=== PATIENT | female | born 1960 | race Caucasian/White ===

== ENCOUNTER 2020-04-01 10:32 | Emergency (ER) | payer MEDICARE, SELFPAY ==
[2020-04-01 10:58] VITALS: BP 185/96; PULSE 116; RESP 16; TEMP 38.1; O2SAT 98
--- NOTE | 2020-04-01 11:15 | ED.URI ---
HPI - URI/Sore Throat General Chief Complaint: Upper Respiratory Infection Stated Complaint: sinus infection Time Seen by Provider: 04/01/20 11:15 Source: patient Mode of arrival: ambulatory Limitations: no limitations History of Present Illness HPI Narrative: Zenaida Heart is a 59 yo female with facial pressure in frontal sinuses. Has sinusiitis, fever, took steroids and pressure improved but now has fever and lots of drainage. Here to get an antibiotic- states that nothing else will work Related Data Home Medications Medication Instructions Recorded Confirmed lisinopril 10 mg PO DAILY 04/01/20 04/01/20 Allergies Allergy/AdvReac Type Severity Reaction Status Date / Time No Known Allergies Allergy Verified 04/01/20 11:08 Review of Systems Review of Systems: Narrative: CONSTITUTIONAL: Denies fever, chills, sweats. EYES: Denies visual changes, redness, discharge. ENT: Denies rhinorrhea, has congestion, sinus pressure with history of left-sided polyp ,sore throat, otalgia. CARDIOVASCULAR: Denies chest pain, palpitations, edema. RESPIRATORY: Denies dyspnea, wheezing, cough GASTROINTESTINAL: Denies abdominal pain, nausea, vomiting, diarrhea. GENITOURINARY: Denies dysuria, hematuria, abnormal discharge SKIN: Denies rash or itching. NEUROLOGIC: Denies numbness, or focal weakness. PSYCHIATRIC: Denies anxiety or depression. PMFSH Past Medical History Medical History (Updated 04/01/20 @ 11:29 by Khushboo Felder CNP) Hypertension Maxillary sinus polyp Surgical History Surgical History H/O: hysterectomy History of appendectomy Family History Family History Other Hypertension Social History Social History (Updated 04/01/20 @ 11:19 by Khushboo Felder CNP) Smoking status: Never smoker Alcohol intake: never Comments At time of signature, I agree with nursing past medical, surgical, social and family history. There is no relevant family history pertinent to the presenting complaint. Exam Narrative: Exam Narrative: GENERAL: This is a well-nourished, well-developed patient, in mild distress. HEAD: normocephalic, atraumatic. EYES: Sclera clear/white. Vision is grossly intact. EARS: External ears normal, auditory canals clear and without drainage, Hearing grossly intact. NOSE: External nose normal with nasal discharge, nares with redness, has rhinorrhea.c/o bilateral facial pain THROAT: Mucous membranes moist, posterior pharynx nild erythema NECK: Neck supple, CARDIOVASCULAR: Regular rate and rhythm without murmurs, gallops, or rubs. RESPIRATORY: Clear to auscultation. Breath sounds equal bilaterally. No wheezes, rales, or rhonchi. GASTROINTESTINAL: Abdomen soft, SKIN: warm, intact with no suspicious lesions or rash, good texture and turgor. NEURO: awake, alert, and oriented to person, place and time. There were no obvious focal neurologic abnormalities. Steady gait EXTREMITIES: Normal range of motion. BACK: Nontender without deformity Course Course Emergency Course: Patient presents with complaints of bilateral sinus pressure and frontal sinuses, has been treated by primary care physician with steroids and wants an antibiotic-states that she continues to have drainage and some bilateral pain Patient started on amoxicillin, explained antibiotic dosing-patient is convinced nothing else will work- Patient to use Tylenol or ibuprofen for fever and recommended that she start taking Zyrtec in the morning for allergic symptoms Follow-up with primary care doctor Vital Signs Vital signs: Vital Signs Temperature 100.6 F H 04/01/20 10:58 Pulse Rate 116 H 04/01/20 10:58 Respiratory Rate 16 04/01/20 10:58 Blood Pressure 185/96 H 04/01/20 10:58 Pulse Oximetry 98 04/01/20 10:58 Temperature 100.6 F H 04/01/20 10:58 Pulse Rate 116 H 04/01/20 10:58 Respiratory Rate 16 04/01
== END 2020-04-01 11:38 | disposition home or self-care (01) ==
PROVIDERS: Emergency Provider Nurse Practitioner; PCP Internal Medicine
DX: J01.11 Acute recurrent frontal sinusitis (principal); I10 Essential (primary) hypertension
CPT/HCPCS: 99213; G0463

== ENCOUNTER 2022-09-02 12:49 | Emergency (ER) | payer MEDICARE, SELFPAY ==
[2022-09-02] VITALS (8 sets, daily range): BP systolic 165–182; BP diastolic 91–130; PULSE 84–98; RESP 16–18; TEMP 36.4–36.8; O2SAT 98–100
--- NOTE | 2022-09-02 13:22 | ED.GENADULT ---
HPI - General Adult General Chief complaint: Eye Problems Stated complaint: Eye irritation Time Seen by Provider: 09/02/22 12:53 History of Present Illness HPI narrative: Zenaida is a 62F with a PMH of gastric surgery, hypertension, and sinus polyps that presented to the ED with concerns of her right eye. She believes she may have got glue in it at this time. Since then she has had some itching and irritation in the eye that is not improving. She has also had some dental pain in the upper right molars and pain in the left ear. There are no vision changes, no double vision, no fever, no chills and no eye pain with extra ocular movements. Related Data Home Medications Medication Instructions Recorded Confirmed lisinopril 10 mg tablet 10 mg PO DAILY 04/01/20 04/01/20 Allergies Allergy/AdvReac Type Severity Reaction Status Date / Time No Known Allergies Allergy Verified 04/01/20 11:08 Review of Systems Review of Systems: All systems reviewed & are unremarkable except as noted in HPI and below PMFSH Past Medical History Medical History Hypertension Maxillary sinus polyp Surgical History Surgical History H/O: hysterectomy History of appendectomy Family History Family History Other Hypertension Social History Social History Smoking status: Never smoker Alcohol intake: never Exam Const: General: healthy appearing and no acute distress Nutritional Appearance: well nourished and obese HENMT: Head: normal to inspection Ears: external ears normal Face and sinus: normal facial exam Other: TM wnl on the right Dentition is poor. Right upper and lower molars are cracked with surrounding erythema and are very TTP. Eyes: Pupils: Equal, round and reactive pupils present EOM: EOMs intact bilaterally Other: conjunctival injection on the right. Course Course Emergency Course: Fluorescein eye exam showed a 4mm round corneal ulcer at 8 o'clock. Immediately after administration of eye drops the irritation went away. BP continued to be quite elevated but there was no CP or confusion. She was given metoprolol and labs were ordered. She was also given Augmentin for her dental infection. given the conjunctival injection I have concern for bacterial conjunctivitis in addition to the corneal ulcer so she was given eye drops BP dropped with metoprolol. Vital Signs Vital signs: Vital Signs Temperature 98.3 F 09/02/22 12:50 Pulse Rate 98 09/02/22 12:50 Blood Pressure 173/130 H 09/02/22 12:50 Pulse Oximetry 98 09/02/22 12:50 Oxygen Delivery Room Air 09/02/22 12:50 Temperature 98.3 F 09/02/22 14:47 Pulse Rate 84 09/02/22 14:47 Respiratory Rate 18 09/02/22 14:47 Blood Pressure 167/91 H 09/02/22 14:47 Pulse Oximetry 98 09/02/22 14:47 Oxygen Delivery Room Air 09/02/22 14:47 Medical Decision Making Vital Signs Vital Signs: Vital Signs Temperature 98.3 F 09/02/22 12:50 Pulse Rate 98 09/02/22 12:50 Blood Pressure 173/130 H 09/02/22 12:50 Pulse Oximetry 98 09/02/22 12:50 Oxygen Delivery Room Air 09/02/22 12:50 Temperature 98.3 F 09/02/22 14:47 Pulse Rate 84 09/02/22 14:47 Respiratory Rate 18 09/02/22 14:47 Blood Pressure 167/91 H 09/02/22 14:47 Pulse Oximetry 98 09/02/22 14:47 Oxygen Delivery Room Air 09/02/22 14:47 Lab Data 09/02/22 14:11 09/02/22 14:11 Labs: Lab Results 09/02/22 09/02/22 Range/Units 14:11 14:11 WBC 7.7 (4.8-10.8) K/mm3 RBC 5.78 H (4.20-5.40) M/mm3 Hgb 15.3 H (12.0-15.0) g/dL Hct 48.8 (35.0-49.0) % MCV 84.4 (78.0-102.0) fL MCH 26.5 L (27.0-31.0) pg MCHC 31.4 L (32.0-36.0) g/dL RDW 14.4 (11.6-14.4) % Plt Count
[2022-09-02] MEDS: TETRACAINE HCL 0.5% OPHTH SOLN 4 ML BTL 1 DROP RIGHT EYE (13:36)
[2022-09-02] MEDS: FLUORESCEIN SOD 1 MG/STRIP LEFT EYE (13:40)
--- NOTE | 2022-09-02 13:57 | ECG_ITS ---
Measurements Intervals [place] Rate: 91 P: 48 RI: 190 QRS: 7 QRSD: 79 T: 12 QT: 339 QTc: 418 Interpretive Statements SINUS RHYTHM NORMAL ECG NO PREVIOUS ECG AVAILABLE FOR COMPARISON Electronically Signed On 09-03-2022 14:26:56 CDT by Blake Olsen M.D.
[2022-09-02 14:17] LABS: Basophils Absolute Auto 0.04 K/mm3 (0.00-0.10); Basophils Percent Auto 0.5 % (0.0-1.0); Eosinophils Absolute Auto 0.12 K/mm3 (0.02-0.50); Eosinophils Percent Auto 1.6 % (1.0-6.0); Hematocrit 48.8 % (35.0-49.0); Hemoglobin 15.3 g/dL (12.0-15.0); Immature Granulocyte Absolute 0.02 K/mm3 (0.00-0.00); Immature Granulocyte Percent A 0.3 % (0.0-0.0); Lymphocytes Absolute Auto 2.11 K/mm3 (1.10-4.50); Lymphocytes Percent Auto 27.4 % (18.0-42.0); Mean Corpuscular HGB Conc 31.4 g/dL (32.0-36.0); Mean Corpuscular Hemoglobin 26.5 pg (27.0-31.0); Mean Corpuscular Volume 84.4 fL (78.0-102.0); Mean Platelet Volume 8.9 fl (9.2-11.8); Monocytes Percent Auto 6.5 % (2.0-11.0); Neutrophils Absolute Auto 4.9 K/mm3 (1.7-7.2); Neutrophils Percent Auto 63.7 % (50.0-70.0); Platelet Count Result 312 K/mm3 (150-420); Red Blood Count 5.78 M/mm3 (4.20-5.40); Red Cell Distribution Width 14.4 % (11.6-14.4); White Blood Count 7.7 K/mm3 (4.8-10.8)
[2022-09-02] MEDS: METOPROLOL TARTRATE 50 MG TAB PO (14:19)
[2022-09-02] MEDS: ERYTHROMYCIN OPHTH OINTMENT 3.5 GM TUBE 1 APPLIC EACH EYE (14:21)
[2022-09-02] MEDS: AMOXICILLIN/CLAVULANATE K 875-125 MG TAB 1 TABLET PO (14:23)
[2022-09-02 14:35] LABS: Alanine Aminotransferase 27 U/L (14-59); Albumin Level 3.7 g/dL (3.4-5.0); Alkaline Phosphatase 96 U/L (46-116); Anion Gap 9 mmol/L (8-16); Aspartate Amino Transferase 19 U/L (15-37); Bilirubin,Total 0.5 mg/dL (0.00-1.00); Blood Urea Nitrogen 21 mg/dL (7-18); Calcium 8.9 mg/dL (8.5-10.1); Carbon Dioxide 31 mmol/L (21-32); Chloride 103 mmol/L (98-108); Estimated CRCL calculation 85 ml/min; Estimated Glomerular Filt Rate > 60; Glucose 105 mg/dL (70-99); Osmolality Calculated 299 mOsm/kg (285-295); Potassium 3.9 mmol/L (3.5-5.1); Sodium 143 mmol/L (136-145); Total Protein 8.4 g/dL (6.4-8.2)
[2022-09-02 14:49] LABS: Troponin I 6.5 ng/L (0.00-60.4)
[2022-09-02 14:53] LABS: NT Pro B Type Natriuretic Pept 72 pg/mL (0-125)
--- NOTE | 2022-09-02 16:12 | PC.NURSE ---
verbal order for prescriptions called to [facility] in [place], patient states she doesnt have ride to get to [facility] today. RN spoke with SITA at [facility] and canceled prescription.
== END 2022-09-02 15:15 | disposition home or self-care (01) ==
PROVIDERS: Emergency Provider Family Medicine; PCP Internal Medicine
DX: S05.01XA Injury of conjunctiva and corneal abrasion without foreign body, right eye, initial encounter (principal); H10.89 Other conjunctivitis; K04.7 Periapical abscess without sinus; I16.0 Hypertensive urgency; I10 Essential (primary) hypertension; X58.XXXA Exposure to other specified factors, initial encounter
CPT/HCPCS: 36415; 80053; 83880; 84484; 85025; 93005; 99284; A9270

== ENCOUNTER 2022-09-10 13:40 | Outpatient (CLI) | payer MEDICARE, SELFPAY ==
[2022-09-10 14:05] LABS: Hematocrit 47.8 % (35.0-49.0); Hemoglobin 15.3 g/dL (12.0-15.0); Mean Corpuscular Hemoglobin 26.9 pg (27.0-31.0); Mean Platelet Volume 8.8 fl (9.2-11.8); Platelet Count Result 309 K/mm3 (150-420); Red Blood Count 5.69 M/mm3 (4.20-5.40); Red Cell Distribution Width 14.5 % (11.6-14.4); White Blood Count 8.8 K/mm3 (4.8-10.8)
[2022-09-10 14:13] LABS: Hemoglobin A1C 5.8 % (<5.7)
[2022-09-10 16:25] LABS: Alanine Aminotransferase 14 U/L (14-59); Albumin Level 3.7 g/dL (3.4-5.0); Alkaline Phosphatase 94 U/L (46-116); Anion Gap 7 mmol/L (8-16); Aspartate Amino Transferase 20 U/L (15-37); Bilirubin,Total 0.5 mg/dL (0.00-1.00); Blood Urea Nitrogen 21 mg/dL (7-18); Calcium 9.2 mg/dL (8.5-10.1); Carbon Dioxide 29 mmol/L (21-32); Chloride 106 mmol/L (98-108); Cholesterol 229 mg/dL (0-200); Estimated Glomerular Filt Rate > 60; Glucose 113 mg/dL (70-99); HDL Direct 42 mg/dL (40-60); LDL Cholesterol Calculated 153 mg/dL (<130); Osmolality Calculated 298 mOsm/kg (285-295); Potassium 4.5 mmol/L (3.5-5.1); Sodium 142 mmol/L (136-145); Thyroid Stimulating Hormone Reflex 3.36 u/IU/mL (0.36-3.74); Total Protein 7.9 g/dL (6.4-8.2); Triglycerides 168 mg/dL (0-150)
== END 2022-09-10 13:41 | disposition home or self-care (01) ==
LOC: CHSLAB 13:42
PROVIDERS: PCP Family Medicine; Visit Provider Family Medicine
DX: R73.09 Other abnormal glucose (principal); E11.9 Type 2 diabetes mellitus without complications
CPT/HCPCS: 36415; 80053; 80061; 83036; 84443; 85027

== ENCOUNTER 2023-10-14 12:19 | Emergency (ER) | payer MEDICARE, SELFPAY ==
[2023-10-14] VITALS (12 sets, daily range): BP systolic 147–230; BP diastolic 82–94; PULSE 88–100; RESP 16–17; TEMP 36.5–36.7; O2SAT 94–100
--- NOTE | ~2023-10-14 | XR_ITS ---
EXAMINATION: XR ankle RT 2V DATE: 10/14/2023 13:26 INDICATION: Right ankle injury and pain. TECHNIQUE: 2 views of right ankle were obtained. COMPARISON: None. FINDINGS: Bone alignment is normal. No fracture. There is mild arthritis of talonavicular joint. Ther e is mild osteoarthritis of tibiotalar joint with osteochondral lesions of the talar dome. Ankle soft tissue swelling is noted. IMPRESSION: 1. Polyarticular osteoarthritis. Reviewed, dictated and finalized at location A.
--- NOTE | ~2023-10-14 | XR_ITS ---
EXAMINATION: XR knee LT 3V DATE: 10/14/2023 13:27 INDICATION: Fall. TECHNIQUE: 3 views of left knee were obtained. COMPARISON: None. FINDINGS: Bone alignment is normal. No fracture. There is moderate osteoarthritis of medial and de luna lofemoral compartments and mild osteoarthritis of lateral compartment. No knee joint effusion. IMPRESSION: 1. Moderate left knee osteoarthritis. Reviewed, dictated and finalized at location A.
--- NOTE | ~2023-10-14 | XR_ITS ---
EXAMINATION: XR foot RT 2V DATE: 10/14/2023 13:26 INDICATION: Right foot injury and pain. TECHNIQUE: 2 views of right foot were obtained. COMPARISON: None. FINDINGS: Bone alignment is normal. No fracture. There is mild osteoarthritis of talonavicular joint. There are enthesophytes at the posterior and plantar aspects of calcaneal tuberosity. IMPRESSION: 1. No fracture. Reviewed, dictated and finalized at location A. IMPRESSION: 1. No fracture.
--- NOTE | ~2023-10-14 | XR_ITS ---
EXAMINATION: XR nasal bones min 3V DATE: 10/14/2023 13:27 INDICATION: Nose injury. TECHNIQUE: 3 views of the nasal bones were obtained. COMPARISON: None. FINDINGS: Bone alignment is normal. No fracture. IMPRESSION: 1. No fracture. Reviewed, dictated and finalized at location A. IMPRESSION: 1. No fracture.
--- NOTE | ~2023-10-14 | XR_ITS ---
EXAMINATION: XR knee RT 3V DATE: 10/14/2023 13:27 INDICATION: Right knee injury. TECHNIQUE: 3 views of right knee on 4 radiographs were obtained. COMPARISON: None. FINDINGS: Bone alignment is normal. No fracture. There is moderate osteoarthritis of medial and de luna lofemoral compartments and mild osteoarthritis of lateral compartment. No knee joint effusion. IMPRESSION: 1. Moderate right knee osteoarthritis. Reviewed, dictated and finalized at location A.
--- NOTE | 2023-10-14 12:45 | PC.NURSE ---
Patient taken down to radiology.
--- NOTE | 2023-10-14 13:06 | ED.FALL ---
HPI - Fall General Chief Complaint: Fall Stated Complaint: fall, nosebleed left nares Source: patient Mode of arrival: ambulatory Limitations: no limitations History of Present Illness HPI Narrative: 63 year old female presents to the Emergency Department complaining of fall this morning. Patient states she slipped in basement and fell onto concrete floor. States she landed on both knees and outstretched hands. States her wrists are fine, but knees are sore. She also struck her nose on a rocker. She would like her right ankle and foot x-rayed. Her BP is noted to be high. She has not been taking her medications since running out in June. Denies chest pain or shortness of breath. complaint: fall Onset (ago): minute(s) Fall from: standing Place fall occurred: home Loss of consciousness: none Prolonged down time: no Symptoms prior to fall: none Context: tripped/slipped Location of injury: face (nose, bilateral knees) Related Data Allergies Allergy/AdvReac Type Severity Reaction Status Date / Time No Known Allergies Allergy Verified 10/14/23 12:25 Review of Systems Review of Systems: All systems reviewed & are unremarkable except as noted in HPI and below Constitutional: Constitutional: Reports as per HPI Eyes: Eyes: Reports as per HPI ENT: Reports system reviewed and no additional complaints, except as documented, Denies dizziness and Denies epistaxis Cardiovascular: Cardiovascular: Reports as per HPI and Denies chest pain Respiratory: Respiratory: Reports as per HPI and Denies dyspnea Gastrointestinal: Gastrointestinal: Reports as per HPI, Denies abdominal pain, Denies diarrhea, Denies nausea and Denies vomiting Genitourinary: Genitourinary: Reports no additional female genitourinary complaints Musculoskeletal: Musculoskeletal: Reports no additional musculoskeletal complaints and Reports arthralgias (bilateral knees) Integumentary/Breasts: Skin/Breast: Reports system reviewed and no additional complaints, except as docu Neurologic: Reports system reviewed and no additional complaints, except as documented, Denies dizziness, Denies syncope, Denies headache(s), Denies numbness and Denies weakness Psychiatric: Psychiatric: Reports no additional psychiatric complaints Endocrine: Endocrine: Reports no additional endocrine complaints Hematologic/Lymphatic: Hematologic/Lymphatic: Reports no additional hematologic/lymphatic complaints Allergic/Immunologic: Allergic/Immunologic: Reports no additional allergic/immunologic complaints PMFSH Past Medical History Medical History Hypertension Maxillary sinus polyp Surgical History Surgical History H/O: hysterectomy History of appendectomy Family History Family History Other Hypertension Social History Social History Smoking status: Never smoker Alcohol intake: never Exam Const: General: no acute distress and alert Nutritional Appearance: obese Orientation/consciousness: patient oriented x3 Limitations: no limitations HENMT: Head: normal to inspection, no contusions and no hematomas Ears: external ears normal Face/Nose/Sinus: Normal external nose present (tiny superficial laceration to upper mid nose) Face and sinus: normal facial exam Mouth: Yes Normal oral and palatal mucosa present Throat: posterior oropharynx normal Eyes: Conjunctivae: conjunctivae normal Pupils: Equal, round and reactive pupils present EOM: EOMs intact bilaterally Direct Ophthalmoscopy: no photophobia Neck: Neck: normal visual inspection Other: non-tender Chest: Chest palpation & inspection: normal inspection of the chest and no tenderness Resp: Effort & Inspection: normal respiratory effort Auscultation: clear to auscultation bilaterall
--- NOTE | 2023-10-14 13:21 | PC.NURSE ---
Patient back in room from radiology.
[2023-10-14] MEDS: lisinopriL 10 MG TABLET 20 MG PO (13:24)
== END 2023-10-14 14:15 | disposition home or self-care (01) ==
PROVIDERS: Emergency Provider Emergency Medicine; PCP Internal Medicine
DX: T14.8XXA Other injury of unspecified body region, initial encounter (principal); W01.0XXA Fall on same level from slipping, tripping and stumbling without subsequent striking against object, initial encounter; I10 Essential (primary) hypertension; Z79.84 Long term (current) use of oral hypoglycemic drugs
CPT/HCPCS: 70160; 73562; 73600; 73620; 99284; A9270

== ENCOUNTER 2023-10-22 13:14 | Emergency (ER) | payer MEDICARE, SELFPAY ==
[2023-10-22] VITALS (17 sets, daily range): BP systolic 135–184; BP diastolic 72–122; PULSE 97–99; RESP 20; TEMP 36.4; O2SAT 96–99
--- NOTE | 2023-10-22 13:38 | ED.EXTPRO ---
HPI - Extremity Problem General Chief complaint: Extremity Problem,Nontraumatic Stated complaint: right leg wound/pain Time Seen by Provider: 10/22/23 13:38 Source: patient Mode of arrival: ambulatory Limitations: no limitations History of Present Illness HPI Narrative: 63-year-old female with a history of hypertension, dyslipidemia presented to the ER after an accidental fall on 10/14/2023 for right knee abrasion, nasal abrasion, bilateral knee, right foot and ankle injury. She had x-rays of both knees, right ankle, right foot and nasal bones which were noted to be negative. She presents to the ER with -- right knee blister which is draining bloody liquid with surrounding erythema. No fever or chills -- high blood pressure with a current reading of 158/107 MD Complaint: extremity swelling ( right knee blister with surrounding cellulitis) Onset (ago): day(s) ( 3 days) Pain Consistency: constant Location: right Radiation: none Relieving factors: nothing Exacerbating factors: nothing Associated symptoms: denies other symptoms Related Data Allergies Allergy/AdvReac Type Severity Reaction Status Date / Time No Known Allergies Allergy Verified 10/14/23 12:25 Review of Systems Review of Systems: All systems reviewed & are unremarkable except as noted in HPI and below Constitutional: Constitutional: Reports as per HPI and Reports no additional constitutional complaints Eyes: Eyes: Reports as per HPI and Reports no additional eye complaints ENT: Reports system reviewed and no additional complaints, except as documented and Reports as per HPI Cardiovascular: Cardiovascular: Reports as per HPI and Reports no additional cardiovascular complaints Respiratory: Respiratory: Reports as per HPI and Reports no additional respiratory complaints Gastrointestinal: Gastrointestinal: Reports as per HPI and Reports no additional gastrointestinal complaints Genitourinary: Genitourinary: Reports no additional female genitourinary complaints and Reports as per HPI Musculoskeletal: Musculoskeletal: Reports no additional musculoskeletal complaints and Reports as per HPI Integumentary/Breasts: Skin/Breast: Reports system reviewed and no additional complaints, except as docu Comments: right knee blister measuring 3 cm with bloody discharge surrounding erythema/ induration with pain Neurologic: Reports system reviewed and no additional complaints, except as documented and Reports as per HPI Psychiatric: Psychiatric: Reports no additional psychiatric complaints and Reports as per HPI Endocrine: Endocrine: Reports no additional endocrine complaints and Reports as per HPI Hematologic/Lymphatic: Hematologic/Lymphatic: Reports no additional hematologic/lymphatic complaints and Reports as per HPI Allergic/Immunologic: Allergic/Immunologic: Reports no additional allergic/immunologic complaints and Reports as per HPI [facility] Past Medical History Medical History Hypertension Maxillary sinus polyp Surgical History Surgical History H/O: hysterectomy History of appendectomy Family History Family History Other Hypertension Social History Social History Smoking status: Never smoker Alcohol intake: never Exam Narrative: hypertension with a blood pressure of 158/107 Const: General: no acute distress Nutritional Appearance: obese Orientation/consciousness: patient oriented x3 Limitations: no limitations HENMT: Head: normal to inspection Ears: external ears normal Face/Nose/Sinus: Normal external nose present Face and sinus: normal facial exam Mouth: Yes Normal oral and palatal mucosa present Throat: posterior oropharynx normal Eyes: Conjunctivae: conjunctivae normal Pupils: Equal, round and r
--- NOTE | 2023-10-22 13:52 | ECG_ITS ---
Test Date: 2023-10-22 14:05:25 Measurements Intervals [place] Rate: 95 P: 50 CO: 183 QRS: 47 QRSD: 71 T: 35 QT: 331 QTc: 417 Interpretive Statements SINUS RHYTHM NONSPECIFIC T-WAVE ABNORMALITY No previous ECG available for comparison Electronically Signed On 10-23-2023 12:29:36 CDT by Sara Fletcher M.D.
[2023-10-22 14:38] LABS: Basophils Absolute Auto 0.06 K/mm3 (0.00-0.10); Basophils Percent Auto 0.6 % (0.0-1.0); Eosinophils Absolute Auto 0.17 K/mm3 (0.02-0.50); Eosinophils Percent Auto 1.8 % (1.0-6.0); Hemoglobin 13.6 g/dL (11.7-13.8); Immature Granulocyte Absolute 0.04 K/mm3 (0.00-0.00); Immature Granulocyte Percent A 0.4 % (0.0-0.0); Lymphocytes Absolute Auto 2.73 K/mm3 (1.10-4.50); Lymphocytes Percent Auto 28.7 % (18.0-42.0); Mean Corpuscular HGB Conc 30.2 g/dL (32-36); Mean Corpuscular Hemoglobin 26.3 pg (27.0-31.0); Mean Corpuscular Volume 86.9 fL (78.0-102.0); Mean Platelet Volume 10.1 fl (9.2-11.8); Monocytes Absolute Auto 0.65 K/mm3 (0.10-0.90); Monocytes Percent Auto 6.8 % (2.0-11.0); Neutrophils Absolute Auto 5.86 K/mm3 (1.70-7.20); Neutrophils Percent Auto 61.7 % (50.0-70.0); Red Blood Count 5.18 M/mm3 (4.20-5.40); Red Cell Distribution Width 14.6 % (11.6-14.4); White Blood Count 9.5 K/mm3 (4.8-10.8)
[2023-10-22 14:45] LABS: Platelet Count Result 127 K/mm3 (150-420)
[2023-10-22 15:04] LABS: Alanine Aminotransferase 28 U/L (14-59); Albumin Level 3.1 g/dL (3.4-5.0); Alkaline Phosphatase 82 U/L (46-116); Anion Gap 8 mmol/L (4-12); Aspartate Amino Transferase 37 U/L (15-37); Bilirubin,Total 0.6 mg/dL (0.00-1.00); Blood Urea Nitrogen 12 mg/dL (7-18); Calcium 8.8 mg/dL (8.5-10.1); Carbon Dioxide 29 mmol/L (21-32); Chloride 102 mmol/L (98-108); Estimated Glomerular Filt Rate > 60; Glucose 102 mg/dL (70-99); Osmolality Calculated 287 mOsm/kg (285-295); Sodium 139 mmol/L (136-145); Thyroid Stimulating Hormone 4.92 uIU/mL (0.36-3.74); Total Protein 7.5 g/dL (6.4-8.2); Troponin I 4.6 ng/L (0.00-60.4)
[2023-10-22 15:08] LABS: Appearance Urine Clear (Clear); Bilirubin Urine Negative (Negative); Blood Urine Negative (Negative); Color Urine Light Yellow (Yellow); Glucose Urine UA Negative (Negative); Ketones Urine Negative (Negative); Leukocyte Esterase Ur Negative LEU/UL (Negative); Nitrate Urine Negative (Negative); Protein Urine Negative (Negative); Urobilinogen Urine 0.2 mg/dL (0.2-1.0); pH Urine 6.5 (5.0-8.0)
[2023-10-22 15:09] LABS: Add Urine Microscopic? NO
--- NOTE | 2023-10-22 15:19 | PC.NURSE ---
PT RESTING PER COT, FAMILY IN ROOM. UPDATED TO EXTENDED WAIT TIME DUE TO LAB RESULTS. PT VOICED UNDERSTANDING. CALL [facility] IN [place]. DENIES ANY NEEDS AT THIS TIME.
[2023-10-22] MEDS: TETANUS,DIPHTHERIA,AC PERTUSSIS ADULT 0.5 ML (ADACEL) IM (15:42)
--- NOTE | 2023-10-28 12:47 | PC.NURSE ---
final anaerobic culture results: no anaerobes isolated final aerobic culture results: no growth
== END 2023-10-22 15:44 | disposition home or self-care (01) ==
PROVIDERS: Emergency Provider Internal Medicine Critical Care Medicine; PCP Internal Medicine
DX: L03.115 Cellulitis of right lower limb (principal); I10 Essential (primary) hypertension; E78.5 Hyperlipidemia, unspecified; Z23 Encounter for immunization
CPT/HCPCS: 36415; 80053; 81003; 84443; 84484; 85025; 85055; 87070; 87075; 87205; 90471; 90715; 93005; 99284

== ENCOUNTER 2024-10-26 10:40 | Inpatient (IN) | payer MEDICARE, SELFPAY ==
[2024-10-26] VITALS (20 sets, daily range): BP systolic 142–197; BP diastolic 81–129; PULSE 104–116; RESP 15–33; TEMP 35.7–36.9; O2SAT 80–100; BMI 53.6
--- NOTE | ~2024-10-26 | XR_ITS ---
XR chest 1V portable Ordering provider: Gabriel Huff History: 64 years Female with . dyspnea . Comparison: None. FINDINGS: MEDIASTINUM: The cardiac silhouette is not enlarged. Prominent edgard LUNGS: No effusions or pneumothorax. Prominent markings bilaterally more on the left side which may i ndicate atelectasis versus early pneumonia. Follow-up advised. OTHER: No free air under the diaphragm. Degenerative changes of the spine. IMPRESSION: Prominent bronchovascular markings in the lower lobes which may indicate atelectasis versus pneumonia . Follow-up advised. Reviewed, dictated and finalized at location A. IMPRESSION: Prominent bronchovascular markings in the lower lobes which may indicate atelec tasis versus pneumonia. Follow-up advised.
--- NOTE | 2024-10-26 11:05 | ECG_ITS ---
Test Date: 2024-10-26 11:20:58 Measurements Intervals [place] Rate: 112 P: 36 FL: 157 QRS: 24 QRSD: 82 T: 55 QT: 325 QTc: 445 Interpretive Statements SINUS TACHYCARDIA LEFT VENTRICULAR HYPERTROPHY WITH ST-T CHANGE CONSIDER ANTERIOR INFARCT, AGE INDETERMINATE CONSIDER INFERIOR INFARCT, AGE INDETERMINATE BASELINE ARTIFACT- I, II, III, AVR, AVL, AVF, V1 ABNORMAL ECG Compared to ECG 10/22/2023 14:05:25 HEART RATE HAS INCREASED Electronically Signed On 10-26-2024 11:36:52 CDT by Faraz Blancas D.O.
--- NOTE | 2024-10-26 11:41 | PC.NURSE ---
Pt a difficult stick for IV access and blood work. Two ED RNs attempted for PIV, called for US IV access.
--- OUTSIDE RECORDS SUMMARY | 2024-10-26 11:46 | XMS_ITS | Referral Summary ---
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 Name Role Phone Magali Jon NP Primary Care Provider Encounters Date Type Department Care Team Description 09/21/2024 Telephone [facility] Medical [facility] Primary Care at [address] [place] [phone] Magali Jon NP Recommendation Request; Medical Question/Miscellaneous 09/21/2024 10:30 AM CDT Office Visit [facility] Primary Care at [address] [phone] Magali Jon NP Wheezing (Primary Dx); Class 3 severe obesity due to excess calories with serious comorbidity and body mass index (BMI) of 50.0 to 59.9 in adult; Benign hypertension; Mixed hyperlipidemia; Vitamin D deficiency; Subclinical hypothyroidism; Prediabetes; Screening for diabetes mellitus; Need for hepatitis B screening test; Encounter for hepatitis C screening test for low risk patient; Colon cancer screening 08/17/2024 8:54 PM CDT - 08/17/2024 11:57 PM CDT Emergency [facility] Emergency Department [address] [place] [address] Amanuel Rendon MD Hypertensive urgency (Primary Dx); Subacute maxillary sinusitis; Wheezing Discharge Disposition: Discharge to home or self care from Last 3 Months Allergies Active Allergy Reactions Criticality Noted Date Comments Penicillins Unknown 04/23/2020 Medications albuterol HFA (PROVENTIL HFA,VENTOLIN HFA,PROAIR HFA) 90 mcg/actuation inhaler Inhale 2 puffs every 4 (four) hours as needed for wheezing 18 g 1 5 Active cholecalciferol (Vitamin D3) 2000 unit capsule Take 1 capsule (2,000 Units total) by mouth daily 5 09/02/19 28 Active ascorbic acid (ascorbic acid with jim hips) 500 mg tablet,chewable Take 1 tablet/chew tab (500 mg total) by mouth daily Active multivitamin tabletIndicatio ns:Vitamin Deficiency Prevention Take 1 tablet by mouth daily Active budesonide-form oteroL (SYMBICORT) 160-4.5 mcg/actuation inhalerIndicati ons:Wheezing Inhale 2 puffs 2 (two) times a day Rinse mouth with water after use. Do not swallow. 1 each 2 5 Active lisinopriL (PRINIVIL,ZESTR IL) 10 mg tablet Take 1 tablet (10 mg total) by mouth daily 30 tablet 1 5 12/08/19 25 Active lisinopriL (PRINIVIL,ZESTR IL) 20 mg tablet Take 0.5 tablets (10 mg total) by mouth daily 15 tablet 1 5 10/09/19 25 Discontinu ed(Reorder ) Active Problems Problem Noted Date Diagnosed Date Prediabetes 09/22/2024 Assessment & Plan (09/22/2024 8:44 AM CDT): A1c was 5.9 in 2019, rechecking today. Shortness of breath 09/21/2024 Wheezing 09/21/2024 Assessment & Plan (09/22/2024 8:49 AM CDT): Noted during exam today. Patient states albuterol made her symptoms worse, and doxycycline did not help either. We will start Symbicort inhaler, 2 puffs twice a day scheduled. I encouraged patient to start taking Zyrtec every day in case she is allergic to cats. She can also use Benadryl as needed. Get allergy panel labs done, which will further investigate possible cause for wheezing. I discussed patient seeing an glued wood tester, but her sister would like to just do the labs instead of having to go to a specialist visit. Hydronephrosis 05/09/2020 Assessment & Plan (05/09/2020 4:59 PM PROGRAMMER ANALYST CONSULTANT): Could certainly have been due to a stone but without seeing this on her CT scan will refer to urology for further evaluation. Patient is aware of long-term risks posed by chronic hydronephrosis and hydroureter. Check metabolic panel next week for renal function. Leukocytosis 05/09/2020 Assessment & Plan (05/09/2020 5:00 PM PROGRAMMER ANALYST CONSULTANT): Repeat CBC next week to ensure normalization of her white blood cell count. Subclinical hypothyroidism 01/21/2019 Assessment & Plan (09/22/2024 8:47 AM CDT): We will check thyroid labs. Patient is not on any thyroid medication. Assessment & Plan (01/24/2020 1:33 PM CDT): Currently asymptomatic and will check TSH and free T4 before next visit. Assessment & Plan (01/21/2019 5:39 PM CDT): Currently asymptomatic and will therefore check TSH and free T4 in 3 months and should call back for results. Class 3 severe obesity due t o excess calories with serious comorbidity and body mass index (BMI) of 50.0 to 59.9 in adult 01/01/2018 Assessment & Plan (09/22/2024 8:46 AM CDT): Healthy diet encouraged, and regular exercise encouraged. Assessment & Plan (01/24/2020 1:34 PM CDT): Patient is encouraged to lose weight with a combination of caloric reduction and increased exercise. Various strategies discussed. The long-term risks associated with continued morbid obesity discussed. Assessment & Plan (01/21/2019 5:39 PM CDT): Patient is encouraged to lose weight with a combination of caloric reduction and increased exercise. Various strategies discussed. The long-term risks associated with continued morbid obesity discussed. Assessment & Plan (01/01/2018 1:39 PM CDT): We discussed a comprehensive list of medical conditions and proposed recommendations for each. We discussed the importance of increased exercise, fall prevention, proper nutrition, and suggested joining [facility] to accomplish most of these goals. Patient was given an age appropriate Medicare preventive services checklist. Please see the EMR regarding details of their health risk assessment and preventive services checklist. Impaired fasting glucose 12/31/2016 Assessment & Plan (01/24/2020 1:33 PM CDT): Patient should reduce sugar and carbs, increase exercise, maintain proper body weight, and will check an A1c once or twice yearly. Assessment & Plan (01/21/2019 5:39 PM CDT): Patient should reduce sugar and carbs, increase exercise, maintain proper body weight, and will check an A1c once or twice yearly. Assessment & Plan (01/01/2018 1:38 PM CDT): Patient should reduce sugar and carbs, increase exercise, maintain proper body weight, and will check an A1c once or twice yearly. Assessment & Plan (12/31/2016 1:37 PM CDT): Patient should reduce sugar and carbs, increase exercise, maintain proper body weight, and will check an A1c once or twice yearly. Benign hypertension 09/25/2013 Overview (01/01/2018): Has element of white coat hypertension and usually well controlled at home. Taking 1/2 tablet lisinopril. Assessment & Plan (09/22/2024 8:45 AM CDT): Blood pressure is mildly elevated today. Continue lisinopril 10 mg daily at this point. She is very anxious in the office today. Low-salt diet recommended, and weight loss. Assessment & Plan (05/09/2020 5:00 PM PROGRAMMER ANALYST CONSULTANT): Remains well controlled at home and there for will discontinue the metoprolol given in the ER and continue her lisinopril half tablet daily. Assessment & Plan (01/24/2020 1:33 PM CDT): Well controlled on the current regimen. Avoidance of salt, proper body weight, and routine exercise recommended. Assessment & Plan (01/21/2019 5:39 PM CDT): Well controlled on the current regimen. Avoidance of salt, proper body weight, and routine exercise recommended. Assessment & Plan (01/01/2018 1:38 PM CDT): Well controlled on the current regimen. Avoidance of salt, proper body weight, and routine exercise recommended. Assessment & Plan (12/31/2016 1:36 PM CDT): Well controlled on the current regimen. Avoidance of salt, proper body weight, and routine exercise recommended. Hyperlipidemia 09/25/2013 Overview (08/15/2016): HYPERLIPIDEMIA NEC/NOS Assessment & Plan (09/22/2024 8:45 AM CDT): Patient reports she has refused medication in the past. We will recheck cholesterol panel fasting. Low-cholesterol diet recommended. Assessment & Plan (01/24/2020 1:33 PM CDT): Borderline risk for ASCVD and therefore recommend diet exercise for now. Assessment & Plan (01/21/2019 5:39 PM CDT): Diet and exercise recommended for ASCVD risk of 6.7% Assessment & Plan (01/01/2018 1:38 PM CDT): Risk of ASCVD 5.6% and therefore diet exercise recommended. Assessment & Plan (12/31/2016 1:37 PM CDT): Low risk for ASCVD at 3.7% therefore recommend diet exercise only. Peptic ulcer 09/25/2013 Overview (08/15/2016): PUD (peptic ulcer disease) Assessment & Plan (01/01/2018 1:38 PM CDT): Denies symptoms or need for medication currently. Assessment & Plan (12/31/2016 1:37 PM CDT): Declines need for medication. Vitamin D deficiency 10/15/2012 Overview (08/15/2016): Vitamin D deficiency Assessment & Plan (09/22/2024 8:46 AM CDT): We will check vitamin-D labs. Patient does take vitamin-D 2000 units daily. Assessment & Plan (01/24/2020 1:33 PM CDT): Increase vitamin-D supplementation check level in 1 year. Assessment & Plan (01/21/2019 5:39 PM CDT): Restart vitamin-D supplementation check level before next visit. Assessment & Plan (01/01/2018 1:38 PM CDT): Needs more regular intake of her vitamin-D 2000 units daily and will check level before next visit. Assessment & Plan (12/31/2016 1:37 PM CDT): Continue current supplementation and check level in 1 year. Resolved Problems Problem Noted Date Diagnosed Date Resolved Date Morbid obesity 12/31/2016 01/01/2018 Assessment & Plan (12/31/2016 1:37 PM CDT): Patient is encouraged to lose weight with a combination of caloric reduction and increased exercise. Various strategies discussed. The long-term risks associated with continued morbid obesity discussed. BMI 50.0-59.9, adult 12/31/2016 018 Assessment & Plan (12/31/2016 1:37 PM CDT): See above Medicare annual wellness visit, subsequent 12/31/2016 09/20/2024 Overview (01/24/2020): cologuard due 07/2022 Assessment & Plan (01/24/2020 1:34 PM CDT): We discussed a comprehensive list of medical conditions and proposed recommendations for each. We discussed the importance of increased exercise, fall prevention, proper nutrition, and suggested joining [facility] to accomplish most of these goals. Patient was given an age appropriate Medicare preventive services checklist. Please see the EMR regarding details of their health risk assessment and preventive services checklist. Will see her back in 1 year for wellness visit fasting lab sooner if needed. Assessment & Plan (01/21/2019 5:40 PM CDT): We discussed a comprehensive list of medical conditions and proposed recommendations for each. We discussed the importance of increased exercise, fall prevention, proper nutrition, and suggested joining [facility] to accomplish most of these goals. Patient was given an age appropriate Medicare preventive services checklist. Please see the EMR regarding details of their health risk assessment and preventive services checklist. Will need to confirm the date of her last Cologuard but appears it may be due now and will call her back with this information. Assessment & Plan (01/01/2018 1:39 PM CDT): We discussed a comprehensive list of medical conditions and proposed recommendations for each. We discussed the importance of increased exercise, fall prevention, proper nutrition, and suggested joining [facility] to accomplish most of these goals. Patient was given an age appropriate Medicare preventive services checklist. Patient declines bone density scanning is aware the risks this poses to her health. She declines mammograms and is aware the risks this poses to her health. Declines flu shots and is aware the risks this poses to her health. Please see the EMR regarding details of their health risk assessment and preventive services checklist. Assessment & Plan (12/31/2016 1:39 PM CDT): We discussed a comprehensive list of medical conditions and proposed recommendations for each. We discussed the importance of increased exercise, fall prevention, proper nutrition, and suggested joining [facility] to accomplish most of these goals. Patient was given an age appropriate Medicare preventive services checklist. Please see the EMR regarding details of their health risk assessment and preventive services checklist. Will see her back in 1 year for another wellness visit and fasting lab sooner if needed. Color guard due December 2018. Bone density scan due and she will call back for results. At low risk for fall 12/31/2016 025 Assessment & Plan (01/24/2020 1:34 PM CDT): Timed get up and go test normal. Assessment & Plan (01/21/2019 5:40 PM CDT): Timed get up and go test normal. Assessment & Plan (01/01/2018 1:39 PM CDT): Timed get up and go test normal. Assessment & Plan (12/31/2016 1:38 PM CDT): Timed get up and go test normal. Adiposity 09/25/2013 12/31/2016 Overview (08/15/2016): Obesity Immunizations Immunization Administration Dates Next Due Influenza, Unspecified 05/09/2020(Deferr ed: Patient Refused),03/22/2020(Deferred: Patient Refused),03/16/2020(Deferred: Patient Refused),02/09/2019(Deferred: Patient Refused),02/09/2019(Deferred: Patient Refused),02/09/2019(Deferred: Patient Refused),01/21/2019(Deferred: Patient Refused),02/09/2018(Deferred: Patient Refused) Tdap 10/22/2023,08/10/2010 Social History Tobacco Use Types Packs/Day Years Used Date Smoking Tobacco: Never Smokeless Tobacco: Never Alcohol Use Standard Drinks/Week Comments No 0 (1 standard drink = 0.6 oz pur e alcohol) AUDIT-C Answer Date Recorded Q1: How often do you have a drink containing alcohol? Never 09/21/2024 Q2: How many drinks containi ng alcohol do you have on a typical day when you are drinking? Patient does not drink Q3: How often do you have si x or more drinks on one occasion? Never 09/21/2024 PHQ-2 Answer Date Recorded PHQ-2 Total Score (If total score is 3 or more points, staff should administer the PHQ-9) 1 09/21/2024 PHQ-9 Answer Date Recorded PHQ-9 Total Score 8 09/21/2024 Personal Safety Answer Date Recorded Have you ever been in or are you currently in a harmful physical or emotional relationship or is someone making you feel afraid or unsafe? Denies 08/17/2024 Comments No Sex and Gender Information Value Date Recorded Sex Assigned at Not on file Legal Sex Female 2:38 PM PROGRAMMER ANALYST CONSULTANT Gender Identity Not on file Sexual Orientation Not on file Last Filed Vital Signs Vital Sign Reading Time Taken Comments Blood Pressure 140/84 09/21/2024 11:04 AM CDT Pulse 104 09/21/2024 10:37 AM CDT Temperature 36.4 C (97.5 F) 09/21/2024 10:37 AM CDT Respiratory Rate 20 09/21/2024 10:37 AM CDT Oxygen Saturation 93% 09/21/2024 10:37 AM CDT Inhaled Oxygen Concentration - - Weight 119.7 kg (264 lb) 09/21/2024 10:37 AM CDT Height 149.9 cm (4' 11) 09/21/2024 10:37 AM CDT Body Mass Index 53.32 09/21/2024 10:37 AM CDT Plan of Treatment Not on file Procedures Procedure Name Priority Date/Time Associated Diagnosis Comments NC CRITICAL CARE ILL/INJURED PATIENT INIT 30-74 MIN Routine 08/17/2024 11:25 PM CDT BLOOD GAS, VENOUS STAT 08/17/2024 9:5 9 PM CDT XR CHEST 1 VIEW ED 08/17/2024 3:52 PM CDT CRP (ACUTE PHASE) STAT 08/17/2024 3:2 2 PM CDT D-DIMER, QUANTITATIVE STAT 08/17/2024 3:22 PM CDT PRO B-TYPE NATRIURETIC PEPTIDE Add-On 08/17/2024 3:22 PM CDT EGFR STAT 08/17/2024 3:22 PM CDT DIFFERENTIAL AUTO STAT 08/17/2024 3:2 2 PM CDT COMPREHENSIVE METABOLIC PANEL STAT 08/17/2024 3:22 PM CDT CBC WITH AUTO DIFFERENTIAL STAT 08/17/2024 3:22 PM CDT INFLUENZA A/B, RSV, AND COVID-19 PCR STAT 08/17/2024 3:22 PM CDT STOOL DNA COLOGUARD Routine 07/14/2019 Screening for malignant neoplasm of the rectum Special screening for malignant neoplasms, colon DIAGNOSTIC MAMMOGRAM BILATERAL W WILMER Routine 08/06/2016 7:29 PM CDT HM DEXA SCAN Routine 10/02/2011 from Last 3 Months or Most Recently Relevant to Health Maintenance Results * NC CRITICAL CARE ILL/INJURED PATIENT INIT 30-74 MIN (08/17/2024 11:25 PM CDT) Narrative Amanuel Rendon MD - 08/17/2024 11:25 PM CDT Amanuel Rendon MD 08/17/2024 11:25 PM Critical Care Performed by: Amanuel Rendon MD Authorized by: Amanuel Rendon MD Critical care provider statement: As reflected in the history, physical exam, orders, notes, and/or MDM, I was personally present while the patient was critically ill and provided critical care services for 60 minutes, excluding time involved in separately billable procedures. Critical care was necessary to treat or prevent imminent or life-threatening deterioration of the following condition(s): hypertensive crisis us Amanuel Rendon MD IN CLINIC/BEDSIDE ORDERABLES Final Result * (ABNORMAL) Blood gas, venous (08/17/2024 9:59 PM CDT) pH, Venous 7.39 7.32 - 7.43 PCO2, Venous 51(H) 40 - 50 mmHg [facility] ([place]) PO2, Venous 63 mmHg [facility] ([place]) HCO3 Venous, Calculated 30 20 - 30 mmol/L [facility] ([place]) BE, venous 4 mmol/L [facility] ([place]) Comment: Interpretive Data No Reference Range Established Current Interpretive Data was last revised on 2017. Blood 08/17/2024 9:59 PM CDT 08/17/2024 10:11 PM CDT us Amanuel Rendon MD LAB BLOOD ORDERABLES Final R esult [facility] COUNT INCLUDES THE [facility] ([place]) 1 [facility] Department [place] [address] * XR Chest 1 Vw Portable (08/17/2024 3:52 PM CDT) Anatomical Region Laterality Modality Body, Chest N/A Computed Radiogr aphy 08/17/2024 4:41 PM CDT Narrative 08/17/2024 4:41 PM CDT EXAM DESCRIPTION: XR CHEST 1 VIEW REASON FOR STUDY: cough Per Pt she had a cough x 1 month. Per Pt she got a cat last year and since then has had increased congestion. Pt reports not taking any of her BP meds for over a year and has not had the rest of her meds x1 month. TECHNIQUE: Frontal radiographic view(s) of the chest. COMPARISON: 04/23/2020. FINDINGS: LUNGS: No focal opacity, pleural effusion, or pneumothorax. HEART/MEDIASTINUM: Cardiac silhouette normal in size. Mediastinal and hilar contours appear normal. LINES/TUBES: None. BONES: No acute osseous abnormality. IMPRESSION: No acute cardiopulmonary abnormality. THIS IS AN ELECTRONICALLY VERIFIED FINAL REPORT 08/17/2024 4:41 PM - Electronically signed by Nicholas Amos M.D. CH: MELA Report ID: [id number] Reading Location: [id number] Procedure Note Nicholas Amos Jr., MD - 08/17/2024 EXAM DESCRIPTION: XR CHEST 1 VIEW REASON FOR STUDY: cough Per Pt she had a cough x 1 month. Per Pt she got a cat last year and since then has had increased congestion. Pt reports not taking any of her BPmeds for over a year and has not had the rest of her meds x1 month. TECHNIQUE: Frontal radiographic view(s) of the chest. COMPARISON: 04/23/2020. FINDINGS: LUNGS: No focal opacity, pleural effusion, or pneumothorax. HEART/MEDIASTINUM: Cardiac silhouette normal in size. Mediastinal andhilar contours appear normal. LINES/TUBES: None. BONES: No acute osseous abnormality. IMPRESSION: No acute cardiopulmonary abnormality. THIS IS AN ELECTRONICALLY VERIFIED FINAL REPORT 08/17/2024 4:41 PM - Electronically signed by Nicholas Amos M.D. CH: Report ID: [id number] Reading Location: [place] [address] Amanuel Rendon MD IMG XR PROCEDURES Final Resu lt * Influenza A/B, RSV, and COVID-19 PCR Nasopharyngeal (08/17/2024 3:22 PM CDT) COVID-19 RNA Negative Negative Influenza A RNA Negative Negative [facility] ([place]) Influenza B RNA Negative Negative [facility] ([place]) RSV RNA Negative Negative [facility] ([place]) Comment: Interpretive data: Testing performed by [facility]. This test is performed using the [employer] Xpert Xpress CoV-2/Flu/RSV plus assay. This is a multiplex, real- time reverse transcriptase PCR assay intended for the qualitative detection of nucleic acid from SARS-CoV-2, influenza A, influenza B, and respiratory syncytial virus. This assay has been cleared by the [place] Food and Drug administration. The performance characteristics have been verified by the [facility]. Results must be considered in the clinical context, and a negative result does not rule out infection. Interpretive Data last revised 2023 Nasopharyngeal 08/17/2024 3: 22 PM CDT 08/17/2024 3:27 PM CDT Narrative [facility]) - 08/17/2024 4:06 PM CDT Is the Patient experiencing symptoms consistent with COVID?->Yes Amanuel Rendon MD LAB MICROBIOLOGY - GENERAL O RDERABLES Final Result Performing Organization Address [facility] Co de Phone Number [facility] ([place]) [address] [place] [address] [place] [address] * eGFR (08/17/2024 3:22 PM CDT) eGFR >90 >=60 mL/min/1. 73 m2 Comment: Interpretive Data Reference Interval Normal >/= 90 mL/min/1.73m2 Mildly decreased* 60 - 89 mL/min/1.73m2 Mildly to moderately decreased 45 - 59 mL/min/1.73m2 Moderately to severely decreased 30 - 44 mL/min/1.73m2 Severely decreased 15 - 29 mL/min/1.73m2 Kidney Failure < 15 mL/min/1.73m2 *Relative to young adult level Estimated glomerular filtration rate is determined by the 2020 CKD-EPI equation recommended by the National Kidney Foundation (A Unifying Approach to GFR Estimation: Recommendations of the NKF-ASK Task Force on Reassessing the Inclusion of Race in Diagnosing Kidney Disease, JASN 2020). The CKD-EPI equation should not be used for patients with unstable renal function and has not been validated in children and those over 70. Current interpretive data was last reviewed 2021. Blood 08/17/2024 3:22 PM CDT 08/17/2024 3:27 PM CDT Amanuel Rendon MD LAB BLOOD ORDERABLES Final R esult Performing Organization Address City/[facility]/ZIP Co de Phone Number [facility] ([place]) 1 [facility] [place] [address] * Differential, auto (08/17/2024 3:22 PM CDT) Neutrophil abs 3.63 1.50 - 6.50 K/cumm Imm gran abs 0.02 0.00 - 0.10 K/cumm [facility] ([place]) Lymphocyte abs 2.43 0.80 - 3.30 K/cumm [facility] ([place]) Monocyte abs 0.53 0.20 - 0.80 K/cumm [facility] ([place]) Eosinophil abs 0.34 0.00 - 0.50 K/cumm [facility] ([place]) Basophil abs 0.05 0.00 - 0.10 K/cumm [facility] ([place]) Neutrophil pct 51.8 % [facility] ([place]) Comment: Interpretive Data Percent cell count reference ranges are not reported, since discordance with absolute values may lead to misinterpretation of CBC data. Current Interpretive Data was last revised on 2017. Imm gran pct 0.3 % [facility] ([place]) Comment: Interpretive Data Percent cell count reference ranges are not reported, since discordance with absolute values may lead to misinterpretation of CBC data. Current Interpretive Data was last revised on 2017. Lymphocyte pct 34.7 % [facility] ([place]) Comment: Interpretive Data Percent cell count reference ranges are not reported, since discordance with absolute values may lead to misinterpretation of CBC data. Current Interpretive Data was last revised on 2017. Monocyte pct 7.6 % [facility] ([place]) Comment: Interpretive Data Percent cell count reference ranges are not reported, since discordance with absolute values may lead to misinterpretation of CBC data. Current Interpretive Data was last revised on 2017. Eosinophil pct 4.9 % [facility] ([place]) Comment: Interpretive Data Percent cell count reference ranges are not reported, since discordance with absolute values may lead to misinterpretation of CBC data. Current Interpretive Data was last revised on 2017. Basophil pct 0.7 % [facility] ([place]) Comment: Interpretive Data Percent cell count reference ranges are not reported, since discordance with absolute values may lead to misinterpretation of CBC data. Current Interpretive Data was last revised on 2017. Blood 08/17/2024 3:22 PM CDT 08/17/2024 3:27 PM CDT Amanuel Rendon MD LAB BLOOD ORDERABLES Final R esult [facility] [place] 1 [facility] Department [place] [address] * Pro B-type natriuretic peptide (08/17/2024 3:22 PM CDT) NT-proBNP 78 <=300 pg/mL Comment: Interpretive Comments: A. Dyspnea in Acute Care Setting All Ages: < 300 pg/ml, acute heart failure unlikely. < 50 yrs: 300 - 450 pg/ml, further investigation warranted. > 450 pg/ml, acute heart failure likely. 50 - 74 yrs: 300 - 900 pg/ml, further investigation warranted. > 900 pg/ml, acute heart failure likely . > or = 75 yrs: 450 - 1800 pg/ml, further investigation warranted. > 1800 pg/ml, acute heart failure likely. B. Non-acute Setting < 75 yrs < 125 pg/ml, rules out heart failure. > or = 125 pg/ml, further investigation warranted. > or = 75 yrs < 450 pg/ml, rules out heart failure. > or = 450 pg/ml, further investigation warranted. - Knowledge of each individual patient's NT-proBNP range may be more useful than using similar cut-points for every patient. Please note that marked elevations in NT-proBNP levels may be observed in state other than Left Ventricular Congestive Failure, including: acute coronary syndromes, right heart strain/failure (including pulmonary embolism and cor pulmonale), critical illness, renal failure, as well as advanced age. - References: 1. Nicholas GARDNER et.al. Eur Heart J. 2006:27:330-337. 2. Juan RW, Brandan FISCHER. J. AM Genny Cardiol: Cardiovasc Imag. 2009;2: 216- 225. Interpretive Data Last Revised Date: 2017. Blood 08/17/2024 3:22 PM CDT 08/17/2024 9:47 PM CDT Amanuel Rendon MD LAB BLOOD ORDERABLES Final R esult [facility] ([place]) 1 [facility] [place] [address] * (ABNORMAL) CBC with auto differential (08/17/2024 3:22 PM CDT) [facility] WBC 7.00 3.80 - 9.90 K/cumm Hgb 16.6(H) 11.9 - 15.5 g/dL [facility] ([place]) Hct 51.1(H) 35.6 - 45.5 % [facility]) Plt 283 150 - 400 K/cumm [facility] ([place]) MPV 8.9(L) 9.1 - 12.3 fL [facility] ([place]) RBC 6.06(H) 3.90 - 5.20 M/cumm [facility] ([place]) MCV 84.3 81.3 - 96.4 fL [facility] ([place]) MCH 27.4 27.1 - 33.3 pg [facility] ([place]) MCHC 32.5 32.3 - 35.7 g/dL [facility] ([place]) RDW CV 14.5 11.1 - 14.9 % [facility] ([place]) RDW SD 43.5 35.7 - 48.1 fL [facility] ([place]) NRBC abs 0.00 0.00 - 0.01 K/cumm [facility] ([place]) Blood 08/17/2024 3:22 PM CDT 08/17/2024 3:27 PM CDT Amanuel Rendon MD LAB BLOOD ORDERABLES Final R esult [facility] ([place]) 1 [facility] [place] [address] * D-dimer, quantitative (08/17/2024 3:22 PM CDT) Pathologist [facility] D-Dimer 377 <=499 ng/mL FEU [facility] ([place]) Comment: Interpretive data FDA approved the D-dimer, in conjunction with a low or moderate pretest probability score, to exclude venous thromboembolic events (VTE) (PE and DVT) in outpatients when the D-dimer result is < 500 ng/ml FEU. Evidence supports using an age-adjusted D-dimer cut-off for outpatients older than 50 (age x 10) to improve specificity without sacrificing sensitivity. Example: age 68, VTE cut-off 680 ng/ml FEU. References; Schduglas HT et al. Brit Med J. 2013;346:f2492. bAbi et al. Annals Int Med. 2015;163:701-11. Current interpretive data was last revised on 2019. Blood 08/17/2024 3:22 PM CDT 08/17/2024 9:47 PM CDT Amanuel Rendon MD LAB BLOOD ORDERABLES Final R esult Performing Organization Address City/[facility]/ZIP Co de Phone Number [facility] 1 [facility] [employer] [place] [address] * (ABNORMAL) CRP (acute phase) (08/17/2024 3:22 PM CDT) CRP 23.4(H) <=10.0 mg/L Blood 08/17/2024 3:22 PM CDT 08/17/2024 9:48 PM CDT Amanuel Rendon MD LAB BLOOD ORDERABLES Final R esult [facility] 1 [facility] [place] [address] * Comprehensive metabolic panel (08/17/2024 3:22 PM CDT) Sodium 141 135 - 145 mmol/L Potassium, pl 4.5 3.3 - 4.9 mmol/L [facility] ([place]) Chloride 102 97 - 110 mmol/L [facility] ([place]) CO2 27 22 - 32 mmol/L [facility] ([place]) Anion gap 13 2 - 15 mmol/L [facility] ([place]) BUN 12 6 - 25 mg/dL [facility] ([place]) Creatinine 0.66 0.60 - 1.10 mg/dL [facility]) Glucose 100 70 - 199 mg/dL [facility] ([place]) Comment: Interpretive Data Fasting glucose >/= 126 mg/dl is diagnostic for diabetes. Fasting is defined as no caloric intake for at least 8 hours. Fasting glucose between 100 mg/dl to 125 mg/dl is diagnostic of prediabetes. In a patient with classic symptoms of hyperglycemia or hyperglycemic crisis, a random glucose >/= 200 mg/dl is diagnostic for diabetes. In the absence of unequivocal hyperglycemia, results should be confirmed by repeat testing. The classification and Diagnosis of Diabetes Diabetes Care 2021; 46: S19-S40. Current interpretive data was last revised 2022. Calcium 9.6 8.5 - 10.3 mg/dL [facility] ([place]) Bilirubin, total 0.5 0.1 - 1.2 mg/dL [facility] ([place]) Protein, pl 8.4 6.5 - 8.5 g/dL [facility] ([place]) Albumin 4.1 3.5 - 5.0 g/dL [facility] ([place]) Alk phos 101 40 - 130 Units/L [facility]) ALT 20 7 - 45 Units/L [facility]) AST 29 10 - 45 Units/L [facility] ([place]) Comment: Hemolysis present. Results may be affected. Slightly Hemolyzed Specimen Blood 08/17/2024 3:22 PM CDT 08/17/2024 3:27 PM CDT Amanuel Rendon MD LAB BLOOD ORDERABLES Final R esult [facility] ([place]) 1 [facility] Department of Laboratories [place], [place] [id number] * Stool DNA - Cologuard (07/14/2019) Scribed Stool DNA - Cologuard Negative [facility] Stool 07/14/2019 us Sanijv Conte MD LAB BODY FLUIDS AND STOOLS O RDERABLES Final Result [facility] * Diagnostic Mammogram Bilateral W Wilmer (08/06/2016 7:29 PM CDT) Anatomical Region Laterality Modality Breast Bilateral Mammography 08/06/2016 7:29 PM CDT Narrative 08/06/2016 7:29 PM CDT SCREENING MAMM W WILMER BI Acc#: [id number] DATE OF EXAM: Aug 06 2016 CLINICAL HISTORY: Screening. Performed by: [facility] RESULT: Craniocaudal and mediolateral oblique views to include tomosynthesis demonstrate breasts composed of scattered fibroglandular densities. No dominant mass, skin thickening, nipple retraction or suspicious cluster of microcalcifications is seen. Digital technology was employed plus computer-aided detection software (R2) was utilized in interpretation of these images. This facility utilizes a reminder system to notify patients of yearly mammograms. IMPRESSION: 1. NO FINDINGS SUSPICIOUS FOR MALIGNANCY. 2. NO SIGNIFICANT CHANGE SINCE 10/01/12 OR 11/13/10. 3. RECOMMEND RESCREENING IN ONE YEAR. BI-RADS 1 - NEGATIVE EXAM Interpreting Physician: DR SHANNA RHODES M.D. Read on: Aug 06 2016 2:29P Transcribed by: [facility] On: Aug 06 2016 4:05P Approved Electronically by: CARMELO Lovett, DR OTERO on: Aug 06 2016 7:55P Attending: DR SANJIV CONTE Requesting: DR SANJIV CONTE Requesting Attending Attending ID: [id number] Requesting ID: [id number] Report To 1 ID: [id number] Report To 1 Name: DR SANJIV CONTE Report To 1 FAX: [phone] NextGen Order #: Procedure Note Miscellaneous, Notinfile / Provider, MD Richard - 10/02/2016 SCREENING MAMM W WILMER BI Acc#: [id number] DATE OF EXAM: Aug 06 2016 CLINICAL HISTORY: Screening. Performed by: [facility] RESULT: Craniocaudal and mediolateral oblique views to include tomosynthesisdemonstrate breasts composed of scattered fibroglandular densities. Nodominant mass, skin thickening, nipple retraction or suspicious cluster ofmicrocalcifications is seen. Digital technology was employed pluscomputer-aided detection software (R2) was utilized in interpretation ofthese images. This facility utilizes a reminder system to notify patientsof yearly mammograms. IMPRESSION: 1. NO FINDINGS SUSPICIOUS FOR MALIGNANCY. 2. NO SIGNIFICANT CHANGE SINCE 10/01/12 OR 11/13/10. 3. RECOMMEND RESCREENING IN ONE YEAR. BI-RADS 1 - NEGATIVE EXAM Interpreting Physician: DR SHANNA RHODES M.D. Read on: Aug 06 20162:29P Transcribed by: [facility] On: Aug 06 2016 4:05P Approved Electronically by: CARMELO Lovett, DR OTERO on: Aug 06 20167:55P Attending: DR SANJIV CONTE Requesting: DR SANJIV CONTE Requesting Attending Attending ID: [id number] Requesting ID: [id number] Report To 1 ID: [id number] Report To 1 Name: DR SANJIV CONTE Report To 1 FAX: [phone] NextGen Order #: us Not In File Miscellaneous IMG MAMMO PROCEDURES F inal Result * DEXA SCAN (10/02/2011) DEXA Scan Normal us Historical Provider HEALTH MAINTENANCE Final Result from Last 3 Months or Most Recently Relevant to Health Maintenance Insurance MEDICARE MEDICARE MEDICARE 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
--- OUTSIDE RECORDS SUMMARY | 2024-10-26 11:46 | XMS_ITS | Clinical Summary ---
Author Organization [facility] Address [address] [place] [id number] Care Team Providers Care Armature Tester Name Role Phone DanayMagali schwab JOSÉ Primary Care Provider Allergies Active Allergy Reactions Criticality Noted Date [...] for wheezing. I discussed patient seeing an caddie, but her sister would like to just do the labs instead of having to go to a specialist visit. 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 Patient is aware of long-term risks posed by chronic hydronephrosis and hydroureter. Check metabolic panel next week for renal function. Leukocytosis 05/09/2020 Assessment & Plan (05/09/2020 5:00 PM FLIGHT LINE MECHANIC): Repeat CBC next week to ensure normalization [...] fall prevention, proper nutrition, and suggested joining [facility] to accomplish most of these goals. [...] loss. Assessment & Plan (05/09/2020 5:00 PM FLIGHT LINE MECHANIC): Remains well controlled at home and there [...] normal. Adiposity 09/25/2013 12/31/2016 Overview (08/15/2016): Obesity Encounters Date Type Department Care Team Description 09/21/2024 10:30 AM CDT Office Visit [facility] Primary Care at [address] [phone] Magali Jon NP Wheezing (Primary Dx); Class 3 severe obesity due to excess calories with serious comorbidity and body mass index (BMI) of 50.0 to 59.9 in adult; Benign hypertension; Mixed hyperlipidemia; Vitamin D deficiency; Subclinical hypothyroidism; Prediabetes; Screening for diabetes mellitus; Need for hepatitis B screening test; Encounter for hepatitis C screening test for low risk patient; Colon cancer screening 09/21/2024 Telephone [facility] Primary Care at [address] [place] [phone] Magali Jon NP Recommendation Request; Medical Question/Miscellaneous 08/17/2024 8:54 PM CDT - 08/17/2024 11:57 PM CDT Emergency [facility] Emergency Department [address] [place] [address] Amanuel Rendon MD Hypertensive urgency (Primary Dx); Subacute maxillary sinusitis; Wheezing Discharge Disposition: Discharge to home or self care from Last 3 Months Immunizations Immunization Administration Dates Next Due Influenza, Unspecified 05/09/2020(Deferr ed: Patient Refused),03/22/2020(Deferred: Patient Refused),03/16/2020(Deferred: Patient Refused),02/09/2019(Deferred: Patient Refused),02/09/2019(Deferred: Patient Refused),02/09/2019(Deferred: Patient Refused),01/21/2019(Deferred: Patient Refused),02/09/2018(Deferred: Patient Refused) Tdap 10/22/2023,08/10/2010 Surgical History Surgery Date Site/Laterality Comments UMBILICAL HERNIA REPAIR 1999 Hernia repair, umbilical OTHER SURGICAL HISTORY microscopic hematuria: Dr Stock,neg cysto/ct urogram APPENDECTOMY Appendectomy OTHER SURGICAL HISTORY PUD with perf gastic ulcer and surgical repair: Dr Ahuja, Dr Hurt OTHER SURGICAL HISTORY 2000 Fibroid tumor, benign: Hysterectomy and B LAURENT Medical History Medical History Date Comments Calculus of kidney nephrolithias is Hx Other Medical microscopic hem aturia Hx Other Medical Cholelithiasis CT 04/18 Hx Other Medical PUD with perf g astic ulcer and surgical repair Hx Other Medical Fibroid tumor, benign Hypertension Peptic ulceration Family History Medical History Relation Name Comments Colon cancer Father Cancer, colon; Hypertension Father Hypertension; Prostate cancer Father Stroke Father Stroke; Diabetes Mother Diabetes mellit [place]; Heart attack Mother [place]; Hypertension Mother Hypertension; Relation Name Status Comments Father Mother Alive Social History Tobacco Use Types Packs/Day Years [...] on file Legal Sex Female 2:38 PM FLIGHT LINE MECHANIC Gender Identity Not on file Sexual Orientation Not on file Obstetrics History Last Filed Vital Signs Vital Sign Reading [...] 09/21/2024 10:37 AM CDT Plan of Treatment Health Maintenance Due Date Last Done Comments Hepatitis C Screening 1958 Hepatitis B Screening 1976 Pneumococcal vaccine 65+ (1 of 1 - PCV) 2008 Zoster Vaccine (1 of 2) 2008 Colon Cancer Screening-DNA Stool 07/13/2022 07/14/2019, 12/25/2015, 12/25/2015, Additional history exists Well Visit 65+ 2023 01/24/2020, 01/10, 01/01/2018, Additional history exists Influenza Vaccine (Season Ended) 2025 Breast Cancer Screening-Mammogram 06/29/2025 08/06/2016, 10/01/2012 Postponed from 08/06/2017 (Patient declined, but will receive in the future) Depression Screening 09/21/2025 09/21/2024, 09/21/2024, 05/09/2020, Additional history exists Fall Risk Assessment 09/21/2025 09/21/2024, 05/09/2020, 03/22/2020, Additional history exists Osteoporosis Screening-Bone Density Scan 09/22/2025 10/02/2011, 10/02/2011 Postponed from 10/01/2013 (Patient declined, but will receive in the future) DTaP/Tdap/Td Vaccine (3 - Td or Tdap) 10/21/2033 10/22/2023, 08/10/2010 Procedures Procedure Name Priority Date/Time Associated Diagnosis Comments MS CRITICAL CARE ILL/INJURED PATIENT INIT 30-74 MIN [...] Recently Relevant to Health Maintenance Results * MS CRITICAL CARE ILL/INJURED PATIENT INIT 30-74 MIN [...] PO2, Venous 63 mmHg [facility] ([place]) HCO3 Venous, Calculated 30 20 - 30 mmol/L [facility] ([place]) BE, venous 4 mmol/L [facility] ([place]) Comment: Interpretive Data No Reference Range Established Current Interpretive Data was last revised on 2017. Blood 08/17/2024 9:59 PM CDT 08/17/2024 10:11 PM CDT Amanuel Rendon MD LAB BLOOD ORDERABLES Final R esult [facility] ([place]) 1 [facility] Department [place] [address] * XR Chest 1 Vw Portable (08/17/2024 [...] Nicholas Amos M.D. CH: MELA Report ID: [id number] Reading Location: [place] [address] Procedure Note Nicholas Amos Jr., MD - [...] by Nicholas Amos M.D. CH: Report ID: [id number] Reading Location: [place] [address] Amanuel Rendon MD IMG XR PROCEDURES Final Resu lt * Influenza A/B, RSV, and COVID-19 PCR Nasopharyngeal (08/17/2024 3:22 PM CDT) COVID-19 RNA Negative Negative Influenza A RNA Negative Negative [facility] ([place]) Influenza B RNA Negative Negative [facility]) RSV RNA Negative Negative [facility] ([place]) Comment: Interpretive data: Testing performed by [facility]. This test is performed using the [employer] Xpert Xpress CoV-2/Flu/RSV plus assay. This is a multiplex, real- time reverse transcriptase PCR assay intended for the qualitative detection of nucleic acid from SARS-CoV-2, influenza A, influenza B, and respiratory syncytial virus. This assay has been cleared by the [place] Food and Drug administration. The performance characteristics have been verified by the [facility]. Results must be considered in the clinical context, and a negative result does not rule out infection. Interpretive Data last revised 2023 Nasopharyngeal 08/17/2024 3: 22 PM CDT 08/17/2024 3:27 PM CDT Narrative [facility] ([place]) - 08/17/2024 4:06 PM CDT Is the Patient experiencing symptoms consistent with COVID?->Yes Amanuel Rendon MD LAB MICROBIOLOGY - GENERAL O RDERABLES Final Result Performing Organization Address City/[facility]/ZIP Co de Phone Number [facility] ([place]) 1 [facility] [place] [address] * eGFR (08/17/2024 3:22 PM CDT) eGFR [...] ORDERABLES Final R esult Performing Organization Address City/[facility]/ZIP Co de Phone Number [facility] ([place]) 1 [facility] [place] [address] * Differential, auto (08/17/2024 3:22 PM CDT) [...] ORDERABLES Final R esult Performing Organization Address City/[facility] Co de Phone Number [facility] ([place]) 1 [facility] [employer] [address] * Pro B-type natriuretic peptide (08/17/2024 3:22 [...] ORDERABLES Final R esult Performing Organization Address City/[facility]/ZIP Co de Phone Number [facility] ([place]) 1 [facility] [place] [address] * (ABNORMAL) CBC with auto differential (08/17/2024 3:22 PM CDT) [facility] WBC 7.00 3.80 - 9.90 K/cumm Hgb 16.6(H) 11.9 - 15.5 g/dL [facility] Hct 51.1(H) 35.6 - 45.5 % [facility] ([place]) Plt 283 150 - 400 K/cumm [facility] ([place]) MPV 8.9(L) 9.1 - 12.3 fL [facility] ([place]) RBC 6.06(H) 3.90 - 5.20 M/cumm [facility] ([place]) MCV 84.3 81.3 - 96.4 fL [facility] MCH 27.4 27.1 - 33.3 pg [facility] ([place]) MCHC 32.5 32.3 - 35.7 g/dL [facility] ([place]) RDW CV 14.5 11.1 - 14.9 % [facility] ([place]) RDW SD 43.5 35.7 - 48.1 fL [facility] NRBC abs 0.00 0.00 - 0.01 K/cumm [facility] Blood 08/17/2024 3:22 PM CDT 08/17/2024 3:27 PM CDT Amanuel Rendon MD LAB BLOOD ORDERABLES Final R esult [facility] 1 [facility] [place] [address] * D-dimer, quantitative (08/17/2024 3:22 PM CDT) [facility] D-Dimer 377 <=499 ng/mL FEU [facility] Comment: Interpretive data FDA approved [...] 66, VTE cut-off 680 ng/ml FEU. References; Carlota HT et al. Brit Med J. 2013;346:f2492. Abbi et al. Annals Int Med. 2015;163:701-11. Current interpretive data was last revised on 2019. Blood 08/17/2024 3:22 PM CDT 08/17/2024 9:47 PM CDT Amanuel Rendon MD LAB BLOOD ORDERABLES Final R esult Performing Organization Address City/[facility]/ZIP Co de Phone Number [facility] ([place]) 1 [facility] [place] [address] * (ABNORMAL) CRP (acute phase) (08/17/2024 3:22 PM CDT) CRP 23.4(H) <=10.0 mg/L Blood 08/17/2024 3:22 PM CDT 08/17/2024 9:48 PM CDT Amanuel Rendon MD LAB BLOOD ORDERABLES Final R esult [facility] ([place]) 1 [facility] [place] [address] * Comprehensive metabolic panel (08/17/2024 3:22 PM CDT) Sodium 141 135 - 145 mmol/L Potassium, pl 4.5 3.3 - 4.9 mmol/L [facility] ([place]) Chloride 102 97 - 110 mmol/L [facility] ([place]) CO2 27 22 - 32 mmol/L [facility] ([place]) Anion gap 13 2 - 15 mmol/L [facility] BUN 12 6 - 25 mg/dL [facility] Creatinine 0.66 0.60 - 1.10 [...] MD LAB BLOOD ORDERABLES Final R esult [facility] 1 [facility] Department of Laboratories [place], [place] [id number] * Stool DNA - Cologuard (07/14/2019) Scribed Stool DNA - Cologuard Negative [facility] Stool 07/14/2019 Sanjiv Conte MD LAB BODY FLUIDS AND STOOLS O RDERABLES Final Result [facility] * Diagnostic Mammogram Bilateral W Wilmer (08/06/2016 7:29 PM CDT) Anatomical Region Laterality Modality Breast Bilateral Mammography 08/06/2016 7:29 PM CDT Narrative 08/06/2016 7:29 PM CDT SCREENING MAMM W WILMER BI Acc#: [id number] DATE OF EXAM: Aug 06 2016 CLINICAL HISTORY: Screening. Performed by: [facility] RESULT: Craniocaudal and mediolateral oblique views [...] - NEGATIVE EXAM Interpreting Physician: DR SHANNA HRODES M.D. Read on: Aug 06 2016 2:29P Transcribed by: [facility] On: Aug 06 2016 4:05P Approved Electronically by: CARMELO Lovett, DR HURT on: Aug 06 2016 7:55P Attending: DR SANJIV CONTE Requesting: DR SANJIV CONTE Requesting Attending Attending ID: [id number] Requesting ID: [id number] Report To 1 ID: [id number] Report To 1 Name: DR SANJIV CONTE Report To 1 FAX: [phone] NextGen Order #: Procedure Note Miscellaneous, Notinfile / Provider, MD Richard - 10/02/2016 SCREENING MAMM W WILMER BI Acc#: [id number] DATE OF EXAM: Aug 06 2016 CLINICAL HISTORY: Screening. Performed by: [facility] RESULT: Craniocaudal and mediolateral oblique views [...] Read on: Aug 06 20162:29P Transcribed by: [facility] On: Aug 06 2016 4:05P Approved Electronically by: DR SHANNA RHODES M.D. on: Aug 06 20167:55P Attending: DR SANJIV CONTE Requesting: DR SANJIV CONTE Requesting Attending Attending ID: [id number] Requesting ID: [id number] Report To 1 ID: [id number] Report To 1 Name: DR SANJIV CONTE Report To 1 FAX: [phone] NextGen Order #: us Not In File Miscellaneous IMG MAMMO PROCEDURES F inal Result * DEXA SCAN (10/02/2011) DEXA Scan Normal us Historical Provider HEALTH MAINTENANCE Final Result from Last 3 Months or Most Recently Relevant to Health Maintenance Insurance MEDICARE MEDICARE MEDICARE Care Teams Armature Tester Relationship Specialty Start Date End Date Magali Jon NP [address] [facility] [address] [place] [address] PCP - General Nurse Practitioner 09/21/24
[2024-10-26] MEDS: IPRATROPIUM 0.5 MG/ALBUTEROL SULFATE 2.5 MG AMPUL.NEB 3 ML INHALATION ×3 (11:51→20:10)
[2024-10-26 12:00] LABS: Alveolar/Arterial O2 Gradient 89.6 mmHg; Base Excess ABG 6.7 mEq/l (+/-2.0); Device NASAL CANNULA; Fractional Inspired Oxygen 32 %; HCO3 ABG 33.7 mEq/l (22.0-26.0); Modified Allen's Test Pass; Oxygen Content ABG 22.2 %vol (16.0-22.0); Oxygen Saturation ABG 94.3 % (95.0-100.0); Oxyhemoglobin 93.1 % THb (90.0-100.0); PCO2 ABG 56.3 mmHg (35.0-45.0); PO2 ABG 72.7 mmHg (80.0-100.0); PO2 FiO2 Ratio Arterial Blood 2.27 %; Site Drawn RIGHT RADIAL; pH ABG 7.395 (7.350-7.450)
[2024-10-26 12:05] LABS: Add Urine Microscopic? YES; Appearance Urine Clear (Clear); Bacteria Urine None Seen /hpf; Bilirubin Urine Negative (Negative); Blood Urine Negative (Negative); Color Urine Yellow (Yellow); Glucose Urine UA Negative (Negative); Ketones Urine Trace mg/dL (Negative); Leukocyte Esterase Ur Negative LEU/UL (Negative); Nitrate Urine Negative (Negative); Non Pathogenic Casts 0-2; Protein Urine 2+ mg/dL (Negative); RBC Urine 0-2 /hpf (0-2); Specific Grav Ur 1.005 (1.001-1.035); Squamous Epithelial Cell Urine None Seen /hpf (Few); Urobilinogen Urine 0.2 mg/dL (<2.0); WBC Urine 0-5 /hpf (0-3)
[2024-10-26] MEDS: methylPREDNISolone SOD SUCC 125 MG VIAL IV PUSH (12:13)
[2024-10-26 12:17] LABS: Basophils Absolute Auto 0.1 K/mm3 (0.0-0.1); Basophils Percent Auto 0.5 % (0.2-1.2); Eosinophils Absolute Auto 0.2 K/mm3 (0-0.3); Eosinophils Percent Auto 1.6 % (0-4.4); Hematocrit 51.7 % (37.0-47.0); Hemoglobin 15.9 g/dL (12.0-15.0); Immature Granulocyte Absolute 0.04 K/mm3 (0.00-0.031); Immature Granulocyte Percent A 0.3 % (0-0.5); Lymphocytes Absolute Auto 1.89 K/mm3 (0.9-3.2); Lymphocytes Percent Auto 15.6 % (18.3-44.2); Mean Corpuscular HGB Conc 30.8 g/dl (32-36); Mean Corpuscular Volume 84.5 fl (80-100); Mean Platelet Volume 8.6 fl (7.4-10.4); Monocytes Absolute Auto 0.7 K/mm3 (0.1-0.6); Monocytes Percent Auto 5.7 % (2.6-8.5); Neutrophils Absolute Auto 9.3 K/mm3 (1.3-6.7); Neutrophils Percent Auto 76.3 % (45.5-73.1); Platelet Count Result 368 k/mm3 (150-375); Red Blood Count 6.12 M/mm3 (4.2-5.4); Red Cell Distribution Width 14.3 % (11.5-14.5); White Blood Count 12.2 K/mm3 (4.5-10.0)
[2024-10-26 12:20] LABS: Influenza A QL RT-PCR Negative (Negative); Influenza B QL RT-PCR Negative (Negative); RSV RNA, RT-PCR Negative (Negative); SARS-CoV-2 RNA PCR Negative (Negative)
--- NOTE | 2024-10-26 12:21 | ED.GENADULT ---
HPI - General Adult General Chief complaint: Shortness of Breath/Dyspnea Stated complaint: sob Time Seen by Provider: 10/26/24 10:55 History of Present Illness HPI narrative: Patient is a 64-year-old female presents emergency department with chief complaint of shortness of breath. Patient reports that for the last couple months she has been having issues with shortness of breath particularly with laying down exertion patient reports he has had a productive cough reports she was seen at [facility] then diagnosed with bronchitis the patient states that she had allergy testing that was negative reports been treated with a round of doxycycline patient states that she has no history of COPD Related Data Allergies Allergy/AdvReac Type Severity Reaction Status Date / Time No Known Allergies Allergy Verified 10/26/24 11:11 Review of Systems Review of Systems: A 10 system review of systems was completed on the patient and is negative except for what is stated in the HPI. Nursing and ancillary documentation was reviewed. PMFSH Past Medical History Medical History Hypertension Maxillary sinus polyp Surgical History Surgical History H/O: hysterectomy History of appendectomy Family History Family History Other Hypertension Social History Social History Smoking status: Never smoker Alcohol intake: never Exam Narrative: GENERAL: Well-appearing, well-nourished, and in no acute distress. HEAD: Normocephalic, atraumatic. EYES: PERRLA and EOMI. ENT: Nares clear, no rhinorrhea or epistaxis. Mucous membranes moist. NECK: Supple. CHEST: Coarse breath sounds to auscultation. No respiratory distress. HEART: Regular rate and rhythm. No murmur heard. Normal peripheral pulses. ABDOMEN: Soft, nontender, nondistended, normal active bowel sounds. EXTREMITIES: Normal range of motion. No edema. SKIN: Warm, dry, no rash. NEURO: No focal deficits. Alert and oriented x3. PSYCH: Normal mood and affect. Course Vital Signs Vital signs: Vital Signs Temperature 36.4 C L 10/26/24 11:07 Pulse Rate 115 H 10/26/24 11:07 Respiratory Rate 28 H 10/26/24 11:07 Blood Pressure 197/129 H 10/26/24 11:07 Pulse Oximetry 80 L 10/26/24 11:07 Oxygen Delivery Room Air 10/26/24 11:07 Temperature 36.4 C L 10/26/24 11:07 Pulse Rate 112 H 10/26/24 12:04 Respiratory Rate 23 H 10/26/24 12:04 Blood Pressure 197/129 H 10/26/24 11:07 Pulse Oximetry 100 10/26/24 12:00 Oxygen Delivery Nasal Cannula 10/26/24 11:12 Oxygen Flow Rate 4 10/26/24 11:12 Medical Decision Making Vital Signs Vital Signs: Vital Signs Temperature 36.4 C L 10/26/24 11:07 Pulse Rate 115 H 10/26/24 11:07 Respiratory Rate 28 H 10/26/24 11:07 Blood Pressure 197/129 H 10/26/24 11:07 Pulse Oximetry 80 L 10/26/24 11:07 Oxygen Delivery Room Air 10/26/24 11:07 Temperature 36.4 C L 10/26/24 11:07 Pulse Rate 112 H 10/26/24 12:04 Respiratory Rate 23 H 10/26/24 12:04 Blood Pressure 197/129 H 10/26/24 11:07 Pulse Oximetry 100 10/26/24 12:00 Oxygen Delivery Nasal Cannula 10/26/24 11:12 Oxygen Flow Rate 4 10/26/24 11:12 Lab Data 10/26/24 12:11 10/26/24 12:11 Labs: Lab Results 10/26/24 10/26/24 Range/Units 11:32 12:11 WBC 12.2 H (4.5-10.0) K/mm3 RBC 6.12 H (4.2-5.4) M/mm3 Hgb 15.9 H (12.0-15.0) g/dL Hct 51.7 H (37.0-47.0) % MCV 84.5 (80-100) fl MCH 26.0 (26-34) pg MCHC 30.8 L (32-36) g/dl RDW 14.3 (11.5-14.5) % Plt Count 368 (150-375) k/mm3 MPV 8.6 (7.4-10.4) fl Immature Gran % (Auto) 0.3 (0-0.5) % Neut % (Auto) 76.3 H (45.5-73.1) % Lymph % (Auto) 15.6 L (18.3-44.2) % [place] % (Auto) 5.7 (2.6-8.5) % Eos % (Auto) 1.6 (0-4.4) % Baso % (Auto) 0.5 (0.2-1.2) % Lymph # (Auto) 1.89 (0.9-3.2) K/mm3 [place] # (Auto) 0.7 H (0.1-0.6) K/mm3 Eos # (Auto) 0.2 (0-0.3) K/mm3 Baso # (Auto) 0.1 (0.0-0.1) K/mm3 Abs Immat Gran (auto) 0.04 H (0.00-0.031) K/mm3 Absolute Neuts (auto) 9.3 H (1.3-6.7) K/mm3 Absolute Nucleated RBC 0.000 (0.0-0.012) K/mm3 Nucleated RBC % 0.0 (0.0-0.2) % PT 14.8 H (11.1-14.7) Seconds INR 1.1 APTT 31.2 (22.3-36.8) Seconds Sodium 138 (137-145) mmol/L Potassium 4.3 (3.4-5.0) mmol/L Chloride 99 (98-107) mmol/L Carbon Dioxide 30 (22-30) mmol/L Anion Gap 9 (4-12) mmol/L BUN 10 (7-17) mg/dL Creatinine 0.62 L (0.7-1.0) mg/dL Estim Creat Clear Calc Not Reportable Estimated GFR > 60 (59 - ) Glucose 122 H (65-110) mg/dL Lactic Acid 0.9 (0.7-2.0) mmol/L Calcium 9.1 (8.4-10.2) mg/dL Magnesium 1.9 (1.6-2.3) mg/dL Total Bilirubin 0.8 (0.2-1.3) mg/dL AST 29 (14-36) U/L ALT 21 (6-35) U/L Alkaline Phosphatase 105 (38-126) U/L Troponin I < 0.012 (0.000-0.034) ng/mL NT-Pro-B Natriuret Pep 462 H (19.9-100) pg/mL Total Protein 8.7 H (6.3-8.2) g/dL Albumin 4.2 (3.5-5.1) g/dL Procalcitonin 0.1 ng/mL Urine Color Yellow (Yellow) Urine Appearance Clear (Clear) Urine pH 7.0 (5.0-9.0) Ur Specific [place] 1.005 (1.001-1.035) Urine Protein 2+ H (Negative) mg/dL Urine Glucose (UA) Negative (Negative) mg/dL Urine Ketones Trace H (Negative) mg/dL Ur Blood (Man) Negative (Negative) Urine Nitrate Negative (Negative) Urine Bilirubin Negative (Negative) Urine Urobilinogen 0.2 (<2.0) mg/dL Leukocyte Esterase Rfl Negative (Negative) ANTOINETTE/UL Urine RBC 0-2 (0-2) /hpf Urine WBC 0-5 (0-3) /hpf Ur Squamous Epith Cells None seen (Few) /hpf Urine Bacteria None seen /hpf Urine Casts 0-2 Influenza A (RT-PCR) Negative (Negative) Influenza B (RT-PCR) Negative (Negative) RSV (RT-PCR) Negative (Negative) SARS-CoV-2 RNA (RT-PCR) Negative (Negative) ABG Data ABG results: 10/26/24 11:49 Puncture Site Right radial ABG pH 7.395 ABG pCO2 56.3 H ABG pO2 72.7 L ABG PO2/FiO2 Ratio 2.27 ABG HCO3 33.7 H ABG O2 Saturation 94.3 L ABG O2 Content 22.2 H ABG Base Excess 6.7 A-a Gradient 89.6 Oxyhemoglobin 93.1 Total Hemoglobin 17.0 O2 Delivery Device Nasal cannula O2 Liters/Min 3.0 FiO2 32 Discharge Plan Discharge Clinical Impression: Acute hypoxemic respiratory failure, Community acquired pneumonia Patient Disposition: Still a Patient Condition: Stable Patient Language: [place] Prescriptions: No Action amoxicillin-pot clavulanate 875-125 mg tablet 1 tablet PO Q12H Qty: 14 0RF lisinopril 20 mg tablet 20 mg PO DAILY Qty: 30 0RF hydrochlorothiazide 25 mg tablet 25 mg PO DAILY Qty: 90 0RF Patient Comments: patient has not had any medication since June atorvastatin 40 mg tablet 40 mg PO DAILY Qty: 90 0RF Patient Comments: patient has not had any medication since June metformin 500 mg tablet 500 mg PO BID Qty: 60 3RF Patient Comments: patient has not had any medication since June Follow-up/Referrals: PHYSICIAN,AFFIRMATIVE ACTION SPECIALIST [Primary Care Provider] - Time of Disposition: 13:08
[2024-10-26 12:28] LABS: INR 1.1; Prothrombin Time 14.8 Seconds (11.1-14.7)
[2024-10-26 12:29] LABS: Alanine Aminotransferase 21 U/L (6-35); Albumin Level 4.2 g/dL (3.5-5.1); Alkaline Phosphatase 105 U/L (38-126); Anion Gap 9 mmol/L (4-12); Aspartate Amino Transferase 29 U/L (14-36); Bilirubin,Total 0.8 mg/dL (0.2-1.3); Blood Urea Nitrogen 10 mg/dL (7-17); Calcium 9.1 mg/dL (8.4-10.2); Carbon Dioxide 30 mmol/L (22-30); Chloride 99 mmol/L (98-107); Estimated Glomerular Filt Rate > 60; Glucose 122 mg/dL (65-110); Magnesium 1.9 mg/dL (1.6-2.3); Partial Thromboplastin Time 31.2 Seconds (22.3-36.8); Potassium 4.3 mmol/L (3.4-5.0); Sodium 138 mmol/L (137-145); Total Protein 8.7 g/dL (6.3-8.2)
[2024-10-26 12:30] LABS: Lactic Acid Reflex 0.9 mmol/L (0.7-2.0)
[2024-10-26 12:41] LABS: NT Pro B Type Natriuretic Pept 462 pg/mL (19.9-100); Troponin I < 0.012 ng/mL (0.000-0.034)
[2024-10-26 12:53] LABS: Procalcitonin 0.1 ng/mL
--- NOTE | 2024-10-26 13:08 | PM.IMHP ---
H&P: HPI History of Present Illness Date/Time: 10/26/24 13:08 Chief Complaint: Shortness of Breath Narrative: 64 y/o F with PMH of HTN presents here with shortness of breath. The patient presents here from home on 10/26 for further evaluation of shortness of breath. She reports onset of shortness of breath since August. Has been worse in the last 2 weeks. She reports the shortness of breath worsens with exertion/movement and seemed to approve with rest. SOB is accompanied by a productive cough (white/yellow/green sputum), wheezing, and fever. She was previously evaluated at [facility] and was dx with bronchitis/upper respiratory infection. She was placed on a course of doxycycline which she completed in September without improvement in her symptoms. She denies history of smoking, asthma, or COPD. She has been around multiple contacts over the last few months - whooping cough and norovirus were listed specifically but nothing within the last 2 weeks. Initial VS at presentation: 97.5? F, HR 115, RR 28, 197/129, and 80% on room air. Now 100% on 4L nasal cannula. ED workup showed: WBC 12 2, hemoglobin 15.9, INR 1.1, ABG showed CO2 56.3/O2 72.7/HC03 33.7/O2 sat 94.3% on 3L, creatinine 0.62 and GFR >60, lactic 0.9, initial troponin negative, BNP normal for age at 89, procalcitonin 0.1, and UA showed 2+ protein/trace ketones otherwise unremarkable. Viral PCR negative. CXR showed prominent bronchovascular markings in the will lower lobes which may indicate atelectasis versus pneumonia. EKG showed sinus tachycardia, rate 112, LVH previous ST-T change, consider anterior infarct age indeterminate, consider inferior infarct age indeterminate, baseline artifact. When compared to previous EKG, heart rate has increased. Review of Systems Review of Systems: All systems reviewed & are unremarkable except as noted in HPI and below [facility] Past Medical History Medical History Hypertension Maxillary sinus polyp Surgical History Surgical History H/O: hysterectomy History of appendectomy Family History Family History Other Hypertension Social History Social History Smoking status: Never smoker Alcohol intake: never Substance use: never Do You Feel Safe in your Home?: Yes Lack of Transportation: No Lack of Food: Never True Current Housing: I Have Housing Concerned About Future Housing: No Difficulty Paying Gas/Electric Bills: No Difficulty Paying for Meds: No Currently Unemployed: No Education: High School Diploma/GED Difficulty w/ Childcare or Family Care: No Spiritual care concerns: No Meds Home Medications and Allergies Home Medications ?Medication ?Instructions ?Recorded ?Confirmed ?Type lisinopril 20 mg tablet 10 mg PO DAILY 10/26/24 10/26/24 History Allergies Allergy/AdvReac Type Severity Reaction Status Date / Time No Known Allergies Allergy Verified 10/26/24 15:55 Vital Signs Vital Signs - 24 hr 10/26/24 11:07 10/26/24 11:12 10/26/24 11:38 Temperature 97.5 F L Pulse Rate 115 H 116 H Respiratory Rate 28 H 30 H Blood Pressure 197/129 H Pulse Oximetry 80 L 97 97 Oxygen Delivery Room Air Nasal Cannula Oxygen Flow Rate 4 10/26/24 11:52 10/26/24 12:00 10/26/24 12:04 Temperature Pulse Rate 112 H 112 H 112 H Respiratory Rate 20 24 H 23 H Blood Pressure Pulse Oximetry 100 Oxygen Delivery Oxygen Flow Rate Exam Const: General: comfortable and no acute distress Other: , female, obese body habitus HENMT: Face/Nose/Sinus: Normal nares present Mouth: Yes moist mucous membranes Eyes: General: appearance normal, both eyes and all related structures Sclera: sclerae normal Pupils: Equal, round and reactive pupils present EOM: EOMs intact bilaterally Resp: Effort & Inspection: normal respiratory effort Other: Diminished mid lung to bases bilaterally. No crackles appreciated. Cardio: Rate: regular rate Rhythm: regular rhythm Other: S1-S2 present without murmur, rub, ectopy GI: Other: Abdomen soft, nondistended, nontender. Normoactive bowel sounds in all quadrants. Skin: General skin exam: normal color and no rashes or lesions noted Wounds: no wounds Neuro: Speech: normal speech Motor exam (neuro): 5/5 motor strength present throughout Sensory Exam: normal sensation Other: A&O x4 Extrem: Other: trace edema to BLE, nonpitting and symmetric. Psych: Mental Status: mental status grossly normal Affect: normal affect Other: Good insight and judgment, pleasant H&P: Results Labs Labs: Short CBC 10/26/24 Range/Units 12:11 WBC 12.2 H (4.5-10.0) K/mm3 Hgb 15.9 H (12.0-15.0) g/dL Hct 51.7 H (37.0-47.0) % Plt Count 368 (150-375) k/mm3 BMP 10/26/24 12:11 Sodium 138 Potassium 4.3 Chloride 99 Carbon Dioxide 30 BUN 10 Creatinine 0.62 L Glucose 122 H Calcium 9.1 Cardiac Enzymes 10/26/24 Range/Units 12:11 Troponin I < 0.012 (0.000-0.034) ng/mL Liver Function 10/26/24 Range/Units 12:11 Total Bilirubin 0.8 (0.2-1.3) mg/dL AST 29 (14-36) U/L ALT 21 (6-35) U/L Alkaline Phosphatase 105 (38-126) U/L Albumin 4.2 (3.5-5.1) g/dL Urine 10/26/24 Range/Units 11:32 Urine Color Yellow (Yellow) Urine Appearance Clear (Clear) Urine pH 7.0 (5.0-9.0) Ur Specific [place] 1.005 (1.001-1.035) Urine Protein 2+ H (Negative) mg/dL Urine Glucose (UA) Negative (Negative) mg/dL Assessment and Plan Assessment and plan (1) Sepsis: Qualifiers: Acute respiratory failure type: with hypoxia Sepsis acute organ dysfunction status: with acute organ dysfunction Sepsis type: sepsis due to unspecified organism Severe sepsis acute organ dysfunction type: acute respiratory failure Severe sepsis shock status: without septic shock Qualified Code(s): A41.9 - Sepsis, unspecified organism; R65.20 - Severe sepsis without septic shock; J96.01 - Acute respiratory failure with hypoxia Code(s): A41.9 - Sepsis, unspecified organism Status: Acute Assessment and Plan: - meets SIRS criteria: HR, RR. +hypoxia, no current indication of shock. - lactic acid: 0.9, procalcitonin: 0.1 - 30 mL/kg = 3.6L, will start with 1L bolus and assess toleration. - suspected source: Pneumonia - started on ceftriaxone and azithromycin on 10/26 - blood cultures drawn on 10/26, fall - UA showed no indications of infection - CXR:Prominent bronchovascular markings in the lower lobes which may indicate atelectasis versus pneumonia. Follow-up advised. - telemetry to closely monitor hemodynamic stability (2) Acute hypoxemic respiratory failure: Code(s): J96.01 - Acute respiratory failure with hypoxia Status: Acute Assessment and Plan: - new supplemental O2 requirement, 4L nasal cannula. Wean as tolerated. Maintain O2 sat greater than 92%. - presumed secondary to pneumonia - steroids and DuoNebs - monitor (3) Community acquired pneumonia: Qualifiers: Laterality: unspecified laterality Qualified Code(s): J18.9 - Pneumonia, unspecified organism Code(s): J18.9 - Pneumonia, unspecified organism Status: Acute Assessment and Plan: - CXR showed indication of bilateral lower lobe pneumonia - started on ceftriaxone and azithromycin - check MRSA PCR and sputum culture (if obtainable) - Viral PCR negative - supportive care - continue supplemental O2 to maintain O2 sat greater than 92% (4) Hypertension: Qualifiers: Hypertension type: primary hypertension Qualified Code(s): I10 - Essential (primary) hypertension Code(s): I10 - Essential (primary) hypertension Status: Chronic Assessment and Plan: - chronic, currently 192/112 - continue home medications: lisinopril - monitor Plan Diet: Heart healthy GI Prophylaxis: Not currently indicated DVT Prophylaxis: Lovenox SQ IV fluids: 1L bolus, assess toleration Lines/Tubes: Peripheral IV Code Status: Full code Quality VTE Prophylaxis VTE prophylaxis: pharmacologic ordered Hospitalist [facility] Advance Care Plan I have confirmed that the patient's Advanced Care Plan is present, code status is documented, or surrogate decision maker is listed in patient medical record.: Yes Medication Reconciliation I have utilized all available resources to obtain, update and review the patients current medications (includes all prescriptions, OTC, herbals, cannabis, and nutritional supplements).: Yes
[2024-10-26] MEDS: methylPREDNISolone SOD SUCC 125 MG VIAL 60 MG IV PUSH ×2 (14:15→20:40)
[2024-10-26] MEDS: AZITHROMYCIN 500 MG/NS 250 ML 500 MG/250 ML BAG 250 MG IVPB (14:15)
[2024-10-26] MEDS: ENOXAPARIN 40 MG/0.4 ML SYRINGE SUB-Q (14:15)
--- NOTE | 2024-10-26 14:22 | PC.NURSE ---
Pharmacy confirms to run LR and azithromycin separately.
--- OUTSIDE RECORDS SUMMARY | 2024-10-26 15:01 | XMS_ITS | Referral Summary ---
Author Organization [facility] Address [address] [place] [id number] Care Team Providers Care Medical Record Transcriber Name Role Phone Magali Jon NP Primary Care Provider Encounters Date Type Department Care Team Description 09/21/2024 Telephone [facility] Medical [facility] Primary Care at [address] [place] [id number] Magali Jon NP Recommendation Request; Medical Question/Miscellaneous 09/21/2024 10:30 AM CDT Office Visit [facility] Primary Care at [address] [phone] Magali Jon NP Wheezing (Primary [...] CDT - 08/17/2024 11:57 PM CDT Emergency [facility] Emergency Department [address] [place] [address] Amanuel Rendon MD Hypertensive urgency (Primary Dx); [...] for wheezing. I discussed patient seeing an title lawyer, but her sister would like to just do the labs instead of having to go to a specialist visit. 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 Patient is aware of long-term risks posed by chronic hydronephrosis and hydroureter. Check metabolic panel next week for renal function. 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 Patient [...] loss. 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 CH: MELA Report ID: [id number] Reading Location: [id number] Procedure Note Nicholas Amos Jr., MD - [...] by Nicholas Amos M.D. CH: Report ID: [id number] Reading Location: [place] [address] Amanuel Rendon MD IMG XR PROCEDURES Final Resu lt * Influenza A/B, RSV, and COVID-19 PCR Nasopharyngeal (08/17/2024 3:22 PM CDT) COVID-19 RNA Negative Negative Influenza A RNA Negative Negative [facility] ([place]) Influenza B RNA Negative Negative [facility] ([place]) RSV RNA Negative Negative [facility] ([place]) Comment: Interpretive data: Testing performed by [facility]. This test is performed using the [employer] Xpert Xpress CoV-2/Flu/RSV plus assay. This is a multiplex, real- time reverse transcriptase PCR assay intended for the qualitative detection of nucleic acid from SARS-CoV-2, influenza A, influenza B, and respiratory syncytial virus. This assay has been cleared by the [place] Food and Drug administration. The performance characteristics have been verified by the [facility]. Results must be considered in the clinical context, and a negative result does not rule out infection. Interpretive Data last revised 2023 Nasopharyngeal 08/17/2024 3: 22 PM CDT 08/17/2024 3:27 PM CDT Narrative [facility] [place]) - 08/17/2024 4:06 PM CDT Is the Patient experiencing symptoms consistent with COVID?->Yes Amanuel Rendon MD LAB MICROBIOLOGY - GENERAL O RDERABLES Final Result Performing Organization Address [facility] Co de Phone Number [facility] ([place]) [address] [place] [address] [place] [address] * eGFR (08/17/2024 3:22 PM CDT) eGFR [...] ORDERABLES Final R esult Performing Organization Address City/[facility]/ZIP Co de Phone Number [facility] ([place]) 1 [facility] [place] [address] * Differential, auto (08/17/2024 3:22 PM CDT) [...] Final R esult [facility] [place] 1 [facility] [place] [address] * Pro B-type natriuretic peptide (08/17/2024 3:22 [...] Final R esult [facility] ([place]) 1 [facility] [place] [address] * (ABNORMAL) CBC with auto differential (08/17/2024 3:22 PM CDT) [facility] WBC 7.00 3.80 - 9.90 K/cumm [...] Final R esult [facility] ([place]) 1 [facility] [place] [address] * D-dimer, quantitative (08/17/2024 3:22 PM CDT) Pathologist [facility] D-Dimer 377 <=499 ng/mL FEU [facility] [...] ORDERABLES Final R esult Performing Organization Address City/[facility]/ZIP Co de Phone Number [facility] ([place]) 1 [facility] [place] [address] * (ABNORMAL) CRP (acute phase) (08/17/2024 3:22 PM CDT) CRP 23.4(H) <=10.0 mg/L Blood 08/17/2024 3:22 PM CDT 08/17/2024 9:48 PM CDT Amanuel Rendon MD LAB BLOOD ORDERABLES Final R esult [facility] ([place]) 1 [facility] [place] [address] * Comprehensive metabolic panel (08/17/2024 3:22 PM CDT) Sodium 141 135 - 145 mmol/L Potassium, pl 4.5 3.3 - 4.9 mmol/L [facility] ([place]) Chloride 102 97 - 110 mmol/L [facility] ([place]) CO2 27 22 - 32 mmol/L [facility] ([place]) Anion gap 13 2 - 15 mmol/L [facility] ([place]) BUN 12 6 - 25 [...] MD LAB BLOOD ORDERABLES Final R esult [facility] ([place]) 1 [facility] Department of Laboratories [place], [place] [id number] * Stool DNA - Cologuard (07/14/2019) Scribed Stool DNA - Cologuard Negative [facility] Stool 07/14/2019 us aSnjiv Conte MD LAB BODY FLUIDS AND STOOLS O RDERABLES Final Result [facility] * Diagnostic Mammogram Bilateral W [place] (08/06/2016 7:29 PM CDT) Anatomical Region Laterality Modality Breast Bilateral Mammography 08/06/2016 7:29 PM CDT Narrative 08/06/2016 7:29 PM CDT SCREENING MAMM W [facility]ILMER BI Acc#: [id number] DATE OF EXAM: Aug 06 2016 CLINICAL HISTORY: Screening. Performed by: [facility] RESULT: Craniocaudal and mediolateral oblique views to [...] on: Aug 06 2016 2:29P Transcribed by: [facility] On: Aug 06 2016 4:05P Approved Electronically by: CARMELO Lovett, DR OTERO on: Aug 06 2016 7:55P Attending: DR SANJIV CONTE Requesting: DR SANJIV CONTE Requesting Attending Attending ID: [id number] Requesting ID: [id number] Report To 1 ID: [id number] Report To 1 Name: DR SANJIV CONTE Report To 1 FAX: [phone] NextGen Order #: Procedure Note Miscellaneous, Notinfile / Provider, MD Richard - 10/02/2016 SCREENING MAMM W [facility] BI Acc#: [id number] DATE OF EXAM: Aug 06 2016 CLINICAL HISTORY: Screening. Performed by: [facility] RESULT: Craniocaudal and mediolateral oblique views to [...] Read on: Aug 06 20162:29P Transcribed by: [facility] On: Aug 06 2016 4:05P Approved Electronically by: CARMELO Lovett, DR OTERO on: Aug 06 20167:55P Attending: DR SANJIV CONTE Requesting: DR SANJIV CONTE Requesting Attending Attending ID: [id number] Requesting ID: [id number] Report To 1 ID: [id number] Report To 1 Name: DR SANJIV CONTE Report To 1 FAX: [phone] NextGen Order #: us Not In File Miscellaneous IMG MAMMO PROCEDURES F inal Result * DEXA SCAN (10/02/2011) DEXA Scan Normal us Historical Provider HEALTH MAINTENANCE Final Result from Last 3 Months or Most Recently Relevant to Health Maintenance Insurance MEDICARE MEDICARE MEDICARE Care Teams Medical Record Transcriber Relationship Specialty Start Date End Date Magali Jon NP [id number] [facility] [address] [place] [address] PCP - General Nurse Practitioner 09/21/24
--- OUTSIDE RECORDS SUMMARY | 2024-10-26 15:01 | XMS_ITS | Clinical Summary ---
Author Organization [facility] Address [address] [place] [phone] Care Team Providers Care Video Tape Transferrer Name Role Phone DanayMagali schwab JOSÉ Primary [...] for wheezing. I discussed patient seeing an health and physical education professor, but her sister would like to just do the labs instead of having to go to a specialist visit. Hydronephrosis 05/09/2020 Assessment & Plan (05/09/2020 4:59 PM [facility]): Could certainly have been due to a stone but without seeing this on her CT scan will refer to urology for further evaluation. Patient is aware of long-term risks posed by chronic hydronephrosis and hydroureter. Check metabolic panel next week for renal function. Leukocytosis 05/09/2020 Assessment & Plan (05/09/2020 5:00 PM [facility]): Repeat CBC next week to ensure normalization [...] fall prevention, proper nutrition, and suggested joining [facility] to accomplish most of these goals. Patient [...] loss. Assessment & Plan (05/09/2020 5:00 PM [facility]): Remains well controlled at home and there [...] Description 09/21/2024 10:30 AM CDT Office Visit [facility] Primary Care at [address] [phone] Magali Jon NP Wheezing (Primary [...] risk patient; Colon cancer screening 09/21/2024 Telephone [facility] Primary Care at [address] [place] [phone] Magali Jon NP Recommendation Request; Medical Question/Miscellaneous 08/17/2024 8:54 PM CDT - 08/17/2024 11:57 PM CDT Emergency [facility] Emergency Department [address] [place] [address] Amanule Rendon MD Hypertensive urgency (Primary Dx); Subacute [...] Mother Diabetes mellit us; Heart attack Mother PR; Hypertension Mother Hypertension; Relation Name Status Comments [...] on file Legal Sex Female 2:38 PM [facility] Gender Identity Not on file Sexual Orientation [...] Procedure Name Priority Date/Time Associated Diagnosis Comments [place] CRITICAL CARE ILL/INJURED PATIENT INIT 30-74 MIN [...] Recently Relevant to Health Maintenance Results * [place] CRITICAL CARE ILL/INJURED PATIENT INIT 30-74 MIN [...] BLOOD ORDERABLES Final R esult LICHA OSBORNE ([place]) 1 [facility] Department [place] [address] * XR Chest 1 Vw Portable (08/17/2024 [...] Nicholas Amos M.D. CH: MELA Report ID: [id number] Reading Location: [place] [address] Procedure Note Nicholas Amos Jr., MD - [...] by Nicholas Amos M.D. CH: Report ID: [id number] Reading Location: [place] [address] Amanuel Rendon MD IMG XR PROCEDURES Final Resu lt * Influenza A/B, RSV, and COVID-19 PCR Nasopharyngeal (08/17/2024 3:22 PM CDT) COVID-19 RNA Negative Negative Influenza A RNA Negative Negative [facility] ([place]) Influenza B RNA Negative Negative [facility] ([place]) RSV RNA Negative Negative [facility] ([place]) Comment: Interpretive data: Testing performed by [facility]. This test is performed using the [employer] Xpert Xpress CoV-2/Flu/RSV plus assay. This is a multiplex, real- time reverse transcriptase PCR assay intended for the qualitative detection of nucleic acid from SARS-CoV-2, influenza A, influenza B, and respiratory syncytial virus. This assay has been cleared by the [place] Food and Drug administration. The performance characteristics have been verified by the [facility]. Results must be considered in the clinical context, and a negative result does not rule out infection. Interpretive Data last revised 2023 Nasopharyngeal 08/17/2024 3: 22 PM CDT 08/17/2024 3:27 PM CDT Narrative LICHA OSBORNE ([place]) - 08/17/2024 4:06 PM CDT Is the Patient experiencing symptoms consistent with COVID?->Yes Amanuel Rendon MD LAB MICROBIOLOGY - GENERAL O RDERABLES Final Result Performing Organization Address City/[facility]/ZIP Co de Phone Number LICHA OSBORNE ([place]) 1 [facility] [place] [address] * eGFR (08/17/2024 3:22 PM CDT) eGFR [...] ORDERABLES Final R esult Performing Organization Address City/[facility]/ZIP Co de Phone Number LICHA OSBORNE ([place]) 1 [facility] [place] [address] * Differential, auto (08/17/2024 3:22 PM CDT) [...] Eosinophil pct 4.9 % [facility] ([place]) Comment: Interpretive Data Percent cell count reference [...] ORDERABLES Final R esult Performing Organization Address City/[facility] Co de Phone Number LICHA OSBORNE ([place]) 1 [facility] [place] [address] * Pro B-type natriuretic peptide (08/17/2024 3:22 [...] ORDERABLES Final R esult Performing Organization Address City/[facility]/ZIP Co de Phone Number LICHA OSBORNE ([place]) 1 [facility] Department [place] [address] * (ABNORMAL) CBC with auto differential (08/17/2024 3:22 PM CDT) [facility] WBC 7.00 3.80 - 9.90 K/cumm Hgb 16.6(H) 11.9 - 15.5 g/dL [facility] Hct 51.1(H) 35.6 - 45.5 % [facility] ([place]) Plt 283 150 - 400 K/cumm [facility] ([place]) MPV 8.9(L) 9.1 - 12.3 fL [facility] ([place]) RBC 6.06(H) 3.90 - 5.20 M/cumm [facility] ([place]) MCV 84.3 81.3 - 96.4 fL [facility] ([place]) MCH 27.4 27.1 - 33.3 pg [facility] ([place]) MCHC 32.5 32.3 - 35.7 g/dL [facility] ([place]) RDW CV 14.5 11.1 - 14.9 % [facility] ([place]) RDW SD 43.5 35.7 - 48.1 fL [facility] ([place]) NRBC abs 0.00 0.00 - 0.01 K/cumm [facility] ([place]) Blood 08/17/2024 3:22 PM CDT 08/17/2024 3:27 PM CDT Amanuel Rendon MD LAB BLOOD ORDERABLES Final R esult [facility] ([place] 1 [facility] Department [place] [address] * D-dimer, quantitative (08/17/2024 3:22 PM CDT) [facility] D-Dimer 377 <=499 ng/mL FEU [facility] ([place]) Comment: Interpretive data FDA approved [...] ORDERABLES Final R esult Performing Organization Address City/[facility]/ZIP Co de Phone Number LICHA OSBORNE ([place]) 1 [facility] [employer] [address] * (ABNORMAL) CRP (acute phase) (08/17/2024 3:22 PM CDT) CRP 23.4(H) <=10.0 mg/L Blood 08/17/2024 3:22 PM CDT 08/17/2024 9:48 PM CDT Amanuel Rendon MD LAB BLOOD ORDERABLES Final R esult LICHA OSBORNE ([place]) 1 [facility] [place] [address] * Comprehensive metabolic panel (08/17/2024 3:22 PM CDT) Sodium 141 135 - 145 mmol/L Potassium, pl 4.5 3.3 - 4.9 mmol/L [facility] ([place]) Chloride 102 97 - 110 mmol/L [facility] ([place]) CO2 27 22 - 32 mmol/L [facility] ([place]) Anion gap 13 2 - 15 mmol/L [facility] ([place]) BUN 12 6 - 25 mg/dL [facility] ([place]) Creatinine 0.66 0.60 - 1.10 [...] MD LAB BLOOD ORDERABLES Final R esult [facility] ([place] 1 [facility] Department of Laboratories [place], [place] [id number] * Stool DNA - Cologuard (07/14/2019) Scribed Stool DNA - Cologuard Negative [facility] Stool 07/14/2019 Sanjiv Conte MD LAB BODY FLUIDS AND STOOLS O RDERABLES Final Result [facility] * Diagnostic Mammogram Bilateral W Wilmer (08/06/2016 7:29 PM CDT) Anatomical Region Laterality Modality Breast Bilateral Mammography 08/06/2016 7:29 PM CDT Narrative 08/06/2016 7:29 PM CDT SCREENING MAMM W WILMER BI Acc#: [id number] DATE OF EXAM: Aug 06 2016 CLINICAL HISTORY: Screening. Performed by: [facility] RESULT: Craniocaudal and mediolateral oblique [...] on: Aug 06 2016 2:29P Transcribed by: [facility] On: Aug 06 2016 4:05P Approved Electronically by: CARMELO Lovett, DR HURT on: Aug 06 2016 7:55P Attending: DR SANJIV CONTE Requesting: DR SANJIV CONTE Requesting Attending Attending ID: [id number] Requesting ID: [id number] Report To 1 ID: [id number] Report To 1 Name: DR SANJIV CONTE Report To 1 FAX: [phone] NextGen Order #: Procedure Note Miscellaneous, Notinfile / Provider, MD Richard - 10/02/2016 SCREENING MAMM W WILMER BI Acc#: [id number] DATE OF EXAM: Aug 06 2016 CLINICAL HISTORY: Screening. Performed by: [facility] RESULT: Craniocaudal and mediolateral oblique [...] Read on: Aug 06 20162:29P Transcribed by: [facility] On: Aug 06 2016 4:05P Approved Electronically by: DR SHANNA RHODES M.D. on: Aug 06 20167:55P Attending: DR SANJIV CONTE Requesting: DR SANJIV CONTE Requesting Attending Attending ID: [id number] Requesting ID: [id number] Report To 1 ID: [id number] Report To 1 Name: DR SANJIV CONTE Report To 1 FAX: [phone] NextGen Order #: us Not In File Miscellaneous IMG MAMMO PROCEDURES F inal Result * DEXA SCAN (10/02/2011) DEXA Scan Normal us Historical Provider HEALTH MAINTENANCE Final Result from Last 3 Months or Most Recently Relevant to Health Maintenance Insurance MEDICARE MEDICARE MEDICARE Care Teams Video Tape Transferrer Relationship Specialty Start Date End Date Magali Jon NP [id number] [facility] [address] [place] [address] PCP - General Nurse Practitioner 09/21/24
[2024-10-26] MEDS: LACTATED RINGERS 1,000 ML 999 ML IV CONT (15:48)
--- NOTE | 2024-10-26 15:53 | ADMGEN ---
This patient, Zenaida Heart, was admitted to 3 [facility] Surg Room 316-01. Patient/family oriented to hospital policies and general routines including ID bracelet, bed and alarms, visiting hours, pain management, procedures, bathroom and other care routines, personal items, smoking policy, room service/diet, and visiting hours. Information on how to activate the Rapid Response Team has been discussed. Patient/Family are encouraged to report perceived risks to care and to ask questions if they do not understand what they are told or what they should do.
[2024-10-26] MEDS: guaiFENesin 12 HR 600 MG TABCR PO (20:39)
[2024-10-26] MEDS: BENZONATATE 100 MG CAPSULE PO (20:41)
[2024-10-27] VITALS (19 sets, daily range): BP systolic 139–176; BP diastolic 61–79; PULSE 86–111; RESP 16–20; TEMP 36.1–37.1; O2SAT 93–96
[2024-10-27] MEDS: IPRATROPIUM 0.5 MG/ALBUTEROL SULFATE 2.5 MG AMPUL.NEB 3 ML INHALATION ×4 (01:33→20:34)
[2024-10-27] MEDS: methylPREDNISolone SOD SUCC 125 MG VIAL 60 MG IV PUSH ×2 (05:19→14:16)
[2024-10-27 06:04] LABS: Basophils Percent Auto 0.1 % (0.2-1.2); Hematocrit 46.2 % (37.0-47.0); Hemoglobin 14.1 g/dL (12.0-15.0); Immature Granulocyte Absolute 0.06 K/mm3 (0.00-0.031); Immature Granulocyte Percent A 0.7 % (0-0.5); Lymphocytes Percent Auto 15.4 % (18.3-44.2); Mean Corpuscular HGB Conc 30.5 g/dl (32-36); Mean Corpuscular Hemoglobin 26.1 pg (26-34); Mean Corpuscular Volume 85.4 fl (80-100); Monocytes Absolute Auto 0.1 K/mm3 (0.1-0.6); Monocytes Percent Auto 1.2 % (2.6-8.5); Neutrophils Percent Auto 82.6 % (45.5-73.1); Platelet Count Result 364 k/mm3 (150-375); Red Blood Count 5.41 M/mm3 (4.2-5.4); Red Cell Distribution Width 14.4 % (11.5-14.5); White Blood Count 8.4 K/mm3 (4.5-10.0)
[2024-10-27 06:36] LABS: Alanine Aminotransferase 22 U/L (6-35); Albumin Level 3.8 g/dL (3.5-5.1); Alkaline Phosphatase 79 U/L (38-126); Anion Gap 8 mmol/L (4-12); Aspartate Amino Transferase 24 U/L (14-36); Bilirubin,Total 0.4 mg/dL (0.2-1.3); Blood Urea Nitrogen 18 mg/dL (7-17); Calcium 8.8 mg/dL (8.4-10.2); Carbon Dioxide 29 mmol/L (22-30); Chloride 102 mmol/L (98-107); Estimated Glomerular Filt Rate > 60; Glucose 160 mg/dL (65-110); Potassium 4.3 mmol/L (3.4-5.0); Sodium 139 mmol/L (137-145); Total Protein 7.7 g/dL (6.3-8.2)
[2024-10-27] MEDS: lisinopriL 10 MG TABLET PO (08:51)
[2024-10-27] MEDS: guaiFENesin 12 HR 600 MG TABCR PO ×2 (08:51→21:04)
[2024-10-27] MEDS: ENOXAPARIN 40 MG/0.4 ML SYRINGE SUB-Q (08:51)
[2024-10-27 09:28] LABS: Magnesium 2.1 mg/dL (1.6-2.3)
[2024-10-27] MEDS: AZITHROMYCIN 500 MG/NS 250 ML 500 MG/250 ML BAG 250 MG IVPB (09:30)
--- NOTE | 2024-10-27 10:27 | PM.IMPN ---
Progress Note: A&P Assessment and Plan (1) Sepsis: Qualifiers: Acute respiratory failure type: with hypoxia Sepsis acute organ dysfunction status: with acute organ dysfunction Sepsis type: sepsis due to unspecified organism Severe sepsis acute organ dysfunction type: acute respiratory failure Severe sepsis shock status: without septic shock Qualified Code(s): A41.9 - Sepsis, unspecified organism; R65.20 - Severe sepsis without septic shock; J96.01 - Acute respiratory failure with hypoxia Code(s): A41.9 - Sepsis, unspecified organism Status: Acute Assessment and Plan: - meets SIRS criteria: HR, RR. +hypoxia, no current indication of shock. - lactic acid: 0.9, procalcitonin: 0.1 - 30 mL/kg = 3.6L, will start with 1L bolus and assess toleration. - suspected source: Pneumonia - started on ceftriaxone and azithromycin on 10/26 - blood cultures drawn on 10/26, fall - UA showed no indications of infection - CXR:Prominent bronchovascular markings in the lower lobes which may indicate atelectasis versus pneumonia. Follow-up advised. - telemetry to closely monitor hemodynamic stability - WBC 8.4. (2) Acute hypoxemic respiratory failure: Code(s): J96.01 - Acute respiratory failure with hypoxia Status: Acute Assessment and Plan: - new supplemental O2 requirement, 3L nasal cannula with Sa02 96%. Wean as tolerated. Maintain O2 sat greater than 92%. - presumed secondary to pneumonia - steroids and DuoNebs - monitor (3) Community acquired pneumonia: Qualifiers: Laterality: unspecified laterality Qualified Code(s): J18.9 - Pneumonia, unspecified organism Code(s): J18.9 - Pneumonia, unspecified organism Status: Acute Assessment and Plan: - CXR showed indication of bilateral lower lobe pneumonia - started on ceftriaxone and azithromycin - check MRSA PCR and sputum culture (if obtainable) - Viral PCR negative - supportive care - continue supplemental O2 to maintain O2 sat greater than 92% (4) Hypertension: Qualifiers: Hypertension type: primary hypertension Qualified Code(s): I10 - Essential (primary) hypertension Code(s): I10 - Essential (primary) hypertension Status: Chronic Assessment and Plan: - chronic, currently 148/63 - continue home medications: lisinopril - monitor (5) Morbid obesity with BMI of 50.0-59.9, adult: Code(s): E66.01 - Morbid (severe) obesity due to excess calories; Z68.43 - Body mass index [BMI] 50.0-59.9, adult Status: Acute Assessment and Plan: Heart healthy diet. PT/OT. Encourage activity. Subjective Date/time seen: 10/27/24 10:27 Interval history: Patient sitting up in bed. Patient reports coughing up a little bit of green sputum. Patient reports that breathing is a little better. Patient denies chest pain, palpitations, headache, dizziness, nausea, or vomiting. Review of Systems Review of Systems: All systems reviewed & are unremarkable except as noted in HPI and below Exam Const: General: comfortable and no acute distress Resp: Effort & Inspection: normal respiratory effort Auscultation: no wheezes and diminished lung sounds Cardio: Rate: tachycardic Other: Telemetry- ST 108 GI: GI Palp: Yes Soft to palpation Auscultation: normal bowel sounds Neuro: Speech: normal speech Extrem: General: pedal edema bilaterally (trace) Psych: Mental Status: mental status grossly normal Affect: normal affect Objective Data Vital Signs Vital Signs: Vital Signs - 24 hr 10/26/24 11:07 10/26/24 11:12 10/26/24 11:38 Temperature 97.5 F L Pulse Rate 115 H 116 H Respiratory Rate 28 H 30 H Blood Pressure 197/129 H Pulse Oximetry 80 L 97 97 Oxygen Delivery Room Air Nasal Cannula Oxygen Flow Rate 4 10/26/24 11:52 10/26/24 12:00 10/26/24 12:04 Temperature Pulse Rate 112 H 112 H 112 H Respiratory Rate 20 24 H 23 H Blood Pressure Pulse Oximetry 100 Oxygen Delivery Oxygen Flow Rate 10/26/24 12:51 10/26/24 13:00 10/26/24 13:15 Temperature Pulse Rate 109 H 108 H 107 H Respiratory Rate 20 26 H 33 H Blood Pressure 192/112 H Pulse Oximetry 95 94 93 Oxygen Delivery Oxygen Flow Rate 10/26/24 13:31 10/26/24 14:01 10/26/24 15:35 Temperature 96.3 F L Pulse Rate 107 H 104 H 108 H Respiratory Rate 31 H 15 20 Blood Pressure 186/96 H 194/94 H 189/94 H Pulse Oximetry 92 93 95 Oxygen Delivery Oxygen Flow Rate 10/26/24 15:40 10/26/24 15:40 10/26/24 15:51 Temperature Pulse Rate 105 H 105 H 106 H Respiratory Rate 20 20 20 Blood Pressure Pulse Oximetry 92 Oxygen Delivery Nasal Cannula Oxygen Flow Rate 3 10/26/24 16:21 10/26/24 20:00 10/26/24 20:00 Temperature Pulse Rate 106 H 104 H Respiratory Rate 20 Blood Pressure Pulse Oximetry 92 93 Oxygen Delivery Nasal Cannula Nasal Cannula Oxygen Flow Rate 3 3 10/26/24 20:10 10/26/24 20:16 10/26/24 20:21 Temperature Pulse Rate 108 H 108 H 104 H Respiratory Rate 20 20 Blood Pressure Pulse Oximetry 90 Oxygen Delivery Nasal Cannula Oxygen Flow Rate 3 10/26/24 21:43 10/27/24 00:25 10/27/24 01:34 Temperature 98.4 F Pulse Rate 107 H 105 H 103 H Respiratory Rate 18 20 Blood Pressure 142/81 H Pulse Oximetry 93 Oxygen Delivery Oxygen Flow Rate 10/27/24 01:42 10/27/24 04:00 10/27/24 05:49 Temperature 98.7 F Pulse Rate 100 101 H 103 H Respiratory Rate 20 18 Blood Pressure 174/79 H Pulse Oximetry 96 Oxygen Delivery Oxygen Flow Rate 10/27/24 07:58 10/27/24 08:10 10/27/24 09:18 Temperature Pulse Rate 89 88 111 H Respiratory Rate 20 20 16 Blood Pressure Pulse Oximetry 93 Oxygen Delivery Nasal Cannula Oxygen Flow Rate 3.5 Intake/Output Intake/Output: Intake & Output 10/24/24 10/25/24 10/26/24 10/27/24 23:59 23:59 23:59 23:59 Intake Total 390 322 Balance 390 322 Meds/Results Medications: Active Medications Generic Name Dose Route Start Last Admin Trade Name Freq PRN Reason Stop Dose Admin Acetaminophen 650 mg 10/26/24 13:08 Acetaminophen 325 Mg Tablet PO Q4H PRN Mild Pain (1-3) or Fever Albuterol/Ipratropium 3 ml 10/26/24 14:00 10/27/24 07:58 Ipratropium 0.5 Mg/Albuterol Sulfate 2.5 Mg Ampul.Neb 3 Ml INHALATION 3 ml Q6HRT NIURKA Administration Benzonatate 100 mg 10/26/24 13:17 10/26/24 20:41 Benzonatate 100 Mg Capsule PO 100 mg TID PRN Administration Cough Enoxaparin Sodium 40 mg 10/26/24 13:30 10/27/24 08:51 Enoxaparin 40 Mg/0.4 Ml Syringe SUB-Q 40 mg DAILY NIURKA Administration Guaifenesin 600 mg 10/26/24 21:00 10/27/24 08:51 Guaifenesin 12 Hr 600 Mg Tabcr PO 600 mg Q12HR NIURKA Administration Ceftriaxone Sodium 1 gm in 50 mls @ 100 mls/hr 10/27/24 09:00 10/27/24 08:51 Rocephin 1 Gm/Ns 50 Ml IVPB 100 mls/hr QAM NIURKA Administration Azithromycin 500 mg in 250 mls @ 250 mls/hr 10/27/24 09:00 10/27/24 09:30 Zithromax IVPB 250 mls/hr Q24H NIURKA Administration Lisinopril 10 mg 10/27/24 09:00 10/27/24 08:51 Lisinopril 10 Mg Tablet PO 10 mg DAILY NIURKA Administration Methylprednisolone Sodium Succinate 60 mg 10/26/24 14:00 10/27/24 05:19 Methylprednisolone Sod Succ 125 Mg Vial IV PUSH 60 mg Q8HR NIURKA Administration Metoclopramide HCl 10 mg 10/26/24 13:18 Metoclopramide Hcl 10 Mg Tablet PO Q6H PRN Nausea And Vomiting Radiology Results: ITS Impressions Chest X-Ray 10/26/24 12:23 IMPRESSION: Prominent bronchovascular markings in the lower lobes which may indicate atelectasis versus pneumonia. Follow-up advised. Labs Labs: Laboratory Results - last 24 hr 10/26/24 10/26/24 10/26/24 11:32 11:49 12:11 WBC 12.2 H RBC 6.12 H Hgb 15.9 H Hct 51.7 H MCV 84.5 MCH 26.0 MCHC 30.8 L RDW 14.3 Plt Count 368 MPV 8.6 Immature Gran % (Auto) 0.3 Neut % (Auto) 76.3 H Lymph % (Auto) 15.6 L [place] % (Auto) 5.7 Eos % (Auto) 1.6 Baso % (Auto) 0.5 Lymph # (Auto) 1.89 [place] # (Auto) 0.7 H Eos # (Auto) 0.2 Baso # (Auto) 0.1 Abs Immat Gran (auto) 0.04 H Absolute Neuts (auto) 9.3 H Absolute Nucleated RBC 0.000 Nucleated RBC % 0.0 PT 14.8 H INR 1.1 APTT 31.2 Puncture Site Right radial ABG pH 7.395 ABG pCO2 56.3 H ABG pO2 72.7 L ABG PO2/FiO2 Ratio 2.27 ABG HCO3 33.7 H ABG O2 Saturation 94.3 L ABG O2 Content 22.2 H ABG Base Excess 6.7 A-a Gradient 89.6 Oxyhemoglobin 93.1 Total Hemoglobin 17.0 O2 Delivery Device Nasal cannula O2 Liters/Min 3.0 FiO2 32 Sodium 138 Potassium 4.3 Chloride 99 Carbon Dioxide 30 Anion Gap 9 BUN 10 Creatinine 0.62 L Estim Creat Clear Calc Not Reportable Estimated GFR > 60 Glucose 122 H Lactic Acid 0.9 Calcium 9.1 Magnesium 1.9 Total Bilirubin 0.8 AST 29 ALT 21 Alkaline Phosphatase 105 Troponin I < 0.012 NT-Pro-B Natriuret Pep 462 H Total Protein 8.7 H Albumin 4.2 Procalcitonin 0.1 Urine Color Yellow Urine Appearance Clear Urine pH 7.0 Ur Specific [place] 1.005 Urine Protein 2+ H Urine Glucose (UA) Negative Urine Ketones Trace H Ur Blood (Man) Negative Urine Nitrate Negative Urine Bilirubin Negative Urine Urobilinogen 0.2 Leukocyte Esterase Rfl Negative Urine RBC 0-2 Urine WBC 0-5 Ur Squamous Epith Cells None seen Urine Bacteria None seen Urine Casts 0-2 Influenza A (RT-PCR) Negative Influenza B (RT-PCR) Negative RSV (RT-PCR) Negative SARS-CoV-2 RNA (RT-PCR) Negative 10/27/24 10/27/24 05:45 05:49 WBC 8.4 RBC 5.41 H Hgb 14.1 Hct 46.2 MCV 85.4 MCH 26.1 MCHC 30.5 L RDW 14.4 Plt Count 364 MPV 9.0 Immature Gran % (Auto) 0.7 H Neut % (Auto) 82.6 H Lymph % (Auto) 15.4 L [place] % (Auto) 1.2 L Eos % (Auto) 0.0 Baso % (Auto) 0.1 L Lymph # (Auto) 1.30 [place] # (Auto) 0.1 Eos # (Auto) 0.0 Baso # (Auto) 0.0 Abs Immat Gran (auto) 0.06 H Absolute Neuts (auto) 7.0 H Absolute Nucleated RBC 0.000 Nucleated RBC % 0.0 PT INR APTT Puncture Site ABG pH ABG pCO2 ABG pO2 ABG PO2/FiO2 Ratio ABG HCO3 ABG O2 Saturation ABG O2 Content ABG Base Excess A-a Gradient Oxyhemoglobin Total Hemoglobin O2 Delivery Device O2 Liters/Min FiO2 Sodium 139 Potassium 4.3 Chloride 102 Carbon Dioxide 29 Anion Gap 8 BUN 18 H Creatinine 0.68 L Estim Creat Clear Calc Not Reportable Estimated GFR > 60 Glucose 160 H Lactic Acid Calcium 8.8 Magnesium 2.1 Total Bilirubin 0.4 AST 24 ALT 22 Alkaline Phosphatase 79 Troponin I NT-Pro-B Natriuret Pep Total Protein 7.7 Albumin 3.8 Procalcitonin Urine Color Urine Appearance Urine pH Ur Specific [place] Urine Protein Urine Glucose (UA) Urine Ketones Ur Blood (Man) Urine Nitrate Urine Bilirubin Urine Urobilinogen Leukocyte Esterase Rfl Urine RBC Urine WBC Ur Squamous Epith Cells Urine Bacteria Urine Casts Influenza A (RT-PCR) Influenza B (RT-PCR) RSV (RT-PCR) SARS-CoV-2 RNA (RT-PCR) Quality VTE Prophylaxis VTE prophylaxis: pharmacologic ordered
--- NOTE | 2024-10-27 10:50 | P.CDI_ITS ---
CDI Query Clarification Request Patient with a BMI of 53.6 please provide a diagnosis to accompany this finding: * Overweight * Obesity * Morbid Obesity * Other/Unknown <Diana Koenig RN - Last Filed: 10/27/24 10:50> Clarified Diagnosis Clarified Diagnosis: morbid obesity added <Batsheva Nevarez APRN - Last Filed: 10/27/24 17:23>
[2024-10-28] VITALS (23 sets, daily range): BP systolic 136–163; BP diastolic 62–93; PULSE 82–104; RESP 16–20; TEMP 36.1–36.4; O2SAT 91–97
[2024-10-28] MEDS: IPRATROPIUM 0.5 MG/ALBUTEROL SULFATE 2.5 MG AMPUL.NEB 3 ML INHALATION ×4 (01:50→20:34)
[2024-10-28 06:09] LABS: Basophils Percent Auto 0.1 % (0.2-1.2); Hematocrit 44.7 % (37.0-47.0); Hemoglobin 13.6 g/dL (12.0-15.0); Immature Granulocyte Absolute 0.06 K/mm3 (0.00-0.031); Immature Granulocyte Percent A 0.4 % (0-0.5); Lymphocytes Absolute Auto 1.39 K/mm3 (0.9-3.2); Lymphocytes Percent Auto 9.5 % (18.3-44.2); Mean Corpuscular HGB Conc 30.4 g/dl (32-36); Mean Corpuscular Hemoglobin 26.4 pg (26-34); Mean Corpuscular Volume 86.8 fl (80-100); Mean Platelet Volume 9.2 fl (7.4-10.4); Monocytes Absolute Auto 0.6 K/mm3 (0.1-0.6); Monocytes Percent Auto 4.3 % (2.6-8.5); Neutrophils Absolute Auto 12.6 K/mm3 (1.3-6.7); Neutrophils Percent Auto 85.7 % (45.5-73.1); Platelet Count Result 353 k/mm3 (150-375); Red Blood Count 5.15 M/mm3 (4.2-5.4); Red Cell Distribution Width 14.5 % (11.5-14.5); White Blood Count 14.7 K/mm3 (4.5-10.0)
[2024-10-28 06:23] LABS: Alanine Aminotransferase 24 U/L (6-35); Albumin Level 3.3 g/dL (3.5-5.1); Alkaline Phosphatase 78 U/L (38-126); Anion Gap 6 mmol/L (4-12); Aspartate Amino Transferase 27 U/L (14-36); Bilirubin,Total 0.1 mg/dL (0.2-1.3); Blood Urea Nitrogen 20 mg/dL (7-17); Calcium 8.9 mg/dL (8.4-10.2); Carbon Dioxide 30 mmol/L (22-30); Chloride 104 mmol/L (98-107); Estimated Glomerular Filt Rate > 60; Glucose 142 mg/dL (65-110); Magnesium 2.1 mg/dL (1.6-2.3); Potassium 4.3 mmol/L (3.4-5.0); Sodium 140 mmol/L (137-145); Total Protein 6.9 g/dL (6.3-8.2)
[2024-10-28] MEDS: AZITHROMYCIN 500 MG/NS 250 ML 500 MG/250 ML BAG 250 MG IVPB (09:12)
[2024-10-28] MEDS: lisinopriL 10 MG TABLET PO (09:13)
[2024-10-28] MEDS: BENZONATATE 100 MG CAPSULE PO (09:13)
[2024-10-28] MEDS: guaiFENesin 12 HR 600 MG TABCR PO ×2 (09:13→21:30)
[2024-10-28] MEDS: methylPREDNISolone SOD SUCC 125 MG VIAL 60 MG IV PUSH (09:16)
[2024-10-28] MEDS: ENOXAPARIN 40 MG/0.4 ML SYRINGE SUB-Q (09:16)
[2024-10-28] MEDS: ACETAMINOPHEN 325 MG TABLET 650 MG PO ×2 (11:20→15:00)
--- NOTE | 2024-10-28 12:09 | P.PNIM_ITS ---
Progress Note: A&P Assessment and Plan (1) Sepsis: Qualifiers: Sepsis type: sepsis due to unspecified organism Sepsis acute organ dysfunction status: with acute organ dysfunction Severe sepsis acute organ dysfunction type: acute respiratory failure Acute respiratory failure type: with hypoxia Severe sepsis shock status: without septic shock Qualified Code(s): A41.9 - Sepsis, unspecified organism; R65.20 - Severe sepsis without septic shock; J96.01 - Acute respiratory failure with hypoxia Code(s): A41.9 - Sepsis, unspecified organism Status: Acute Assessment and Plan: - meets SIRS criteria: HR, RR. +hypoxia, no current indication of shock. - lactic acid: 0.9, procalcitonin: 0.1 - 30 mL/kg = 3.6L, will start with 1L bolus and assess toleration. - suspected source: Pneumonia - started on ceftriaxone and azithromycin on 10/26 - blood cultures drawn on 10/26, fall - UA showed no indications of infection - CXR:Prominent bronchovascular markings in the lower lobes which may indicate atelectasis versus pneumonia. Follow-up advised. - telemetry to closely monitor hemodynamic stability - WBC 14.7 (2) Acute hypoxemic respiratory failure: Code(s): J96.01 - Acute respiratory failure with hypoxia Status: Acute Assessment and Plan: - new supplemental O2 requirement, 3L nasal cannula with Sa02 96%. Wean as tolerated. Maintain O2 sat greater than 92%. - presumed secondary to pneumonia - steroids and DuoNebs - monitor (3) Community acquired pneumonia: Qualifiers: Laterality: unspecified laterality Qualified Code(s): J18.9 - Pneumonia, unspecified organism Code(s): J18.9 - Pneumonia, unspecified organism Status: Acute Assessment and Plan: - CXR showed indication of bilateral lower lobe pneumonia - Ceftriaxone and azithromycin. - check MRSA PCR and sputum culture (if obtainable) - Viral PCR negative - supportive care - continue supplemental O2 to maintain O2 sat greater than 92% - Change steroid to oral Prednisone 40 mg PO daily. - Add ocean nasal spray and loratadine 5 mg PO daily. (4) Hypertension: Qualifiers: Hypertension type: primary hypertension Qualified Code(s): I10 - Essential (primary) hypertension Code(s): I10 - Essential (primary) hypertension Status: Chronic Assessment and Plan: - chronic, currently 136/93. - continue home medications: Lisinopril - monitor (5) Morbid obesity with BMI of 50.0-59.9, adult: Code(s): E66.01 - Morbid (severe) obesity due to excess calories; Z68.43 - Body mass index [BMI] 50.0-59.9, adult Status: Acute Assessment and Plan: * Heart healthy diet. * PT/OT. * Encourage activity. Subjective Date/time seen: 10/28/24 12:09 Interval history: Patient sitting up in chair today. Patient reports that her breathing is feeling better. Patient reports that she is having dryness and sinus a little sore. Patient denies chest pain, palpitations, headache, dizziness, nausea, or vomiting. Review of Systems Review of Systems: All systems reviewed & are unremarkable except as noted in HPI and below Exam Const: General: comfortable and no acute distress Resp: Effort & Inspection: normal respiratory effort Auscultation: no wheezes Other: Slightly diminished, improving. Cardio: Rate: regular rate Rhythm: regular rhythm Other: Telemetry- SR 99. GI: GI Palp: Yes Soft to palpation Auscultation: normal bowel sounds Other: obese Neuro: Speech: normal speech Extrem: General: pedal edema bilaterally (trace) Psych: Mental Status: mental status grossly normal Affect: normal affect Objective Data Vital Signs Vital Signs: Vital Signs - 24 hr 10/27/24 14:00 10/27/24 14:00 10/27/24 14:10 Temperature 97.3 F L Pulse Rate 86 101 H 88 Respiratory Rate 20 18 20 Blood Pressure 176/76 H Pulse Oximetry 95 Oxygen Delivery Oxygen Flow Rate 10/27/24 15:33 10/27/24 16:00 10/27/24 20:00 Temperature Pulse Rate 87 91 Respiratory Rate 19 Blood Pressure 148/63 H Pulse Oximetry 93 Oxygen Delivery Nasal Cannula Oxygen Flow Rate 2 10/27/24 20:00 10/27/24 20:32 10/27/24 20:34 Temperature Pulse Rate 95 89 Respiratory Rate 20 Blood Pressure Pulse Oximetry 95 Oxygen Delivery Nasal Cannula Oxygen Flow Rate 3 10/27/24 20:44 10/27/24 21:55 10/28/24 00:00 Temperature 97.0 F L Pulse Rate 92 91 93 Respiratory Rate 20 19 Blood Pressure 139/61 Pulse Oximetry 93 Oxygen Delivery Oxygen Flow Rate 10/28/24 01:50 10/28/24 02:00 10/28/24 04:00 Temperature Pulse Rate 98 99 95 Respiratory Rate 20 20 Blood Pressure Pulse Oximetry Oxygen Delivery Oxygen Flow Rate 10/28/24 06:00 10/28/24 07:55 10/28/24 08:00 Temperature 97.0 F L Pulse Rate 91 82 Respiratory Rate 16 Blood Pressure 163/74 H Pulse Oximetry 97 97 Oxygen Delivery Nasal Cannula Oxygen Flow Rate 2 10/28/24 09:41 10/28/24 09:41 10/28/24 09:49 Temperature Pulse Rate 97 97 95 Respiratory Rate 20 20 20 Blood Pressure Pulse Oximetry 96 Oxygen Delivery Nasal Cannula Oxygen Flow Rate 2 10/28/24 11:33 Temperature Pulse Rate Respiratory Rate Blood Pressure Pulse Oximetry Oxygen Delivery Nasal Cannula Oxygen Flow Rate 1 Intake/Output Intake/Output: Intake & Output 10/25/24 10/26/24 10/27/24 10/28/24 23:59 23:59 23:59 23:59 Intake Total 812 861 1571 Balance 134 497 9667 Meds/Results Medications: Active Medications Generic Name Dose Route Start Last Admin Trade Name Freq PRN Reason Stop Dose Admin Acetaminophen 650 mg 10/26/24 13:08 10/28/24 11:20 Acetaminophen 325 Mg Tablet PO 650 mg Q4H PRN Administration Mild Pain (1-3) or Fever Albuterol/Ipratropium 3 ml 10/26/24 14:00 10/28/24 09:40 Ipratropium 0.5 Mg/Albuterol Sulfate 2.5 Mg Ampul.Neb 3 Ml INHALATION 3 ml Q6HRT NIURKA Administration Benzonatate 100 mg 10/26/24 13:17 10/28/24 09:13 Benzonatate 100 Mg Capsule PO 100 mg TID PRN Administration Cough Enoxaparin Sodium 40 mg 10/26/24 13:30 10/28/24 09:16 Enoxaparin 40 Mg/0.4 Ml Syringe SUB-Q 40 mg DAILY NIURKA Administration Guaifenesin 600 mg 10/26/24 21:00 10/28/24 09:13 Guaifenesin 12 Hr 600 Mg Tabcr PO 600 mg Q12HR NIURKA Administration Ceftriaxone Sodium 1 gm in 50 mls @ 100 mls/hr 10/27/24 09:00 10/28/24 09:42 Rocephin 1 Gm/Ns 50 Ml IVPB Infused QAM NIURKA Infusion Azithromycin 500 mg in 250 mls @ 250 mls/hr 10/27/24 09:00 10/28/24 10:12 Zithromax IVPB Infused Q24H NIURKA Infusion Lisinopril 10 mg 10/27/24 09:00 10/28/24 09:13 Lisinopril 10 Mg Tablet PO 10 mg DAILY NIURKA Administration Methylprednisolone Sodium Succinate 60 mg 10/28/24 09:00 10/28/24 09:16 Methylprednisolone Sod Succ 125 Mg Vial IV PUSH 60 mg Q12HR NIURKA Administration Metoclopramide HCl 10 mg 10/26/24 13:18 Metoclopramide Hcl 10 Mg Tablet PO Q6H PRN Nausea And Vomiting Radiology Results: ITS Impressions Chest X-Ray 10/26/24 12:23 IMPRESSION: Prominent bronchovascular markings in the lower lobes which may indicate atelectasis versus pneumonia. Follow-up advised. Labs Labs: Laboratory Results - last 24 hr 10/28/24 05:55 WBC 14.7 H RBC 5.15 Hgb 13.6 Hct 44.7 MCV 86.8 MCH 26.4 MCHC 30.4 L RDW 14.5 Plt Count 353 MPV 9.2 Immature Gran % (Auto) 0.4 Neut % (Auto) 85.7 H Lymph % (Auto) 9.5 L [place] % (Auto) 4.3 Eos % (Auto) 0.0 Baso % (Auto) 0.1 L Lymph # (Auto) 1.39 [place] # (Auto) 0.6 Eos # (Auto) 0.0 Baso # (Auto) 0.0 Abs Immat Gran (auto) 0.06 H Absolute Neuts (auto) 12.6 H Absolute Nucleated RBC 0.000 Nucleated RBC % 0.0 Sodium 140 Potassium 4.3 Chloride 104 Carbon Dioxide 30 Anion Gap 6 BUN 20 H Creatinine 0.65 L Estim Creat Clear Calc Not Reportable Estimated GFR > 60 Glucose 142 H Calcium 8.9 Magnesium 2.1 Total Bilirubin 0.1 L AST 27 ALT 24 Alkaline Phosphatase 78 Total Protein 6.9 Albumin 3.3 L Quality VTE Prophylaxis VTE prophylaxis: pharmacologic ordered
[2024-10-28] MEDS: SALINE 0.65% NAS SOLN 44 ML BTL 1 SPRAY NASAL ×2 (12:55→21:31)
[2024-10-28] MEDS: LORATADINE 5 MG TABLET PO (12:55)
[2024-10-29] VITALS (11 sets, daily range): BP systolic 177–199; BP diastolic 95–96; PULSE 86–100; RESP 16–20; TEMP 36.2–36.4; O2SAT 93–94
[2024-10-29] MEDS: IPRATROPIUM 0.5 MG/ALBUTEROL SULFATE 2.5 MG AMPUL.NEB 3 ML INHALATION ×3 (02:25→14:41)
[2024-10-29 06:03] LABS: Basophils Percent Auto 0.1 % (0.2-1.2); Hematocrit 45.2 % (37.0-47.0); Hemoglobin 13.4 g/dL (12.0-15.0); Immature Granulocyte Absolute 0.07 K/mm3 (0.00-0.031); Immature Granulocyte Percent A 0.7 % (0-0.5); Lymphocytes Absolute Auto 1.58 K/mm3 (0.9-3.2); Lymphocytes Percent Auto 16.2 % (18.3-44.2); Mean Corpuscular HGB Conc 29.6 g/dl (32-36); Mean Corpuscular Volume 87.6 fl (80-100); Mean Platelet Volume 9.1 fl (7.4-10.4); Monocytes Absolute Auto 0.7 K/mm3 (0.1-0.6); Monocytes Percent Auto 6.8 % (2.6-8.5); Neutrophils Absolute Auto 7.4 K/mm3 (1.3-6.7); Neutrophils Percent Auto 76.2 % (45.5-73.1); Platelet Count Result 337 k/mm3 (150-375); Red Blood Count 5.16 M/mm3 (4.2-5.4); Red Cell Distribution Width 14.7 % (11.5-14.5); White Blood Count 9.8 K/mm3 (4.5-10.0)
[2024-10-29 06:28] LABS: Alanine Aminotransferase 35 U/L (6-35); Albumin Level 3.4 g/dL (3.5-5.1); Alkaline Phosphatase 71 U/L (38-126); Anion Gap 5 mmol/L (4-12); Aspartate Amino Transferase 28 U/L (14-36); Bilirubin,Total 0.2 mg/dL (0.2-1.3); Blood Urea Nitrogen 23 mg/dL (7-17); Calcium 8.7 mg/dL (8.4-10.2); Carbon Dioxide 30 mmol/L (22-30); Chloride 104 mmol/L (98-107); Estimated Glomerular Filt Rate > 60; Glucose 134 mg/dL (65-110); Magnesium 2.1 mg/dL (1.6-2.3); Potassium 4.2 mmol/L (3.4-5.0); Sodium 139 mmol/L (137-145); Total Protein 6.6 g/dL (6.3-8.2)
[2024-10-29] MEDS: lisinopriL 10 MG TABLET PO (08:57)
[2024-10-29] MEDS: predniSONE 20 MG TABLET 40 MG PO (08:57)
[2024-10-29] MEDS: ENOXAPARIN 40 MG/0.4 ML SYRINGE SUB-Q (08:57)
[2024-10-29] MEDS: LORATADINE 5 MG TABLET PO (08:57)
[2024-10-29] MEDS: guaiFENesin 12 HR 600 MG TABCR PO (08:57)
[2024-10-29] MEDS: AZITHROMYCIN 500 MG/NS 250 ML 500 MG/250 ML BAG 250 MG IVPB (08:58)
--- NOTE | 2024-10-29 11:48 | PM.DS ---
DS: Admitting Diagnosis Discharge Date 10/29/2024 Admitting Diagnosis Shortness of breath. DS: Discharge Diagnosis Discharge Diagnosis (1) Sepsis: Qualifiers: Sepsis type: sepsis due to unspecified organism Sepsis acute organ dysfunction status: with acute organ dysfunction Severe sepsis acute organ dysfunction type: acute respiratory failure Acute respiratory failure type: with hypoxia Severe sepsis shock status: without septic shock Qualified Code(s): A41.9 - Sepsis, unspecified organism; R65.20 - Severe sepsis without septic shock; J96.01 - Acute respiratory failure with hypoxia Code(s): A41.9 - Sepsis, unspecified organism Status: Acute (2) Acute hypoxemic respiratory failure: Code(s): J96.01 - Acute respiratory failure with hypoxia Status: Acute (3) Community acquired pneumonia: Qualifiers: Laterality: unspecified laterality Qualified Code(s): J18.9 - Pneumonia, unspecified organism Code(s): J18.9 - Pneumonia, unspecified organism Status: Acute (4) Hypertension: Qualifiers: Hypertension type: primary hypertension Qualified Code(s): I10 - Essential (primary) hypertension Code(s): I10 - Essential (primary) hypertension Status: Chronic (5) Morbid obesity with BMI of 50.0-59.9, adult: Code(s): E66.01 - Morbid (severe) obesity due to excess calories; Z68.43 - Body mass index [BMI] 50.0-59.9, adult Status: Acute DS: Summary Hospital Course Hospital Course: Patient is a 64 year old female that presented to the emergency department with shortness of breath. She reported onset of shortness of breath since August. Has been worse in the last 2 weeks. She reports the shortness of breath worsens with exertion/movement and seemed to approve with rest. SOB is accompanied by a productive cough (white/yellow/green sputum), wheezing, and fever. She was previously evaluated at [facility] and was dx with bronchitis/upper respiratory infection. She was placed on a course of doxycycline which she completed in September without improvement in her symptoms. She denies history of smoking, asthma, or COPD. She has been around multiple contacts over the last few months - whooping cough and norovirus were listed specifically but nothing within the last 2 weeks. Initial VS at presentation: 97.5? F, HR 115, RR 28, 197/129, and 80% on room air. Now 100% on 4L nasal cannula. ED workup showed: WBC 12 2, hemoglobin 15.9, INR 1.1, ABG showed CO2 56.3/O2 72.7/HC03 33.7/O2 sat 94.3% on 3L, creatinine 0.62 and GFR >60, lactic 0.9, initial troponin negative, BNP normal for age at 89, procalcitonin 0.1, and UA showed 2+ protein/trace ketones otherwise unremarkable. Viral PCR negative. CXR showed prominent bronchovascular markings in the will lower lobes which may indicate atelectasis versus pneumonia. EKG showed sinus tachycardia, rate 112, LVH previous ST-T change, consider anterior infarct age indeterminate, consider inferior infarct age indeterminate, baseline artifact. When compared to previous EKG, heart rate has increased. Blood cultures no growth to date. Patient responded well to IV Ceftriaxone, neb treatments, incentive spirometer, and steroids. Patient transitioned to oral steroids and oral antibiotics. Received PT/OT. Patient has Albuterol and Breztri inhalers at home but had not been using them. WBC improved to 9.8, normal. Status at Discharge Functional status at discharge: independent ambulation Overall status at discharge: patient is progressing back to baseline Time Spent with Patient Time attestation: Total time spent providing and/or coordinating discharge services: Time spent: Greater than 30 minutes Exam Const: General: comfortable and no acute distress Resp: Effort & Inspection: normal respiratory effort Auscultation: no wheezes Other: Slightly diminished, improving. Cardio: Rate: tachycardic Other: Telemetry- ST 101. GI: GI Palp: Yes Soft to palpation Auscultation: normal bowel sounds Extrem: General: pedal edema Psych: Mental Status: mental status grossly normal Affect: normal affect DS: Data Data Completed and Pending Labs on day of discharge: Labs from last 24 hours 10/29/24 05:56 WBC 9.8 RBC 5.16 Hgb 13.4 Hct 45.2 MCV 87.6 MCH 26.0 MCHC 29.6 L RDW 14.7 H Plt Count 337 MPV 9.1 Immature Gran % (Auto) 0.7 H Neut % (Auto) 76.2 H Lymph % (Auto) 16.2 L [place] % (Auto) 6.8 Eos % (Auto) 0.0 Baso % (Auto) 0.1 L Lymph # (Auto) 1.58 [place] # (Auto) 0.7 H Eos # (Auto) 0.0 Baso # (Auto) 0.0 Abs Immat Gran (auto) 0.07 H Absolute Neuts (auto) 7.4 H Absolute Nucleated RBC 0.000 Nucleated RBC % 0.0 Sodium 139 Potassium 4.2 Chloride 104 Carbon Dioxide 30 Anion Gap 5 BUN 23 H Creatinine 0.73 Estim Creat Clear Calc Not Reportable Estimated GFR > 60 Glucose 134 H Calcium 8.7 Magnesium 2.1 Total Bilirubin 0.2 AST 28 ALT 35 Alkaline Phosphatase 71 Total Protein 6.6 Albumin 3.4 L Preliminary micro results at discharge 10/26/24 12:11 Blood Culture - Preliminary Blood 10/26/24 11:43 Blood Culture - Preliminary Blood Discharge Plan Discharge Attending physician on discharge: Asad Blanco Consulting providers: [place] Discharging Clinician: Batsheva Nevarez Anticipated Discharge Date/Time: 10/29/24 11:58 Patient Disposition: Home Activity: may shower and as tolerated Diet: heart healthy Discharge Instructions: Complete all doses of antibiotics. Report to provider if you develop shortness of breath that is not improved with rest or temp >101. Use incentive spirometer 6 x/ hour at least 4 times a day. Thank you for entrusting [facility] with your healthcare! Patient Instructions: Antibiotic Form, How to Use an Incentive Spirometer (DC), Heart Healthy Diet (DC), Community Acquired Pneumonia (DC) Patient Language: Tuvaluan Stand Alone Forms: General Discharge Information Follow-up/Referrals: Kenia,MD Guido [Non-Staff] - 1 Week Discharge Medications: New prednisone 20 mg Tablet 40 mg PO DAILY@0800 Qty: 6 0RF Saline Mist 0.65 % Aerosol,Flushing 1 spray intranasal Q6HR PRN (Reason: Congestion) Qty: 45 0RF guaifenesin [Mucus Relief ER] 600 mg Tablet Extended Release 12hr 600 mg PO Q12HR Qty: 14 0RF amoxicillin-pot clavulanate 875-125 mg tablet 1 tablet PO Q12H Qty: 2 0RF Rx Instructions: Start on 10/30/2024 azithromycin 500 mg tablet 500 mg PO DAILY Qty: 1 0RF Rx Instructions: Take dose on 10/30/2024, this is your last dose. Continued lisinopril 20 mg tablet 10 mg PO DAILY Date of admission: 10/26/24 14:55 Primary Care Provider: PHYSICIAN,[employer] Admitting Provider: Asad Blanco Attending physician on admission: Asad Blanco Condition: Stable Hospitalist MIPS Heart Failure (Exclusion) Patient has history of Heart Transplant or Left Ventricular Assistive Device?: No IF YES, STOP HERE Heart Failure (Qualifier) Patient has current or prior documentation of LVEF less than or equal to 40%, or mod/servere depressed LVSF?: No IF NO, STOP HERE
--- NOTE | 2024-11-01 08:22 | P.CDI_ITS ---
<Statement entered by Batsheva Nevarez, TIME CLOCK MECHANIC - 11/01/24 09:01> This documentation has been reviewed and approved. meets SIRS criteria on admission: HR, RR, +hypoxia, no current indication of shock. CDI Query Clarification Request Please clarify if sepsis has been ruled in or ruled out The medical chart reflects the following: Patient is a 64 year old female that presented to the emergency department with shortness of breath. She reported onset of shortness of breath since August. Has been worse in the last 2 weeks. She reports the shortness of breath worsens with exertion/movement and seemed to approve with rest. SOB is accompanied by a productive cough (white/yellow/green sputum), wheezing, and fever. She was previously evaluated at [facility] and was dx with bronchitis/upper respiratory infection. She was placed on a course of doxycycline which she completed in September without improvement in her symptoms. She denies history of smoking, asthma, or COPD. She has been around multiple contacts over the last few months - whooping cough and norovirus were listed specifically but nothing within the last 2 weeks. Initial VS at presentation: 97.5? F, HR 115, RR 28, 197/129, and 80% on room air. Now 100% on 4L nasal cannula. ED workup showed: WBC 12 2, hemoglobin 15.9, INR 1.1, ABG showed CO2 56.3/O2 72.7/HC03 33.7/O2 sat 94.3% on 3L, creatinine 0.62 and GFR >60, lactic 0.9, initial troponin negative, BNP normal for age at 462, procalcitonin 0.1, and UA showed 2+ protein/trace ketones otherwise unremarkable. Viral PCR negative. CXR showed prominent bronchovascular markings in the will lower lobes which may indicate atelectasis versus pneumonia. EKG showed sinus tachycardia, rate 112, LVH previous ST-T change, consider anterior infarct age indeterminate, consider inferior infarct age indeterminate, baseline artifact. When compared to previous EKG, heart rate has increased. Blood cultures no growth to date. Patient responded well to IV Ceftriaxone, neb treatments, incentive spirometer, and steroids. Patient transitioned to oral steroids and oral antibiotics. Received PT/OT. Patient has Albuterol and Breztri inhalers at home but had not been using them. WBC improved to 9.8, normal. (1) Sepsis: Qualifiers: Sepsis type: sepsis due to unspecified organism Sepsis acute organ dysfunction status: with acute organ dysfunction Severe sepsis acute organ dysfunction type: acute respiratory failure Acute respiratory failure type: with hypoxia Severe sepsis shock status: without septic shock Qualified Code(s): A41.9 - Sepsis, unspecified organism; R65.20 - Severe sepsis without septic shock; J96.01 - Acute respiratory failure with hypoxia Code(s): A41.9 - Sepsis, unspecified organism Status: Acute lood Culture Final 11/01/24 Q SOURCE: BLOOD STATUS: FINAL RESULT: No growth after 5 days Aerobic and anaerobic bottle received. IV abx
== END 2024-10-29 15:50 | disposition home or self-care (01) | DRG 871 ==
LOC: ANHED 13:09 → ANH3MEDSUR 14:10
PROVIDERS: Student in an Organized Health Care Education/Training Program; Admitting Provider General Practice; Emergency Provider Emergency Medicine; Visit Provider Nurse Practitioner Family
DX: A41.9 Sepsis, unspecified organism (principal); J18.9 Pneumonia, unspecified organism; J96.01 Acute respiratory failure with hypoxia; Z68.43 Body mass index [BMI] 50.0-59.9, adult; E66.01 Morbid (severe) obesity due to excess calories; I10 Essential (primary) hypertension; R65.20 Severe sepsis without septic shock; Z90.49 Acquired absence of other specified parts of digestive tract
CPT/HCPCS: 36415; 36600; 71045; 80053; 81001; 82805; 83605; 83735; 83880; 84145; 84484; 85018; 85025; 85610; 85730; 87040; 87637; 93005; 94640; 96365; 96367; 96375; 97161; 97165; 99285; A9270; G0378; J0456; J0696; J1650; J2919; J7120; J7512

== ENCOUNTER 2024-12-12 14:58 | Inpatient (IN) | payer MEDICARE, SELFPAY ==
[2024-12-12] VITALS (11 sets, daily range): BP systolic 109–189; BP diastolic 70–113; PULSE 112–128; RESP 20–28; TEMP 37; O2SAT 89–100
--- NOTE | ~2024-12-12 | XR_ITS ---
EXAMINATION: XR chest 2V Exam Date/Time: 12/12/2024 15:31 CDT HISTORY: sob, wheezing Comparison: 10/26/2024. RESULT: Lines, tubes, and devices: None. Lungs and pleura: Clear. Granulomatous calcifications. Cardiomediastinal silhouette: Stable. Calcified nodes. Other: No acute osseous or upper abdominal finding. IMPRESSION: No acute cardiopulmonary process. Reviewed, dictated and finalized at location K.
--- NOTE | ~2024-12-12 | CT_ITS ---
EXAMINATION: CTA chest PE protocol DATE: 12/12/2024 18:37 INDICATION: hypoxia, tachy, recent hospitalization TECHNIQUE: Computed tomography angiography (CTA) of the chest was performed with 100 mL Omnipaque-350 intravenous contrast timed to evaluate the pulmonary arteries. Coronal maximum intensity projection 3D-reconstructions were created by the technologist. The dose-length product (DLP) was 961.79 mGy-cm. Automated exposure control and iterative reconstruction technique were employed. COMPARISON: None. FINDINGS: Lung parenchyma and airways: Considerable motion artifact. Calcified right lower lobe granuloma. Subs egmental areas of peribronchovascular consolidation and groundglass in the bilateral upper lobes. Pleura: Unremarkable. Thoracic inlet, axillae and chest wall: Unremarkable. Thoracic aorta: No significant dilation. No dissection. Minimal arch calcification. Mediastinum: Dilated central pulmonary arteries. Calcified nodes. Heart and pericardium: Normal. Coronary artery calcifications: Absent. Upper abdomen: Cholelithiasis, without inflammatory change. Small hiatal hernia. Mild bilateral renal cortical thinning and scarring. Bones: No acute osseous finding. Pulmonary arteries: Study quality: Significant motion artifact, beam hardening, and quantum mottle li mits this study. Nondiagnostic imaging of the subsegmental pulmonary arteries. No central or definite segmental pulmonary emboli detected. IMPRESSION: Limited examination. No central embolus. No definite segmental embolus noting that evaluation is some what limited. Nondiagnostic imaging of the subsegmental pulmonary arteries. Upper lobe opacities may represent edema or infection. Reviewed, dictated and finalized at location K. IMPRESSION: Limited examination. No central embolus. No definite segmental embolus noting t hat evaluation is somewhat limited. Nondiagnostic imaging of the subsegmental p ulmonary arteries. Upper lobe opacities may represent edema or infection.
--- NOTE | ~2024-12-12 | CT_ITS ---
EXAMINATION: CT sinus wo con DATE: 12/13/2024 23:17 INDICATION: Deviated nasal septum TECHNIQUE: Computed tomography (CT) of the paranasal sinuses was performed without intravenous contra st. The dose-length product was 222.52 mGy-cm. Automated exposure control and iterative reconstructio n technique were employed. COMPARISON: None FINDINGS: There is mucosal thickening of the paranasal sinuses. No mucoperiosteal reaction. Leftward nasal septal deviation. Ostiomeatal units are occluded by soft tissue. Mastoids are pneumatized. IMPRESSION: 1. Moderate pansinus disease. Reviewed, dictated and finalized at location A.
--- OUTSIDE RECORDS SUMMARY | 2024-12-12 15:01 | XMS_ITS | Referral Summary ---
Author Organization [facility] Address [address] [place] [phone] Care Team Providers Care Bone Crusher Name Role Phone Magali Jon NP Primary Care Provider Encounters Date Type Department Care Team Description 12/06/2024 Results Follow-Up [facility] Medical [facility] Primary Care at [address] [phone] Magali Jon NP Hepatitis C antibody Blood, Hepatitis B Surface Antigen Blood, Hepatitis B core antibody, total Blood, Hepatitis B surface antibody (immune status) Blood 12/03/2024 11:50 AM CDT Lab [facility] Outpatient Lab - Outpatient Center at [address] [id number] Encounter for hepatitis C screening test for low risk patient; Need for hepatitis B screening test; Screening for diabetes mellitus; Subclinical hypothyroidism; Mixed hyperlipidemia; Benign hypertension 12/03/2024 11:00 AM CDT Office Visit [facility] Primary Care at [address] [phone] Magali Jon NP Chronic maxillary sinusitis (Primary Dx); Acquired deviated nasal septum; Wheezing; Pneumonia of both lungs due to infectious organism, unspecified part of lung; Benign hypertension; Class 3 severe obesity due to excess calories with serious comorbidity and body mass index (BMI) of 50.0 to 59.9 in adult; Prediabetes 11/08/2024 Telephone [facility] Primary Care at [address] [phone] Magali Jon NP BETHNAY Questions 10/26/2024 9:50 AM CDT - 10/26/2024 11:59 PM CDT Hospital Encounter [facility] Discharge Disposition: Discharge to home or self care 09/21/2024 Telephone [facility] Primary Care at [address] [phone] Magali Jon NP Recommendation Request; Medical Question/Miscellaneous 09/21/2024 10:30 AM CDT Office Visit [facility] Primary Care at [address] [phone] Magali Jon NP Wheezing (Primary Dx); Class 3 severe obesity due to excess calories with serious comorbidity and body mass index (BMI) of 50.0 to 59.9 in adult; Benign hypertension; Mixed hyperlipidemia; Vitamin D deficiency; Subclinical hypothyroidism; Prediabetes; Screening for diabetes mellitus; Need for hepatitis B screening test; Encounter for hepatitis C screening test for low risk patient; Colon cancer screening from Last 3 Months Medications lisinopriL (PRINIVIL,ZEST RIL) 10 mg tablet Take 1 tablet (10 mg total) by mouth daily 30 tablet 1 5 Active sodium chloride 3 % mist Administer 1 spray into affected nostril(s) 3 (three) times a day Active amoxicillin-cl avulanate (AUGMENTIN) 875-125 mg per tabletIndicati ons:Chronic maxillary sinusitis,Whee zing Take 1 tablet by mouth 2 (two) times a day for 10 days 20 tablet 5 12/14/19 25 Active albuterol HFA (PROVENTIL HFA,VENTOLIN HFA,PROAIR HFA) 90 mcg/actuation inhaler Inhale 2 puffs every 4 (four) hours as needed for wheezing 18 g 1 5 12/04/19 25 Discontinu ed(Patient Reported) cholecalcifero l (Vitamin D3) 2000 unit capsule Take 1 capsule (2,000 Units total) by mouth daily 5 12/04/19 Discontinu ed(Patient Reported) ascorbic acid (ascorbic acid with jim hips) 500 mg tablet,chewabl e Take 1 tablet/chew tab (500 mg total) by mouth daily 12/04/19 Discontinu ed(Patient Reported) multivitamin tabletIndicati ons:Vitamin Deficiency Prevention Take 1 tablet by mouth daily 12/04/19 Discontinu ed(Patient Reported) budesonide-for moteroL (SYMBICORT) 160-4.5 mcg/actuation inhalerIndicat ions:Wheezing Inhale 2 puffs 2 (two) times a day Rinse mouth with water after use. Do not swallow. 1 each 2 5 12/04/19 Discontinu ed(Patient Reported) Active Problems Problem Noted Date Diagnosed Date Chronic sinusitis 12/03/2024 Acquired deviated nasal septum 12/03/2024 Wheezing 12/03/2024 Pneumonia of both lungs due to infectious organi sm 12/03/2024 Prediabetes 09/22/2024 Assessment & Plan (09/22/2024 8:44 [...] for wheezing. I discussed patient seeing an kinesiotherapist, but her sister would like to just do the labs instead of having to go to a specialist visit. 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 Patient is aware of long-term risks posed by chronic hydronephrosis and hydroureter. Check metabolic panel next week for renal function. Leukocytosis 05/09/2020 Assessment & Plan (05/09/2020 5:00 PM HAZARDOUS MATERIALS TANKER DRIVER): Repeat CBC next week to ensure normalization [...] fall prevention, proper nutrition, and suggested joining [facility] to accomplish most of these goals. Patient [...] loss. Assessment & Plan (05/09/2020 5:00 PM HAZARDOUS MATERIALS TANKER DRIVER): Remains well controlled at home and there [...] fall prevention, proper nutrition, and suggested joining [facility] to accomplish most of these goals. Patient [...] on file Legal Sex Female 2:38 PM HAZARDOUS MATERIALS TANKER DRIVER Gender Identity Not on file Sexual Orientation Not on file Last Filed Vital Signs Vital Sign Reading Time Taken Comments Blood Pressure 148/86 12/03/2024 11:27 AM CDT Pulse 92 12/03/2024 11:02 AM CDT Temperature 36.4 C (97.5 F) 12/03/2024 11:02 AM CDT Respiratory Rate 20 12/03/2024 11:02 AM CDT Oxygen Saturation 95% 12/03/2024 11:02 AM CDT Inhaled Oxygen Concentration - - Weight 118.4 kg (261 lb) 12/03/2024 11:02 AM CDT Height 149.9 cm (4' 11) 12/03/2024 11:02 AM CDT Body Mass Index 52.72 12/03/2024 11:02 AM CDT Plan of Treatment Not on file Procedures Procedure Name Priority Date/Time Associated Diagnosis Comments HEPATITIS B SURFACE ANTIBODY (IMMUNE STATUS) Routine 12/03/2024 11:44 AM CDT Need for hepatitis B screening test HEPATITIS B CORE ANTIBODY, TOTAL Routine 12/03/2024 11:44 AM CDT Need for hepatitis B screening test HEPATITIS B SURFACE ANTIGEN Routine 12/03/2024 11:44 AM CDT Need for hepatitis B screening test HEPATITIS C ANTIBODY Routine 12/03/2024 11:44 AM CDT Encounter for hepatitis C screening test for low risk patient STOOL DNA COLOGUARD Routine 07/14/2019 Screening for malignant neoplasm of the rectum Special screening for malignant neoplasms, colon DIAGNOSTIC MAMMOGRAM BILATERAL W WILMER Routine 08/06/2016 7:29 PM CDT HM DEXA SCAN Routine 10/02/2011 from Last 3 Months or Most Recently Relevant to Health Maintenance Results * Hepatitis C antibody Blood (12/03/2024 11:44 AM CDT) Hep C Ab Nonreactive Nonreactive Comment: Interpretive Data Nonreactive: Antibodies to HCV not detected. Does NOT exclude the possibility of recent exposure to HCV. Equivocal: Equivocal for HCV antibodies. Supplemental molecular testing will be automatically performed to determine infection status in accordance with current CDC screening recommendations. Reactive: Positive for HCV antibodies. This may represent current or past HCV infection. Supplemental molecular testing will be automatically performed to determine current infection status in accordance with current CDC screening recommendations. Interpretive data was last revised on 2019. Testing performed by: [facility], [address] [place] [address]., [id number] Blood 12/03/2024 11:4 4 AM CDT 12/03/2024 4:36 PM CDT Magali Jon LAB MICROBIOLOGY - GENE RAL ORDERABLES Final Result Performing Organization Address City/[facility]/ZIP Co de Phone Number [facility] [address] [facility] Department [place] [employer] [place] [address] * Hepatitis B core antibody, total Blood (12/03/2024 11:44 AM CDT) Pathologist [facility] Hep B core IgG/IgM Nonreactive Nonreactive Comment:Testing performed by : [facility], [address] [place] [address]., [id number] Blood 12/03/2024 11:4 4 AM CDT 12/04/2024 9:53 AM CDT Magali Jon NP LAB MICROBIOLOGY - GENE RAL ORDERABLES Final Result [facility] [address] [facility] Department [place] [employer] [place] [place] [address] * Hepatitis B surface antibody (immune status) Blood (12/03/2024 11:44 AM CDT) Pathologist [facility] HBsAb (immune status) Nonreactive Comment: Interpretive Data Nonreactive: This result is consistent with a lack of immunity to Hepatitis B Virus when used in the setting of routine screening. Equivocal: The immune status of the individual should be further assessed, if appropriate, after consideration of clinical status, risk factors, and additional diagnostic information. Reactive: This result is consistent with immunity to Hepatitis B Virus when used in the setting of routine screening. Current interpretive data was last revised on 19. Testing performed by: [facility], [address] [place] [address]., [id number] Blood 12/03/2024 11:4 4 AM CDT 12/03/2024 4:36 PM CDT Magali Jon MOTORCYCLE SUBASSEMBLER LAB MICROBIOLOGY - GENE RAL ORDERABLES Final Result Performing Organization Address [facility] Co de Phone Number LICHA [address] [facility] Department [employer] [place] [address] * Hepatitis B Surface Antigen Blood (12/03/2024 11:44 AM CDT) HepBsAg Nonreactive Nonreactive Comment:Testing performed by : [facility], [address] [place] [address]., [id number] Blood 12/03/2024 11:4 4 AM CDT 12/03/2024 4:36 PM CDT Magali Jon NP LAB MICROBIOLOGY - GENE RAL ORDERABLES Final Result Performing Organization Address [facility] de Phone Number LICHA [address] [facility] [place] [address] * Stool DNA - Cologuard (07/14/2019) Scribed Stool DNA - Cologuard Negative [facility] Stool 07/14/2019 Sanjiv Conte MD LAB BODY FLUIDS AND STOOLS O RDERABLES Final Result Performing Organization Address [facility] Co de Phone Number [facility] * Diagnostic Mammogram Bilateral W Wilmer (08/06/2016 7:29 PM CDT) Anatomical Region Laterality Modality Breast Bilateral Mammography 08/06/2016 7:29 PM CDT Narrative 08/06/2016 7:29 PM CDT SCREENING MAMM W WILMER BI Acc#: [id number] DATE OF EXAM: Aug 06 2016 CLINICAL HISTORY: Screening. Performed by: [facility] RESULT: Craniocaudal and mediolateral oblique views to [...] on: Aug 06 2016 2:29P Transcribed by: [facility] On: Aug 06 2016 4:05P Approved Electronically by: CARMELO Lovett, DR OTERO on: Aug 06 2016 7:55P Attending: DR SANJIV CONTE Requesting: DR SANJIV CONTE Requesting Attending Attending ID: [id number] Requesting ID: [id number] Report To 1 ID: [id number] Report To 1 Name: DR SANJIV CONTE Report To 1 FAX: [phone] NextGen Order #: Procedure Note Miscellaneous, Notinfile / Provider, MD Richard - 10/02/2016 SCREENING MAMM W WILMER BI Acc#: [id number] DATE OF EXAM: Aug 06 2016 CLINICAL HISTORY: Screening. Performed by: [facility] RESULT: Craniocaudal and mediolateral oblique views to [...] Read on: Aug 06 20162:29P Transcribed by: denise On: Aug 06 2016 4:05P Approved Electronically by: CARMELO Lovett, DR OTERO on: Aug 06 20167:55P Attending: DR SANJIV CONTE Requesting: DR SANJIV CONTE Requesting Attending Attending ID: [id number] Requesting ID: [id number] Report To 1 ID: [id number] Report To 1 Name: DR SANJIV CONTE Report To 1 FAX: [phone] NextGen Order #: us Not In File Miscellaneous IMG MAMMO PROCEDURES F inal Result * DEXA SCAN (10/02/2011) DEXA Scan Normal us Historical Provider HEALTH MAINTENANCE Final Result from Last 3 Months or Most Recently Relevant to Health Maintenance Insurance MEDICARE MEDICARE MEDICARE Care Teams Bone Crusher Relationship Specialty Start Date End Date Magali Jon NP [address] [place] [address] PCP - General Nurse Practitioner 09/21/24
--- OUTSIDE RECORDS SUMMARY | 2024-12-12 15:01 | XMS_ITS | Encounter Summary ---
Author Organization [facility] Healthcare Address [address] [place] [address] Care Team Providers Care Senior Technologist Name Role Phone Magali Jon NP Primary Care Provider Encounter Details Date Type Department Care Team (Late st Contact Info) Description 12/06/2024 Results Follow-Up [facility] Primary Care at [address] [place] [address] Magali Jon NP [address] [place] [address] Hepatitis C antibody Blood, Hepatitis B Surface Antigen Blood, Hepatitis B core antibody, total Blood, Hepatitis B surface antibody (immune status) Blood Social History Tobacco Use Types Packs/Day Years [...] on file Legal Sex Female 2:38 PM SEXER Gender Identity Not on file Sexual Orientation Not on file documented as of this encounter Plan of Treatment Not on file documented as of this encounter Visit Diagnoses Not on filedocumented in this encounter Care Teams Senior Technologist Relationship Specialty Start Date End Date Magali Jon NP [address] [address] PCP - General Nurse Practitioner 09/21/24 documented as of this encounter
--- OUTSIDE RECORDS SUMMARY | 2024-12-12 15:01 | XMS_ITS | Clinical Summary ---
Author Organization [facility] Address [address] [place] [phone] Care Team Providers Care Tank Charger Name Role Phone DanayMagali schwab JOSÉ Primary Care Provider Medications lisinopriL (PRINIVIL,ZEST RIL) 10 mg tablet [...] Units total) by mouth daily 5 12/04/19 25 Discontinu ed(Patient Reported) ascorbic acid (ascorbic acid with jim hips) 500 mg tablet,chewabl e Take 1 tablet/chew tab (500 mg total) by mouth daily 12/04/19 25 Discontinu ed(Patient Reported) multivitamin tabletIndicati ons:Vitamin Deficiency [...] for wheezing. I discussed patient seeing an procurement professional logistics, but her sister would like to just do the labs instead of having to go to a specialist visit. Hydronephrosis 05/09/2020 Assessment & Plan (05/09/2020 4:59 PM ARTIST'S MANAGER): Could certainly have been due to a stone but without seeing this on her CT scan will refer to urology for further evaluation. Patient is aware of long-term risks posed by chronic hydronephrosis and hydroureter. Check metabolic panel next week for renal function. Leukocytosis 05/09/2020 Assessment & Plan (05/09/2020 5:00 PM ARTIST'S MANAGER): Repeat CBC next week to ensure normalization [...] fall prevention, proper nutrition, and suggested joining [facility] to accomplish most of these goals. Patient [...] loss. Assessment & Plan (05/09/2020 5:00 PM ARTIST'S MANAGER): Remains well controlled at home and there [...] Department Care Team Description 12/06/2024 Results Follow-Up [facility] Primary Care at [address] [phone] Magali Jon NP Hepatitis C antibody Blood, Hepatitis B Surface Antigen Blood, Hepatitis B core antibody, total Blood, Hepatitis B surface antibody (immune status) Blood 12/03/2024 11:50 AM CDT Lab [facility] Outpatient Lab - Outpatient Center at [address] [address] Encounter for hepatitis C screening test for low risk patient; Need for hepatitis B screening test; Screening for diabetes mellitus; Subclinical hypothyroidism; Mixed hyperlipidemia; Benign hypertension 12/03/2024 11:00 AM CDT Office Visit [facility] Primary Care at [address] [phone] Magali Jon NP Chronic maxillary sinusitis (Primary Dx); Acquired deviated nasal septum; Wheezing; Pneumonia of both lungs due to infectious organism, unspecified part of lung; Benign hypertension; Class 3 severe obesity due to excess calories with serious comorbidity and body mass index (BMI) of 50.0 to 59.9 in adult; Prediabetes 11/08/2024 Telephone [facility] Primary Care at [address] [phone] Magali Jon NP BETHANY Questions 10/26/2024 9:50 AM CDT - 10/26/2024 11:59 PM CDT Hospital Encounter [facility] Discharge Disposition: Discharge to home or self care 09/21/2024 10:30 AM CDT Office Visit [facility] Primary Care at [address] [phone] Magali Jon NP Wheezing (Primary Dx); Class 3 severe obesity due to excess calories with serious comorbidity and body mass index (BMI) of 50.0 to 59.9 in adult; Benign hypertension; Mixed hyperlipidemia; Vitamin D deficiency; Subclinical hypothyroidism; Prediabetes; Screening for diabetes mellitus; Need for hepatitis B screening test; Encounter for hepatitis C screening test for low risk patient; Colon cancer screening 09/21/[address] [facility] Medical [facility] Primary Care at [address] [phone] Magali Jon NP Recommendation Request; Medical Question/Miscellaneous from Last 3 Months Immunizations Immunization Administration [...] on file Legal Sex Female 2:38 PM ARTIST'S MANAGER Gender Identity Not on file Sexual Orientation [...] 12/03/2024 11:02 AM CDT Plan of Treatment Health Maintenance Due Date Last Done Comments Pneumococcal vaccine 65+ (1 of 1 - PCV) 2008 Zoster Vaccine (1 of 2) 2008 Colon Cancer Screening-DNA Stool 07/13/2022 07/14/2019, 12/25/2015, 12/25/2015, Additional history exists Well Visit 65+ 2023 01/24/2020, 01/10, 01/01/2018, Additional history exists Influenza Vaccine (#1) 2025 Breast Cancer Screening-Mammogram 06/29/2025 08/06/2016, 10/01/2012 [...] - Td or Tdap) 10/21/2033 10/22/2023, 08/10/2010 Hepatitis B Screening Completed 12/03/2024 Hepatitis C Screening Completed 12/03/2024 Procedures Procedure Name Priority Date/Time Associated Diagnosis [...] last revised on 2019. Testing performed by: [facility], [address] [place] [address]., [id number] Blood 12/03/2024 11:4 4 AM CDT 12/03/2024 4:36 PM CDT Magali Jon NP LAB MICROBIOLOGY - GENE RAL ORDERABLES Final Result Performing Organization Address City/[facility]/ZIP Co de Phone Number LICHA PLAZA [address] [employer] [place] [address] * Hepatitis B core antibody, total Blood (12/03/2024 11:44 AM CDT) Hep B core IgG/IgM Nonreactive Nonreactive Comment:Testing performed by : [facility], [address] [place] [address]., [address] Blood 12/03/2024 11:4 4 AM CDT 12/04/2024 9:53 AM CDT Magali Jon NP LAB MICROBIOLOGY - GENE RAL ORDERABLES Final Result LICHA [place] [address] Department [place] [employer] [place] [address] * Hepatitis B surface antibody (immune status) Blood (12/03/2024 11:44 AM CDT) HBsAb (immune status) Nonreactive Comment: Interpretive Data [...] last revised on 19. Testing performed by: [facility], [address] [place] [address]., [id number] Blood 12/03/2024 11:4 4 AM CDT 12/03/2024 4:36 PM CDT Magali Jon CEMENT CONVEYOR OPERATOR LAB MICROBIOLOGY - GENE RAL ORDERABLES Final Result Performing Organization Address [facility] Co de Phone Number MA[address] [employer] [place] [address] * Hepatitis B Surface Antigen Blood (12/03/2024 11:44 AM CDT) HepBsAg Nonreactive Nonreactive Comment:Testing performed by : [facility], [address] [place] [address]., [address] Blood 12/03/2024 11:4 4 AM CDT 12/03/2024 4:36 PM CDT Magali Jon CEMENT CONVEYOR OPERATOR LAB MICROBIOLOGY - GENE RAL ORDERABLES Final Result Performing Organization Address [facility] de Phone Number [place] [id number] [facility] [place] [address] * Stool DNA - Cologuard (07/14/2019) Scribed Stool DNA - Cologuard Negative [facility] Stool 07/14/2019 Sanjiv Conte MD LAB BODY FLUIDS AND STOOLS O RDERABLES Final Result Performing Organization Address [facility] de Phone Number [facility] * Diagnostic Mammogram Bilateral W Wilmer (08/06/2016 7:29 PM CDT) Anatomical Region Laterality Modality Breast Bilateral Mammography 08/06/2016 7:29 PM CDT Narrative 08/06/2016 7:29 PM CDT SCREENING MAMM W WILMER BI Acc#: [id number] DATE OF EXAM: Aug 06 2016 CLINICAL HISTORY: Screening. Performed by: [facility] RESULT: Craniocaudal and mediolateral oblique views [...] on: Aug 06 2016 2:29P Transcribed by: [facility] On: Aug 06 2016 4:05P Approved Electronically by: DR SHANNA RHODES M.D. on: Aug 06 2016 7:55P Attending: DR SANJIV CONTE Requesting: DR SANJIV CONTE Requesting Attending Attending ID: [id number] Requesting ID: [id number] Report To 1 ID: [id number] Report To 1 Name: DR SANJIV CONTE Report To 1 FAX: [phone] NextGen Order #: Procedure Note Miscellaneous, Notinfile / Provider, MD Richard - 10/02/2016 SCREENING MAMM W WILMER BI Acc#: [id number] DATE OF EXAM: Aug 06 2016 CLINICAL HISTORY: Screening. Performed by: [facility] RESULT: Craniocaudal and mediolateral oblique views [...] CARMELO Lovett, DR HURT on: Aug 06 [address]:55P Attending: DR SANJIV CONTE Requesting: DR SANJIV CONTE Requesting Attending Attending ID: [id number] Requesting ID: [id number] Report To 1 ID: [id number] Report To 1 Name: DR SANJIV CONTE Report To 1 FAX: [phone] NextGen Order #: us Not In File Miscellaneous IMG MAMMO PROCEDURES F inal Result * DEXA SCAN (10/02/2011) DEXA Scan Normal us Historical Provider HEALTH MAINTENANCE Final Result from Last 3 Months or Most Recently Relevant to Health Maintenance Insurance MEDICARE MEDICARE MEDICARE Care Teams Tank Charger Relationship Specialty Start Date End Date Magali Jon NP [address] [facility] [address] [place] [address] PCP - General Nurse Practitioner 09/21/24
--- NOTE | 2024-12-12 15:12 | ECG_ITS ---
Test Date: 2024-12-12 15:22:49 Measurements Intervals [place] Rate: 120 P: 49 [place]: 170 QRS: 36 QRSD: 69 T: 79 QT: 281 QTc: 398 Interpretive Statements SINUS TACHYCARDIA NONSPECIFIC ST-T WAVE ABNORMALITY- HIGH LATERAL LEADS BASELINE ARTIFACT- I, II, III, AVR, AVL, AVF, V1 ABNORMAL ECG Compared to ECG 10/26/2024 11:20:58 NO SIGNIFICANT CHANGE Electronically Signed On 12-12-2024 16:23:17 CDT by Faraz Blancas D.O.
--- NOTE | 2024-12-12 15:58 | ED_ITS ---
HPI - SOB/Dyspnea General Chief Complaint: Shortness of Breath/Dyspnea Stated Complaint: sob, wheezing Time Seen by Provider: 12/12/24 15:32 History of Present Illness HPI Narrative: 64-year-old female with history of morbid obesity, hypertension, nasal polyps. She presents to the emergency depart with shortness of breath, difficulty breathing and hypoxia. She was recently discharged from the hospital in October for hypoxic respiratory failure requiring oxygen and community-acquired pneumonia requiring antibiotics. She had sepsis without septic shock. Patient was doing well since discharge but for last few days has been having recurrence of her difficulty breathing and which she describes as diffuse wheezing. No history of asthma or COPD and denies any smoking. Denies any cardiac history such as heart failure or any thromboembolic disease such as DVT or PE. No fever or chills. Was otherwise in her normal state of health. Patient denies any chest pain, increased leg swelling, fever chills. No abdominal pain or back pain. Endorses wheezing and difficulty breathing especially through her nose and difficulty lying flat. Related Data Home Medications ?Medication ?Instructions ?Recorded ?Confirmed ?Last Taken ?Type lisinopril 20 mg tablet 10 mg PO DAILY 10/26/24 10/26/24 Unknown History Allergies Allergy/AdvReac Type Severity Reaction Status Date / Time No Known Allergies Allergy Verified 10/26/24 15:55 Review of Systems 2 Review of Systems: As reviewed [facility] Past Medical History Medical History Hypertension Maxillary sinus polyp Surgical History Surgical History H/O: hysterectomy History of appendectomy Family History Family History Other Hypertension Social History Social History Smoking status: Never smoker Alcohol intake: never Substance use: never Do You Feel Safe in your Home?: Yes Lack of Transportation: No Lack of Food: Never True Current Housing: I Have Housing Concerned About Future Housing: No Difficulty Paying Gas/Electric Bills: No Difficulty Paying for Meds: No Currently Unemployed: No Education: High School Diploma/GED Difficulty w/ Childcare or Family Care: No Spiritual care concerns: No Exam 2 Narrative: GENERAL: Ill-appearing in respiratory distress with dyspnea HEAD: [Normocephalic, atraumatic.] EYES: [PERRLA and EOMI.] ENT: Nares clear, no rhinorrhea or epistaxis. Mucous membranes moist. NECK: Supple. CHEST: Diffuse end-expiratory wheezing, tachypnea, no retractions or decreased air entry. HEART: [Regular rate and rhythm]. No murmur heard. [Normal peripheral pulses.] ABDOMEN: [Soft, nondistended], large pannus, nontender, [No rigidity or guarding] EXTREMITIES: Normal range of motion. [No edema.] SKIN: Warm, dry, no rash. NEURO: [No focal deficits]. Alert and oriented [x3.] PSYCH: [Normal mood and affect.] Course Vital Signs Vital signs: Vital Signs Temperature 37.0 C 12/12/24 15:02 Pulse Rate 118 H 12/12/24 15:02 Respiratory Rate 24 H 12/12/24 15:02 Blood Pressure 189/113 H 12/12/24 15:02 Pulse Oximetry 89 L 12/12/24 15:02 Oxygen Delivery Room Air 12/12/24 15:02 Temperature 37.0 C 12/12/24 15:02 Pulse Rate 128 H 12/12/24 17:10 Respiratory Rate 21 H 12/12/24 17:10 Blood Pressure 145/92 H 12/12/24 17:10 Pulse Oximetry 100 12/12/24 17:10 Oxygen Delivery Nasal Cannula 12/12/24 16:13 Oxygen Flow Rate 2 12/12/24 16:13 Procedures EJ/Peripheral Line Arm R: EJ/Peripheral Line Date: 12/12/24 EJ/Peripheral Line Time: 18:07 Time Out Performed: Yes Skin Cleansed in Sterile Fashion: Yes Ultrasound Guided: Yes Size (gauge): 18 IV Secured and Dressing Applied: Yes Patient Tolerated Procedure: well and no complications MDM - SOB/Dyspnea MDM Narrative Medical decision making narrative: 64-year-old female with history of morbid obesity, hypertension, nasal polyps. She presents to the emergency depart with shortness of breath, difficulty breathing and hypoxia. She was recently discharged from the hospital in October for hypoxic respiratory failure requiring oxygen and community-acquired pneumonia requiring antibiotics. She had sepsis without septic shock. Patient was doing well since discharge but for last few days has been having recurrence of her difficulty breathing and which she describes as diffuse wheezing. No history of asthma or COPD and denies any smoking. Denies any cardiac history such as heart failure or any thromboembolic disease such as DVT or PE. No fever or chills. Was otherwise in her normal state of health. Patient denies any chest pain, increased leg swelling, fever chills. No abdominal pain or back pain. Endorses wheezing and difficulty breathing especially through her nose and difficulty lying flat. Patient is tachycardic, tachypneic, hypoxic and hypertensive. She has diffuse wheezing in all lung allison but no decreased air entry. She is tachypneic and breathing uncomfortably. No history of COPD or asthma. This wheezing could be secondary to fluid overload from new onset of heart failure, hypertensive emergency with heart failure, infectious pathology such as pneumonia and recurrent since she was just discharged after an admission for pneumonia recently. Thromboembolic disease such as PE is also in the differential given the tachycardia and hypoxemia with recent hospitalization. No leg swelling that appears DVT in nature. Broad workup was ordered this time including CBC, CMP, troponin, EKG, blood cultures, lactic acid, CT angio with PE study, treatments with albuterol and Atrovent, broad-spectrum antibiotic coverage with vancomycin and cefepime and L of fluid. She will not get the full 30 cc/kg at this immediate moment given her reported difficulty lying flat and this could be potential heart failure relation and volume overload rather than infectious pathology. Will re-evaluate after initial bolus and revisit fluids. Patient felt significantly improved after the albuterol and Atrovent as well as magnesium bolus. She was able to breathe more comfortably no longer as tachypneic. Still requiring oxygen 3 L at this time. Still remains tachycardic in the 120s. Her laboratory studies show some dehydration with elevated white count and hemoconcentration with elevated hemoglobin. Given additional 2 L of fluid and maintenance infusion at this time. Chemistry panel shows no acute electrolyte abnormalities. Normal creatinine, normal glucose and LFTs. Negative lactic acid. BNP is negative. CTA was limited but no central embolism or definitive segmental emboli noted. Upper lobe opacities consistent with pneumonia. She is treated on vancomycin cefepime at this time and given 30 cc/kg fluid bolus. She was admitted to the hospital after I discussed the case with the hospitalist who accepted her to an IMU bed at this time. Medical Records Attestation: I reviewed the patient's medical records. Lab Data Attestation: I reviewed the patient's lab results. 12/12/24 16:07 12/12/24 16:26 Labs: Lab Results 12/12/24 12/12/24 Range/Units 16:07 16:26 WBC 13.1 H (4.5-10.0) K/mm3 RBC 6.20 H (4.2-5.4) M/mm3 Hgb 16.4 H D (12.0-15.0) g/dL Hct 52.5 H (37.0-47.0) % MCV 84.7 (80-100) fl MCH 26.5 (26-34) pg MCHC 31.2 L (32-36) g/dl RDW 16.1 H (11.5-14.5) % Plt Count 299 (150-375) k/mm3 MPV 9.0 (7.4-10.4) fl Immature Gran % (Auto) 1.5 H (0-0.5) % Neut % (Auto) 70.1 (45.5-73.1) % Lymph % (Auto) 16.8 L (18.3-44.2) % Power % (Auto) 6.0 (2.6-8.5) % Eos % (Auto) 5.1 H (0-4.4) % Baso % (Auto) 0.5 (0.2-1.2) % Lymph # (Auto) 2.20 (0.9-3.2) K/mm3 Power # (Auto) 0.8 H (0.1-0.6) K/mm3 Eos # (Auto) 0.7 H (0-0.3) K/mm3 Baso # (Auto) 0.1 (0.0-0.1) K/mm3 Abs Immat Gran (auto) 0.20 H (0.00-0.031) K/mm3 Absolute Neuts (auto) 9.1 H (1.3-6.7) K/mm3 Absolute Nucleated RBC 0.000 (0.0-0.012) K/mm3 Nucleated RBC % 0.0 (0.0-0.2) % Sodium 140 (137-145) mmol/L Potassium 4.1 (3.4-5.0) mmol/L Chloride 101 (98-107) mmol/L Carbon Dioxide 30 (22-30) mmol/L Anion Gap 9 (4-12) mmol/L BUN 12 D (7-17) mg/dL Creatinine 0.61 L 0.70 (0.7-1.0) mg/dL Estim Creat Clear Calc Not Reportable Not Reportable Estimated GFR > 60 > 60 (59 - ) Glucose 116 H (65-110) mg/dL Lactic Acid 1.0 (0.7-2.0) mmol/L Calcium 9.6 (8.4-10.2) mg/dL Total Bilirubin 0.6 (0.2-1.3) mg/dL AST 30 (14-36) U/L ALT 19 (6-35) U/L Alkaline Phosphatase 105 (38-126) U/L NT-Pro-B Natriuret Pep 174 H (19.9-100) pg/mL Total Protein 8.9 H (6.3-8.2) g/dL Albumin 4.4 (3.5-5.1) g/dL Imaging Data Attestation: I personally reviewed and interpreted this imaging study as follows: My impression: Impressions Chest X-Ray 12/12/24 16:19 IMPRESSION: No acute cardiopulmonary process. Chest CTA 12/12/24 18:46 IMPRESSION: Limited examination. No central embolus. No definite segmental embolus noting that evaluation is somewhat limited. Nondiagnostic imaging of the subsegmental pulmonary arteries. Upper lobe opacities may represent edema or infection. Critical Care Time Critical Care Time Critical Care Time: Yes Total Critical Care Time: 75 Discharge Plan Discharge Clinical Impression: Acute hypoxemic respiratory failure, Pneumonia, Acute dehydration, Tachycardia, Hypoxemia requiring supplemental oxygen Patient Disposition: Still a Patient Condition: Stable Patient Language: Estonian Prescriptions: No Action lisinopril 20 mg tablet 10 mg PO DAILY prednisone 20 mg Tablet 40 mg PO DAILY@0800 Qty: 6 0RF Saline Mist 0.65 % Aerosol,[place] 1 spray intranasal Q6HR PRN (Reason: Congestion) Qty: 45 0RF guaifenesin [Mucus Relief ER] 600 mg Tablet Extended Release 12hr 600 mg PO Q12HR Qty: 14 0RF amoxicillin-pot clavulanate 875-125 mg tablet 1 tablet PO Q12H Qty: 2 0RF Rx Instructions: Start on 10/30/2024 azithromycin 500 mg tablet 500 mg PO DAILY Qty: 1 0RF Rx Instructions: Take dose on 10/30/2024, this is your last dose. Follow-up/Referrals: Bhargavi Gonzales MD [Primary Care Provider] - Time of Disposition: 20:02
--- OUTSIDE RECORDS SUMMARY | 2024-12-12 16:06 | XMS_ITS | Clinical Summary ---
Author Organization [facility] Address [address] [place] [id number] Care Team Providers Care Softball Player Name Role Phone DanayMagali schwab JOSÉ Primary [...] for wheezing. I discussed patient seeing an rope twisting machine operator, but her sister would like to just do the labs instead of having to go to a specialist visit. Hydronephrosis 05/09/2020 Assessment & Plan (05/09/2020 4:59 PM [employer] SK[employer]TER): Could certainly have been due to a stone but without seeing this on her CT scan will refer to urology for further evaluation. Patient is aware of long-term risks posed by chronic hydronephrosis and hydroureter. Check metabolic panel next week for renal function. Leukocytosis 05/09/2020 Assessment & Plan (05/09/2020 5:00 PM [employer] SK[employer]IFTER): Repeat CBC next week to ensure normalization [...] prevention, proper nutrition, and suggested joining [facility] to accomplish most of these goals. [...] loss. Assessment & Plan (05/09/2020 5:00 PM BACON SK[employer] LIFTER): Remains well controlled at home and there [...] Department Care Team Description 12/06/2024 Results Follow-Up [facility] at [address] [phone] Magali Jon NP Hepatitis C antibody Blood, Hepatitis B Surface Antigen Blood, Hepatitis B core antibody, total Blood, Hepatitis B surface antibody (immune status) Blood 12/03/2024 11:50 AM CDT Lab [facility] Outpatient Center at [address] [address] Encounter for hepatitis C screening test for low risk patient; Need for hepatitis B screening test; Screening for diabetes mellitus; Subclinical hypothyroidism; Mixed hyperlipidemia; Benign hypertension 12/03/2024 11:00 AM CDT Office Visit [facility] at [address] [phone] Magali Jon NP Chronic maxillary sinusitis (Primary Dx); Acquired deviated nasal septum; Wheezing; Pneumonia of both lungs due to infectious organism, unspecified part of lung; Benign hypertension; Class 3 severe obesity due to excess calories with serious comorbidity and body mass index (BMI) of 50.0 to 59.9 in adult; Prediabetes 11/08/2024 Telephone [facility] at [address] [phone] Magali Jon NP BETHANY Questions 10/26/2024 9:50 AM CDT - 10/26/2024 11:59 PM CDT Hospital Encounter [facility] Discharge Disposition: Discharge to home or self care 09/21/2024 10:30 AM CDT Office Visit [facility] at [address] [address] Magali Jon NP Wheezing (Primary Dx); Class 3 severe obesity due to excess calories with serious comorbidity and body mass index (BMI) of 50.0 to 59.9 in adult; Benign hypertension; Mixed hyperlipidemia; Vitamin D deficiency; Subclinical hypothyroidism; Prediabetes; Screening for diabetes mellitus; Need for hepatitis B screening test; Encounter for hepatitis C screening test for low risk patient; Colon cancer screening 09/21/2024 Telephone [facility] at [address] [phone] Magali Jon NP Recommendation Request; [...] Mother Diabetes mellit us; Heart attack Mother VA; Hypertension Mother Hypertension; Relation Name Status Comments [...] on file Legal Sex Female 2:38 PM [employer] SK[employer]TER Gender Identity Not on file Sexual Orientation [...] last revised on 2019. Testing performed by: [facility], [address] [place] [address]., [id number] Blood 12/03/2024 11:4 4 AM CDT 12/03/2024 4:36 PM CDT Magali Jon NP LAB MICROBIOLOGY - GENE RAL ORDERABLES Final Result Performing Organization Address City/[facility]/ZIP Co de Phone Number [place] [address] [employer] [place] [address] * Hepatitis B core antibody, total Blood (12/03/2024 11:44 AM CDT) Hep B core IgG/IgM Nonreactive Nonreactive Comment:Testing performed by : [facility], [address] [place] [address]., [id number] Blood 12/03/2024 11:4 4 AM CDT 12/04/2024 9:53 AM CDT Magali Jon NP LAB MICROBIOLOGY - GENE RAL ORDERABLES Final Result [address] [employer] [place] [address] * Hepatitis B surface antibody (immune status) [...] last revised on 19. Testing performed by: [facility], [address] [place] [address]., [id number] Blood 12/03/2024 11:4 4 AM CDT 12/03/2024 4:36 PM CDT Magali Jon COMPUTER SYSTEM SPECIALIST LAB MICROBIOLOGY - GENE RAL ORDERABLES Final Result Performing Organization Address [facility] Co de Phone Number [address] [place] [address] * Hepatitis B Surface Antigen Blood (12/03/2024 11:44 AM CDT) HepBsAg Nonreactive Nonreactive Comment:Testing performed by : [facility], [address] [place] [address]., [id number] Blood 12/03/2024 11:4 4 AM CDT 12/03/2024 4:36 PM CDT Magali Jon COMPUTER SYSTEM SPECIALIST LAB MICROBIOLOGY - GENE RAL ORDERABLES Final Result Performing Organization Address [facility] de Phone Number [place] [phone] [facility] [place] [address] * Stool DNA - Cologuard (07/14/2019) Scribed Stool DNA - Cologuard Negative VR1 Stool 07/14/2019 Sanjvi Conte MD LAB BODY FLUIDS AND STOOLS O RDERABLES Final Result Performing Organization Address [facility] de Phone Number VR1 * Diagnostic Mammogram Bilateral W Wilmer (08/06/2016 7:29 PM CDT) Anatomical Region Laterality Modality Breast Bilateral Mammography 08/06/2016 7:29 PM CDT Narrative 08/06/2016 7:29 PM CDT SCREENING MAMM W WILMER BI Acc#: [id number] DATE OF EXAM: Aug 06 2016 CLINICAL HISTORY: Screening. Performed by: [facility] RESULT: Craniocaudal and mediolateral oblique [...] on: Aug 06 2016 2:29P Transcribed by: [facility] On: Aug 06 2016 4:05P Approved Electronically by: DR SHANNA RHODES M.D. on: Aug 06 2016 7:55P Attending: DR SANJIV CONTE Requesting: DR SANJIV CONTE Requesting Attending Attending ID: [id number] Requesting ID: [id number] Report To 1 ID: [id number] Report To 1 Name: DR SANJIV CONTE Report To 1 FAX: [phone] NextGen Order #: Procedure Note Miscellaneous, Notinfile / Provider, MD Richard - 10/02/2016 SCREENING MAMM W WILMER BI Acc#: [id number] DATE OF EXAM: Aug 06 2016 CLINICAL HISTORY: Screening. Performed by: [facility] RESULT: Craniocaudal and mediolateral oblique [...] DR SANJIV CONTE Requesting Attending Attending ID: [id number] Requesting ID: [id number] Report To 1 ID: [id number] Report To 1 Name: DR SANJIV CONTE Report To 1 FAX: [phone] NextGen Order #: us Not In File Miscellaneous IMG MAMMO PROCEDURES F inal Result * DEXA SCAN (10/02/2011) DEXA Scan Normal us Historical Provider HEALTH MAINTENANCE Final Result from Last 3 Months or Most Recently Relevant to Health Maintenance Insurance MEDICARE MEDICARE MEDICARE Care Teams Softball Player Relationship Specialty Start Date End Date Magali Jon NP [id number] [facility] [address] [place] [address] PCP - General Nurse Practitioner 09/21/24
--- OUTSIDE RECORDS SUMMARY | 2024-12-12 16:06 | XMS_ITS | Referral Summary ---
Author Organization [facility] Address [address] [place] [id number] Care Team Providers Care Trimming Inspector Name Role Phone Magali Jon NP Primary Care Provider Encounters Date Type Department Care Team Description 12/06/2024 Results Follow-Up [facility] Medical [facility] Primary Care at [address] [phone] Magali Jon NP Hepatitis C antibody Blood, Hepatitis B Surface Antigen Blood, Hepatitis B core antibody, total Blood, Hepatitis B surface antibody (immune status) Blood 12/03/2024 11:50 AM CDT Lab [facility] Outpatient Lab - Outpatient Center at [address] [id number] Encounter for hepatitis C screening test for low risk patient; Need for hepatitis B screening test; Screening for diabetes mellitus; Subclinical hypothyroidism; Mixed hyperlipidemia; Benign hypertension 12/03/2024 11:00 AM CDT Office Visit [facility] Primary [facility] at [address] [phone] Magali Jon NP Chronic maxillary sinusitis (Primary Dx); Acquired deviated nasal septum; Wheezing; Pneumonia of both lungs due to infectious organism, unspecified part of lung; Benign hypertension; Class 3 severe obesity due to excess calories with serious comorbidity and body mass index (BMI) of 50.0 to 59.9 in adult; Prediabetes 11/08/2024 Telephone [facility] Primary Care at [address] [phone] Magali Jon NP BETHANY Questions 10/26/2024 9:50 AM CDT - 10/26/2024 11:59 PM CDT Hospital Encounter [facility] Discharge Disposition: Discharge to home or self care 09/21/2024 Telephone [facility] Primary Care at [address] [phone] Magali Jon NP Recommendation Request; Medical Question/Miscellaneous 09/21/2024 10:30 AM CDT Office Visit [facility] Primary Care at [address] [phone] Magali Jon NP Wheezing (Primary [...] for wheezing. I discussed patient seeing an personnel adviser, but her sister would like to just do the labs instead of having to go to a specialist visit. Hydronephrosis 05/09/2020 Assessment & Plan (05/09/2020 4:59 PM MANAGER BUSINESS CONTINUITY): Could certainly have been due to a stone but without seeing this on her CT scan will refer to urology for further evaluation. Patient is aware of long-term risks posed by chronic hydronephrosis and hydroureter. Check metabolic panel next week for renal function. Leukocytosis 05/09/2020 Assessment & Plan (05/09/2020 5:00 PM MANAGER BUSINESS CONTINUITY): Repeat CBC next week to ensure normalization [...] fall prevention, proper nutrition, and suggested joining [facility] to accomplish most of these goals. [...] loss. Assessment & Plan (05/09/2020 5:00 PM MANAGER BUSINESS CONTINUITY): Remains well controlled at home and there [...] fall prevention, proper nutrition, and suggested joining [facility] to accomplish most of these goals. [...] on file Legal Sex Female 2:38 PM MANAGER BUSINESS CONTINUITY Gender Identity Not on file Sexual Orientation [...] last revised on 2019. Testing performed by: [facility], [address] [place] [address]., [id number] Blood 12/03/2024 11:4 4 AM CDT 12/03/2024 4:36 PM CDT Magali Jon LAB MICROBIOLOGY - GENE RAL ORDERABLES Final Result Performing Organization Address City/[facility]/ZIP Co de Phone Number [facility] [address] [facility] [place] [place] [address] * Hepatitis B core antibody, total Blood (12/03/2024 11:44 AM CDT) Pathologist [facility] Hep B core IgG/IgM Nonreactive Nonreactive Comment:Testing performed by : [facility], [address] [place] [address]., [id number] Blood 12/03/2024 11:4 4 AM CDT 12/04/2024 9:53 AM CDT Magali Jon NP LAB MICROBIOLOGY - GENE RAL ORDERABLES Final Result [facility] [address] [facility] [place] [place] [address] * Hepatitis B surface antibody (immune status) Blood (12/03/2024 11:44 AM CDT) Pathologist [facility] HBsAb (immune status) Nonreactive Comment: Interpretive Data [...] last revised on 19. Testing performed by: [facility], [address] [place] [address]., [id number] Blood 12/03/2024 11:4 4 AM CDT 12/03/2024 4:36 PM CDT Magali Jon CANDLES POURER LAB MICROBIOLOGY - GENE RAL ORDERABLES Final Result Performing Organization Address [facility] Co de Phone Number LICHA [address] [facility] [place] [address] * Hepatitis B Surface Antigen Blood (12/03/2024 11:44 AM CDT) HepBsAg Nonreactive Nonreactive Comment:Testing performed by : [facility], [address] [place] [address]., [id number] Blood 12/03/2024 11:4 4 AM CDT 12/03/2024 4:36 PM CDT Magali Jon NP LAB MICROBIOLOGY - GENE RAL ORDERABLES Final Result Performing Organization Address [facility] de Phone Number LICHA [address] [facility] [place] [address] * Stool DNA - Cologuard (07/14/2019) Scribed Stool DNA - Cologuard Negative [facility] Stool 07/14/2019 Sanjiv Conte MD LAB BODY FLUIDS AND STOOLS O RDERABLES Final Result Performing Organization Address [facility] Co de Phone Number [facility] * Diagnostic Mammogram Bilateral W Wilmer (08/06/2016 7:29 PM CDT) Anatomical Region Laterality Modality Breast Bilateral Mammography 08/06/2016 7:29 PM CDT Narrative 08/06/2016 7:29 PM CDT SCREENING MAMM W WILMER BI Acc#: [id number] DATE OF EXAM: Aug 06 2016 CLINICAL HISTORY: Screening. Performed by: [facility] RESULT: Craniocaudal and mediolateral oblique views [...] 2016 2:29P Transcribed by: [facility] On: Aug 06 2016 4:05P Approved Electronically by: CARMELO Lovett, DR OTERO on: Aug 06 2016 7:55P Attending: DR SANJIV CONTE Requesting: DR SANJIV CONTE Requesting Attending Attending ID: [id number] Requesting ID: [id number] Report To 1 ID: [id number] Report To 1 Name: DR SANJIV CONTE Report To 1 FAX: [phone] NextGen Order #: Procedure Note Miscellaneous, Notinfile / Provider, MD Richard - 10/02/2016 SCREENING MAMM W WILMER BI Acc#: [id number] DATE OF EXAM: Aug 06 2016 CLINICAL HISTORY: Screening. Performed by: [facility] RESULT: Craniocaudal and mediolateral oblique views [...] DR SANJIV CONTE Requesting Attending Attending ID: [id number] Requesting ID: [id number] Report To 1 ID: [id number] Report To 1 Name: DR SANJIV CONTE Report To 1 FAX: [phone] NextGen Order #: us Not In File Miscellaneous IMG MAMMO PROCEDURES F inal Result * DEXA SCAN (10/02/2011) DEXA Scan Normal us Historical Provider HEALTH MAINTENANCE Final Result from Last 3 Months or Most Recently Relevant to Health Maintenance Insurance MEDICARE MEDICARE MEDICARE Care Teams Trimming Inspector Relationship Specialty Start Date End Date Magali oJn NP [address] [place] [id number] PCP - General Nurse Practitioner 09/21/24
--- OUTSIDE RECORDS SUMMARY | 2024-12-12 16:06 | XMS_ITS | Encounter Summary ---
Author Organization [facility] Healthcare Address [address] [place] [address] Care Team Providers Care Stockfeed Miller Name Role Phone Magali Jon NP Primary Care Provider Encounter Details Date Type Department Care Team (Late st Contact Info) Description 12/06/2024 Results Follow-Up [facility] Primary Care at [address] [place] [address] Magali Jon NP [address] [place] [id number] Hepatitis C antibody Blood, Hepatitis B [...] on file Legal Sex Female 2:38 PM COMPUTER EQUIPMENT REPAIRER Gender Identity Not on file Sexual Orientation Not on file documented as of this encounter Plan of Treatment Not on file documented as of this encounter Visit Diagnoses Not on filedocumented in this encounter Care Teams Stockfeed Miller Relationship Specialty Start Date End Date Magali Jon NP [address] [id number] PCP - General Nurse Practitioner 09/21/24 documented as of this encounter
[2024-12-12] MEDS: SODIUM CHLORIDE 0.9% IV 1,000 ML 999 ML IV CONT ×3 (16:11→22:50)
[2024-12-12 16:16] LABS: Hematocrit 52.5 % (37.0-47.0); Hemoglobin 16.4 g/dL (12.0-15.0); Immature Granulocyte Percent A 1.5 % (0-0.5); Lymphocytes Absolute Auto 2.20 K/mm3 (0.9-3.2); Mean Corpuscular HGB Conc 31.2 g/dl (32-36); Mean Corpuscular Hemoglobin 26.5 pg (26-34); Mean Corpuscular Volume 84.7 fl (80-100); Nucleated Red Blood Cells Absolute Auto 0.000 K/mm3 (0.0-0.012); Nucleated Red Blood Cells Perc 0.0 % (0.0-0.2); Platelet Count Result 299 k/mm3 (150-375); Red Blood Count 6.20 M/mm3 (4.2-5.4); White Blood Count 13.1 K/mm3 (4.5-10.0)
[2024-12-12 16:28] LABS: Estimated Glomerular Filt Rate > 60
[2024-12-12] MEDS: ALBUTEROL SULFATE NEB 2.5 MG/3 ML INH 10 MG INHALATION (16:32)
[2024-12-12] MEDS: IPRATROPIUM BR 0.02% INH SOLN 0.5 MG/2.5 ML VIAL 1 MG INHALATION (16:33)
[2024-12-12 16:35] LABS: Alanine Aminotransferase 19 U/L (6-35); Albumin Level 4.4 g/dL (3.5-5.1); Alkaline Phosphatase 105 U/L (38-126); Anion Gap 9 mmol/L (4-12); Aspartate Amino Transferase 30 U/L (14-36); Bilirubin,Total 0.6 mg/dL (0.2-1.3); Blood Urea Nitrogen 12 mg/dL (7-17); Calcium 9.6 mg/dL (8.4-10.2); Carbon Dioxide 30 mmol/L (22-30); Chloride 101 mmol/L (98-107); Estimated Glomerular Filt Rate > 60; Glucose 116 mg/dL (65-110); Potassium 4.1 mmol/L (3.4-5.0); Sodium 140 mmol/L (137-145); Total Protein 8.9 g/dL (6.3-8.2)
--- NOTE | 2024-12-12 16:36 | PC.NURSE ---
CT called at this time due to the IV being infiltrated trying to get the CTA.
[2024-12-12 16:40] LABS: NT Pro B Type Natriuretic Pept 174 pg/mL (19.9-100)
--- NOTE | 2024-12-12 18:16 | PC.NURSE ---
pt fluids have not infused due to pt IV infiltrated. new IV initiated and fluids ressumed
[2024-12-12] MEDS: MAGNESIUM SULF 2 GM/WATER 50ML 2 GM/50 ML BAG IVPB (18:38)
[2024-12-12] MEDS: IPRATROPIUM 0.5 MG/ALBUTEROL SULFATE 2.5 MG AMPUL.NEB 3 ML INHALATION (20:25)
--- NOTE | 2024-12-12 20:57 | PM.IMHP ---
H&P: HPI History of Present Illness Date/Time: 12/12/24 20:57 Chief Complaint: Shortness of breath Narrative: Loquacious 64-year-old female with a past medical history of morbid obesity, essential hypertension, chronic hypercapnia, deviated septum with nasal polyps and recent hospitalization in October who presented to the ER due to shortness of breath and wheezing for 2-3 days. The patient reports that for the 1st couple weeks after she was discharged from the hospital last time she had improved shortness of breath. She still has intermittent wheezing which she attributes to her nasal pallor. She feels as if she is full of fluid and has had increased postnasal drip over the last couple of weeks. She went to her primary care provider who prescribed her Augmentin. Couple of days into taking Augmentin she had a generalized rash across her chest abdomen in down onto her legs. She describes welts and itching. She had a prior history of possible penicillin allergy when she was younger but still decided to try the Augmentin. She reports that when she started developing the rash she did have some increased shortness of breath. She stop the antibiotics about 3 days ago and her rash has pretty much resolved. Spider rash resolving she continues to have shortness of breath and increased wheezing. She reports that her shortness of breath did improve after receiving nebulizer treatment in the ER. She denies any history of prior smoking, diagnosis of COPD or asthma. She has never had pulmonary function testing. She did see an sales and marketing intern after her recent hospitalization who told her she was not allergic to the cats that live in the house. She also had testing for mold she does not think that her allergy testing came back positive for a mold allergy but she is not sure. She did have multiple 8 minutes performed in her house recently. She denies any recent ill contacts. She has been afebrile and denies any fevers or chills. She is concerned that her postnasal drip and sinus issues may have caused her to develop pneumonia. She states that she is supposed to follow-up with a ear nose and throat doctor soon regarding her deviated septum and nasal polyps. She states that she does not think that she could possibly have obstructive sleep apnea and is not interested in having a sleep study. She denies any lower extremity swelling or edema. She reports that her weight has been stable at 260 lb. In the ER CT scan was performed which demonstrated possible bilateral upper lobe pneumonia and no large central pulmonary embolism. White count was mildly elevated at around 13 and the patient was significantly tachycardic. She received 30 mL/kilos fluid bolus with improvement in tachycardia and resolution of tachypnea. Review of Systems Review of Systems: 12 systems were reviewed with pertinent positives and negatives per HPI. Except as documented in the HPI, all other systems were reviewed and are negative. [facility] Past Medical History Medical History (Updated 12/12/24 @ 21:13 by Pauline Matta DO) Morbid obesity with BMI of 50.0-59.9, adult Hypertension Maxillary sinus polyp Surgical History Surgical History H/O: hysterectomy History of appendectomy Family History Family History (Updated 12/12/24 @ 23:50 by Yudelka Benson RN) Mother Diabetes mellitus Heart attack Hypertension Sibling Acute myocardial infarction Father Prostate carcinoma Grandparent Congestive heart failure Hypertension Social History Social History (Updated 12/13/24 @ 00:27 by Pauline Matta DO) Social History: She is 1 of 10 children. Her and her younger brother live together. She is single and never been and does not have any children. 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 She denies any history of alcohol, tobacco or illicit substance use. Code status: Full code Surrogate decision maker: Dora Peres (sister) Smoking status: Never smoker Alcohol intake: never Substance use: never Substance use type: does not use Do You Feel Safe in your Home?: Yes Lack of Transportation: No Lack of Food: Never True Current Housing: I Have Housing Concerned About Future Housing: No Difficulty Paying Gas/Electric Bills: No Difficulty Paying for Meds: No Currently Unemployed: No Education: High School Diploma/GED Difficulty w/ Childcare or Family Care: No Spiritual care concerns: No Meds Home Medications and Allergies Home Medications ?Medication ?Instructions ?Recorded ?Confirmed ?Type lisinopril 20 mg tablet 10 mg PO DAILY 10/26/24 12/12/24 History sodium chloride 0.65 % nasal spray 1 spray intranasal Q6HR PRN 10/29/24 12/12/24 Rx aerosol (Saline Mist) Congestion #45 mL Allergies Allergy/AdvReac Type Severity Reaction Status Date / Time amoxicillin (From Augmentin) Allergy Intermediate Hives Verified 12/12/24 23:28 clavulanic acid (From Allergy Intermediate Hives Verified 12/12/24 23:28 Augmentin) Vital Signs Vital Signs - 24 hr 12/12/24 15:02 12/12/24 16:12 12/12/24 16:13 Temperature 98.6 F Pulse Rate 118 H Respiratory Rate 24 H Blood Pressure 189/113 H Pulse Oximetry 89 L 93 93 Oxygen Delivery Room Air Nasal Cannula Nasal Cannula Oxygen Flow Rate 2 2 12/12/24 16:13 12/12/24 17:10 12/12/24 20:16 Temperature Pulse Rate 120 H 128 H 122 H Respiratory Rate 21 H 28 H Blood Pressure 145/92 H 109/70 Pulse Oximetry 100 94 Oxygen Delivery Oxygen Flow Rate 12/12/24 20:25 12/12/24 20:29 12/12/24 20:31 Temperature Pulse Rate 122 H 120 H 122 H Respiratory Rate 20 20 20 Blood Pressure Pulse Oximetry 95 Oxygen Delivery Nasal Cannula Oxygen Flow Rate 3 Exam Narrative: Weight 118.3 kg BMI 52.7 Const: Other: Morbidly obese, no acute distress, appears stated age HENMT: Other: Mucous membranes are moist, fair dentition, no oral pharyngeal erythema, crowded posterior oropharynx, nasal cannula in place Eyes: Other: Pupils are equal and reactive, no scleral icterus, no conjunctival pallor Neck: Other: Large neck circumference, no JVD Resp: Other: Wheezing both posterior and anterior lung allison worsen anterior upper lung allison, no crackles, conversational tachypnea Cardio: Other: Sinus tachycardia, 2+ bilateral radial pedal pulses, no JVD, no murmur GI: Other: Morbidly obese, soft, nontender, normoactive bowel sounds : Other: Unable to evaluate patient's still groin or pannus folds due to the weight of her lipedema Skin: Other: Slight erythema to the dependent edema of the lower abdomen in the area of the mons, no rash, abdominal scar vertical just to the right of midline due to positioning Neuro: Other: Alert oriented, speech is clear, no facial asymmetry, no localizing neurologic deficits noted during the course of conversation Extrem: Other: No clubbing, cyanosis or edema, moves all extremities equally Psych: Other: Pleasant and cooperative, perseverating on symptomatology, fair insight H&P: Results Labs Labs: Laboratory Tests 12/12/24 16:07 12/12/24 16:26 12/12/24 12/12/24 12/12/24 16:07 16:26 20:44 WBC 13.1 H RBC 6.20 H Hgb 16.4 H D Hct 52.5 H MCV 84.7 MCH 26.5 MCHC 31.2 L RDW 16.1 H Plt Count 299 MPV 9.0 Immature Gran % (Auto) 1.5 H Neut % (Auto) 70.1 Lymph % (Auto) 16.8 L Woodward % (Auto) 6.0 Eos % (Auto) 5.1 H Baso % (Auto) 0.5 Lymph # (Auto) 2.20 Woodward # (Auto) 0.8 H Eos # (Auto) 0.7 H Baso # (Auto) 0.1 Abs Immat Gran (auto) 0.20 H Absolute Neuts (auto) 9.1 H Absolute Nucleated RBC 0.000 Nucleated RBC % 0.0 Sodium 140 Potassium 4.1 Chloride 101 Carbon Dioxide 30 Anion Gap 9 BUN 12 D Creatinine 0.61 L 0.70 Estim Creat Clear Calc Not Reportable Not Reportable Estimated GFR > 60 > 60 Glucose 116 H Lactic Acid 1.0 Calcium 9.6 Total Bilirubin 0.6 AST 30 ALT 19 Alkaline Phosphatase 105 NT-Pro-B Natriuret Pep 174 H Total Protein 8.9 H Albumin 4.4 Influenza A (RT-PCR) Pending Influenza B (RT-PCR) Pending RSV (RT-PCR) Pending SARS-CoV-2 RNA (RT-PCR) Pending Impressions Chest X-Ray 12/12/24 16:19 IMPRESSION: No acute cardiopulmonary process. Chest CTA 12/12/24 18:46 IMPRESSION: Limited examination. No central embolus. No definite segmental embolus noting that evaluation is somewhat limited. Nondiagnostic imaging of the subsegmental pulmonary arteries. Upper lobe opacities may represent edema or infection. EKG:Test Date: 2024-12-12 15:22:49 Measurements Intervals [place] Rate: 120 P: 49 VA: 170 QRS: 36 QRSD: 69 T: 79 QT: 281 QTc: 398 Interpretive Statements SINUS TACHYCARDIA NONSPECIFIC ST-T WAVE ABNORMALITY- HIGH LATERAL LEADS BASELINE ARTIFACT- I, II, III, AVR, AVL, AVF, V1 ABNORMAL ECG Compared to ECG 10/26/2024 11:20:58 NO SIGNIFICANT CHANGE All imaging and EKGs personally reviewed and interpreted. And unless stated otherwise agree with radiologic and cardiology interpretation. Assessment and Plan Assessment and plan (1) Hypoxemia requiring supplemental oxygen: Code(s): R09.02 - Hypoxemia; Z99.81 - Dependence on supplemental oxygen Status: Acute (2) Pneumonia: Qualifiers: Laterality: bilateral Lung location: upper lobe of lung Pneumonia type: due to unspecified organism Qualified Code(s): J18.9 - Pneumonia, unspecified organism Code(s): J18.9 - Pneumonia, unspecified organism Status: Acute (3) Acute dehydration: Code(s): E86.0 - Dehydration Status: Acute (4) Morbid obesity with BMI of 50.0-59.9, adult: Code(s): E66.01 - Morbid (severe) obesity due to excess calories; Z68.43 - Body mass index [BMI] 50.0-59.9, adult Status: Acute (5) Chronic hypercapnia: Code(s): R06.89 - Other abnormalities of breathing Status: Acute (6) Hypertension: Qualifiers: Hypertension type: primary hypertension Qualified Code(s): I10 - Essential (primary) hypertension Code(s): I10 - Essential (primary) hypertension Status: Chronic (7) Polycythemia: Code(s): D75.1 - Secondary polycythemia Status: Acute (8) Sepsis: Qualifiers: Acute respiratory failure type: with hypoxia Sepsis acute organ dysfunction status: with acute organ dysfunction Sepsis type: sepsis due to unspecified organism Severe sepsis acute organ dysfunction type: acute respiratory failure Severe sepsis shock status: without septic shock Qualified Code(s): A41.9 - Sepsis, unspecified organism; R65.20 - Severe sepsis without septic shock; J96.01 - Acute respiratory failure with hypoxia Code(s): A41.9 - Sepsis, unspecified organism Status: Acute Plan Patient has acute hypoxic respiratory failure with likely chronic hypercapnic failure given her elevated pCO2 on ABG from last hospitalization with compensated pH. I suspect patient likely has a component of underlying obesity hypoventilation syndrome or untreated obstructive sleep apnea complicating her presentation. She also may have some underlying asthma or reactive airway disease. Patient unfortunately is now been hospitalized twice within the last 2 months due to pneumonia. Patient was treated with nebulizers, 30 mL/kilos fluid bolus and broad-spectrum antibiotic with cefepime and vancomycin in the ER. Blood cultures have been obtained and are pending. Patient's O2 sats have improved on 3 L nasal cannula. Will wean oxygen as tolerated. Influenza, RSV and COVID PCR pending. Will send urine Legionella and pneumococcal antigen. Will check mycoplasma nasopharyngeal PCR. Will continue nebulizer treatments. Will obtain ABG. Given wheezing and hypercapnia cannot rule out some component of underlying chronic lung disease. Patient would benefit from outpatient PFTs once recovered from acute illness. Given her morbid obesity she would benefit from outpatient polysomnogram to evaluate for obstructive sleep apnea. Will obtain ApneaLink once more clinically stable. Will continue home antihypertensives. Will repeat CBC and electrolyte panel in a.m.. Patient does not meet sepsis criteria with leukocytosis tachycardia and tachypnea. MEDICAL DECISION MAKING NARRATIVE -Spoke with the ED provider in detail regarding patient's evaluation, workup and management -Patient seen and examined at bedside -Collaborated with patient's nurse at the bedside in detail and addressed all concerns -Labs, electrolytes, radiology, investigations and test results reviewed -ED/Consult/Nursing/Ancilliary notes on the chart reviewed and appreciated -Spoke with patient plan and management was discussed in detail in patient is in agreement. Quality VTE Prophylaxis VTE prophylaxis: pharmacologic ordered (Lovenox 40 mg subQ q.12 hours.) Hospitalist [facility] Advance Care Plan I have confirmed that the patient's Advanced Care Plan is present, code status is documented, or surrogate decision maker is listed in patient medical record.: Yes Medication Reconciliation I have utilized all available resources to obtain, update and review the patients current medications (includes all prescriptions, OTC, herbals, cannabis, and nutritional supplements).: Yes
[2024-12-12] MEDS: CEFEPIME 2 GM in SODIUM CHLORIDE 0.9% IV 50 ML 100 ML IVPB (21:14)
[2024-12-12 21:34] LABS: Alveolar/Arterial O2 Gradient 90.9 mmHg; Carboxyhemoglobin 0.9 % THb (0-2.0); Fractional Inspired Oxygen 30 %; HCO3 ABG 27.7 mEq/l (22.0-26.0); Methemoglobin ABG 0.4 %THb (0-1.5); Oxygen Content ABG 19.5 %vol (16.0-22.0); Oxygen Saturation ABG 93.7 % (95.0-100.0); PCO2 ABG 46.0 mmHg (35.0-45.0); PO2 ABG 69.0 mmHg (80.0-100.0); PO2 FiO2 Ratio Arterial Blood 2.30 %; Reduced Hemoglobin 6.6 %THb (0-5.0)
[2024-12-12 21:35] LABS: Influenza A QL RT-PCR Negative (Negative); Influenza B QL RT-PCR Negative (Negative); RSV RNA, RT-PCR Negative (Negative); SARS-CoV-2 RNA PCR Negative (Negative)
[2024-12-12 21:43] LABS: Modified Allen's Test Pass; Site Drawn RIGHT RADIAL
[2024-12-12 21:44] LABS: Liters per Minute 3.0 LPM
--- NOTE | 2024-12-12 21:44 | PCRCNOTE ---
ABG delayed due not being able to locate patient in mobilab
[2024-12-12 22:42] LABS: MRSA (PCR) NOT DETECTED (NOT DETECTE)
[2024-12-12] MEDS: ENOXAPARIN 40 MG/0.4 ML SYRINGE SUB-Q (22:50)
[2024-12-12] MEDS: VANCOMYCIN 1,250 MG/NS 250 ML 1,250 MG/250 ML BAG 166.67 MG IVPB (22:50)
--- NOTE | 2024-12-12 23:10 | PC.NURSE ---
This patient, Zenaida Heart, was admitted to IMU Room 214-01. Patient/family oriented to hospital policies and general routines including ID bracelet, bed and alarms, visiting hours, pain management, procedures, bathroom and other care routines, personal items, smoking policy, room service/diet, and visiting hours. Information on how to activate the Rapid Response Team has been discussed. Patient/Family are encouraged to report perceived risks to care and to ask questions if they do not understand what they are told or what they should do.
[2024-12-13] VITALS (23 sets, daily range): BP systolic 129–206; BP diastolic 63–105; PULSE 92–117; RESP 20–24; TEMP 36.4–37.7; O2SAT 92–98; BMI 52.5
[2024-12-13] MEDS: VANCOMYCIN 1,250 MG/NS 250 ML 1,250 MG/250 ML BAG 166.67 MG IVPB (00:26)
[2024-12-13] MEDS: IPRATROPIUM 0.5 MG/ALBUTEROL SULFATE 2.5 MG AMPUL.NEB 3 ML INHALATION ×4 (02:38→20:25)
[2024-12-13] MEDS: SODIUM CHLORIDE 0.9% IV 1,000 ML 150 ML IV CONT ×2 (04:02→19:30)
[2024-12-13 05:02] LABS: Estimated Glomerular Filt Rate > 60
--- NOTE | 2024-12-13 07:51 | PM.IMPN ---
Progress Note: A&P Assessment and Plan (1) Pneumonia: Qualifiers: Laterality: bilateral Lung location: upper lobe of lung Pneumonia type: due to unspecified organism Qualified Code(s): J18.9 - Pneumonia, unspecified organism Code(s): J18.9 - Pneumonia, unspecified organism Status: Acute Assessment and Plan: Patient found to be hypercapnic on his ABG Currently on 3 L nasal cannula with no respiratory distress Reviewed CTA chest Started on levofloxacin and prednisone Chest x-ray and ABG reviewed Quad screen negative Continue bronchodilators Comorbid condition : JOVI Monitor vitals Monitor culture Consider Pulmonology consult (2) Hypoxemia requiring supplemental oxygen: Code(s): R09.02 - Hypoxemia; Z99.81 - Dependence on supplemental oxygen Status: Acute Assessment and Plan: As above (3) Acute dehydration: Code(s): E86.0 - Dehydration Status: Acute Assessment and Plan: Encourage oral hydration (4) Morbid obesity with BMI of 50.0-59.9, adult: Code(s): E66.01 - Morbid (severe) obesity due to excess calories; Z68.43 - Body mass index [BMI] 50.0-59.9, adult Status: Acute Assessment and Plan: Needs endocrinology/PCP outpatient follow-up for obesity (5) Chronic hypercapnia: Code(s): R06.89 - Other abnormalities of breathing Status: Acute Assessment and Plan: Undiagnosed JOVI Apnea link (6) Hypertension: Qualifiers: Hypertension type: primary hypertension Qualified Code(s): I10 - Essential (primary) hypertension Code(s): I10 - Essential (primary) hypertension Status: Chronic Assessment and Plan: Possibly contributing factor with SHIREEN and obesity Continue home medication (7) Polycythemia: Code(s): D75.1 - Secondary polycythemia Status: Acute Assessment and Plan: Possibly due to JOVI (8) Nasal septal deviation: Code(s): J34.2 - Deviated nasal septum Status: Acute Assessment and Plan: Deviated nasal septum/nasal polyps Consulted ENT Subjective Date/time seen: 12/13/24 07:51 Interval history: Patient denies smoking. No oxygen use at home. Walks independent. Patient reports of any nasal polyps and deviation which kind of triggers her breathing issues. Consulted ENT Review of Systems Review of Systems: 12 systems were reviewed with pertinent positives and negatives per HPI. Except as documented in the HPI, all other systems were reviewed and are negative. Exam Narrative: Weight 118.3 kg BMI 52.7 Const: Other: Morbidly obese, no acute distress, appears stated age HENMT: Other: Mucous membranes are moist, fair dentition, no oral pharyngeal erythema, crowded posterior oropharynx, nasal cannula in place Eyes: Other: Pupils are equal and reactive, no scleral icterus, no conjunctival pallor Neck: Other: Large neck circumference, no JVD Resp: Other: Wheezing both posterior and anterior lung allison worsen anterior upper lung allison, no crackles, conversational tachypnea Cardio: Other: Sinus tachycardia, 2+ bilateral radial pedal pulses, no JVD, no murmur GI: Other: Morbidly obese, soft, nontender, normoactive bowel sounds : Other: Unable to evaluate patient's still groin or pannus folds due to the weight of her lipedema Skin: Other: Slight erythema to the dependent edema of the lower abdomen in the area of the mons, no rash, abdominal scar vertical just to the right of midline due to positioning Neuro: Other: Alert oriented, speech is clear, no facial asymmetry, no localizing neurologic deficits noted during the course of conversation Extrem: Other: No clubbing, cyanosis or edema, moves all extremities equally Psych: Other: Pleasant and cooperative, perseverating on symptomatology, fair insight Objective Data Vital Signs Vital Signs: Vital Signs - 24 hr 12/12/24 15:02 12/12/24 16:12 12/12/24 16:13 Temperature 98.6 F Pulse Rate 118 H Respiratory Rate 24 H Blood Pressure 189/113 H Pulse Oximetry 89 L 93 93 Oxygen Delivery Room Air Nasal Cannula Nasal Cannula Oxygen Flow Rate 2 2 12/12/24 16:13 12/12/24 17:10 12/12/24 20:16 Temperature Pulse Rate 120 H 128 H 122 H Respiratory Rate 21 H 28 H Blood Pressure 145/92 H 109/70 Pulse Oximetry 100 94 Oxygen Delivery Oxygen Flow Rate 12/12/24 20:25 12/12/24 20:29 12/12/24 20:31 Temperature Pulse Rate 122 H 120 H 122 H Respiratory Rate 20 20 20 Blood Pressure Pulse Oximetry 95 Oxygen Delivery Nasal Cannula Oxygen Flow Rate 3 12/12/24 22:55 12/12/24 23:25 12/12/24 23:40 Temperature Pulse Rate 117 H 112 H 117 H Respiratory Rate 22 H 22 H Blood Pressure 136/81 Pulse Oximetry 96 98 Oxygen Delivery Nasal Cannula Oxygen Flow Rate 3 12/13/24 00:00 12/13/24 00:21 12/13/24 02:00 Temperature 99.8 F H Pulse Rate 107 H 117 H 99 Respiratory Rate 22 H Blood Pressure 155/94 H Pulse Oximetry 98 Oxygen Delivery Oxygen Flow Rate 12/13/24 02:38 12/13/24 02:46 12/13/24 03:55 Temperature Pulse Rate 98 98 96 Respiratory Rate 20 20 22 H Blood Pressure Pulse Oximetry 94 Oxygen Delivery Nasal Cannula Oxygen Flow Rate 3 12/13/24 04:00 12/13/24 04:46 12/13/24 06:00 Temperature 98.5 F Pulse Rate 92 96 93 Respiratory Rate 22 H Blood Pressure 129/63 Pulse Oximetry 94 Oxygen Delivery Oxygen Flow Rate 12/13/24 07:25 Temperature 97.5 F L Pulse Rate 101 H Respiratory Rate 24 H Blood Pressure 148/90 H Pulse Oximetry 95 Oxygen Delivery Oxygen Flow Rate Intake/Output Intake/Output: Intake & Output 12/10/24 12/11/24 12/12/24 12/13/24 23:59 23:59 23:59 23:59 Intake Total 1100 2675 Output Total 950 Balance 1100 1725 Meds/Results Medications: Active Medications Generic Name Dose Route Start Last Admin Trade Name Freq PRN Reason Stop Dose Admin Acetaminophen 650 mg 12/12/24 19:20 Acetaminophen 325 Mg Tablet PO Q4H PRN Mild Pain (1-3) or Fever Albuterol/Ipratropium 3 ml 12/12/24 20:00 12/13/24 02:38 Ipratropium 0.5 Mg/Albuterol Sulfate 2.5 Mg Ampul.Neb 3 Ml INHALATION 3 ml Q6HRT NIURKA Administration Enoxaparin Sodium 40 mg 12/12/24 21:25 12/12/24 22:50 Enoxaparin 40 Mg/0.4 Ml Syringe SUB-Q 40 mg Q12HR NIURKA Administration Vancomycin HCl 1,500 mg in 500 mls @ 250 mls/hr 12/13/24 12:00 Vancomycin 1,500 Mg/Ns 500 Ml IVPB Q18H NIURKA Sodium Chloride 1,000 mls @ 150 mls/hr 12/12/24 19:20 12/13/24 04:04 Normal Saline Iv IV CONT Not Given .Q6H40M NIURKA Lisinopril 10 mg 12/13/24 09:00 Lisinopril 10 Mg Tablet PO DAILY NIURKA Ondansetron HCl 4 mg 12/12/24 19:20 Ondansetron Inj 4 Mg/2 Ml Vial IV PUSH Q4H PRN Nausea Sodium Chloride 1 spray 12/13/24 06:03 Saline 0.65% Kunal Soln 44 Ml Btl NASAL Q6HR PRN Congestion Radiology Results: ITS Impressions Chest X-Ray 12/12/24 16:19 IMPRESSION: No acute cardiopulmonary process. Chest CTA 12/12/24 18:46 IMPRESSION: Limited examination. No central embolus. No definite segmental embolus noting that evaluation is somewhat limited. Nondiagnostic imaging of the subsegmental pulmonary arteries. Upper lobe opacities may represent edema or infection. Labs Labs: Laboratory Results - last 24 hr 12/12/24 12/12/24 12/12/24 16:07 16:26 20:44 WBC 13.1 H RBC 6.20 H Hgb 16.4 H D Hct 52.5 H MCV 84.7 MCH 26.5 MCHC 31.2 L RDW 16.1 H Plt Count 299 MPV 9.0 Immature Gran % (Auto) 1.5 H Neut % (Auto) 70.1 Lymph % (Auto) 16.8 L [place] % (Auto) 6.0 Eos % (Auto) 5.1 H Baso % (Auto) 0.5 Lymph # (Auto) 2.20 [place] # (Auto) 0.8 H Eos # (Auto) 0.7 H Baso # (Auto) 0.1 Abs Immat Gran (auto) 0.20 H Absolute Neuts (auto) 9.1 H Absolute Nucleated RBC 0.000 Nucleated RBC % 0.0 Puncture Site ABG pH ABG pCO2 ABG pO2 ABG PO2/FiO2 Ratio ABG HCO3 ABG O2 Saturation ABG O2 Content ABG Base Excess A-a Gradient Oxyhemoglobin Carboxyhemoglobin Methemoglobin Reduced Hemoglobin Total Hemoglobin O2 Delivery Device O2 Liters/Min FiO2 Sodium 140 Potassium 4.1 Chloride 101 Carbon Dioxide 30 Anion Gap 9 BUN 12 D Creatinine 0.61 L 0.70 Estim Creat Clear Calc Not Reportable Not Reportable Estimated GFR > 60 > 60 Glucose 116 H Lactic Acid 1.0 Calcium 9.6 Total Bilirubin 0.6 AST 30 ALT 19 Alkaline Phosphatase 105 NT-Pro-B Natriuret Pep 174 H Total Protein 8.9 H Albumin 4.4 Nasal MRSA (PCR) Influenza A (RT-PCR) Negative Influenza B (RT-PCR) Negative RSV (RT-PCR) Negative SARS-CoV-2 RNA (RT-PCR) Negative Urine Pneumococcal Ag 12/12/24 12/12/24 12/13/24 21:19 21:25 01:13 WBC RBC Hgb Hct MCV MCH MCHC RDW Plt Count MPV Immature Gran % (Auto) Neut % (Auto) Lymph % (Auto) [place] % (Auto) Eos % (Auto) Baso % (Auto) Lymph # (Auto) [place] # (Auto) Eos # (Auto) Baso # (Auto) Abs Immat Gran (auto) Absolute Neuts (auto) Absolute Nucleated RBC Nucleated RBC % Puncture Site Right radial ABG pH 7.398 ABG pCO2 46.0 H ABG pO2 69.0 L ABG PO2/FiO2 Ratio 2.30 ABG HCO3 27.7 H ABG O2 Saturation 93.7 L ABG O2 Content 19.5 ABG Base Excess 2.3 A-a Gradient 90.9 Oxyhemoglobin 92.1 Carboxyhemoglobin 0.9 Methemoglobin 0.4 Reduced Hemoglobin 6.6 H Total Hemoglobin 15.1 O2 Delivery Device Nasal cannula O2 Liters/Min 3.0 FiO2 30 Sodium Potassium Chloride Carbon Dioxide Anion Gap BUN Creatinine Estim Creat Clear Calc Estimated GFR Glucose Lactic Acid Calcium Total Bilirubin AST ALT Alkaline Phosphatase NT-Pro-B Natriuret Pep Total Protein Albumin Nasal MRSA (PCR) Not detected Influenza A (RT-PCR) Influenza B (RT-PCR) RSV (RT-PCR) SARS-CoV-2 RNA (RT-PCR) Urine Pneumococcal Ag Cancelled 12/13/24 04:21 WBC RBC Hgb Hct MCV MCH MCHC RDW Plt Count MPV Immature Gran % (Auto) Neut % (Auto) Lymph % (Auto) [place] % (Auto) Eos % (Auto) Baso % (Auto) Lymph # (Auto) [place] # (Auto) Eos # (Auto) Baso # (Auto) Abs Immat Gran (auto) Absolute Neuts (auto) Absolute Nucleated RBC Nucleated RBC % Puncture Site ABG pH ABG pCO2 ABG pO2 ABG PO2/FiO2 Ratio ABG HCO3 ABG O2 Saturation ABG O2 Content ABG Base Excess A-a Gradient Oxyhemoglobin Carboxyhemoglobin Methemoglobin Reduced Hemoglobin Total Hemoglobin O2 Delivery Device O2 Liters/Min FiO2 Sodium Potassium Chloride Carbon Dioxide Anion Gap BUN Creatinine 0.67 L Estim Creat Clear Calc Not Reportable Estimated GFR > 60 Glucose Lactic Acid Calcium Total Bilirubin AST ALT Alkaline Phosphatase NT-Pro-B Natriuret Pep Total Protein Albumin Nasal MRSA (PCR) Influenza A (RT-PCR) Influenza B (RT-PCR) RSV (RT-PCR) SARS-CoV-2 RNA (RT-PCR) Urine Pneumococcal Ag Quality VTE Prophylaxis VTE prophylaxis: pharmacologic ordered (Lovenox 40 mg subQ q.12 hours.) Hospitalist MIPS Advance Care Plan I have confirmed that the patient's Advanced Care Plan is present, code status is documented, or surrogate decision maker is listed in patient medical record.: Yes Medication Reconciliation I have utilized all available resources to obtain, update and review the patients current medications (includes all prescriptions, OTC, herbals, cannabis, and nutritional supplements).: Yes
[2024-12-13 09:27] LABS: Hematocrit 42.8 % (37.0-47.0); Hemoglobin 12.6 g/dL (12.0-15.0); Mean Corpuscular HGB Conc 29.4 g/dl (32-36); Mean Corpuscular Hemoglobin 26.1 pg (26-34); Mean Corpuscular Volume 88.6 fl (80-100); Platelet Count Result 273 k/mm3 (150-375); Red Blood Count 4.83 M/mm3 (4.2-5.4); White Blood Count 9.0 K/mm3 (4.5-10.0)
[2024-12-13] MEDS: ENOXAPARIN 40 MG/0.4 ML SYRINGE SUB-Q ×2 (10:14→20:13)
[2024-12-13 11:04] LABS: Alanine Aminotransferase 14 U/L (6-35); Albumin Level 3.2 g/dL (3.5-5.1); Alkaline Phosphatase 72 U/L (38-126); Anion Gap 3 mmol/L (4-12); Aspartate Amino Transferase 21 U/L (14-36); Bilirubin,Total 0.5 mg/dL (0.2-1.3); Blood Urea Nitrogen 13 mg/dL (7-17); Calcium 7.9 mg/dL (8.4-10.2); Carbon Dioxide 27 mmol/L (22-30); Chloride 106 mmol/L (98-107); Glucose 107 mg/dL (65-110); Potassium 4.0 mmol/L (3.4-5.0); Sodium 136 mmol/L (137-145); Total Protein 6.3 g/dL (6.3-8.2)
[2024-12-13] MEDS: guaiFENesin 12 HR 600 MG TABCR 1200 MG PO (15:16)
--- NOTE | 2024-12-13 18:33 | P.CONS_ITS ---
Assessment and Plan Assessment and plan (1) Nasal septal deviation: Code(s): J34.2 - Deviated nasal septum Status: Acute (2) Nasal mucosa dry: Code(s): J34.89 - Other specified disorders of nose and nasal sinuses Status: Acute Plan 64-year-old female with right-sided deviated nasal septum, excessive crusting in the right nasal fossa causing complete obstruction, and left-sided nasal vestibule crusting Procedure:Rigid nasal endoscopy Anesthesia none Detail:Rigid nasal endoscopy performed bilaterally.We visualized the entire septum as well as the inferior turbinate,middle turbinate,superior turbinate and the sphenoethmoid recess.We also visualized the nasopharynx. Unless mentioned below the structures were normal. Septum was right deviated nasal septum,severe right side crusting,crusting in the left side nasal vestibule,no mucopurulent secretions could be seen in the left middle meatus Estimated blood loss:none Patient things that her nasal blockage could be contributing to her lower respiratory tract problems as it can cause her breathing difficulty, I told the patient that this could be the reason and I told her the only way to to rule that out is to perform CT scan of sinuses without contrast that will show us the sinuses as well as the nasal cavity plan: 1. Advised to use saline nasal spray in both nostrils 3 puffs 3 times per day for [address] scan sinuses without contrast. 3. Follow-up in the ENT Clinic after discharge HPI Data of Consult Date/Time: 12/13/24 18:33 Requesting Physician: Pauline Matta DO Primary Care Provider: Bhargavi Gonzales MD Consult Narrative Reason for consult: Deviated nasal septum Narrative: I was asked to see Zenaida Heart, a 64-year-old woman, for a deviated nasal septum. She reports a long-standing deviated septum that previously did not cause breathing problems. However, a recent nasal trauma has resulted in a complete blockage on the right side of her nose. Patient things that her nasal blockage could be contributing to her lower respiratory tract problems as it can cause her breathing difficulty, I told the patient that this could be the reason and I told her the only way to rule out other issues A CT scan of her sinuses in 2019 revealed a deviated septum and a nasal polyp. She has never used nasal sprays for this condition and denies having postnasal drip. Review of Systems 2 Review of Systems: All systems reviewed & are unremarkable except as noted in HPI and below Constitutional: Constitutional: Reports as per HPI Eyes: Eyes: Denies blurry vision and Denies change in vision ENT: Reports as per HPI Cardiovascular: Cardiovascular: Denies chest pain Respiratory: Respiratory: Reports as per HPI Gastrointestinal: Gastrointestinal: Reports as per HPI Endocrine: Endocrine: Denies fatigue Hematologic/Lymphatic: Hematologic/Lymphatic: Denies easy bleeding, Denies easy bruising and Denies lymphadenopathy Allergic/Immunologic: Allergic/Immunologic: Denies seasonal rhinorrhea [facility] Past Medical History Medical History (Updated 12/13/24 @ 18:43 by Flavia Warren MD) Nasal mucosa dry Morbid obesity with BMI of 50.0-59.9, adult Hypertension Maxillary sinus polyp Surgical History Surgical History H/O: hysterectomy History of appendectomy Family History Family History (Updated 12/12/24 @ 23:50 by Yudelka Benson RN) Mother Diabetes mellitus Heart attack Hypertension Sibling Acute myocardial infarction Father Prostate carcinoma Grandparent Congestive heart failure Hypertension Social History Social History (Updated 12/13/24 @ 00:27 by Pauline Matta DO) Social History: She is 1 of 10 children. Her and her younger brother live together. She is single and never been and does not have any children. 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 She denies any history of alcohol, tobacco or illicit substance use. Code status: Full code Surrogate decision maker: Dora Peres (sister) Smoking status: Never smoker Alcohol intake: never Substance use: never Substance use type: does not use Do You Feel Safe in your Home?: Yes Lack of Transportation: No Lack of Food: Never True Current Housing: I Have Housing Concerned About Future Housing: No Difficulty Paying Gas/Electric Bills: No Difficulty Paying for Meds: No Currently Unemployed: No Education: High School Diploma/GED Difficulty w/ Childcare or Family Care: No Spiritual care concerns: No Meds Home Medications and Allergies Home Medications ?Medication ?Instructions ?Recorded ?Confirmed ?Type lisinopril 20 mg tablet 10 mg PO DAILY 10/26/24 12/12/24 History sodium chloride 0.65 % nasal spray 1 spray intranasal Q6HR PRN 10/29/24 12/12/24 Rx aerosol (Saline Mist) Congestion #45 mL Allergies Allergy/AdvReac Type Severity Reaction Status Date / Time amoxicillin (From Augmentin) Allergy Intermediate Hives Verified 12/12/24 23:28 clavulanic acid (From Allergy Intermediate Hives Verified 12/12/24 23:28 Augmentin) Vital Signs Vital Signs - 24 hr 12/12/24 20:16 12/12/24 20:25 12/12/24 20:29 Temperature Pulse Rate 122 H 122 H 120 H Respiratory Rate 28 H 20 20 Blood Pressure 109/70 Pulse Oximetry 94 95 Oxygen Delivery Nasal Cannula Oxygen Flow Rate 3 12/12/24 20:31 12/12/24 22:55 12/12/24 23:25 Temperature Pulse Rate 122 H 117 H 112 H Respiratory Rate 20 22 H Blood Pressure 136/81 Pulse Oximetry 96 Oxygen Delivery Oxygen Flow Rate 12/12/24 23:40 12/13/24 00:00 12/13/24 00:21 Temperature 37.7 C H Pulse Rate 117 H 107 H 117 H Respiratory Rate 22 H 22 H Blood Pressure 155/94 H Pulse Oximetry 98 98 Oxygen Delivery Nasal Cannula Oxygen Flow Rate 3 12/13/24 02:00 12/13/24 02:38 12/13/24 02:46 Temperature Pulse Rate 99 98 98 Respiratory Rate 20 20 Blood Pressure Pulse Oximetry Oxygen Delivery Oxygen Flow Rate 12/13/24 03:55 12/13/24 04:00 12/13/24 04:46 Temperature 36.9 C Pulse Rate 96 92 96 Respiratory Rate 22 H 22 H Blood Pressure 129/63 Pulse Oximetry 94 94 Oxygen Delivery Nasal Cannula Oxygen Flow Rate 3 12/13/24 06:00 12/13/24 07:25 12/13/24 08:00 Temperature 36.4 C L Pulse Rate 93 101 H 96 Respiratory Rate 24 H 22 H Blood Pressure 148/90 H Pulse Oximetry 95 94 Oxygen Delivery Nasal Cannula Oxygen Flow Rate 2 12/13/24 08:45 12/13/24 08:56 12/13/24 13:25 Temperature Pulse Rate 98 100 100 Respiratory Rate 20 20 24 H Blood Pressure Pulse Oximetry Oxygen Delivery Oxygen Flow Rate 12/13/24 13:34 12/13/24 14:39 12/13/24 14:44 Temperature Pulse Rate 102 H 106 H 111 H Respiratory Rate 20 20 20 Blood Pressure 150/83 H Pulse Oximetry 92 92 Oxygen Delivery Nasal Cannula Oxygen Flow Rate 3.5 Exam 2 Const: General: cooperative, healthy appearing, comfortable, no acute distress, well developed, alert, awake and Physically active O rientation/consciousness: oriented to person, oriented to place, oriented to time and patient oriented x3 HENMT: Head: normocephalic and atraumatic Ears: external ears normal and EAC's normal Face/Nose/Sinus: Normal external nose present and Normal nares present Face and sinus: other (Right-sided deviated nasal septum, severe crusting filling right nostril ) Mouth: Yes Normal oral and palatal mucosa present, Yes lip normal and Yes tongue normal Other: Left-sided nasal crusting No postnasal drip in the left nostril, clear middle meatus in the left nasal cavity Eyes: General: appearance normal, both eyes and all related structures P eriorbital: periorbital findings normal Eyelids: eyelids normal C onjunctivae: conjunctivae normal Neck: Neck: normal visual inspection, full ROM and trachea midline Thyroid: thyroid normal Lymphatic: no lymphadenopathy noted Resp: Effort & Inspection: normal respiratory effort and able to speak in complete sentences Cardio: Jugular venous distension: no JVD Rate: regular rate Neuro: General: oriented to person, oriented to place, oriented to time and patient oriented x3 Cranial nerves: Yes CN's II-XII intact bilaterally Results Labs 12/13/24 04:21 12/13/24 04:21 Labs: Short CBC 12/13/24 Range/Units 04:21 WBC 9.0 (4.5-10.0) K/mm3 Hgb 12.6 D (12.0-15.0) g/dL Hct 42.8 (37.0-47.0) % Plt Count 273 (150-375) k/mm3 BMP 12/13/24 04:21 Sodium 136 L Potassium 4.0 Chloride 106 Carbon Dioxide 27 BUN 13 Creatinine 0.67 L Glucose 107 Calcium 7.9 L Liver Function 12/13/24 Range/Units 04:21 Total Bilirubin 0.5 (0.2-1.3) mg/dL AST 21 (14-36) U/L ALT 14 (6-35) U/L Alkaline Phosphatase 72 (38-126) U/L Albumin 3.2 L (3.5-5.1) g/dL
[2024-12-14] VITALS (19 sets, daily range): BP systolic 125–177; BP diastolic 59–95; PULSE 88–100; RESP 16–20; TEMP 36–36.8; O2SAT 91–97
[2024-12-14] MEDS: IPRATROPIUM 0.5 MG/ALBUTEROL SULFATE 2.5 MG AMPUL.NEB 3 ML INHALATION ×4 (01:02→20:05)
[2024-12-14 06:21] LABS: Hematocrit 41.4 % (37.0-47.0); Hemoglobin 12.7 g/dL (12.0-15.0); Mean Corpuscular HGB Conc 30.7 g/dl (32-36); Mean Corpuscular Hemoglobin 26.7 pg (26-34); Mean Corpuscular Volume 87.2 fl (80-100); Platelet Count Result 253 k/mm3 (150-375); Red Blood Count 4.75 M/mm3 (4.2-5.4); White Blood Count 7.2 K/mm3 (4.5-10.0)
[2024-12-14] MEDS: ACETAMINOPHEN 325 MG TABLET 650 MG PO (06:35)
[2024-12-14 06:49] LABS: Alanine Aminotransferase 15 U/L (6-35); Albumin Level 3.4 g/dL (3.5-5.1); Alkaline Phosphatase 65 U/L (38-126); Anion Gap 4 mmol/L (4-12); Aspartate Amino Transferase 29 U/L (14-36); Bilirubin,Total 0.3 mg/dL (0.2-1.3); Blood Urea Nitrogen 9 mg/dL (7-17); Calcium 8.5 mg/dL (8.4-10.2); Carbon Dioxide 30 mmol/L (22-30); Chloride 106 mmol/L (98-107); Estimated Glomerular Filt Rate > 60; Glucose 115 mg/dL (65-110); Potassium 4.4 mmol/L (3.4-5.0); Sodium 140 mmol/L (137-145); Total Protein 6.7 g/dL (6.3-8.2)
[2024-12-14] MEDS: guaiFENesin 12 HR 600 MG TABCR 1200 MG PO ×2 (08:17→20:34)
[2024-12-14] MEDS: ENOXAPARIN 40 MG/0.4 ML SYRINGE SUB-Q ×2 (08:22→20:34)
[2024-12-14] MEDS: SALINE 0.65% NAS SOLN 44 ML BTL 3 SPRAY NASAL ×2 (12:04→16:48)
--- NOTE | 2024-12-14 14:18 | PM.IMPN ---
Progress Note: A&P Assessment and Plan (1) Pneumonia: Qualifiers: Laterality: bilateral Lung location: upper lobe of lung Pneumonia type: due to unspecified organism Qualified Code(s): J18.9 - Pneumonia, unspecified organism Code(s): J18.9 - Pneumonia, unspecified organism Status: Acute Assessment and Plan: Patient found to be hypercapnic on his ABG Currently on 3 L nasal cannula with no respiratory distress Reviewed CTA chest Started on levofloxacin and prednisone Chest x-ray and ABG reviewed Quad screen negative Continue bronchodilators Comorbid condition : JOVI Monitor vitals Monitor culture monitor (2) Hypoxemia requiring supplemental oxygen: Code(s): R09.02 - Hypoxemia; Z99.81 - Dependence on supplemental oxygen Status: Acute Assessment and Plan: As above (3) Acute dehydration: Code(s): E86.0 - Dehydration Status: Acute Assessment and Plan: Encourage oral hydration (4) Morbid obesity with BMI of 50.0-59.9, adult: Code(s): E66.01 - Morbid (severe) obesity due to excess calories; Z68.43 - Body mass index [BMI] 50.0-59.9, adult Status: Acute Assessment and Plan: Needs endocrinology/PCP outpatient follow-up for obesity (5) Chronic hypercapnia: Code(s): R06.89 - Other abnormalities of breathing Status: Acute Assessment and Plan: Undiagnosed JOVI Apnea link (6) Hypertension: Qualifiers: Hypertension type: primary hypertension Qualified Code(s): I10 - Essential (primary) hypertension Code(s): I10 - Essential (primary) hypertension Status: Chronic Assessment and Plan: Possibly contributing factor with SHIREEN and obesity Continue home medication (7) Polycythemia: Code(s): D75.1 - Secondary polycythemia Status: Acute Assessment and Plan: resolved (8) Nasal septal deviation: Code(s): J34.2 - Deviated nasal septum Status: Acute Assessment and Plan: Deviated nasal septum/nasal polyps Sinus CT showed Moderate pansinusitis ENT following Plan OHS patient's pCO2 was 56 on admission Pulm consulted for [facility]HS eval DVT prophylaxis on Sq lovenox Subjective Date/time seen: 12/14/24 14:18 Interval history: Comfortable at bedside Review of Systems Review of Systems: 12 systems were reviewed with pertinent positives and negatives per HPI. Except as documented in the HPI, all other systems were reviewed and are negative. Exam Narrative: Weight 118.3 kg BMI 52.7 Const: Other: Morbidly obese, no acute distress, appears stated age HENMT: Other: Mucous membranes are moist, fair dentition, no oral pharyngeal erythema, crowded posterior oropharynx, nasal cannula in place Eyes: Other: Pupils are equal and reactive, no scleral icterus, no conjunctival pallor Neck: Other: Large neck circumference, no JVD Resp: Other: Wheezing both posterior and anterior lung allison worsen anterior upper lung allison, no crackles, conversational tachypnea Cardio: Other: Sinus tachycardia, 2+ bilateral radial pedal pulses, no JVD, no murmur GI: Other: Morbidly obese, soft, nontender, normoactive bowel sounds : Other: Unable to evaluate patient's still groin or pannus folds due to the weight of her lipedema Skin: Other: Slight erythema to the dependent edema of the lower abdomen in the area of the mons, no rash, abdominal scar vertical just to the right of midline due to positioning Neuro: Other: Alert oriented, speech is clear, no facial asymmetry, no localizing neurologic deficits noted during the course of conversation Extrem: Other: No clubbing, cyanosis or edema, moves all extremities equally Psych: Other: Pleasant and cooperative, perseverating on symptomatology, fair insight Objective Data Vital Signs Vital Signs: Vital Signs - 24 hr 12/13/24 14:39 12/13/24 14:44 12/13/24 20:00 Temperature Pulse Rate 106 H 111 H Respiratory Rate 20 20 Blood Pressure 150/83 H Pulse Oximetry 92 92 92 Oxygen Delivery Nasal Cannula Nasal Cannula Oxygen Flow Rate 3.5 3.5 Fraction of Inspired Oxygen 12/13/24 20:25 12/13/24 20:28 12/13/24 20:36 Temperature Pulse Rate 93 93 98 Respiratory Rate 20 20 20 Blood Pressure Pulse Oximetry 93 Oxygen Delivery Nasal Cannula Oxygen Flow Rate 3.5 Fraction of Inspired Oxygen 36 12/13/24 21:22 12/13/24 22:36 12/14/24 00:00 Temperature Pulse Rate 107 H 100 Respiratory Rate 16 Blood Pressure 206/105 H 166/90 H 174/71 H Pulse Oximetry 97 Oxygen Delivery Oxygen Flow Rate Fraction of Inspired Oxygen 12/14/24 01:02 12/14/24 01:11 12/14/24 03:15 Temperature 98.2 F Pulse Rate 93 95 93 Respiratory Rate 20 20 16 Blood Pressure 125/59 L Pulse Oximetry 95 Oxygen Delivery Oxygen Flow Rate Fraction of Inspired Oxygen 12/14/24 07:55 12/14/24 07:55 12/14/24 08:00 Temperature 97 F L Pulse Rate 92 88 Respiratory Rate 20 20 Blood Pressure 146/87 H Pulse Oximetry 96 95 Oxygen Delivery Nasal Cannula Oxygen Flow Rate 3.5 Fraction of Inspired Oxygen 36 12/14/24 08:00 12/14/24 08:04 12/14/24 08:04 Temperature Pulse Rate 91 93 Respiratory Rate 20 Blood Pressure Pulse Oximetry 94 96 Oxygen Delivery Nasal Cannula Nasal Cannula Oxygen Flow Rate 2 2 Fraction of Inspired Oxygen 28 12/14/24 12:00 12/14/24 12:10 12/14/24 13:48 Temperature 96.8 F L Pulse Rate 96 89 Respiratory Rate 18 20 Blood Pressure 177/95 H 171/81 H Pulse Oximetry 95 Oxygen Delivery Oxygen Flow Rate Fraction of Inspired Oxygen 12/14/24 14:01 Temperature Pulse Rate 92 Respiratory Rate 20 Blood Pressure Pulse Oximetry Oxygen Delivery Oxygen Flow Rate Fraction of Inspired Oxygen Intake/Output Intake/Output: Intake & Output 12/11/24 12/12/24 12/13/24 12/14/24 23:59 23:59 23:59 23:59 Intake Total 1100 4513 2872 Output Total 1200 Balance 1100 3313 2872 Meds/Results Medications: Active Medications Generic Name Dose Route Start Last Admin Trade Name Freq PRN Reason Stop Dose Admin Acetaminophen 650 mg 12/12/24 19:20 12/14/24 06:35 Acetaminophen 325 Mg Tablet PO 650 mg Q4H PRN Administration Mild Pain (1-3) or Fever Albuterol/Ipratropium 3 ml 12/12/24 20:00 12/14/24 13:48 Ipratropium 0.5 Mg/Albuterol Sulfate 2.5 Mg Ampul.Neb 3 Ml INHALATION 3 ml Q6HRT NIURKA Administration Enoxaparin Sodium 40 mg 12/12/24 21:25 12/14/24 08:22 Enoxaparin 40 Mg/0.4 Ml Syringe SUB-Q 40 mg Q12HR NIURKA Administration Guaifenesin 1,200 mg 12/13/24 15:00 12/14/24 08:17 Guaifenesin 12 Hr 600 Mg Tabcr PO 1,200 mg Q12HR NIURKA Administration Levofloxacin 750 mg 12/13/24 10:20 12/14/24 08:18 Levofloxacin 750 Mg Tablet PO 12/17/24 09:01 750 mg DAILY NIURKA Administration Lisinopril 10 mg 12/13/24 09:00 12/14/24 08:18 Lisinopril 10 Mg Tablet PO 10 mg DAILY NIURKA Administration Ondansetron HCl 4 mg 12/12/24 19:20 Ondansetron Inj 4 Mg/2 Ml Vial IV PUSH Q4H PRN Nausea Prednisone 40 mg 12/13/24 16:00 12/14/24 08:18 Prednisone 20 Mg Tablet PO 40 mg DAILY@0800 NIURKA Administration Sodium Chloride 1 spray 12/13/24 06:03 Saline 0.65% Kunal Soln 44 Ml Btl NASAL Q6HR PRN Congestion Sodium Chloride 3 spray 12/14/24 09:00 12/14/24 12:04 Saline 0.65% Kunal Soln 44 Ml Btl NASAL 3 spray TID NIURKA Administration Radiology Results: ITS Impressions Chest X-Ray 12/12/24 16:19 IMPRESSION: No acute cardiopulmonary process. Chest CTA 12/12/24 18:46 IMPRESSION: Limited examination. No central embolus. No definite segmental embolus noting that evaluation is somewhat limited. Nondiagnostic imaging of the subsegmental pulmonary arteries. Upper lobe opacities may represent edema or infection. Sinuses CT 12/14/24 08:02 IMPRESSION: 1. Moderate pansinus disease. Labs Labs: Laboratory Results - last 24 hr 12/14/24 05:57 WBC 7.2 RBC 4.75 Hgb 12.7 Hct 41.4 MCV 87.2 MCH 26.7 MCHC 30.7 L RDW 15.5 H Plt Count 253 MPV 9.6 Sodium 140 Potassium 4.4 Chloride 106 Carbon Dioxide 30 Anion Gap 4 BUN 9 Creatinine 0.49 L Estim Creat Clear Calc Not Reportable Estimated GFR > 60 Glucose 115 H Calcium 8.5 Total Bilirubin 0.3 AST 29 ALT 15 Alkaline Phosphatase 65 Total Protein 6.7 Albumin 3.4 L Quality VTE Prophylaxis VTE prophylaxis: pharmacologic ordered (Lovenox 40 mg subQ q.12 hours.)
[2024-12-14 15:47] LABS: Immunoglobulin A 425 mg/dL (70-400); Immunoglobulin G 1248 mg/dL (700-1600); Immunoglobulin M 63 mg/dL (40-230)
--- NOTE | 2024-12-14 16:23 | PM.CNPUL ---
Assessment and Plan Assessment and plan (1) Community acquired pneumonia: Qualifiers: Laterality: unspecified laterality Qualified Code(s): J18.9 - Pneumonia, unspecified organism Code(s): J18.9 - Pneumonia, unspecified organism Status: Acute Assessment and Plan: patient presents with worsening shortness of breath, leukocytosis, bilateral upper lobe infiltrates, wheezing. of note patient is also living in a house that is under construction with mold in the mendieta and she is also exposed to cats sometimes she develops worsening nasal congestion with exposure to the cats. Currently she is on room air with saturations 93%. Plan: Patient is improved and says that her cough is better, her phlegm is improved she has no rest shortness of breath but still has dyspnea on exertion, leukocytosis has resolved and she is afebrile. agree with levofloxacin 750 mg p.o. q.day, guaifenesin 1200 p.o. b.i.d. and DuoNebs q.6 hours. Patient will need a home O2 prior to discharge. I will send the respiratory pathogen panel. Will follow with you. (2) Morbid obesity with BMI of 50.0-59.9, adult: Code(s): E66.01 - Morbid (severe) obesity due to excess calories; Z68.43 - Body mass index [BMI] 50.0-59.9, adult Status: Acute Assessment and Plan: Patient is morbidly obese with a BMI of 53.0, she snores, no sleeping partner but has never been told she stops breathing in her sleep, she takes 1 nap a day. ABG on 3 L 7.40/46/69. TSH 4.92 on 10/22/2023 Plan: patient has no elevated PaCO2 of 46 but does not reach the threshold to qualify for noninvasive ventilation for obesity hypoventilation syndrome which is a level of 52 or greater. She may have a sleep-related breathing disorder and will require an outpatient sleep study. I will order an overnight oximetry on room air to assess for nocturnal hypoxemia. I will order an echocardiogram to assess LV function, RV function and pulmonary pressures. I will order TSH and free T4. History of Present Illness History of Present Illness Consult date: 12/14/24 Chief complaint: Severe sepsis, Pneumonia, Hypoxic respiratory fail Narrative: 12/14/2024: This is a new pulmonary consult for obesity hypoventilation syndrome. 64-year-old with a history of hypertension, nasal polyps and obesity. Patient has a history of a fall with nose trauma in 2019 and since then has had nasal congestion and drainage. In September of 2024 she went [facility] with sinus congestion and drainage to the throat and was given doxycycline. Her nasal drainage got worse. 10/26/2024 through 10/29/2024. Admitted to [facility] With antibiotics and discharged on prednisone, Augmentin and azithromycin. She felt better when she was discharged and did well for the next 2 weeks. At that time P she was having work done in her house and there was mold in the mendieta and the construction cruise were painting. She developed a slight cough with some chest tightness an upper wheezing. She went to her PCP on 12/03/2024 and was prescribed Augmentin which she started on 12/06/2024. On 12/08/2024 she notices her breathing was worse, her phlegm increased and she developed welts and skin rashes. She stop the Augmentin. On 12/10 her breathing was worse. She had dyspnea on exertion but no rest shortness of breath. On 12/12, She presented to the ED with blood pressure of 189/113, heart rate 118, room air saturations 89% and with 2 L her saturations were 100%. she was treated with DuoNeb and magnesium and given 30 mL/kilos. Her white blood cell count was 13.1, creatinine was 0.61, her BNP was 174, her eosinophils were 0.7%. MRSA swab negative. COVID influenza RSV RT PCR assay negative. She had a CT angiogram of the chest that showed no PE with bilateral pleural lobe infiltrates. She was started on vancomycin and cefepime. on 12/13 she was changed to Levaquin and prednisone was started. Patient was seen by ENT and she has a right deviation of her septum with crusting and obstruction on the right recommended saline 3 sprays each nostril 3 times a day for 10 days. 12/14/2024: Patient states she is better, she still has some 5 phlegm production that feels mainly in her throat. She has no rest shortness of breath her dyspnea on exertion is 50% back to her baseline. She has minimal cough. The patient states that she snores but has no breathing partner but was never told she has apneic events. She takes 1 nap a day and does not wake up with grounds. When I enter the room she was on 1.5 L nasal cannula saturations 93%. I placed her on room air and after 24 minutes her saturations were 93%. Her white blood cell count is 7.2, creatinine is 0.49. Her weight is 119 kilos and cumulative she is positive 7.2 L since admission. Patient also states she is exposed to 2 cats, and at times she notices that her nasal congestion is worse when she is exposed to these cats. DATA: EXAMINATION: CTA chest PE protocol DATE: 12/12/2024 18:37 INDICATION: hypoxia, tachy, recent hospitalization TECHNIQUE: Computed tomography angiography (CTA) of the chest was performed with 100 mL Omnipaque-350 intravenous contrast timed to evaluate the pulmonary arteries. Coronal maximum intensity projection 3D-reconstructions were created by the technologist. The dose-length product (DLP) was 961.79 mGy-cm. Automated exposure control and iterative reconstruction technique were employed. COMPARISON: None. FINDINGS: Lung parenchyma and airways: Considerable motion artifact. Calcified right lower lobe granuloma. Subsegmental areas of peribronchovascular consolidation and groundglass in the bilateral upper lobes. Pleura: Unremarkable. Thoracic inlet, axillae and chest wall: Unremarkable. Thoracic aorta: No significant dilation. No dissection. Minimal arch calcification. Mediastinum: Dilated central pulmonary arteries. Calcified nodes. Heart and pericardium: Normal. Coronary artery calcifications: Absent. Upper abdomen: Cholelithiasis, without inflammatory change. Small hiatal hernia. Mild bilateral renal cortical thinning and scarring. Bones: No acute osseous finding. Pulmonary arteries: Study quality: Significant motion artifact, beam hardening, and quantum mottle limits this study. Nondiagnostic imaging of the subsegmental pulmonary arteries. No central or definite segmental pulmonary emboli detected. IMPRESSION: Limited examination. No central embolus. No definite segmental embolus noting that evaluation is somewhat limited. Nondiagnostic imaging of the subsegmental pulmonary arteries. Upper lobe opacities may represent edema or infection. Review of Systems Constitutional: Constitutional: Reports no additional constitutional complaints Eyes: Eyes: Reports no additional eye complaints ENT: Reports system reviewed and no additional complaints, except as documented Cardiovascular: Cardiovascular: Reports no additional cardiovascular complaints Respiratory: Respiratory: Reports no additional respiratory complaints Gastrointestinal: Gastrointestinal: Reports no additional gastrointestinal complaints Musculoskeletal: Musculoskeletal: Reports no additional musculoskeletal complaints Neurologic: Reports system reviewed and no additional complaints, except as documented Psychiatric: Psychiatric: Reports no additional psychiatric complaints Endocrine: Endocrine: Reports no additional endocrine complaints Hematologic/Lymphatic: Hematologic/Lymphatic: Reports no additional hematologic/lymphatic complaints Allergic/Immunologic: Allergic/Immunologic: Reports no additional allergic/immunologic complaints [facility] Past Medical History Medical History (Updated 12/13/24 @ 18:43 by Flavia Warren MD) Nasal mucosa dry Morbid obesity with BMI of 50.0-59.9, adult Hypertension Maxillary sinus polyp Surgical History Surgical History H/O: hysterectomy History of appendectomy Family History Family History (Updated 12/12/24 @ 23:50 by Yudelka Benson RN) Mother Diabetes mellitus Heart attack Hypertension Sibling Acute myocardial infarction Father Prostate carcinoma Grandparent Congestive heart failure Hypertension Social History Social History (Updated 12/13/24 @ 00:27 by Pauline Matta DO) Social History: She is 1 of 10 children. Her and her younger brother live together. She is single and never been and does not have any children. 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 She denies any history of alcohol, tobacco or illicit substance use. Code status: Full code Surrogate decision maker: Dora Peres (sister) Smoking status: Never smoker Alcohol intake: never Substance use: never Substance use type: does not use Do You Feel Safe in your Home?: Yes Lack of Transportation: No Lack of Food: Never True Current Housing: I Have Housing Concerned About Future Housing: No Difficulty Paying Gas/Electric Bills: No Difficulty Paying for Meds: No Currently Unemployed: No Education: High School Diploma/GED Difficulty w/ Childcare or Family Care: No Spiritual care concerns: No Meds Home Medications and Allergies Home Medications ?Medication ?Instructions ?Recorded ?Confirmed ?Type lisinopril 20 mg tablet 10 mg PO DAILY 10/26/24 12/12/24 History sodium chloride 0.65 % nasal spray 1 spray intranasal Q6HR PRN 10/29/24 12/12/24 Rx aerosol (Saline Mist) Congestion #45 mL Allergies Allergy/AdvReac Type Severity Reaction Status Date / Time amoxicillin (From Augmentin) Allergy Intermediate Hives Verified 12/12/24 23:28 clavulanic acid (From Allergy Intermediate Hives Verified 12/12/24 23:28 Augmentin) Vital Signs Vital Signs - 24 hr 12/13/24 20:00 12/13/24 20:25 12/13/24 20:28 Temperature Pulse Rate 93 93 Respiratory Rate 20 20 Blood Pressure Pulse Oximetry 92 93 Oxygen Delivery Nasal Cannula Nasal Cannula Oxygen Flow Rate 3.5 3.5 Fraction of Inspired Oxygen 36 12/13/24 20:36 12/13/24 21:22 12/13/24 22:36 Temperature Pulse Rate 98 107 H Respiratory Rate 20 Blood Pressure 206/105 H 166/90 H Pulse Oximetry Oxygen Delivery Oxygen Flow Rate Fraction of Inspired Oxygen 12/14/24 00:00 12/14/24 01:02 12/14/24 01:11 Temperature Pulse Rate 100 93 95 Respiratory Rate 16 20 20 Blood Pressure 174/71 H Pulse Oximetry 97 Oxygen Delivery Oxygen Flow Rate Fraction of Inspired Oxygen 12/14/24 03:15 12/14/24 07:55 12/14/24 07:55 Temperature 36.8 C Pulse Rate 93 92 Respiratory Rate 16 20 Blood Pressure 125/59 L Pulse Oximetry 95 96 Oxygen Delivery Nasal Cannula Oxygen Flow Rate 3.5 Fraction of Inspired Oxygen 36 12/14/24 08:00 12/14/24 08:00 12/14/24 08:04 Temperature 36.1 C L Pulse Rate 88 91 93 Respiratory Rate 20 20 Blood Pressure 146/87 H Pulse Oximetry 95 94 Oxygen Delivery Nasal Cannula Oxygen Flow Rate 2 Fraction of Inspired Oxygen 12/14/24 08:04 12/14/24 12:00 12/14/24 12:10 Temperature 36.0 C L Pulse Rate 96 Respiratory Rate 18 Blood Pressure 177/95 H 171/81 H Pulse Oximetry 96 95 Oxygen Delivery Nasal Cannula Oxygen Flow Rate 2 Fraction of Inspired Oxygen 28 12/14/24 13:48 12/14/24 14:01 12/14/24 16:19 Temperature Pulse Rate 89 92 Respiratory Rate 20 20 Blood Pressure Pulse Oximetry 91 Oxygen Delivery Room Air Oxygen Flow Rate Fraction of Inspired Oxygen Exam Const: General: cooperative and comfortable Orientation/consciousness: oriented to person, oriented to place and oriented to time Other: obese HENMT: Head: normal to inspection Ears: hearing grossly normal bilaterally Eyes: General: appearance normal, both eyes and all related structures Neck: Neck: normal visual inspection Chest: Chest palpation & inspection: normal inspection of the chest Resp: Effort & Inspection: normal respiratory effort and able to speak in complete sentences Auscultation: crackles, no rales, no rhonchi, no wheezes and lung sounds not diminished Other: Bilateral upper lobe crackles Cardio: Jugular venous distension: no JVD GI: Inspection: normal to inspection GI Palp: No abdominal tenderness Other: morbid obesity Skin: General skin exam: normal color Neuro: General: oriented to person, oriented to place and oriented to time Extrem: General: normal to inspection and no edema Psych: Appearance: grossly normal Results Laboratory Findings 12/14/24 05:57 12/14/24 05:57 ABG, PT/INR, D-dimer: ABG ABG pH 7.398 (7.350-7.450) 12/12/24 21:25 ABG pCO2 46.0 mmHg (35.0-45.0) H 12/12/24 21:25 ABG pO2 69.0 mmHg (80.0-100.0) L 12/12/24 21:25 ABG O2 Saturation 93.7 % (95.0-100.0) L 12/12/24 21:25 Abnormal lab findings: Abnormal Labs 12/12/24 12/12/24 12/13/24 16:07 21:25 04:21 WBC 13.1 H RBC 6.20 H Hgb 16.4 H D Hct 52.5 H MCHC 31.2 L 29.4 L RDW 16.1 H 15.8 H Immature Gran % (Auto) 1.5 H Lymph % (Auto) 16.8 L Eos % (Auto) 5.1 H [place] # (Auto) 0.8 H Eos # (Auto) 0.7 H Abs Immat Gran (auto) 0.20 H Absolute Neuts (auto) 9.1 H ABG pCO2 46.0 H ABG pO2 69.0 L ABG HCO3 27.7 H ABG O2 Saturation 93.7 L Reduced Hemoglobin 6.6 H Sodium 136 L Anion Gap 3 L Creatinine 0.61 L 0.67 L Glucose 116 H Calcium 7.9 L NT-Pro-B Natriuret Pep 174 H Total Protein 8.9 H Albumin 3.2 L IgA 12/14/24 12/14/24 05:57 15:12 WBC RBC Hgb Hct MCHC 30.7 L RDW 15.5 H Immature Gran % (Auto) Lymph % (Auto) Eos % (Auto) [place] # (Auto) Eos # (Auto) Abs Immat Gran (auto) Absolute Neuts (auto) ABG pCO2 ABG pO2 ABG HCO3 ABG O2 Saturation Reduced Hemoglobin Sodium Anion Gap Creatinine 0.49 L Glucose 115 H Calcium NT-Pro-B Natriuret Pep Total Protein Albumin 3.4 L IgA 425 H Diagnostic Findings Additional studies: ITS Impressions Chest X-Ray 12/12/24 16:19 IMPRESSION: No acute cardiopulmonary process. Chest CTA 12/12/24 18:46 IMPRESSION: Limited examination. No central embolus. No definite segmental embolus noting that evaluation is somewhat limited. Nondiagnostic imaging of the subsegmental pulmonary arteries. Upper lobe opacities may represent edema or infection. Sinuses CT 12/14/24 08:02 IMPRESSION: 1. Moderate pansinus disease.
[2024-12-15] VITALS (8 sets, daily range): BP systolic 144–183; BP diastolic 70–99; PULSE 87–95; RESP 16–95; TEMP 34.3–36.7; O2SAT 20–95
[2024-12-15 06:47] LABS: Hematocrit 42.7 % (37.0-47.0); Hemoglobin 13.2 g/dL (12.0-15.0); Immature Granulocyte Percent A 0.5 % (0-0.5); Lymphocytes Absolute Auto 2.96 K/mm3 (0.9-3.2); Mean Corpuscular HGB Conc 30.9 g/dl (32-36); Mean Corpuscular Hemoglobin 26.6 pg (26-34); Mean Corpuscular Volume 85.9 fl (80-100); Nucleated Red Blood Cells Absolute Auto 0.000 K/mm3 (0.0-0.012); Nucleated Red Blood Cells Perc 0.0 % (0.0-0.2); Platelet Count Result 270 k/mm3 (150-375); Red Blood Count 4.97 M/mm3 (4.2-5.4); White Blood Count 8.6 K/mm3 (4.5-10.0)
[2024-12-15 07:05] LABS: Alanine Aminotransferase 17 U/L (6-35); Albumin Level 3.7 g/dL (3.5-5.1); Alkaline Phosphatase 65 U/L (38-126); Anion Gap 6 mmol/L (4-12); Aspartate Amino Transferase 26 U/L (14-36); Bilirubin,Total 0.4 mg/dL (0.2-1.3); Blood Urea Nitrogen 13 mg/dL (7-17); Calcium 8.8 mg/dL (8.4-10.2); Carbon Dioxide 29 mmol/L (22-30); Chloride 105 mmol/L (98-107); Estimated Glomerular Filt Rate > 60; Glucose 89 mg/dL (65-110); Magnesium 2.0 mg/dL (1.6-2.3); Potassium 3.9 mmol/L (3.4-5.0); Sodium 140 mmol/L (137-145); Total Protein 7.0 g/dL (6.3-8.2)
[2024-12-15 07:36] LABS: Free T4 Free Thyroxine 0.79 ng/dL (0.78-2.19)
[2024-12-15 07:38] LABS: Thyroid Stimulating Hormone 6.120 uIU/mL (0.465-4.680)
[2024-12-15] MEDS: IPRATROPIUM 0.5 MG/ALBUTEROL SULFATE 2.5 MG AMPUL.NEB 3 ML INHALATION (07:56)
[2024-12-15] MEDS: guaiFENesin 12 HR 600 MG TABCR 1200 MG PO ×2 (08:29→21:09)
[2024-12-15] MEDS: SALINE 0.65% NAS SOLN 44 ML BTL 3 SPRAY NASAL ×3 (08:29→17:04)
--- NOTE | 2024-12-15 10:22 | PM.PNPUL ---
Progress Note: A&P Assessment and Plan (1) Community acquired pneumonia: Qualifiers: Laterality: unspecified laterality Qualified Code(s): J18.9 - Pneumonia, unspecified organism Code(s): J18.9 - Pneumonia, unspecified organism Status: Acute Assessment and Plan: 12/14/24: patient presents with worsening shortness of breath, leukocytosis, bilateral upper lobe infiltrates, wheezing. of note patient is also living in a house that is under construction with mold in the mendieta and she is also exposed to cats sometimes she develops worsening nasal congestion with exposure to the cats. Currently she is on room air with saturations 93%. Plan: Patient is improved and says that her cough is better, her phlegm is improved she has no rest shortness of breath but still has dyspnea on exertion, leukocytosis has resolved and she is afebrile. agree with levofloxacin 750 mg p.o. q.day, guaifenesin 1200 p.o. b.i.d. and DuoNebs q.6 hours. Patient will need a home O2 prior to discharge. I will send the respiratory pathogen panel. 12/15/24: Patient states she is doing a little bit better. She mostly complains of nasal congestion and nasal mucus that clocks her right ear and drips into her throat and has difficulty expectorating this. She does have a cough and feels that the cough is increased and is looser. She denies fever, chills, rigors. She has no rest shortness of breath. She had dyspnea on exertion walking to the bathroom. Currently she is on room air with saturation 96%. She is afebrile. White blood cell count 8.6, creatinine 0.61. Plan: Continue levofloxacin, day 3, day 4 total antibiotics. Continue guaifenesin 1200 p.o. b.i.d.. She is not convinced the DuoNebs are helping her and has had trouble with inhalers at home making her cough worse and I will discontinue the DuoNebs at this time and follow her clinically. Respiratory pathogen panel, urine Legionella, urine pneumococcal studies pending. if patient continues to improve will consider discharge on 12/16/2024. Discussed with Dr. Funez,Will follow with you. (2) Morbid obesity with BMI of 50.0-59.9, adult: Code(s): E66.01 - Morbid (severe) obesity due to excess calories; Z68.43 - Body mass index [BMI] 50.0-59.9, adult Status: Acute Assessment and Plan: 12/14/24: Patient is morbidly obese with a BMI of 53.0, she snores, no sleeping partner but has never been told she stops breathing in her sleep, she takes 1 nap a day. ABG on 3 L 7.40/46/69. TSH 4.92 on 10/22/2023 Plan: patient has no elevated PaCO2 of 46 but does not reach the threshold to qualify for noninvasive ventilation for obesity hypoventilation syndrome which is a level of 52 or greater. She may have a sleep-related breathing disorder and will require an outpatient sleep study. I will order an overnight oximetry on room air to assess for nocturnal hypoxemia. I will order an echocardiogram to assess LV function, RV function and pulmonary pressures. I will order TSH and free T4. 12/15/24: Patient said she slept well with no oxygen. TSH 6.12 elevated, free T4 0.79, normal. Patient had an overnight oximetry on room air with recording duration of 7 hours and 22 minutes. Average saturation 89%. Low saturation 81%. Time with saturation less than or equal to 88% was 153 minutes. Oxygen desaturation index 6.2. Plan: Patient has nocturnal hypoxemia and will qualify for home oxygen at night. Tonight or perform an overnight oximetry on 2 L. she will need an outpatient sleep study. Echocardiogram pending. Subjective Date/time seen: 12/15/24 10:22 Interval history: 12/14/2024: This is a new pulmonary consult for obesity hypoventilation syndrome. 64-year-old with a history of hypertension, nasal polyps and obesity. Patient has a history of a fall with nose trauma in 2019 and since then has had nasal congestion and drainage. In September of 2024 she went [facility] with sinus congestion and drainage to the throat and was given doxycycline. Her nasal drainage got worse. 10/26/2024 through 10/29/2024. Admitted to [facility] With antibiotics and discharged on prednisone, Augmentin and azithromycin. She felt better when she was discharged and did well for the next 2 weeks. At that time she was having work done in her house and there was mold in the mendieta and the construction cruise were painting. She developed a slight cough with some chest tightness an upper wheezing. She went to her PCP on 12/03/2024 and was prescribed Augmentin which she started on 12/06/2024. On 12/08/2024 she notices her breathing was worse, her phlegm increased and she developed welts and skin rashes. She stop the Augmentin. On 12/10 her breathing was worse. She had dyspnea on exertion but no rest shortness of breath. On 12/12, She presented to the ED with blood pressure of 189/113, heart rate 118, room air saturations 89% and with 2 L her saturations were 100%. she was treated with DuoNeb and magnesium and given 30 mL/kilos. Her white blood cell count was 13.1, creatinine was 0.61, her BNP was 174, her eosinophils were 0.7%. MRSA swab negative. COVID influenza RSV RT PCR assay negative. She had a CT angiogram of the chest that showed no PE with bilateral pleural lobe infiltrates. She was started on vancomycin and cefepime. on 12/13 she was changed to Levaquin and prednisone was started. Patient was seen by ENT and she has a right deviation of her septum with crusting and obstruction on the right recommended saline 3 sprays each nostril 3 times a day for 10 days. 12/14/2024: Patient states she is better, she still has some 5 phlegm production that feels mainly in her throat. She has no rest shortness of breath her dyspnea on exertion is 50% back to her baseline. She has minimal cough. The patient states that she snores but has no breathing partner but was never told she has apneic events. She takes 1 nap a day and does not wake up with grounds. When I enter the room she was on 1.5 L nasal cannula saturations 93%. I placed her on room air and after 24 minutes her saturations were 93%. Her white blood cell count is 7.2, creatinine is 0.49. Her weight is 119 kilos and cumulative she is positive 7.2 L since admission. Patient also states she is exposed to 2 cats, and at times she notices that her nasal congestion is worse when she is heavily exposed to these cats. 12/15/24: Patient states she is doing a little bit better. She mostly complains of nasal congestion and nasal mucus that clocks her right ear and drips into her throat and has difficulty expectorating this. She does have a cough and feels that the cough is increased and is looser. She denies fever, chills, rigors. She has no rest shortness of breath. She had dyspnea on exertion walking to the bathroom. Currently she is on room air with saturation 96%. She is afebrile. White blood cell count 8.6, creatinine 0.61. TSH 6.12 elevated, free T4 0.79, normal. Patient had an overnight oximetry on room air with recording duration of 7 hours and 22 minutes. Average saturation 89%. Low saturation 81%. Time with saturation less than or equal to 88% was 153 minutes. Oxygen desaturation index 6.2. DATA: EXAMINATION: CTA chest PE protocol DATE: 12/12/2024 18:37 INDICATION: hypoxia, tachy, recent hospitalization TECHNIQUE: Computed tomography angiography (CTA) of the chest was performed with 100 mL Omnipaque-350 intravenous contrast timed to evaluate the pulmonary arteries. Coronal maximum intensity projection 3D-reconstructions were created by the technologist. The dose-length product (DLP) was 961.79 mGy-cm. Automated exposure control and iterative reconstruction technique were employed. COMPARISON: None. FINDINGS: Lung parenchyma and airways: Considerable motion artifact. Calcified right lower lobe granuloma. Subsegmental areas of peribronchovascular consolidation and groundglass in the bilateral upper lobes. Pleura: Unremarkable. Thoracic inlet, axillae and chest wall: Unremarkable. Thoracic aorta: No significant dilation. No dissection. Minimal arch calcification. Mediastinum: Dilated central pulmonary arteries. Calcified nodes. Heart and pericardium: Normal. Coronary artery calcifications: Absent. Upper abdomen: Cholelithiasis, without inflammatory change. Small hiatal hernia. Mild bilateral renal cortical thinning and scarring. Bones: No acute osseous finding. Pulmonary arteries: Study quality: Significant motion artifact, beam hardening, and quantum mottle limits this study. Nondiagnostic imaging of the subsegmental pulmonary arteries. No central or definite segmental pulmonary emboli detected. IMPRESSION: Limited examination. No central embolus. No definite segmental embolus noting that evaluation is somewhat limited. Nondiagnostic imaging of the subsegmental pulmonary arteries. Upper lobe opacities may represent edema or infection. Review of Systems Constitutional: Constitutional: Reports no additional constitutional complaints Eyes: Eyes: Reports no additional eye complaints ENT: Reports system reviewed and no additional complaints, except as documented Cardiovascular: Cardiovascular: Reports no additional cardiovascular complaints Respiratory: Respiratory: Reports no additional respiratory complaints Gastrointestinal: Gastrointestinal: Reports no additional gastrointestinal complaints Musculoskeletal: Musculoskeletal: Reports no additional musculoskeletal complaints Neurologic: Reports system reviewed and no additional complaints, except as documented Psychiatric: Psychiatric: Reports no additional psychiatric complaints Endocrine: Endocrine: Reports no additional endocrine complaints Hematologic/Lymphatic: Hematologic/Lymphatic: Reports no additional hematologic/lymphatic complaints Allergic/Immunologic: Allergic/Immunologic: Reports no additional allergic/immunologic complaints Exam Const: General: cooperative and comfortable Orientation/consciousness: oriented to person, oriented to place and oriented to time Other: obese HENMT: Head: normal to inspection Ears: hearing grossly normal bilaterally Eyes: General: appearance normal, both eyes and all related structures Neck: Neck: normal visual inspection Chest: Chest palpation & inspection: normal inspection of the chest Resp: Effort & Inspection: normal respiratory effort and able to speak in complete sentences Auscultation: crackles, no rales, no rhonchi, no wheezes and lung sounds not diminished Other: improved Bilateral upper lobe crackles Cardio: Jugular venous distension: no JVD GI: Inspection: normal to inspection Other: morbid obesity Skin: General skin exam: normal color Neuro: General: oriented to person, oriented to place and oriented to time Extrem: General: normal to inspection and no edema Psych: Appearance: grossly normal Objective Data Vital Signs Vital Signs: Vital Signs - 24 hr 12/14/24 12:00 12/14/24 12:10 12/14/24 13:48 Temperature 36.0 C L Pulse Rate 96 89 Respiratory Rate 18 20 Blood Pressure 177/95 H 171/81 H Pulse Oximetry 95 Oxygen Delivery Fraction of Inspired Oxygen 12/14/24 14:01 12/14/24 16:00 12/14/24 16:19 Temperature Pulse Rate 92 Respiratory Rate 20 Blood Pressure 156/72 H Pulse Oximetry 91 Oxygen Delivery Room Air Fraction of Inspired Oxygen 12/14/24 17:40 12/14/24 20:00 12/14/24 20:00 Temperature 36.6 C Pulse Rate 96 90 Respiratory Rate 16 20 Blood Pressure 174/87 H Pulse Oximetry 94 92 94 Oxygen Delivery Room Air Room Air Fraction of Inspired Oxygen 28 12/14/24 20:06 12/14/24 20:17 12/14/24 20:17 Temperature Pulse Rate 89 90 Respiratory Rate 20 20 Blood Pressure Pulse Oximetry 94 Oxygen Delivery Room Air Fraction of Inspired Oxygen 12/14/24 23:15 12/14/24 23:53 12/15/24 04:00 Temperature 36.4 C 36.5 C Pulse Rate 100 91 Respiratory Rate 18 16 Blood Pressure 156/76 H 144/70 H Pulse Oximetry 94 96 94 Oxygen Delivery Room Air Fraction of Inspired Oxygen 12/15/24 07:34 12/15/24 07:58 12/15/24 08:00 Temperature 36.2 C L Pulse Rate 87 88 Respiratory Rate 22 H 20 Blood Pressure 151/73 H Pulse Oximetry 95 95 Oxygen Delivery Room Air Fraction of Inspired Oxygen 12/15/24 08:01 Temperature Pulse Rate Respiratory Rate Blood Pressure Pulse Oximetry 91 Oxygen Delivery Room Air Fraction of Inspired Oxygen Intake/Output Intake/Output: Intake & Output 12/12/24 12/13/24 12/14/24 12/15/24 23:59 23:59 23:59 23:59 Intake Total 1100 4513 3816 900 Output Total 1200 Balance 1100 3313 3816 900 Meds/Results Medications: Active Medications Generic Name Dose Route Start Last Admin Trade Name Freq PRN Reason Stop Dose Admin Acetaminophen 650 mg 12/12/24 19:20 12/14/24 06:35 Acetaminophen 325 Mg Tablet PO 650 mg Q4H PRN Administration Mild Pain (1-3) or Fever Enoxaparin Sodium 40 mg 12/12/24 21:25 12/15/24 08:27 Enoxaparin 40 Mg/0.4 Ml Syringe SUB-Q Not Given Q12HR NIURKA Guaifenesin 1,200 mg 12/13/24 15:00 12/15/24 08:29 Guaifenesin 12 Hr 600 Mg Tabcr PO 1,200 mg Q12HR NIURKA Administration Levofloxacin 750 mg 12/13/24 10:20 12/15/24 08:29 Levofloxacin 750 Mg Tablet PO 12/17/24 09:01 750 mg DAILY NIURKA Administration Lisinopril 10 mg 12/13/24 09:00 12/15/24 08:29 Lisinopril 10 Mg Tablet PO 10 mg DAILY NIURKA Administration Ondansetron HCl 4 mg 12/12/24 19:20 Ondansetron Inj 4 Mg/2 Ml Vial IV PUSH Q4H PRN Nausea Perflutren Lipid Microsphere 0 ml 12/14/24 16:25 Perflutren Lipid Microspheres 1.5 Ml Vial Diluted To 10 Ml Total Volume IV PUSH 12/17/24 16:25 ONCE PRN adequate visualization Protocol Sodium Chloride 1 spray 12/13/24 06:03 Saline 0.65% Kunal Soln 44 Ml Btl NASAL Q6HR PRN Congestion Sodium Chloride 3 spray 12/14/24 09:00 12/15/24 08:29 Saline 0.65% Kunal Soln 44 Ml Btl NASAL 3 spray TID NIURKA Administration Radiology Results: ITS Impressions Chest X-Ray 12/12/24 16:19 IMPRESSION: No acute cardiopulmonary process. Chest CTA 12/12/24 18:46 IMPRESSION: Limited examination. No central embolus. No definite segmental embolus noting that evaluation is somewhat limited. Nondiagnostic imaging of the subsegmental pulmonary arteries. Upper lobe opacities may represent edema or infection. Sinuses CT 12/14/24 08:02 IMPRESSION: 1. Moderate pansinus disease. Labs Labs: Laboratory Results - last 24 hr 12/14/24 12/15/24 15:12 05:56 WBC 8.6 RBC 4.97 Hgb 13.2 Hct 42.7 MCV 85.9 MCH 26.6 MCHC 30.9 L RDW 15.5 H Plt Count 270 MPV 9.3 Immature Gran % (Auto) 0.5 Neut % (Auto) 56.1 Lymph % (Auto) 34.3 [place] % (Auto) 7.9 Eos % (Auto) 0.9 Baso % (Auto) 0.3 Lymph # (Auto) 2.96 [place] # (Auto) 0.7 H Eos # (Auto) 0.1 Baso # (Auto) 0.0 Abs Immat Gran (auto) 0.04 H Absolute Neuts (auto) 4.8 Absolute Nucleated RBC 0.000 Nucleated RBC % 0.0 Sodium 140 Potassium 3.9 Chloride 105 Carbon Dioxide 29 Anion Gap 6 BUN 13 Creatinine 0.61 L Estim Creat Clear Calc Not Reportable Estimated GFR > 60 Glucose 89 Calcium 8.8 Magnesium 2.0 Total Bilirubin 0.4 AST 26 ALT 17 Alkaline Phosphatase 65 Total Protein 7.0 Albumin 3.7 TSH 6.120 H Free T4 0.79 IgG 1248 IgA 425 H IgM 63
--- NOTE | 2024-12-15 11:42 | P.PNIM_ITS ---
Progress Note: A&P Assessment and Plan (1) Pneumonia: Qualifiers: Laterality: bilateral Lung location: upper lobe of lung Pneumonia type: due to unspecified organism Qualified Code(s): J18.9 - Pneumonia, unspecified organism Code(s): J18.9 - Pneumonia, unspecified organism Status: Acute Assessment and Plan: Patient found to be hypercapnic on his ABG Currently on 3 L nasal cannula with no respiratory distress Reviewed CTA chest Day 3 on levofloxacin Chest x-ray and ABG reviewed Quad screen negative Continue bronchodilators Comorbid condition : JOVI Monitor vitals Monitor culture monitor (2) Hypoxemia requiring supplemental oxygen: Code(s): R09.02 - Hypoxemia; Z99.81 - Dependence on supplemental oxygen Status: Acute Assessment and Plan: As above (3) Acute dehydration: Code(s): E86.0 - Dehydration Status: Acute Assessment and Plan: Encourage oral hydration (4) Morbid obesity with BMI of 50.0-59.9, adult: Code(s): E66.01 - Morbid (severe) obesity due to excess calories; Z68.43 - Body mass index [BMI] 50.0-59.9, adult Status: Acute Assessment and Plan: Needs endocrinology/PCP outpatient follow-up for obesity (5) Chronic hypercapnia: Code(s): R06.89 - Other abnormalities of breathing Status: Acute Assessment and Plan: Undiagnosed JOVI Apnea link (6) Hypertension: Qualifiers: Hypertension type: primary hypertension Qualified Code(s): I10 - Essential (primary) hypertension Code(s): I10 - Essential (primary) hypertension Status: Chronic Assessment and Plan: Possibly contributing factor with SHIREEN and obesity Continue home medication (7) Polycythemia: Code(s): D75.1 - Secondary polycythemia Status: Acute Assessment and Plan: resolved (8) Nasal septal deviation: Code(s): J34.2 - Deviated nasal septum Status: Acute Assessment and Plan: Deviated nasal septum/nasal polyps Sinus CT showed Moderate pansinusitis ENT following Plan Norturnal hypoxemia patient's pCO2 was 56 on admission Hemant mejia noted and recommended overnight oximetry which showed hypoxemia to repeat overnight oximetry on supplemental oxygen DVT prophylaxis on Sq lovenox Subjective Date/time seen: 12/15/24 11:42 Interval history: Comfortable at bedside For overnight oximetry tonight on oxygen Review of Systems Review of Systems: 12 systems were reviewed with pertinent positives and negatives per HPI. Except as documented in the HPI, all other systems were reviewed and are negative. Exam Narrative: Weight 118.3 kg BMI 52.7 Const: Other: Morbidly obese, no acute distress, appears stated age HENMT: Other: Mucous membranes are moist, fair dentition, no oral pharyngeal erythema, crowded posterior oropharynx, nasal cannula in place Eyes: Other: Pupils are equal and reactive, no scleral icterus, no conjunctival pallor Neck: Other: Large neck circumference, no JVD Resp: Other: Wheezing both posterior and anterior lung allison worsen anterior upper lung allison, no crackles, conversational tachypnea Cardio: Other: Sinus tachycardia, 2+ bilateral radial pedal pulses, no JVD, no murmur GI: Other: Morbidly obese, soft, nontender, normoactive bowel sounds : Other: Unable to evaluate patient's still groin or pannus folds due to the weight of her lipedema Skin: Other: Slight erythema to the dependent edema of the lower abdomen in the area of the mons, no rash, abdominal scar vertical just to the right of midline due to positioning Neuro: Other: Alert oriented, speech is clear, no facial asymmetry, no localizing neurologic deficits noted during the course of conversation Extrem: Other: No clubbing, cyanosis or edema, moves all extremities equally Psych: Other: Pleasant and cooperative, perseverating on symptomatology, fair insight Objective Data Vital Signs Vital Signs: Vital Signs - 24 hr 12/14/24 12:00 12/14/24 12:10 12/14/24 13:48 Temperature 96.8 F L Pulse Rate 96 89 Respiratory Rate 18 20 Blood Pressure 177/95 H 171/81 H Pulse Oximetry 95 Oxygen Delivery Fraction of Inspired Oxygen 12/14/24 14:01 12/14/24 16:00 12/14/24 16:19 Temperature Pulse Rate 92 Respiratory Rate 20 Blood Pressure 156/72 H Pulse Oximetry 91 Oxygen Delivery Room Air Fraction of Inspired Oxygen 12/14/24 17:40 12/14/24 20:00 12/14/24 20:00 Temperature 97.9 F Pulse Rate 96 90 Respiratory Rate 16 20 Blood Pressure 174/87 H Pulse Oximetry 94 92 94 Oxygen Delivery Room Air Room Air Fraction of Inspired Oxygen 28 12/14/24 20:06 12/14/24 20:17 12/14/24 20:17 Temperature Pulse Rate 89 90 Respiratory Rate 20 20 Blood Pressure Pulse Oximetry 94 Oxygen Delivery Room Air Fraction of Inspired Oxygen 12/14/24 23:15 12/14/24 23:53 12/15/24 04:00 Temperature 97.6 F 97.7 F Pulse Rate 100 91 Respiratory Rate 18 16 Blood Pressure 156/76 H 144/70 H Pulse Oximetry 94 96 94 Oxygen Delivery Room Air Fraction of Inspired Oxygen 12/15/24 07:34 12/15/24 07:58 12/15/24 08:00 Temperature 97.2 F L Pulse Rate 87 88 Respiratory Rate 22 H 20 Blood Pressure 151/73 H Pulse Oximetry 95 95 Oxygen Delivery Room Air Fraction of Inspired Oxygen 12/15/24 08:01 Temperature Pulse Rate Respiratory Rate Blood Pressure Pulse Oximetry 91 Oxygen Delivery Room Air Fraction of Inspired Oxygen Intake/Output Intake/Output: Intake & Output 12/12/24 12/13/24 12/14/24 12/15/24 23:59 23:59 23:59 23:59 Intake Total 1100 4513 3816 1140 Output Total 1200 Balance 1100 3313 3816 1140 Meds/Results Medications: Active Medications Generic Name Dose Route Start Last Admin Trade Name Freq PRN Reason Stop Dose Admin Acetaminophen 650 mg 12/12/24 19:20 12/14/24 06:35 Acetaminophen 325 Mg Tablet PO 650 mg Q4H PRN Administration Mild Pain (1-3) or Fever Enoxaparin Sodium 40 mg 12/12/24 21:25 12/15/24 08:27 Enoxaparin 40 Mg/0.4 Ml Syringe SUB-Q Not Given Q12HR NIURKA Guaifenesin 1,200 mg 12/13/24 15:00 12/15/24 08:29 Guaifenesin 12 Hr 600 Mg Tabcr PO 1,200 mg Q12HR NIURKA Administration Levofloxacin 750 mg 12/13/24 10:20 12/15/24 08:29 Levofloxacin 750 Mg Tablet PO 12/17/24 09:01 750 mg DAILY NIURKA Administration Lisinopril 10 mg 12/13/24 09:00 12/15/24 08:29 Lisinopril 10 Mg Tablet PO 10 mg DAILY NIURKA Administration Ondansetron HCl 4 mg 12/12/24 19:20 Ondansetron Inj 4 Mg/2 Ml Vial IV PUSH Q4H PRN Nausea Perflutren Lipid Microsphere 0 ml 12/14/24 16:25 Perflutren Lipid Microspheres 1.5 Ml Vial Diluted To 10 Ml Total Volume IV P [facility] 12/17/24 16:25 ONCE PRN adequate visualization Protocol Sodium Chloride 1 spray 12/13/24 06:03 Saline 0.65% Kunal Soln 44 Ml Btl NASAL Q6HR PRN Congestion Sodium Chloride 3 spray 12/14/24 09:00 12/15/24 08:29 Saline 0.65% Kunal Soln 44 Ml Btl NASAL 3 spray TID NIURKA Administration Radiology Results: ITS Impressions Chest X-Ray 12/12/24 16:19 IMPRESSION: No acute cardiopulmonary process. Chest CTA 12/12/24 18:46 IMPRESSION: Limited examination. No central embolus. No definite segmental embolus noting that evaluation is somewhat limited. Nondiagnostic imaging of the subsegmental pulmonary arteries. Upper lobe opacities may represent edema or infection. Sinuses CT 12/14/24 08:02 IMPRESSION: 1. Moderate pansinus disease. Labs Labs: Laboratory Results - last 24 hr 12/14/24 12/15/24 15:12 05:56 WBC 8.6 RBC 4.97 Hgb 13.2 Hct 42.7 MCV 85.9 MCH 26.6 MCHC 30.9 L RDW 15.5 H Plt Count 270 MPV 9.3 Immature Gran % (Auto) 0.5 Neut % (Auto) 56.1 Lymph % (Auto) 34.3 [place] % (Auto) 7.9 Eos % (Auto) 0.9 Baso % (Auto) 0.3 Lymph # (Auto) 2.96 [place] # (Auto) 0.7 H Eos # (Auto) 0.1 Baso # (Auto) 0.0 Abs Immat Gran (auto) 0.04 H Absolute Neuts (auto) 4.8 Absolute Nucleated RBC 0.000 Nucleated RBC % 0.0 Sodium 140 Potassium 3.9 Chloride 105 Carbon Dioxide 29 Anion Gap 6 BUN 13 Creatinine 0.61 L Estim Creat Clear Calc Not Reportable Estimated GFR > 60 Glucose 89 Calcium 8.8 Magnesium 2.0 Total Bilirubin 0.4 AST 26 ALT 17 Alkaline Phosphatase 65 Total Protein 7.0 Albumin 3.7 TSH 6.120 H Free T4 0.79 IgG 1248 IgA 425 H IgM 63 Quality VTE Prophylaxis VTE prophylaxis: pharmacologic ordered (Lovenox 40 mg subQ q.12 hours.)
[2024-12-15] MEDS: ACETAMINOPHEN 325 MG TABLET 650 MG PO (12:18)
[2024-12-15] MEDS: PERFLUTREN LIPID MICROSPHERES 1.5 ML VIAL DILUTED TO 10 ML TOTAL VOLUME IV PUSH (16:08)
--- NOTE | 2024-12-15 16:08 | IVDEFINITY ---
Prior to administration of IV Definity the patient was educated on the risks and benefits of the imaging enhancing agent including potential adverse side effects. The patient verbalized understanding. Allergies were verified. No exclusion criteria were identified and at least one of the following inclusion criteria were met: 1) physician request, 2) patient technically difficult to image (per the [place] [employer] guidelines of two or more segments not discernable within the apical view), or 3) questionable left ventricular function. ?
--- NOTE | 2024-12-15 16:25 | ECHO_ITS ---
Patient Info Name: Zenaida Heart Age: 64 years : 1960 Gender: Female Ht: 59 in Wt: 262 lbs BSA: 2.31 m2 HR: 92 bpm BP: 151 / 73 mmHg Technical Quality: Fair Exam Date: 12/15/2024 1:31 PM Patient Status: I Admit Date: 12/12/2024 Exam Type: CA echo dop color flow w con Complete two-dimensional, color flow and Doppler transthoracic echocardiogram is performed with contrast to opacify the left ventricle and to improve the deliniation of the left ventricle endocardial borders. Staff Referring Physician: Flavia Warren Business Attorney: Jessica Hinojosa Attending Provider: Pauline Matta DO Contrast/Agitated Saline Contrast/Ag. Saline: Definity Amount: 4.00 ml Administered By: Jessica Hinojosa Summary 1. Definity contrast administered improved wall motion interpretation. 2. Left ventricular chamber dimension is normal. 3. Left ventricular systolic function is normal, estimated at 65-70. 4. There is mild concentric increased left ventricular wall thickness. 5. The left ventricular diastolic function is grade I diastolic dysfunction. 6. E/e' 11 is mildly elevated. 7. Dilated inferior vena cava with >50% collapse upon inspiration consistent with elevated right atrial pressure, 10 mmHg. Left Ventricle E/e' 11 is mildly elevated. Left ventricular chamber dimension is normal. Left ventricular systolic function is normal, estimated at 65-70. There is mild concentric increased left ventricular wall thickness. The left ventricular diastolic function is grade I diastolic dysfunction. Definity contrast administered improved wall motion interpretation. Right Ventricle Right ventricular chamber dimension is not well visualized. Left Atria Left atrial chamber dimension is normal. Right Atria Right atrial chamber dimension is normal. Aortic Valve The aortic valve is trileaflet. There is no aortic valve sclerosis. There is no aortic valve stenosis. There is no aortic valve regurgitation. Pulmonic Valve There is no pulmonic regurgitation. Mitral Valve There is no mitral valve stenosis. There is no mitral valve regurgitation. Tricuspid Valve There is no tricuspid valve regurgitation. Pericardium/Pleural There is no pericardial effusion. Inferior Vena Cava Dilated inferior vena cava with >50% collapse upon inspiration consistent with elevated right atrial pressure, 10 mmHg. Aorta The aortic root size at the sinus of Valsalva is normal. Left Ventricular Outflow Tract Name Value Normal LVOT 2D LVOT Diameter 1.9 cm LVOT Doppler LVOT Peak Velocity 127 cm/s LVOT Peak Gradient 6 mmHg LVOT Mean Gradient 3 mmHg LVOT VTI 30 cm LVOT Stroke Volume 85 ml LVOT CO 7.8 l/min LVOT CI 3.4 l/min/m2 Pulmonic Valve Name Value Normal RVOT Doppler RVOT Peak Velocity 109 cm/s RVOT Peak Gradient 5 mmHg PV Doppler PV Peak Velocity 136 cm/s PV Peak Gradient 7 mmHg Mitral Valve Name Value Normal MV Diastolic Function MV E Peak Velocity 78 cm/s MV A Peak Velocity 116 cm/s MV E/A 0.7 MV Decel Time (PW) 218 ms MV Annular TDI MV E/e' (Septal) 13.7 MV E/e' (Lateral) 10.2 MV E/e' (Average) 12.0 Tricuspid Valve Name Value Normal Estimated PAP/RSVP RA Pressure 10 mmHg <=5 TV Annular TDI TV Lateral Kelli s' Velocity 9.3 cm/s >=9.5 Aortic Valve Name Value Normal AV Doppler AV Peak Velocity 190 cm/s AV Peak Gradient 15 mmHg AV Area (Cont Eq Cornelius) 1.9 cm2 AV DI (Cornelius) 0.67 AV Regurgitation 2D LVOT Area 2.9 cm2 Ventricles Name Value Normal LV Dimensions 2D/MM IVS Diastolic Thickness (2D) 1.1 cm 0.6-1.0 LVID Diastole (2D) 3.8 cm 3.8-5.2 LVIW Diastolic Thickness (2D) 1.3 cm 0.6-0.9 LVID Systole (2D) 2.6 cm 2.2-3.5 LVOT Diameter 1.9 cm LV Mass (2D Cubed) 149.57 g 67.00-162.00 LV Mass Index (2D Cubed) 65 g/m2 43-95 Relative Wall Thickness (2D) 0.67 <=0.42 LV Fractional Shortening/Ejection Fraction 2D/MM LV Fractional Shortening (2D) 32 % 27-45 LV EF (2D Teichholz) 61 % LV Diastolic Volume (4C MOD) 89 ml LV EF (4C MOD) 62 % LV Diastolic Volume (2C MOD) 96 ml LV EF (2C MOD) 64 % LV Diastolic Volume (BP MOD) 92 ml 46-106 LV Diastolic Volume Index (BP MOD) 40 ml/m2 29-61 LV Systolic Volume (BP MOD) 35 ml 14-42 LV Systolic Volume Index (BP MOD) 15 ml/m2 8-24 LV EF (BP MOD) 62 % 54-74 LV Diastolic Length (4C) 8.1 cm LV Systolic Length (4C) 6.8 cm LV Stroke Volume (4C MOD) 55 ml Atria Name Value Normal LA Dimensions LA Volume (4C A-L) 42 ml LA Volume (BP A-L) 37 ml RA Dimensions RA Systolic Major Orland Length (4C) 4.0 cm 2.2-2.8 RA Area (4C) 6.8 cm2 <=18.0 Report Signatures
[2024-12-15] MEDS: ENOXAPARIN 40 MG/0.4 ML SYRINGE SUB-Q (21:10)
[2024-12-16] VITALS: BP 152/79; PULSE 90; RESP 14; TEMP 36.2; O2SAT 97
[2024-12-16 04:00] VITALS: BP 141/78; PULSE 86; RESP 14; TEMP 36.2; O2SAT 97
[2024-12-16 06:16] LABS: Hematocrit 43.3 % (37.0-47.0); Hemoglobin 13.2 g/dL (12.0-15.0); Immature Granulocyte Percent A 0.4 % (0-0.5); Lymphocytes Absolute Auto 2.76 K/mm3 (0.9-3.2); Mean Corpuscular HGB Conc 30.5 g/dl (32-36); Mean Corpuscular Hemoglobin 26.5 pg (26-34); Mean Corpuscular Volume 86.8 fl (80-100); Nucleated Red Blood Cells Absolute Auto 0.000 K/mm3 (0.0-0.012); Nucleated Red Blood Cells Perc 0.0 % (0.0-0.2); Platelet Count Result 267 k/mm3 (150-375); Red Blood Count 4.99 M/mm3 (4.2-5.4); White Blood Count 8.1 K/mm3 (4.5-10.0)
[2024-12-16 06:33] LABS: Alanine Aminotransferase 16 U/L (6-35); Albumin Level 3.3 g/dL (3.5-5.1); Alkaline Phosphatase 71 U/L (38-126); Anion Gap 5 mmol/L (4-12); Aspartate Amino Transferase 24 U/L (14-36); Bilirubin,Total 0.3 mg/dL (0.2-1.3); Blood Urea Nitrogen 16 mg/dL (7-17); Calcium 8.3 mg/dL (8.4-10.2); Carbon Dioxide 30 mmol/L (22-30); Chloride 105 mmol/L (98-107); Estimated Glomerular Filt Rate > 60; Glucose 96 mg/dL (65-110); Magnesium 1.9 mg/dL (1.6-2.3); Potassium 3.7 mmol/L (3.4-5.0); Sodium 140 mmol/L (137-145); Total Protein 6.4 g/dL (6.3-8.2)
[2024-12-16 08:00] VITALS: BP 150/78; PULSE 92; RESP 14; TEMP 36.4; O2SAT 92
[2024-12-16] MEDS: SALINE 0.65% NAS SOLN 44 ML BTL 3 SPRAY NASAL (09:21)
[2024-12-16] MEDS: ENOXAPARIN 40 MG/0.4 ML SYRINGE SUB-Q (09:22)
[2024-12-16 09:30] VITALS: PULSE 100; O2SAT 94
--- NOTE | 2024-12-16 09:30 | P.PNPL_ITS ---
Progress Note: A&P Assessment and Plan (1) Community acquired pneumonia: Qualifiers: Laterality: unspecified laterality Qualified Code(s): J18.9 - Pneumonia, unspecified organism Code(s): J18.9 - Pneumonia, unspecified organism Status: Acute Assessment and Plan: 12/14/24: patient presents with worsening shortness of breath, leukocytosis, bilateral upper lobe infiltrates, wheezing. of note patient is also living in a house that is under construction with mold in the mendieta and she is also exposed to cats sometimes she develops worsening nasal congestion with exposure to the cats. Currently she is on room air with saturations 93%. Plan: Patient is improved and says that her cough is better, her phlegm is improved she has no rest shortness of breath but still has dyspnea on exertion, leukocytosis has resolved and she is afebrile. agree with levofloxacin 750 mg p.o. q.day, guaifenesin 1200 p.o. b.i.d. and DuoNebs q.6 hours. Patient will need a home O2 prior to discharge. I will send the respiratory pathogen panel. 12/15/24: Patient states she is doing a little bit better. She mostly complains of nasal congestion and nasal mucus that clocks her right ear and drips into her throat and has difficulty expectorating this. She does have a cough and feels that the cough is increased and is looser. She denies fever, chills, rigors. She has no rest shortness of breath. She had dyspnea on exertion walking to the bathroom. Currently she is on room air with saturation 96%. She is afebrile. White blood cell count 8.6, creatinine 0.61. Plan: Continue levofloxacin, day 3, day 4 total antibiotics. Continue guaifenesin 1200 p.o. b.i.d.. She is not convinced the DuoNebs are helping her and has had trouble with inhalers at home making her cough worse and I will discontinue the DuoNebs at this time and follow her clinically. Respiratory pathogen panel, urine Legionella, urine pneumococcal studies pending. if patient continues to improve will consider discharge on 12/16/2024. Later in the day patient had an echocardiogram. LVEF 65-70, grade 1 diastolic dysfunction, normal right atrial size. RV not visualized. No tricuspid regurg. 12/16/2024. Patient states she is breathing at her baseline. She has no rest shortness of breath. She has some dyspnea on exertion that is improved when she walks to the bathroom. She still complains of nasal congestion and phlegm in her throat. She feels the guaifenesin is giving her a sick stomach. Room air saturations 94%. White blood cell count 8.1, creatinine 0.66. Patient is not smoking. I recommended the patient remove her 2 cats from her house. If she can remove the cats from the house I told her the catch not sleep in her bedroom and she should get HEPA filter for her bedroom. Her previous complaint remains sinus congestion and drainage. Currently she is on normal saline nasal spray 3 puffs 3 times a day. She tells me she has taken an antihistamine previously but this makes her feel funny. From a pulmonary perspective patient is ready to be discharged on these pulmonary medications: Levaquin 750 mg p.o. q.day X 5day, last dose 12/21/24 oxygen per formal home O2 assessment which I have ordered. Oxygen when she naps or sleeps at 2 L nasal cannula. Follow-up in the Pulmonary Clinic 3-4 weeks. Patient should have outpatient PFTs and outpatient sleep study. 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 Discussed with Dr. Funez, will sign off. (2) Morbid obesity with BMI of 50.0-59.9, adult: Code(s): E66.01 - Morbid (severe) obesity due to excess calories; Z68.43 - Body mass index [BMI] 50.0-59.9, adult Status: Acute Assessment and Plan: 12/14/24: Patient is morbidly obese with a BMI of 53.0, she snores, no sleeping partner but has never been told she stops breathing in her sleep, she takes 1 nap a day. ABG on 3 L 7.40/46/69. TSH 4.92 on 10/22/2023 Plan: patient has no elevated PaCO2 of 46 but does not reach the threshold to qualify for noninvasive ventilation for obesity hypoventilation syndrome which is a level of 52 or greater. She may have a sleep-related breathing disorder and will require an outpatient sleep study. I will order an overnight oximetry on room air to assess for nocturnal hypoxemia. I will order an echocardiogram to assess LV function, RV function and pulmonary pressures. I will order TSH and free T4. 12/15/24: Patient said she slept well with no oxygen. TSH 6.12 elevated, free T4 0.79, normal. Patient had an overnight oximetry on room air with recording duration of 7 hours and 22 minutes. Average saturation 89%. Low saturation 81%. Time with saturation less than or equal to 88% was 153 minutes. Oxygen desaturation index 6.2. Plan: Patient has nocturnal hypoxemia and will qualify for home oxygen at night. Tonight or perform an overnight oximetry on 2 L. she will need an outpatient sleep study. Echocardiogram pending. 12/16/24: Patient had an overnight oximetry on 2 L with recording duration 6 hours and 29 minutes. Average saturation 94%. Low saturation 88%. Time with saturation less than or equal to 88% was 0 minutes. Oxygen desaturation index 1.5. Plan: 2 L nasal cannula naps or sleeps. Subjective Date/time seen: 12/16/24 09:30 Interval history: 12/14/2024: This is a new pulmonary consult for obesity hypoventilation syndrome. 64-year-old with a history of hypertension, nasal polyps and obesity. Patient has a history of a fall with nose trauma in 2019 and since then has had nasal congestion and drainage. In September of 2024 she went [facility] with sinus congestion and drainage to the throat and was given doxycycline. Her nasal drainage got worse. 10/26/2024 through 10/29/2024. Admitted to [facility] With antibiotics and discharged on prednisone, Augmentin and azithromycin. She felt better when she was discharged and did well for the next 2 weeks. At that time she was having work done in her house and there was mold in the mendieta and the construction cruise were painting. She developed a slight cough with some chest tightness an upper wheezing. She went to her PCP on 12/03/2024 and was prescribed Augmentin which she started on 12/06/2024. On 12/08/2024 she notices her breathing was worse, her phlegm increased and she developed welts and skin rashes. She stop the Augmentin. On 12/10 her breathing was worse. She had dyspnea on exertion but no rest shortness of breath. On 12/12, She presented to the ED with blood pressure of 189/113, heart rate 118, room air saturations 89% and with 2 L her saturations were 100%. she was treated with DuoNeb and magnesium and given 30 mL/kilos. Her white blood cell count was 13.1, creatinine was 0.61, her BNP was 174, her eosinophils were 0.7%. MRSA swab negative. COVID influenza RSV RT PCR assay negative. She had a CT angiogram of the chest that showed no PE with bilateral pleural lobe infiltrates. She was started on vancomycin and cefepime. on 12/13 she was changed to Levaquin and prednisone was started. Patient was seen by ENT and she has a right deviation of her septum with crusting and obstruction on the right recommended saline 3 sprays each nostril 3 times a day for 10 days. 12/14/2024: Patient states she is better, she still has some 5 phlegm production that feels mainly in her throat. She has no rest shortness of breath her dyspnea on exertion is 50% back to her baseline. She has minimal cough. The patient states that she snores but has no breathing partner but was never told she has apneic events. She takes 1 nap a day and does not wake up with grounds. When I enter the room she was on 1.5 L nasal cannula saturations 93%. I placed her on room air and after 24 minutes her saturations were 93%. Her white blood cell count is 7.2, creatinine is 0.49. Her weight is 119 kilos and cumulative she is positive 7.2 L since admission. Patient also states she is exposed to 2 cats, and at times she notices that her nasal congestion is worse when she is heavily exposed to these cats. 12/15/24: Patient states she is doing a little bit better. She mostly complains of nasal congestion and nasal mucus that clocks her right ear and drips into her throat and has difficulty expectorating this. She does have a cough and feels that the cough is increased and is looser. She denies fever, chills, rigors. She has no rest shortness of breath. She had dyspnea on exertion walking to the bathroom. Currently she is on room air with saturation 96%. She is afebrile. White blood cell count 8.6, creatinine 0.61. TSH 6.12 elevated, free T4 0.79, normal. Patient had an overnight oximetry on room air with recording duration of 7 hours and 22 minutes. Average saturation 89%. Low saturation 81%. Time with saturation less than or equal to 88% was 153 minutes. Oxygen desaturation index 6.2. DuoNebs were discontinued. Later in the day patient had an echocardiogram. LVEF 65-70, grade 1 diastolic dysfunction, normal right atrial size. RV not visualized. No tricuspid regurg. 12/16/2024. Patient states she is breathing at her baseline. She has no rest shortness of breath. She has some dyspnea on exertion that is improved when she walks to the bathroom. She still complains of nasal congestion and phlegm in her throat. She feels the guaifenesin is giving her a sick stomach. Room air saturations 94%. White blood cell count 8.1, creatinine 0.66. Patient had an overnight oximetry on 2 L with recording duration 6 hours and 29 minutes. Average saturation 94%. Low saturation 88%. Time with saturation less than or equal to 88% was 0 minutes. Oxygen desaturation index 1.5. DATA: 12/16/24: Patient had an overnight oximetry on 2 L with recording duration 6 hours and 29 minutes. Average saturation 94%. Low saturation 88%. Time with saturation less than or equal to 88% was 0 minutes. Oxygen desaturation index 1.5. 12/15/24: Patient had an overnight oximetry on room air with recording duration of 7 hours and 22 minutes. Average saturation 89%. Low saturation 81%. Time with saturation less than or equal to 88% was 153 minutes. Oxygen desaturation index 6.2. 12/15/24: Echo Summary 1. Definity contrast administered improved wall motion interpretation. 2. Left ventricular chamber dimension is normal. 3. Left ventricular systolic function is normal, estimated at 65-70. 4. There is mild concentric increased left ventricular wall thickness. 5. The left ventricular diastolic function is grade I diastolic dysfunction. 6. E/e' 11 is mildly elevated. 7. Dilated inferior vena cava with >50% collapse upon inspiration consistent with elevated right atrial pressure, 10 mmHg. Left Ventricle E/e' 11 is mildly elevated. Left ventricular chamber dimension is normal. Left ventricular systolic function is normal, estimated at 65-70. There is mild concentric increased left ventricular wall thickness. The left ventricular diastolic function is grade I diastolic dysfunction. Definity contrast administered improved wall motion interpretation. Right Ventricle Right ventricular chamber dimension is not well visualized. Left Atria Left atrial chamber dimension is normal. Right Atria Right atrial chamber dimension is normal. EXAMINATION: CTA chest PE protocol DATE: 12/12/2024 18:37 INDICATION: hypoxia, tachy, recent hospitalization TECHNIQUE: Computed tomography angiography (CTA) of the chest was performed with 100 mL Omnipaque-350 intravenous contrast timed to evaluate the pulmonary arteries. Coronal maximum intensity projection 3D-reconstructions were created by the technologist. The dose-length product (DLP) was 961.79 mGy-cm. Automated exposure control and iterative reconstruction technique were employed. COMPARISON: None. FINDINGS: Lung parenchyma and airways: Considerable motion artifact. Calcified right lower lobe granuloma. Subsegmental areas of peribronchovascular consolidation and groundglass in the bilateral upper lobes. Pleura: Unremarkable. Thoracic inlet, axillae and chest wall: Unremarkable. Thoracic aorta: No significant dilation. No dissection. Minimal arch calcification. Mediastinum: Dilated central pulmonary arteries. Calcified nodes. Heart and pericardium: Normal. Coronary artery calcifications: Absent. Upper abdomen: Cholelithiasis, without inflammatory change. Small hiatal hernia. Mild bilateral renal cortical thinning and scarring. Bones: No acute osseous finding. Pulmonary arteries: Study quality: Significant motion artifact, beam hardening, and quantum mottle limits this study. Nondiagnostic imaging of the subsegmental pulmonary arteries. No central or definite segmental pulmonary emboli detected. IMPRESSION: Limited examination. No central embolus. No definite segmental embolus noting that evaluation is somewhat limited. Nondiagnostic imaging of the subsegmental pulmonary arteries. Upper lobe opacities may represent edema or infection. Review of Systems Constitutional: Constitutional: Reports no additional constitutional complaints Eyes: Eyes: Reports no additional eye complaints ENT: Reports system reviewed and no additional complaints, except as documented Cardiovascular: Cardiovascular: Reports no additional cardiovascular complaints Respiratory: Respiratory: Reports no additional respiratory complaints Gastrointestinal: Gastrointestinal: Reports no additional gastrointestinal complaints Musculoskeletal: Musculoskeletal: Reports no additional musculoskeletal complaints Neurologic: Reports system reviewed and no additional complaints, except as documented Psychiatric: Psychiatric: Reports no additional psychiatric complaints Endocrine: Endocrine: Reports no additional endocrine complaints Hematologic/Lymphatic: Hematologic/Lymphatic: Reports no additional hematologic/lymphatic complaints Allergic/Immunologic: Allergic/Immunologic: Reports no additional allergic/immunologic complaints Exam Const: General: cooperative and comfortable Orientation/consciousness: oriented to person, oriented to place and oriented to time Other: obese HENMT: Head: normal to inspection Ears: hearing grossly normal bilaterally Eyes: General: appearance normal, both eyes and all related structures Neck: Neck: normal visual inspection Chest: Chest palpation & inspection: normal inspection of the chest Resp: Effort & Inspection: normal respiratory effort and able to speak in complete sentences Auscultation: crackles, no rales, no rhonchi, no wheezes and lung sounds not diminished Other: Cardio: Jugular venous distension: no JVD GI: Inspection: normal to inspection Other: morbid obesity Skin: General skin exam: normal color Neuro: General: oriented to person, oriented to place and oriented to time Extrem: General: normal to inspection and no edema Psych: Appearance: grossly normal Objective Data Vital Signs Vital Signs: Vital Signs - 24 hr 12/15/24 12:00 12/15/24 15:26 12/15/24 20:00 Temperature 36.4 C L 34.3 C L 36.7 C Pulse Rate 95 94 91 Respiratory Rate 20 95 H 16 Blood Pressure 183/99 H 153/96 H 163/78 H Pulse Oximetry 95 20 L 94 12/16/24 00:00 12/16/24 04:00 12/16/24 08:00 Temperature 36.2 C L 36.2 C L 36.4 C Pulse Rate 90 86 92 Respiratory Rate 14 14 14 Blood Pressure 152/79 H 141/78 H 150/78 H Pulse Oximetry 97 97 92 Intake/Output Intake/Output: Intake & Output 12/13/24 12/14/24 12/15/24 12/16/24 23:59 23:59 23:59 23:59 Intake Total 4513 3816 2720 462 Output Total 1200 Balance 3313 3816 2720 462 Meds/Results Medications: Active Medications Generic Name Dose Route Start Last Admin Trade Name Freq PRN Reason Stop Dose Admin Acetaminophen 650 mg 12/12/24 19:20 12/15/24 12:18 Acetaminophen 325 Mg Tablet PO 650 mg Q4H PRN Administration Mild Pain (1-3) or Fever Enoxaparin Sodium 40 mg 12/12/24 21:25 12/16/24 09:22 Enoxaparin 40 Mg/0.4 Ml Syringe SUB-Q 40 mg Q12HR NIURKA Administration Guaifenesin 1,200 mg 12/13/24 15:00 12/16/24 09:25 Guaifenesin 12 Hr 600 Mg Tabcr PO Not Given Q12HR NIURKA Levofloxacin 750 mg 12/13/24 10:20 12/16/24 09:22 Levofloxacin 750 Mg Tablet PO 12/17/24 09:01 750 mg DAILY NIURKA Administration Lisinopril 10 mg 12/13/24 09:00 12/16/24 09:21 Lisinopril 10 Mg Tablet PO 10 mg DAILY NIURKA Administration Ondansetron HCl 4 mg 12/12/24 19:20 Ondansetron Inj 4 Mg/2 Ml Vial IV PUSH Q4H PRN Nausea Sodium Chloride 1 spray 12/13/24 06:03 Saline 0.65% Kunal Soln 44 Ml Btl NASAL Q6HR PRN Congestion Sodium Chloride 3 spray 12/14/24 09:00 12/16/24 09:21 Saline 0.65% Kunal Soln 44 Ml Btl NASAL 3 spray TID NIURKA Administration Radiology Results: ITS Impressions Chest X-Ray 12/12/24 16:19 IMPRESSION: No acute cardiopulmonary process. Chest CTA 12/12/24 18:46 IMPRESSION: Limited examination. No central embolus. No definite segmental embolus noting that evaluation is somewhat limited. Nondiagnostic imaging of the subsegmental pulmonary arteries. Upper lobe opacities may represent edema or infection. Sinuses CT 12/14/24 08:02 IMPRESSION: 1. Moderate pansinus disease. Labs Labs: Laboratory Results - last 24 hr 12/14/24 12/16/24 15:45 05:52 WBC 8.1 RBC 4.99 Hgb 13.2 Hct 43.3 MCV 86.8 MCH 26.5 MCHC 30.5 L RDW 15.5 H Plt Count 267 MPV 9.1 Immature Gran % (Auto) 0.4 Neut % (Auto) 47.7 Lymph % (Auto) 34.2 Gilliam % (Auto) 8.7 H Eos % (Auto) 8.4 H Baso % (Auto) 0.6 Lymph # (Auto) 2.76 Gilliam # (Auto) 0.7 H Eos # (Auto) 0.7 H Baso # (Auto) 0.1 Abs Immat Gran (auto) 0.03 Absolute Neuts (auto) 3.9 Absolute Nucleated RBC 0.000 Nucleated RBC % 0.0 Sodium 140 Potassium 3.7 Chloride 105 Carbon Dioxide 30 Anion Gap 5 BUN 16 Creatinine 0.66 L Estim Creat Clear Calc Not Reportable Estimated GFR > 60 Glucose 96 Calcium 8.3 L Magnesium 1.9 Total Bilirubin 0.3 AST 24 ALT 16 Alkaline Phosphatase 71 Total Protein 6.4 Albumin 3.3 L Chlamy pneumoniae PCR Not detected Adenovirus (PCR) Not detected B. pertussis DNA (PCR) Not detected B.parapertussis DNA PCR Not detected Coronavirus OC43 (PCR) Not detected Coronavirus HKU1 (PCR) Not detected Coronavirus 229E (PCR) Not detected Coronavirus NL63 (PCR) Not detected Human Metapneumovir PCR Not detected Influenza A (H1) PCR Not detected Influ A (H1/09) PCR Not detected Influenza A (H3) PCR Not detected Influenza Type A (PCR) Not detected Influenza Type B (PCR) Not detected M. pneumoniae (PCR) Not detected Parainfluenza 1 (PCR) Not detected Parainfluenza 2 (PCR) Not detected Parainfluenza 3 (PCR) Not detected Parainfluenza 4 (PCR) Not detected RSV (PCR) Not detected Entero/Rhino (PCR) Not detected SARS-CoV-2 (PCR) Not detected
[2024-12-16 09:35] VITALS: PULSE 125; O2SAT 90
[2024-12-16 09:45] VITALS: PULSE 99; O2SAT 93
--- NOTE | 2024-12-16 10:23 | HOMEO2EVAL ---
Evaluation was performed at [facility] Home Oxygen Evaluation RC: Home Oxygen (O2) Evaluation Start: 12/16/24 09:19 Freq: ONCE Status: Active Protocol: RPE Activity Type Activity Date Activity User E-sign Co-sign Detail Recorded Client Recorded Date Recorded By Document 12/16/24 09:30 [email or web address] [email or web address] 12/16/24 10:20 HUGO Document 12/16/24 09:35 [email or web address] [email or web address] 12/16/24 10:20 HUGO Document 12/16/24 09:45 [email or web address] [email or web address] 12/16/24 10:20 HUGO 12/16/24 12/16/24 12/16/24 09:30 09:35 09:45 Home O2 Evaluation [Oxygen] -Test Phase Resting Exercise Resting -Oxygen Delivery Room Air Room Air Room Air [Pulse Oximetry] -Pulse Oximetry (90-100 %) 94 90 93 [Pulse Rate] -Pulse Rate (60-100 beats/min) 100 125 H 99 [Evaluation] -Activity Tolerance Excellent [Exercise] -Ambulation Distance (feet) 300 -Ambulation Distance (meters) 91.43 [Charges] -Evaluation Charges O2 Evaluation by Pulmonary
--- NOTE | 2024-12-16 10:24 | PCRCNOTE ---
Home O2 eval done, patient needs 2 liters nocturnal only. Will arrange with [facility].
--- NOTE | 2024-12-16 12:04 | P.DS_ITS ---
DS: Admitting Diagnosis Discharge Date 12/16/24 Admitting Diagnosis Shortness of breath DS: Discharge Diagnosis Discharge Diagnosis (1) Nasal septal deviation: Code(s): J34.2 - Deviated nasal septum Status: Acute (2) Acute hypoxemic respiratory failure: Code(s): J96.01 - Acute respiratory failure with hypoxia Status: Acute (3) Community acquired pneumonia: Qualifiers: Laterality: unspecified laterality Qualified Code(s): J18.9 - Pneumonia, unspecified organism Code(s): J18.9 - Pneumonia, unspecified organism Status: Acute DS: Summary Hospital Course Hospital Course: 64-year-old female with morbid obesity, hypertension, chronic hypercapnia, deviated septum with nasal polyps, and recent pneumonia (hospitalized in October) presented to the ER with 2-3 days of shortness of breath and wheezing. She reports initial improvement after her last hospitalization but has had persistent intermittent wheezing and increased postnasal drip. She was prescribed Augmentin by her PCP, but developed a generalized, pruritic, urticarial rash and mild shortness of breath after a few days; she discontinued the antibiotic, and the rash resolved. No history of smoking, COPD, or asthma; no prior pulmonary function testing. Allergy testing was negative for cats and likely mold. She denies fever, chills, or lower extremity edema; weight stable at 260 lbs. In the ER, CT showed possible bilateral upper lobe pneumonia, no PE. Labs: mild leukocytosis (WBC 13), significant tachycardia, improved after IV fluids. She is scheduled to follow up with ENT for her nasal issues and is not interested in sleep apnea evaluation. Patient was managed for pneumonia, discharged on 5 more days of Levaquin. Pulmonology was consulted for possible OHS, however he ruled that out, overnight oximetry showed patient needing 2 liters for sleep, will go home on oxygen per home oxygen eval. Was initially on oxygen which was titrated down to room air, however undergoing home oxygen eval. ENT was consulted for noisy breathing and evaluation showed deviated nasal septum. CT facial showed moderate paranasal sinusitis. Patient will continue follow up with ENT as scheduled. F/u with PCP in 3-5 days F/u with Pulm and ENT as instructed Time Spent with Patient Time attestation: Total time spent providing and/or coordinating discharge services: DS: Data Data Completed and Pending Labs on day of discharge: Labs from last 24 hours 12/16/24 12/14/24 05:52 15:45 WBC 8.1 RBC 4.99 Hgb 13.2 Hct 43.3 MCV 86.8 MCH 26.5 MCHC 30.5 L RDW 15.5 H Plt Count 267 MPV 9.1 Immature Gran % (Auto) 0.4 Neut % (Auto) 47.7 Lymph % (Auto) 34.2 [place] % (Auto) 8.7 H Eos % (Auto) 8.4 H Baso % (Auto) 0.6 Lymph # (Auto) 2.76 [place] # (Auto) 0.7 H Eos # (Auto) 0.7 H Baso # (Auto) 0.1 Abs Immat Gran (auto) 0.03 Absolute Neuts (auto) 3.9 Absolute Nucleated RBC 0.000 Nucleated RBC % 0.0 Sodium 140 Potassium 3.7 Chloride 105 Carbon Dioxide 30 Anion Gap 5 BUN 16 Creatinine 0.66 L Estim Creat Clear Calc Not Reportable Estimated GFR > 60 Glucose 96 Calcium 8.3 L Magnesium 1.9 Total Bilirubin 0.3 AST 24 ALT 16 Alkaline Phosphatase 71 Total Protein 6.4 Albumin 3.3 L Chlamy pneumoniae PCR Not detected Adenovirus (PCR) Not detected B. pertussis DNA (PCR) Not detected B.parapertussis DNA PCR Not detected Coronavirus OC43 (PCR) Not detected Coronavirus HKU1 (PCR) Not detected Coronavirus 229E (PCR) Not detected Coronavirus NL63 (PCR) Not detected Human Metapneumovir PCR Not detected Influenza A (H1) PCR Not detected Influ A (H1/09) PCR Not detected Influenza A (H3) PCR Not detected Influenza Type A (PCR) Not detected Influenza Type B (PCR) Not detected M. pneumoniae (PCR) Not detected Parainfluenza 1 (PCR) Not detected Parainfluenza 2 (PCR) Not detected Parainfluenza 3 (PCR) Not detected Parainfluenza 4 (PCR) Not detected RSV (PCR) Not detected Entero/Rhino (PCR) Not detected SARS-CoV-2 (PCR) Not detected Preliminary micro results at discharge 12/12/24 18:10 Blood Culture - Preliminary Blood 12/12/24 16:07 Blood Culture - Preliminary Blood Discharge Plan Discharge Attending physician on discharge: Shaunna Funez Consulting providers: Flavia Warren; Shaunna Funez; Chris Muhammad Discharging Clinician: Shaunna Funez Anticipated Discharge Date/Time: 12/16/24 11:50 Patient Disposition: Home Activity: as tolerated Diet: as tolerated and heart healthy Discharge Instructions: Follow up with Dr Muhammad for Sleep study and PFTs Patient Instructions: Antibiotic Form, Pneumonia (DC) Patient Language: Polish Stand Alone Forms: General Discharge Information Follow-up/Referrals: Flavia Wraren MD [Physician] - (F/u with ENT as instructed ) Bhargavi Gonzales MD [Primary Care Provider] - (F/u with PCP in 3-5 days ) Chris Muhammad MD [Physician] - (F/u with Pulmonology as instructed ) Discharge Medications: New levofloxacin 750 mg tablet 750 mg PO DAILY 5 Days Qty: 5 0RF Continued lisinopril 20 mg tablet 10 mg PO DAILY Saline Mist 0.65 % Aerosol,[place] 1 spray intranasal Q6HR PRN (Reason: Congestion) Qty: 45 0RF Date of admission: 12/12/24 19:20 Primary Care Provider: Bhargavi Gonzales Admitting Provider: Pauline Matta Attending physician on admission: Pauline Matta Condition: Stable
== END 2024-12-16 13:15 | disposition home or self-care (01) | DRG 193 ==
LOC: ANHED 20:02 → ANHIMU 21:11 → ANH3MEDSUR 12-13 14:03
PROVIDERS: Emergency Medicine; General Practice; Internal Medicine Pulmonary Disease; Admitting Provider Internal Medicine; Emergency Provider Student in an Organized Health Care Education/Training Program; PCP Family Medicine; Visit Provider Internal Medicine
DX: J18.9 Pneumonia, unspecified organism (principal); J96.01 Acute respiratory failure with hypoxia; Z68.43 Body mass index [BMI] 50.0-59.9, adult; I10 Essential (primary) hypertension; D75.1 Secondary polycythemia; J33.8 Other polyp of sinus; J34.2 Deviated nasal septum; E86.0 Dehydration; E66.01 Morbid (severe) obesity due to excess calories; Z20.822 Contact with and (suspected) exposure to COVID-19
CPT/HCPCS: 36415; 36600; 70486; 71046; 71275; 80053; 82375; 82565; 82784; 82805; 83050; 83605; 83735; 83880; 84439; 84443; 85018; 85025; 85027; 87040; 87449; 87637; 87641; 87899; 93005; 94618; 94640; 94762; 96365; 96366; 96367; 96375; 99285; A9270; C8929; J0692; J1650; J3373; J3475; J7030; J7512; Q9957; Q9967

== ENCOUNTER 2025-01-21 13:51 | Outpatient (CLI) | payer MEDICARE, SELFPAY ==
[2025-01-26 20:07] LABS: Pneumo Ab Type 17 (17F)* 0.3 ug/mL (>1.3); Pneumo Ab Type 2* 2.8 ug/mL (>1.3); Pneumo Ab Type 20* 0.3 ug/mL (>1.3); Pneumo Ab Type 22 (22F)* 0.2 ug/mL (>1.3); Pneumo Ab Type 34 (10A)* 0.4 ug/mL (>1.3); Pneumo Ab Type 43 (11A)* <0.1 ug/mL (>1.3); Pneumo Ab Type 5* 0.3 ug/mL (>1.3); Pneumo Ab Type 54 (15B)* 0.4 ug/mL (>1.3); Pneumo Ab Type 70 (33F)* 0.5 ug/mL (>1.3)
== END 2025-01-21 13:52 | disposition home or self-care (01) ==
LOC: ANHGOSHLAB 13:52
PROVIDERS: PCP Family Medicine; Visit Provider Otolaryngology Otolaryngology/Facial Plastic Surgery
DX: J32.9 Chronic sinusitis, unspecified (principal)
CPT/HCPCS: 86581

== ENCOUNTER 2025-02-04 11:18 | Inpatient (IN) | payer MEDICARE, SELFPAY ==
[2025-02-04] VITALS (39 sets, daily range): BP systolic 123–152; BP diastolic 75–93; PULSE 102–125; RESP 18–34; TEMP 36.2–36.3; O2SAT 90–99; BMI 51.1
--- NOTE | ~2025-02-04 | CT_ITS ---
EXAMINATION: CT diagnostic chest wo nicolasa, 02/05/2025 12:50 CDT HISTORY: pneumonia COMPARISON: No comparisons available. TECHNIQUE: CT scan of the chest was performed without IV contrast. One or more of the following dose reduction techniques were used: automated exposure control, adjustment of the mA and/or kV according to patient size, use of iterative reconstruction technique. FINDINGS: No significant coronary calcification is present ([id number]) LUNGS: No tracheomalacia. No bronchiectasis. Minimal emphysematous changes. Minimal pulmonary fibrotic changes. There are bilateral groundglass attenuation infiltrates with mild associated bronchial wall thickening most marked involving the upper lobes. Elevation noted of the right hemidiaphragm. HEART AND PERICARDIUM: Within normal limits. AORTA: Normal caliber aorta. ADENOPATHY/MEDIASTINUM: None. LIMITED VIEWS OF THE ABDOMEN: Cholelithiasis. OSSEOUS STRUCTURES: No acute osseous abnormality.No suspicious lesions. OVERLYING SOFT TISSUES: Unremarkable. THYROID: The thyroid is unremarkable. IMPRESSION: Mild bilateral bronchopneumonia Reviewed, dictated and finalized at location P.
--- NOTE | ~2025-02-04 | XR_ITS ---
Examination: XR chest 2V Clinical History: SOB Comparison: 12/12/2024 Technique: PA and Lateral Findings: Cardiomediastinal silhouette normal size and configuration. Persistent apparent left basilar. Lungs otherwise clear No acute bony abnormality. IMPRESSION: 1. Apparent left basilar opacity as before, probably soft tissue artifact but atelectasis and/or airspace disease not excluded. Reviewed, dictated and finalized at location R.
--- NOTE | 2025-02-04 11:33 | ECG_ITS ---
Test Date: 2025-02-04 11:38:13 Measurements Intervals [place] Rate: 121 P: 33 DE: 156 QRS: 24 QRSD: 78 T: 59 QT: 297 QTc: 422 Interpretive Statements SINUS TACHYCARDIA NONSPECIFIC ST & T-WAVE ABNORMALITY ABNORMAL RHYTHM ECG Compared to ECG 12/12/2024 15:22:49 T-wave abnormality now present Electronically Signed On 02-04-2025 20:07:27 CDT by Liliam Pillai M.D.
--- NOTE | 2025-02-04 11:42 | PC.NURSE ---
Vascular access contacted to look for vascular access
[2025-02-04 12:12] LABS: Hematocrit 48.2 % (37.0-47.0); Hemoglobin 15.1 g/dL (12.0-15.0); Immature Granulocyte Percent A 0.4 % (0-0.5); Lymphocytes Absolute Auto 2.12 K/mm3 (0.9-3.2); Mean Corpuscular HGB Conc 31.3 g/dl (32-36); Mean Corpuscular Hemoglobin 26.9 pg (26-34); Mean Corpuscular Volume 85.8 fl (80-100); Nucleated Red Blood Cells Absolute Auto 0.000 K/mm3 (0.0-0.012); Nucleated Red Blood Cells Perc 0.0 % (0.0-0.2); Platelet Count Result 354 k/mm3 (150-375); Red Blood Count 5.62 M/mm3 (4.2-5.4); White Blood Count 12.4 K/mm3 (4.5-10.0)
[2025-02-04 12:31] LABS: Alanine Aminotransferase 20 U/L (6-35); Albumin Level 4.1 g/dL (3.5-5.1); Alkaline Phosphatase 116 U/L (38-126); Anion Gap 8 mmol/L (4-12); Aspartate Amino Transferase 33 U/L (14-36); Bilirubin,Total 0.6 mg/dL (0.2-1.3); Blood Urea Nitrogen 14 mg/dL (7-17); Calcium 8.8 mg/dL (8.4-10.2); Carbon Dioxide 31 mmol/L (22-30); Chloride 95 mmol/L (98-107); Estimated Glomerular Filt Rate > 60; Glucose 139 mg/dL (65-110); Potassium 4.8 mmol/L (3.4-5.0); Sodium 134 mmol/L (137-145); Total Protein 8.2 g/dL (6.3-8.2)
[2025-02-04] MEDS: IPRATROPIUM BR 0.02% INH SOLN 0.5 MG/2.5 ML VIAL 1 MG INHALATION (12:43)
--- NOTE | 2025-02-04 12:49 | ED.SOB ---
HPI - SOB/Dyspnea General Chief Complaint: Shortness of Breath/Dyspnea Stated Complaint: SOB Time Seen by Provider: 02/04/25 12:02 History of Present Illness HPI Narrative: Patient is a 64-year-old female who presents ER with shortness of breath. Worsening over last 2-3 days. She is now oxygen dependent whereas before she would only wear it as needed at nighttime. She reports she was called by her ENT who is dealing with her deviated septum and was told that she had bacteremia with Klebsiella. She had been on Bactrim recently. It was prescribed on 01/21/2025 and she took it for 10 days. Patient has persistent cough that has not improved since being in the hospital in October with pneumonia. Related Data Home Medications ?Medication ?Instructions ?Recorded ?Confirmed ?Last Taken ?Type lisinopril 20 mg tablet 10 mg PO HS 10/26/24 02/04/25 02/04/25 01:00 History Allergies Allergy/AdvReac Type Severity Reaction Status Date / Time amoxicillin (From Augmentin) Allergy Intermediate Hives Verified 02/04/25 16:47 clavulanic acid (From Allergy Intermediate Hives Verified 02/04/25 16:47 Augmentin) Penicillins Allergy Intermediate Itching Verified 02/04/25 16:47 Review of Systems Review of Systems: All systems reviewed & are unremarkable except as noted in HPI and below Constitutional: Constitutional: Reports no additional constitutional complaints ENT: Reports system reviewed and no additional complaints, except as documented Cardiovascular: Cardiovascular: Reports no additional cardiovascular complaints Respiratory: Respiratory: Reports no additional respiratory complaints Neurologic: Reports system reviewed and no additional complaints, except as documented [facility] Past Medical History Medical History Nasal mucosa dry Morbid obesity with BMI of 50.0-59.9, adult Hypertension Maxillary sinus polyp Surgical History Surgical History H/O: hysterectomy History of appendectomy Family History Family History Mother Diabetes mellitus Heart attack Hypertension Sibling Acute myocardial infarction Father Prostate carcinoma Grandparent Congestive heart failure Hypertension Social History Social History (Updated 01/21/25 @ 11:31 by Norma Jain) Social History: She is 1 of 10 children. Her and her younger brother live together. She is single and never been and does not have any children. 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 She denies any history of alcohol, tobacco or illicit substance use. Code status: Full code Surrogate decision maker: Dora Peres (sister) Caffeine-green tea, occasional soda Smoking status: Never smoker Alcohol intake: never Substance use: never Substance use type: does not use Do You Feel Safe in your Home?: Yes Lack of Transportation: No Lack of Food: Never True Current Housing: I Have Housing Concerned About Future Housing: No Difficulty Paying Gas/Electric Bills: No Difficulty Paying for Meds: No Currently Unemployed: No Education: Associate Degree Difficulty w/ Childcare or Family Care: No Spiritual care concerns: No Exam Narrative: GENERAL: Well-appearing, morbidly obese, and in no acute distress. HEAD: Normocephalic, atraumatic. EYES: PERRL and EOMI. ENT: Mucous membranes moist. CHEST: Diffuse wheezing and rales with expiration. No respiratory distress. HEART: Tachycardic regular. Normal peripheral pulses. ABDOMEN: Soft, nontender, nondistended. EXTREMITIES: Normal range of motion. No edema. SKIN: Warm, dry, no rash. NEURO: Alert and oriented x3. PSYCH: Normal mood and affect. Course Course Emergency Course: Patient with hypoxia, elevated white blood cell count, x-ray indicating pneumonia. Admit to hospitalist service. Vital Signs Vital signs: Vital Signs Pulse Rate 123 H 02/04/25 11:28 Respiratory Rate 32 H 02/04/25 11:28 Pulse Oximetry 97 02/04/25 11:28 Temperature 97.4 F L 02/04/25 17:49 Pulse Rate 110 H 02/04/25 20:22 Respiratory Rate 18 02/04/25 20:22 Blood Pressure 142/77 H 02/04/25 17:49 Pulse Oximetry 95 02/04/25 20:17 Oxygen Delivery Nasal Cannula 02/04/25 11:43 Oxygen Flow Rate 4 02/04/25 20:17 MDM - SOB/Dyspnea Lab Data 02/04/25 12:05 02/04/25 16:49 Labs: Lab Results 02/04/25 02/04/25 Range/Units 12:05 15:43 WBC 12.4 H (4.5-10.0) K/mm3 RBC 5.62 H (4.2-5.4) M/mm3 Hgb 15.1 H (12.0-15.0) g/dL Hct 48.2 H (37.0-47.0) % MCV 85.8 (80-100) fl MCH 26.9 (26-34) pg MCHC 31.3 L (32-36) g/dl RDW 14.6 H (11.5-14.5) % Plt Count 354 (150-375) k/mm3 MPV 8.8 (7.4-10.4) fl Immature Gran % (Auto) 0.4 (0-0.5) % Neut % (Auto) 75.1 H (45.5-73.1) % Lymph % (Auto) 17.2 L (18.3-44.2) % [place] % (Auto) 4.7 (2.6-8.5) % Eos % (Auto) 2.2 (0-4.4) % Baso % (Auto) 0.4 (0.2-1.2) % Lymph # (Auto) 2.12 (0.9-3.2) K/mm3 [place] # (Auto) 0.6 (0.1-0.6) K/mm3 Eos # (Auto) 0.3 (0-0.3) K/mm3 Baso # (Auto) 0.1 (0.0-0.1) K/mm3 Abs Immat Gran (auto) 0.05 H (0.00-0.031) K/mm3 Absolute Neuts (auto) 9.3 H (1.3-6.7) K/mm3 Absolute Nucleated RBC 0.000 (0.0-0.012) K/mm3 Nucleated RBC % 0.0 (0.0-0.2) % Sodium 134 L (137-145) mmol/L Potassium 4.8 (3.4-5.0) mmol/L Chloride 95 L (98-107) mmol/L Carbon Dioxide 31 H (22-30) mmol/L Anion Gap 8 (4-12) mmol/L BUN 14 (7-17) mg/dL Creatinine 0.60 L (0.7-1.0) mg/dL Estim Creat Clear Calc Not Reportable Estimated GFR > 60 (59 - ) Glucose 139 H (65-110) mg/dL Lactic Acid 1.5 (0.7-2.0) mmol/L Calcium 8.8 (8.4-10.2) mg/dL Total Bilirubin 0.6 (0.2-1.3) mg/dL AST 33 (14-36) U/L ALT 20 (6-35) U/L Alkaline Phosphatase 116 (38-126) U/L Total Protein 8.2 (6.3-8.2) g/dL Albumin 4.1 (3.5-5.1) g/dL Imaging Data Radiologist's impression: ITS Impressions Chest X-Ray 02/04/25 14:20 IMPRESSION: 1. Apparent left basilar opacity as before, probably soft tissue artifact but atelectasis and/or airspace disease not excluded. ECG Data EKG #1: ECG completion date: 02/04/25 ECG completion time: 11:38 EKG Interpretation: tachycardia (121), sinus rhythm, non-specific ST changes, normal QRS and normal QT Discharge Plan Discharge Clinical Impression: Hypoxia Pneumonia Qualifiers: Pneumonia type: due to unspecified organism Laterality: bilateral Lung location: upper lobe of lung Qualified Code(s): J18.9 - Pneumonia, unspecified organism Patient Disposition: Still a Patient Condition: Stable
[2025-02-04] MEDS: cefTRIAXone 1 GM in SODIUM CHLORIDE 0.9% IV 50 ML 100 ML IVPB (15:45)
--- NOTE | 2025-02-04 16:28 | P.HP_ITS ---
H&P: HPI History of Present Illness Date/Time: 02/04/25 16:28 Chief Complaint: Shortness of breath Narrative: 64-year-old female on on 2 L of oxygen at night for deviated septum, hypertension presents the hospital with shortness of breath. Patient states that she was seeing ENT for her deviated septum and was told that she had a bacteremia with Klebsiella. Patient states that she was diagnosed with pneumonia back in October and has had a persistent cough since then. Patient states that she has been sick for the last several months. She states that it started with a fall where she broke her nose. She has been seeing ENT and has recommended surgery for deviated septum. She states that for the last several nights she has been sleeping sitting up in his been unable to lay flat. She states that she has no history of lung disease, she has never smoked, asthma or COPD. Patient denies fevers chills nausea or vomiting. Lab work in the ED shows leukocytosis at 12.4, hemoglobin of 15.1, sodium of 134, chloride of 95, carbon dioxide 31, creatinine of 0.60, glucose of 139, x- ray shows left basilar opacity possible pneumonia. EKG shows sinus tachycardia 121. Patient was given azithromycin and Rocephin in the emergency room. Review of Systems Review of Systems: 12 systems were reviewed and are negativ e except for as per HPI. [facility] Past Medical History Medical History Nasal mucosa dry Morbid obesity with BMI of 50.0-59.9, adult Hypertension Maxillary sinus polyp Surgical History Surgical History H/O: hysterectomy History of appendectomy Family History Family History Mother Diabetes mellitus Heart attack Hypertension Sibling Acute myocardial infarction Father Prostate carcinoma Grandparent Congestive heart failure Hypertension Social History Social History (Updated 01/21/25 @ 11:31 by Norma Jain) Social History: She is 1 of 10 children. Her and her younger brother live together. She is single and never been and does not have any children. 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 She denies any history of alcohol, tobacco or illicit substance use. Code status: Full code Surrogate decision maker: Dora Peres (sister) Caffeine-green tea, occasional soda Smoking status: Never smoker Alcohol intake: never Substance use: never Substance use type: does not use Do You Feel Safe in your Home?: Yes Lack of Transportation: No Lack of Food: Never True Current Housing: I Have Housing Concerned About Future Housing: No Difficulty Paying Gas/Electric Bills: No Difficulty Paying for Meds: No Currently Unemployed: No Education: Associate Degree Difficulty w/ Childcare or Family Care: No Spiritual care concerns: No Meds Home Medications and Allergies Home Medications ?Medication ?Instructions ?Recorded ?Confirmed ?Type lisinopril 20 mg tablet 10 mg PO HS 10/26/24 5 History Allergies Allergy/AdvReac Type Severity Reaction Status Date / Time amoxicillin (From Augmentin) Allergy Intermediate Hives Verified 02/04/25 16:47 clavulanic acid (From Allergy Intermediate Hives Verified 02/04/25 16:47 Augmentin) Penicillins Allergy Intermediate Itching Verified 02/04/25 16:47 Vital Signs Vital Signs - 24 hr 02/04/25 11:28 02/04/25 11:29 02/04/25 11:29 Pulse Rate 123 H 125 H 124 H Respiratory Rate 32 H 30 H 18 Blood Pressure 130/81 151/88 H Pulse Oximetry 97 97 97 Oxygen Delivery Nasal Cannula Oxygen Flow Rate 4 02/04/25 11:30 02/04/25 11:31 02/04/25 11:43 Pulse Rate 122 H 124 H Respiratory Rate 20 34 H Blood Pressure 130/81 Pulse Oximetry 97 97 97 Oxygen Delivery Nasal Cannula Oxygen Flow Rate 4 02/04/25 11:45 02/04/25 11:46 02/04/25 12:00 Pulse Rate 123 H 121 H 118 H Respiratory Rate 25 H 23 H 28 H Blood Pressure 133/93 H 134/85 Pulse Oximetry 97 96 94 Oxygen Delivery Oxygen Flow Rate 02/04/25 12:01 02/04/25 12:15 02/04/25 12:16 Pulse Rate 119 H 118 H 122 H Respiratory Rate 22 H Blood Pressure 127/85 Pulse Oximetry 95 94 95 Oxygen Delivery Oxygen Flow Rate 02/04/25 12:30 02/04/25 12:31 02/04/25 12:45 Pulse Rate 117 H 117 H 116 H Respiratory Rate 26 H Blood Pressure 123/84 137/75 Pulse Oximetry 94 95 92 Oxygen Delivery Oxygen Flow Rate 02/04/25 12:46 02/04/25 12:46 02/04/25 13:00 Pulse Rate 115 H 113 H Respiratory Rate 24 H Blood Pressure 126/78 Pulse Oximetry 94 98 Oxygen Delivery Oxygen Flow Rate 02/04/25 13:01 02/04/25 13:15 02/04/25 13:16 Pulse Rate 117 H 119 H Respiratory Rate Blood Pressure 144/83 H Pulse Oximetry 99 98 97 Oxygen Delivery Oxygen Flow Rate 02/04/25 13:30 02/04/25 13:31 02/04/25 13:45 Pulse Rate 116 H 112 H 117 H Respiratory Rate 22 H Blood Pressure 142/89 H 135/78 Pulse Oximetry 96 98 92 Oxygen Delivery Oxygen Flow Rate 02/04/25 13:46 02/04/25 13:47 02/04/25 14:00 Pulse Rate 119 H 118 H 115 H Respiratory Rate 34 H 22 H Blood Pressure 124/75 Pulse Oximetry 94 93 Oxygen Delivery Oxygen Flow Rate 02/04/25 14:01 02/04/25 14:22 02/04/25 14:30 Pulse Rate 117 H 116 H Respiratory Rate 26 H 29 H Blood Pressure Pulse Oximetry 97 90 91 Oxygen Delivery Oxygen Flow Rate 02/04/25 14:45 02/04/25 15:00 02/04/25 15:15 Pulse Rate Respiratory Rate Blood Pressure Pulse Oximetry 90 90 91 Oxygen Delivery Oxygen Flow Rate 02/04/25 15:33 02/04/25 15:45 02/04/25 16:00 Pulse Rate 115 H 116 H Respiratory Rate 21 H 29 H Blood Pressure Pulse Oximetry 92 94 93 Oxygen Delivery Oxygen Flow Rate Exam Narrative: General: well appearing, appears stated age. Obese no acute distress HEENT: normocephalic, atraumatic. Mucous membranes moist. EOMI, PERRLA, bilateral sclera anicteric, no conjunctival injection. Neck supple without JVD, lymphadenopathy, or bruit. Respiratory: Diminished bilateral expiatory wheezes Cardiovascular: Regular rate and rhythm, normal S1-S2 upon ascultation. No murmurs, rubs, or clicks. PMI is nondisplaced, capillary refill less than 3 second. Abdomen: Soft, round, no pulsatile masses, nondistended and nontender. No rebound, no guarding. No CVA tenderness, no hepatosplenomegaly. Bowel sounds present to all four quadrants. No high pitch or tinkling sounds, resonant to percussion. Extremities: No cyanosis, clubbing, or edema present. Pulses are palpable 2/2. Active ROM to all four extremities. Neuro: Alert and orientated x 4. PERRLA. Cranial nerves 2-12 intact without focal deficit. Skin: Warm, dry, and intact, without rash, erythema, or lesion. Psych: pleasant, cooperative, normal speech, normal affect, no hallucinations, no dysarthia H&P: Results Labs Labs: Short CBC 02/04/25 Range/Units 12:05 WBC 12.4 H (4.5-10.0) K/mm3 Hgb 15.1 H (12.0-15.0) g/dL Hct 48.2 H (37.0-47.0) % Plt Count 354 (150-375) k/mm3 BMP 02/04/25 12:05 Sodium 134 L Potassium 4.8 Chloride 95 L Carbon Dioxide 31 H BUN 14 Creatinine 0.60 L Glucose 139 H Calcium 8.8 Liver Function 02/04/25 Range/Units 12:05 Total Bilirubin 0.6 (0.2-1.3) mg/dL AST 33 (14-36) U/L ALT 20 (6-35) U/L Alkaline Phosphatase 116 (38-126) U/L Albumin 4.1 (3.5-5.1) g/dL Assessment and Plan Assessment and plan (1) Tachycardia: Code(s): R00.0 - Tachycardia, unspecified Status: Acute Assessment and Plan: Likely due to acute infection IVF Telemetry (2) Community acquired pneumonia: Qualifiers: Laterality: unspecified laterality Qualified Code(s): J18.9 - Pneumonia, unspecified organism Code(s): J18.9 - Pneumonia, unspecified organism Status: Acute Assessment and Plan: Pulmonary IV Rocephin and azithromycin Blood cultures pending Ha Guaifenesin (3) Acute hypoxemic respiratory failure: Code(s): J96.01 - Acute respiratory failure with hypoxia Status: Acute Assessment and Plan: Normally wears 2 L at night Wean oxygen as able to baseline (4) Hypertension: Qualifiers: Hypertension type: primary hypertension Qualified Code(s): I10 - Essential (primary) hypertension Code(s): I10 - Essential (primary) hypertension Status: Chronic Assessment and Plan: Continue home lisinopril Quality VTE Prophylaxis VTE prophylaxis: mechanical ordered and pharmacologic ordered
--- NOTE | 2025-02-04 16:58 | ADMGEN ---
This patient, Zenaida Heart, was admitted to [facility] S[facility] Room 314-01. Patient/family oriented to hospital policies and general routines including ID bracelet, bed and alarms, visiting hours, pain management, procedures, bathroom and other care routines, personal items, smoking policy, room service/diet, and visiting hours. Information on how to activate the Rapid Response Team has been discussed. Patient/Family are encouraged to report perceived risks to care and to ask questions if they do not understand what they are told or what they should do.
[2025-02-04 17:27] LABS: Anion Gap 10 mmol/L (4-12); Blood Urea Nitrogen 13 mg/dL (7-17); Calcium 8.8 mg/dL (8.4-10.2); Carbon Dioxide 29 mmol/L (22-30); Chloride 97 mmol/L (98-107); Estimated Glomerular Filt Rate > 60; Glucose 173 mg/dL (65-110); Potassium 4.5 mmol/L (3.4-5.0); Sodium 136 mmol/L (137-145)
[2025-02-04] MEDS: AZITHROMYCIN IV 500 MG in SODIUM CHLORIDE 0.9% IV 250 ML IVPB (18:19)
[2025-02-04] MEDS: SODIUM CHLORIDE 0.9% IV 1,000 ML 125 ML IV CONT (18:21)
[2025-02-04] MEDS: guaiFENesin 12 HR 600 MG TABCR 1200 MG PO (20:06)
[2025-02-04] MEDS: IPRATROPIUM 0.5 MG/ALBUTEROL SULFATE 2.5 MG AMPUL.NEB 3 ML INHALATION (20:11)
[2025-02-05] VITALS (14 sets, daily range): BP systolic 100–130; BP diastolic 51–73; PULSE 80–108; RESP 18–20; TEMP 36–36.6; O2SAT 90–98
[2025-02-05] MEDS: IPRATROPIUM 0.5 MG/ALBUTEROL SULFATE 2.5 MG AMPUL.NEB 3 ML INHALATION ×2 (01:56→07:57)
[2025-02-05 06:21] LABS: Hematocrit 44.1 % (37.0-47.0); Hemoglobin 13.4 g/dL (12.0-15.0); Immature Granulocyte Percent A 0.6 % (0-0.5); Lymphocytes Absolute Auto 1.30 K/mm3 (0.9-3.2); Mean Corpuscular HGB Conc 30.4 g/dl (32-36); Mean Corpuscular Hemoglobin 26.5 pg (26-34); Mean Corpuscular Volume 87.2 fl (80-100); Nucleated Red Blood Cells Absolute Auto 0.000 K/mm3 (0.0-0.012); Nucleated Red Blood Cells Perc 0.0 % (0.0-0.2); Platelet Count Result 326 k/mm3 (150-375); Red Blood Count 5.06 M/mm3 (4.2-5.4); White Blood Count 9.7 K/mm3 (4.5-10.0)
[2025-02-05 08:52] LABS: Alanine Aminotransferase 16 U/L (6-35); Albumin Level 3.5 g/dL (3.5-5.1); Alkaline Phosphatase 91 U/L (38-126); Anion Gap 3 mmol/L (4-12); Aspartate Amino Transferase 28 U/L (14-36); Bilirubin,Total 0.2 mg/dL (0.2-1.3); Blood Urea Nitrogen 15 mg/dL (7-17); CRP 4.7 mg/dL (<1.0); Calcium 8.7 mg/dL (8.4-10.2); Carbon Dioxide 32 mmol/L (22-30); Chloride 101 mmol/L (98-107); Estimated Glomerular Filt Rate > 60; Glucose 153 mg/dL (65-110); Potassium 4.8 mmol/L (3.4-5.0); Sodium 136 mmol/L (137-145); Total Protein 7.0 g/dL (6.3-8.2)
[2025-02-05 09:01] LABS: NT Pro B Type Natriuretic Pept 179 pg/mL (19.9-100)
[2025-02-05 09:06] LABS: Procalcitonin 0.1 ng/mL
[2025-02-05] MEDS: guaiFENesin 12 HR 600 MG TABCR 1200 MG PO ×2 (09:41→21:22)
[2025-02-05] MEDS: ENOXAPARIN 40 MG/0.4 ML SYRINGE SUB-Q (09:42)
--- NOTE | 2025-02-05 09:48 | PM.CNPUL ---
Assessment and Plan Assessment and plan (1) Community acquired pneumonia: Qualifiers: Laterality: unspecified laterality Qualified Code(s): J18.9 - Pneumonia, unspecified organism Code(s): J18.9 - Pneumonia, unspecified organism Status: Acute Assessment and Plan: patient presents with feeling cold and clammy, worsening dyspnea on exertion, little bit of cough with no change in her phlegm, no change in her sinuses, leukocytosis 12.4 and chest x-ray with a left base infiltrate with no change from 12/12/2024. Her CRP is 4.7, procalcitonin 0.1. Blood cultures are pending. The patient may or may not have a pneumonia. 02/05/2025: The patient tells me she is doing better. She feels 50% back to her baseline. She is tired with no shortness of breath at rest and her dyspnea on exertion when she walks to the bathroom is improved. Her phlegm production is the same and her postnasal drip is the same. She is afebrile. Her white blood cell count is 9.7, creatinine is 0.61, BNP is 179, CRP is 4.7, procalcitonin is 0.1. her weight today is 114.9 kg. Plan: Continue ceftriaxone and azithromycin, day 2 antibiotics. Continue guaifenesin 1200 mg p.o. b.i.d.. I will send a MRSA nasal swab, respiratory pathogen panel, urine Legionella antigen, urine pneumococcal antigen and serum IgM for mycoplasma. I will obtain a CT scan of the chest to assess for infiltrates. Of note, patient has extensive sinusitis and will require surgery per ENT. Currently she says her sinuses are at her baseline. in the past she has declined Flonase, Astelin, ipratropium and does not wish for any nasal medicines at this time. ENT had ordered streptococcal pneumonia IgG levels for 23 sero types and all but 2 are low. As an initial workup, I will send immunoglobulin G, M, A and E levels. I will send immunoglobulin G sub classes. with ventrally need full immunodeficiency workup by Allergy and immunology. Of note, patient had expiratory wheezes in the emergency room and is currently being treated with DuoNebs and levalbuterol. Her heart rate was 115 today. Patient says she cannot tolerate inhalers as they aggravate her coughing. I will discontinue beta agonist and place her on nebulized ipratropium, and nebulized budesonide 500 mcg b.i.d.. (2) Acute hypoxemic respiratory failure: Code(s): J96.01 - Acute respiratory failure with hypoxia Status: Acute Assessment and Plan: Patient presented and required 4 L nasal cannula oxygen on 02/04/2025. 02/05/25: When I enter the room she was on 4 L nasal cannula saturations 96%. I decreased her to room air and her saturations were 92%. Plan: Goal saturation 90-94%, adjust oxygen accordingly (3) Daytime hypersomnia: Code(s): G47.10 - Hypersomnia, unspecified Status: Acute Assessment and Plan: Patient is morbidly obese with a BMI of 53.0, she snores, no sleeping partner but has never been told she stops breathing in her sleep, she takes 1 nap a day. ABG on 3 L 7.40/46/69. TSH 4.92 on 10/22/2023. patient has nocturnal hypoxia on room air which was corrected with 2 L nasal cannula. 02/05/25: patient tells me that she has reluctantly been wearing 2 L oxygen at night. Plan: Continue 2 L nasal cannula at night. Patient was called about her outpatient split night sleep study but declined to schedule this and said she would call back in the future. she will need outpatient sleep study. History of Present Illness History of Present Illness Consult date: 02/05/25 Chief complaint: pneumonia, hypoxia Narrative: 02/05/2025: This is a new pulmonary consult for hypoxemic respiratory failure and pneumonia. I have seen this patient in consultation from her last admission 12/10/2024 through 12/16/2024 and in the office on 01/06/2025. 64-year-old with a history of hypertension, nasal polyps and obesity. Patient has a history of a fall with nose trauma in 2023 and since then has had nasal congestion and drainage.? Patient is a never smoker, no exposures secondhand smoke.? 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 occasionally she reacts when she is exposed to her cats at home with coughing and wheezing if the cats jump near her face. In 09/2024 she went [facility] with sinus congestion and drainage to the throat and was given doxycycline. Her nasal drainage got worse. 10/26/2024 through 10/29/2024. Admitted to [facility] with SOB, TOBIN, cough, wheezing, and fever. Treated with antibiotics and discharged on prednisone, Augmentin and azithromycin. She felt better when she was discharged and did well for the next 2 weeks. Approximately 11/12/24 she was having work done in her house and there was mold in the mendieta and the construction crew was painting. She developed a slight cough with some chest tightness an upper wheezing. She went to her PCP on 12/03/2024 and was prescribed Augmentin which she started on 12/06/2024. On 12/08/2024 she notices her breathing was worse, her phlegm increased and she developed welts and skin rashes. She stopped the Augmentin. 12/10/2024 through 12/16/2024: Admitted to [facility]. On 12/10/24 her breathing was worse. She had TOBIN but no rest SOB. On 12/12, She presented to the ED with blood pressure of 189/113, heart rate 118, room air saturations 89% and with 2 L her saturations were 100%. She was treated with DuoNeb and magnesium and given 30 mL/kilos. Her white blood cell count was 13.1, eosinophils 5.1%=668/uL, creatinine was 0.61, her BNP was 174. MRSA swab negative. COVID influenza RSV RT PCR assay negative. She had a CTA of the chest that showed no PE with minimal bilateral upper lobe infiltrates. She was started on vancomycin and cefepime. On 12/13 she was changed to Levaquin and prednisone was started. Patient was seen by ENT and she has a right deviation of her septum with crusting and obstruction on the right, recommended saline spray 3 spray each nostril 3 times a day for 10 days.? Her breathing improved.? She remained with sinus congestion and drainage.? Home O2 assessment demonstrated no oxygen at rest or with activity.? Overnight oximetry on room air with hypoxemia.? Overnight oximetry on 2 L with adequate oxygenation.? She was not convinced the DuoNebs were helping her and she has had trouble with inhalers at home and I discontinued the DuoNebs. Patient told me that guaifenesin makes her stomach hurt. She improved and was discharged on 12/16 on Levaquin 750 mg x5 days, last dose to be 12/21/2024, saline nasal spray 3 sprays each nostril 3 times a day per ENT.? Of note the patient had 2 cats and she says that when she is close to the cats or when they jump near her face she gets shortness of breath and wheezing. She has been skin tested negative for cat allergy. ??I recommended removal of the cats from the house.? If she could not do this, to take them out of the bedroom at night and obtain a HEPA filter for the bedroom.? 01/06/25: Today she tells me that she finished her Levaquin when she was discharged from the hospital. Overall the patient says she is doing a little bit better. Her activity level remains at room to room but she seems to be getting a little bit stronger. Her major complaint today is cough with postnasal drip. The patient tells me that she coughs 0-5 times an hour and when she coughs the last 1 minute. The cough is always provoked by postnasal drip. One she coughs up and expectorates the cough resolves. The cough is worse when she lays back and has sinus drainage down the right side of her nose and throat. The cough is improved when she sits up. At times within the patient has mucus in her chest she will have wheezing. When she coughs the mucus up the wheezing resolves. She does not expel any mucus out her nose it always drains backwards. Patient denies choking on her food. Patient has never had any nose bleeds or hemoptysis. Two of her physicians, PCP and nutrition aide, have previously recommended Flonase nasal spray but she has declined this in the past. She has taken [id number] antihistamines but these make her jittery and dizzy. Regarding contributing factors she is still having house remodeling That was associated with mold in the house, painting in the house and dust in the house but they are scheduled to finish in 5 days. the patient has an indoor cat. She has remove the cat from the bedroom at night. She has not brought HEPA filter. She is scheduled to follow-up with ENT on 01/21/2025. Patient states that she has broken teeth for at least 3 years and that these need to be removed but she has failed to follow-up on this. Currently she is on no Medicinal inhalers. she takes saline nasal spray 3 sprays each nostril 2 to 3 times a day. Patient does have some daytime hypersomnia, a sister in the room says she naps during the day, she does not feel refreshed when she wakes up. She denies morning headaches. Her weight today is 255 lb. Her [place] score today is 2. She continues to wear 2 L nasal cannula at night and says that she thinks this may be helping her. Patient does not smoke and is not exposed to secondhand smoke. Patient does not exercise. Patient declines all vaccines. Plan was to treat her with Flonase, Astelin and ipratropium. Patient said she would try Flonase but not Astelin or ipratropium. She was to see a dentist to remove her right in teeth. She was to get a HEPA filter for her bedroom, avoid exposure to the cats, obtain PFTs, and a split night sleep study was ordered. Patient has not seen a dentist, she did not take the Flonase, she did get a HEPA filter for her room and has decreased exposure to her cats who are no longer in her bedroom. PFTs are scheduled she declined the split night sleep study and would call back for another appointment. Her patient saw ENT on 01/19/2025 who stated she is not using the Flonase as prescribed. CT scan of the sinuses showed moderate pansinusitis. She was prescribed Bactrim and recommended to have bilateral frontal sinus balloon dilation,bilateral , complete ethmoidectomy, bilateral maxillary antrostomy, bilateral inferior turbinate submucous resection , and septoplasty. This is not been scheduled. Currently over the last 2-4 days she has felt cold and clammy. She has had no rigors or diaphoresis. At baseline she has dyspnea on exertion room to room and this was worse. She has no rest shortness of breath. She had intermittent wheezes improved with albuterol. Her cough was a little more than usual with no change in her phlegm and no hemoptysis. Her sinuses are unchanged with her normal postnasal drip. 02/04/2025: Patient presented to the emergency room with a blood pressure 142/77, heart rate 123, 4 L nasal cannula saturation 95%. She had wheezing and rales. White blood cell count was 12.4 with eosinophils 2.2, creatinine 0.64. Chest x-ray showed left base infiltrate with no change from 12/12/2024. Patient was started on ceftriaxone, azithromycin, guaifenesin 1200 b.i.d. DuoNebs and levalbuterol. 02/05/2025: The patient tells me she is doing better. She feels 50% back to her baseline. She is tired with no shortness of breath at rest and her dyspnea on exertion when she walks to the bathroom is improved. Her phlegm production is the same and her postnasal drip is the same. She is afebrile. When I enter the room she was on 4 L nasal cannula saturations 96%. I decreased her to room air and her saturations were 92%. Her white blood cell count is 9.7, creatinine is 0.61, BNP is 179, CRP is 4.7, procalcitonin is 0.1. her weight today is 114.9 kg. DATA: 12/16/24: Patient had an overnight oximetry on 2 L with recording duration 6 hours and 29 minutes. Average saturation 94%. Low saturation 88%. Time with saturation less than or equal to 88% was 0 minutes. Oxygen desaturation index 1.5. 12/15/24: Patient had an overnight oximetry on room air with recording duration of 7 hours and 22 minutes. Average saturation 89%. Low saturation 81%. Time with saturation less than or equal to 88% was 153 minutes. Oxygen desaturation index 6.2. 12/15/24: Echo Summary 1. Definity contrast administered improved wall motion interpretation. 2. Left ventricular chamber dimension is normal. 3. Left ventricular systolic function is normal, estimated at 65-70. 4. There is mild concentric increased left ventricular wall thickness. 5. The left ventricular diastolic function is grade I diastolic dysfunction. 6. E/e' 11 is mildly elevated. 7. Dilated inferior vena cava with >50% collapse upon inspiration consistent with elevated right atrial pressure, 10 mmHg. Left Ventricle E/e' 11 is mildly elevated. Left ventricular chamber dimension is normal. Left ventricular systolic function is normal, estimated at 65-70. There is mild concentric increased left ventricular wall thickness. The left ventricular diastolic function is grade I diastolic dysfunction. Definity contrast administered improved wall motion interpretation. Right Ventricle Right ventricular chamber dimension is not well visualized. Left Atria Left atrial chamber dimension is normal. Right Atria Right atrial chamber dimension is normal. DATE: 12/12/2024 18:37 EXAMINATION: CTA chest PE protocol INDICATION: hypoxia, tachy, recent hospitalization COMPARISON: None. FINDINGS: Lung parenchyma and airways: Considerable motion artifact. Calcified right lower lobe granuloma. Subsegmental areas of peribronchovascular consolidation and groundglass in the bilateral upper lobes. Pleura: Unremarkable. Thoracic inlet, axillae and chest wall: Unremarkable. Thoracic aorta: No significant dilation. No dissection. Minimal arch calcification. Mediastinum: Dilated central pulmonary arteries. Calcified nodes. Heart and pericardium: Normal. Coronary artery calcifications: Absent. Upper abdomen: Cholelithiasis, without inflammatory change. Small hiatal hernia. Mild bilateral renal cortical thinning and scarring. Bones: No acute osseous finding. Pulmonary arteries: Study quality: Significant motion artifact, beam hardening, and quantum mottle limits this study. Nondiagnostic imaging of the subsegmental pulmonary arteries. No central or definite segmental pulmonary emboli detected. IMPRESSION: Limited examination. No central embolus. No definite segmental embolus noting that evaluation is somewhat limited. Nondiagnostic imaging of the subsegmental pulmonary arteries. Upper lobe opacities may represent edema or infection. [facility] Medical History (Updated 01/06/25 @ 12:12 by Chris Muhammad MD) Nasal mucosa dry Morbid obesity with BMI of 50.0-59.9, adult Hypertension Maxillary sinus polyp Review of Systems Constitutional: Constitutional: Reports no additional constitutional complaints Eyes: Eyes: Reports no additional eye complaints ENT: Reports system reviewed and no additional complaints, except as documented Cardiovascular: Cardiovascular: Reports no additional cardiovascular complaints Respiratory: Respiratory: Reports no additional respiratory complaints Gastrointestinal: Gastrointestinal: Reports no additional gastrointestinal complaints Musculoskeletal: Musculoskeletal: Reports no additional musculoskeletal complaints Neurologic: Reports system reviewed and no additional complaints, except as documented Psychiatric: Psychiatric: Reports no additional psychiatric complaints Endocrine: Endocrine: Reports no additional endocrine complaints Hematologic/Lymphatic: Hematologic/Lymphatic: Reports no additional hematologic/lymphatic complaints Allergic/Immunologic: Allergic/Immunologic: Reports no additional allergic/immunologic complaints [facility] Past Medical History Medical History Nasal mucosa dry Morbid obesity with BMI of 50.0-59.9, adult Hypertension Maxillary sinus polyp Surgical History Surgical History H/O: hysterectomy History of appendectomy Family History Family History Mother Diabetes mellitus Heart attack Hypertension Sibling Acute myocardial infarction Father Prostate carcinoma Grandparent Congestive heart failure Hypertension Social History Social History (Updated 01/21/25 @ 11:31 by Norma Jain) Social History: She is 1 of 10 children. Her and her younger brother live together. She is single and never been and does not have any children. 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 She denies any history of alcohol, tobacco or illicit substance use. Code status: Full code Surrogate decision maker: Dora Peres (sister) Caffeine-green tea, occasional soda Smoking status: Never smoker Alcohol intake: never Substance use: never Substance use type: does not use Do You Feel Safe in your Home?: Yes Lack of Transportation: No Lack of Food: Never True Current Housing: I Have Housing Concerned About Future Housing: No Difficulty Paying Gas/Electric Bills: No Difficulty Paying for Meds: No Currently Unemployed: No Education: Associate Degree Difficulty w/ Childcare or Family Care: No Spiritual care concerns: No Meds Home Medications and Allergies Home Medications ?Medication ?Instructions ?Recorded ?Confirmed ?Type lisinopril 20 mg tablet 10 mg PO HS 10/26/24 02/04/25 History Allergies Allergy/AdvReac Type Severity Reaction Status Date / Time amoxicillin (From Augmentin) Allergy Intermediate Hives Verified 02/04/25 16:47 clavulanic acid (From Allergy Intermediate Hives Verified 02/04/25 16:47 Augmentin) Penicillins Allergy Intermediate Itching Verified 02/04/25 16:47 Vital Signs Vital Signs - 24 hr 02/04/25 11:28 02/04/25 11:29 02/04/25 11:29 Temperature Pulse Rate 123 H 125 H 124 H Respiratory Rate 32 H 30 H 18 Blood Pressure 130/81 151/88 H Pulse Oximetry 97 97 97 Oxygen Delivery Nasal Cannula Oxygen Flow Rate 4 02/04/25 11:30 02/04/25 11:31 02/04/25 11:43 Temperature Pulse Rate 122 H 124 H Respiratory Rate 20 34 H Blood Pressure 130/81 Pulse Oximetry 97 97 97 Oxygen Delivery Nasal Cannula Oxygen Flow Rate 4 02/04/25 11:45 02/04/25 11:46 02/04/25 12:00 Temperature Pulse Rate 123 H 121 H 118 H Respiratory Rate 25 H 23 H 28 H Blood Pressure 133/93 H 134/85 Pulse Oximetry 97 96 94 Oxygen Delivery Oxygen Flow Rate 02/04/25 12:01 02/04/25 12:15 02/04/25 12:16 Temperature Pulse Rate 119 H 118 H 122 H Respiratory Rate 22 H Blood Pressure 127/85 Pulse Oximetry 95 94 95 Oxygen Delivery Oxygen Flow Rate 02/04/25 12:30 02/04/25 12:31 02/04/25 12:45 Temperature Pulse Rate 117 H 117 H 116 H Respiratory Rate 26 H Blood Pressure 123/84 137/75 Pulse Oximetry 94 95 92 Oxygen Delivery Oxygen Flow Rate 02/04/25 12:46 02/04/25 12:46 02/04/25 13:00 Temperature Pulse Rate 115 H 113 H Respiratory Rate 24 H Blood Pressure 126/78 Pulse Oximetry 94 98 Oxygen Delivery Oxygen Flow Rate 02/04/25 13:01 02/04/25 13:15 02/04/25 13:16 Temperature Pulse Rate 117 H 119 H Respiratory Rate Blood Pressure 144/83 H Pulse Oximetry 99 98 97 Oxygen Delivery Oxygen Flow Rate 02/04/25 13:30 02/04/25 13:31 02/04/25 13:45 Temperature Pulse Rate 116 H 112 H 117 H Respiratory Rate 22 H Blood Pressure 142/89 H 135/78 Pulse Oximetry 96 98 92 Oxygen Delivery Oxygen Flow Rate 02/04/25 13:46 02/04/25 13:47 02/04/25 14:00 Temperature Pulse Rate 119 H 118 H 115 H Respiratory Rate 34 H 22 H Blood Pressure 124/75 Pulse Oximetry 94 93 Oxygen Delivery Oxygen Flow Rate 02/04/25 14:01 02/04/25 14:22 02/04/25 14:30 Temperature Pulse Rate 117 H 116 H Respiratory Rate 26 H 29 H Blood Pressure Pulse Oximetry 97 90 91 Oxygen Delivery Oxygen Flow Rate 02/04/25 14:45 02/04/25 15:00 02/04/25 15:15 Temperature Pulse Rate Respiratory Rate Blood Pressure Pulse Oximetry 90 90 91 Oxygen Delivery Oxygen Flow Rate 02/04/25 15:33 02/04/25 15:45 02/04/25 16:00 Temperature Pulse Rate 115 H 116 H Respiratory Rate 21 H 29 H Blood Pressure Pulse Oximetry 92 94 93 Oxygen Delivery Oxygen Flow Rate 02/04/25 17:49 02/04/25 20:00 02/04/25 20:17 Temperature 36.3 C L Pulse Rate 116 H Respiratory Rate 22 H Blood Pressure 142/77 H Pulse Oximetry 94 97 95 Oxygen Delivery Nasal Cannula Oxygen Flow Rate 4 4 02/04/25 20:17 02/04/25 20:22 02/04/25 22:31 Temperature 36.2 C L Pulse Rate 113 H 110 H 102 H Respiratory Rate 18 18 20 Blood Pressure 152/80 H Pulse Oximetry 93 Oxygen Delivery Oxygen Flow Rate 02/05/25 00:00 02/05/25 01:56 02/05/25 02:02 Temperature 36.6 C Pulse Rate 100 101 H 108 H Respiratory Rate 18 18 18 Blood Pressure 100/55 L Pulse Oximetry 95 Oxygen Delivery Oxygen Flow Rate 02/05/25 04:56 02/05/25 08:00 02/05/25 08:02 Temperature 36.1 C L Pulse Rate 100 97 98 Respiratory Rate 18 20 20 Blood Pressure 100/51 L 130/64 Pulse Oximetry 98 98 Oxygen Delivery Oxygen Flow Rate 02/05/25 08:03 02/05/25 08:09 Temperature Pulse Rate 93 97 Respiratory Rate 20 Blood Pressure Pulse Oximetry 98 Oxygen Delivery Nasal Cannula Oxygen Flow Rate 4 Exam Const: General: cooperative and comfortable Orientation/consciousness: oriented to person, oriented to place and oriented to time Other: Morbidly obese HENMT: Head: normal to inspection Ears: hearing grossly normal bilaterally Eyes: General: appearance normal, both eyes and all related structures Neck: Neck: normal visual inspection Chest: Chest palpation & inspection: normal inspection of the chest Resp: Effort & Inspection: normal respiratory effort and able to speak in complete sentences Auscultation: no crackles, no rales, no rhonchi, wheezes and lung sounds not diminished Other: scant expiratory wheezes left upper lobe. Cardio: Jugular venous distension: no JVD Other: Tachycardic GI: Inspection: normal to inspection GI Palp: No abdominal tenderness Skin: General skin exam: normal color Neuro: General: oriented to person, oriented to place and oriented to time Extrem: General: normal to inspection Other: no edema Psych: Appearance: grossly normal Results Laboratory Findings 02/05/25 06:02 02/05/25 06:01 Abnormal lab findings: Abnormal Labs 02/04/25 02/04/25 02/05/25 12:05 16:49 06:01 WBC 12.4 H RBC 5.62 H Hgb 15.1 H Hct 48.2 H MCHC 31.3 L RDW 14.6 H Immature Gran % (Auto) Neut % (Auto) 75.1 H Lymph % (Auto) 17.2 L [place] % (Auto) Baso % (Auto) Abs Immat Gran (auto) 0.05 H Absolute Neuts (auto) 9.3 H Sodium 134 L 136 L 136 L Chloride 95 L 97 L Carbon Dioxide 31 H 32 H Anion Gap 3 L Creatinine 0.60 L 0.64 L 0.61 L Glucose 139 H 173 H 153 H C-Reactive Protein 4.7 H NT-Pro-B Natriuret Pep 179 H 02/05/25 06:02 WBC RBC Hgb Hct MCHC 30.4 L RDW 14.6 H Immature Gran % (Auto) 0.6 H Neut % (Auto) 83.6 H Lymph % (Auto) 13.4 L [place] % (Auto) 2.4 L Baso % (Auto) 0.0 L Abs Immat Gran (auto) 0.06 H Absolute Neuts (auto) 8.1 H Sodium Chloride Carbon Dioxide Anion Gap Creatinine Glucose C-Reactive Protein NT-Pro-B Natriuret Pep Diagnostic Findings Additional studies: ITS Impressions Chest X-Ray 02/04/25 14:20 IMPRESSION: 1. Apparent left basilar opacity as before, probably soft tissue artifact but atelectasis and/or airspace disease not excluded.
[2025-02-05] MEDS: ACETAMINOPHEN 325 MG TABLET 650 MG PO (09:50)
--- NOTE | 2025-02-05 10:24 | P.PNIM_ITS ---
Progress Note: A&P Assessment and Plan (1) Tachycardia: Code(s): R00.0 - Tachycardia, unspecified Status: Acute Assessment and Plan: Likely due to acute infection IVF Telemetry (2) Community acquired pneumonia: Qualifiers: Laterality: unspecified laterality Qualified Code(s): J18.9 - Pneumonia, unspecified organism Code(s): J18.9 - Pneumonia, unspecified organism Status: Acute Assessment and Plan: Pulmonary IV Rocephin and azithromycin Blood cultures pending DuoNebs Guaifenesin pulm was consulted. Dr Muhammad's note reviewed: Plan: Continue ceftriaxone and azithromycin, day 2 antibiotics. Continue guaifenesin 1200 mg p.o. b.i.d.. I will send a MRSA nasal swab, respiratory pathogen panel, urine Legionella antigen, urine pneumococcal antigen and serum IgM for mycoplasma. I will obtain a CT scan of the chest to assess for infiltrates. Of note, patient has extensive sinusitis and will require surgery per ENT. Currently she says her sinuses are at her baseline. in the past she has declined Flonase, Astelin, ipratropium and does not wish for any nasal medicines at this time. ENT had ordered streptococcal pneumonia IgG levels for 23 sero types and all but 2 are low. As an initial workup, I will send immunoglobulin G, M, A and E levels. I will send immunoglobulin G sub classes. with ventrally need full immunodeficiency workup by Allergy and immunology. (3) Acute hypoxemic respiratory failure: Code(s): J96.01 - Acute respiratory failure with hypoxia Status: Acute Assessment and Plan: Normally wears 2 L at night Wean oxygen as able to baseline (4) Hypertension: Qualifiers: Hypertension type: primary hypertension Qualified Code(s): I10 - Essential (primary) hypertension Code(s): I10 - Essential (primary) hypertension Status: Chronic Assessment and Plan: Continue home lisinopril reviewed and stable Time Spent With Patient Time with patient: 25 - 35 minutes Subjective Date/time seen: 02/05/25 10:24 Interval history: 64-year-old female on on 2 L of oxygen at night for deviated septum, hypertension presents the hospital with shortness of breath. Patient states that she was seeing ENT for her deviated septum and was told that she had a bacteremia with Klebsiella. Patient states that she was diagnosed with pneumonia back in October and has had a persistent cough since then. Patient states that she has been sick for the last several months. She states that it started with a fall where she broke her nose. She has been seeing ENT and has recommended surgery for deviated septum. She states that for the last several nights she has been sleeping sitting up in his been unable to lay flat. She states that she has no history of lung disease, she has never smoked, asthma or COPD. Patient denies fevers chills nausea or vomiting. Lab work in the ED shows leukocytosis at 12.4, hemoglobin of 15.1, sodium of 134, chloride of 95, carbon dioxide 31, creatinine of 0.60, glucose of 139, x- ray shows left basilar opacity possible pneumonia. EKG shows sinus tachycardia 121. Patient was given azithromycin and Rocephin in the emergency room. 02/05 pt is seen and examined. PUlm was consulted Dr Muhammad saw pt. off oxygen now-still reports sob but feeling a bit better. no n/v/d Review of Systems Review of Systems: 12 systems were reviewed and are negativ e except for as per HPI. All systems reviewed & are unremarkable except as noted in HPI and below Exam Narrative: General: well appearing, appears stated age. Obese, ra HEENT: normocephalic, atraumatic. Mucous membranes moist. EOMI, PERRLA, bilateral sclera anicteric, no conjunctival injection. Neck supple without JVD, lymphadenopathy, or bruit. Respiratory: Diminished bilateral expiatory wheezes Cardiovascular: Regular rate and rhythm, normal S1-S2 upon ascultation. No murmurs, rubs, or clicks. PMI is nondisplaced, capillary refill less than 3 second. Abdomen: Soft, round, no pulsatile masses, nondistended and nontender. No rebo und, no guarding. No CVA tenderness, no hepatosplenomegaly. Bowel sounds present to all four quadrants. Extremities: No cyanosis, clubbing, or edema present. Pulses are palpable 2/2. Active ROM to all four extremities. Neuro: Alert and orientated x 4. PERRLA. Cranial nerves 2-12 intact without focal deficit. Skin: Warm, dry, and intact, without rash, erythema, or lesion. Psych: pleasant, cooperative, normal speech, normal affect, no hallucinations, no dysarthia Const: General: comfortable Objective Data Vital Signs Vital Signs: Vital Signs - 24 hr 02/04/25 11:28 02/04/25 11:29 02/04/25 11:29 Temperature Pulse Rate 123 H 125 H 124 H Respiratory Rate 32 H 30 H 18 Blood Pressure 130/81 151/88 H Pulse Oximetry 97 97 97 Oxygen Delivery Nasal Cannula Oxygen Flow Rate 4 02/04/25 11:30 02/04/25 11:31 02/04/25 11:43 Temperature Pulse Rate 122 H 124 H Respiratory Rate 20 34 H Blood Pressure 130/81 Pulse Oximetry 97 97 97 Oxygen Delivery Nasal Cannula Oxygen Flow Rate 4 02/04/25 11:45 02/04/25 11:46 02/04/25 12:00 Temperature Pulse Rate 123 H 121 H 118 H Respiratory Rate 25 H 23 H 28 H Blood Pressure 133/93 H 134/85 Pulse Oximetry 97 96 94 Oxygen Delivery Oxygen Flow Rate 02/04/25 12:01 02/04/25 12:15 02/04/25 12:16 Temperature Pulse Rate 119 H 118 H 122 H Respiratory Rate 22 H Blood Pressure 127/85 Pulse Oximetry 95 94 95 Oxygen Delivery Oxygen Flow Rate 02/04/25 12:30 02/04/25 12:31 02/04/25 12:45 Temperature Pulse Rate 117 H 117 H 116 H Respiratory Rate 26 H Blood Pressure 123/84 137/75 Pulse Oximetry 94 95 92 Oxygen Delivery Oxygen Flow Rate 02/04/25 12:46 02/04/25 12:46 02/04/25 13:00 Temperature Pulse Rate 115 H 113 H Respiratory Rate 24 H Blood Pressure 126/78 Pulse Oximetry 94 98 Oxygen Delivery Oxygen Flow Rate 02/04/25 13:01 02/04/25 13:15 02/04/25 13:16 Temperature Pulse Rate 117 H 119 H Respiratory Rate Blood Pressure 144/83 H Pulse Oximetry 99 98 97 Oxygen Delivery Oxygen Flow Rate 02/04/25 13:30 02/04/25 13:31 02/04/25 13:45 Temperature Pulse Rate 116 H 112 H 117 H Respiratory Rate 22 H Blood Pressure 142/89 H 135/78 Pulse Oximetry 96 98 92 Oxygen Delivery Oxygen Flow Rate 02/04/25 13:46 02/04/25 13:47 02/04/25 14:00 Temperature Pulse Rate 119 H 118 H 115 H Respiratory Rate 34 H 22 H Blood Pressure 124/75 Pulse Oximetry 94 93 Oxygen Delivery Oxygen Flow Rate 02/04/25 14:01 02/04/25 14:22 02/04/25 14:30 Temperature Pulse Rate 117 H 116 H Respiratory Rate 26 H 29 H Blood Pressure Pulse Oximetry 97 90 91 Oxygen Delivery Oxygen Flow Rate 02/04/25 14:45 02/04/25 15:00 02/04/25 15:15 Temperature Pulse Rate Respiratory Rate Blood Pressure Pulse Oximetry 90 90 91 Oxygen Delivery Oxygen Flow Rate 02/04/25 15:33 02/04/25 15:45 02/04/25 16:00 Temperature Pulse Rate 115 H 116 H Respiratory Rate 21 H 29 H Blood Pressure Pulse Oximetry 92 94 93 Oxygen Delivery Oxygen Flow Rate 02/04/25 17:49 02/04/25 20:00 02/04/25 20:17 Temperature 97.4 F L Pulse Rate 116 H Respiratory Rate 22 H Blood Pressure 142/77 H Pulse Oximetry 94 97 95 Oxygen Delivery Nasal Cannula Oxygen Flow Rate 4 4 02/04/25 20:17 02/04/25 20:22 02/04/25 22:31 Temperature 97.1 F L Pulse Rate 113 H 110 H 102 H Respiratory Rate 18 18 20 Blood Pressure 152/80 H Pulse Oximetry 93 Oxygen Delivery Oxygen Flow Rate 02/05/25 00:00 02/05/25 01:56 02/05/25 02:02 Temperature 98 F Pulse Rate 100 101 H 108 H Respiratory Rate 18 18 18 Blood Pressure 100/55 L Pulse Oximetry 95 Oxygen Delivery Oxygen Flow Rate 02/05/25 04:56 02/05/25 08:00 02/05/25 08:02 Temperature 97.0 F L Pulse Rate 100 97 98 Respiratory Rate 18 20 20 Blood Pressure 100/51 L 130/64 Pulse Oximetry 98 98 Oxygen Delivery Oxygen Flow Rate 02/05/25 08:03 02/05/25 08:09 Temperature Pulse Rate 93 97 Respiratory Rate 20 Blood Pressure Pulse Oximetry 98 Oxygen Delivery Nasal Cannula Oxygen Flow Rate 4 Intake/Output Intake/Output: Intake & Output 02/02/25 02/03/25 02/04/25 02/05/25 23:59 23:59 23:59 23:59 Intake Total 490 1550 Balance 490 1550 Meds/Results Medications: Active Medications Generic Name Dose Route Start Last Admin Trade Name Freq PRN Reason Stop Dose Admin Acetaminophen 650 mg 02/04/25 15:11 02/05/25 09:50 Acetaminophen 325 Mg Tablet PO 650 mg Q4H PRN Administration Mild Pain (1-3) or Fever Hydrocodone Bitart/Acetaminophen 1 tab 02/04/25 15:11 Hydrocodone/Acetaminophen (*Crx) 5-325 Mg Tablet PO Q4H PRN Pain Rated 4-6 Budesonide 0.5 mg 02/05/25 10:10 Budesonide Respule Neb 0.5 Mg/2 Ml Amp INHALATION Q12HRT NIURKA Docusate Sodium 100 mg 02/04/25 16:35 Docusate Sodium 100 Mg Capsule PO BID PRN Constipation Enoxaparin Sodium 40 mg 02/05/25 09:00 02/05/25 09:42 Enoxaparin 40 Mg/0.4 Ml Syringe SUB-Q 40 mg DAILY NIURKA Administration Guaifenesin 1,200 mg 02/04/25 21:00 02/05/25 09:41 Guaifenesin 12 Hr 600 Mg Tabcr PO 1,200 mg Q12HR NIURKA Administration Ceftriaxone Sodium 1 gm/ 50 mls @ 100 mls/hr 02/05/25 16:00 Sodium Chloride IVPB Q24H NIURKA Azithromycin 500 mg/ Sodium 250 mls @ 250 mls/hr 02/05/25 17:00 Chloride IVPB 02/08/25 17:59 Q24H NIURKA Sodium Chloride 1,000 mls @ 125 mls/hr 02/04/25 16:50 02/05/25 09:54 Normal Saline Iv IV CONT Infused .Q8H NIURKA Infusion Ipratropium [place] 0.5 mg 02/05/25 14:00 Ipratropium Br 0.02% Inh Soln 0.5 Mg/2.5 Ml Vial INHALATION Q6HRT NIURKA Lisinopril 10 mg 02/04/25 21:00 02/04/25 22:20 Lisinopril 10 Mg Tablet PO 10 mg HS NIURKA Administration Morphine Sulfate 2 mg 02/04/25 15:17 Morphine Sulfate (*Crx) 4 Mg/Ml Inj IV PUSH Q2H PRN Pain Rated 7-10 Promethazine HCl 12.5 mg 02/04/25 15:11 Promethazine Hcl 25 Mg/Ml Ampul IV PUSH Q6H PRN Nausea Radiology Results: ITS Impressions Chest X-Ray 02/04/25 14:20 IMPRESSION: 1. Apparent left basilar opacity as before, probably soft tissue artifact but atelectasis and/or airspace disease not excluded. Labs Labs: Laboratory Results - last 24 hr 02/04/25 02/04/25 02/04/25 12:05 15:43 16:49 WBC 12.4 H RBC 5.62 H Hgb 15.1 H Hct 48.2 H MCV 85.8 MCH 26.9 MCHC 31.3 L RDW 14.6 H Plt Count 354 MPV 8.8 Immature Gran % (Auto) 0.4 Neut % (Auto) 75.1 H Lymph % (Auto) 17.2 L [place] % (Auto) 4.7 Eos % (Auto) 2.2 Baso % (Auto) 0.4 Lymph # (Auto) 2.12 [place] # (Auto) 0.6 Eos # (Auto) 0.3 Baso # (Auto) 0.1 Abs Immat Gran (auto) 0.05 H Absolute Neuts (auto) 9.3 H Absolute Nucleated RBC 0.000 Nucleated RBC % 0.0 Sodium 134 L 136 L Potassium 4.8 4.5 Chloride 95 L 97 L Carbon Dioxide 31 H 29 Anion Gap 8 10 BUN 14 13 Creatinine 0.60 L 0.64 L Estim Creat Clear Calc Not Reportable Not Reportable Estimated GFR > 60 > 60 Glucose 139 H 173 H Lactic Acid 1.5 Calcium 8.8 8.8 Total Bilirubin 0.6 AST 33 ALT 20 Alkaline Phosphatase 116 C-Reactive Protein NT-Pro-B Natriuret Pep Total Protein 8.2 Albumin 4.1 Procalcitonin 02/05/25 02/05/25 06:01 06:02 WBC 9.7 RBC 5.06 Hgb 13.4 Hct 44.1 MCV 87.2 MCH 26.5 MCHC 30.4 L RDW 14.6 H Plt Count 326 MPV 9.2 Immature Gran % (Auto) 0.6 H Neut % (Auto) 83.6 H Lymph % (Auto) 13.4 L [place] % (Auto) 2.4 L Eos % (Auto) 0.0 Baso % (Auto) 0.0 L Lymph # (Auto) 1.30 [place] # (Auto) 0.2 Eos # (Auto) 0.0 Baso # (Auto) 0.0 Abs Immat Gran (auto) 0.06 H Absolute Neuts (auto) 8.1 H Absolute Nucleated RBC 0.000 Nucleated RBC % 0.0 Sodium 136 L Potassium 4.8 Chloride 101 Carbon Dioxide 32 H Anion Gap 3 L BUN 15 Creatinine 0.61 L Estim Creat Clear Calc Not Reportable Estimated GFR > 60 Glucose 153 H Lactic Acid Calcium 8.7 Total Bilirubin 0.2 AST 28 ALT 16 Alkaline Phosphatase 91 C-Reactive Protein 4.7 H NT-Pro-B Natriuret Pep 179 H Total Protein 7.0 Albumin 3.5 Procalcitonin 0.1 Quality VTE Prophylaxis VTE prophylaxis: mechanical ordered and pharmacologic ordered
[2025-02-05 11:08] LABS: Influenza A QL RT-PCR Negative (Negative); Influenza B QL RT-PCR Negative (Negative); RSV RNA, RT-PCR Negative (Negative); SARS-CoV-2 RNA PCR Negative (Negative)
[2025-02-05 11:41] LABS: MRSA (PCR) NOT DETECTED (NOT DETECTE)
--- NOTE | 2025-02-05 15:28 | PCRCNOTE ---
Window of time for administration has passed. See next scheduled administration.
[2025-02-05] MEDS: IPRATROPIUM BR 0.02% INH SOLN 0.5 MG/2.5 ML VIAL INHALATION ×2 (15:42→20:29)
[2025-02-05] MEDS: cefTRIAXone 1 GM in SODIUM CHLORIDE 0.9% IV 50 ML 100 ML IVPB (16:29)
[2025-02-05] MEDS: AZITHROMYCIN IV 500 MG in SODIUM CHLORIDE 0.9% IV 250 ML IVPB (17:12)
[2025-02-05] MEDS: BUDESONIDE RESPULE NEB 0.5 MG/2 ML AMP INHALATION (20:30)
[2025-02-05] MEDS: SODIUM CHLORIDE 0.9% IV 1,000 ML 125 ML IV CONT (21:22)
[2025-02-06] VITALS (16 sets, daily range): BP systolic 107–143; BP diastolic 59–81; PULSE 73–98; RESP 14–20; TEMP 36.1–36.4; O2SAT 92–98
[2025-02-06] MEDS: IPRATROPIUM BR 0.02% INH SOLN 0.5 MG/2.5 ML VIAL INHALATION ×4 (02:25→20:50)
[2025-02-06] MEDS: SODIUM CHLORIDE 0.9% IV 1,000 ML 125 ML IV CONT ×2 (05:23→23:08)
[2025-02-06 06:41] LABS: Hematocrit 43.0 % (37.0-47.0); Hemoglobin 12.6 g/dL (12.0-15.0); Mean Corpuscular HGB Conc 29.3 g/dl (32-36); Mean Corpuscular Hemoglobin 26.4 pg (26-34); Mean Corpuscular Volume 90.0 fl (80-100); Platelet Count Result 301 k/mm3 (150-375); Red Blood Count 4.78 M/mm3 (4.2-5.4); White Blood Count 9.6 K/mm3 (4.5-10.0)
[2025-02-06 07:03] LABS: Anion Gap 2 mmol/L (4-12); Blood Urea Nitrogen 19 mg/dL (7-17); Calcium 7.8 mg/dL (8.4-10.2); Carbon Dioxide 31 mmol/L (22-30); Chloride 105 mmol/L (98-107); Estimated Glomerular Filt Rate > 60; Glucose 92 mg/dL (65-110); Potassium 4.1 mmol/L (3.4-5.0); Sodium 138 mmol/L (137-145)
[2025-02-06] MEDS: BUDESONIDE RESPULE NEB 0.5 MG/2 ML AMP INHALATION ×2 (08:00→20:50)
[2025-02-06] MEDS: guaiFENesin 12 HR 600 MG TABCR 1200 MG PO ×2 (09:35→21:21)
[2025-02-06] MEDS: ENOXAPARIN 40 MG/0.4 ML SYRINGE SUB-Q (09:35)
--- NOTE | 2025-02-06 11:38 | P.PNPL_ITS ---
Progress Note: A&P Assessment and Plan (1) Community acquired pneumonia: Qualifiers: Laterality: unspecified laterality Qualified Code(s): J18.9 - Pneumonia, unspecified organism Code(s): J18.9 - Pneumonia, unspecified organism Status: Acute Assessment and Plan: patient presents with feeling cold and clammy, worsening dyspnea on exertion, little bit of cough with no change in her phlegm, no change in her sinuses, leukocytosis 12.4 and chest x-ray with a left base infiltrate with no change fr om 12/12/2024. Her CRP is 4.7, procalcitonin 0.1. Blood cultures are pending. The patient may or may not have a pneumonia. 02/05/2025: The patient tells me she is doing better. She feels 50% back to her baseline. She is tired with no shortness of breath at rest and her dyspnea on exertion when she walks to the bathroom is improved. Her phlegm production is the same and her postnasal drip is the same. She is afebrile. Her white blood cell count is 9.7, creatinine is 0.61, BNP is 179, CRP is 4.7, procalcitonin is 0.1. her weight today is 114.9 kg. Plan: Continue ceftriaxone and azithromycin, day 2 antibiotics. Continue guaifenesin 1200 mg p.o. b.i.d.. I will send a MRSA nasal swab, respiratory pathogen panel, urine Legionella antigen, urine pneumococcal antigen and serum IgM for mycoplasma. I will obtain a CT scan of the chest to assess for infiltrates. Of note, patient has extensive sinusitis and will require surgery per ENT. Currently she says her sinuses are at her baseline. in the past she has declined Flonase, Astelin, ipratropium and does not wish for any nasal medicines at this time. ENT had ordered streptococcal pneumonia IgG levels for 23 sero types and all but 2 are low. As an initial workup, I will send immunoglobulin G, M, A and E levels. I will send immunoglobulin G sub classes. with ventrally need full immunodeficiency workup by Allergy and immunology. Of note, patient had expiratory wheezes in the emergency room and is currently being treated with DuoNebs and levalbuterol. Her heart rate was 115 today. Patient says she cannot tolerate inhalers as they aggravate her coughing. I will discontinue beta agonist and place her on nebulized ipratropium, and nebulized budesonide 500 mcg b.i.d.. Later in the day patient had a CT scan of the chest and compared with 12/12/2024 there was resolution of the prior left upper lobe infiltrate. There is a new anterior segment of the right upper lobe infiltrate and new mosaic attenuation bilateral upper lobes. 02/06/2025: Patient says she is better. She has no rest shortness of breath and she had no dyspnea on exertion walking to the bathroom. Her cough is decreased but she has green phlegm which is about the same. She has congestion in the nose and the lungs. The nebulized treatments are helping her. She is on room air with saturations 98%. She were 2 L nasal cannula at night. She is afebrile. White blood cell count 9.6, creatinine 0.62. COVID influenza and RSV RT PCR assay negative. Plan: Continue ceftriaxone and azithromycin, day 3 of antibiotics. Continue guaifenesin 1200 mg p.o. b.i.d.. MRSA nasal swab negative, respiratory pathogen panel, urine Legionella antigen, urine pneumococcal antigen and serum IgM for mycoplasma. Patient states she is tolerating the nebulized ipratropium and budesonide and will continue these for now. patient with areas of upper lobe mosaic attenuation on her CT scan of the chest and I will send serologies for connective tissue disorder. I will order a GALILEA screen that includes 11 different auto antibodies, an ANCA screen, a rheumatoid factor, anti CCP antibody, hypersensitivity pneumonitis panel, a CPK, an aldolase level, and myomarker 3 plus profile. (2) Acute hypoxemic respiratory failure: Code(s): J96.01 - Acute respiratory failure with hypoxia Status: Acute Assessment and Plan: Patient presented and required 4 L nasal cannula oxygen on 02/04/2025. 02/05/25: When I enter the room she was on 4 L nasal cannula saturations 96%. I decreased her to room air and her saturations were 92%. Plan: Goal saturation 90-94%, adjust oxygen accordingly. 02/06/25: Patient remains on room air with saturations 98%. (3) Daytime hypersomnia: Code(s): G47.10 - Hypersomnia, unspecified Status: Acute Assessment and Plan: Patient is morbidly obese with a BMI of 53.0, she snores, no sleeping partner but has never been told she stops breathing in her sleep, she takes 1 nap a day. ABG on 3 L 7.40/46/69. TSH 4.92 on 10/22/2023. patient has nocturnal hypoxia on room air which was corrected with 2 L nasal cannula. 02/05/25: patient tells me that she has reluctantly been wearing 2 L oxygen at night. Plan: Continue 2 L nasal cannula at night. Patient was called about her outpatient split night sleep study but declined to schedule this and said she would call back in the future. she will need outpatient sleep study. 02/06/2025: Plan: Continue 2 L nasal cannula at night. Subjective Date/time seen: 02/06/25 11:38 Interval history: 02/05/2025: This is a new pulmonary consult for hypoxemic respiratory failure and pneumonia. I have seen this patient in consultation from her last admission 12/10/2024 through 12/16/2024 and in the office on 01/06/2025. 64-year-old with a history of hypertension, nasal polyps and obesity. Patient has a history of a fall with nose trauma in 2023 and since then has had nasal congestion and drainage.? Patient is a never smoker, no exposures secondhand smoke.? 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 occasionally she reacts when she is exposed to her cats at home with coughing and wheezing if the cats jump near her face. In 09/2024 she went [facility] with sinus congestion and drainage to the throat and was given doxycycline. Her nasal drainage got worse. 10/26/2024 through 10/29/2024. Admitted to [facility] with SOB, TOBIN, cough, wheezing, and fever. Treated with antibiotics and discharged on prednisone, Augmentin and azithromycin. She felt better when she was discharged and did well for the next 2 weeks. Approximately 11/12/24 she was having work done in her house and there was mold in the mendieta and the construction crew was painting. She developed a slight cough with some chest tightness an upper wheezing. She went to her PCP on 12/03/2024 and was prescribed Augmentin which she started on 12/06/2024. On 12/08/2024 she notices her breathing was worse, her phlegm increased and she developed welts and skin rashes. She stopped the Augmentin. 12/10/2024 through 12/16/2024: Admitted to [facility]. On 12/10/24 her breathing was worse. She had TOBIN but no rest SOB. On 12/12, She presented to the ED with blood pressure of 189/113, heart rate 118, room air saturations 89% and with 2 L her saturations were 100%. She was treated with DuoNeb and magne sium and given 30 mL/kilos. Her white blood cell count was 13.1, eosinophils 5.1%=668/uL, creatinine was 0.61, her BNP was 174. MRSA swab negative. COVID influenza RSV RT PCR assay negative. She had a CTA of the chest that showed no PE with minimal bilateral upper lobe infiltrates. She was started on vancomycin and cefepime. On 12/13 she was changed to Levaquin and prednisone was started. Patient was seen by ENT and she has a right deviation of her septum with crusting and obstruction on the right, recommended saline spray 3 spray each nostril 3 times a day for 10 days.? Her breathing improved.? She remained with sinus congestion and drainage.? Home O2 assessment demonstrated no oxygen at rest or with activity.? Overnight oximetry on room air with hypoxemia.? Overnight oximetry on 2 L with adequate oxygenation.? She was not convinced the DuoNebs were helping her and she has had trouble with inhalers at home and I discontinued the DuoNebs. Patient told me that guaifenesin makes her stomach hurt. She improved and was discharged on 12/16 on Levaquin 750 mg x5 days, last dose to be 12/21/2024, saline nasal spray 3 sprays each nostril 3 times a day per ENT.? Of note the patient had 2 cats and she says that when she is close to the cats or when they jump near her face she gets shortness of breath and wheezing. She has been skin tested negative for cat allergy. ??I recommended removal of the cats from the house.? If she could not do this, to take them out of the bedroom at night and obtain a HEPA filter for the bedroom.? 01/06/25: Today she tells me that she finished her Levaquin when she was discharged from the hospital. Overall the patient says she is doing a little bit better. Her activity level remains at room to room but she seems to be get ting a little bit stronger. Her major complaint today is cough with postnasal drip. The patient tells me that she coughs 0-5 times an hour and when she coughs the last 1 minute. The cough is always provoked by postnasal drip. One she coughs up and expectorates the cough resolves. The cough is worse when she lays back and has sinus drainage down the right side of her nose and throat. The cough is improved when she sits up. At times within the patient has mucus in her chest she will have wheezing. When she coughs the mucus up the wheezing resolves. She does not expel any mucus out her nose it always drains backwards. Patient denies choking on her food. Patient has never had any nose bleeds or hemoptysis. Two of her physicians, PCP and director of enterprise architecture, have previously recommended Flonase nasal spray but she has declined this in the past. She has taken [id number] antihistamines but these make her jittery and dizzy. Regarding contributing factors she is still having house remodeling That was associated with mold in the house, painting in the house and dust in the house but they are scheduled to finish in 5 days. the patient has an indoor cat. She has remove the cat from the bedroom at night. She has not brought HEPA filter. She is scheduled to follow-up with ENT on 01/21/2025. Patient states that she has broken teeth for at least 3 years and that these need to be removed but she has failed to follow-up on this. Currently she is on no Medicinal inhalers. she takes saline nasal spray 3 sprays each nostril 2 to 3 times a day. Patient does have some daytime hypersomnia, a sister in the room says she naps during the day, she does not feel refreshed when she wakes up. She denies morning headaches. Her weight today is 255 lb. Her Mahomet score today is 2. She continues to wear 2 L nasal cannula at night and says that she thinks this may be helping her. Patient does not smoke and is not exposed to secondhand smoke. Patient does not exercise. Patient declines all vaccines. Plan was to treat her with Flonase, Astelin and ipratropium. Patient said she would try Flonase but not Astelin or ipratropium. She was to see a dentist to remove her right in teeth. She was to get a HEPA filter for her bedroom, avoid exposure to the cats, obtain PFTs, and a split night sleep study was ordered. Patient has not seen a dentist, she did not take the Flonase, she did get a HEPA filter for her room and has decreased exposure to her cats who are no longer in her bedroom. PFTs are scheduled she declined the split night sleep study and would call back for another appointment. Her patient saw ENT on 01/19/2025 who stated she is not using the Flonase as prescribed. CT scan of the sinuses showed moderate pansinusitis. She was prescribed Bactrim and recommended to have bilateral frontal sinus balloon dilation,bilateral , complete ethmoidectomy, bilateral maxillary antrostomy, bilateral inferior turbinate submucous resection , and septoplasty. This is not been scheduled. Currently over the last 2-4 days she has felt cold and clammy. She has had no rigors or diaphoresis. At baseline she has dyspnea on exertion room to room and this was worse. She has no rest shortness of breath. She had intermittent wheezes improved with albuterol. Her cough was a little more than usual with no change in her phlegm and no hemoptysis. Her sinuses are unchanged with her normal postnasal drip. 02/04/2025: Patient presented to the emergency room with a blood pressure 142/77, heart rate 123, 4 L nasal cannula saturation 95%. She had wheezing and rales. White blood cell count was 12.4 with eosinophils 2.2, creatinine 0.64. Chest x-ray showed left base infiltrate with no change from 12/12/2024. Patient was started on ceftriaxone, azithromycin, guaifenesin 1200 b.i.d. DuoNebs and levalbuterol. 02/05/2025: The patient tells me she is doing better. She feels 50% back to her baseline. She is tired with no shortness of breath at rest and her dyspnea on exertion when she walks to the bathroom is improved. Her phlegm production is the same and her postnasal drip is the same. She is afebrile. When I enter the room she was on 4 L nasal cannula saturations 96%. I decreased her to room air and her saturations were 92%. Her white blood cell count is 9.7, creatinine is 0.61, BNP is 179, CRP is 4.7, procalcitonin is 0.1. her weight today is 114.9 kg. Later in the day patient had a CT scan of the chest and compared with 12/12/2024 there was resolution of the prior left upper lobe infiltrate. There is a new anterior segment of the right upper lobe infiltrate and new mosaic attenuation bilateral upper lobes. 02/06/2025: Patient says she is better. She has no rest shortness of breath and she had no dyspnea on exertion walking to the bathroom. Her cough is decreased but she has green phlegm which is about the same. She has congestion in the nose and the lungs. The nebulized treatments are helping her. She is on room air with saturations 98%. She were 2 L nasal cannula at night. She is afebrile. White blood cell count 9.6, creatinine 0.62. COVID influenza and RSV RT PCR assay negative. DATA: 02/05/25: EXAMINATION: CT diagnostic chest wo nicolasa, 02/05/2025 12:50 CDT HISTORY: pneumonia COMPARISON: No comparisons available. TECHNIQUE: CT scan of the chest was performed without IV contrast. One or more of the following dose reduction techniques were used: automated exposure control, adjustment of the mA and/or kV according to patient size, use of iterative reconstruction technique. FINDINGS: No significant coronary calcification is present ([id number]) LUNGS: No tracheomalacia. No bronchiectasis. Minimal emphysematous changes. Minimal pulmonary fibrotic changes. There are bilateral groundglass attenuation infiltrates with mild associated bronchial wall thickening most marked involving the upper lobes. Elevation noted of the right hemidiaphragm. HEART AND PERICARDIUM: Within normal limits. AORTA: Normal caliber aorta. ADENOPATHY/MEDIASTINUM: None. LIMITED VIEWS OF THE ABDOMEN: Cholelithiasis. OSSEOUS STRUCTURES: No acute osseous abnormality.No suspicious lesions. OVERLYING SOFT TISSUES: Unremarkable. THYROID: The thyroid is unremarkable. IMPRESSION: Mild bilateral bronchopneumonia 12/16/24: Patient had an overnight oximetry on 2 L with recording duration 6 hours and 29 minutes. Average saturation 94%. Low saturation 88%. Time with saturation less than or equal to 88% was 0 minutes. Oxygen desaturation index 1.5. 12/15/24: Patient had an overnight oximetry on room air with recording duration o f 7 hours and 22 minutes. Average saturation 89%. Low saturation 81%. Time with saturation less than or equal to 88% was 153 minutes. Oxygen desaturation index 6.2. 12/15/24: Echo Summary 1. Definity contrast administered improved wall motion interpretation. 2. Left ventricular chamber dimension is normal. 3. Left ventricular systolic function is normal, estimated at 65-70. 4. There is mild concentric increased left ventricular wall thickness. 5. The left ventricular diastolic function is grade I diastolic dysfunction. 6. E/e' 11 is mildly elevated. 7. Dilated inferior vena cava with >50% collapse upon inspiration consistent with elevated right atrial pressure, 10 mmHg. Left Ventricle E/e' 11 is mildly elevated. Left ventricular chamber dimension is normal. Left ventricular systolic function is normal, estimated at 65-70. There is mild concentric increased left ventricular wall thickness. The left ventricular diastolic function is grade I diastolic dysfunction. Definity contrast administered improved wall motion interpretation. Right Ventricle Right ventricular chamber dimension is not well visualized. Left Atria Left atrial chamber dimension is normal. Right Atria Right atrial chamber dimension is normal. DATE: 12/12/2024 18:37 EXAMINATION: CTA chest PE protocol INDICATION: hypoxia, tachy, recent hospitalization COMPARISON: None. FINDINGS: Lung parenchyma and airways: Considerable motion artifact. Calcified right lower lobe granuloma. Subsegmental areas of peribronchovascular consolidation and groundglass in the bilateral upper lobes. Pleura: Unremarkable. Thoracic inlet, axillae and chest wall: Unremarkable. Thoracic aorta: No significant dilation. No dissection. Minimal arch calcification. Mediastinum: Dilated central pulmonary arteries. Calcified nodes. Heart and pericardium: Normal. Coronary artery calcifications: Absent. Upper abdomen: Cholelithiasis, without inflammatory change. Small hiatal hernia. Mild bilateral renal cortical thinning and scarring. Bones: No acute osseous finding. Pulmonary arteries: Study quality: Significant motion artifact, beam hardening, and quantum mottle limits this study. Nondiagnostic imaging of the subsegmental pulmonary arteries. No central or definite segmental pulmonary emboli detected. IMPRESSION: Limited examination. No central embolus. No definite segmental embolus noting that evaluation is somewhat limited. Nondiagnostic imaging of the subsegmental pulmonary arteries. Upper lobe opacities may represent edema or infection. Review of Systems Constitutional: Constitutional: Reports no additional constitutional complaints Eyes: Eyes: Reports no additional eye complaints ENT: Reports system reviewed and no additional complaints, except as documented Cardiovascular: Cardiovascular: Reports no additional cardiovascular complaints Respiratory: Respiratory: Reports no additional respiratory complaints Gastrointestinal: Gastrointestinal: Reports no additional gastrointestinal complaints Musculoskeletal: Musculoskeletal: Reports no additional musculoskeletal complaints Neurologic: Reports system reviewed and no additional complaints, except as documented Psychiatric: Psychiatric: Reports no additional psychiatric complaints Endocrine: Endocrine: Reports no additional endocrine complaints Hematologic/Lymphatic: Hematologic/Lymphatic: Reports no additional hematologic/lymphatic complaints Allergic/Immunologic: Allergic/Immunologic: Reports no additional allergic/immunologic complaints Exam Const: General: cooperative and comfortable Orientation/consciousness: oriented to person, oriented to place and oriented to time Other: Morbidly obese HENMT: Head: normal to inspection Ears: hearing grossly normal bilaterally Eyes: General: appearance normal, both eyes and all related structures Neck: Neck: normal visual inspection Chest: Chest palpation & inspection: normal inspection of the chest Resp: Effort & Inspection: normal respiratory effort and able to speak in complete sentences Auscultation: no crackles, no rales, no rhonchi, wheezes and lung sounds not diminished Other: No wheezes on exam today. Cardio: Jugular venous distension: no JVD Other: Tachycardic GI: Inspection: normal to inspection Skin: General skin exam: normal color Neuro: General: oriented to person, oriented to place and oriented to time Extrem: General: normal to inspection Other: no edema Psych: Appearance: grossly normal Objective Data Vital Signs Vital Signs: Vital Signs - 24 hr 09/27/25 11:48 02/05/25 15:42 02/05/25 15:47 Temperature 36.4 C L Pulse Rate 104 H 93 94 Respiratory Rate 20 20 20 Blood Pressure 121/59 L Pulse Oximetry 90 Oxygen Delivery 02/05/25 16:00 02/05/25 20:30 02/05/25 20:30 Temperature 36.0 C L Pulse Rate 95 80 Respiratory Rate 20 18 Blood Pressure 123/64 Pulse Oximetry 93 92 Oxygen Delivery Room Air 02/05/25 21:20 02/05/25 22:34 02/06/25 00:00 Temperature 36.4 C 36.4 C Pulse Rate 87 84 Respiratory Rate 18 18 Blood Pressure 127/73 112/81 Pulse Oximetry 91 97 Oxygen Delivery Room Air 02/06/25 02:25 02/06/25 02:32 02/06/25 04:00 Temperature 36.4 C L Pulse Rate 82 86 73 Respiratory Rate 18 18 18 Blood Pressure 107/75 Pulse Oximetry 95 Oxygen Delivery 02/06/25 08:00 02/06/25 08:04 02/06/25 08:05 Temperature 36.3 C L Pulse Rate 79 85 85 Respiratory Rate 18 16 16 Blood Pressure 129/71 Pulse Oximetry 98 92 Oxygen Delivery Room Air 02/06/25 08:16 Temperature Pulse Rate 87 Respiratory Rate 16 Blood Pressure Pulse Oximetry Oxygen Delivery Intake/Output Intake/Output: Intake & Output 02/03/25 02/04/25 02/05/25 02/06/25 23:59 23:59 23:59 23:59 Intake Total 490 2640 1000 Balance 490 2640 1000 Meds/Results Medications: Active Medications Generic Name Dose Route Start Last Admin Trade Name Freq PRN Reason Stop Dose Admin Acetaminophen 650 mg 02/04/25 15:11 02/05/25 09:50 Acetaminophen 325 Mg Tablet PO 650 mg Q4H PRN Administration Mild Pain (1-3) or Fever Hydrocodone Bitart/Acetaminophen 1 tab 02/04/25 15:11 Hydrocodone/Acetaminophen (*Crx) 5-325 Mg Tablet PO Q4H PRN Pain Rated 4-6 Budesonide 0.5 mg 02/05/25 10:10 02/06/25 08:00 Budesonide Respule Neb 0.5 Mg/2 Ml Amp INHALATION 0.5 mg Q12HRT NIURKA Administration Docusate Sodium 100 mg 02/04/25 16:35 Docusate Sodium 100 Mg Capsule PO BID PRN Constipation Enoxaparin Sodium 40 mg 02/05/25 09:00 02/06/25 09:35 Enoxaparin 40 Mg/0.4 Ml Syringe SUB-Q 40 mg DAILY NIURKA Administration Guaifenesin 1,200 mg 02/04/25 21:00 02/06/25 09:35 Guaifenesin 12 Hr 600 Mg Tabcr PO 1,200 mg Q12HR NUIRKA Administration Ceftriaxone Sodium 1 gm/ 50 mls @ 100 mls/hr 02/05/25 16:00 02/05/25 16:59 Sodium Chloride IVPB Infused Q24H NIURKA Infusion Azithromycin 500 mg/ Sodium 250 mls @ 250 mls/hr 02/05/25 17:00 02/05/25 18:12 Chloride IVPB 02/08/25 17:59 Infused Q24H NIURKA Infusion Sodium Chloride 1,000 mls @ 125 mls/hr 02/04/25 16:50 02/06/25 05:23 Normal Saline Iv IV CONT 125 mls/hr .Q8H NIURKA Administration Ipratropium [place] 0.5 mg 02/05/25 14:00 02/06/25 08:00 Ipratropium Br 0.02% Inh Soln 0.5 Mg/2.5 Ml Vial INHALATION 0.5 mg Q6HRT NIURKA Administration Lisinopril 10 mg 02/04/25 21:00 02/05/25 21:22 Lisinopril 10 Mg Tablet PO 10 mg HS NIURKA Administration Morphine Sulfate 2 mg 02/04/25 15:17 Morphine Sulfate (*Crx) 4 Mg/Ml Inj IV PUSH Q2H PRN Pain Rated 7-10 Promethazine HCl 12.5 mg 02/04/25 15:11 Promethazine Hcl 25 Mg/Ml Ampul IV PUSH Q6H PRN Nausea Radiology Results: ITS Impressions Chest X-Ray 02/04/25 14:20 IMPRESSION: 1. Apparent left basilar opacity as before, probably soft tissue artifact but atelectasis and/or airspace disease not excluded. Chest CT 02/05/25 14:16 IMPRESSION: Mild bilateral bronchopneumonia Labs Labs: Laboratory Results - last 24 hr 02/05/25 02/06/25 10:20 06:15 WBC 9.6 RBC 4.78 Hgb 12.6 Hct 43.0 MCV 90.0 MCH 26.4 MCHC 29.3 L RDW 15.1 H Plt Count 301 MPV 9.5 Sodium 138 Potassium 4.1 Chloride 105 Carbon Dioxide 31 H Anion Gap 2 L BUN 19 H Creatinine 0.62 L Estim Creat Clear Calc Not Reportable Estimated GFR > 60 Glucose 92 Calcium 7.8 L Nasal MRSA (PCR) Not detected
--- NOTE | 2025-02-06 15:27 | P.PNIM_ITS ---
Progress Note: A&P Assessment and Plan (1) Tachycardia: Code(s): R00.0 - Tachycardia, unspecified Status: Acute Assessment and Plan: Likely due to acute infection IVF Telemetry (2) Community acquired pneumonia: Qualifiers: Laterality: unspecified laterality Qualified Code(s): J18.9 - Pneumonia, unspecified organism Code(s): J18.9 - Pneumonia, unspecified organism Status: Acute Assessment and Plan: Pulmonary IV Rocephin and azithromycin Blood cultures pending DuoNebs Guaifenesin pulm was consulted. Dr Muhammad's note reviewed: Plan: Continue ceftriaxone and azithromycin, day 2 antibiotics. Continue guaifenesin 1200 mg p.o. b.i.d.. I will send a MRSA nasal swab, respiratory pathogen panel, urine Legionella antigen, urine pneumococcal antigen and serum IgM for mycoplasma. I will obtain a CT scan of the chest to assess for infiltrates. Of note, patient has extensive sinusitis and will require surgery per ENT. Currently she says her sinuses are at her baseline. in the past she has declined Flonase, Astelin, ipratropium and does not wish for any nasal medicines at this time. ENT had ordered streptococcal pneumonia IgG levels for 23 sero types and all but 2 are low. As an initial workup, I will send immunoglobulin G, M, A and E levels. I will send immunoglobulin G sub classes. with ventrally need full immunodeficiency workup by Allergy and immunology. ----- 02/06 day 3 on antibiotics, micinex - improving (3) Acute hypoxemic respiratory failure: Code(s): J96.01 - Acute respiratory failure with hypoxia Status: Acute Assessment and Plan: Normally wears 2 L at night Wean oxygen as able to baseline (4) Hypertension: Qualifiers: Hypertension type: primary hypertension Qualified Code(s): I10 - Essential (primary) hypertension Code(s): I10 - Essential (primary) hypertension Status: Chronic Assessment and Plan: Continue home lisinopril reviewed and stable Subjective Date/time seen: 02/06/25 15:27 Interval history: 64-year-old female on on 2 L of oxygen at night for deviated septum, hypertension presents the hospital with shortness of breath. Patient states that she was seeing ENT for her deviated septum and was told that she had a bacteremia with Klebsiella. Patient states that she was diagnosed with pneumonia back in October and has had a persistent cough since then. Patient states that she has been sick for the last several months. She states that it started with a fall where she broke her nose. She has been seeing ENT and has recommended surgery for deviated septum. She states that for the last several nights she has been sleeping sitting up in his been unable to lay flat. She states that she has no history of lung disease, she has never smoked, asthma or COPD. Patient denies fevers chills nausea or vomiting. Lab work in the ED shows leukocytosis at 12.4, hemoglobin of 15.1, sodium of 134, chloride of 95, carbon dioxide 31, creatinine of 0.60, glucose of 139, x- ray shows left basilar opacity possible pneumonia. EKG shows sinus tachycardia 121. Patient was given azithromycin and Rocephin in the emergency room. 02/05 pt is seen and examined. PUlm was consulted Dr Muhammad saw pt. off oxygen now-still reports sob but feeling a bit better. no n/v/d 02/06 pt is doing well today. no sob, off oxygen on ceftriaxone/azithro, day 3 Review of Systems Review of Systems: 12 systems were reviewed and are negativ e except for as per HPI. All systems reviewed & are unremarkable except as noted in HPI and below Exam Narrative: General: well appearing, appears stated age. Obese HEENT: normocephalic, atraumatic. Mucous membranes moist. EOMI, PERRLA, bilateral sclera anicteric, no conjunctival injection. Neck supple without JVD, lymphadenopathy, or bruit. Respiratory: Diminished bilateral expiatory wheezes Cardiovascular: Regular rate and rhythm, normal S1-S2 upon ascultation. No murmurs, rubs, or clicks. PMI is nondisplaced, capillary refill less than 3 second. Abdomen: Soft, round, no pulsatile masses, nondistended and nontender. No rebound, no guarding. No CVA tenderness, no hepatosplenomegaly. Bowel sounds present to all four quadrants. Extremities: No cyanosis, clubbing, or edema present. Pulses are palpable 2/2. Active ROM to all four extremities. Neuro: Alert and orientated x 4. PERRLA. Cranial nerves 2-12 intact without focal deficit. Skin: Warm, dry, and intact, without rash, erythema, or lesion. Psych: pleasant, cooperative, normal speech, normal affect, no hallucinations, no dysarthia Const: General: comfortable Objective Data Vital Signs Vital Signs: Vital Signs - 24 hr 02/05/25 15:42 02/05/25 15:47 02/05/25 16:00 Temperature 96.8 F L Pulse Rate 93 94 95 Respiratory Rate 20 20 20 Blood Pressure 123/64 Pulse Oximetry 93 Oxygen Delivery 02/05/25 20:30 02/05/25 20:30 02/05/25 21:20 Temperature Pulse Rate 80 Respiratory Rate 18 Blood Pressure Pulse Oximetry 92 Oxygen Delivery Room Air Room Air 02/05/25 22:34 02/06/25 00:00 02/06/25 02:25 Temperature 97.6 F 97.6 F Pulse Rate 87 84 82 Respiratory Rate 18 18 18 Blood Pressure 127/73 112/81 Pulse Oximetry 91 97 Oxygen Delivery 02/06/25 02:32 02/06/25 04:00 02/06/25 08:00 Temperature 97.5 F L 97.3 F L Pulse Rate 86 73 79 Respiratory Rate 18 18 18 Blood Pressure 107/75 129/71 Pulse Oximetry 95 98 Oxygen Delivery 02/06/25 08:04 02/06/25 08:05 02/06/25 08:16 Temperature Pulse Rate 85 85 87 Respiratory Rate 16 16 16 Blood Pressure Pulse Oximetry 92 Oxygen Delivery Room Air 02/06/25 12:00 02/06/25 14:42 02/06/25 14:53 Temperature 97.2 F L Pulse Rate 87 91 92 Respiratory Rate 18 16 14 Blood Pressure 140/74 Pulse Oximetry 96 Oxygen Delivery Intake/Output Intake/Output: Intake & Output 02/03/25 02/04/25 02/05/25 02/06/25 23:59 23:59 23:59 23:59 Intake Total 490 2640 1120 Balance 490 2640 1120 Meds/Results Medications: Active Medications Generic Name Dose Route Start Last Admin Trade Name Freq PRN Reason Stop Dose Admin Acetaminophen 650 mg 02/04/25 15:11 02/05/25 09:50 Acetaminophen 325 Mg Tablet PO 650 mg Q4H PRN Administration Mild Pain (1-3) or Fever Hydrocodone Bitart/Acetaminophen 1 tab 02/04/25 15:11 Hydrocodone/Acetaminophen (*Crx) 5-325 Mg Tablet PO Q4H PRN Pain Rated 4-6 Budesonide 0.5 mg 02/05/25 10:10 02/06/25 08:00 Budesonide Respule Neb 0.5 Mg/2 Ml Amp INHALATION 0.5 mg Q12HRT NIURKA Administration Docusate Sodium 100 mg 02/04/25 16:35 Docusate Sodium 100 Mg Capsule PO BID PRN Constipation Enoxaparin Sodium 40 mg 02/05/25 09:00 02/06/25 09:35 Enoxaparin 40 Mg/0.4 Ml Syringe SUB-Q 40 mg DAILY NIURKA Administration Guaifenesin 1,200 mg 02/04/25 21:00 02/06/25 09:35 Guaifenesin 12 Hr 600 Mg Tabcr PO 1,200 mg Q12HR NIURKA Administration Ceftriaxone Sodium 1 gm/ 50 mls @ 100 mls/hr 02/05/25 16:00 02/05/25 16:59 Sodium Chloride IVPB Infused Q24H NIURKA Infusion Azithromycin 500 mg/ Sodium 250 mls @ 250 mls/hr 02/05/25 17:00 02/05/25 18:12 Chloride IVPB 02/08/25 17:59 Infused Q24H NIURKA Infusion Sodium Chloride 1,000 mls @ 125 mls/hr 02/04/25 16:50 02/06/25 05:23 Normal Saline Iv IV CONT 125 mls/hr .Q8H NIURKA Administration Ipratropium [place]gett 0.5 mg 02/05/25 14:00 02/06/25 14:42 Ipratropium Br 0.02% Inh Soln 0.5 Mg/2.5 Ml Vial INHALATION 0.5 mg Q6HRT NIURKA Administration Lisinopril 10 mg 02/04/25 21:00 02/05/25 21:22 Lisinopril 10 Mg Tablet PO 10 mg HS NIURKA Administration Morphine Sulfate 2 mg 02/04/25 15:17 Morphine Sulfate (*Crx) 4 Mg/Ml Inj IV PUSH Q2H PRN Pain Rated 7-10 Promethazine HCl 12.5 mg 02/04/25 15:11 Promethazine Hcl 25 Mg/Ml Ampul IV PUSH Q6H PRN Nausea Radiology Results: ITS Impressions Chest X-Ray 02/04/25 14:20 IMPRESSION: 1. Apparent left basilar opacity as before, probably soft tissue artifact but atelectasis and/or airspace disease not excluded. Chest CT 02/05/25 14:16 IMPRESSION: Mild bilateral bronchopneumonia Labs Labs: Laboratory Results - last 24 hr 02/06/25 06:15 WBC 9.6 RBC 4.78 Hgb 12.6 Hct 43.0 MCV 90.0 MCH 26.4 MCHC 29.3 L RDW 15.1 H Plt Count 301 MPV 9.5 Sodium 138 Potassium 4.1 Chloride 105 Carbon Dioxide 31 H Anion Gap 2 L BUN 19 H Creatinine 0.62 L Estim Creat Clear Calc Not Reportable Estimated GFR > 60 Glucose 92 Calcium 7.8 L Quality VTE Prophylaxis VTE prophylaxis: mechanical ordered and pharmacologic ordered
[2025-02-06] MEDS: cefTRIAXone 1 GM in SODIUM CHLORIDE 0.9% IV 50 ML 100 ML IVPB (16:23)
[2025-02-06] MEDS: AZITHROMYCIN IV 500 MG in SODIUM CHLORIDE 0.9% IV 250 ML IVPB (17:18)
[2025-02-07] VITALS (7 sets, daily range): BP systolic 124–147; BP diastolic 67–72; PULSE 87–95; RESP 14–20; TEMP 35.9–36.2; O2SAT 92–98
[2025-02-07] MEDS: IPRATROPIUM BR 0.02% INH SOLN 0.5 MG/2.5 ML VIAL INHALATION ×2 (01:35→07:49)
[2025-02-07 07:07] LABS: Creatine Kinase 40 U/L (30-135)
[2025-02-07] MEDS: BUDESONIDE RESPULE NEB 0.5 MG/2 ML AMP INHALATION (07:49)
[2025-02-07] MEDS: guaiFENesin 12 HR 600 MG TABCR 1200 MG PO (08:17)
[2025-02-07] MEDS: ENOXAPARIN 40 MG/0.4 ML SYRINGE SUB-Q (08:17)
--- NOTE | 2025-02-07 09:57 | PM.PNPUL ---
Progress Note: A&P Assessment and Plan (1) Community acquired pneumonia: Qualifiers: Laterality: unspecified laterality Qualified Code(s): J18.9 - Pneumonia, unspecified organism Code(s): J18.9 - Pneumonia, unspecified organism Status: Acute Assessment and Plan: patient presents with feeling cold and clammy, worsening dyspnea on exertion, little bit of cough with no change in her phlegm, no change in her sinuses, leukocytosis 12.4 and chest x-ray with a left base infiltrate with no change from 12/12/2024. Her CRP is 4.7, procalcitonin 0.1. Blood cultures are pending. The patient may or may not have a pneumonia. 02/05/2025: The patient tells me she is doing better. She feels 50% back to her baseline. She is tired with no shortness of breath at rest and her dyspnea on exertion when she walks to the bathroom is improved. Her phlegm production is the same and her postnasal drip is the same. She is afebrile. Her white blood cell count is 9.7, creatinine is 0.61, BNP is 179, CRP is 4.7, procalcitonin is 0.1. her weight today is 114.9 kg. Plan: Continue ceftriaxone and azithromycin, day 2 antibiotics. Continue guaifenesin 1200 mg p.o. b.i.d.. I will send a MRSA nasal swab, respiratory pathogen panel, urine Legionella antigen, urine pneumococcal antigen and serum IgM for mycoplasma. I will obtain a CT scan of the chest to assess for infiltrates. Of note, patient has extensive sinusitis and will require surgery per ENT. Currently she says her sinuses are at her baseline. in the past she has declined Flonase, Astelin, ipratropium and does not wish for any nasal medicines at this time. ENT had ordered streptococcal pneumonia IgG levels for 23 sero types and all but 2 are low. As an initial workup, I will send immunoglobulin G, M, A and E levels. I will send immunoglobulin G sub classes. with ventrally need full immunodeficiency workup by Allergy and immunology. Of note, patient had expiratory wheezes in the emergency room and is currently being treated with DuoNebs and levalbuterol. Her heart rate was 115 today. Patient says she cannot tolerate inhalers as they aggravate her coughing. I will discontinue beta agonist and place her on nebulized ipratropium, and nebulized budesonide 500 mcg b.i.d.. Later in the day patient had a CT scan of the chest and compared with 12/12/2024 there was resolution of the prior left upper lobe infiltrate. There is a new anterior segment of the right upper lobe infiltrate and new mosaic attenuation bilateral upper lobes. 02/06/2025: Patient says she is better. She has no rest shortness of breath and she had no dyspnea on exertion walking to the bathroom. Her cough is decreased but she has green phlegm which is about the same. She has congestion in the nose and the lungs. The nebulized treatments are helping her. She is on room air with saturations 98%. She were 2 L nasal cannula at night. She is afebrile. White blood cell count 9.6, creatinine 0.62. COVID influenza and RSV RT PCR assay negative. Plan: Continue ceftriaxone and azithromycin, day 3 of antibiotics. Continue guaifenesin 1200 mg p.o. b.i.d.. MRSA nasal swab negative, respiratory pathogen panel, urine Legionella antigen, urine pneumococcal antigen and serum IgM for mycoplasma. Patient states she is tolerating the nebulized ipratropium and budesonide and will continue these for now. patient with areas of upper lobe mosaic attenuation on her CT scan of the chest and I will send serologies for connective tissue disorder. I will order a GALILEA screen that includes 11 different auto antibodies, an ANCA screen, a rheumatoid factor, anti CCP antibody, hypersensitivity pneumonitis panel, a CPK, an aldolase level, and myomarker 3 plus profile. 02/07/25: Patient says she continues to improve and feels much better. She has some sinus congestion and phlegm from the chest that has improved from green to now clear -yellow. She is walking to the bathroom with no shortness of breath. She is currently on room air with saturations 95%. She is afebrile. White blood cell count 9.6. Her weight today is 118.8 kg. She tells me she is ready to go home today. Patient tells me she is not interested in taking Flonase at this time because she has had nose bleeds in the past. Patient declines Astelin and ipratropium nasal spray at this time. Rheumatoid factor less than 12, CPK 40, remaining serologies For her mosaic attenuation are pending. She has difficulty taking multiple inhalers and I will treat her with nebulizers. she gets nervous, anxious, jittery and tachycardic with beta agonists and I will treat her with ipratropium and budesonide nebulizers for now. for low streptococcal pneumonia IgG levels, she tells me she has never been vaccinated to pneumococcal. Her IgG, IgA, IgM and IgE levels and IgG subclass pending. I will refer to Allergy immunology for additional workup. Plan: From a pulmonary perspective patient is ready to be discharged home on these pulmonary medicines: Levofloxacin 750 mg p.o. q.day x6 days Ipratropium nebulizer 0.5 mg q.i.d.. Budesonide 500 mcg nebulized b.i.d. Please arrange for patient to have a nebulizer as she has difficulty taking multiple inhalers.. Guaifenesin 1200 mg p.o. b.i.d. p.r.n. congestion Oxygen 2 L nasal cannula at night I will refer the patient to Allergy and immunology, Dr. Mayers, regarding her low pneumococcal IgG levels. Follow-up in the Pulmonary Clinic in 4 weeks. I informed our entertainment & media correspondent. Patient needs rotten teeth extracted. She will continue to avoid exposure to the cats. She no longer has house remodeling being performed. Discussed with Alicia Morales, will sign off, call with questions. (2) Acute hypoxemic respiratory failure: Code(s): J96.01 - Acute respiratory failure with hypoxia Status: Acute Assessment and Plan: Patient presented and required 4 L nasal cannula oxygen on 02/04/2025. 02/05/25: When I enter the room she was on 4 L nasal cannula saturations 96%. I decreased her to room air and her saturations were 92%. Plan: Goal saturation 90-94%, adjust oxygen accordingly. 02/06/25: Patient remains on room air with saturations 98%. 02/07/25: Patient on room air with saturations 95%. (3) Daytime hypersomnia: Code(s): G47.10 - Hypersomnia, unspecified Status: Acute Assessment and Plan: Patient is morbidly obese with a BMI of 53.0, she snores, no sleeping partner but has never been told she stops breathing in her sleep, she takes 1 nap a day. ABG on 3 L 7.40/46/69. TSH 4.92 on 10/22/2023. patient has nocturnal hypoxia on room air which was corrected with 2 L nasal cannula. 02/05/25: patient tells me that she has reluctantly been wearing 2 L oxygen at night. Plan: Continue 2 L nasal cannula at night. Patient was called about her outpatient split night sleep study but declined to schedule this and said she would call back in the future. she will need outpatient sleep study. 02/06/2025: Plan: Continue 2 L nasal cannula at night. Subjective Date/time seen: 02/07/25 09:57 Interval history: 02/05/2025: This is a new pulmonary consult for hypoxemic respiratory failure and pneumonia. I have seen this patient in consultation from her last admission 12/10/2024 through 12/16/2024 and in the office on 01/06/2025. 64-year-old with a history of hypertension, nasal polyps and obesity. Patient has a history of a fall with nose trauma in 2023 and since then has had nasal congestion and drainage.? Patient is a never smoker, no exposures secondhand smoke.? 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 occasionally she reacts when she is exposed to her cats at home with coughing and wheezing if the cats jump near her face. In 09/2024 she went [facility] with sinus congestion and drainage to the throat and was given doxycycline. Her nasal drainage got worse. 10/26/2024 through 10/29/2024. Admitted to [facility] with SOB, TOBIN, cough, wheezing, and fever. Treated with antibiotics and discharged on prednisone, Augmentin and azithromycin. She felt better when she was discharged and did well for the next 2 weeks. Approximately 11/12/24 she was having work done in her house and there was mold in the mendieta and the construction crew was painting. She developed a slight cough with some chest tightness an upper wheezing. She went to her PCP on 12/03/2024 and was prescribed Augmentin which she started on 12/06/2024. On 12/08/2024 she notices her breathing was worse, her phlegm increased and she developed welts and skin rashes. She stopped the Augmentin. 12/10/2024 through 12/16/2024: Admitted to [facility]. On 12/10/24 her breathing was worse. She had TOBIN but no rest SOB. On 12/12, She presented to the ED with blood pressure of 189/113, heart rate 118, room air saturations 89% and with 2 L her saturations were 100%. She was treated with DuoNeb and magnesium and given 30 mL/kilos. Her white blood cell count was 13.1, eosinophils 5.1%=668/uL, creatinine was 0.61, her BNP was 174. MRSA swab negative. COVID influenza RSV RT PCR assay negative. She had a CTA of the chest that showed no PE with minimal bilateral upper lobe infiltrates. She was started on vancomycin and cefepime. On 12/13 she was changed to Levaquin and prednisone was started. Patient was seen by ENT and she has a right deviation of her septum with crusting and obstruction on the right, recommended saline spray 3 spray each nostril 3 times a day for 10 days.? Her breathing improved.? She remained with sinus congestion and drainage.? Home O2 assessment demonstrated no oxygen at rest or with activity.? Overnight oximetry on room air with hypoxemia.? Overnight oximetry on 2 L with adequate oxygenation.? She was not convinced the DuoNebs were helping her and she has had trouble with inhalers at home and I discontinued the DuoNebs. Patient told me that guaifenesin makes her stomach hurt. She improved and was discharged on 12/16 on Levaquin 750 mg x5 days, last dose to be 12/21/2024, saline nasal spray 3 sprays each nostril 3 times a day per ENT.? Of note the patient had 2 cats and she says that when she is close to the cats or when they jump near her face she gets shortness of breath and wheezing. She has been skin tested negative for cat allergy. ??I recommended removal of the cats from the house.? If she could not do this, to take them out of the bedroom at night and obtain a HEPA filter for the bedroom.? 01/06/25: Today she tells me that she finished her Levaquin when she was discharged from the hospital. Overall the patient says she is doing a little bit better. Her activity level remains at room to room but she seems to be getting a little bit stronger. Her major complaint today is cough with postnasal drip. The patient tells me that she coughs 0-5 times an hour and when she coughs the last 1 minute. The cough is always provoked by postnasal drip. One she coughs up and expectorates the cough resolves. The cough is worse when she lays back and has sinus drainage down the right side of her nose and throat. The cough is improved when she sits up. At times within the patient has mucus in her chest she will have wheezing. When she coughs the mucus up the wheezing resolves. She does not expel any mucus out her nose it always drains backwards. Patient denies choking on her food. Patient has never had any nose bleeds or hemoptysis. Two of her physicians, PCP and inventory audit clerk, have previously recommended Flonase nasal spray but she has declined this in the past. She has taken [id number] antihistamines but these make her jittery and dizzy. Regarding contributing factors she is still having house remodeling That was associated with mold in the house, painting in the house and dust in the house but they are scheduled to finish in 5 days. the patient has an indoor cat. She has remove the cat from the bedroom at night. She has not brought HEPA filter. She is scheduled to follow-up with ENT on 01/21/2025. Patient states that she has broken teeth for at least 3 years and that these need to be removed but she has failed to follow-up on this. Currently she is on no Medicinal inhalers. she takes saline nasal spray 3 sprays each nostril 2 to 3 times a day. Patient does have some daytime hypersomnia, a sister in the room says she naps during the day, she does not feel refreshed when she wakes up. She denies morning headaches. Her weight today is 255 lb. Her Taylor score today is 2. She continues to wear 2 L nasal cannula at night and says that she thinks this may be helping her. Patient does not smoke and is not exposed to secondhand smoke. Patient does not exercise. Patient declines all vaccines. Plan was to treat her with Flonase, Astelin and ipratropium. Patient said she would try Flonase but not Astelin or ipratropium. She was to see a dentist to remove her right in teeth. She was to get a HEPA filter for her bedroom, avoid exposure to the cats, obtain PFTs, and a split night sleep study was ordered. Patient has not seen a dentist, she did not take the Flonase, she did get a HEPA filter for her room and has decreased exposure to her cats who are no longer in her bedroom. PFTs are scheduled she declined the split night sleep study and would call back for another appointment. Her patient saw ENT on 01/19/2025 who stated she is not using the Flonase as prescribed. CT scan of the sinuses showed moderate pansinusitis. She was prescribed Bactrim and recommended to have bilateral frontal sinus balloon dilation,bilateral , complete ethmoidectomy, bilateral maxillary antrostomy, bilateral inferior turbinate submucous resection , and septoplasty. This is not been scheduled. Currently over the last 2-4 days she has felt cold and clammy. She has had no rigors or diaphoresis. At baseline she has dyspnea on exertion room to room and this was worse. She has no rest shortness of breath. She had intermittent wheezes improved with albuterol. Her cough was a little more than usual with no change in her phlegm and no hemoptysis. Her sinuses are unchanged with her normal postnasal drip. 02/04/2025: Patient presented to the emergency room with a blood pressure 142/77, heart rate 123, 4 L nasal cannula saturation 95%. She had wheezing and rales. White blood cell count was 12.4 with eosinophils 2.2, creatinine 0.64. Chest x-ray showed left base infiltrate with no change from 12/12/2024. Patient was started on ceftriaxone, azithromycin, guaifenesin 1200 b.i.d. DuoNebs and levalbuterol. 02/05/2025: The patient tells me she is doing better. She feels 50% back to her baseline. She is tired with no shortness of breath at rest and her dyspnea on exertion when she walks to the bathroom is improved. Her phlegm production is the same and her postnasal drip is the same. She is afebrile. When I enter the room she was on 4 L nasal cannula saturations 96%. I decreased her to room air and her saturations were 92%. Her white blood cell count is 9.7, creatinine is 0.61, BNP is 179, CRP is 4.7, procalcitonin is 0.1. her weight today is 114.9 kg. Later in the day patient had a CT scan of the chest and compared with 12/12/2024 there was resolution of the prior left upper lobe infiltrate. There is a new anterior segment of the right upper lobe infiltrate and new mosaic attenuation bilateral upper lobes. 02/06/2025: Patient says she is better. She has no rest shortness of breath and she had no dyspnea on exertion walking to the bathroom. Her cough is decreased but she has green phlegm which is about the same. She has congestion in the nose and the lungs. The nebulized treatments are helping her. She is on room air with saturations 98%. She were 2 L nasal cannula at night. She is afebrile. White blood cell count 9.6, creatinine 0.62. COVID influenza and RSV RT PCR assay negative. 02/07/25: Patient says she continues to improve and feels much better. She has some sinus congestion and phlegm from the chest that has improved from green to now clear -yellow. She is walking to the bathroom with no shortness of breath. She is currently on room air with saturations 95%. She is afebrile. White blood cell count 9.6. Her weight today is 118.8 kg. She tells me she is ready to go home today. DATA: 02/05/25: EXAMINATION: CT diagnostic chest wo con, 02/05/2025 12:50 CDT HISTORY: pneumonia COMPARISON: No comparisons available. TECHNIQUE: CT scan of the chest was performed without IV contrast. One or more of the following dose reduction techniques were used: automated exposure control, adjustment of the mA and/or kV according to patient size, use of iterative reconstruction technique. FINDINGS: No significant coronary calcification is present ([id number]) LUNGS: No tracheomalacia. No bronchiectasis. Minimal emphysematous changes. Minimal pulmonary fibrotic changes. There are bilateral groundglass attenuation infiltrates with mild associated bronchial wall thickening most marked involving the upper lobes. Elevation noted of the right hemidiaphragm. HEART AND PERICARDIUM: Within normal limits. AORTA: Normal caliber aorta. ADENOPATHY/MEDIASTINUM: None. LIMITED VIEWS OF THE ABDOMEN: Cholelithiasis. OSSEOUS STRUCTURES: No acute osseous abnormality.No suspicious lesions. OVERLYING SOFT TISSUES: Unremarkable. THYROID: The thyroid is unremarkable. IMPRESSION: Mild bilateral bronchopneumonia 12/16/24: Patient had an overnight oximetry on 2 L with recording duration 6 hours and 29 minutes. Average saturation 94%. Low saturation 88%. Time with saturation less than or equal to 88% was 0 minutes. Oxygen desaturation index 1.5. 12/15/24: Patient had an overnight oximetry on room air with recording duration of 7 hours and 22 minutes. Average saturation 89%. Low saturation 81%. Time with saturation less than or equal to 88% was 153 minutes. Oxygen desaturation index 6.2. 12/15/24: Echo Summary 1. Definity contrast administered improved wall motion interpretation. 2. Left ventricular chamber dimension is normal. 3. Left ventricular systolic function is normal, estimated at 65-70. 4. There is mild concentric increased left ventricular wall thickness. 5. The left ventricular diastolic function is grade I diastolic dysfunction. 6. E/e' 11 is mildly elevated. 7. Dilated inferior vena cava with >50% collapse upon inspiration consistent with elevated right atrial pressure, 10 mmHg. Left Ventricle E/e' 11 is mildly elevated. Left ventricular chamber dimension is normal. Left ventricular systolic function is normal, estimated at 65-70. There is mild concentric increased left ventricular wall thickness. The left ventricular diastolic function is grade I diastolic dysfunction. Definity contrast administered improved wall motion interpretation. Right Ventricle Right ventricular chamber dimension is not well visualized. Left Atria Left atrial chamber dimension is normal. Right Atria Right atrial chamber dimension is normal. DATE: 12/12/2024 18:37 EXAMINATION: CTA chest PE protocol INDICATION: hypoxia, tachy, recent hospitalization COMPARISON: None. FINDINGS: Lung parenchyma and airways: Considerable motion artifact. Calcified right lower lobe granuloma. Subsegmental areas of peribronchovascular consolidation and groundglass in the bilateral upper lobes. Pleura: Unremarkable. Thoracic inlet, axillae and chest wall: Unremarkable. Thoracic aorta: No significant dilation. No dissection. Minimal arch calcification. Mediastinum: Dilated central pulmonary arteries. Calcified nodes. Heart and pericardium: Normal. Coronary artery calcifications: Absent. Upper abdomen: Cholelithiasis, without inflammatory change. Small hiatal hernia. Mild bilateral renal cortical thinning and scarring. Bones: No acute osseous finding. Pulmonary arteries: Study quality: Significant motion artifact, beam hardening, and quantum mottle limits this study. Nondiagnostic imaging of the subsegmental pulmonary arteries. No central or definite segmental pulmonary emboli detected. IMPRESSION: Limited examination. No central embolus. No definite segmental embolus noting that evaluation is somewhat limited. Nondiagnostic imaging of the subsegmental pulmonary arteries. Upper lobe opacities may represent edema or infection. Review of Systems Constitutional: Constitutional: Reports no additional constitutional complaints Eyes: Eyes: Reports no additional eye complaints ENT: Reports system reviewed and no additional complaints, except as documented Cardiovascular: Cardiovascular: Reports no additional cardiovascular complaints Respiratory: Respiratory: Reports no additional respiratory complaints Gastrointestinal: Gastrointestinal: Reports no additional gastrointestinal complaints Musculoskeletal: Musculoskeletal: Reports no additional musculoskeletal complaints Neurologic: Reports system reviewed and no additional complaints, except as documented Psychiatric: Psychiatric: Reports no additional psychiatric complaints Endocrine: Endocrine: Reports no additional endocrine complaints Hematologic/Lymphatic: Hematologic/Lymphatic: Reports no additional hematologic/lymphatic complaints Allergic/Immunologic: Allergic/Immunologic: Reports no additional allergic/immunologic complaints Exam Const: General: cooperative and comfortable Orientation/consciousness: oriented to person, oriented to place and oriented to time Other: Morbidly obese HENMT: Head: normal to inspection Ears: hearing grossly normal bilaterally Eyes: General: appearance normal, both eyes and all related structures Neck: Neck: normal visual inspection Chest: Chest palpation & inspection: normal inspection of the chest Resp: Effort & Inspection: normal respiratory effort and able to speak in complete sentences Auscultation: no crackles, no rales, no rhonchi, wheezes and lung sounds not diminished Other: No wheezes on exam today. Cardio: Jugular venous distension: no JVD Other: Tachycardic GI: Inspection: normal to inspection Skin: General skin exam: normal color Neuro: General: oriented to person, oriented to place and oriented to time Extrem: General: normal to inspection Other: no edema Psych: Appearance: grossly normal Objective Data Vital Signs Vital Signs: Vital Signs - 24 hr 02/06/25 12:00 02/06/25 14:42 02/06/25 14:53 Temperature 36.2 C L Pulse Rate 87 91 92 Respiratory Rate 18 16 14 Blood Pressure 140/74 Pulse Oximetry 96 Oxygen Delivery 02/06/25 16:00 02/06/25 20:34 02/06/25 20:50 Temperature 36.1 C L 36.3 C L Pulse Rate 90 98 90 Respiratory Rate 20 18 14 Blood Pressure 115/59 L 143/64 H Pulse Oximetry 96 92 Oxygen Delivery 02/06/25 21:00 02/06/25 21:21 02/07/25 01:05 Temperature Pulse Rate 90 95 Respiratory Rate 14 16 Blood Pressure 124/67 Pulse Oximetry 92 98 Oxygen Delivery Room Air 02/07/25 01:38 02/07/25 01:42 02/07/25 04:19 Temperature 36.2 C L Pulse Rate 90 90 88 Respiratory Rate 14 14 18 Blood Pressure 138/72 Pulse Oximetry 96 Oxygen Delivery 02/07/25 07:50 02/07/25 07:50 02/07/25 08:00 Temperature 35.9 C L Pulse Rate 87 87 95 Respiratory Rate 20 20 18 Blood Pressure 147/69 H Pulse Oximetry 92 94 Oxygen Delivery Room Air 02/07/25 08:00 02/07/25 08:02 Temperature Pulse Rate 88 Respiratory Rate 20 Blood Pressure Pulse Oximetry Oxygen Delivery Room Air Intake/Output Intake/Output: Intake & Output 02/04/25 02/05/25 02/06/25 02/07/25 23:59 23:59 23:59 23:59 Intake Total 490 2640 4610 550 Balance 490 2640 4610 550 Meds/Results Medications: Active Medications Generic Name Dose Route Start Last Admin Trade Name Freq PRN Reason Stop Dose Admin Acetaminophen 650 mg 02/04/25 15:11 02/05/25 09:50 Acetaminophen 325 Mg Tablet PO 650 mg Q4H PRN Administration Mild Pain (1-3) or Fever Hydrocodone Bitart/Acetaminophen 1 tab 02/04/25 15:11 Hydrocodone/Acetaminophen (*Crx) 5-325 Mg Tablet PO Q4H PRN Pain Rated 4-6 Budesonide 0.5 mg 02/05/25 10:10 02/07/25 07:49 Budesonide Respule Neb 0.5 Mg/2 Ml Amp INHALATION 0.5 mg Q12HRT NIURKA Administration Docusate Sodium 100 mg 02/04/25 16:35 Docusate Sodium 100 Mg Capsule PO BID PRN Constipation Enoxaparin Sodium 40 mg 02/05/25 09:00 02/07/25 08:17 Enoxaparin 40 Mg/0.4 Ml Syringe SUB-Q 40 mg DAILY NIURKA Administration Guaifenesin 1,200 mg 02/04/25 21:00 02/07/25 08:17 Guaifenesin 12 Hr 600 Mg Tabcr PO 1,200 mg Q12HR NIURKA Administration Ceftriaxone Sodium 1 gm/ 50 mls @ 100 mls/hr 02/05/25 16:00 02/06/25 17:40 Sodium Chloride IVPB Infused Q24H NIURKA Infusion Azithromycin 500 mg/ Sodium 250 mls @ 250 mls/hr 02/05/25 17:00 02/06/25 17:18 Chloride IVPB 02/08/25 17:59 250 mls/hr Q24H NIURKA Administration Ipratropium [place] 0.5 mg 02/05/25 14:00 02/07/25 07:49 Ipratropium Br 0.02% Inh Soln 0.5 Mg/2.5 Ml Vial INHALATION 0.5 mg Q6HRT NIURKA Administration Lisinopril 10 mg 02/04/25 21:00 02/06/25 21:21 Lisinopril 10 Mg Tablet PO 10 mg HS NIURKA Administration Morphine Sulfate 2 mg 02/04/25 15:17 Morphine Sulfate (*Crx) 4 Mg/Ml Inj IV PUSH Q2H PRN Pain Rated 7-10 Promethazine HCl 12.5 mg 02/04/25 15:11 Promethazine Hcl 25 Mg/Ml Ampul IV PUSH Q6H PRN Nausea Radiology Results: ITS Impressions Chest X-Ray 02/04/25 14:20 IMPRESSION: 1. Apparent left basilar opacity as before, probably soft tissue artifact but atelectasis and/or airspace disease not excluded. Chest CT 02/05/25 14:16 IMPRESSION: Mild bilateral bronchopneumonia Labs Labs: Laboratory Results - last 24 hr 02/07/25 06:01 Total Creatine Kinase 40 Rheumatoid Factor < 12.0 Rheumatoid Factor Scrn Cancelled Rheumatoid Factor Titer Cancelled Anti-Cycl Citrul Peptide Cancelled Anti-Proteinase 3 FEIA c/o 1.9 Cancelled Anti-Myeloperoxidase Cancelled
--- NOTE | 2025-02-07 12:17 | P.DS_ITS ---
DS: Admitting Diagnosis Discharge Date 02/07 Admitting Diagnosis sob DS: Discharge Diagnosis Discharge Diagnosis (1) Tachycardia: Code(s): R00.0 - Tachycardia, unspecified Status: Acute (2) Community acquired pneumonia: Qualifiers: Laterality: unspecified laterality Qualified Code(s): J18.9 - Pneumonia, unspecified organism Code(s): J18.9 - Pneumonia, unspecified organism Status: Acute (3) Acute hypoxemic respiratory failure: Code(s): J96.01 - Acute respiratory failure with hypoxia Status: Acute (4) Hypertension: Qualifiers: Hypertension type: primary hypertension Qualified Code(s): I10 - Essential (primary) hypertension Code(s): I10 - Essential (primary) hypertension Status: Chronic DS: Summary Hospital Course Hospital Course: 64-year-old female on on 2 L of oxygen at night for deviated septum, hypertension presents the hospital with shortness of breath. Patient states that she was seeing ENT for her deviated septum and was told that she had a bacteremia with Klebsiella. Patient states that she was diagnosed with pneumonia back in October and has had a persistent cough since then. Patient states that she has been sick for the last several months. She states that it started with a fall where she broke her nose. She has been seeing ENT and has recommended surgery for deviated septum. She states that for the last several nights she has been sleeping sitting up in his been unable to lay flat. She states that she has no history of lung disease, she has never smoked, asthma or COPD. Patient denies fevers chills nausea or vomiting. Lab work in the ED shows leukocytosis at 12.4, hemoglobin of 15.1, sodium of 134, chloride of 95, carbon dioxide 31, creatinine of 0.60, glucose of 139, x- ray shows left basilar opacity possible pneumonia. EKG shows sinus tachycardia 121. Patient was given azithromycin and Rocephin in the emergency room. She was slowly improving and we wer able to wean her off oxygen. Pulm was following: Patient not taking Flonase because she has had nose bleeds in the past. Patient declines Astelin and ipratropium nasal spray. Rheumatoid factor less than 12, CPK 40, remaining serologies She has difficulty taking multiple inhalers, so DR Muhammad will treat her with nebulizers- those are ordered. she gets nervous, anxious, jittery and tachycardic with beta agonists, so ipratropium and budesonide nebulizers for now. IgG, IgA, IgM and IgE levels and IgG subclass pending. DR Muhammad referred her to Allergy immunology for additional workup. From a pulmonary perspective patient is ready to be discharged home on these pulmonary medicines: Levofloxacin 750 mg p.o. q.day x6 days Ipratropium nebulizer 0.5 mg q.i.d.. Budesonide 500 mcg nebulized b.i.d. Please arrange for patient to have a nebulizer as she has difficulty taking multiple inhalers.. Guaifenesin 1200 mg p.o. b.i.d. p.r.n. congestion Oxygen 2 L nasal cannula at night. Pt was instructed to see a dentis for rotten tooth extraction, avoid cats. Status at Discharge Functional status at discharge: independent ambulation Overall status at discharge: patient is progressing back to baseline Time Spent with Patient Time attestation: Total time spent providing and/or coordinating discharge services: Time spent: Greater than 30 minutes Exam Narrative: General: well appearing, appears stated age. Obese HEENT: normocephalic, atraumatic. Mucous membranes moist. EOMI, PERRLA, bilateral sclera anicteric, no conjunctival injection. Neck supple without JVD, lymphadenopathy, or bruit. Respiratory: Diminished bilateral expiatory wheezes Cardiovascular: Regular rate and rhythm, normal S1-S2 upon ascultation. No murmurs, rubs, or clicks. PMI is nondisplaced, capillary refill less than 3 second. Abdomen: Soft, round, no pulsatile masses, nondistended and nontender. No rebound, no guarding. No CVA tenderness, no hepatosplenomegaly. Bowel sounds present to all four quadrants. Extremities: No cyanosis, clubbing, or edema present. Pulses are palpable 2/2. Active ROM to all four extremities. Neuro: Alert and orientated x 4. PERRLA. Cranial nerves 2-12 intact without focal deficit. Skin: Warm, dry, and intact, without rash, erythema, or lesion. Psych: pleasant, cooperative, normal speech, normal affect, no hallucinations, no dysarthia Const: General: comfortable DS: Data Data Completed and Pending Labs on day of discharge: Labs from last 24 hours 02/07/25 02/07/25 06:01 05:54 Total Creatine Kinase 40 Aldolase Pending [place] Serum IgG Ab Pending Rheumatoid Factor < 12.0 Rheumatoid Factor Scrn Cancelled Rheumatoid Factor Titer Cancelled Anti-Cycl Citrul Peptide Cancelled CCP IgG/IgA Ab Pending GALILEA Screen Pending c-ANCA Antibody Pending Anti-Proteinase 3 FEIA c/o 1.9 Cancelled Atypical p-ANCA Pending p-ANCA Antibody Pending Anti-Myeloperoxidase Cancelled HILDA-1 Antibody Pending EJ Antibody Pending Ku Antibody Pending OJ Antibody Pending Mi-2 Antibody Pending NXP-[address]-12 Antibody Pending MDA5 Ab Pending Myositis SAE1 Ab Pending Myositis TIF1-gamma Ab Pending SS-A/Ro 52 kDa Ab Pending A-PM Scleroderma 100 Ab Pending Anti-U1-DRAPERY HEAD FORMER Ab Pending U2-nRNP Antibody Pending U3-DRAPERY HEAD FORMER (Fibrillarin) Ab Pending Anti-SRP Antibody Pending T. sacchari IgG Ab Pending T. vulgaris IgG Ab Pending A. fumigatus IgG Ab Pending A. pullulans Aller IgG Pending M. faeni IgG Ab Pending Preliminary micro results at discharge 02/04/25 15:45 Blood Culture - Preliminary Blood 02/04/25 15:43 Blood Culture - Preliminary Blood Discharge Plan Discharge Attending physician on discharge: Sharonda Frances Consulting providers: Chris Muhammad Discharging Clinician: Alicia Morales Patient Disposition: Home Activity: may shower Diet: heart healthy Discharge Instructions: Please see the following regimen recommended per pulmonology: Levofloxacin 750 mg once a day for 6 days Ipratropium nebulizer 0.5 mg 4 times a day. Budesonide 500 mcg nebulized twice a day. Guaifenesin 1200 mg p.o. twice a day for congestion Oxygen 2 L nasal cannula at night. YOu were referred to Allergy and immunology, Dr. Mayers, regarding her low pneumococcal IgG levels. Follow-up in the Pulmonary Clinic in [address] Muhammad. Please see dentis and avoid exposure to cats. Patient Instructions: Antibiotic Form Patient Language: Sinhala Stand Alone Forms: General Discharge Information Follow-up/Referrals: Bhargavi Gonzales MD [Primary Care Provider, Family Practice] - 2 Weeks Chris Muhammad MD [Physician, Pulmonology] - 4 Weeks Discharge Medications: New (DME) nebulizer and compressor Device See Rx Instructions .Route Qty: 1 0RF Rx Instructions: As directed ipratropium bromide 0.02 % Solution 0.5 mg inhalation Q6HRT Qty: 75 0RF budesonide [Pulmicort] 0.5 mg/2 mL Suspension For Nebulization 0.5 mg inhalation Q12HRT Qty: 60 0RF guaifenesin [Mucus Relief ER] 600 mg Tablet Extended Release 12hr 1,200 mg PO Q12HR Qty: 60 0RF levofloxacin 750 mg tablet 750 mg PO DAILY Qty: 6 0RF Continued lisinopril 20 mg tablet 10 mg PO HS Date of admission: 02/04/25 15:55 Primary Care Provider: Bhargavi Gonzales Admitting Provider: Asad Blanco Attending physician on admission: Asad Blanco Condition: Stable Quality VTE Prophylaxis VTE prophylaxis: mechanical ordered and pharmacologic ordered Hospitalist MIPS Heart Failure (Exclusion) Patient has history of Heart Transplant or Left Ventricular Assistive Device?: No IF YES, STOP HERE Heart Failure (Qualifier) Patient has current or prior documentation of LVEF less than or equal to 40%, or mod/servere depressed LVSF?: No IF NO, STOP HERE
[2025-02-08 12:08] LABS: Anti-CCP Ab, IgG/IgA 17 units (0-19)
[2025-02-09 14:08] LABS: ANA by IFA Rfx Titer/Pattern Positive (.); ANA by IFA Rfx YES YES
== END 2025-02-07 13:54 | disposition home or self-care (01) | DRG 194 ==
LOC: ANHED 12:11 → ANH3MEDSUR 15:49
PROVIDERS: Emergency Medicine; Internal Medicine Pulmonary Disease; Nurse Practitioner Gerontology; Admitting Provider General Practice; Emergency Provider Emergency Medicine; PCP Family Medicine; Visit Provider Nurse Practitioner
DX: J18.9 Pneumonia, unspecified organism (principal); Z68.43 Body mass index [BMI] 50.0-59.9, adult; R09.02 Hypoxemia; I10 Essential (primary) hypertension; E66.01 Morbid (severe) obesity due to excess calories; J34.2 Deviated nasal septum; R00.0 Tachycardia, unspecified; Z90.710 Acquired absence of both cervix and uterus; Z90.49 Acquired absence of other specified parts of digestive tract; Z99.81 Dependence on supplemental oxygen
CPT/HCPCS: 36415; 71046; 71250; 80048; 80053; 82085; 82550; 83605; 83880; 84145; 85025; 85027; 86037; 86038; 86140; 86200; 86331; 86364; 86430; 86606; 86609; 86671; 86738; 87040; 87449; 87637; 87641; 93005; 94640; 99285; A9270; G0378; J0456; J0696; J1650; J7030; J7050

== ENCOUNTER 2025-03-21 12:37 | Outpatient (CLI) | payer MEDICARE, SELFPAY ==
--- OUTSIDE RECORDS SUMMARY | 2025-03-21 12:54 | XMS_ITS | Encounter Summary ---
Author Organization [facility] Healthcare Address [address] [place] [address] Care Team Providers Care Claim Investigator Name Role Phone Magali Jon NP Primary Care Provider Reason for Visit * Reason Onset Date Comments Respiratory Distress 02/04/2025 Encounter Details Date Type Department Care Team (Late st Contact Info) Description 02/04/2025 Nurse Triage [facility] Primary Care at [address] [place] [address] Magali Jon NP [address] [place] [address] [address] [place] [address] Social History Tobacco Use Types Packs/Day Years [...] on file 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 Does message need to be routed? Yes-Action Needed * Telephone Encounter - Angle Soto MA - 02/10/2025 8:37 AM CDT LVM to call the office to see if she is following up with Pulmonology * Telephone Encounter - Angle Soto MA - 02/08/2025 3:04 PM CDT Left detailed message for Patient to call the office * Telephone Encounter - Angle Soto MA - 02/04/2025 4:17 PM CDT FYI * Telephone Encounter - Trixie Haynes RN - 02/04/2025 9:53 AM CDT Reason for Conversation Respiratory Distress Background Patient calling with audible wheezing, speak in short phrases. Currently on 2L of O2 which she normally uses at night. Using Albuterol inhaler without relief. Has occasional cough. Unable to take deep breath. Denies fever. Has had recent treatment for pneumonia. Denies chest pain. Disposition Call EMS 911 Now, See More Appropriate Protocol Patient is calling 911 for difficulty breathing with audible wheezing. Reason for Disposition Wheezing (high pitched whistling sound) and previous asthma attacks or use of asthma medicines SEVERE asthma attack (e.g., struggling for each breath, speaks in single words, loud wheezes, pulse>120) (RED Zone) Protocols Used Asthma Fzyfzf-Zdrfy-CH Breathing Uiabacubyl-Qsodb-RT FYI: patient calling 911 for respiratory distress and audible wheezing. * Telephone Encounter - Trixie Haynes RN - 02/04/2025 9:35 AM CDT Regarding: sob, wheezing, weakness ----- Message from August sent at 02/04/2025 9:28 AM CDT ----- Symptom Based Call Chief Complaint(s): sob, wheezing, weakness Duration: a month. Today is really bad What type of symptom(s) is the patient experiencing? Red Flag. Is the patient concerned they are experiencing a medical emergency requiring an ambulance? Yes Has the patient agreed to call 911? No Additional Comments: Zenaida called today to cancel her appointment for her annual. You can hear hear wheezing and having SOB. She states it is very hard for her to breath and to weak to even get up. I was concerned and asked her if it would be ok for me to send a message to RN for further evaluation.She agreed. She states she has been trying to use her albuterol but that is not helping and seems to make it worse. She has home O2 but was told to only use it at night, so she is not using it now even though she can't breath very well. SURGERY CONSULTANT was concerned about pt well being and sending over for RN to check on pt. She was more concerned that she could not make her appt today. Does message need to be routed? Yes-Action Needed documented in this encounter Plan of Treatment Not on file documented as of this encounter Visit Diagnoses Not on filedocumented in this encounter Care Teams Claim Investigator Relationship Specialty Start Date End Date Magali Jon NP [address] [facility] [address] [place] [address] PCP - General Nurse Practitioner 09/21/24 documented as of this encounter
--- OUTSIDE RECORDS SUMMARY | 2025-03-21 12:54 | XMS_ITS | Clinical Summary ---
Author Organization [facility] Address [address] [place] [id number] Care Team Providers Care Enamel Dipper Name Role Phone DanayMagali schwab JOSÉ Primary Care Provider Allergies Active Allergy Reactions Criticality Noted Date Comments Amoxicillin Hives High 12/12/2024 Clavulanic Acid Hives High 12/12/2024 Penicillins Unknown 04/23/2020 Hives and welps, Medications sodium chloride 3 % mist Administer 1 spray into affected nostril(s) 3 (three) times a day Active lisinopriL (PRINIVIL,ZESTRI L) 10 mg tabletIndication s:Benign hypertension Take 1 tablet (10 mg total) by mouth daily 30 tablet 1 5 Active albuterol HFA (PROVENTIL HFA,VENTOLIN HFA,PROAIR HFA) 90 mcg/actuation inhaler Inhale 2 puffs every 6 (six) hours as needed for wheezing Active budesonide-formo teroL (SYMBICORT) 160-4.5 mcg/actuation inhaler Inhale 2 puffs 2 (two) times a day Rinse mouth with water after use. Do not swallow. Active guaiFENesin ER (MUCINEX) 600 mg 12 hr tablet Take 2 tablets (1,200 mg total) by mouth 5 Active triamcinolone (KENALOG) 0.1 % ointmentIndicati ons:Dermatitis Apply topically 2 (two) times a day for 10 days 30 g 10/08/202 5 Active cephalexin (KEFLEX) 500 mg capsuleIndicatio ns:Cellulitis of abdominal wall Take 1 capsule (500 mg total) by mouth 4 (four) times a day for 7 days 28 capsule 5 02/24/20 Active Problems Problem Noted Date Diagnosed Date Acute hypoxemic respiratory failure 02/02/2025 Chronic hypercapnia 02/02/2025 Conjunctival injection 02/02/2025 Hypoxemia requiring supplemental oxygen 02/03/20 Polycythemia 02/02/2025 Sepsis 02/02/2025 Tachycardia 02/02/2025 Community acquired pneumonia 02/02/2025 Chronic sinusitis 12/03/2024 Acquired deviated nasal septum [...] for wheezing. I discussed patient seeing an disk operator, but her sister would like to just do the labs instead of having to go to a specialist visit. 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 Patient is aware of long-term risks posed by chronic hydronephrosis and hydroureter. Check metabolic panel next week for renal function. Leukocytosis 05/09/2020 Assessment & Plan (05/09/2020 5:00 PM TUBE DRAWING SUPERVISOR): Repeat CBC next week to ensure normalization [...] prevention, proper nutrition, and suggested joining [facility] to accomplish most of these [...] loss. Assessment & Plan (05/09/2020 5:00 PM TUBE DRAWING SUPERVISOR): Remains well controlled at home and there [...] fall prevention, proper nutrition, and suggested joining [facility] to accomplish most of these goals. [...] Encounters Date Type Department Care Team Description 02/16/2025 2:15 PM CDT Office Visit [facility] at [address] [address] Ramin Sargent NP Cellulitis of abdominal wall (Primary Dx); Elevated blood pressure reading in office with diagnosis of hypertension; Dermatitis 02/04/2025 10:44 AM CDT - 02/04/2025 11:59 PM CDT Hospital Encounter [facility] Emergency, Room R Discharge Disposition: Discharge to home or self care 02/04/2025 Nurse Triage [facility] at [address] [address] Magali Jon NP 12/24/2024 11:00 AM CDT Office Visit [facility] at [address] [address] Magali Jon NP Pneumonia of both lungs due to infectious organism, unspecified part of lung (Primary Dx); Abnormal thyroid function test; Chronic maxillary sinusitis; Acquired deviated nasal septum; Class 3 severe obesity due to excess calories with serious comorbidity and body mass index (BMI) of 50.0 to 59.9 in adult 12/20/2024 Telephone [facility] at [address] [address] Magali Jon NP BETHANY Questions from Last 3 Months Immunizations Immunization Administration [...] Mother Diabetes mellit us; Heart attack Mother [place]; Hypertension Mother Hypertension; Relation Name Status Comments [...] on file 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 Gender Identity Not on file Sexual Orientation Not on file Last Filed Vital Signs Vital Sign Reading Time Taken Comments Blood Pressure 162/100 02/16/2025 2:27 PM CDT Pulse 96 02/16/2025 2:14 PM CDT Temperature 36.7 C (98.1 F) 02/16/2025 2:14 PM CDT Respiratory Rate 20 02/16/2025 2:14 PM CDT Oxygen Saturation 96% 02/16/2025 2:14 PM CDT Inhaled Oxygen Concentration - - Weight 116.6 kg (257 lb 1.6 oz) 02/16/2025 2:14 PM CDT Height 149.9 cm (4' 11.02) 02/16/2025 2:14 PM C DT Body Mass Index 51.9 02/16/2025 2:14 PM CDT Plan of Treatment Health Maintenance Due [...] Name Priority Date/Time Associated Diagnosis Comments HEPATITIS C ANTIBODY Routine 12/03/2024 11:44 AM [...] last revised on 2019. Testing performed by: [facility], [address] [place] [address]., [id number] Blood 12/03/2024 11:4 4 AM CDT 12/03/2024 4:36 PM CDT Magali Jon NP LAB MICROBIOLOGY - GENE RAL ORDERABLES Final Result Performing Organization Address City/[facility]/ZIP Co de Phone Number [facility] [id number] [place] [address] [place] [address] * Stool DNA - Cologuard (07/14/2019) Scribed Stool DNA - Cologuard Negative [facility] Stool 07/14/2019 us Sanjiv Conte MD LAB BODY FLUIDS AND STOOLS O RDERABLES Final Result Performing Organization Address City/[facility]/ZIP Co de Phone Number [employer] * Diagnostic Mammogram Bilateral W [place] (08/06/2016 7:29 PM CDT) Anatomical Region Laterality Modality Breast Bilateral Mammography 08/06/2016 7:29 PM CDT Narrative 08/06/2016 7:29 PM CDT SCREENING MAMM W [place]IL[place] BI Acc#: [id number] DATE OF EXAM: Aug 06 2016 CLINICAL HISTORY: Screening. Performed by: [facility] RESULT: Craniocaudal and mediolateral oblique views [...] on: Aug 06 2016 2:29P Transcribed by: [facility] On: Aug 06 2016 4:05P Approved Electronically by: CARMELO Lovett, DR HURT on: Aug 06 2016 7:55P Attending: DR SANJIV CONTE Requesting: DR SANJIV CONTE Requesting Attending Attending ID: [id number] Requesting ID: [id number] Report To 1 ID: [id number] Report To 1 Name: DR SANJIV CONTE Report To 1 FAX: [phone] NextGen Order #: Procedure Note Miscellaneous, Notinfile / Provider, MD Richard - 10/02/2016 SCREENING MAMM W [place] BI Acc#: [id number] DATE OF EXAM: Aug 06 2016 CLINICAL HISTORY: Screening. Performed by: [facility] RESULT: Craniocaudal and mediolateral oblique views [...] Read on: Aug 06 20162:29P Transcribed by: [facility] On: Aug 06 2016 4:05P Approved Electronically by: CARMELO Lovett, DR HURT on: Aug 06 20167:55P Attending: DR SANJIV OCNTE Requesting: DR SANJIV CONTE Requesting Attending Attending ID: [id number] Requesting ID: [id number] Report To 1 ID: [id number] Report To 1 Name: DR SANJIV CONTE Report To 1 FAX: [phone] NextGen Order #: us Not In File Miscellaneous IMG MAMMO PROCEDURES F inal Result * DEXA SCAN (10/02/2011) DEXA Scan Normal us Historical Provider HEALTH MAINTENANCE Final Result from Last 3 Months or Most Recently Relevant to Health Maintenance Insurance MEDICARE MEDICARE MEDICARE Care Teams Enamel Dipper Relationship Specialty Start Date End Date Magali Jon NP [address] [facility] [address] [place] [address] PCP - General Nurse Practitioner 09/21/24
--- NOTE | 2025-03-21 15:31 | WPDPFTINT ---
PFT Procedure Performed PFT Procedure Performed Spirometry with Pre/Post Bronchodilator Plethysmography (Lung Vol) Diffusing Cap (DLCO) Flow Vol Loop PFT Interpretation This is a pulmonary function test with pre and post-bronchodilator spirometry, plethysmography and diffusing capacity. The test was performed and results interpreted in accordance with the 2019 and 2005 ATS/ERS Task Force guidelines respectively using the Global Lung Function Initiative-2012 reference equations. Patient demonstrated good effort and cooperation. Reproducibility criteria were met. The quality of the pre bronchodilator spirometry maneuver was Grade A and post bronchodilator spirometry maneuver was Grade A. Findings: Spirometry: The contour the inspiratory and expiratory flow tracing are normal. The pre bronchodilator FVC is 1.48 L, 60% predicted. The pre bronchodilator FEV1 is 0.99 L, 50% predicted. The pre bronchodilator FEV1: FVC ratio is 67%. The post bronchodilator FVC is 1.67 L, which corresponds to a 190 mL increase representing a 13% increase. The post bronchodilator FEV1 is 1.15 L, which corresponds to 160 mL increase representing a 16% increase. the post bronchodilator FEV1: FVC ratio is 69%. Plethysmography: The total lung capacity is 3.57 L, 83% predicted. The functional residual capacity is 2.29 L, 95% predicted. The residual volume is 1.96 L, 106% predicted. The residual volume: Total lung capacity ratio is 55%. Diffusing capacity: The diffusing capacity unadjusted for hemoglobin and carboxyhemoglobin is 15.2, 81% predicted. The diffusing capacity adjusted for alveolar volume is 6.29, 137% predicted. Impression: The FEV1 is less than 80% predicted and the FEV1: FVC ratio is greater than the lower limit of normal consistent with Preserved Ratio Impaired Spirometry (PRISm) with a low FVC. There is no significant improvement after inhaling a single dose of albuterol as the absolute increase in FVC and FEV1 are less than 200 mL. The increase in residual volume to total lung volume ratio is consistent with hyperinflation. The diffusing capacity unadjusted for hemoglobin and carboxyhemoglobin is normal and is increased when adjusted for alveolar volume. There are no prior studies for comparison
== END 2025-03-21 12:38 | disposition home or self-care (01) ==
PROVIDERS: PCP Hospitalist; Visit Provider Internal Medicine Pulmonary Disease
DX: J18.9 Pneumonia, unspecified organism (principal)
CPT/HCPCS: 94060; 94726; 94729

== ENCOUNTER 2025-03-25 10:26 | Inpatient (IN) | payer MEDICARE, SELFPAY ==
[2025-03-25] VITALS (25 sets, daily range): BP systolic 123–163; BP diastolic 72–95; PULSE 78–121; RESP 16–26; TEMP 36.1–36.4; O2SAT 91–97; BMI 49.9
--- NOTE | ~2025-03-25 | CT_ITS ---
CTA CHEST CLINICAL HISTORY: shortness of breath, tachy, r/o pe . COMPARISON: Chest x-ray today CTA chest 12/12/2024 TECHNIQUE: Helical CTA performed from thoracic inlet to upper abdomen IV contrast information not listed in PACS Coronal, sagittal reformats. Multiplanar MIPS CT images acquired with automatic exposure control for dose reduction DLP: 757 mGy-cm FINDINGS: Respiratory motion artifact could obscure small PE. Pulmonary arteries: No PE identified. Thoracic Aorta: No dissection or aneurysm. Heart/pericardium: Unremarkable. RV/LV ratio: Normal. Lungs/Pleura: Scattered foci bilateral airspace disease, worst right upper lobe. Tracheobronchial tree: Patent. Nodes: No enlarged nodes. Small mediastinal and hilar nodes Bones: No acute bony abnormality. Soft tissues: Unremarkable. Visualized upper abdomen: Cirrhosis, hepatomegaly, steatosis. Gallstones. IMPRESSION: 1. Multifocal bilateral pneumonitis and/or airspace disease, progressed from December. 2. No PE identified. Reviewed, dictated and finalized at location R. PMENT MAINTENANCE TECH IMPRESSION: 1. Multifocal bilateral pneumonitis and/or airspace disease, progressed from A ugust. 2. No PE identified.
--- NOTE | ~2025-03-25 | XR_ITS ---
EXAM/PROCEDURE: XR chest 2V HISTORY: Coughing and shortness of breath COMPARISON: February 04 TECHNIQUE: Two AP and one lateral view(s) of the chest. FINDINGS: Exam is suboptimal because of the morbid obesity and lordotic positioning on the AP views. LUNGS: Linear area of probable atelectasis in the anterior right lung is noted. There is a calcified granuloma on the right. PLEURAL SPACES: Clear. No evidence of fluid or pneumothorax. HEART/ MEDIASTINUM: Grossly normal for the AP technique and lordotic positioning. SOFT TISSUES: No significant findings. BONES: No acute osseous abnormality. IMPRESSION: Grossly, there are no acute findings seen. Reviewed, dictated and finalized at location A. INE I ENGRAVER
--- NOTE | 2025-03-25 10:35 | ECG_ITS ---
Test Date: 2025-03-25 10:38:16 Measurements Intervals Wayne Rate: 118 P: 33 LA: 154 QRS: 23 QRSD: 83 T: 55 QT: 317 QTc: 445 Interpretive Statements SINUS TACHYCARDIA NONSPECIFIC T-WAVE ABNORMALITY ABNORMAL RHYTHM ECG Compared to ECG 02/04/2025 11:38:13 No significant changes Electronically Signed On 03-25-2025 13:23:17 TRANSMITTER ENGINEER by Chris Tay M.D.
--- NOTE | 2025-03-25 10:55 | ED.SOB ---
HPI - SOB/Dyspnea General Chief Complaint: Shortness of Breath/Dyspnea Stated Complaint: SOB Source: patient Mode of arrival: ambulatory Limitations: no limitations History of Present Illness HPI Narrative: This is a 64-year-old female with history of recurrent pneumonia, reactive airway disease chronic sinusitis who presents to the ED for shortness of breath. Patient states for the past week, she has been having worsening shortness of breath. She had PFTs done earlier this week and was started on nighttime oxygen but has had worsening symptoms since then. Denies chest pain, nausea vomiting. Denies fever, chills. She did try her DuoNebs at home with minimal relief. He did administer DuoNeb and Solu-Medrol. Related Data Home Medications ?Medication ?Instructions ?Recorded ?Confirmed ?Last Taken ?Type lisinopril 20 mg tablet 10 mg PO HS 10/26/24 03/25/25 03/24/25 History Allergies Allergy/AdvReac Type Severity Reaction Status Date / Time amoxicillin (From Augmentin) Allergy Intermediate Hives Verified 03/25/25 14:50 clavulanic acid (From Allergy Intermediate Hives Verified 03/25/25 14:50 Augmentin) Penicillins Allergy Intermediate Itching Verified 03/25/25 14:50 Review of Systems Review of Systems: Gen.: Denies fevers or chills Eyes: Denies eye pain or visual change ENT: Denies congestion Respiratory: As per HPI CV: Denies chest pain or palpitations GI: Denies abdominal pain nausea, emesis or diarrhea denies burning, urgency, frequency or hematuria Musculoskeletal: Denies back pain or muscle pain Neuro: Denies numbness, tingling, weakness or focal weakness Skin: Denies rash Except as documented, all other systems reviewed and negative [facility] Past Medical History Medical History (Updated 03/25/25 @ 18:48 by Edgardo Hernandez DO) Hypoxemia requiring supplemental oxygen Polycythemia Nasal septal deviation Nasal mucosa dry Morbid obesity with BMI of 50.0-59.9, adult Hypertension Maxillary sinus polyp Surgical History Surgical History H/O: hysterectomy History of appendectomy Family History Family History (Updated 03/25/25 @ 14:54 by Christine Hurtado RN) Mother Diabetes mellitus Heart attack Hypertension Cerebrovascular accident Sibling Acute myocardial infarction Father Prostate carcinoma Grandparent Congestive heart failure Hypertension Social History Social History Social History: She is 1 of 10 children. Her and her younger brother live together. She is single and never been and does not have any children. 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 She denies any history of alcohol, tobacco or illicit substance use. Code status: Full code Surrogate decision maker: Dora Peres (sister) Caffeine-green tea, occasional soda Smoking status: Never smoker Second hand tobacco smoke exposure: No Alcohol intake: never Substance use: never Substance use type: does not use Do You Feel Safe in your Home?: Yes Lack of Transportation: No Lack of Food: Never True Current Housing: I Have Housing Concerned About Future Housing: No Difficulty Paying Gas/Electric Bills: No Difficulty Paying for Meds: No Currently Unemployed: No Education: Associate Degree Difficulty w/ Childcare or Family Care: No Spiritual care concerns: No Exam Narrative: APPEARANCE: Mild distress, nontoxic, resting in bed EYES: EOMI HEENT: Normocephalic, atraumatic, OMM RESPIRATORY: No respiratory distress diminished breath sounds throughout with slight rhonchorous breath sounds on the right CARDIOVASCULAR: Regular rate and rhythm without murmurs rubs or gallops. ABDOMINAL: Soft, nontender, nondistended, no rebound or guarding MUSCULOSKELETAl: Moves all extremities. No clubbing, cyanosis or edema. NEURO: Awake and alert. Following commands, speech normal, no focal deficits SKIN:: Warm, dry. No rashes lesions or abrasions PSYCHIATRIC: Normal affect/mood, Course Vital Signs Vital signs: Vital Signs Pulse Rate 120 H 03/25/25 10:32 Respiratory Rate 16 03/25/25 10:32 Blood Pressure 163/90 H 03/25/25 10:32 Pulse Oximetry 95 03/25/25 10:32 Temperature 97.3 F L 03/25/25 14:49 Pulse Rate 109 H 03/25/25 16:00 Respiratory Rate 20 03/25/25 14:49 Blood Pressure 154/94 H 03/25/25 14:49 Pulse Oximetry 93 03/25/25 14:49 Oxygen Delivery Oxymizer 03/25/25 14:23 Oxygen Flow Rate 2 03/25/25 14:23 MDM - SOB/Dyspnea MDM Narrative Medical decision making narrative: 64-year-old female Presenting for shortness of breath. On initial evaluation patient was in mild distress afebrile, hemodynamic stable. Differentials include but are not limited to: ACS, CHF Exacerbation, COPD exacerbation, PE, PNA, PTX, bronchitis, viral syndrome Notable exam findings: Diminished breath sounds throughout. No x-ray wheezes or rhonchi. I personally reviewed the patient's lab result. Notable lab findings: Leukocytosis at 17. ABG consistent with hypoxemia and hypercarbia. CMP without significant abnormalities. COVID/flu/RSV negative. I personally reviewed the patient's images. Notable imaging findings: Chest x-ray showed no acute process. CTA chest showed pneumonitis versus pneumonia. I personally reviewed the patient's EKGs: No concerning findings Patient remains satting low 90s on 4 L nasal cannula. Patient had a a nasal fracture a year ago and has had a deviated septum since then. She noted some congestion today. I suspect that she is not actually being administered oxygen through her nose at this time. Therefore she was started on a non-rebreather and did have improvement of her sats to the mid to high 90s. Initially was discussing possible options for supplemental oxygen at home but there was apparently nothing available at this time. However, CTA chest was obtained did show evidence of pneumonia. Due to her increased oxygen requirements, patient will require admission for treatment of her pneumonia. She was cycling she received Solu-Medrol [facility]. Discussed case with hospitalist who will admit the patient. Medical Records Attestation: I reviewed the patient's medical records. Lab Data Attestation: I reviewed the patient's lab results. 03/25/25 10:53 03/25/25 10:53 Labs: Lab Results 03/25/25 Range/Units 10:53 WBC 17.0 H (4.5-10.0) K/mm3 RBC 6.03 H (4.2-5.4) M/mm3 Hgb 16.2 H D (12.0-15.0) g/dL Hct 51.7 H (37.0-47.0) % MCV 85.7 (80-100) fl MCH 26.9 (26-34) pg MCHC 31.3 L (32-36) g/dl RDW 14.0 (11.5-14.5) % Plt Count 350 (150-375) k/mm3 MPV 9.1 (7.4-10.4) fl Immature Gran % (Auto) 0.2 (0-0.5) % Neut % (Auto) 64.3 (45.5-73.1) % Lymph % (Auto) 25.6 (18.3-44.2) % [place]ole % (Auto) 5.9 (2.6-8.5) % Eos % (Auto) 3.6 (0-4.4) % Baso % (Auto) 0.4 (0.2-1.2) % Lymph # (Auto) 4.36 H (0.9-3.2) K/mm3 [place]ole # (Auto) 1.0 H (0.1-0.6) K/mm3 Eos # (Auto) 0.6 H (0-0.3) K/mm3 Baso # (Auto) 0.1 (0.0-0.1) K/mm3 Abs Immat Gran (auto) 0.04 H (0.00-0.031) K/mm3 Absolute Neuts (auto) 10.9 H (1.3-6.7) K/mm3 Absolute Nucleated RBC 0.000 (0.0-0.012) K/mm3 Nucleated RBC % 0.0 (0.0-0.2) % Sodium 138 (137-145) mmol/L Potassium 4.3 (3.4-5.0) mmol/L Chloride 97 L (98-107) mmol/L Carbon Dioxide 32 H (22-30) mmol/L Anion Gap 9 (4-12) mmol/L BUN 13 D (7-17) mg/dL Creatinine 0.69 L (0.7-1.0) mg/dL Estim Creat Clear Calc Not Reportable Estimated GFR > 60 (59 - ) Glucose 143 H (65-110) mg/dL Calcium 9.0 (8.4-10.2) mg/dL Total Bilirubin 1.0 (0.2-1.3) mg/dL AST 26 (14-36) U/L ALT 16 (6-35) U/L Alkaline Phosphatase 118 (38-126) U/L Total Protein 8.7 H (6.3-8.2) g/dL Albumin 4.5 (3.5-5.1) g/dL ABG Data ABG results: 03/25/25 11:33 Puncture Site Left radial ABG pH 7.383 ABG pCO2 49.2 H ABG pO2 67.0 L ABG PO2/FiO2 Ratio 2.23 ABG HCO3 28.6 H ABG O2 Saturation 92.9 L ABG O2 Content 21.4 ABG Base Excess 2.6 A-a Gradient 89.1 Oxyhemoglobin 92.3 Total Hemoglobin 16.5 O2 Delivery Device Nasal cannula O2 Liters/Min 2.5 FiO2 30 Imaging Data Attestation: I personally reviewed and interpreted this imaging study as follows: My impression: Chest x-ray: Normal cardiac silhouette, no consolidations, no pleural effusions, no pulmonary vascular congestion ECG Data EKG #1: Attestation: I personally reviewed and interpreted this ECG as follows: ECG completion date: 03/25/25 ECG completion time: 11:38 Interpretation: Sinus tachycardia rate of 118, normal axis, normal intervals, no acute ST or T-wave changes Discharge Plan Discharge Clinical Impression: Acute hypoxemic respiratory failure, CAP (community acquired pneumonia), Morbid obesity with BMI of 50.0-59.9, adult Hypertension Qualifiers: Hypertension type: primary hypertension Qualified Code(s): I10 - Essential (primary) hypertension Patient Disposition: Still a Patient Condition: Stable
[2025-03-25 11:03] LABS: Hematocrit 51.7 % (37.0-47.0); Hemoglobin 16.2 g/dL (12.0-15.0); Immature Granulocyte Percent A 0.2 % (0-0.5); Lymphocytes Absolute Auto 4.36 K/mm3 (0.9-3.2); Mean Corpuscular HGB Conc 31.3 g/dl (32-36); Mean Corpuscular Hemoglobin 26.9 pg (26-34); Mean Corpuscular Volume 85.7 fl (80-100); Nucleated Red Blood Cells Absolute Auto 0.000 K/mm3 (0.0-0.012); Nucleated Red Blood Cells Perc 0.0 % (0.0-0.2); Platelet Count Result 350 k/mm3 (150-375); Red Blood Count 6.03 M/mm3 (4.2-5.4); White Blood Count 17.0 K/mm3 (4.5-10.0)
[2025-03-25 11:13] LABS: Alanine Aminotransferase 16 U/L (6-35); Albumin Level 4.5 g/dL (3.5-5.1); Alkaline Phosphatase 118 U/L (38-126); Anion Gap 9 mmol/L (4-12); Aspartate Amino Transferase 26 U/L (14-36); Bilirubin,Total 1.0 mg/dL (0.2-1.3); Blood Urea Nitrogen 13 mg/dL (7-17); Calcium 9.0 mg/dL (8.4-10.2); Carbon Dioxide 32 mmol/L (22-30); Chloride 97 mmol/L (98-107); Estimated Glomerular Filt Rate > 60; Glucose 143 mg/dL (65-110); Potassium 4.3 mmol/L (3.4-5.0); Sodium 138 mmol/L (137-145); Total Protein 8.7 g/dL (6.3-8.2)
[2025-03-25 11:35] LABS: Alveolar/Arterial O2 Gradient 89.1 mmHg; Fractional Inspired Oxygen 30 %; HCO3 ABG 28.6 mEq/l (22.0-26.0); Oxygen Content ABG 21.4 %vol (16.0-22.0); Oxygen Saturation ABG 92.9 % (95.0-100.0); PCO2 ABG 49.2 mmHg (35.0-45.0); PO2 ABG 67.0 mmHg (80.0-100.0); PO2 FiO2 Ratio Arterial Blood 2.23 %
[2025-03-25 11:36] LABS: Liters per Minute 2.5 LPM; Modified Allen's Test Pass; Site Drawn LEFT RADIAL
--- NOTE | 2025-03-25 13:24 | P.HP_ITS ---
H&P: HPI History of Present Illness Date/Time: 03/25/25 13:24 Chief Complaint: shortness of breath Narrative: 64-year-old female with past medical history of severely deviated septum after a broken nose, home O2 2 L nasal cannula at night, presents the hospital with acute shortness of breath. Since the patient has broken her nose she had several issues with breathing and frequent pneumonia. Patient had increased shortness of breath and difficulty breathing associated called EMS. She is normally only on 2 L nasal cannula at night. However when EMS found her she was on 2 L nasal cannula with a pulse ox of 90. Patient has been worked up outpatient for surgery. Her auto electrical technician is Dr. Muhammad. Lab work in the ED shows leukocytosis at 17.3, hemoglobin of 16.2, ABG 7.38, pCO2 49.2 PO2 of 67, bicarb of 28.6, on 2 L nasal cannula. Chest CTA shows Multifocal bilateral pneumonitis and/or airspace disease, progressed from December, no PE identified. Review of Systems Review of Systems: 12 systems were reviewed and are negative except for as per HPI. [facility] Past Medical History Medical History (Updated 03/25/25 @ 18:48 by Edgardo Hernandez DO) Hypoxemia requiring supplemental oxygen Polycythemia Nasal septal deviation Nasal mucosa dry Morbid obesity with BMI of 50.0-59.9, adult Hypertension Maxillary sinus polyp Surgical History Surgical History H/O: hysterectomy History of appendectomy Family History Family History (Updated 03/25/25 @ 14:54 by Christine Hurtado RN) Mother Diabetes mellitus Heart attack Hypertension Cerebrovascular accident Sibling Acute myocardial infarction Father Prostate carcinoma Grandparent Congestive heart failure Hypertension Social History Social History Social History: She is 1 of 10 children. Her and her younger brother live together. She is single and never been and does not have any children. 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 She denies any history of alcohol, tobacco or illicit substance use. Code status: Full code Surrogate decision maker: Dora Peres (sister) Caffeine-green tea, occasional soda Smoking status: Never smoker Second hand tobacco smoke exposure: No Alcohol intake: never Substance use: never Substance use type: does not use Do You Feel Safe in your Home?: Yes Lack of Transportation: No Lack of Food: Never True Current Housing: I Have Housing Concerned About Future Housing: No Difficulty Paying Gas/Electric Bills: No Difficulty Paying for Meds: No Currently Unemployed: No Education: Associate Degree Difficulty w/ Childcare or Family Care: No Spiritual care concerns: No Meds Home Medications and Allergies Home Medications ?Medication ?Instructions ?Recorded ?Confirmed ?Type lisinopril 20 mg tablet 10 mg PO HS 10/26/24 5 History budesonide 0.5 mg/2 mL suspension 0.5 mg (2 mL) inhala tion Q12HRT 02/07/25 03/25/25 Rx for nebulization (Pulmicort) #60 mL guaifenesin 600 mg tablet, 1,200 mg (2 x 600 mg) PO Q1 2HR #60 02/07/25 03/25/25 Rx extended release 12 hr (Mucus tabs Relief ER) ipratropium bromide 0.02 % 0.5 mg (2.5 mL) inhalation Q6HRT 02/07/25 03/25/25 Rx solution for inhalation #75 mL nebulizer and compressor #1 ea 02/07/25 03/25/25 Rx Allergies Allergy/AdvReac Type Severity Reaction Status Date / Time amoxicillin (From Augmentin) Allergy Intermediate Hives Verified 03/25/25 14:50 clavulanic acid (From Allergy Intermediate Hives Verified 03/25/25 14:50 Augmentin) Penicillins Allergy Intermediate Itching Verified 03/25/25 14:50 Vital Signs Vital Signs - 24 hr 03/25/25 10:32 03/25/25 10:33 03/25/25 10:33 Temperature 97.5 F L Pulse Rate 120 H 119 H 115 H Respiratory Rate 16 20 19 Blood Pressure 163/90 H 163/90 H Pulse Oximetry 95 94 95 Oxygen Delivery Nasal Cannula Oxygen Flow Rate 2 03/25/25 10:39 03/25/25 10:45 03/25/25 10:46 Temperature Pulse Rate 118 H 120 H Respiratory Rate 22 H 21 H Blood Pressure 156/95 H Pulse Oximetry 93 91 92 Oxygen Delivery Nasal Cannula Oxygen Flow Rate 2 03/25/25 11:10 03/25/25 11:15 03/25/25 11:30 Temperature Pulse Rate 114 H 115 H 114 H Respiratory Rate 20 21 H 21 H Blood Pressure Pulse Oximetry 91 93 91 Oxygen Delivery Oxygen Flow Rate 03/25/25 11:45 03/25/25 12:00 03/25/25 12:26 Temperature Pulse Rate 120 H 111 H 119 H Respiratory Rate 19 23 H 26 H Blood Pressure Pulse Oximetry 92 97 95 Oxygen Delivery Oxygen Flow Rate 03/25/25 12:30 03/25/25 12:45 03/25/25 13:15 Temperature Pulse Rate 121 H 117 H Respiratory Rate 21 H 19 Blood Pressure 135/90 Pulse Oximetry 93 94 Oxygen Delivery Oxygen Flow Rate Exam Narrative: General: well appearing, appears stated age. HEENT: normocephalic, atraumatic. Mucous membranes moist. EOMI, PERRLA, bilateral sclera anicteric, no conjunctival injection. Neck supple without JVD, lymphadenopathy, or bruit. Respiratory: Expiratory wheezes Cardiovascular: Regular rate and rhythm, normal S1-S2. No murmurs, rubs, or clicks. PMI is nondisplaced, capillary refill less than 3 second. Abdomen: Obese Soft, round, no pulsatile masses, nondistended and nontender. No rebound, no guarding. Bowel sounds present to all four quadrants. No high pitch or tinkling sounds, resonant to percussion. Extremities: No cyanosis, clubbing, or edema present. Pulses are palpable 2/2. Active ROM to all four extremities. Neuro: Alert and orientated x 4. PERRLA. Cranial nerves 2-12 intact without focal deficit. Skin: Warm, dry, and intact, without rash, erythema, or lesion. Psych: pleasant, cooperative, normal speech, normal affect, no hallucinations, no dysarthia H&P: Results Labs Labs: Short CBC 03/25/25 Range/Units 10:53 WBC 17.0 H (4.5-10.0) K/mm3 Hgb 16.2 H D (12.0-15.0) g/dL Hct 51.7 H (37.0-47.0) % Plt Count 350 (150-375) k/mm3 [facility] 03/25/25 10:53 Sodium 138 Potassium 4.3 Chloride 97 L Carbon Dioxide 32 H BUN 13 D Creatinine 0.69 L Glucose 143 H Calcium 9.0 Liver Function 03/25/25 Range/Units 10:53 Total Bilirubin 1.0 (0.2-1.3) mg/dL AST 26 (14-36) U/L ALT 16 (6-35) U/L Alkaline Phosphatase 118 (38-126) U/L Albumin 4.5 (3.5-5.1) g/dL Assessment and Plan Assessment and plan (1) Community acquired pneumonia: Qualifiers: Laterality: unspecified laterality Qualified Code(s): J18.9 - Pneumonia, unspecified organism Code(s): J18.9 - Pneumonia, unspecified organism Status: Acute Assessment and Plan: reoccurring pneumonia secondary to deviated septum pulmonology consulted pending recommendations IV Rocephin and doxy guaifenesin Robitussin incentive spirometer Dr. Muhammad available over the weekend by phone consult he recommends DuoNebs, Rocephin, doxycycline, Flonase and Claritin. (2) Nasal septal deviation: Code(s): J34.2 - Deviated nasal septum Status: Acute Assessment and Plan: causing hypoxia Recommending following up outpatient with ENT as this is been a chronic issue (3) Acute hypoxemic respiratory failure: Code(s): J96.01 - Acute respiratory failure with hypoxia Status: Acute Assessment and Plan: secondary to above (4) Polycythemia: Code(s): D75.1 - Secondary polycythemia Status: Acute Assessment and Plan: Chronic hypoxia versus dehydration versus both versus other CBC in a.m. (5) Hypertension: Qualifiers: Hypertension type: primary hypertension Qualified Code(s): I10 - Essential (primary) hypertension Code(s): I10 - Essential (primary) hypertension Status: Chronic Assessment and Plan: Continue lisinopril Quality VTE Prophylaxis VTE prophylaxis: mechanical ordered and pharmacologic ordered Hospitalist MIPS Advance Care Plan I have confirmed that the patient's Advanced Care Plan is present, code status is documented, or surrogate decision maker is listed in patient medical record.: Yes Medication Reconciliation I have utilized all available resources to obtain, update and review the patients current medications (includes all prescriptions, OTC, herbals, cannabis, and nutritional supplements).: Yes
[2025-03-25] MEDS: cefTRIAXone 2 GM in SODIUM CHLORIDE 0.9% IV 100 ML 200 ML IVPB (13:26)
--- NOTE | 2025-03-25 13:33 | WPCEDHO ---
ED Hand Off Checklist All vitals saved:y IV Site documented:y All med administrations documented:y Triage Note Triage Note To ed via ems with c/o cough and 03/25/25 10:33 sob that started 4 days ago becoming worse. Reports she sees a bar captain for pneumonia and uses home 02 at 2 l while sleeping. Had to use a nebulizer yesterday due to sob and wheezing. States her breathing became worse today. Productive cough of brown sputum. States she has a deviated septum and thinks the sputum is caused from sinus drainage. Allergies amoxicillin (From Augmentin) Allergy (Intermediate, Verified 03/25/25 10:38) Hives clavulanic acid (From Augmentin) Allergy (Intermediate, Verified 03/25/25 10:38) Hives Penicillins Allergy (Intermediate, Verified 03/25/25 10:38) Itching Family History (Last Reviewed 03/25/25 @ 10:56 by Edgardo Hernandez DO) Mother Diabetes mellitus Heart attack Hypertension Sibling Acute myocardial infarction Father Prostate carcinoma Grandparent Congestive heart failure Hypertension Administered/Completed Medications Discontinued Medications Ceftriaxone Sodium 2 gm/ (Sodium Chloride) 100 mls @ 200 mls/hr IVPB ONCE STA Stop: 03/25/25 13:14 Last Admin: 03/25/25 13:26 Dose: 200 mls/hr Documented By: LEV Interventions/Assessments IV / Saline Lock, Insert Start: 03/25/25 10:35 Freq: STAT Status: Active Protocol: Document 03/25/25 10:39 LEV (Rec: 03/25/25 10:39 LEV [id number]) IV Assessment Peripheral Access Right Wrist IV Catheter Access Initiated Before Arrival IV Insertion Date 03/25/25 IV Insertion Time 10:39 Catheter Gauge 20 IV Site Assessment WNL IV Care and WNL Maintenance PA: Cardiovascular Assessment Start: 03/25/25 10:12 Freq: Status: Active Protocol: Document 03/25/25 10:41 LEV (Rec: 03/25/25 10:41 LEV [id number]) Cardiovascular Assessment Cardiovascular Dyspnea Symptoms Skin Description Normal Color Heart Sounds Normal Jugular Vein None Distention Rhythm/Strength Monitor Rhythm Regular Pulse Strength 3+ Normal EKG Rythm Sinus Tachycardia PA: Respiratory Assessment Start: 03/25/25 10:12 Freq: Status: Active Protocol: Document 03/25/25 10:39 LEV (Rec: 03/25/25 10:40 [facility] [id number]) Respiratory Assessment Symptoms Congestion,Cough,Shortness of Breath at Rest Effort Normal Pattern Regular Depth Normal Chest Expansion Symmetrical Adult Capillary Normal/Less than 2 Seconds Refill Throughout Phase Expiratory Lung Sounds Wheezes Cough Description Productive Cough Frequency Intermittent Sputum Production/ Spontaneous Expectoration Suction Method Sputum Amount Small Sputum Color Brown Sputum Consistency Thick Oxygen Delivery Oxygen Delivery Nasal Cannula Oxygen Flow Rate 2 Pulse Oximetry (90- 93 100) Last Vital Signs Temperature 97.5 F L 03/25/25 10:33 Pulse Rate 117 H 03/25/25 12:45 Respiratory Rate 19 03/25/25 12:45 Pulse Oximetry 93 03/25/25 13:15 Blood Pressure 135/90 03/25/25 13:15 Blood Pressure Mean 105 03/25/25 13:15 Blood Pressure Position Sitting 03/25/25 13:15 Oxygen Delivery Oxymizer 03/25/25 13:15 Oxygen Flow Rate 2 03/25/25 13:15 Weight 112.2 kg 03/25/25 10:33 Last Result - Abnormals Only WBC 17.0 K/mm3 (4.5-10.0) H 03/25/25 10:53 RBC 6.03 M/mm3 (4.2-5.4) H 03/25/25 10:53 Hgb 16.2 g/dL (12.0-15.0) H D 03/25/25 10:53 Hct 51.7 % (37.0-47.0) H 03/25/25 10:53 MCHC 31.3 g/dl (32-36) L 03/25/25 10:53 Lymph # (Auto) 4.36 K/mm3 (0.9-3.2) H 03/25/25 10:53 [place] # (Auto) 1.0 K/mm3 (0.1-0.6) H 03/25/25 10:53 Eos # (Auto) 0.6 K/mm3 (0-0.3) H 03/25/25 10:53 Abs Immat Gran (auto) 0.04 K/mm3 (0.00-0.031) H 03/25/25 10:53 Absolute Neuts (auto) 10.9 K/mm3 (1.3-6.7) H 03/25/25 10:53 ABG pCO2 49.2 mmHg (35.0-45.0) H 03/25/25 11:33 ABG pO2 67.0 mmHg (80.0-100.0) L 03/25/25 11:33 ABG HCO3 28.6 mEq/l (22.0-26.0) H 03/25/25 11:33 ABG O2 Saturation 92.9 % (95.0-100.0) L 03/25/25 11:33 Chloride 97 mmol/L (98-107) L 03/25/25 10:53 Carbon Dioxide 32 mmol/L (22-30) H 03/25/25 10:53 Creatinine 0.69 mg/dL (0.7-1.0) L 03/25/25 10:53 Glucose 143 mg/dL (65-110) H 03/25/25 10:53 Total Protein 8.7 g/dL (6.3-8.2) H 03/25/25 10:53 Most Recent Suicide Severity Rating Suicide Severity Rating NO RISK INDICATED 03/25/25 10:33
[2025-03-25] MEDS: DOXYCYCLINE IV 100 MG in SODIUM CHLORIDE 0.9% IV 100 ML IVPB (13:44)
--- NOTE | 2025-03-25 13:47 | WPCEDHO ---
ED Hand Off Checklist All vitals saved:y IV Site documented:y All med administrations documented:y Triage Note Triage Note To ed via ems with c/o cough and 03/25/25 10:33 sob that started 4 days ago becoming worse. Reports she sees a photography coordinator for pneumonia and uses home 02 at 2 l while sleeping. Had to use a nebulizer yesterday due to sob and wheezing. States her breathing became worse today. Productive cough of brown sputum. States she has a deviated septum and thinks the sputum is caused from sinus drainage. Allergies amoxicillin (From Augmentin) Allergy (Intermediate, Verified 03/25/25 10:38) Hives clavulanic acid (From Augmentin) Allergy (Intermediate, Verified 03/25/25 10:38) Hives Penicillins Allergy (Intermediate, Verified 03/25/25 10:38) Itching Family History (Last Reviewed 03/25/25 @ 10:56 by Edgardo Hernandez DO) Mother Diabetes mellitus Heart attack Hypertension Sibling Acute myocardial infarction Father Prostate carcinoma Grandparent Congestive heart failure Hypertension Administered/Completed Medications Discontinued Medications Ceftriaxone Sodium 2 gm/ (Sodium Chloride) 100 mls @ 200 mls/hr IVPB ONCE STA Stop: 03/25/25 13:14 Last Infusion: 03/25/25 13:45 Dose: Infused Documented By: Admin: 03/25/25 13:26 Dose: 200 mls/hr Documented By: RAVEN Doxycycline Hyclate 100 mg/ (Sodium Chloride) 100 mls @ 100 mls/hr IVPB ONCE ONE Stop: 03/25/25 13:44 Last Admin: 03/25/25 13:44 Dose: 100 mls/hr Documented By: RAVEN Notes 03/25/25 13:33 ED Hand Off by Bhargavi Mcknight ED Hand Off Checklist All vitals saved:y IV Site documented:y All med administrations documented:y Triage Note Triage Note To ed via ems with c/o cough and 03/25/25 10:33 sob that started 4 days ago becoming worse. Reports she sees a photography coordinator for pneumonia and uses home 02 at 2 l while sleeping. Had to use a nebulizer yesterday due to sob and wheezing. States her breathing became worse today. Productive cough of brown sputum. States she has a deviated septum and thinks the sputum is caused from sinus drainage. Allergies amoxicillin (From Augmentin) Allergy (Intermediate, Verified 03/25/25 10:38) Hives clavulanic acid (From Augmentin) Allergy (Intermediate, Verified 03/25/25 10:38) Hives Penicillins Allergy (Intermediate, Verified 03/25/25 10:38) Itching Family History (Last Reviewed 03/25/25 @ 10:56 by Edgardo Hernandez DO) Mother Diabetes mellitus Heart attack Hypertension Sibling Acute myocardial infarction Father Prostate carcinoma Grandparent Congestive heart failure Hypertension Administered/Completed Medications Discontinued Medications Ceftriaxone Sodium 2 gm/ (Sodium Chloride) 100 mls @ 200 mls/hr IVPB ONCE STA Stop: 03/25/25 13:14 Last Admin: 03/25/25 13:26 Dose: 200 mls/hr Documented By: RAVEN Interventions/Assessments IV / Saline Lock, Insert Start: 03/25/25 10:35 Freq: STAT Status: Active Protocol: Document 03/25/25 10:39 LEV (Rec: 03/25/25 10:39 LEV [id number]) IV Assessment Peripheral Access Right Wrist IV Catheter Access Initiated Before Arrival IV Insertion Date 03/25/25 IV Insertion Time 10:39 Catheter Gauge 20 IV Site Assessment WNL IV Care and WNL Maintenance PA: Cardiovascular Assessment Start: 03/25/25 10:12 Freq: Status: Active Protocol: Document 03/25/25 10:41 LEV (Rec: 03/25/25 10:41 LEV [id number]) Cardiovascular Assessment Cardiovascular Dyspnea Symptoms Skin Description Normal Color Heart Sounds Normal Jugular Vein None Distention Rhythm/Strength Monitor Rhythm Regular Pulse Strength 3+ Normal EKG Rythm Sinus Tachycardia PA: Respiratory Assessment Start: 03/25/25 10:12 Freq: Status: Active Protocol: Document 03/25/25 10:39 LEV (Rec: 03/25/25 10:40 LEV [id number]) Respiratory Assessment Symptoms Congestion,Cough,Shortness of Breath at Rest Effort Normal Pattern Regular Depth Normal Chest Expansion Symmetrical Adult Capillary Normal/Less than 2 Seconds Refill Throughout Phase Expiratory Lung Sounds Wheezes Cough Description Productive Cough Frequency Intermittent Sputum Production/ Spontaneous Expectoration Suction Method Sputum Amount Small Sputum Color Brown Sputum Consistency Thick Oxygen Delivery Oxygen Delivery Nasal Cannula Oxygen Flow Rate 2 Pulse Oximetry (90- 93 100) Last Vital Signs Temperature 97.5 F L 03/25/25 10:33 Pulse Rate 117 H 03/25/25 12:45 Respiratory Rate 19 03/25/25 12:45 Pulse Oximetry 93 03/25/25 13:15 Blood Pressure 135/90 03/25/25 13:15 Blood Pressure Mean 105 03/25/25 13:15 Blood Pressure Position Sitting 03/25/25 13:15 Oxygen Delivery Oxymizer 03/25/25 13:15 Oxygen Flow Rate 2 03/25/25 13:15 Weight 112.2 kg 03/25/25 10:33 Last Result - Abnormals Only WBC 17.0 K/mm3 (4.5-10.0) H 03/25/25 10:53 RBC 6.03 M/mm3 (4.2-5.4) H 03/25/25 10:53 Hgb 16.2 g/dL (12.0-15.0) H D 03/25/25 10:53 Hct 51.7 % (37.0-47.0) H 03/25/25 10:53 MCHC 31.3 g/dl (32-36) L 03/25/25 10:53 Lymph # (Auto) 4.36 K/mm3 (0.9-3.2) H 03/25/25 10:53 [place] # (Auto) 1.0 K/mm3 (0.1-0.6) H 03/25/25 10:53 Eos # (Auto) 0.6 K/mm3 (0-0.3) H 03/25/25 10:53 Abs Immat Gran (auto) 0.04 K/mm3 (0.00-0.031) H 03/25/25 10:53 Absolute Neuts (auto) 10.9 K/mm3 (1.3-6.7) H 03/25/25 10:53 ABG pCO2 49.2 mmHg (35.0-45.0) H 03/25/25 11:33 ABG pO2 67.0 mmHg (80.0-100.0) L 03/25/25 11:33 ABG HCO3 28.6 mEq/l (22.0-26.0) H 03/25/25 11:33 ABG O2 Saturation 92.9 % (95.0-100.0) L 03/25/25 11:33 Chloride 97 mmol/L (98-107) L 03/25/25 10:53 Carbon Dioxide 32 mmol/L (22-30) H 03/25/25 10:53 Creatinine 0.69 mg/dL (0.7-1.0) L 03/25/25 10:53 Glucose 143 mg/dL (65-110) H 03/25/25 10:53 Total Protein 8.7 g/dL (6.3-8.2) H 03/25/25 10:53 Most Recent Suicide Severity Rating Suicide Severity Rating NO RISK INDICATED 03/25/25 10:33 Initialized on 03/25/25 13:33 - END OF NOTE Interventions/Assessments IV / Saline Lock, Insert Start: 03/25/25 10:35 Freq: STAT Status: Active Protocol: Document 03/25/25 13:43 LEV (Rec: 03/25/25 13:44 LEV [id number]) IV Assessment Peripheral Access Right Forearm IV Catheter Access Initiated IV Insertion Date 03/25/25 IV Insertion Time 13:43 Catheter Gauge 20 IV Insertion 1 Attempts Ultrasound Used for No Placement IV Site Assessment WNL IV Care and WNL Maintenance Peripheral Access Right Wrist IV Catheter Access Discontinued Access IV Care and Catheter Removed Intact Maintenance PA: Cardiovascular Assessment Start: 03/25/25 10:12 Freq: Status: Active Protocol: Document 03/25/25 10:41 LEV (Rec: 03/25/25 10:41 LEV [id number]) Cardiovascular Assessment Cardiovascular Dyspnea Symptoms Skin Description Normal Color Heart Sounds Normal Jugular Vein None Distention Rhythm/Strength Monitor Rhythm Regular Pulse Strength 3+ Normal EKG Rythm Sinus Tachycardia PA: Respiratory Assessment Start: 03/25/25 10:12 Freq: Status: Active Protocol: Document 03/25/25 10:39 LEV (Rec: 03/25/25 10:40 LEV [id number]) Respiratory Assessment Symptoms Congestion,Cough,Shortness of Breath at Rest Effort Normal Pattern Regular Depth Normal Chest Expansion Symmetrical Adult Capillary Normal/Less than 2 Seconds Refill Throughout Phase Expiratory Lung Sounds Wheezes Cough Description Productive Cough Frequency Intermittent Sputum Production/ Spontaneous Expectoration Suction Method Sputum Amount Small Sputum Color Brown Sputum Consistency Thick Oxygen Delivery Oxygen Delivery Nasal Cannula Oxygen Flow Rate (L/ 2 min) Pulse Oximetry (90- 93 100 %) Last Vital Signs Temperature 97.5 F L 03/25/25 10:33 Pulse Rate 109 H 03/25/25 13:44 Respiratory Rate 23 H 03/25/25 13:44 Pulse Oximetry 93 03/25/25 13:44 Blood Pressure 138/74 03/25/25 13:44 Blood Pressure Mean 95 03/25/25 13:44 Blood Pressure Position Sitting 03/25/25 13:44 Oxygen Delivery Oxymizer 03/25/25 13:15 Oxygen Flow Rate 2 03/25/25 13:15 Weight 112.2 kg 03/25/25 10:33 Last Result - Abnormals Only WBC 17.0 K/mm3 (4.5-10.0) H 03/25/25 10:53 RBC 6.03 M/mm3 (4.2-5.4) H 03/25/25 10:53 Hgb 16.2 g/dL (12.0-15.0) H D 03/25/25 10:53 Hct 51.7 % (37.0-47.0) H 03/25/25 10:53 MCHC 31.3 g/dl (32-36) L 03/25/25 10:53 Lymph # (Auto) 4.36 K/mm3 (0.9-3.2) H 03/25/25 10:53 [place] # (Auto) 1.0 K/mm3 (0.1-0.6) H 03/25/25 10:53 Eos # (Auto) 0.6 K/mm3 (0-0.3) H 03/25/25 10:53 Abs Immat Gran (auto) 0.04 K/mm3 (0.00-0.031) H 03/25/25 10:53 Absolute Neuts (auto) 10.9 K/mm3 (1.3-6.7) H 03/25/25 10:53 ABG pCO2 49.2 mmHg (35.0-45.0) H 03/25/25 11:33 ABG pO2 67.0 mmHg (80.0-100.0) L 03/25/25 11:33 ABG HCO3 28.6 mEq/l (22.0-26.0) H 03/25/25 11:33 ABG O2 Saturation 92.9 % (95.0-100.0) L 03/25/25 11:33 Chloride 97 mmol/L (98-107) L 03/25/25 10:53 Carbon Dioxide 32 mmol/L (22-30) H 03/25/25 10:53 Creatinine 0.69 mg/dL (0.7-1.0) L 03/25/25 10:53 Glucose 143 mg/dL (65-110) H 03/25/25 10:53 Total Protein 8.7 g/dL (6.3-8.2) H 03/25/25 10:53 Most Recent Suicide Severity Rating Suicide Severity Rating NO RISK INDICATED 03/25/25 10:33
[2025-03-25] MEDS: IPRATROPIUM 0.5 MG/ALBUTEROL SULFATE 2.5 MG (BASE) AMPUL.NEB 3 ML INHALATION ×3 (14:23→20:19)
--- NOTE | 2025-03-25 14:28 | ADMGEN ---
This patient, Zenaida Heart, was admitted to 2 Medical Room 256-. Patient/family oriented to hospital policies and general routines including ID bracelet, bed and alarms, visiting hours, pain management, procedures, bathroom and other care routines, personal items, smoking policy, room service/diet, and visiting hours. Information on how to activate the Rapid Response Team has been discussed. Patient/Family are encouraged to report perceived risks to care and to ask questions if they do not understand what they are told or what they should do.
[2025-03-25] MEDS: FLUTICASONE PROPIONATE 0.05% NA SPR 16 GM BTL (*BKC) 2 SPRAY NASAL (17:34)
[2025-03-25] MEDS: LORATADINE 10 MG TABLET PO (17:38)
[2025-03-25 18:26] LABS: Influenza A QL RT-PCR Negative (Negative); Influenza B QL RT-PCR Negative (Negative); RSV RNA, RT-PCR Negative (Negative); SARS-CoV-2 RNA PCR Negative (Negative)
[2025-03-25] MEDS: BUDESONIDE RESPULE NEB 0.5 MG/2 ML AMP INHALATION (20:19)
[2025-03-25] MEDS: guaiFENesin 12 HR 600 MG TABCR 1200 MG PO (20:49)
[2025-03-25] MEDS: ACETAMINOPHEN 325 MG TABLET 650 MG PO (21:10)
[2025-03-26] VITALS (18 sets, daily range): BP systolic 121–130; BP diastolic 60–78; PULSE 92–110; RESP 18–22; TEMP 36.2–36.8; O2SAT 90–97
[2025-03-26] MEDS: IPRATROPIUM 0.5 MG/ALBUTEROL SULFATE 2.5 MG (BASE) AMPUL.NEB 3 ML INHALATION ×4 (01:57→20:30)
[2025-03-26 05:09] LABS: Hematocrit 46.7 % (37.0-47.0); Hemoglobin 14.2 g/dL (12.0-15.0); Immature Granulocyte Percent A 0.5 % (0-0.5); Lymphocytes Absolute Auto 1.25 K/mm3 (0.9-3.2); Mean Corpuscular HGB Conc 30.4 g/dl (32-36); Mean Corpuscular Hemoglobin 26.4 pg (26-34); Mean Corpuscular Volume 86.8 fl (80-100); Nucleated Red Blood Cells Absolute Auto 0.000 K/mm3 (0.0-0.012); Nucleated Red Blood Cells Perc 0.0 % (0.0-0.2); Platelet Count Result 306 k/mm3 (150-375); Red Blood Count 5.38 M/mm3 (4.2-5.4); White Blood Count 10.9 K/mm3 (4.5-10.0)
[2025-03-26 05:33] LABS: Anion Gap 6 mmol/L (4-12); Blood Urea Nitrogen 17 mg/dL (7-17); Calcium 9.3 mg/dL (8.4-10.2); Carbon Dioxide 31 mmol/L (22-30); Chloride 100 mmol/L (98-107); Estimated Glomerular Filt Rate > 60; Glucose 168 mg/dL (65-110); Potassium 4.2 mmol/L (3.4-5.0); Sodium 137 mmol/L (137-145)
[2025-03-26] MEDS: BUDESONIDE RESPULE NEB 0.5 MG/2 ML AMP INHALATION ×2 (07:40→20:30)
[2025-03-26] MEDS: guaiFENesin 12 HR 600 MG TABCR 1200 MG PO ×2 (08:12→20:05)
[2025-03-26] MEDS: FLUTICASONE PROPIONATE 0.05% NA SPR 16 GM BTL (*BKC) 2 SPRAY NASAL (08:13)
[2025-03-26] MEDS: ENOXAPARIN 40 MG/0.4 ML SYRINGE SUB-Q (08:15)
--- NOTE | 2025-03-26 09:42 | P.PNIM_ITS ---
Progress Note: A&P Assessment and Plan (1) Community acquired pneumonia: Qualifiers: Laterality: unspecified laterality Qualified Code(s): J18.9 - Pneumonia, unspecified organism Code(s): J18.9 - Pneumonia, unspecified organism Status: Acute Assessment and Plan: reoccurring pneumonia secondary to deviated septum pulmonology consulted pending recommendations IV Rocephin and doxy guaifenesin Robitussin incentive spirometer Dr. Muhammad available over the weekend by phone consult he recommends DuoNebs, Rocephin, doxycycline, Flonase and Claritin. 03/26 pt refused doxy as stated last tiem she took it, it made her foam at the mouth -discussed with DR Muhammad, will stop doxy and start azithromycin continue mucinex, IS, ambulation wean oxygen as tolerated (pt baseline o2 at night) - WBC trending down, contrinue to monitor (2) Nasal septal deviation: Code(s): J34.2 - Deviated nasal septum Status: Acute Assessment and Plan: causing hypoxia Recommending following up outpatient with ENT as this is been a chronic issue (3) Acute hypoxemic respiratory failure: Code(s): J96.01 - Acute respiratory failure with hypoxia Status: Acute Assessment and Plan: secondary to above (4) Polycythemia: Code(s): D75.1 - Secondary polycythemia Status: Acute Assessment and Plan: Chronic hypoxia versus dehydration versus both versus other CBC in a.m. (5) Hypertension: Qualifiers: Hypertension type: primary hypertension Qualified Code(s): I10 - Essential (primary) hypertension Code(s): I10 - Essential (primary) hypertension Status: Chronic Assessment and Plan: Continue lisinopril Time Spent With Patient Time with patient: 25 - 35 minutes Subjective Date/time seen: 03/26/25 09:42 Interval history: 64-year-old female with past medical history of severely deviated septum after a broken nose, home O2 2 L nasal cannula at night, presents the hospital with acute shortness of breath. Pt is justus nd examined. She reports that she has a deviated septum and awaiting surgery with her eNT. Currently on oxygen during the day and normally only wears it at night. Still reports cough and sob with any activity, able to bring phlegm up. NO n/v/d. Review of Systems Review of Systems: 12 systems were reviewed and are negative except for as per HPI. Exam Narrative: General: well appearing, appears stated age. HEENT: normocephalic, atraumatic. Mucous membranes moist. EOMI, PERRLA, bilateral sclera anicteric, no conjunctival injection. Neck supple without JVD, lymphadenopathy, or bruit. Respiratory: coarse, diminished to annemarie bases Cardiovascular: Regular rate and rhythm, normal S1-S2. No murmurs, rubs, or clicks. PMI is nondisplaced, capillary refill less than 3 second. Abdomen: Obese Soft, round, no pulsatile masses, nondistended and nontender. No rebound, no guarding. Bowel sounds present to all four quadrants. No high pitch or tinkling sounds, resonant to percussion. Extremities: No cyanosis, clubbing, or edema present. Pulses are palpable 2/2. Active ROM to all four extremities. Neuro: Alert and orientated x 4. PERRLA. Cranial nerves 2-12 intact without focal deficit. Skin: Warm, dry, and intact, without rash, erythema, or lesion. Psych: pleasant, cooperative, normal speech, normal affect, no hallucinations, no dysarthia Const: General: comfortable Objective Data Vital Signs Vital Signs: Vital Signs - 24 hr 03/25/25 10:32 03/25/25 10:33 03/25/25 10:33 Temperature 97.5 F L Pulse Rate 120 H 119 H 115 H Respiratory Rate 16 20 19 Blood Pressure 163/90 H 163/90 H Pulse Oximetry 95 94 95 Oxygen Delivery Nasal Cannula Oxygen Flow Rate 2 03/25/25 10:39 03/25/25 10:45 03/25/25 10:46 Temperature Pulse Rate 118 H 120 H Respiratory Rate 22 H 21 H Blood Pressure 156/95 H Pulse Oximetry 93 91 92 Oxygen Delivery Nasal Cannula Oxygen Flow Rate 2 03/25/25 11:10 03/25/25 11:15 03/25/25 11:30 Temperature Pulse Rate 114 H 115 H 114 H Respiratory Rate 20 21 H 21 H Blood Pressure Pulse Oximetry 91 93 91 Oxygen Delivery Oxygen Flow Rate 03/25/25 11:45 03/25/25 12:00 03/25/25 12:26 Temperature Pulse Rate 120 H 111 H 119 H Respiratory Rate 19 23 H 26 H Blood Pressure Pulse Oximetry 92 97 95 Oxygen Delivery Oxygen Flow Rate 03/25/25 12:30 03/25/25 12:45 03/25/25 13:15 Temperature Pulse Rate 121 H 117 H Respiratory Rate 21 H 19 Blood Pressure 135/90 Pulse Oximetry 93 94 Oxygen Delivery Oxygen Flow Rate 03/25/25 13:15 03/25/25 13:44 03/25/25 14:10 Temperature Pulse Rate 109 H 78 Respiratory Rate 23 H 16 Blood Pressure 138/74 123/78 Pulse Oximetry 93 93 93 Oxygen Delivery Oxymizer Oxygen Flow Rate 2 03/25/25 14:23 03/25/25 14:23 03/25/25 14:29 Temperature Pulse Rate 108 H 104 H Respiratory Rate 24 H 24 H Blood Pressure Pulse Oximetry 92 Oxygen Delivery Oxymizer Oxygen Flow Rate 2 03/25/25 14:49 03/25/25 16:00 03/25/25 20:00 Temperature 97.3 F L Pulse Rate 105 H 109 H Respiratory Rate 20 Blood Pressure 154/94 H Pulse Oximetry 93 92 Oxygen Delivery Oxymizer Oxygen Flow Rate 2 03/25/25 20:00 03/25/25 20:19 03/25/25 20:22 Temperature Pulse Rate 118 H 102 H Respiratory Rate 24 H Blood Pressure Pulse Oximetry 92 Oxygen Delivery Oxymizer Oxygen Flow Rate 2 03/25/25 20:35 03/25/25 22:00 03/26/25 00:00 Temperature 97 F L Pulse Rate 108 H 110 H 100 Respiratory Rate 22 H 20 Blood Pressure 143/72 H Pulse Oximetry 93 Oxygen Delivery Oxygen Flow Rate 03/26/25 01:59 03/26/25 02:07 03/26/25 04:00 Temperature Pulse Rate 104 H 108 H 109 H Respiratory Rate 22 H 22 H Blood Pressure Pulse Oximetry Oxygen Delivery Oxygen Flow Rate 03/26/25 06:00 03/26/25 07:42 03/26/25 07:42 Temperature 98.2 F Pulse Rate 100 110 H Respiratory Rate 20 20 Blood Pressure 127/78 Pulse Oximetry 94 90 Oxygen Delivery Oxymizer Oxygen Flow Rate 2 Intake/Output Intake/Output: Intake & Output 03/23/25 03/24/25 03/25/25 03/26/25 23:59 23:59 23:59 23:59 Intake Total 440 540 Balance 440 540 Meds/Results Medications: Active Medications Generic Name Dose Route Start Last Admin Trade Name Freq PRN Reason Stop Dose Admin Acetaminophen 650 mg 03/25/25 13:31 03/25/25 21:10 Acetaminophen 325 Mg Tablet PO 650 mg Q4H PRN Administration Mild Pain (1-3) or Fever Albuterol/Ipratropium 3 ml 03/25/25 14:00 03/26/25 07:40 Ipratropium 0.5 Mg/Albuterol Sulfate 2.5 Mg (Base) Ampul.Neb 3 Ml INHALATION 3 ml Q6HRT [facility] Administration Budesonide 0.5 mg 03/25/25 20:00 03/26/25 07:40 Budesonide Respule Neb 0.5 Mg/2 Ml Amp INHALATION 0.5 mg Q12HRT NIURKA Administration Docusate Sodium 100 mg 03/25/25 13:31 Docusate Sodium 100 Mg Capsule PO BID PRN Constipation Doxycycline Hyclate 100 mg 03/25/25 21:00 03/26/25 09:28 Doxycycline Hyclate 100 Mg Tablet PO Not Given Q12HR NIURKA Enoxaparin Sodium 40 mg 03/26/25 09:00 03/26/25 08:15 Enoxaparin 40 Mg/0.4 Ml Syringe SUB-Q 40 mg DAILY NIURKA Administration Fluticasone Propionate 2 spray 03/25/25 15:50 03/26/25 08:13 Fluticasone Propionate 0.05% Na Spr 16 Gm Btl (*Bkc) NASAL 2 spray QAM NIURKA Administration Guaifenesin 1,200 mg 03/25/25 21:00 03/26/25 08:12 Guaifenesin 12 Hr 600 Mg Tabcr PO 1,200 mg Q12HR NIURKA Administration Ceftriaxone Sodium 1 gm/ 50 mls @ 100 mls/hr 03/26/25 14:00 Sodium Chloride IVPB Q24H NIURKA Lisinopril 10 mg 03/25/25 21:00 03/25/25 20:49 Lisinopril 10 Mg Tablet PO 10 mg HS NIURKA Administration Loratadine 10 mg 03/25/25 15:50 03/26/25 09:26 Loratadine 10 Mg Tablet PO Not Given QAM [facility] Radiology Results: ITS Impressions Chest X-Ray 03/25/25 11:08 IMPRESSION: Grossly, there are no acute findings seen. Chest CTA 03/25/25 12:24 IMPRESSION: 1. Multifocal bilateral pneumonitis and/or airspace disease, progressed from December. 2. No PE identified. Labs Labs: Laboratory Results - last 24 hr 03/25/25 03/25/25 03/25/25 10:53 11:33 17:37 WBC 17.0 H RBC 6.03 H Hgb 16.2 H D Hct 51.7 H MCV 85.7 MCH 26.9 MCHC 31.3 L RDW 14.0 Plt Count 350 MPV 9.1 Immature Gran % (Auto) 0.2 Neut % (Auto) 64.3 Lymph % (Auto) 25.6 [place] % (Auto) 5.9 Eos % (Auto) 3.6 Baso % (Auto) 0.4 Lymph # (Auto) 4.36 H [place] # (Auto) 1.0 H Eos # (Auto) 0.6 H Baso # (Auto) 0.1 Abs Immat Gran (auto) 0.04 H Absolute Neuts (auto) 10.9 H Absolute Nucleated RBC 0.000 Nucleated RBC % 0.0 Puncture Site Left radial ABG pH 7.383 ABG pCO2 49.2 H ABG pO2 67.0 L ABG PO2/FiO2 Ratio 2.23 ABG HCO3 28.6 H ABG O2 Saturation 92.9 L ABG O2 Content 21.4 ABG Base Excess 2.6 A-a Gradient 89.1 Oxyhemoglobin 92.3 Total Hemoglobin 16.5 O2 Delivery Device Nasal cannula O2 Liters/Min 2.5 FiO2 30 Sodium 138 Potassium 4.3 Chloride 97 L Carbon Dioxide 32 H Anion Gap 9 BUN 13 D Creatinine 0.69 L Estim Creat Clear Calc Not Reportable Estimated GFR > 60 Glucose 143 H Calcium 9.0 Total Bilirubin 1.0 AST 26 ALT 16 Alkaline Phosphatase 118 Total Protein 8.7 H Albumin 4.5 Influenza A (RT-PCR) Negative Influenza B (RT-PCR) Negative RSV (RT-PCR) Negative SARS-CoV-2 RNA (RT-PCR) Negative 03/26/25 04:38 WBC 10.9 H RBC 5.38 Hgb 14.2 Hct 46.7 MCV 86.8 MCH 26.4 MCHC 30.4 L RDW 14.0 Plt Count 306 MPV 9.1 Immature Gran % (Auto) 0.5 Neut % (Auto) 85.9 H Lymph % (Auto) 11.5 L [place] % (Auto) 2.0 L Eos % (Auto) 0.0 Baso % (Auto) 0.1 L Lymph # (Auto) 1.25 [place] # (Auto) 0.2 Eos # (Auto) 0.0 Baso # (Auto) 0.0 Abs Immat Gran (auto) 0.05 H Absolute Neuts (auto) 9.3 H Absolute Nucleated RBC 0.000 Nucleated RBC % 0.0 Puncture Site ABG pH ABG pCO2 ABG pO2 ABG PO2/FiO2 Ratio ABG HCO3 ABG O2 Saturation ABG O2 Content ABG Base Excess A-a Gradient Oxyhemoglobin Total Hemoglobin O2 Delivery Device O2 Liters/Min FiO2 Sodium 137 Potassium 4.2 Chloride 100 Carbon Dioxide 31 H Anion Gap 6 BUN 17 Creatinine 0.63 L Estim Creat Clear Calc Not Reportable Estimated GFR > 60 Glucose 168 H Calcium 9.3 Total Bilirubin AST ALT Alkaline Phosphatase Total Protein Albumin Influenza A (RT-PCR) Influenza B (RT-PCR) RSV (RT-PCR) SARS-CoV-2 RNA (RT-PCR) Quality VTE Prophylaxis VTE prophylaxis: mechanical ordered and pharmacologic ordered
[2025-03-26] MEDS: AZITHROMYCIN 500 MG TABLET PO (10:15)
[2025-03-26] MEDS: cefTRIAXone 1 GM in SODIUM CHLORIDE 0.9% IV 50 ML 100 ML IVPB (14:03)
[2025-03-27] VITALS (20 sets, daily range): BP systolic 117–155; BP diastolic 60–67; PULSE 83–106; RESP 18–20; TEMP 36.1–36.7; O2SAT 92–95
[2025-03-27] MEDS: IPRATROPIUM 0.5 MG/ALBUTEROL SULFATE 2.5 MG (BASE) AMPUL.NEB 3 ML INHALATION ×4 (02:03→20:33)
[2025-03-27 05:43] LABS: Hematocrit 44.0 % (37.0-47.0); Hemoglobin 13.5 g/dL (12.0-15.0); Mean Corpuscular HGB Conc 30.7 g/dl (32-36); Mean Corpuscular Hemoglobin 26.6 pg (26-34); Mean Corpuscular Volume 86.8 fl (80-100); Platelet Count Result 299 k/mm3 (150-375); Red Blood Count 5.07 M/mm3 (4.2-5.4); White Blood Count 11.4 K/mm3 (4.5-10.0)
[2025-03-27 06:09] LABS: Anion Gap 4 mmol/L (4-12); Blood Urea Nitrogen 24 mg/dL (7-17); Calcium 8.3 mg/dL (8.4-10.2); Carbon Dioxide 30 mmol/L (22-30); Chloride 104 mmol/L (98-107); Estimated Glomerular Filt Rate > 60; Glucose 104 mg/dL (65-110); Potassium 4.2 mmol/L (3.4-5.0); Sodium 138 mmol/L (137-145)
--- NOTE | 2025-03-27 07:35 | P.PNIM_ITS ---
Progress Note: A&P Assessment and Plan (1) Community acquired pneumonia: Qualifiers: Laterality: unspecified laterality Qualified Code(s): J18.9 - Pneumonia, unspecified organism Code(s): J18.9 - Pneumonia, unspecified organism Status: Acute Assessment and Plan: Recurrent pneumonia, last admission 02/04-02/07. CXR there is no acute findings Chest CTA with multifocal bilateral pneumonitis and/or airspace disease, progressed from december - started on CAP tx: azithromycin ceftriaxone - Viral PCR: negative for Flu/COVID/RSV - Was placed on supplemental O2 on admission, however no documented hypoxia. Weaned to room air during assessment with stable saturations. Continue to monitor. - Continue Claritin, Flonase, and Mucinex - Scheduled duonebs q6H - Monitor vital signs, I&Os, neuro status and patient is a fall risk - Follow WBC, serum electrolytes, temperature curves and cultures - Continue 2L NC overnight, consider home O2 eval prior to discharge - Pulmonology consulted Per chart review, Dr. Muhammad available over the weekend by phone consult he recommended DuoNebs, Rocephin, doxycycline, Flonase and Claritin. 03/26 pt refused doxycycline, prior provider discussed with DR Muhammad,stopped doxycycline and started azithromycin (2) Nasal septal deviation: Code(s): J34.2 - Deviated nasal septum Status: Acute Assessment and Plan: Patient has extensive sinusitis and will require surgery per ENT per prior pulmonology note Recommending following up outpatient with ENT as this is been a chronic issue (3) Hypertension: Qualifiers: Hypertension type: primary hypertension Qualified Code(s): I10 - Essential (primary) hypertension Code(s): I10 - Essential (primary) hypertension Status: Chronic Assessment and Plan: Chronic, continue lisinopril 10 mg Blood pressures reviewed and stable, continue to monitor Time Spent With Patient Time with patient: 25 - 35 minutes Subjective Date/time seen: 03/27/25 07:35 Interval history: 64-year-old female with past medical history of morbid obesity, essential hypertension, chronic hypercapnia, deviated septum with nasal polyps, chronic respiratory failure on 2L NC night presents the hospital with acute shortness of breath. Patient is pleasant sitting up comfortably in bed with family at bedside. She was able to be weaned to room air during assessment. Patient states shortness of breath has improved since admission. She continues to endorse congestion. Denies associated cough. She states that she has been having increased weakness for past few days and decreased mobility. PT/OT ordered. She has no other complaints denying chest pain, palpitations, nausea/vomiting and abdominal pain. Review of Systems Review of Systems: All systems reviewed & are unremarkable except as noted in HPI and below Exam 2 Narrative: AF HR 106 RR 18 SPO2 94 RA BP 117/60 General: female in no acute respiratory distress who is nontoxic appearing, sitting up in bed. HEENT: Normocephalic. Atraumatic. Extraocular movement intact. Sclera clear and anicteric. No facial asymmetry. Chest: Lungs are diminished with mild coarseness to auscultation bilaterally. CV: Heart was regular rate and rhythm. Abd: Abdomen was soft. Nontender. Nondistended. Positive bowel sounds. Ext: No clubbing, cyanosis, or edema. DP pulses bilaterally. Neuro: Patient is alert. Speech is clear. Objective Data Vital Signs Vital Signs: Vital Signs - 24 hr 03/26/25 07:42 03/26/25 07:42 03/26/25 07:50 Temperature Pulse Rate 110 H 106 H Respiratory Rate 20 20 Blood Pressure Pulse Oximetry 90 Oxygen Delivery Oxymizer Oxygen Flow Rate 2 03/26/25 08:00 03/26/25 12:00 03/26/25 14:00 Temperature 97.9 F Pulse Rate 110 H 110 H 102 H Respiratory Rate 20 Blood Pressure 121/69 Pulse Oximetry 95 Oxygen Delivery Oxygen Flow Rate 03/26/25 14:31 03/26/25 14:39 03/26/25 16:00 Temperature Pulse Rate 98 100 92 Respiratory Rate 20 20 Blood Pressure Pulse Oximetry Oxygen Delivery Oxygen Flow Rate 03/26/25 20:00 03/26/25 20:00 03/26/25 20:31 Temperature Pulse Rate 95 94 Respiratory Rate 18 Blood Pressure Pulse Oximetry 95 Oxygen Delivery Oxymizer Oxygen Flow Rate 2 03/26/25 20:34 03/26/25 20:39 03/26/25 22:00 Temperature 97.2 F L Pulse Rate 96 97 Respiratory Rate 18 20 Blood Pressure 130/60 Pulse Oximetry 97 95 Oxygen Delivery Oxymizer Oxygen Flow Rate 2 03/27/25 00:00 03/27/25 02:03 03/27/25 02:09 Temperature Pulse Rate 92 95 94 Respiratory Rate 18 18 Blood Pressure Pulse Oximetry Oxygen Delivery Oxygen Flow Rate 03/27/25 04:00 03/27/25 06:00 Temperature 97 F L Pulse Rate 83 91 Respiratory Rate 20 Blood Pressure 117/60 Pulse Oximetry 95 Oxygen Delivery Oxygen Flow Rate Intake/Output Intake/Output: Intake & Output 03/24/25 03/25/25 03/26/25 03/27/25 23:59 23:59 23:59 23:59 Intake Total 440 1680 200 Balance 440 1680 200 Meds/Results Medications: Active Medications Generic Name Dose Route Start Last Admin Trade Name Freq PRN Reason Stop Dose Admin Acetaminophen 650 mg 03/25/25 13:31 03/25/25 21:10 Acetaminophen 325 Mg Tablet PO 650 mg Q4H PRN Administration Mild Pain (1-3) or Fever Albuterol/Ipratropium 3 ml 03/25/25 14:00 03/27/25 02:03 Ipratropium 0.5 Mg/Albuterol Sulfate 2.5 Mg (Base) Ampul.Neb 3 Ml INHALATION 3 ml Q6HRT NIURKA Administration Azithromycin 500 mg 03/26/25 09:45 03/26/25 10:15 Azithromycin 500 Mg Tablet PO 03/28/25 09:01 500 mg DAILY NIURKA Administration Budesonide 0.5 mg 03/25/25 20:00 03/26/25 20:30 Budesonide Respule Neb 0.5 Mg/2 Ml Amp INHALATION 0.5 mg Q12HRT NIURKA Administration Docusate Sodium 100 mg 03/25/25 13:31 Docusate Sodium 100 Mg Capsule PO BID PRN Constipation Enoxaparin Sodium 40 mg 03/26/25 09:00 03/26/25 08:15 Enoxaparin 40 Mg/0.4 Ml Syringe SUB-Q 40 mg DAILY NIURKA Administration Fluticasone Propionate 2 spray 03/25/25 15:50 03/26/25 08:13 Fluticasone Propionate 0.05% Na Spr 16 Gm Btl (*Bkc) NASAL 2 spray QAM NIURKA Administration Guaifenesin 1,200 mg 03/25/25 21:00 03/26/25 20:05 Guaifenesin 12 Hr 600 Mg Tabcr PO 1,200 mg Q12HR NIURKA Administration Ceftriaxone Sodium 1 gm/ 50 mls @ 100 mls/hr 03/26/25 14:00 03/26/25 14:33 Sodium Chloride IVPB Infused Q24H NIURKA Infusion Lisinopril 10 mg 03/25/25 21:00 03/26/25 20:05 Lisinopril 10 Mg Tablet PO 10 mg HS NIURKA Administration Loratadine 10 mg 03/25/25 15:50 03/26/25 09:26 Loratadine 10 Mg Tablet PO Not Given QAM [facility] Radiology Results: ITS Impressions Chest X-Ray 03/25/25 11:08 IMPRESSION: Grossly, there are no acute findings seen. Chest CTA 03/25/25 12:24 IMPRESSION: 1. Multifocal bilateral pneumonitis and/or airspace disease, progressed from December. 2. No PE identified. Labs Labs: Laboratory Results - last 24 hr 03/25/25 03/27/25 17:31 05:16 WBC 11.4 H RBC 5.07 Hgb 13.5 Hct 44.0 MCV 86.8 MCH 26.6 MCHC 30.7 L RDW 14.4 Plt Count 299 MPV 9.1 Sodium 138 Potassium 4.2 Chloride 104 Carbon Dioxide 30 Anion Gap 4 BUN 24 H Creatinine 0.70 Estim Creat Clear Calc Not Reportable Estimated GFR > 60 Glucose 104 Calcium 8.3 L Chlamy pneumoniae PCR Not detected Adenovirus (PCR) Not detected B. pertussis DNA (PCR) Not detected B.parapertussis DNA PCR Not detected Coronavirus OC43 (PCR) Not detected Coronavirus HKU1 (PCR) Not detected Coronavirus 229E (PCR) Not detected Coronavirus NL63 (PCR) Not detected Human Metapneumovir PCR Not detected Influenza A (H1) PCR Not detected Influ A (H1/09) PCR Not detected Influenza A (H3) PCR Not detected Influenza Type A (PCR) Not detected Influenza Type B (PCR) Not detected M. pneumoniae (PCR) Not detected Parainfluenza 1 (PCR) Not detected Parainfluenza 2 (PCR) Not detected Parainfluenza 3 (PCR) Not detected Parainfluenza 4 (PCR) Not detected RSV (PCR) Not detected Entero/Rhino (PCR) Not detected SARS-CoV-2 (PCR) Not detected Quality VTE Prophylaxis VTE prophylaxis: mechanical ordered and pharmacologic ordered
[2025-03-27] MEDS: guaiFENesin 12 HR 600 MG TABCR 1200 MG PO ×2 (08:09→21:53)
[2025-03-27] MEDS: LORATADINE 10 MG TABLET PO (08:09)
[2025-03-27] MEDS: AZITHROMYCIN 500 MG TABLET PO (08:10)
[2025-03-27] MEDS: FLUTICASONE PROPIONATE 0.05% NA SPR 16 GM BTL (*BKC) 2 SPRAY NASAL (08:10)
[2025-03-27] MEDS: ENOXAPARIN 40 MG/0.4 ML SYRINGE SUB-Q (08:10)
[2025-03-27] MEDS: BUDESONIDE RESPULE NEB 0.5 MG/2 ML AMP INHALATION ×2 (09:21→20:32)
[2025-03-27] MEDS: cefTRIAXone 1 GM in SODIUM CHLORIDE 0.9% IV 50 ML 100 ML IVPB (13:47)
[2025-03-28] VITALS (14 sets, daily range): BP systolic 134; BP diastolic 75; PULSE 90–120; RESP 18; TEMP 36.6; O2SAT 93–95
[2025-03-28] MEDS: IPRATROPIUM 0.5 MG/ALBUTEROL SULFATE 2.5 MG (BASE) AMPUL.NEB 3 ML INHALATION ×2 (01:51→07:45)
[2025-03-28 04:50] LABS: Hematocrit 43.6 % (37.0-47.0); Hemoglobin 13.2 g/dL (12.0-15.0); Mean Corpuscular HGB Conc 30.3 g/dl (32-36); Mean Corpuscular Hemoglobin 26.7 pg (26-34); Mean Corpuscular Volume 88.1 fl (80-100); Platelet Count Result 270 k/mm3 (150-375); Red Blood Count 4.95 M/mm3 (4.2-5.4); White Blood Count 9.2 K/mm3 (4.5-10.0)
[2025-03-28 04:57] LABS: Anion Gap 6 mmol/L (4-12); Blood Urea Nitrogen 19 mg/dL (7-17); Calcium 8.5 mg/dL (8.4-10.2); Carbon Dioxide 30 mmol/L (22-30); Chloride 104 mmol/L (98-107); Estimated Glomerular Filt Rate > 60; Glucose 102 mg/dL (65-110); Potassium 3.9 mmol/L (3.4-5.0); Sodium 140 mmol/L (137-145)
--- NOTE | 2025-03-28 07:04 | P.PNIM_ITS ---
Progress Note: A&P Assessment and Plan (1) Community acquired pneumonia: Qualifiers: Laterality: unspecified laterality Qualified Code(s): J18.9 - Pneumonia, unspecified organism Code(s): J18.9 - Pneumonia, unspecified organism Status: Acute Assessment and Plan: Recurrent pneumonia, last admission 02/04-02/07. CXR there is no acute findings Chest CTA with multifocal bilateral pneumonitis and/or airspace disease, progressed from december - started on CAP tx: azithromycin ceftriaxone - Viral PCR: negative for Flu/COVID/RSV - Was placed on supplemental O2 on admission, however no documented hypoxia. Weaned to room air during assessment with stable saturations. Continue to monitor. - Continue Claritin, Flonase, and Mucinex - Scheduled duonebs q6H - Monitor vital signs, I&Os, neuro status and patient is a fall risk - Follow WBC, serum electrolytes, temperature curves and cultures - Continue 2L NC overnight, consider home O2 eval prior to discharge - Pulmonology consulted Per chart review, Dr. Muhammad available over the weekend by phone consult he recommended DuoNebs, Rocephin, doxycycline, Flonase and Claritin. 03/26 pt refused doxycycline, prior provider discussed with DR Muhammad,stopped doxycycline and started azithromycin (2) Nasal septal deviation: Code(s): J34.2 - Deviated nasal septum Status: Acute Assessment and Plan: Patient has extensive sinusitis and will require surgery per ENT per prior pulmonology note Recommending following up outpatient with ENT as this is been a chronic issue (3) Hypertension: Qualifiers: Hypertension type: primary hypertension Qualified Code(s): I10 - Essential (primary) hypertension Code(s): I10 - Essential (primary) hypertension Status: Chronic Assessment and Plan: Chronic, continue lisinopril 10 mg Blood pressures reviewed and stable, continue to monitor Time Spent With Patient Time with patient: 25 - 35 minutes Subjective Date/time seen: 03/28/25 07:04 Interval history: 64-year-old female with past medical history of morbid obesity, essential hypertension, chronic hypercapnia, deviated septum with nasal polyps, chronic respiratory failure on 2L NC night presents the hospital with acute shortness of breath. Review of Systems Review of Systems: All systems reviewed & are unremarkable except as noted in HPI and below Exam Narrative: AF HR General: female in no acute respiratory distress who is nontoxic appearing, sitting up in bed. HEENT: Normocephalic. Atraumatic. Extraocular movement intact. Sclera clear and anicteric. No facial asymmetry. Chest: Lungs are diminished with mild coarseness to auscultation bilaterally. CV: Heart was regular rate and rhythm. Abd: Abdomen was soft. Nontender. Nondistended. Positive bowel sounds. Ext: No clubbing, cyanosis, or edema. DP pulses bilaterally. Neuro: Patient is alert. Speech is clear. Objective Data Vital Signs Vital Signs: Vital Signs - 24 hr 03/27/25 08:00 03/27/25 09:26 03/27/25 09:30 Temperature Pulse Rate 88 92 Respiratory Rate 18 Blood Pressure Pulse Oximetry 94 Oxygen Delivery Oxymizer Oxygen Flow Rate 2 03/27/25 09:31 03/27/25 09:47 03/27/25 10:35 Temperature Pulse Rate 96 106 H Respiratory Rate 18 Blood Pressure Pulse Oximetry 94 92 Oxygen Delivery Room Air Oxygen Flow Rate 03/27/25 12:00 03/27/25 13:33 03/27/25 14:20 Temperature 97.6 F Pulse Rate 95 102 H 101 H Respiratory Rate 18 18 Blood Pressure 132/67 Pulse Oximetry 95 Oxygen Delivery Oxygen Flow Rate 03/27/25 14:28 03/27/25 16:00 03/27/25 20:00 Temperature Pulse Rate 100 94 Respiratory Rate 18 Blood Pressure Pulse Oximetry Oxygen Delivery Room Air Oxygen Flow Rate 03/27/25 20:00 03/27/25 20:34 03/27/25 20:44 Temperature Pulse Rate 98 90 88 Respiratory Rate 18 18 Blood Pressure Pulse Oximetry Oxygen Delivery Oxygen Flow Rate 03/27/25 21:17 03/28/25 00:00 03/28/25 01:52 Temperature 98.1 F Pulse Rate 103 H 96 90 Respiratory Rate 18 18 Blood Pressure 155/66 H Pulse Oximetry 93 Oxygen Delivery Oxygen Flow Rate 03/28/25 01:59 03/28/25 02:00 03/28/25 04:00 Temperature Pulse Rate 94 92 Respiratory Rate 18 Blood Pressure Pulse Oximetry 94 Oxygen Delivery Room Air Oxygen Flow Rate 03/28/25 05:36 Temperature 97.8 F Pulse Rate 93 Respiratory Rate 18 Blood Pressure 134/75 Pulse Oximetry 93 Oxygen Delivery Oxygen Flow Rate Intake/Output Intake/Output: Intake & Output 03/25/25 03/26/25 03/27/25 03/28/25 23:59 23:59 23:59 23:59 Intake Total 440 1679 2019 400 Balance 440 1680 2019 400 Meds/Results Medications: Active Medications Generic Name Dose Route Start Last Admin Trade Name Freq PRN Reason Stop Dose Admin Acetaminophen 650 mg 03/25/25 13:31 03/25/25 21:10 Acetaminophen 325 Mg Tablet PO 650 mg Q4H PRN Administration Mild Pain (1-3) or Fever Albuterol/Ipratropium 3 ml 03/25/25 14:00 03/28/25 01:51 Ipratropium 0.5 Mg/Albuterol Sulfate 2.5 Mg (Base) Ampul.Neb 3 Ml INHALATION 3 ml Q6HRT NIURKA Administration Azithromycin 500 mg 03/26/25 09:45 03/27/25 08:10 Azithromycin 500 Mg Tablet PO 03/28/25 09:01 500 mg DAILY NIURKA Administration Budesonide 0.5 mg 03/25/25 20:00 03/27/25 20:32 Budesonide Respule Neb 0.5 Mg/2 Ml Amp INHALATION 0.5 mg Q12HRT NIURKA Administration Docusate Sodium 100 mg 03/25/25 13:31 Docusate Sodium 100 Mg Capsule PO BID PRN Constipation Enoxaparin Sodium 40 mg 03/26/25 09:00 03/27/25 08:10 Enoxaparin 40 Mg/0.4 Ml Syringe SUB-Q 40 mg DAILY NIURKA Administration Fluticasone Propionate 2 spray 03/25/25 15:50 03/27/25 08:10 Fluticasone Propionate 0.05% Na Spr 16 Gm Btl (*Bkc) NASAL 2 spray QAM NIURKA Administration Guaifenesin 1,200 mg 03/25/25 21:00 03/27/25 21:53 Guaifenesin 12 Hr 600 Mg Tabcr PO 1,200 mg Q12HR NIURKA Administration Ceftriaxone Sodium 1 gm/ 50 mls @ 100 mls/hr 03/26/25 14:00 03/27/25 14:17 Sodium Chloride IVPB Infused Q24H NIURKA Infusion Lisinopril 10 mg 03/25/25 21:00 03/27/25 21:52 Lisinopril 10 Mg Tablet PO 10 mg HS NIURKA Administration Loratadine 10 mg 03/25/25 15:50 03/27/25 08:09 Loratadine 10 Mg Tablet PO 10 mg QAM NIURKA Administration Radiology Results: ITS Impressions Chest X-Ray 03/25/25 11:08 IMPRESSION: Grossly, there are no acute findings seen. Chest CTA 03/25/25 12:24 IMPRESSION: 1. Multifocal bilateral pneumonitis and/or airspace disease, progressed from December. 2. No PE identified. Labs Labs: Laboratory Results - last 24 hr 03/28/25 04:16 WBC 9.2 RBC 4.95 Hgb 13.2 Hct 43.6 MCV 88.1 MCH 26.7 MCHC 30.3 L RDW 14.6 H Plt Count 270 MPV 9.3 Sodium 140 Potassium 3.9 Chloride 104 Carbon Dioxide 30 Anion Gap 6 BUN 19 H Creatinine 0.69 L Estim Creat Clear Calc Not Reportable Estimated GFR > 60 Glucose 102 Calcium 8.5 Quality VTE Prophylaxis VTE prophylaxis: mechanical ordered and pharmacologic ordered
[2025-03-28] MEDS: BUDESONIDE RESPULE NEB 0.5 MG/2 ML AMP INHALATION (07:45)
[2025-03-28 07:56] LABS: NT Pro B Type Natriuretic Pept 63 pg/mL (19.9-100)
[2025-03-28] MEDS: guaiFENesin 12 HR 600 MG TABCR 1200 MG PO (08:21)
[2025-03-28] MEDS: FLUTICASONE PROPIONATE 0.05% NA SPR 16 GM BTL (*BKC) 2 SPRAY NASAL (08:21)
[2025-03-28] MEDS: LORATADINE 10 MG TABLET PO (08:21)
[2025-03-28] MEDS: AZITHROMYCIN 500 MG TABLET PO (08:21)
[2025-03-28] MEDS: ENOXAPARIN 40 MG/0.4 ML SYRINGE SUB-Q (08:21)
[2025-03-28 08:44] LABS: Procalcitonin 0.0 ng/mL
--- NOTE | 2025-03-28 11:31 | PCRCNOTE ---
Home O2 eval done, no change from current home O2 settings, 2 l nocturnal only.
--- NOTE | 2025-03-28 11:47 | P.CONPL_ITS ---
Assessment and Plan Assessment and plan (1) Chronic sinusitis: Code(s): J32.9 - Chronic sinusitis, unspecified Status: Acute Assessment and Plan: Regarding her chronic sinusitis she has declined Flonase, antihistamines, ipratropium nasal spray in the past. She has been followed by ENT and was last seen on 01/19/[address] scan of the sinuses showed moderate pansinusitis. She was prescribed Bactrim and recommended to have bilateral frontal sinus balloon dilation, bilateral complete ethmoidectomy, bilateral maxillary antrostomy, bilateral inferior turbinate submucous resection , and septoplasty. despite me reminding her to call ENT since 01/19/2025 she has not done this. P.r.n. she will take Sudafed at home. 03/28/2025: Today the patient tells me that her sinuses are 50% back to her normal. Her breathing is back to her normal and she has no rest shortness of breath and her dyspnea on exertion when she walks to the bathroom is improved. Her room air saturations are 95%. Her white blood cell count is 9.2, creatinine is 0.69. Procalcitonin is 0.0, BNP is 63. She tells me she is ready for discharge. Regarding her chronic sinusitis the patient has never had a reliable trial of antihistamine and entered nasal corticosteroids because she has been reluctant to this treatment. She now agrees to this treatment as an improved on Flonase, Claritin, guaifenesin and ceftriaxone and azithromycin. Patient tells me she is ready for discharge and she can be discharged on these pulmonary medications: Azithromycin 250 mg p.o. q.day x3 days last dose 04/01/2025 Ipratropium nebulizer 0.5 mg q.6 hours Budesonide 500 mcg nebulized b.i.d. Claritin 10 mg a day Flonase 2 sprays each nostril twice a day Guaifenesin 1200 mg p.o. b.i.d. Oxygen 2 L at night. No oxygen at rest or with activity per formal home O2 assessment which was performed on 03/28/2025. Follow-up in the Pulmonary Clinic on 04/04/2025 at 11:30 a.m.. I have told the patient she must follow-up with ENT as an outpatient. I have told the patient she must follow-up with a dentist for teeth removal in the future. Discussed with Jamee Cardenas, will sign off, call with questions (2) Community acquired pneumonia: Qualifiers: Laterality: unspecified laterality Qualified Code(s): J18.9 - Pneumonia, unspecified organism Code(s): J18.9 - Pneumonia, unspecified organism Status: Acute Assessment and Plan: Patient with a CT scan with improving right upper lobe infiltrates compared to 12/12/2024 and continued left upper lobe infiltrates. Serologies for autoimmune and connective tissue disorder have been negative. Of note, given her chronic sinus disease she has a negative ANCA screen. Patient states her symptoms are start with her sinuses and then progressed down words into her chest. Will aggressively treat her sinus disease as above. 03/28/25: will discharge patient on azithromycin 250 mg p.o. q.day times another 3 days. (3) Reactive airway disease: Code(s): J45.909 - Unspecified asthma, uncomplicated Status: Acute Assessment and Plan: 03/28/25: Previous PFTs demonstrate prism with no bronchodilator response. Patient states that DuoNebs to help her while in the hospital. In the past she has not tolerated beta agonist I will discharge her on nebulized ipratropium and nebulized budesonide. History of Present Illness History of Present Illness Consult date: 03/28/25 Chief complaint: ACUTE HYPOXIC RESPIRATORY FAILURE,CAP Narrative: 03/28/2025: This is a new pulmonary consult for reactive airways disease, chronic sinusitis. Patient was last seen in the pulmonary clinic by myself on 03/08/2025 for follow-up for pneumonia, chronic sinusitis and daytime hypersomnia. She has had 3 pneumonias on 10/29/2024, 12/16/2024 and 02/05/2025. She is admitted treated with IV antibiotics and improves. She goes home finishing a course of oral levofloxacin on 12/16/2024 and 02/05/2025 and does well until she stops taking her antibiotics. She then developed sinus congestion and will worsening postnasal drip followed by respiratory symptoms. Regarding her chronic dyspnea on exertion she had PFTs with prism, no significant bronchodilator response, hyperinflation and normal DLCO that was increased when adjusted for alveolar volume. She is a never smoker. She did say that bronchodilators help her but she cannot tolerate short-acting or long-acting beta agonists and I gave her therapeutic trial of nebulized ipratropium and nebulized budesonide 500 twice a day. Regarding her chronic sinusitis she has declined Flonase, antihistamines, ipratropium nasal spray in the past. She has been followed by ENT and was last seen on 01/19/[address] scan of the sinuses showed moderate pansinusitis. She was prescribed Bactrim and recommended to have bilateral frontal sinus balloon dilation, bilateral complete ethmoidectomy, bilateral maxillary antrostomy, bilateral inferior turbinate submucous resection , and septoplasty. despite me reminding her to call ENT since 01/19/2025 she has not done this. P.r.n. she will take Sudafed at home. Patient has very poor dentition with sore cracked and rotten teeth and has not made it appointment with a dentist despite multiple reminders by myself. She says the teeth cost sinus pain and congestion as well. 02/07/2025:? Rheumatoid factor less than 12, anti CCP antibody 17, GALILEA screen borderline positive at 1:80, anti DNA DS antibody negative, DUMPLING MACHINE OPERATOR antibody, Zayas antibody, Zayas-DUMPLING MACHINE OPERATOR antibodies, anti scleroderma 70 antibodies, anti SSA, anti SSB, anti chromatin antibodies, anti ribosomal P antibodies, anti Rosie 1 antibodies, anti centromere B antibodies all negative.? C Anca antibody negative, atypical p-ANCA antibody negative, p-ANCA antibody negative. ?Aldolase 4.2, negative, total CPK 40, hypersensitivity pneumonitis panel negative.? Myositis panel negative. 02/05/2025:? Total IgG = 1270.? IgG subclass 1 = 695.? IgG subclass 2 = 382.? IgG subclass 3 = 46.? IgG subclass 4 = 75. All normal. Total IgG 1266.? Total IgA 434 (elevated), total IgM 66.? Total IgE 50.? IgA elevated and others are normal. 02/11/25:? Referral placed to Allergy and immunology, Dr. Kong, for recurrent sinusitis, pulmonary infections and only 2 of 23 strep pneumonia titers positive. We confirmed Dr. Maddox office has all the appropriate documentation and they are waiting on the patient to call them to make an appointment and she is still not done this despite multiple reminders. 03/21/2025 patient developed worsening sinus congestion with worsening postnasal drip, no fever, chills, rigors or dyspnea on exertion. She took Sudafed p.r.n.. She did try some nebulizers at home on the and states that after 2 doses of ipratropium nebulizer she felt that her shortness of breath was worsened she had a fast heart rate. On 03/25/2025 patient developed worsening shortness of breath without fever, chills in the same postnasal drip. Patient was seen in the emergency department with a white blood cell count 70 moist 0, 2.5 L nasal cannula ABG 7.38/49/67. CT angiogram of the chest showed no PE and compared to 12/12/2024 the right upper lobe infiltrates and improved and the left upper lobe infiltrates were worse. Patient was admitted to the hospital and treated with ceftriaxone, azithromycin, DuoNebs and budesonide nebulizer. She was also in agreement to Claritin 10 a day, Flonase 2 sprays each nostril twice a day and guaifenesin 1200 p.o. b.i.d.. 03/28/2025: Today the patient tells me that her sinuses are 50% back to her normal. Her breathing is back to her normal and she has no rest shortness of breath and her dyspnea on exertion when she walks to the bathroom is improved. Her room air saturations are 95%. Her white blood cell count is 9.2, creatinine is 0.69. Procalcitonin is 0.0, BNP is 63. She tells me she is ready for discharge. DATA: 03/28/2025: Home O2 assessment: Rest room air saturation 95%. Exercise room air saturation 93%. Patient ambulated 122 meters. Patient requires no oxygen at rest and no with activity. 03/25/25: CTA CHEST CLINICAL HISTORY: shortness of breath, tachy, r/o pe . COMPARISON: Chest x-ray today CTA chest 12/12/2024 TECHNIQUE: Helical CTA performed from thoracic inlet to upper abdomen IV contrast information not listed in PACS Coronal, sagittal reformats. Multiplanar MIPS CT images acquired with automatic exposure control for dose reduction DLP: 757 mGy-cm FINDINGS: Respiratory motion artifact could obscure small PE. Pulmonary arteries: No PE identified. Thoracic Aorta: No dissection or aneurysm. Heart/pericardium: Unremarkable. RV/LV ratio: Normal. Lungs/Pleura: Scattered foci bilateral airspace disease, worst right upper lobe. Tracheobronchial tree: Patent. Nodes: No enlarged nodes. Small mediastinal and hilar nodes Bones: No acute bony abnormality. Soft tissues: Unremarkable. Visualized upper abdomen: Cirrhosis, hepatomegaly, steatosis. Gallstones. IMPRESSION: 1. Multifocal bilateral pneumonitis and/or airspace disease, progressed from December. 2. No PE identified. 02/07/2025:? Rheumatoid factor less than 12, , anti CCP antibody 17, Anca screen borderline at positive 1:80, anti DNA DS antibody negative, DUMPLING MACHINE OPERATOR antibody, Zayas antibody, Zayas-DUMPLING MACHINE OPERATOR antibodies, anti scleroderma 70 antibodies, anti SSA, anti SSB, anti chromatin antibodies, anti ribosomal P antibodies, anti Rosie 1 antibodies, anti centromere B antibodies all negative.? C Anca antibody negative, atypical p-ANCA antibody negative, p-ANCA antibody negative.? Aldolase 4.2, negative, total CPK 40, hypersensitivity pneumonitis panel negative.? Myositis panel pending. 02/05/2025:? Total IgG = 1270.? IgG subclass 1 = 695.? IgG subclass 2 = 382.? IgG subclass 3 = 46.? IgG subclass 4 = 75. All normal. Total IgG 1266.? Total IgA 434 (elevated), total IgM 66.? Total IgE 50.? IgA elevated and others are normal. 01/21/25:? Strep pneumonia titers:? Strep pneumonia 2 = 2.8 (positive greater than 1.3).? Strep pneumonia 14= 2.8, (positive greater than 1.3).? Strep pneumonia 1, 3, 4, 5, 8, 9, 12, 17, 19, 20, 22, 23, 26, 34, 43, 51, 54, 56, 57, 68, and 70 all are low. On 12/14/2024:? Total IgG 1248, total IgA 425.? Total IgM 63. --------- 02/05/25: EXAMINATION: CT diagnostic chest dominick baldwin, 02/05/2025 12:50 CDT HISTORY: pneumonia COMPARISON: No comparisons available. TECHNIQUE: CT scan of the chest was performed without IV contrast. One or more of the following dose reduction techniques were used: automated exposure control, adjustment of the mA and/or kV according to patient size, use of iterative reconstruction technique. FINDINGS: No significant coronary calcification is present ([id number]) LUNGS: No tracheomalacia. No bronchiectasis. Minimal emphysematous changes. Minimal pulmonary fibrotic changes. There are bilateral groundglass attenuation infiltrates with mild associated bronchial wall thickening most marked involving the upper lobes. Elevation noted of the right hemidiaphragm. HEART AND PERICARDIUM: Within normal limits. AORTA: Normal caliber aorta. ADENOPATHY/MEDIASTINUM: None. LIMITED VIEWS OF THE ABDOMEN: Cholelithiasis. OSSEOUS STRUCTURES: No acute osseous abnormality.No suspicious lesions. OVERLYING SOFT TISSUES: Unremarkable. THYROID: The thyroid is unremarkable. IMPRESSION: Mild bilateral bronchopneumonia 12/16/24: Patient had an overnight oximetry on 2 L with recording duration 6 hours and 29 minutes. Average saturation 94%. Low saturation 88%. Time with saturation less than or equal to 88% was 0 minutes. Oxygen desaturation index 1.5. 12/15/24: Patient had an overnight oximetry on room air with recording duration of 7 hours and 22 minutes. Average saturation 89%. Low saturation 81%. Time with saturation less than or equal to 88% was 153 minutes. Oxygen desaturation index 6.2. 12/15/24: Echo Summary 1. Definity contrast administered improved wall motion interpretation. 2. Left ventricular chamber dimension is normal. 3. Left ventricular systolic function is normal, estimated at 65-70. 4. There is mild concentric increased left ventricular wall thickness. 5. The left ventricular diastolic function is grade I diastolic dysfunction. 6. E/e' 11 is mildly elevated. 7. Dilated inferior vena cava with >50% collapse upon inspiration consistent with elevated right atrial pressure, 10 mmHg. Left Ventricle E/e' 11 is mildly elevated. Left ventricular chamber dimension is normal. Left ventricular systolic function is normal, estimated at 65-70. There is mild concentric increased left ventricular wall thickness. The left ventricular diastolic function is grade I diastolic dysfunction. Definity contrast administered improved wall motion interpretation. Right Ventricle Right ventricular chamber dimension is not well visualized. Left Atria Left atrial chamber dimension is normal. Right Atria Right atrial chamber dimension is normal. DATE: 12/12/2024 18:37 EXAMINATION: CTA chest PE protocol INDICATION: hypoxia, tachy, recent hospitalization COMPARISON: None. FINDINGS: Lung parenchyma and airways: Considerable motion artifact. Calcified right lower lobe granuloma. Subsegmental areas of peribronchovascular consolidation and groundglass in the bilateral upper lobes. Pleura: Unremarkable. Thoracic inlet, axillae and chest wall: Unremarkable. Thoracic aorta: No significant dilation. No dissection. Minimal arch calcification. Mediastinum: Dilated central pulmonary arteries. Calcified nodes. Heart and pericardium: Normal. Coronary artery calcifications: Absent. Upper abdomen: Cholelithiasis, without inflammatory change. Small hiatal hernia. Mild bilateral renal cortical thinning and scarring. Bones: No acute osseous finding. Pulmonary arteries: Study quality: Significant motion artifact, beam hardening, and quantum mottle limits this study. Nondiagnostic imaging of the subsegmental pulmonary arteries. No central or definite segmental pulmonary emboli detected. IMPRESSION: Limited examination. No central embolus. No definite segmental embolus noting that evaluation is somewhat limited. Nondiagnostic imaging of the subsegmental pulmonary arteries. Upper lobe opacities may represent edema or infection. Review of Systems 2 Constitutional: Constitutional: Reports no additional constitutional complaints Eyes: Eyes: Reports no additional eye complaints ENT: Reports system reviewed and no additional complaints, except as documented Cardiovascular: Cardiovascular: Reports no additional cardiovascular complaints Respiratory: Respiratory: Reports no additional respiratory complaints Gastrointestinal: Gastrointestinal: Reports no additional gastrointestinal complaints Musculoskeletal: Musculoskeletal: Reports no additional musculoskeletal complaints Neurologic: Reports system reviewed and no additional complaints, except as documented Psychiatric: Psychiatric: Reports no additional psychiatric complaints Endocrine: Endocrine: Reports no additional endocrine complaints Hematologic/Lymphatic: Hematologic/Lymphatic: Reports no additional hematologic/lymphatic complaints Allergic/Immunologic: Allergic/Immunologic: Reports no additional allergic/immunologic complaints [facility] Past Medical History Medical History (Updated 03/25/25 @ 18:48 by Edgardo Hernandez DO) Hypoxemia requiring supplemental oxygen Polycythemia Nasal septal deviation Nasal mucosa dry Morbid obesity with BMI of 50.0-59.9, adult Hypertension Maxillary sinus polyp Surgical History Surgical History H/O: hysterectomy History of appendectomy Family History Family History (Updated 03/25/25 @ 14:54 by Christine Hurtado RN) Mother Diabetes mellitus Heart attack Hypertension Cerebrovascular accident Sibling Acute myocardial infarction Father Prostate carcinoma Grandparent Congestive heart failure Hypertension Social History Social History Social History: She is 1 of 10 children. Her and her younger brother live together. She is single and never been and does not have any children. 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 She denies any history of alcohol, tobacco or illicit substance use. Code status: Full code Surrogate decision maker: Dora Peres (sister) Caffeine-green tea, occasional soda Smoking status: Never smoker Second hand tobacco smoke exposure: No Alcohol intake: never Substance use: never Substance use type: does not use Do You Feel Safe in your Home?: Yes Lack of Transportation: No Lack of Food: Never True Current Housing: I Have Housing Concerned About Future Housing: No Difficulty Paying Gas/Electric Bills: No Difficulty Paying for Meds: No Currently Unemployed: No Education: Associate Degree Difficulty w/ Childcare or Family Care: No Spiritual care concerns: No Meds Home Medications and Allergies Home Medications ?Medication ?Instructions ?Recorded ?Confirmed ?Type lisinopril 20 mg tablet 10 mg PO HS 10/26/24 5 History budesonide 0.5 mg/2 mL suspension 0.5 mg (2 mL) inhala tion Q12HRT 02/07/25 03/25/25 Rx for nebulization (Pulmicort) #60 mL guaifenesin 600 mg tablet, 1,200 mg (2 x 600 mg) PO Q1 2HR #60 02/07/25 03/25/25 Rx extended release 12 hr (Mucus tabs Relief ER) ipratropium bromide 0.02 % 0.5 mg (2.5 mL) inhalation Q6HRT 02/07/25 03/25/25 Rx solution for inhalation #75 mL nebulizer and compressor #1 ea 02/07/25 03/25/25 Rx Allergies Allergy/AdvReac Type Severity Reaction Status Date / Time amoxicillin (From Augmentin) Allergy Intermediate Hives Verified 03/25/25 14:50 clavulanic acid (From Allergy Intermediate Hives Verified 03/25/25 14:50 Augmentin) Penicillins Allergy Intermediate Itching Verified 03/25/25 14:50 Vital Signs Vital Signs - 24 hr 03/27/25 12:00 03/27/25 13:33 03/27/25 14:20 Temperature 36.4 C Pulse Rate 95 102 H 101 H Respiratory Rate 18 18 Blood Pressure 132/67 Pulse Oximetry 95 Oxygen Delivery 03/27/25 14:28 03/27/25 16:00 03/27/25 20:00 Temperature Pulse Rate 100 94 Respiratory Rate 18 Blood Pressure Pulse Oximetry Oxygen Delivery Room Air 03/27/25 20:00 03/27/25 20:34 03/27/25 20:44 Temperature Pulse Rate 98 90 88 Respiratory Rate 18 18 Blood Pressure Pulse Oximetry Oxygen Delivery 03/27/25 21:17 03/28/25 00:00 03/28/25 01:52 Temperature 36.7 C Pulse Rate 103 H 96 90 Respiratory Rate 18 18 Blood Pressure 155/66 H Pulse Oximetry 93 Oxygen Delivery 03/28/25 01:59 03/28/25 02:00 03/28/25 04:00 Temperature Pulse Rate 94 92 Respiratory Rate 18 Blood Pressure Pulse Oximetry 94 Oxygen Delivery Room Air 03/28/25 05:36 03/28/25 07:49 03/28/25 07:49 Temperature 36.6 C Pulse Rate 93 98 Respiratory Rate 18 18 Blood Pressure 134/75 Pulse Oximetry 93 94 Oxygen Delivery Room Air 03/28/25 07:56 03/28/25 08:00 03/28/25 08:20 Temperature Pulse Rate 100 102 H Respiratory Rate 18 Blood Pressure Pulse Oximetry 95 Oxygen Delivery Room Air 03/28/25 11:15 03/28/25 11:17 03/28/25 11:20 Temperature Pulse Rate 98 120 H Respiratory Rate Blood Pressure Pulse Oximetry 95 93 Oxygen Delivery Room Air Room Air Room Air 03/28/25 11:25 Temperature Pulse Rate 96 Respiratory Rate Blood Pressure Pulse Oximetry 95 Oxygen Delivery Room Air Exam 2 Const: General: cooperative, comfortable and no acute distress O rientation/consciousness: oriented to person, oriented to place and oriented to time HENMT: Head: normal to inspection Ears: hearing grossly normal bilaterally Eyes: General: appearance normal, both eyes and all related structures Neck: Neck: normal visual inspection Chest: Chest palpation & inspection: normal inspection of the chest Resp: Effort & Inspection: normal respiratory effort and able to speak in complete sentences Auscultation: no crackles, no rales, no rhonchi, no wheezes and lung sounds not diminished Cardio: Jugular venous distension: no JVD GI: Inspection: normal to inspection GI Palp: No abdominal tenderness Skin: General skin exam: normal color Neuro: General: oriented to person, oriented to place and oriented to time Extrem: General: normal to inspection and no edema Psych: Appearance: grossly normal Results Laboratory Findings 03/28/25 04:16 03/28/25 04:16 ABG, PT/INR, D-dimer: ABG ABG pH 7.383 (7.350-7.450) 03/25/25 11:33 ABG pCO2 49.2 mmHg (35.0-45.0) H 03/25/25 11:33 ABG pO2 67.0 mmHg (80.0-100.0) L 03/25/25 11:33 ABG O2 Saturation 92.9 % (95.0-100.0) L 03/25/25 11:33 Abnormal lab findings: Abnormal Labs 03/25/25 03/25/25 03/26/25 10:53 11:33 04:38 WBC 17.0 H 10.9 H RBC 6.03 H Hgb 16.2 H D Hct 51.7 H MCHC 31.3 L 30.4 L RDW Neut % (Auto) 85.9 H Lymph % (Auto) 11.5 L Glenn % (Auto) 2.0 L Baso % (Auto) 0.1 L Lymph # (Auto) 4.36 H Glenn # (Auto) 1.0 H Eos # (Auto) 0.6 H Abs Immat Gran (auto) 0.04 H 0.05 H Absolute Neuts (auto) 10.9 H 9.3 H ABG pCO2 49.2 H ABG pO2 67.0 L ABG HCO3 28.6 H ABG O2 Saturation 92.9 L Chloride 97 L Carbon Dioxide 32 H 31 H BUN Creatinine 0.69 L 0.63 L Glucose 143 H 168 H Calcium Total Protein 8.7 H 03/27/25 03/28/25 05:16 04:16 WBC 11.4 H RBC Hgb Hct MCHC 30.7 L 30.3 L RDW 14.6 H Neut % (Auto) Lymph % (Auto) Glenn % (Auto) Baso % (Auto) Lymph # (Auto) Glenn # (Auto) Eos # (Auto) Abs Immat Gran (auto) Absolute Neuts (auto) ABG pCO2 ABG pO2 ABG HCO3 ABG O2 Saturation Chloride Carbon Dioxide BUN 24 H 19 H Creatinine 0.69 L Glucose Calcium 8.3 L Total Protein Diagnostic Findings Additional studies: ITS Impressions Chest X-Ray 03/25/25 11:08 IMPRESSION: Grossly, there are no acute findings seen. Chest CTA 03/25/25 12:24
--- NOTE | 2025-03-28 12:19 | PCOTNOTE ---
Per physical therapy and care coordination, pt is I in the room and hallways and is at her functional I baseline and has no OT needs. Will d/c OT orders.
--- NOTE | 2025-03-28 12:46 | P.DS_ITS ---
DS: Admitting Diagnosis Discharge Date 03/28/2025 Admitting Diagnosis pneumonia nasal septal deviation htn DS: Discharge Diagnosis Discharge Diagnosis (1) Community acquired pneumonia: Qualifiers: Laterality: unspecified laterality Qualified Code(s): J18.9 - Pneumonia, unspecified organism Code(s): J18.9 - Pneumonia, unspecified organism Status: Acute (2) Nasal septal deviation: Code(s): J34.2 - Deviated nasal septum Status: Acute (3) Hypertension: Qualifiers: Hypertension type: primary hypertension Qualified Code(s): I10 - Essential (primary) hypertension Code(s): I10 - Essential (primary) hypertension Status: Chronic DS: Summary Hospital Course Reason for hospitalization: pneumonia nasal septal deviation htn Hospital Course: 64-year-old female with a complex history including morbid obesity, chronic hypoxemic respiratory failure requiring 2L NC overnight, chronic sinusitis with nasal septal deviation and polyps, hypertension, and recurrent pneumonia. She presented on 03/25/25 with acute shortness of breath, reporting a history of worsening dyspnea and increased oxygen requirements at home. On arrival, she was on 2 L nasal cannula with a pulse oximetry of 90%. Initial labs were notable for leukocytosis (WBC 17.0), polycythemia (Hgb 16.2, Hct 51.7), and mild hypercapnia (ABG pCO2 49.2) with hypoxemia (pO2 67) on 2 L O2. Imaging revealed multifocal bilateral pneumonitis/airspace disease on chest CTA, but no evidence of pulmonary embolism. She was admitted for management of community-acquired pneumonia and acute hypoxemic respiratory failure, presumed secondary to chronic sinus disease and impaired airway clearance from her severe septal deviation. She was started on IV antibiotics and supportive care included scheduled DuoNebs, nebulized budesonide, guaifenesin, Flonase, and Claritin. Pulmonology was consulted. During her hospitalization, the patient?s respiratory status improved steadily. She was weaned off supplemental oxygen, with room air saturations stabilizing at 93?95% at rest and with ambulation. Serial labs showed resolution of leukocytosis and normalization of inflammatory markers. A formal home oxygen assessment on 03/28/25 confirmed she no longer required supplemental oxygen at rest or with exertion. She was to continue the 2L NC overnight. She was discharged in stable condition on oral antibiotics per pulmonology, with continued use of inhaled and intranasal therapies as well as guaifenesin. She was instructed to follow up with pulmonary clinic in one week, and strongly encouraged to schedule outpatient ENT and dental appointments for definitive ma nagglenn of her chronic sinus and dental disease. Throughout her stay, she remained hemodynamically stable, afebrile, and without further episodes of hypoxemia or respiratory distress. At time of discharge patient had no complaints denying chest pain, palpitations, shortness of breath, nausea/vomiting, abdominal pain and dizziness/lightheadedness. Patient discharged home in a stable condition. She is to follow up with her PCP in 1 week and pulmonology as scheduled. Status at Discharge Functional status at discharge: independent ambulation Time Spent with Patient Time attestation: Total time spent providing and/or coordinating discharge services: Time spent: Greater than 30 minutes Exam Narrative: AF HR 92 RR 18 SpO2 95 BP 134/75 General: female in no acute respiratory distress who is nontoxic appearing, sitting up in bed. HEENT: Normocephalic. Atraumatic. Extraocular movement intact. Sclera clear and anicteric. No facial asymmetry. Chest: Lungs are clear to auscultation with no noted crackles or wheezing. CV: Heart was regular rate and rhythm. Abd: Abdomen was soft. Nontender. Nondistended. Positive bowel sounds. Ext: No clubbing, cyanosis, or edema. DP pulses bilaterally. Neuro: Patient is alert. Speech is clear. DS: Data Data Completed and Pending Completed studies during hospitalization: chest cta chest xr Labs on day of discharge: Labs from last 24 hours 03/28/25 04:16 WBC 9.2 RBC 4.95 Hgb 13.2 Hct 43.6 MCV 88.1 MCH 26.7 MCHC 30.3 L RDW 14.6 H Plt Count 270 MPV 9.3 Sodium 140 Potassium 3.9 Chloride 104 Carbon Dioxide 30 Anion Gap 6 BUN 19 H Creatinine 0.69 L Estim Creat Clear Calc Not Reportable Estimated GFR > 60 Glucose 102 Calcium 8.5 NT-Pro-B Natriuret Pep 63 Procalcitonin 0.0 Discharge Plan Discharge Attending physician on discharge: J Carlos Torres Consulting providers: Chris Muhammad; Jamee Cardenas Discharging Clinician: Jamee Cardenas Anticipated Discharge Date/Time: 03/28/25 12:35 Patient Disposition: Home Activity: as tolerated Diet: as tolerated and heart healthy Discharge Instructions: Discharge disposition: Patient has admitted for recurrent pneumonia in relation to her chronic sinusitis Evaluated by pulmonology Continue these medications as prescribed * Azithromycin 250 mg p.o. q.day x3 days last dose 04/01/2025 attached is information on this medication * Ipratropium nebulizer 0.5 mg q.6 hours * Budesonide 500 mcg nebulized b.i.d. * Claritin 10 mg a day, Flonase 2 sprays each nostril twice a day, Guaifenesin 1200 mg p.o. b.i.d. * Oxygen 2 L at night. * No oxygen at rest or with activity per formal home O2 assessment which was performed on 03/28/2025. Strongly encourage follow up with ENT in regards to the procedures for the chron ic sinusitis and nasal septal deviation Keep active to remain strong Monitor blood pressures Take caution while standing, rising, or moving Change positions slowly taking a break between each position change If you standing feel dizzy sit back down and take a break Encouraged to continue with yearly vaccinations Return to the emergency department if he developed sudden shortness of breath, chest pain, nausea, vomiting, upset stomach or intractable diarrhea Return to the emergency department if you develop fever greater than 100.5 Follow-up with the primary care physician within 1-2 weeks Thank you for [facility] for your healthcare needs Patient Instructions: Antibiotic Form, Azithromycin (By mouth), Sinusitis (ED), Pneumonia (DC) Patient Language: Albanian Stand Alone Forms: General Discharge Information Follow-up/Referrals: Kenia,MD Guido [Primary Care Provider, Unknown] - 1 Week Chris Muhammad MD [Physician, Pulmonology] - Keep Reg. Scheduled Appt. Discharge Medications: New fluticasone propionate 50 mcg/actuation Lewis,Suspension 2 spray intranasal BID Qty: 16 0RF loratadine 10 mg Tablet 10 mg PO QAM Qty: 15 0RF azithromycin 250 mg tablet 250 mg PO DAILY Qty: 3 0RF Continued lisinopril 20 mg tablet 10 mg PO HS (DME) nebulizer and compressor Device See Rx Instructions .Route Qty: 1 0RF Rx Instructions: As directed ipratropium bromide 0.02 % Solution 0.5 mg inhalation Q6HRT Qty: 75 0RF budesonide [Pulmicort] 0.5 mg/2 mL Suspension For Nebulization 0.5 mg inhalation Q12HRT Qty: 60 0RF guaifenesin [Mucus Relief ER] 600 mg Tablet Extended Release 12hr 1,200 mg PO Q12HR Qty: 30 0RF Date of admission: 03/25/25 12:57 Primary Care Provider: KeniaGuido Admitting Provider: J Carlos Torres Attending physician on admission: J Carlos Torres Condition: Stable Hospitalist MIPS Heart Failure (Exclusion) Patient has history of Heart Transplant or Left Ventricular Assistive Device?: No IF YES, STOP HERE Heart Failure (Qualifier) Patient has current or prior documentation of LVEF less than or equal to 40%, or mod/servere depressed LVSF?: No IF NO, STOP HERE
== END 2025-03-28 14:10 | disposition home or self-care (01) | DRG 193 ==
LOC: ANHED 10:58 → ANH2MED 13:21
PROVIDERS: Internal Medicine Pulmonary Disease; Nurse Practitioner; Nurse Practitioner Gerontology; Admitting Provider Internal Medicine; Emergency Provider Student in an Organized Health Care Education/Training Program; PCP Hospitalist; Visit Provider Student in an Organized Health Care Education/Training Program
DX: J18.9 Pneumonia, unspecified organism (principal); J96.21 Acute and chronic respiratory failure with hypoxia; Z68.43 Body mass index [BMI] 50.0-59.9, adult; J34.2 Deviated nasal septum; D75.1 Secondary polycythemia; E66.01 Morbid (severe) obesity due to excess calories; I10 Essential (primary) hypertension; J32.9 Chronic sinusitis, unspecified; J45.909 Unspecified asthma, uncomplicated; K08.9 Disorder of teeth and supporting structures, unspecified; Z99.81 Dependence on supplemental oxygen; Z90.49 Acquired absence of other specified parts of digestive tract
CPT/HCPCS: 36415; 36600; 71046; 71275; 80048; 80053; 82805; 83880; 84145; 85018; 85025; 85027; 87637; 93005; 94618; 94640; 97161; 99285; A9270; J0696; J1650; Q9967

== ENCOUNTER 2025-04-01 19:22 | Inpatient (IN) | payer MEDICARE, SELFPAY ==
[2025-04-01] VITALS (20 sets, daily range): BP systolic 115–158; BP diastolic 68–130; PULSE 103–125; RESP 12–27; TEMP 36.4; O2SAT 90–100
--- NOTE | ~2025-04-01 | CT_ITS ---
EXAMINATION: CT sinus wo con COMPARISON: None HISTORY: chronic sinusitis TECHNIQUE: Axial images were obtained without IV contrast. Sagittal, coronal reconstruction images were obtained from the axial views. CT scan performed using dose optimization techniques including the following automated exposure control; adjustment of mA and/or kV; use of iterative reconstruction technique. Automatic exposure control was used to reduce radiation dose. Permanent radiation dose record is archived to PACS. FINDINGS: EXAMINATION: CT sinus wo con COMPARISON: None HISTORY: chronic sinusitis TECHNIQUE: Axial images were obtained without IV contrast. Sagittal, coronal reconstruction images were obtained from the axial views. CT scan performed using dose optimization techniques including the following automated exposure control; adjustment of mA and/or kV; use of iterative reconstruction technique. Automatic exposure control was used to reduce radiation dose. Permanent radiation dose record is archived to PACS. FINDINGS: EXAMINATION: CT sinus wo con COMPARISON: None HISTORY: chronic sinusitis TECHNIQUE: Axial images were obtained without IV contrast. Sagittal, coronal reconstruction images were obtained from the axial views. CT scan performed using dose optimization techniques including the following automated exposure control; adjustment of mA and/or kV; use of iterative reconstruction technique. Automatic exposure control was used to reduce radiation dose. Permanent radiation dose record is archived to PACS. FINDINGS: EXAMINATION: CT sinus wo con COMPARISON: None HISTORY: chronic sinusitis TECHNIQUE: Axial images were obtained without IV contrast. Sagittal, coronal reconstruction images were obtained from the axial views. CT scan performed using dose optimization techniques including the following automated exposure control; adjustment of mA and/or kV; use of iterative reconstruction technique. Automatic exposure control was used to reduce radiation dose. Permanent radiation dose record is archived to PACS. FINDINGS: Visualized brain parenchyma optic globes and soft tissues appear unremarkable There is severe mucosal thickening in the frontal sinuses bilaterally, the right frontal sinuses are diminutive. Moderate mucosal thickening in the ethmoidal air cells bilaterally in the maxillary sinuses with moderate mucosal thickening noted also in the sphenoid sinuses. The ostiomeatal complex on the left is obstructed. The ostiomeatal complex on the right is narrowed. The nasal septum is posteriorly deviated to the left with mild thickening of the turbinates with no significant narrowing of the nasal cavities. There is no osseous destruction or wall thickening identified. IMPRESSION: Sinusitis detailed above Reviewed, dictated and finalized at location [facility] IMPRESSION: Sinusitis detailed above
--- NOTE | ~2025-04-01 | XR_ITS ---
EXAMINATION: XR chest 1V portable DATE: 04/01/2025 19:55 INDICATION: Shortness of breath. TECHNIQUE: A single frontal view of the chest was obtained. COMPARISON: CT angiogram dated 03/25/2025. Chest x-ray dated 03/25/2025. FINDINGS: Heart size is normal. Atherosclerotic aorta. No significant acute pulmonary findings. IMPRESSION: 1. No acute findings of lungs limited portable AP chest. Reviewed, dictated and finalized at location [facility]. [facility]
--- NOTE | 2025-04-01 19:36 | ED_ITS ---
HPI - SOB/Dyspnea General Chief Complaint: Shortness of Breath/Dyspnea Stated Complaint: sob Time Seen by Provider: 04/01/25 19:35 Source: patient and EMS Mode of arrival: EMS Limitations: no limitations History of Present Illness HPI Narrative: 64 years old white female came from home by ambulance with shortness of breath, dry cough, nasal and postnasal discharge. Patient lives with her brother. History of hypertension, and morbid obesity. Patient reports oxygen by nasal cannula, 2 L at night only because of nasal septum deviation MD elicited complaint: shortness of breath Related Data Home Medications ?Medication ?Instructions ?Recorded ?Confirmed ?Last Taken ?Type lisinopril 20 mg tablet 10 mg PO HS 10/26/24 5 03/24/25 History Allergies Allergy/AdvReac Type Severity Reaction Status Date / Time amoxicillin (From Augmentin) Allergy Intermediate Hives Verified 03/25/25 14:50 clavulanic acid (From Allergy Intermediate Hives Verified 03/25/25 14:50 Augmentin) Penicillins Allergy Intermediate Itching Verified 03/25/25 14:50 Review of Systems 2 Review of Systems: All systems reviewed & are unremarkable except as noted in HPI and below PMFSH Past Medical History Medical History Hypoxemia requiring supplemental oxygen Polycythemia Nasal septal deviation Nasal mucosa dry Morbid obesity with BMI of 50.0-59.9, adult Hypertension Maxillary sinus polyp Surgical History Surgical History H/O: hysterectomy History of appendectomy Family History Family History Mother Diabetes mellitus Heart attack Hypertension Cerebrovascular accident Sibling Acute myocardial infarction Father Prostate carcinoma Grandparent Congestive heart failure Hypertension Social History Social History Social History: She is 1 of 10 children. Her and her younger brother live together. She is single and never been and does not have any children. 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 She denies any history of alcohol, tobacco or illicit substance use. Code status: Full code Surrogate decision maker: Dora JoyceJa (sister) Caffeine-green tea, occasional soda Smoking status: Never smoker Second hand tobacco smoke exposure: No Alcohol intake: never Substance use: never Substance use type: does not use Do You Feel Safe in your Home?: Yes Lack of Transportation: No Lack of Food: Never True Current Housing: I Have Housing Concerned About Future Housing: No Difficulty Paying Gas/Electric Bills: No Difficulty Paying for Meds: No Currently Unemployed: No Education: Associate Degree Difficulty w/ Childcare or Family Care: No Spiritual care concerns: No Exam 2 Narrative: General appearance: Well-developed, well-nourished Skin: Normal color Head: Normocephalic, nontraumatic Eyes: Clear conjunctiva ENT: Oropharynx normal, ears normal, nose normal Neck: Supple, nontender Chest and respiratory: Airway patent, diffuse expiratory wheezing bilaterally no accessory muscle use Heart: Regular rate/rhythm Abdomen: Soft, nontender, no organomegaly, quiet bowel sounds Vascular: Normal peripheral pulses, normal capillary refill. Musculoskeletal: Normal range of motion, nontender back Neurologic: Alert and oriented ?3, PHOTOVOLTAIC TECHNICIAN is normal as tested, no gross motor deficit Course Vital Signs Vital signs: Vital Signs Temperature 36.4 C 04/01/25 19:21 Pulse Rate 124 H 04/01/25 19:21 Respiratory Rate 22 H 04/01/25 19:21 Blood Pressure 158/130 H 04/01/25 19:21 Pulse Oximetry 95 04/01/25 19:21 Oxygen Delivery Nasal Cannula 04/01/25 19:21 Oxygen Flow Rate 5 04/01/25 19:21 Temperature 36.4 C 04/01/25 19:21 Pulse Rate 118 H 04/01/25 21:25 Respiratory Rate 20 04/01/25 21:25 Blood Pressure 158/130 H 04/01/25 19:21 Pulse Oximetry 100 04/01/25 20:50 Oxygen Delivery Nasal Cannula 04/01/25 20:36 Oxygen Flow Rate 4 04/01/25 20:36 MDM - SOB/Dyspnea MDM Narrative Medical decision making narrative: Patient came from home by ambulance complaining of shortness of breath and dry cough Vital signs showing blood pressure 158/130, heart rate 124, respiration 22, saturation 95% on 5 L. Patient normally on 2 L only at night. Physical examination: Diffuse bilateral fine wheezing, no labored breathing Differential diagnosis include bronchospasm, viral infection, pneumonia, less likely coronary artery disease Blood workup today includes CBC, CMP, troponin, pro BMP AND D-DIMER showed WBC 21.1, HEMOGLOBIN 16.1, PRO BMP 155, PATIENT TESTED NEGATIVE FOR COVID FLU AND RSV, ABG ON 4 L SHOWED OXYGENATION SATURATION 92.7 CONSISTENT WITH PREVIOUS RECORDS CHEST X-RAY SHOWED NO ACUTE ABNORMALITY DIAGNOSIS ACUTE HYPOXIC RESPIRATORY FAILURE, LEUKOCYTOSIS PROBABLY SECONDARY TO STEROID INTAKE VERSUS STRESS AND ANXIETY ADMIT TO HOSPITALIST. Differential Diagnosis Differential diagnosis: Likely other ( ABOVE) Medical Records Attestation: I reviewed the patient's medical records. Lab Data Attestation: I reviewed the patient's lab results. 04/01/25 20:32 Labs: Lab Results 04/01/25 04/01/25 Range/Units 20:32 20:34 WBC 21.1 H (4.5-10.0) K/mm3 RBC 6.00 H (4.2-5.4) M/mm3 Hgb 16.1 H (12.0-15.0) g/dL Hct 51.5 H (37.0-47.0) % MCV 85.8 (80-100) fl MCH 26.8 (26-34) pg MCHC 31.3 L (32-36) g/dl RDW 13.8 (11.5-14.5) % Plt Count 386 H (150-375) k/mm3 MPV 9.0 (7.4-10.4) fl Immature Gran % (Auto) Not Reportable Neut % (Auto) Not Reportable Lymph % (Auto) Not Reportable [place] % (Auto) Not Reportable Eos % (Auto) Not Reportable Baso % (Auto) Not Reportable Lymph # (Auto) Not Reportable [place] # (Auto) Not Reportable Eos # (Auto) Not Reportable Baso # (Auto) Not Reportable Abs Immat Gran (auto) Not Reportable Absolute Neuts (auto) Not Reportable Absolute Nucleated RBC Not Reportable Total Counted 100 Neutrophils % (Manual) 84 H (46-73) % Band Neutrophils % 1 (0-6) % Lymphocytes % (Manual) 9.0 L (18-44) % Monocytes % (Manual) 5 (3-9) % Eosinophils % (Manual) 1 (0-4) % Nucleated RBC % Not Reportable Abs Neuts (Manual) 17.93 H (1.3-6.7) K/mm3 Abs Lymphs (Manual) 1.89 (1.1-4.5) K/mm3 Abs Monocytes (Manual) 1.05 H (0.1-0.90) K/mm3 Absolute Eos (Manual) 0.21 (0.02-0.50) K/mm3 Platelet Estimate Adequate (Adequate) Schistocytes None seen PT 13.7 (11.1-14.7) Seconds INR 1.0 APTT 32.5 (22.3-36.8) Seconds D-Dimer 0.31 (<0.48) ug/mL Troponin I < 0.012 (0.000-0.034) ng/mL NT-Pro-B Natriuret Pep 155 H (19.9-100) pg/mL Influenza A (RT-PCR) Negative (Negative) Influenza B (RT-PCR) Negative (Negative) RSV (RT-PCR) Negative (Negative) SARS-CoV-2 RNA (RT-PCR) Negative (Negative) ABG Data ABG results: 04/01/25 20:02 Puncture Site Left radial ABG pH 7.363 ABG pCO2 55.0 H ABG pO2 68.1 L ABG PO2/FiO2 Ratio 1.70 ABG HCO3 30.6 H ABG O2 Saturation 92.7 L ABG O2 Content 21.7 ABG Base Excess 3.5 A-a Gradient 153.9 Oxyhemoglobin 92.2 Total Hemoglobin 16.8 O2 Delivery Device Nasal cannula O2 Liters/Min 4.0 FiO2 40 Imaging Data Radiologist's impression: Impressions Chest X-Ray 04/01/25 19:57 IMPRESSION: 1. No acute findings of lungs limited portable AP chest. ECG Data EKG #1: Attestation: I personally reviewed and interpreted this ECG as follows: ECG completion date: 04/01/25 Interpretation: SINUS TACHYCARDIA AT 124 BEATS PER MINUTE, LOW QRS VOLTAGE IN PRECORDIAL LEADS, Critical Care Time Critical Care Time Critical Care Time: No Discharge Plan Discharge Clinical Impression: Acute hypoxic respiratory failure, Leukocytosis Patient Disposition: Still a Patient Condition: Stable
--- NOTE | 2025-04-01 19:40 | ECG_ITS ---
Test Date: 2025-04-01 19:44:00 Measurements Intervals [place] Rate: 124 P: 30 RI: 145 QRS: 13 QRSD: 70 T: 59 QT: 330 QTc: 475 Interpretive Statements SINUS TACHYCARDIA LOW QRS VOLTAGE IN PRECORDIAL LEADS [QRS DEFLECTION < 1.0 mV IN CHEST LEADS] Electronically Signed On 04-01-2025 20:35:44 [employer] by Liliam Pillai M.D.
--- OUTSIDE RECORDS SUMMARY | 2025-04-01 19:49 | XMS_ITS | Clinical Summary ---
Author Organization [facility] Address [address] [place] [id number] Care Team Providers Care Stop Attacher Name Role Phone DanayMagali schwab JOSÉ Primary Care Provider Allergies Active Allergy Reactions Criticality Noted Date Comments Amoxicillin Hives High 12/12/2024 Clavulanic Acid Hives High 12/12/2024 Penicillins Unknown 04/23/2020 Hives and welps, Medications sodium chloride 3 % mist Administer 1 spray into affected nostril(s) 3 (three) times a day Active lisinopriL (PRINIVIL,ZESTRIL ) 10 mg tabletIndications :Benign hypertension Take 1 tablet (10 mg total) by mouth daily 30 tablet 1 5 Active albuterol HFA (PROVENTIL HFA,VENTOLIN HFA,PROAIR HFA) 90 mcg/actuation inhaler Inhale 2 puffs every 6 (six) hours as needed for wheezing Active budesonide-formot Junior (SYMBICORT) 160-4.5 mcg/actuation inhaler Inhale 2 puffs 2 (two) times a day Rinse mouth with water after use. Do not swallow. Active guaiFENesin ER (MUCINEX) 600 mg 12 hr tablet Take 2 tablets (1,200 mg total) by mouth 5 Active triamcinolone (KENALOG) 0.1 % ointmentIndicatio ns:Dermatitis Apply topically 2 (two) times a day for 10 days 30 g 10/08/202 5 Active Active Problems Problem Noted Date Diagnosed Date Daytime hypersomnia 03/22/2025 Hypoxia 03/22/2025 Acute hypoxemic respiratory failure 02/02/2025 Chronic hypercapnia [...] for wheezing. I discussed patient seeing an inspector dials, but her sister would like to just do the labs instead of having to go to a specialist visit. Hydronephrosis 05/09/2020 Assessment & Plan (05/09/2020 4:59 PM ONCOLOGY RESEARCH RN): Could certainly have been due to a stone but without seeing this on her CT scan will refer to urology for further evaluation. Patient is aware of long-term risks posed by chronic hydronephrosis and hydroureter. Check metabolic panel next week for renal function. Leukocytosis 05/09/2020 Assessment & Plan (05/09/2020 5:00 PM ONCOLOGY RESEARCH RN): Repeat CBC next week to ensure normalization [...] fall prevention, proper nutrition, and suggested joining [facility] to accomplish most of these goals. [...] loss. Assessment & Plan (05/09/2020 5:00 PM ONCOLOGY RESEARCH RN): Remains well controlled at home and there [...] Encounters Date Type Department Care Team Description 03/25/2025 9:53 AM ONCOLOGY RESEARCH RN - 03/25/2025 11:59 PM ONCOLOGY RESEARCH RN Hospital Encounter [facility] Emergency, Room R Discharge Disposition: Discharge to home or self care 03/25/2025 Orders Only [facility] [address] [place] [phone] Scanning, Provider 03/21/2025 Orders Only [facility] [address] [place] [id number] Scanning, Provider 02/16/2025 2:15 PM CDT Office Visit [facility] at [address] [phone] Ramin Sargent NP Cellulitis of abdominal wall (Primary Dx); Elevated blood pressure reading in office with diagnosis of hypertension; Dermatitis 02/04/2025 10:44 AM CDT - 02/04/2025 11:59 PM CDT Hospital Encounter [facility] Emergency, Room R Discharge Disposition: Discharge to home or self care 02/04/2025 Nurse Triage [facility] at [address] [phone] Magali Jon NP from Last 3 Months Immunizations Immunization Administration Dates Next Due Influenza, Unspecified 05/09/2020(Deferr ed: Patient Refused),03/22/2020(Deferred: Patient Refused),03/16/2020(Deferred: Patient Refused),02/09/2019(Deferred: Patient Refused),02/09/2019(Deferred: Patient Refused),02/09/2019(Deferred: Patient Refused),01/21/2019(Deferred: Patient Refused),02/09/2018(Deferred: Patient Refused) Tdap 10/22/2023,08/10/2010 Surgical History Surgery Date Site/Laterality Comments UMBILICAL HERNIA REPAIR 2000 Hernia repair, umbilical OTHER SURGICAL HISTORY microscopic [...] Mother Diabetes mellit us; Heart attack Mother MS; Hypertension Mother Hypertension; Relation Name Status Comments [...] on file Legal Sex Female 2:38 PM ONCOLOGY RESEARCH RN Gender Identity Not on file Sexual Orientation [...] Procedure Name Priority Date/Time Associated Diagnosis Comments SCAN - RADIOLOGY/IMAGING 03/25/2025 PULMONARY - RESULT SCAN 03/21/2025 HEPATITIS C ANTIBODY Routine 12/03/2024 11:44 AM CDT Encounter for hepatitis C screening test for low risk patient STOOL DNA COLOGUARD Routine 07/14/2019 Screening for malignant neoplasm of the rectum Special screening for malignant neoplasms, colon DIAGNOSTIC MAMMOGRAM BILATERAL W WILMER Routine 08/06/2016 7:29 PM CDT DEXA SCAN Routine 10/02/2011 from Last 3 Months or Most Recently Relevant to Health Maintenance Results * SCAN - RADIOLOGY/IMAGING (03/25/2025) Anatomical Region Laterality Modality Other Provider Scanning Edited Result - Final * PULMONARY - RESULT SCAN (03/21/2025) Anatomical Region Laterality Modality Other us Provider Scanning Final Result * Hepatitis C antibody Blood (12/03/2024 11:44 [...] last revised on 2019. Testing performed by: [facility], [address] [place] [address], [place]., [address] Blood 12/03/2024 11:4 4 AM CDT 12/03/2024 4:36 PM CDT Magali Jon NP LAB MICROBIOLOGY - GENE RAL ORDERABLES Final Result Performing Organization Address City/[facility] Co de Phone Number [facility] [address] Department [place] [address] * Stool DNA - Cologuard (07/14/2019) Scribed Stool DNA - Cologuard Negative [facility] Stool 07/14/2019 aSnjiv Conte MD LAB BODY FLUIDS AND STOOLS O RDERABLES Final Result Performing Organization Address [facility] Co de Phone Number [facility] * Diagnostic Mammogram Bilateral W Wilmer (08/06/2016 7:29 PM CDT) Anatomical Region Laterality Modality Breast Bilateral Mammography 08/06/2016 7:29 PM CDT Narrative 08/06/2016 7:29 PM CDT SCREENING MAMM W WILMER BI Acc#: [id number] DATE OF EXAM: Aug 06 2016 CLINICAL HISTORY: Screening. Performed by: [facility] RESULT: Craniocaudal and mediolateral [...] on: Aug 06 2016 2:29P Transcribed by: [facility] On: Aug 06 2016 4:05P Approved Electronically by: CARMELO Lovett, DR HURT on: Aug 06 2016 7:55P Attending: DR SANJIV CONTE Requesting: DR SANJIV CONTE Requesting Attending Attending ID: [id number] Requesting ID: [id number] Report To 1 ID: [id number] Report To 1 Name: DR SANJIV CONTE Report To 1 FAX: [phone] [employer] Order #: Procedure Note Miscellaneous, Notinfile / Provider, MD Richard - 10/02/2016 SCREENING MAMM W WILMER BI Acc#: [id number] DATE OF EXAM: Aug 06 2016 CLINICAL HISTORY: Screening. Performed by: [facility] RESULT: Craniocaudal and mediolateral [...] Read on: Aug 06 20162:[id number] Transcribed by: brandy On: Aug 06 2016 4:05P Approved Electronically by: CARMELO Lovett, DR HURT on: Aug 06 20167:55P Attending: DR SANJIV CONTE Requesting: DR SANJIV CONTE Requesting Attending Attending ID: [id number] Requesting ID: [id number] Report To 1 ID: [id number] Report To 1 Name: DR SANJIV CONTE Report To 1 FAX: [phone] [employer] Order #: us Not In File Miscellaneous IMG MAMMO PROCEDURES F inal Result * DEXA SCAN (10/02/2011) DEXA Scan Normal us Historical Provider HEALTH MAINTENANCE Final Result from Last 3 Months or Most Recently Relevant to Health Maintenance Insurance MEDICARE MEDICARE MEDICARE Care Teams Stop Attacher Relationship Specialty Start Date End Date Magali Jon NP [address] [facility] [address] [place] [id number] PCP - General Nurse Practitioner 09/21/24
--- OUTSIDE RECORDS SUMMARY | 2025-04-01 19:49 | XMS_ITS | Encounter Summary ---
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 Gender Identity Not on file Sexual Orientation Not on file documented as of this encounter Plan of Treatment Not on file documented as of this encounter Procedures Procedure Name Priority Date/Time Associated Diagnosis Comments SCAN - RADIOLOGY/IMAGING 03/25/2025 documented in this encounter Results * SCAN - RADIOLOGY/IMAGING (03/25/2025) Anatomical Region Laterality Modality Other us Provider Scanning Edited Result - Final documented in this encounter Visit Diagnoses Not on filedocumented in this encounter Care Teams Business Machine Operator Relationship Specialty Start Date End Date Magali Jon NP [address] [address] PCP - General Nurse Practitioner 09/21/24 documented as of this encounter
[2025-04-01 20:16] LABS: Alveolar/Arterial O2 Gradient 153.9 mmHg; Fractional Inspired Oxygen 40 %; HCO3 ABG 30.6 mEq/l (22.0-26.0); Oxygen Content ABG 21.7 %vol (16.0-22.0); Oxygen Saturation ABG 92.7 % (95.0-100.0); PCO2 ABG 55.0 mmHg (35.0-45.0); PO2 ABG 68.1 mmHg (80.0-100.0); PO2 FiO2 Ratio Arterial Blood 1.70 %
[2025-04-01 20:18] LABS: Site Drawn LEFT RADIAL
[2025-04-01 20:19] LABS: Liters per Minute 4.0 LPM; Modified Allen's Test Pass
[2025-04-01] MEDS: ALBUTEROL SULFATE NEB 2.5 MG/3 ML INH 10 MG INHALATION (20:22)
[2025-04-01 20:55] LABS: INR 1.0; Prothrombin Time 13.7 Seconds (11.1-14.7)
[2025-04-01 20:56] LABS: Partial Thromboplastin Time 32.5 Seconds (22.3-36.8)
[2025-04-01 21:01] LABS: NT Pro B Type Natriuretic Pept 155 pg/mL (19.9-100); Troponin I < 0.012 ng/mL (0.000-0.034)
[2025-04-01 21:21] LABS: Influenza A QL RT-PCR Negative (Negative); Influenza B QL RT-PCR Negative (Negative); RSV RNA, RT-PCR Negative (Negative); SARS-CoV-2 RNA PCR Negative (Negative)
[2025-04-01 22:14] LABS: Hematocrit 51.5 % (37.0-47.0); Hemoglobin 16.1 g/dL (12.0-15.0); Mean Corpuscular HGB Conc 31.3 g/dl (32-36); Mean Corpuscular Hemoglobin 26.8 pg (26-34); Mean Corpuscular Volume 85.8 fl (80-100); Platelet Count Result 386 k/mm3 (150-375); Red Blood Count 6.00 M/mm3 (4.2-5.4); White Blood Count 21.1 K/mm3 (4.5-10.0)
[2025-04-01 22:35] LABS: Band Neutrophils Percent 1 % (0-6); Eosinophils Absolute Manual 0.21 K/mm3 (0.02-0.50); Eosinophils Percent Manual 1 % (0-4); Lymphocytes Absolute Manual 1.89 K/mm3 (1.1-4.5); Lymphocytes Percent Manual 9.0 % (18-44); Monocytes Absolute Manual 1.05 K/mm3 (0.1-0.90); Monocytes Percent Manual 5 % (3-9); Neutrophils Absolute Manual 17.93 K/mm3 (1.3-6.7); Neutrophils Percent Manual 84 % (46-73); Schistocytes None Seen; Total Cells Counted 100
--- NOTE | 2025-04-01 23:17 | WPCEDHO ---
ED Hand Off Checklist All vitals saved:yes IV Site documented:yes All med administrations documented:yes Triage Note Triage Note Pt to the ED with C/O shortness 04/01/25 19:21 of breath. Pt is from home and has no Hx of CHF, COPD, asthma, or Emphysema. Pt was 84% on room air on initial assessment by EMS and had difficulty speaking. Pt is now 95% on 5 liters and able to speak comfortably. Pt is mildly anxious. Pt received 2 DuoNeb treatments, 0.5 Epi, 125 mg of solumedrol. Pt still has wheezing and productive cough. Allergies amoxicillin (From Augmentin) Allergy (Intermediate, Verified 03/25/25 14:50) Hives clavulanic acid (From Augmentin) Allergy (Intermediate, Verified 03/25/25 14:50) Hives Penicillins Allergy (Intermediate, Verified 03/25/25 14:50) Itching Family History (Last Reviewed 04/01/25 @ 22:26 by Hayder Verdugo MD) Mother Diabetes mellitus Heart attack Hypertension Cerebrovascular accident Sibling Acute myocardial infarction Father Prostate carcinoma Grandparent Congestive heart failure Hypertension Administered/Completed Medications Discontinued Medications Albuterol (Albuterol Sulfate Neb 2.5 Mg/3 Ml Inh) 10 mg INHALATION ONCE STA Stop: 04/01/25 20:13 Last Admin: 04/01/25 20:22 Dose: 10 mg Documented By: MVP Interventions/Assessments IV / Saline Lock, Insert Start: 04/01/25 19:47 Freq: STAT Status: Active Protocol: Document 04/01/25 20:40 LLG (Rec: 04/01/25 20:40 LLG [id number]) IV Assessment Peripheral Access Left Forearm IV Catheter Access Initiated IV Insertion Date 04/01/25 IV Insertion Time 20:40 Catheter Gauge 20 IV Insertion 1 Attempts IV Site Assessment WNL IV Care and WNL Maintenance PA: Cardiovascular Assessment Start: 04/01/25 19:13 Freq: Status: Active Protocol: Document 04/01/25 19:21 LLG (Rec: 04/01/25 19:39 LLG [id number]) Cardiovascular Assessment Cardiovascular Dyspnea,Edema Symptoms Skin Description Cool,Pallor Heart Sounds Normal Jugular Vein None Distention Chest Pain Assessment Chest Pain Intensity 0 PA: Respiratory Assessment Start: 04/01/25 19:13 Freq: Status: Active Protocol: Document 04/01/25 19:21 [facility] (Rec: 04/01/25 19:39 [facility] [id number]) Respiratory Assessment Symptoms Congestion,Cough,Shortness of Breath at Rest,Shortness of Breath With Exertion,Unable to Lie Flat Effort Normal Pattern Hyperventilation Depth Deep Chest Expansion Symmetrical Cough Description Acute,Loose,Productive Cough Frequency Intermittent Sputum Amount Scant Sputum Color Clear Sputum Consistency Thick Oxygen Delivery Oxygen Delivery Nasal Cannula Oxygen Flow Rate 5 Pulse Oximetry (90- 95 100) Last Vital Signs Temperature 97.6 F 04/01/25 19:21 Pulse Rate 103 H 04/01/25 23:16 Respiratory Rate 17 04/01/25 23:16 Pulse Oximetry 93 04/01/25 23:16 Blood Pressure 115/72 04/01/25 23:16 Blood Pressure Mean 84 04/01/25 23:16 Oxygen Delivery Nasal Cannula 04/01/25 20:36 Oxygen Flow Rate 4 04/01/25 20:36 Last Result - Abnormals Only WBC 21.1 K/mm3 (4.5-10.0) H 04/01/25 20:32 RBC 6.00 M/mm3 (4.2-5.4) H 04/01/25 20:32 Hgb 16.1 g/dL (12.0-15.0) H 04/01/25 20:32 Hct 51.5 % (37.0-47.0) H 04/01/25 20:32 MCHC 31.3 g/dl (32-36) L 04/01/25 20:32 Plt Count 386 k/mm3 (150-375) H 04/01/25 20:32 Neutrophils % (Manual) 84 % (46-73) H 04/01/25 20:32 Lymphocytes % (Manual) 9.0 % (18-44) L 04/01/25 20:32 Abs Neuts (Manual) 17.93 K/mm3 (1.3-6.7) H 04/01/25 20:32 Abs Monocytes (Manual) 1.05 K/mm3 (0.1-0.90) H 04/01/25 20:32 ABG pCO2 55.0 mmHg (35.0-45.0) H 04/01/25 20:02 ABG pO2 68.1 mmHg (80.0-100.0) L 04/01/25 20:02 ABG HCO3 30.6 mEq/l (22.0-26.0) H 04/01/25 20:02 ABG O2 Saturation 92.7 % (95.0-100.0) L 04/01/25 20:02 NT-Pro-B Natriuret Pep 155 pg/mL (19.9-100) H 04/01/25 20:34 Most Recent Suicide Severity Rating Suicide Severity Rating NO RISK INDICATED 04/01/25 19:21
[2025-04-02] VITALS (20 sets, daily range): BP systolic 114–136; BP diastolic 67–83; PULSE 86–118; RESP 17–20; TEMP 36.3–36.7; O2SAT 90–94; BMI 50.2
[2025-04-02] MEDS: ACETAMINOPHEN 325 MG TABLET 650 MG PO ×2 (01:05→21:22)
[2025-04-02] MEDS: IPRATROPIUM 0.5 MG/ALBUTEROL SULFATE 2.5 MG (BASE) AMPUL.NEB 3 ML INHALATION ×2 (02:23→07:14)
[2025-04-02 02:54] LABS: Troponin I < 0.012 ng/mL (0.000-0.034)
--- NOTE | 2025-04-02 04:17 | P.HP_ITS ---
H&P: HPI History of Present Illness Date/Time: 04/02/25 04:17 Chief Complaint: Shortness of breath and dyspnea Narrative: This is a 64-year-old female patient who was discharged from this hospital approximately 5 days ago with community-acquired pneumonia. She has a history of morbid obesity with chronic hypoxic respiratory failure requiring 2 L per nasal cannula overnight. She also has chronic sinusitis with nasal septal deviation and polyps. She continues to have recurrent pneumonia. When the patient was discharged she was weaned off supplemental oxygen with O2 saturations stabilizing at 93-95% at rest and with ambulation. She does have nebulizer treatments at home. Says her white count was noted to be 21.1. H&H is 16.1 and 51.5. ABGs were performed her pH was within normal limits but she has hypercapnia with a pCO2 of 55.0 with prior comparison patient is a CO2 retainer. Troponins were negative x2. BNP is 155. Influenza a and B are negative. She is also negative for COVID. Chest x-ray was read as no acute findings of the lungs limited portable AP chest. She did have as CTA from her previous admission on 04/01/2025 that showed multifocal bilateral pneumonitis and or airspace disease progressed from December. No identified PE. She was given nebulizer treatment in the emergency room. Oxygen was applied at 2 L per nasal cannula. Her O2 saturations were anywhere from 90-100%. The patient is being admitted for observation status on the date of service of 04/02/2025. Review of Systems Constitutional: Constitutional: Reports as per HPI and Reports no additional constitutional complaints Eyes: Eyes: Reports as per HPI and Reports no additional eye complaints ENT: Reports system reviewed and no additional complaints, except as documented and Reports Normal hearing present Cardiovascular: Cardiovascular: Reports no additional cardiovascular complaints Respiratory: Respiratory: Reports as per HPI and Reports no additional respiratory complaints Gastrointestinal: Gastrointestinal: Reports as per HPI and Reports no additi onal gastrointestinal complaints Genitourinary: Genitourinary: Reports no additional female genitourinary complaints Musculoskeletal: Musculoskeletal: Reports no additional musculoskeletal complaints Integumentary/Breasts: Skin/Breast: Reports system reviewed and no additional complaints, except as docu Neurologic: Reports system reviewed and no additional complaints, except as documented and Reports Normal hearing present Psychiatric: Psychiatric: Reports no additional psychiatric complaints and Reports as per HPI Hematologic/Lymphatic: Hematologic/Lymphatic: Reports no additional hematologic/lymphatic complaints Allergic/Immunologic: Allergic/Immunologic: Reports no additional allergic/immunologic complaints [facility] Past Medical History Medical History Hypoxemia requiring supplemental oxygen Polycythemia Nasal septal deviation Nasal mucosa dry Morbid obesity with BMI of 50.0-59.9, adult Hypertension Maxillary sinus polyp Surgical History Surgical History H/O: hysterectomy History of appendectomy Family History Family History Mother Diabetes mellitus Heart attack Hypertension Cerebrovascular accident Sibling Acute myocardial infarction Father Prostate carcinoma Grandparent Congestive heart failure Hypertension Social History Social History (Updated 04/03/25 @ 21:38 by Batsheva Simon APRN) Social History: She is 1 of 10 children. She and her younger brother live together. She is single and has never been and does not have any chil dren. 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 She denies any history of alcohol, tobacco or illicit substance use. Code status: Full code Surrogate decision maker: Dora Peres (sister) Caffeine-green tea, occasional soda Smoking status: Never smoker Second hand tobacco smoke exposure: No Alcohol intake: never Substance use: never Substance use type: does not use Do You Feel Safe in your Home?: Yes Lack of Transportation: No Lack of Food: Never True Current Housing: I Do Not Have Housing Concerned About Future Housing: No Difficulty Paying Gas/Electric Bills: No Difficulty Paying for Meds: No Currently Unemployed: No Education: Associate Degree Difficulty w/ Childcare or Family Care: No Spiritual care concerns: No Meds Home Medications and Allergies Home Medications ?Medication ?Instructions ?Recorded ?Confirmed ?Type lisinopril 20 mg tablet 10 mg PO HS 10/26/24 5 History ipratropium bromide 0.02 % 0.5 mg (2.5 mL) inhalation Q6HRT 02/07/25 04/02/25 Rx solution for inhalation #75 mL nebulizer and compressor #1 ea 02/07/25 04/02/25 Rx azithromycin 250 mg tablet 250 mg PO DAILY #3 tabs 04/02/25 Rx fluticasone propionate 50 2 spray intranasal BID #16 g adal 03/28/25 04/02/25 Rx mcg/actuation nasal spray,suspension guaifenesin 600 mg tablet, 1,200 mg (2 x 600 mg) PO Q1 2HR #30 03/28/25 04/02/25 Rx extended release 12 hr (Mucus tabs Relief ER) loratadine 10 mg tablet 10 mg PO QAM #15 tabs 04/02/25 Rx Allergies Allergy/AdvReac Type Severity Reaction Status Date / Time amoxicillin (From Augmentin) Allergy Intermediate Hives Verified 04/02/25 00:54 clavulanic acid (From Allergy Intermediate Hives Verified 04/02/25 00:54 Augmentin) Penicillins Allergy Intermediate Itching Verified 04/02/25 00:54 Vital Signs Vital Signs - 24 hr 04/01/25 19:21 04/01/25 19:21 04/01/25 20:23 Temperature 97.6 F Pulse Rate 124 H 121 H Respiratory Rate 22 H 20 Blood Pressure 158/130 H Pulse Oximetry 95 95 Oxygen Delivery Nasal Cannula Nasal Cannula Oxygen Flow Rate 5 5 04/01/25 20:36 04/01/25 20:43 04/01/25 20:50 Temperature Pulse Rate 125 H Respiratory Rate 24 H 24 H Blood Pressure Pulse Oximetry 94 100 Oxygen Delivery Nasal Cannula Oxygen Flow Rate 4 04/01/25 21:25 04/01/25 21:29 04/01/25 21:30 Temperature Pulse Rate 118 H 118 H 119 H Respiratory Rate 20 22 H 22 H Blood Pressure Pulse Oximetry 94 Oxygen Delivery Oxygen Flow Rate 04/01/25 21:31 04/01/25 21:45 04/01/25 21:46 Temperature Pulse Rate 124 H 116 H 117 H Respiratory Rate 20 23 H 22 H Blood Pressure 117/68 122/78 Pulse Oximetry 92 94 Oxygen Delivery Oxygen Flow Rate 04/01/25 22:00 04/01/25 22:01 04/01/25 22:15 Temperature Pulse Rate 109 H 117 H 114 H Respiratory Rate 21 H 16 24 H Blood Pressure 117/76 Pulse Oximetry 90 92 Oxygen Delivery Oxygen Flow Rate 04/01/25 22:16 04/01/25 22:40 04/01/25 22:47 Temperature Pulse Rate 114 H 110 H 111 H Respiratory Rate 24 H 27 H 15 Blood Pressure 129/74 Pulse Oximetry 92 91 Oxygen Delivery Oxygen Flow Rate 04/01/25 23:04 04/01/25 23:15 04/01/25 23:16 Temperature Pulse Rate 111 H 109 H 103 H Respiratory Rate 23 H 12 17 Blood Pressure 115/72 Pulse Oximetry 93 91 93 Oxygen Delivery Oxygen Flow Rate 04/02/25 02:24 04/02/25 02:25 04/02/25 02:30 Temperature Pulse Rate 104 H 107 H Respiratory Rate 20 20 Blood Pressure Pulse Oximetry 94 Oxygen Delivery Oxygen Flow Rate 4 04/02/25 03:40 04/02/25 04:00 Temperature Pulse Rate 96 Respiratory Rate Blood Pressure Pulse Oximetry 92 Oxygen Delivery Nasal Cannula Oxygen Flow Rate 4 Exam Const: General: cooperative, healthy appearing, comfortable, no acute distress, well developed, Physically active, average body habitus and well nourished Nutritional Appearance: average body habitus and well nourished Orientation/consciousness: oriented to person, oriented to place, oriented to time and patient oriented x3 Limitations: no limitations Other: The patient repeatedly fell asleep during the history portion. Most of the information was reviewed from previous admission P HENMT: Head: normal to inspection, No palpable skull fracture present and normocephalic Neck: Neck: normal visual inspection and full ROM Chest: Chest palpation & inspection: normal inspection of the chest Resp: Effort & Inspection: normal respiratory effort Auscultation: clear to auscultation bilaterally Percussion: percussion normal Cardio: Palpation: normal PMI Rate: regular rate Rhythm: regular rhythm Heart sounds: S1 normal heart sound present and S2 normal heart sound present Peripheral pulses: Peripheral pulses 2+ throughout GI: Inspection: normal to inspection Percussion: Yes normal to percussion Auscultation: normal bowel sounds Rectal Exam: deferred : General: Yes no CVA tenderness Back/Spine/Pelvis: Back: no CVA tenderness Skin: General skin exam: normal color Lesions: no lesions Rashes: no rashes Trauma: no lacerations or abrasions Wounds: no wounds Hair: normal Nails: normal Neuro: General: oriented to person, oriented to place, oriented to time and patient oriented x3 Cranial nerves: Yes Equal, round and reactive pupils present and Yes Normal hearing present Cognition (Neuro): normal cognition Speech: normal speech Motor exam (neuro): 5/5 motor strength present throughout Sensory Exam: normal sensation Extrem: General: normal to inspection Right upper extremity: normal to inspection and shoulder/upper arm Left upper extremity: normal to inspection and shoulder/upper arm Right lower extremity: normal to inspection Left lower extremity: normal to inspection Psych: Appearance: grossly normal Mental Status: mental status grossly normal Speech and movement: Normal speech and movement present Affect: normal affect Attitude: cooperative Thought process: Normal thought process present Thought content: Yes Normal thought content present Insight: Good insight present (Psych) Judgement: Good judgement present (Psych) H&P: Results Labs Labs: Short CBC 04/01/25 Range/Units 20:32 WBC 21.1 H (4.5-10.0) K/mm3 Hgb 16.1 H (12.0-15.0) g/dL Hct 51.5 H (37.0-47.0) % Plt Count 386 H (150-375) k/mm3 Cardiac Enzymes 04/01/25 04/02/25 Range/Units 20:34 02:16 Troponin I < 0.012 < 0.012 (0.000-0.034) ng/mL Imaging Chest x-ray: Radiologist's impression: ITS Impressions Chest X-Ray 04/01/25 19:57 IMPRESSION: 1. No acute findings of lungs limited portable AP chest. Assessment and Plan Assessment and plan (1) Acute hypoxemic respiratory failure: Code(s): J96.01 - Acute respiratory failure with hypoxia Status: Acute Assessment and Plan: -the patient is a is CO2 retainer. She has chronic hypercapnia. I am unsure if she has had a previous sleep study. She does have hypoventilation syndrome. She is chronically on oxygen at night. The ER physician felt that the patient was having a bronchospasm. I suggested IV magnesium. However she was feeling better and the magnesium was not given. -she follows with the international tax manager and they have been consulted. - unclear if the patient has a nebulizer machine at home. She would benefit from a nebulizer machine. -she has recurrent pneumonia. -her white count was noted to be 21.1, this can be stress related. At however a repeat CBC was ordered for this morning. -continue with the Mucinex -per pulmonology note 03/28/2025 (1) Chronic sinusitis: Code(s): J32.9 - Chronic sinusitis, unspecified Status: Acute Assessment and Plan: Regarding her chronic sinusitis she has declined Flonase, antihistamines, ipratropium nasal spray in the past. She has been followed by ENT and was last seen on 01/19/[address] scan of the sinuses showed moderate pansinusitis. She was prescribed Bactrim and recommended to have bilateral frontal sinus balloon d ilation, bilateral complete ethmoidectomy, bilateral maxillary antrostomy, bilateral inferior turbinate submucous resection , and septoplasty. despite me reminding her to call ENT since 01/19/2025 she has not done this. P.r.n. she will take Sudafed at home. 03/28/2025: Today the patient tells me that her sinuses are 50% back to her normal. Her breathing is back to her normal and she has no rest shortness of breath and her dyspnea on exertion when she walks to the bathroom is improved. Her room air saturations are 95%. Her white blood cell count is 9.2, creatinine is 0.69. Procalcitonin is 0.0, BNP is 63. She tells me she is ready for discharge. Regarding her chronic sinusitis the patient has never had a reliable trial of antihistamine and entered nasal corticosteroids because she has been reluctant to this treatment. She now agrees to this treatment as an improved on Flonase, Claritin, guaifenesin and ceftriaxone and azithromycin. Patient tells me she is ready for discharge and she can be discharged on these pulmonary medications: Azithromycin 250 mg p.o. q.day x3 days last dose 04/01/2025 Ipratropium nebulizer 0.5 mg q.6 hours Budesonide 500 mcg nebulized b.i.d. Claritin 10 mg a day Flonase 2 sprays each nostril twice a day Guaifenesin 1200 mg p.o. b.i.d. Oxygen 2 L at night. No oxygen at rest or with activity per formal home O2 assessment which was performed on 03/28/2025. Follow-up in the Pulmonary Clinic on 04/04/2025 at 11:30 a.m.. I have told the patient she must follow-up with ENT as an outpatient. I have told the patient she must follow-up with a dentist for teeth removal in the future. She may benefit from magnesium and nebulizer treatments at home. She may also benefit from a sleep study. She most likely has obesity hypoventilation syndrome. Her white count was noted to be 21.1. Repeat CBC today. Possible stress induced? (2) Pneumonia: Qualifiers: Laterality: bilateral Lung location: upper lobe of lung Pneumonia type: due to unspecified organism Qualified Code(s): J18.9 - Pneumonia, unspecified organism Code(s): J18.9 - Pneumonia, unspecified organism Status: Acute Assessment and Plan: -continue with Mucinex and azithromycin -sputum cultures are pending. -she has had recurring pneumonia. (3) Hypertension: Qualifiers: Hypertension type: primary hypertension Qualified Code(s): I10 - Essential (primary) hypertension Code(s): I10 - Essential (primary) hypertension Status: Chronic Assessment and Plan: -continue lisinopril Quality VTE Prophylaxis VTE prophylaxis: mechanical ordered
--- NOTE | 2025-04-02 06:05 | ECG_ITS ---
Test Date: 2025-04-02 02:38:26 Measurements Intervals [place] Rate: 98 P: 19 DE: 144 QRS: 23 QRSD: 90 T: 60 QT: 380 QTc: 486 Interpretive Statements SINUS RHYTHM POSSIBLE INFERIOR MYOCARDIAL INFARCTION , PROBABLY OLD [30 ms Q WAVE IN II/aVF] Compared to ECG 04/01/2025 19:44:00 Myocardial infarct finding now present Sinus tachycardia no longer present Electronically Signed On 04-02-2025 06:42:46 [employer]OX [employer] by Liliam Pillai M.D.
--- NOTE | 2025-04-02 06:05 | ECG_ITS ---
Test Date: 2025-04-02 07:33:20 Measurements Intervals [place] Rate: 100 P: 0 CT: 0 QRS: 26 QRSD: 82 T: 67 QT: 347 QTc: 449 Interpretive Statements sinus TACHYCARDIA ARTIFACT IN LEAD(S) Electronically Signed On 04-02-2025 12:06:03 [employer]CTOR [employer] by Liliam Pillai M.D.
[2025-04-02 06:40] LABS: Hematocrit 49.1 % (37.0-47.0); Hemoglobin 15.1 g/dL (12.0-15.0); Mean Corpuscular HGB Conc 30.8 g/dl (32-36); Mean Corpuscular Hemoglobin 26.4 pg (26-34); Mean Corpuscular Volume 86.0 fl (80-100); Platelet Count Result 322 k/mm3 (150-375); Red Blood Count 5.71 M/mm3 (4.2-5.4); White Blood Count 8.0 K/mm3 (4.5-10.0)
[2025-04-02 06:42] LABS: Troponin I < 0.012 ng/mL (0.000-0.034)
[2025-04-02 06:47] LABS: Anion Gap 8 mmol/L (4-12); Blood Urea Nitrogen 17 mg/dL (7-17); Calcium 9.2 mg/dL (8.4-10.2); Carbon Dioxide 29 mmol/L (22-30); Chloride 100 mmol/L (98-107); Estimated Glomerular Filt Rate > 60; Glucose 167 mg/dL (65-110); Potassium 4.3 mmol/L (3.4-5.0); Sodium 137 mmol/L (137-145)
[2025-04-02 07:32] LABS: CRP 3.3 mg/dL (<1.0)
[2025-04-02 09:26] LABS: Procalcitonin 0.1 ng/mL
--- NOTE | 2025-04-02 09:30 | PM.CNPUL ---
Assessment and Plan Assessment and plan (1) Chronic sinusitis: Code(s): J32.9 - Chronic sinusitis, unspecified Status: Acute Assessment and Plan: Regarding her chronic sinusitis she has declined Flonase, antihistamines, ipratropium nasal spray in the past. She has been followed by ENT and was last seen on 01/19/[address] scan of the sinuses showed moderate pansinusitis. She was prescribed Bactrim and recommended to have bilateral frontal sinus balloon dilation, bilateral complete ethmoidectomy, bilateral maxillary antrostomy, bilateral inferior turbinate submucous resection , and septoplasty. despite me reminding her to call ENT since 01/19/2025 she has not done this. P.r.n. she will take Sudafed at home. 03/28/2025: Today the patient tells me that her sinuses are 50% back to her normal. Her breathing is back to her normal and she has no rest shortness of breath and her dyspnea on exertion when she walks to the bathroom is improved. Her room air saturations are 95%. Her white blood cell count is 9.2, creatinine is 0.69. Procalcitonin is 0.0, BNP is 63. She tells me she is ready for discharge. Regarding her chronic sinusitis the patient has never had a reliable trial of antihistamine and entered nasal corticosteroids because she has been reluctant to this treatment. She now agrees to this treatment as an improved on Flonase, Claritin, guaifenesin and ceftriaxone and azithromycin. 04/02/2025: Patient is convinced that the medicines are making her worse. She says the antihistamines make her dizzy and the Flonase does not help her congestion and makes her worse. Patient was seen by ENT on 01/19/2025. plan: I will discontinue Claritin and Flonase. I will order a CT scan of the sinuses and follow the patient clinically. patient has declined again to call ENT for follow-up appointment. May consider ENT consult in the hospital. Discussed with Neena Bailey, will follow with you. (2) Daytime hypersomnia: Code(s): G47.10 - Hypersomnia, unspecified Status: Acute Assessment and Plan: Patient is morbidly obese with a BMI of 53.0, she snores, no sleeping partner but has never been told she stops breathing in her sleep, she takes 1 nap a day. ABG on 3 L 7.40/46/69. TSH 4.92 on 10/22/2023. patient has nocturnal hypoxia on room air which was corrected with 2 L nasal cannula. 12/15/24: Patient had an overnight oximetry on room air with recording duration of 7 hours and 22 minutes. Average saturation 89%. Low saturation 81%. Time with saturation less than or equal to 88% was 153 minutes. Oxygen desaturation index 6.2. 12/16/24: Patient had an overnight oximetry on 2 L with recording duration 6 hours and 29 minutes. Average saturation 94%. Low saturation 88%. Time with saturation less than or equal to 88% was 0 minutes. Oxygen desaturation index 1.5. 01/06/25: Plan: I will order split night sleep study, I have told the patient not to take a nap on the day of the study. I will prescribed Lunesta 2 mg to take with her to the sleep lab in case she has insomnia. 01/19/25: Sleep Lab called the patient to schedule and the patient stated she would call the Sleep lab back when she was ready to schedule her sleep study. 03/08/25: Patient says she has not called the Sleep Lab back to schedule her appointment because she is concerned that if she has sleep apnea a mask will irritate her sinuses. The sister who is in the room says that she will never do a sleep study. Plan: I again recommend the patient have a split night sleep study to assess for untreated obstructive sleep apnea. The patient says she will consider this. 03/28/2025: On discharge I paid told the patient to call the sleep lab to reschedule her sleep appointment. 04/02/2025: The patient has not scheduled her split night sleep study. On presentation patient had a blood gas of 7.36/55/68. Last admission her PaCO2 after she had improved was 49 and she did not qualify for nocturnal noninvasive ventilation for obesity hypoventilation syndrome. plan: I will continue 2 L nasal cannula at night. Once the patient is back to her baseline will check an ABG to assess if she has obesity hypoventilation syndrome. (3) Reactive airway disease: Code(s): J45.909 - Unspecified asthma, uncomplicated Status: Acute Assessment and Plan: Patient has a history of reactive airways disease with intermittent wheezing. PFTs demonstrate prism but no fixed obstruction. She has not been able to tolerate multiple inhalers because of jitteriness and tachycardia and beta agonists have been held in the past. Workup for autoimmune disease, connective tissue disorder and immuno deficiency have been largely negative. other factors that continue image to her reactive airways disease include multiple dental caries and she has declined to set up a dental appointment despite multiple reminders by myself. Possible cat allergies and she has cats. Untreated obstructive sleep apnea and she has failed to schedule her sleep study despite multiple reminders for her to do this by myself. 02/07/2025:? Rheumatoid factor less than 12, anti CCP antibody 17, GALILEA screen borderline positive at 1:80, anti DNA DS antibody negative, CLINICAL LABORATORY AIDE antibody, Zayas antibody, Zayas-CLINICAL LABORATORY AIDE antibodies, anti scleroderma 70 antibodies, anti SSA, anti SSB, anti chromatin antibodies, anti ribosomal P antibodies, anti Rosie 1 antibodies, anti centromere B antibodies all negative.? C Anca antibody negative, atypical p-ANCA antibody negative, p-ANCA antibody negative. ?Aldolase 4.2, negative, total CPK 40, hypersensitivity pneumonitis panel negative.? Myositis panel negative. 02/05/2025:? Total IgG = 1270.? IgG subclass 1 = 695.? IgG subclass 2 = 382.? IgG subclass 3 = 46.? IgG subclass 4 = 75. All normal. Total IgG 1266.? Total IgA 434 (elevated), total IgM 66.? Total IgE 50.? IgA elevated and others are normal. 02/11/25:? Referral placed to Allergy and immunology, Dr. Kong, for recurrent sinusitis, pulmonary infections and only 2 of 23 strep pneumonia titers positive. We confirmed Dr. Maddox office has all the appropriate documentation and they are waiting on the patient to call them to make an appointment and she is still not done this despite multiple reminders. Plan on 03/28/2025 was to give her a trial of nebulized ipratropium and nebulized budesonide. She took 1 nebulized ipratropium treatment On 04/01 at home and said that she had shortness of breath and shaking. 04/02/2025: Patient has been getting DuoNebs and says that they do make her shake and she is tachycardic today. Since discharge On 03/28/2025 she still has not called Allergy and immunology to schedule appointment. Plan: She had wheezing on presentation and I will continue Solu-Medrol 60 q.6. I will discontinue beta agonist. I will discontinue azithromycin. I will place her on ipratropium nebulizer q.6 hours. I will continue guaifenesin 1200 mg p.o. b.i.d.. History of Present Illness History of Present Illness Consult date: 04/02/25 Chief complaint: Acute hypoxic respiratory failure Narrative: 04/02/2025: This is a new pulmonary consult for sinusitis and hypoxia. 64-year-old with a history of chronic sinusitis, reactive airways disease, pneumonia, daytime hypersomnia, morbid obesity with a BMI of 50.2. Patient is followed in the [facility] in last seen on 03/08/2025: On 03/08/2025, regarding her pneumonia, She has had 3 pneumonias on 10/29/2024, 12/16/2024 and 02/05/2025. She is admitted treated with IV antibiotics and improves. She goes home finishing a course of oral levofloxacin on 12/16/2024 and 02/05/2025 and does well until she stops taking her antibiotics. She then developed sinus congestion and will worsening postnasal drip followed by respiratory symptoms. Regarding her chronic dyspnea on exertion she had PFTs with prism, no significant bronchodilator response, hyperinflation and normal DLCO that was increased when adjusted for alveolar volume. She is a never smoker. she said she has had multiple reactions to previous inhalers and is resistant to taking medicines and oxygen. She did say that bronchodilators help her but she cannot tolerate short-acting or long-acting beta agonists and I gave her therapeutic trial of nebulized ipratropium and nebulized budesonide 500 twice a day. Regarding her chronic sinusitis she has declined Flonase, antihistamines, ipratropium nasal spray in the past. She has been followed by ENT and was last seen on 01/19/[address] scan of the sinuses showed moderate pansinusitis. She was prescribed Bactrim and recommended to have bilateral frontal sinus balloon dilation, bilateral complete ethmoidectomy, bilateral maxillary antrostomy, bilateral inferior turbinate submucous resection , and septoplasty. Despite me reminding her to call ENT since 01/19/2025 she has not done this. P.r.n. she will take Sudafed at home. Patient has very poor dentition with sore cracked and rotten teeth and has not made it appointment with a dentist despite multiple reminders by myself. She says the teeth cost sinus pain and congestion as well. Regarding her daytime hypersomnia split night sleep study was ordered on 01/03/2025 and the sleep blood called the patient but she declined to schedule.? Her sister in the room said she will never do a sleep study.? Patient said she would consider this and I recommended 2 L at night.? Phoenix score was 1.?? Weight was 257.7 lb.? 02/07/2025:? For mosaic attenuation and chronic infiltrates:? Rheumatoid factor less than 12, anti CCP antibody 17, GALILEA screen borderline positive at 1:80, anti DNA DS antibody negative, CLINICAL LABORATORY AIDE antibody, Zayas antibody, Zayas-CLINICAL LABORATORY AIDE antibodies, anti scleroderma 70 antibodies, anti SSA, anti SSB, anti chromatin antibodies, anti ribosomal P antibodies, anti Rosie 1 antibodies, anti centromere B antibodies all negative.? C Anca antibody negative, atypical p-ANCA antibody negative, p-ANCA antibody negative. ?Aldolase 4.2, negative, total CPK 40, hypersensitivity pneumonitis panel negative.? Myositis panel negative. 02/05/2025:? Total IgG = 1270.? IgG subclass 1 = 695.? IgG subclass 2 = 382.? IgG subclass 3 = 46.? IgG subclass 4 = 75. All normal. Total IgG 1266.? Total IgA 434 (elevated), total IgM 66.? Total IgE 50.? IgA elevated and others are normal. 02/11/25:? Referral placed to Allergy and immunology, Dr. Kong, for recurrent sinusitis, pulmonary infections and only 2 of 23 strep pneumonia titers positive. We confirmed Dr. Maddox office has all the appropriate documentation and they are waiting on the patient to call them to make an appointment and she is still not done this despite multiple reminders. 03/25/2025 through 03/28/2025:? Admitted to [facility] with worsening sinus congestion, worsening postnasal drip unresponsive to Sudafed, minimal nebulization use at home. Patient was seen in the emergency department with a white blood cell count 70 moist 0, 2.5 L nasal cannula ABG 7.38/49/67. CT angiogram of the chest showed no PE and compared to 12/12/2024 the right upper lobe infiltrates and improved and the left upper lobe infiltrates were worse. Patient was admitted to the hospital and treated with ceftriaxone, azithromycin, DuoNebs and budesonide nebulizer. She was also in agreement to Claritin 10 a day, Flonase 2 sprays each nostril twice a day and guaifenesin 1200 p.o. b.i.d..? Patient had a home O2 assessment on 03/28/2025 and required no oxygen at rest or with activity. 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 She did continue Claritin 10 and Flonase 2 sprays each nostril and guaifenesin 1200 mg p.o. b.i.d. and 2 L at night. Patient was in her usual state of health on 03/29 and 03 30. On 03/30 she went shopping and used to card in the store and was exposed to cold air. She said she slept okay on 03/30. On 03/31/2025 she woke up and felt she was shaky and had worsening balance. She had no rest shortness of breath, some dyspnea on exertion, wheezing, slightly more postnasal drip and a little bit of phlegm production. Early she slept poorly. 04/01/2025: Patient states her shakiness, dyspnea on exertion small amount of wheezing, same postnasal drip and same phlegm production with present and she presented to the ER. In the emergency department her blood pressure is 158/130, heart rate 124, respirations 22, saturations on 5 L nasal cannula 95%. White blood cell count was 21.1 with eosinophils 1% equals 211 per micro L. creatinine 0.65. BNP 1-155, troponin negative x3, D-dimer 0.31, COVID influenza and RSV RT PCR assay negative. ABG on 4 L 7.36/55/68. Chest x-ray was clear. Patient was admitted to the hospital and treated for reactive airways disease with Solu-Medrol, DuoNebs and her azithromycin 250 q.day was continued. 04/02/2025: Overall the patient states she feels a little bit better. In her mind all of her problems were started by the antihistamines which she says makes her shaky and dizzy. She is also uncomfortable with any nasal inhalers and wishes the Claritin and Flonase to be discontinued. She denies fever, phlegm from the chest, hemoptysis. She does have persistent postnasal drip. When I enter the room she was on 2 L oxygen with saturation 95% I decreased her to room air her saturations were 92%. Her weight is 112.8 with a overweight on 03/25/2025 of 112.2 kg. DATA: DATA: 03/28/2025: Home O2 assessment: Rest room air saturation 95%. Exercise room air saturation 93%. Patient ambulated 122 meters. Patient requires no oxygen at rest and no with activity. 03/25/25: CTA CHEST CLINICAL HISTORY: shortness of breath, tachy, r/o pe . COMPARISON: Chest x-ray today CTA chest 12/12/2024 TECHNIQUE: Helical CTA performed from thoracic inlet to upper abdomen IV contrast information not listed in PACS Coronal, sagittal reformats. Multiplanar MIPS CT images acquired with automatic exposure control for dose reduction DLP: 757 mGy-cm FINDINGS: Respiratory motion artifact could obscure small PE. Pulmonary arteries: No PE identified. Thoracic Aorta: No dissection or aneurysm. Heart/pericardium: Unremarkable. RV/LV ratio: Normal. Lungs/Pleura: Scattered foci bilateral airspace disease, worst right upper lobe. Tracheobronchial tree: Patent. Nodes: No enlarged nodes. Small mediastinal and hilar nodes Bones: No acute bony abnormality. Soft tissues: Unremarkable. Visualized upper abdomen: Cirrhosis, hepatomegaly, steatosis. Gallstones. IMPRESSION: 1. Multifocal bilateral pneumonitis and/or airspace disease, progressed from December. 2. No PE identified. 02/07/2025:? Rheumatoid factor less than 12, , anti CCP antibody 17, Anca screen borderline at positive 1:80, anti DNA DS antibody negative, CLINICAL LABORATORY AIDE antibody, Zayas antibody, Zayas-CLINICAL LABORATORY AIDE antibodies, anti scleroderma 70 antibodies, anti SSA, anti SSB, anti chromatin antibodies, anti ribosomal P antibodies, anti Rosie 1 antibodies, anti centromere B antibodies all negative.? C Anca antibody negative, atypical p-ANCA antibody negative, p-ANCA antibody negative.? Aldolase 4.2, negative, total CPK 40, hypersensitivity pneumonitis panel negative.? Myositis panel pending. 02/05/2025:? Total IgG = 1270.? IgG subclass 1 = 695.? IgG subclass 2 = 382.? IgG subclass 3 = 46.? IgG subclass 4 = 75. All normal. Total IgG 1266.? Total IgA 434 (elevated), total IgM 66.? Total IgE 50.? IgA elevated and others are normal. 01/21/25:? Strep pneumonia titers:? Strep pneumonia 2 = 2.8 (positive greater than 1.3).? Strep pneumonia 14= 2.8, (positive greater than 1.3).? Strep pneumonia 1, 3, 4, 5, 8, 9, 12, 17, 19, 20, 22, 23, 26, 34, 43, 51, 54, 56, 57, 68, and 70 all are low. On 12/14/2024:? Total IgG 1248, total IgA 425.? Total IgM 63. --------- 02/05/25: EXAMINATION: CT diagnostic chest wo con, 02/05/2025 12:50 CDT HISTORY: pneumonia COMPARISON: No comparisons available. TECHNIQUE: CT scan of the chest was performed without IV contrast. One or more of the following dose reduction techniques were used: automated exposure control, adjustment of the mA and/or kV according to patient size, use of iterative reconstruction technique. FINDINGS: No significant coronary calcification is present ([id number]) LUNGS: No tracheomalacia. No bronchiectasis. Minimal emphysematous changes. Minimal pulmonary fibrotic changes. There are bilateral groundglass attenuation infiltrates with mild associated bronchial wall thickening most marked involving the upper lobes. Elevation noted of the right hemidiaphragm. HEART AND PERICARDIUM: Within normal limits. AORTA: Normal caliber aorta. ADENOPATHY/MEDIASTINUM: None. LIMITED VIEWS OF THE ABDOMEN: Cholelithiasis. OSSEOUS STRUCTURES: No acute osseous abnormality.No suspicious lesions. OVERLYING SOFT TISSUES: Unremarkable. THYROID: The thyroid is unremarkable. IMPRESSION: Mild bilateral bronchopneumonia 12/16/24: Patient had an overnight oximetry on 2 L with recording duration 6 hours and 29 minutes. Average saturation 94%. Low saturation 88%. Time with saturation less than or equal to 88% was 0 minutes. Oxygen desaturation index 1.5. 12/15/24: Patient had an overnight oximetry on room air with recording duration of 7 hours and 22 minutes. Average saturation 89%. Low saturation 81%. Time with saturation less than or equal to 88% was 153 minutes. Oxygen desaturation index 6.2. 12/15/24: Echo Summary 1. Definity contrast administered improved wall motion interpretation. 2. Left ventricular chamber dimension is normal. 3. Left ventricular systolic function is normal, estimated at 65-70. 4. There is mild concentric increased left ventricular wall thickness. 5. The left ventricular diastolic function is grade I diastolic dysfunction. 6. E/e' 11 is mildly elevated. 7. Dilated inferior vena cava with >50% collapse upon inspiration consistent with elevated right atrial pressure, 10 mmHg. Left Ventricle E/e' 11 is mildly elevated. Left ventricular chamber dimension is normal. Left ventricular systolic function is normal, estimated at 65-70. There is mild concentric increased left ventricular wall thickness. The left ventricular diastolic function is grade I diastolic dysfunction. Definity contrast administered improved wall motion interpretation. Right Ventricle Right ventricular chamber dimension is not well visualized. Left Atria Left atrial chamber dimension is normal. Right Atria Right atrial chamber dimension is normal. DATE: 12/12/2024 18:37 EXAMINATION: CTA chest PE protocol INDICATION: hypoxia, tachy, recent hospitalization COMPARISON: None. FINDINGS: Lung parenchyma and airways: Considerable motion artifact. Calcified right lower lobe granuloma. Subsegmental areas of peribronchovascular consolidation and groundglass in the bilateral upper lobes. Pleura: Unremarkable. Thoracic inlet, axillae and chest wall: Unremarkable. Thoracic aorta: No significant dilation. No dissection. Minimal arch calcification. Mediastinum: Dilated central pulmonary arteries. Calcified nodes. Heart and pericardium: Normal. Coronary artery calcifications: Absent. Upper abdomen: Cholelithiasis, without inflammatory change. Small hiatal hernia. Mild bilateral renal cortical thinning and scarring. Bones: No acute osseous finding. Pulmonary arteries: Study quality: Significant motion artifact, beam hardening, and quantum mottle limits this study. Nondiagnostic imaging of the subsegmental pulmonary arteries. No central or definite segmental pulmonary emboli detected. IMPRESSION: Limited examination. No central embolus. No definite segmental embolus noting that evaluation is somewhat limited. Nondiagnostic imaging of the subsegmental pulmonary arteries. Upper lobe opacities may represent edema or infection. Review of Systems Constitutional: Constitutional: Reports no additional constitutional complaints Eyes: Eyes: Reports no additional eye complaints ENT: Reports system reviewed and no additional complaints, except as documented Cardiovascular: Cardiovascular: Reports no additional cardiovascular complaints Respiratory: Respiratory: Reports no additional respiratory complaints Gastrointestinal: Gastrointestinal: Reports no additional gastrointestinal complaints Musculoskeletal: Musculoskeletal: Reports no additional musculoskeletal complaints Neurologic: Reports system reviewed and no additional complaints, except as documented Psychiatric: Psychiatric: Reports no additional psychiatric complaints Endocrine: Endocrine: Reports no additional endocrine complaints Hematologic/Lymphatic: Hematologic/Lymphatic: Reports no additional hematologic/lymphatic complaints Allergic/Immunologic: Allergic/Immunologic: Reports no additional allergic/immunologic complaints [facility] Past Medical History Medical History Hypoxemia requiring supplemental oxygen Polycythemia Nasal septal deviation Nasal mucosa dry Morbid obesity with BMI of 50.0-59.9, adult Hypertension Maxillary sinus polyp Surgical History Surgical History H/O: hysterectomy History of appendectomy Family History Family History Mother Diabetes mellitus Heart attack Hypertension Cerebrovascular accident Sibling Acute myocardial infarction Father Prostate carcinoma Grandparent Congestive heart failure Hypertension Social History Social History Social History: She is 1 of 10 children. Her and her younger brother live together. She is single and never been and does not have any children. 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 She denies any history of alcohol, tobacco or illicit substance use. Code status: Full code Surrogate decision maker: Dora Peres (sister) Caffeine-green tea, occasional soda Smoking status: Never smoker Second hand tobacco smoke exposure: No Alcohol intake: never Substance use: never Substance use type: does not use Do You Feel Safe in your Home?: Yes Lack of Transportation: No Lack of Food: Never True Current Housing: I Do Not Have Housing Concerned About Future Housing: No Difficulty Paying Gas/Electric Bills: No Difficulty Paying for Meds: No Currently Unemployed: No Education: Associate Degree Difficulty w/ Childcare or Family Care: No Spiritual care concerns: No Meds Home Medications and Allergies Home Medications ?Medication ?Instructions ?Recorded ?Confirmed ?Type lisinopril 20 mg tablet 10 mg PO HS 10/26/24 04/02/25 History ipratropium bromide 0.02 % 0.5 mg (2.5 mL) inhalation Q6HRT 02/07/25 04/02/25 Rx solution for inhalation #75 mL nebulizer and compressor #1 ea 02/07/25 04/02/25 Rx azithromycin 250 mg tablet 250 mg PO DAILY #3 tabs 03/28/25 04/02/25 Rx fluticasone propionate 50 2 spray intranasal BID #16 grams 03/28/25 04/02/25 Rx mcg/actuation nasal spray,suspension guaifenesin 600 mg tablet, 1,200 mg (2 x 600 mg) PO Q12HR #30 03/28/25 04/02/25 Rx extended release 12 hr (Mucus tabs Relief ER) loratadine 10 mg tablet 10 mg PO QAM #15 tabs 03/28/25 04/02/25 Rx Allergies Allergy/AdvReac Type Severity Reaction Status Date / Time amoxicillin (From Augmentin) Allergy Intermediate Hives Verified 04/02/25 00:54 clavulanic acid (From Allergy Intermediate Hives Verified 04/02/25 00:54 Augmentin) Penicillins Allergy Intermediate Itching Verified 04/02/25 00:54 Vital Signs Vital Signs - 24 hr 04/01/25 19:21 04/01/25 19:21 04/01/25 20:23 Temperature 36.4 C Pulse Rate 124 H 121 H Respiratory Rate 22 H 20 Blood Pressure 158/130 H Pulse Oximetry 95 95 Oxygen Delivery Nasal Cannula Nasal Cannula Oxygen Flow Rate 5 5 Fraction of Inspired Oxygen 04/01/25 20:36 04/01/25 20:43 04/01/25 20:50 Temperature Pulse Rate 125 H Respiratory Rate 24 H 24 H Blood Pressure Pulse Oximetry 94 100 Oxygen Delivery Nasal Cannula Oxygen Flow Rate 4 Fraction of Inspired Oxygen 04/01/25 21:25 04/01/25 21:29 04/01/25 21:30 Temperature Pulse Rate 118 H 118 H 119 H Respiratory Rate 20 22 H 22 H Blood Pressure Pulse Oximetry 94 Oxygen Delivery Oxygen Flow Rate Fraction of Inspired Oxygen 04/01/25 21:31 04/01/25 21:45 04/01/25 21:46 Temperature Pulse Rate 124 H 116 H 117 H Respiratory Rate 20 23 H 22 H Blood Pressure 117/68 122/78 Pulse Oximetry 92 94 Oxygen Delivery Oxygen Flow Rate Fraction of Inspired Oxygen 04/01/25 22:00 04/01/25 22:01 04/01/25 22:15 Temperature Pulse Rate 109 H 117 H 114 H Respiratory Rate 21 H 16 24 H Blood Pressure 117/76 Pulse Oximetry 90 92 Oxygen Delivery Oxygen Flow Rate Fraction of Inspired Oxygen 04/01/25 22:16 04/01/25 22:40 04/01/25 22:47 Temperature Pulse Rate 114 H 110 H 111 H Respiratory Rate 24 H 27 H 15 Blood Pressure 129/74 Pulse Oximetry 92 91 Oxygen Delivery Oxygen Flow Rate Fraction of Inspired Oxygen 04/01/25 23:04 04/01/25 23:15 04/01/25 23:16 Temperature Pulse Rate 111 H 109 H 103 H Respiratory Rate 23 H 12 17 Blood Pressure 115/72 Pulse Oximetry 93 91 93 Oxygen Delivery Oxygen Flow Rate Fraction of Inspired Oxygen 04/02/25 02:24 04/02/25 02:25 04/02/25 02:30 Temperature Pulse Rate 104 H 107 H Respiratory Rate 20 20 Blood Pressure Pulse Oximetry 94 Oxygen Delivery Oxygen Flow Rate 4 Fraction of Inspired Oxygen 04/02/25 03:40 04/02/25 04:00 04/02/25 05:25 Temperature 36.3 C L Pulse Rate 96 100 Respiratory Rate 17 Blood Pressure 136/83 Pulse Oximetry 92 94 Oxygen Delivery Nasal Cannula Oxygen Flow Rate 4 Fraction of Inspired Oxygen 04/02/25 07:14 04/02/25 07:14 04/02/25 07:20 Temperature Pulse Rate 90 90 94 Respiratory Rate 20 20 20 Blood Pressure Pulse Oximetry 94 Oxygen Delivery Nasal Cannula Oxygen Flow Rate 2 Fraction of Inspired Oxygen 28 Exam Const: General: cooperative and comfortable Orientation/consciousness: oriented to person, oriented to place and oriented to time Other: Morbidly obese HENMT: Head: normal to inspection Ears: hearing grossly normal bilaterally Other: multiple dental caries with no fluctuating abscess felt Eyes: General: appearance normal, both eyes and all related structures Neck: Neck: normal visual inspection Chest: Chest palpation & inspection: normal inspection of the chest Resp: Effort & Inspection: normal respiratory effort and able to speak in complete sentences Auscultation: no crackles, no rales, no rhonchi, no wheezes and lung sounds not diminished Other: no wheezes this morning Cardio: Jugular venous distension: no JVD GI: Inspection: normal to inspection GI Palp: No abdominal tenderness Skin: General skin exam: normal color Neuro: General: oriented to person, oriented to place and oriented to time Extrem: General: normal to inspection Psych: Appearance: grossly normal Results Laboratory Findings 04/02/25 05:37 04/02/25 05:41 ABG, PT/INR, D-dimer: ABG ABG pH 7.363 (7.350-7.450) 04/01/25 20:02 ABG pCO2 55.0 mmHg (35.0-45.0) H 04/01/25 20:02 ABG pO2 68.1 mmHg (80.0-100.0) L 04/01/25 20:02 ABG O2 Saturation 92.7 % (95.0-100.0) L 04/01/25 20:02 PT/INR, D-dimer PT 13.7 Seconds (11.1-14.7) 04/01/25 20:34 INR 1.0 04/01/25 20:34 D-Dimer 0.31 ug/mL (<0.48) 04/01/25 20:34 Abnormal lab findings: Abnormal Labs 04/01/25 04/01/25 04/01/25 20:02 20:32 20:34 WBC 21.1 H RBC 6.00 H Hgb 16.1 H Hct 51.5 H MCHC 31.3 L Plt Count 386 H Neutrophils % (Manual) 84 H Lymphocytes % (Manual) 9.0 L Abs Neuts (Manual) 17.93 H Abs Monocytes (Manual) 1.05 H ABG pCO2 55.0 H ABG pO2 68.1 L ABG HCO3 30.6 H ABG O2 Saturation 92.7 L Creatinine Glucose C-Reactive Protein NT-Pro-B Natriuret Pep 155 H 04/02/25 04/02/25 05:37 05:41 WBC RBC 5.71 H Hgb 15.1 H Hct 49.1 H MCHC 30.8 L Plt Count Neutrophils % (Manual) Lymphocytes % (Manual) Abs Neuts (Manual) Abs Monocytes (Manual) ABG pCO2 ABG pO2 ABG HCO3 ABG O2 Saturation Creatinine 0.65 L Glucose 167 H C-Reactive Protein 3.3 H NT-Pro-B Natriuret Pep Diagnostic Findings Additional studies: ITS Impressions Chest X-Ray 04/01/25 19:57 IMPRESSION: 1. No acute findings of lungs limited portable AP chest.
[2025-04-02] MEDS: AZITHROMYCIN 250 MG TABLET PO (09:32)
[2025-04-02] MEDS: guaiFENesin 12 HR 600 MG TABCR 1200 MG PO ×2 (09:32→21:23)
[2025-04-02] MEDS: IPRATROPIUM BR 0.02% INH SOLN 0.5 MG/2.5 ML VIAL INHALATION ×2 (15:08→20:59)
--- NOTE | 2025-04-02 16:13 | P.PNCROSS_ITS ---
Event Note Event Note Event Note: Patient seen by previous provider same day. I follow up assessment she was co mfortable sitting along side of the bed comfortable at time of visit still on supplemental oxygen with mild productive cough. I also discussed current findings and treatment plan with Dr. Whittington with pulmonology. Medication is limited as patient has requested not to take antihistamine or Flonase to assist with her chronic Sinusitis and has not yet followed up with ENT. Patient likely with obesity induced hypoventilation syndrome and was suppose to have a sleep study outpatient but reported she has yet to do so. I as discussed due believe some of patient respiratory concerns and issues are partly to due with her chronic sinusitis with postnasal drip and deviated septum may need to consult ENT for evaluation and recommendations. Currently no WBC, CXR clear and oxygen requirement at 2L NC
[2025-04-03] VITALS (19 sets, daily range): BP systolic 126–170; BP diastolic 66–86; PULSE 86–111; RESP 18–20; TEMP 36.7–36.9; O2SAT 91–95
[2025-04-03] MEDS: IPRATROPIUM BR 0.02% INH SOLN 0.5 MG/2.5 ML VIAL INHALATION ×4 (02:24→20:24)
[2025-04-03 05:41] LABS: Hematocrit 48.4 % (37.0-47.0); Hemoglobin 14.8 g/dL (12.0-15.0); Mean Corpuscular HGB Conc 30.6 g/dl (32-36); Mean Corpuscular Hemoglobin 26.7 pg (26-34); Mean Corpuscular Volume 87.2 fl (80-100); Platelet Count Result 278 k/mm3 (150-375); Red Blood Count 5.55 M/mm3 (4.2-5.4); White Blood Count 14.7 K/mm3 (4.5-10.0)
[2025-04-03 05:55] LABS: Anion Gap 9 mmol/L (4-12); Blood Urea Nitrogen 22 mg/dL (7-17); Calcium 9.4 mg/dL (8.4-10.2); Carbon Dioxide 25 mmol/L (22-30); Chloride 103 mmol/L (98-107); Estimated Glomerular Filt Rate > 60; Glucose 154 mg/dL (65-110); Potassium 4.7 mmol/L (3.4-5.0); Sodium 137 mmol/L (137-145)
[2025-04-03] MEDS: guaiFENesin 12 HR 600 MG TABCR 1200 MG PO ×2 (09:02→20:33)
--- NOTE | 2025-04-03 09:07 | P.PNIM_ITS ---
Progress Note: A&P Assessment and Plan (1) Acute on chronic respiratory failure with hypoxia and hypercapnia: Code(s): J96.21 - Acute and chronic respiratory failure with hypoxia; J96.22 - Acute and chronic respiratory failure with hypercapnia Status: Acute Assessment and Plan: Patient recently admitted and treated for bilateral pneumonia with frequent recurrences likely secondary to patient's chronic sinusitis and postnasal drip. I also discussed current findings and treatment plan with Dr. Whittington pulmonology. Medication is limited as patient has requested not to take antihistamine or Flonase to assist with her chronic Sinusitis and has not yet followed up with ENT. Patient likely with obesity induced hypoventilation syndrome and was suppose to have a sleep study outpatient but reported she has yet to do so. * Pulmonology following please refer to their consult notes for full timeline and treatments per patient diagnosis including attempted treatments and recommendations * Sputum order * Legionella/pneumonphila Ur * WBC was 21.1 on admission likely due to steroids POA, CXR clear after discussion with Dr. Whittington do not believe to be Pneumonia will monitor closely d/C ABX at this time * continue with the Mucinex * methylprednisone 60 mg IV push q.6 * Flonase and Claritin discontinued as requested from patient she does not want to take these she feels they are worsening her problems * Oxygen 2 L at night. No oxygen at rest or with activity per formal home O2 assessment which was performed on 03/28/2025. * Patient is also reluctant on needing supplemental oxygen concern she will b ecome dependent on it. A sleep study has been recommended on multiple visit she currently is reluctant to follow-up. (2) Chronic sinusitis: Code(s): J32.9 - Chronic sinusitis, unspecified Status: Acute Assessment and Plan: Per Pulmonology: Regarding her chronic sinusitis she has declined Flonase, antihistamines, ipratropium nasal spray in the past. She has been followed by ENT and was last seen on 01/19/[address] scan of the sinuses showed moderate pansinusitis. She was prescribed Bactrim and recommended to have bilateral frontal sinus balloon dilation, bilateral complete ethmoidectomy, bilateral maxillary antrostomy, bilateral inferior turbinate submucous resection , and septoplasty. despite me reminding her to call ENT since 01/19/2025 she has not done this. P.r.n. she will take Sudafed at home. After speaking with patient she stated to me that the medicines are making her worse. She says the antihistamines make her dizzy and the Flonase does not help her congestion and makes her worse. Patient was seen by ENT on 01/19/2025 who at that time recommended surgical repair patient had declined requesting to continue with medical management she was prescribed Bactrim inhaled steroids. * CT sinusis: There is severe mucosal thickening in the frontal sinuses bilaterally, the right frontal sinuses are diminutive. Moderate mucosal thickening in the ethmoidal air cells bilaterally in the maxillary sinuses with moderate mucosal thickening noted also in the sphenoid sinuses. The ostiomeatal complex on the left is obstructed. The ostiomeatal complex on the right is narrowed. The nasal septum is posteriorly deviated to the left with mild thickening of the turbinates with no significant narrowing of the nasal cavities. There is no osseous destruction or wall thickening identified. * May need ENT consult inpatient * continue Nebs and Mucinex * patient does times refused Flonase Claritin (3) Hypertension: Qualifiers: Hypertension type: primary hypertension Qualified Code(s): I10 - Essential (primary) hypertension Code(s): I10 - Essential (primary) hypertension Status: Chronic Assessment and Plan: * continue lisinopril * monitor BP per unit protocol (4) Morbid obesity with BMI of 50.0-59.9, adult: Code(s): E66.01 - Morbid (severe) obesity due to excess calories; Z68.43 - Body mass index [BMI] 50.0-59.9, adult Status: Acute Assessment and Plan: * encourage diet changes into increase activity Plan Code status: Full code per patient DVT prophylaxis: Lovenox Stress ulcer prophylaxis: NA PT/OT notes: Ambulatory Disposition: patient continues admission for acute on chronic respiratory failure with hypercapnia hypoxia likely secondary to chronic sinusitis and obes ity induced hypoventilation syndrome. Patient is being followed by Pulmonary may need to consult ENT continue with current treatment plan pending cultures. Time Spent With Patient Time with patient: 25 - 35 minutes Subjective Date/time seen: 04/03/25 09:07 Interval history: Patient is a 64-year-old female admitted for further evaluation of acute on chronic respiratory failure with hypoxia and hypercapnia with chronic sinusitis. patient with significant history recurrent episodes of pneumonia. 04/03/2025: Patient reporting oxygen was making her feel worse at this time she is on her room air last reported 91% oxygen saturation nurse did report she gets tachycardic with activity. Patient says she mildly feels better but congestion is still present with moderate postnasal drip. I had ordered Lovenox for DVT prophylaxis the patient reports she will refuse at this time and would like to relate instead. Patient denied any chest pain, fever, nausea vomiting. Patient did report a steroids were making her jittery currently no wheezing and they were discontinued pulmonology. Review of Systems Review of Systems: All systems reviewed & are unremarkable except as noted in HPI and below Exam Const: General: comfortable and no acute distress Nutritional Appearance: obese morbidly obese HENMT: Mouth: Yes dry mucous membranes Eyes: General: appearance normal, both eyes and all related structures Neck: Neck: supple Resp: Effort & Inspection: normal respiratory effort Auscultation: clear to auscultation bilaterally Other: productive cough Cardio: Rate: regular rate Rhythm: regular rhythm GI: GI Palp: Yes Soft to palpation Auscultation: normal bowel sounds Other: Obese/round Skin: General skin exam: normal color and no rashes or lesions noted Wounds: no wounds Neuro: General: gait normal Speech: normal speech Motor exam (neuro): 5/5 motor strength present throughout Sensory Exam: normal sensation Extrem: General: normal to inspection Psych: Mental Status: mental status grossly normal Affect: normal affect Objective Data Vital Signs Vital Signs: Vital Signs - 24 hr 04/02/25 09:30 04/02/25 12:00 04/02/25 14:00 Temperature 98.1 F Pulse Rate 110 H 118 H Respiratory Rate 20 Blood Pressure 114/76 Pulse Oximetry 91 92 Oxygen Delivery Nasal Cannula Oxygen Flow Rate 1 Fraction of Inspired Oxygen 04/02/25 15:08 04/02/25 15:15 04/02/25 16:00 Temperature Pulse Rate 86 90 115 H Respiratory Rate 20 20 Blood Pressure Pulse Oximetry Oxygen Delivery Oxygen Flow Rate Fraction of Inspired Oxygen 04/02/25 20:00 04/02/25 20:00 04/02/25 20:25 Temperature 97.9 F Pulse Rate 110 H 110 H 110 H Respiratory Rate 20 17 Blood Pressure 130/67 Pulse Oximetry 91 90 Oxygen Delivery Nasal Cannula Oxygen Flow Rate 3 Fraction of Inspired Oxygen 28 04/02/25 21:00 04/02/25 21:04 04/02/25 21:09 Temperature Pulse Rate 111 H 110 H Respiratory Rate 20 20 Blood Pressure Pulse Oximetry 91 Oxygen Delivery Nasal Cannula Oxygen Flow Rate 2 Fraction of Inspired Oxygen 04/03/25 00:00 04/03/25 02:24 04/03/25 02:33 Temperature Pulse Rate 105 H 111 H 111 H Respiratory Rate 20 20 Blood Pressure Pulse Oximetry Oxygen Delivery Oxygen Flow Rate Fraction of Inspired Oxygen 04/03/25 04:00 04/03/25 04:58 04/03/25 07:32 Temperature 98.1 F Pulse Rate 92 92 Respiratory Rate 18 Blood Pressure 127/77 Pulse Oximetry 94 95 Oxygen Delivery Nasal Cannula Oxygen Flow Rate 3 Fraction of Inspired Oxygen 04/03/25 07:32 04/03/25 07:41 Temperature Pulse Rate 90 93 Respiratory Rate 20 20 Blood Pressure Pulse Oximetry Oxygen Delivery Oxygen Flow Rate Fraction of Inspired Oxygen Intake/Output Intake/Output: Intake & Output 03/31/25 04/01/25 04/02/25 04/03/25 23:59 23:59 23:59 23:59 Intake Total 1428 400 Balance 1428 400 Meds/Results Medications: Active Medications Generic Name Dose Route Start Last Admin Trade Name Santy PRN Reason Stop Dose Admin Acetaminophen 650 mg 04/01/25 22:21 04/02/25 21:22 Acetaminophen 325 Mg Tablet PO 650 mg Q4H PRN Administration Mild Pain (1-3) or Fever Guaifenesin 1,200 mg 04/02/25 09:00 04/03/25 09:02 Guaifenesin 12 Hr 600 Mg Tabcr PO 1,200 mg Q12HR NIURKA Administration Ipratropium [place] 0.5 mg 04/02/25 14:00 04/03/25 07:32 Ipratropium Br 0.02% Inh Soln 0.5 Mg/2.5 Ml Vial INHALATION 0.5 mg Q6HRT NIURKA Administration Lisinopril 10 mg 04/02/25 21:00 04/02/25 21:22 Lisinopril 10 Mg Tablet PO 10 mg HS NIURKA Administration Methylprednisolone Sodium Succinate 60 mg 04/02/25 00:00 04/03/25 05:31 Methylprednisolone Sod Succ 125 Mg Vial IV PUSH 60 mg Q6HR NIURKA Administration Radiology Results: ITS Impressions Chest X-Ray 04/01/25 19:57 IMPRESSION: 1. No acute findings of lungs limited portable AP chest. Sinuses CT 04/02/25 14:12 IMPRESSION: Sinusitis detailed above Labs Labs: Laboratory Results - last 24 hr 04/02/25 04/02/25 04/03/25 05:37 14:20 05:28 WBC 14.7 H RBC 5.55 H Hgb 14.8 Hct 48.4 H MCV 87.2 MCH 26.7 MCHC 30.6 L RDW 14.1 Plt Count 278 MPV 9.6 Sodium 137 Potassium 4.7 Chloride 103 Carbon Dioxide 25 Anion Gap 9 BUN 22 H Creatinine 0.64 L Estim Creat Clear Calc Not Reportable Estimated GFR > 60 Glucose 154 H Calcium 9.4 Procalcitonin 0.1 Legionella Source Cancelled Legionella Culture Cancelled Legionella Cult Status Cancelled Quality VTE Prophylaxis VTE prophylaxis: pharmacologic ordered -Patient's previous records reviewed on admission -ER notes reviewed in detail on admission -discussed all findings and current treatment plan with patient/Family/POA -Consultations reviewed for recommendations -Patient's disposition for safe discharge discussed with mental health case manager -radiology imaging, EKG and test results I have personally reviewed and interpreted unless otherwise specified Dictation performed by [employer] direct speech recognition software, therefore fast foods worker variants and typographical errors may occur. Hospitalist MIPS Advance Care Plan I have confirmed that the patient's Advanced Care Plan is present, code status is documented, or surrogate decision maker is listed in patient medical record.: Yes Medication Reconciliation I have utilized all available resources to obtain, update and review the patients current medications (includes all prescriptions, OTC, herbals, cannabis, and nutritional supplements).: Yes The patient is not eligible for med reconciliation; the patient is in a emergent medical situation where delaying treatment would jeopardize the patients health.: No
--- NOTE | 2025-04-03 09:46 | PM.PNPUL ---
Progress Note: A&P Assessment and Plan (1) Chronic sinusitis: Code(s): J32.9 - Chronic sinusitis, unspecified Status: Acute Assessment and Plan: Regarding her chronic sinusitis she has declined Flonase, antihistamines, ipratropium nasal spray in the past. She has been followed by ENT and was last seen on 01/19/[address] scan of the sinuses showed moderate pansinusitis. She was prescribed Bactrim and recommended to have bilateral frontal sinus balloon dilation, bilateral complete ethmoidectomy, bilateral maxillary antrostomy, bilateral inferior turbinate submucous resection , and septoplasty. despite me reminding her to call ENT since 01/19/2025 she has not done this. P.r.n. she will take Sudafed at home. 03/28/2025: Today the patient tells me that her sinuses are 50% back to her normal. Her breathing is back to her normal and she has no rest shortness of breath and her dyspnea on exertion when she walks to the bathroom is improved. Her room air saturations are 95%. Her white blood cell count is 9.2, creatinine is 0.69. Procalcitonin is 0.0, BNP is 63. She tells me she is ready for discharge. Regarding her chronic sinusitis the patient has never had a reliable trial of antihistamine and entered nasal corticosteroids because she has been reluctant to this treatment. She now agrees to this treatment as an improved on Flonase, Claritin, guaifenesin and ceftriaxone and azithromycin. 04/02/2025: Patient is convinced that the medicines are making her worse. She says the antihistamines make her dizzy and the Flonase does not help her congestion and makes her worse. Patient was seen by ENT on 01/19/2025. plan: I will discontinue Claritin and Flonase. I will order a CT scan of the sinuses and follow the patient clinically. patient has declined again to call ENT for follow-up appointment. May consider ENT consult in the hospital. Load in the day the patient had a CT scan of the sinuses which showed evidence of sinusitis with no osseous destruction. No air-fluid levels. No comparison made to CT of the sinuses on 12/14/2024 04/03/2025: Patient states her sinus congestion is the same to slightly better. She says she the oxygen makes her breathe breathe worse at times and have weaned her to room air during the day. Plan: I will perform overnight oximetry on room air tonight to see if she needs oxygen at night. Will need to review the CT scan of the sinuses with Radiology on 04/04/2025. Discussed with Neena Bailey, will follow with you. (2) Daytime hypersomnia: Code(s): G47.10 - Hypersomnia, unspecified Status: Acute Assessment and Plan: Patient is morbidly obese with a BMI of 53.0, she snores, no sleeping partner but has never been told she stops breathing in her sleep, she takes 1 nap a day. ABG on 3 L 7.40/46/69. TSH 4.92 on 10/22/2023. patient has nocturnal hypoxia on room air which was corrected with 2 L nasal cannula. 12/15/24: Patient had an overnight oximetry on room air with recording duration of 7 hours and 22 minutes. Average saturation 89%. Low saturation 81%. Time with saturation less than or equal to 88% was 153 minutes. Oxygen desaturation index 6.2. 12/16/24: Patient had an overnight oximetry on 2 L with recording duration 6 hours and 29 minutes. Average saturation 94%. Low saturation 88%. Time with saturation less than or equal to 88% was 0 minutes. Oxygen desaturation index 1.5. 01/06/25: Plan: I will order split night sleep study, I have told the patient not to take a nap on the day of the study. I will prescribed Lunesta 2 mg to take with her to the sleep lab in case she has insomnia. 01/19/25: Sleep Lab called the patient to schedule and the patient stated she would call the Sleep lab back when she was ready to schedule her sleep study. 03/08/25: Patient says she has not called the Sleep Lab back to schedule her appointment because she is concerned that if she has sleep apnea a mask will irritate her sinuses. The sister who is in the room says that she will never do a sleep study. Plan: I again recommend the patient have a split night sleep study to assess for untreated obstructive sleep apnea. The patient says she will consider this. 03/28/2025: On discharge I paid told the patient to call the sleep lab to reschedule her sleep appointment. 04/02/2025: The patient has not scheduled her split night sleep study. On presentation patient had a blood gas of 7.36/55/68. Last admission her PaCO2 after she had improved was 49 and she did not qualify for nocturnal noninvasive ventilation for obesity hypoventilation syndrome. plan: I will continue 2 L nasal cannula at night. Once the patient is back to her baseline will check an ABG to assess if she has obesity hypoventilation syndrome. 04/03/25: patient With slight improvement. Will continue to monitor her clinically. Plan: When she is at her baseline will repeat ABG to assess for chronic hypercarbic respiratory failure. I will perform overnight oximetry on room air to assess need for oxygen at night as she complains that oxygen sometimes makes her breathe worse and makes her sinus congestion worse. (3) Reactive airway disease: Code(s): J45.909 - Unspecified asthma, uncomplicated Status: Acute Assessment and Plan: Patient has a history of reactive airways disease with intermittent wheezing. PFTs demonstrate prism but no fixed obstruction. She has not been able to tolerate multiple inhalers because of jitteriness and tachycardia and beta agonists have been held in the past. Workup for autoimmune disease, connective tissue disorder and immuno deficiency have been largely negative. other factors that continue image to her reactive airways disease include multiple dental caries and she has declined to set up a dental appointment despite multiple reminders by myself. Possible cat allergies and she has cats. Untreated obstructive sleep apnea and she has failed to schedule her sleep study despite multiple reminders for her to do this by myself. 02/07/2025:? Rheumatoid factor less than 12, anti CCP antibody 17, GALILEA screen borderline positive at 1:80, anti DNA DS antibody negative, RESIDENCY PROGRAM COORDINATOR antibody, Zayas antibody, Zayas-RESIDENCY PROGRAM COORDINATOR antibodies, anti scleroderma 70 antibodies, anti SSA, anti SSB, anti chromatin antibodies, anti ribosomal P antibodies, anti Rosie 1 antibodies, anti centromere B antibodies all negative.? C Anca antibody negative, atypical p-ANCA antibody negative, p-ANCA antibody negative. ?Aldolase 4.2, negative, total CPK 40, hypersensitivity pneumonitis panel negative.? Myositis panel negative. 02/05/2025:? Total IgG = 1270.? IgG subclass 1 = 695.? IgG subclass 2 = 382.? IgG subclass 3 = 46.? IgG subclass 4 = 75. All normal. Total IgG 1266.? Total IgA 434 (elevated), total IgM 66.? Total IgE 50.? IgA elevated and others are normal. 02/11/25:? Referral placed to Allergy and immunology, Dr. Kong, for recurrent sinusitis, pulmonary infections and only 2 of 23 strep pneumonia titers positive. We confirmed Dr. Maddox office has all the appropriate documentation and they are waiting on the patient to call them to make an appointment and she is still not done this despite multiple reminders. Plan on 03/28/2025 was to give her a trial of nebulized ipratropium and nebulized budesonide. She took 1 nebulized ipratropium treatment On 04/01 at home and said that she had shortness of breath and shaking. 04/02/2025: Patient has been getting DuoNebs and says that they do make her shake and she is tachycardic today. Since discharge On 03/28/2025 she still has not called Allergy and immunology to schedule appointment. Plan: She had wheezing on presentation and I will continue Solu-Medrol 60 q.6. I will discontinue beta agonist. I will discontinue azithromycin. I will place her on ipratropium nebulizer q.6 hours. I will continue guaifenesin 1200 mg p.o. b.i.d.. 04/03/2025: overall the patient states she is doing a little bit better. She complains that she gets hot feelings with the steroids and is requesting them to be discontinued. She says she has no wheezing. She has no rest shortness of breath. When she walks to the bathroom she has slight dyspnea on exertion. She denies phlegm or hemoptysis. Her sinus congestion is about the same to a little bit better. When I entered the room she was on 3 L nasal cannula saturations 95%. I I decreased her to room air and after 13 minutes her saturations were 93%. She is afebrile. White blood cell count 14.7, creatinine 0.64. Plan: Patient says she had no adverse reactions from ipratropium while she was receiving the ipratropium nebulizer, 5 minutes later and no rebound symptoms prior to her next scheduled treatment. No wheezing and I will discontinue systemic steroids and place her on budesonide nebulizer starting 20:00. Subjective Date/time seen: 04/03/25 09:46 Interval history: 04/02/2025: This is a new pulmonary consult for sinusitis and hypoxia. 64-year-old with a history of chronic sinusitis, reactive airways disease, pneumonia, daytime hypersomnia, morbid obesity with a BMI of 50.2. Patient is followed in the [facility] in last seen on 03/08/2025: On 03/08/2025, regarding her pneumonia, She has had 3 pneumonias on 10/29/2024, 12/16/2024 and 02/05/2025. She is admitted treated with IV antibiotics and improves. She goes home finishing a course of oral levofloxacin on 12/16/2024 and 02/05/2025 and does well until she stops taking her antibiotics. She then developed sinus congestion and will worsening postnasal drip followed by respiratory symptoms. Regarding her chronic dyspnea on exertion she had PFTs with prism, no significant bronchodilator response, hyperinflation and normal DLCO that was increased when adjusted for alveolar volume. She is a never smoker. she said she has had multiple reactions to previous inhalers and is resistant to taking medicines and oxygen. She did say that bronchodilators help her but she cannot tolerate short-acting or long-acting beta agonists and I gave her therapeutic trial of nebulized ipratropium and nebulized budesonide 500 twice a day. Regarding her chronic sinusitis she has declined Flonase, antihistamines, ipratropium nasal spray in the past. She has been followed by ENT and was last seen on 01/19/[address] scan of the sinuses showed moderate pansinusitis. She was prescribed Bactrim and recommended to have bilateral frontal sinus balloon dilation, bilateral complete ethmoidectomy, bilateral maxillary antrostomy, bilateral inferior turbinate submucous resection , and septoplasty. Despite me reminding her to call ENT since 01/19/2025 she has not done this. P.r.n. she will take Sudafed at home. Patient has very poor dentition with sore cracked and rotten teeth and has not made it appointment with a dentist despite multiple reminders by myself. She says the teeth cost sinus pain and congestion as well. Regarding her daytime hypersomnia split night sleep study was ordered on 01/03/2025 and the sleep blood called the patient but she declined to schedule.? Her sister in the room said she will never do a sleep study.? Patient said she would consider this and I recommended 2 L at night.? Crawford score was 1.?? Weight was 257.7 lb.? 02/07/2025:? For mosaic attenuation and chronic infiltrates:? Rheumatoid factor less than 12, anti CCP antibody 17, GALILEA screen borderline positive at 1:80, anti DNA DS antibody negative, RESIDENCY PROGRAM COORDINATOR antibody, Zayas antibody, Zayas-RESIDENCY PROGRAM COORDINATOR antibodies, anti scleroderma 70 antibodies, anti SSA, anti SSB, anti chromatin antibodies, anti ribosomal P antibodies, anti Rosie 1 antibodies, anti centromere B antibodies all negative.? C Anca antibody negative, atypical p-ANCA antibody negative, p-ANCA antibody negative. ?Aldolase 4.2, negative, total CPK 40, hypersensitivity pneumonitis panel negative.? Myositis panel negative. 02/05/2025:? Total IgG = 1270.? IgG subclass 1 = 695.? IgG subclass 2 = 382.? IgG subclass 3 = 46.? IgG subclass 4 = 75. All normal. Total IgG 1266.? Total IgA 434 (elevated), total IgM 66.? Total IgE 50.? IgA elevated and others are normal. 02/11/25:? Referral placed to Allergy and immunology, Dr. Kong, for recurrent sinusitis, pulmonary infections and only 2 of 23 strep pneumonia titers positive. We confirmed Dr. Maddox office has all the appropriate documentation and they are waiting on the patient to call them to make an appointment and she is still not done this despite multiple reminders. 03/25/2025 through 03/28/2025:? Admitted to [facility] with worsening sinus congestion, worsening postnasal drip unresponsive to Sudafed, minimal nebulization use at home. Patient was seen in the emergency department with a white blood cell count 70 moist 0, 2.5 L nasal cannula ABG 7.38/49/67. CT angiogram of the chest showed no PE and compared to 12/12/2024 the right upper lobe infiltrates and improved and the left upper lobe infiltrates were worse. Patient was admitted to the hospital and treated with ceftriaxone, azithromycin, DuoNebs and budesonide nebulizer. She was also in agreement to Claritin 10 a day, Flonase 2 sprays each nostril twice a day and guaifenesin 1200 p.o. b.i.d..? Patient had a home O2 assessment on 03/28/2025 and required no oxygen at rest or with activity. On 03/29 2025 patient did not brass pickler her azithromycin and stop taking any home nebulizers. She did continue Claritin 10 and Flonase 2 sprays each nostril and guaifenesin 1200 mg p.o. b.i.d. and 2 L at night. Patient was in her usual state of health on 03/29 and 03 30. On 03/30 she went shopping and used to card in the store and was exposed to cold air. She said she slept okay on 03/30. On 03/31/2025 she woke up and felt she was shaky and had worsening balance. She had no rest shortness of breath, some dyspnea on exertion, wheezing, slightly more postnasal drip and a little bit of phlegm production. Early she slept poorly. 04/01/2025: Patient states her shakiness, dyspnea on exertion small amount of wheezing, same postnasal drip and same phlegm production with present and she presented to the ER. In the emergency department her blood pressure is 158/130, heart rate 124, respirations 22, saturations on 5 L nasal cannula 95%. White blood cell count was 21.1 with eosinophils 1% equals 211 per micro L. creatinine 0.65. BNP 1-155, troponin negative x3, D-dimer 0.31, COVID influenza and RSV RT PCR assay negative. ABG on 4 L 7.36/55/68. Chest x-ray was clear. Patient was admitted to the hospital and treated for reactive airways disease with Solu-Medrol, DuoNebs and her azithromycin 250 q.day was continued. 04/02/2025: Overall the patient states she feels a little bit better. In her mind all of her problems were started by the antihistamines which she says makes her shaky and dizzy. She is also uncomfortable with any nasal inhalers and wishes the Claritin and Flonase to be discontinued. She denies fever, phlegm from the chest, hemoptysis. She does have persistent postnasal drip. When I enter the room she was on 2 L oxygen with saturation 95% I decreased her to room air her saturations were 92%. Her weight is 112.8 with a overweight on 03/25/2025 of 112.2 kg. Claritin was discontinued, Flonase was discontinued, albuterol was discontinued. Antibiotics were discontinued 04/03/2025: overall the patient states she is doing a little bit better. She complains that she gets hot feelings with the steroids and is requesting them to be discontinued. She says she has no wheezing. She has no rest shortness of breath. When she walks to the bathroom she has slight dyspnea on exertion. She denies phlegm or hemoptysis. Her sinus congestion is about the same to a little bit better. When I entered the room she was on 3 L nasal cannula saturations 95%. I I decreased her to room air and after 13 minutes her saturations were 93%. She is afebrile. White blood cell count 14.7, creatinine 0.64. DATA: 04/02/25: EXAMINATION: CT sinus wo con COMPARISON: None HISTORY: chronic sinusitis TECHNIQUE: Axial images were obtained without IV contrast. Sagittal, coronal reconstruction images were obtained from the axial views. CT scan performed using dose optimization techniques including the following automated exposure control; adjustment of mA and/or kV; use of iterative reconstruction technique. Automatic exposure control was used to reduce radiation dose. Permanent radiation dose record is archived to PACS. FINDINGS: Visualized brain parenchyma optic globes and soft tissues appear unremarkable There is severe mucosal thickening in the frontal sinuses bilaterally, the right frontal sinuses are diminutive. Moderate mucosal thickening in the ethmoidal air cells bilaterally in the maxillary sinuses with moderate mucosal thickening noted also in the sphenoid sinuses. The ostiomeatal complex on the left is obstructed. The ostiomeatal complex on the right is narrowed. The nasal septum is posteriorly deviated to the left with mild thickening of the turbinates with no significant narrowing of the nasal cavities. There is no osseous destruction or wall thickening identified. IMPRESSION: Sinusitis detailed above 03/28/2025: Home O2 assessment: Rest room air saturation 95%. Exercise room air saturation 93%. Patient ambulated 122 meters. Patient requires no oxygen at rest and no with activity. 03/25/25: CTA CHEST CLINICAL HISTORY: shortness of breath, tachy, r/o pe . COMPARISON: Chest x-ray today CTA chest 12/12/2024 TECHNIQUE: Helical CTA performed from thoracic inlet to upper abdomen IV contrast information not listed in PACS Coronal, sagittal reformats. Multiplanar MIPS CT images acquired with automatic exposure control for dose reduction DLP: 757 mGy-cm FINDINGS: Respiratory motion artifact could obscure small PE. Pulmonary arteries: No PE identified. Thoracic Aorta: No dissection or aneurysm. Heart/pericardium: Unremarkable. RV/LV ratio: Normal. Lungs/Pleura: Scattered foci bilateral airspace disease, worst right upper lobe. Tracheobronchial tree: Patent. Nodes: No enlarged nodes. Small mediastinal and hilar nodes Bones: No acute bony abnormality. Soft tissues: Unremarkable. Visualized upper abdomen: Cirrhosis, hepatomegaly, steatosis. Gallstones. IMPRESSION: 1. Multifocal bilateral pneumonitis and/or airspace disease, progressed from December. 2. No PE identified. 02/07/2025:? Rheumatoid factor less than 12, , anti CCP antibody 17, Anca screen borderline at positive 1:80, anti DNA DS antibody negative, RESIDENCY PROGRAM COORDINATOR antibody, Zayas antibody, Zayas-RESIDENCY PROGRAM COORDINATOR antibodies, anti scleroderma 70 antibodies, anti SSA, anti SSB, anti chromatin antibodies, anti ribosomal P antibodies, anti Rosie 1 antibodies, anti centromere B antibodies all negative.? C Anca antibody negative, atypical p-ANCA antibody negative, p-ANCA antibody negative.? Aldolase 4.2, negative, total CPK 40, hypersensitivity pneumonitis panel negative.? Myositis panel pending. 02/05/2025:? Total IgG = 1270.? IgG subclass 1 = 695.? IgG subclass 2 = 382.? IgG subclass 3 = 46.? IgG subclass 4 = 75. All normal. Total IgG 1266.? Total IgA 434 (elevated), total IgM 66.? Total IgE 50.? IgA elevated and others are normal. 01/21/25:? Strep pneumonia titers:? Strep pneumonia 2 = 2.8 (positive greater than 1.3).? Strep pneumonia 14= 2.8, (positive greater than 1.3).? Strep pneumonia 1, 3, 4, 5, 8, 9, 12, 17, 19, 20, 22, 23, 26, 34, 43, 51, 54, 56, 57, 68, and 70 all are low. On 12/14/2024:? Total IgG 1248, total IgA 425.? Total IgM 63. --------- 02/05/25: EXAMINATION: CT diagnostic chest wo con, 02/05/2025 12:50 CDT HISTORY: pneumonia COMPARISON: No comparisons available. TECHNIQUE: CT scan of the chest was performed without IV contrast. One or more of the following dose reduction techniques were used: automated exposure control, adjustment of the mA and/or kV according to patient size, use of iterative reconstruction technique. FINDINGS: No significant coronary calcification is present ([id number]) LUNGS: No tracheomalacia. No bronchiectasis. Minimal emphysematous changes. Minimal pulmonary fibrotic changes. There are bilateral groundglass attenuation infiltrates with mild associated bronchial wall thickening most marked involving the upper lobes. Elevation noted of the right hemidiaphragm. HEART AND PERICARDIUM: Within normal limits. AORTA: Normal caliber aorta. ADENOPATHY/MEDIASTINUM: None. LIMITED VIEWS OF THE ABDOMEN: Cholelithiasis. OSSEOUS STRUCTURES: No acute osseous abnormality.No suspicious lesions. OVERLYING SOFT TISSUES: Unremarkable. THYROID: The thyroid is unremarkable. IMPRESSION: Mild bilateral bronchopneumonia 12/16/24: Patient had an overnight oximetry on 2 L with recording duration 6 hours and 29 minutes. Average saturation 94%. Low saturation 88%. Time with saturation less than or equal to 88% was 0 minutes. Oxygen desaturation index 1.5. 12/15/24: Patient had an overnight oximetry on room air with recording duration of 7 hours and 22 minutes. Average saturation 89%. Low saturation 81%. Time with saturation less than or equal to 88% was 153 minutes. Oxygen desaturation index 6.2. 12/15/24: Echo Summary 1. Definity contrast administered improved wall motion interpretation. 2. Left ventricular chamber dimension is normal. 3. Left ventricular systolic function is normal, estimated at 65-70. 4. There is mild concentric increased left ventricular wall thickness. 5. The left ventricular diastolic function is grade I diastolic dysfunction. 6. E/e' 11 is mildly elevated. 7. Dilated inferior vena cava with >50% collapse upon inspiration consistent with elevated right atrial pressure, 10 mmHg. Left Ventricle E/e' 11 is mildly elevated. Left ventricular chamber dimension is normal. Left ventricular systolic function is normal, estimated at 65-70. There is mild concentric increased left ventricular wall thickness. The left ventricular diastolic function is grade I diastolic dysfunction. Definity contrast administered improved wall motion interpretation. Right Ventricle Right ventricular chamber dimension is not well visualized. Left Atria Left atrial chamber dimension is normal. Right Atria Right atrial chamber dimension is normal. DATE: 12/12/2024 18:37 EXAMINATION: CTA chest PE protocol INDICATION: hypoxia, tachy, recent hospitalization COMPARISON: None. FINDINGS: Lung parenchyma and airways: Considerable motion artifact. Calcified right lower lobe granuloma. Subsegmental areas of peribronchovascular consolidation and groundglass in the bilateral upper lobes. Pleura: Unremarkable. Thoracic inlet, axillae and chest wall: Unremarkable. Thoracic aorta: No significant dilation. No dissection. Minimal arch calcification. Mediastinum: Dilated central pulmonary arteries. Calcified nodes. Heart and pericardium: Normal. Coronary artery calcifications: Absent. Upper abdomen: Cholelithiasis, without inflammatory change. Small hiatal hernia. Mild bilateral renal cortical thinning and scarring. Bones: No acute osseous finding. Pulmonary arteries: Study quality: Significant motion artifact, beam hardening, and quantum mottle limits this study. Nondiagnostic imaging of the subsegmental pulmonary arteries. No central or definite segmental pulmonary emboli detected. IMPRESSION: Limited examination. No central embolus. No definite segmental embolus noting that evaluation is somewhat limited. Nondiagnostic imaging of the subsegmental pulmonary arteries. Upper lobe opacities may represent edema or infection. Review of Systems Constitutional: Constitutional: Reports no additional constitutional complaints Eyes: Eyes: Reports no additional eye complaints ENT: Reports system reviewed and no additional complaints, except as documented Cardiovascular: Cardiovascular: Reports no additional cardiovascular complaints Respiratory: Respiratory: Reports no additional respiratory complaints Gastrointestinal: Gastrointestinal: Reports no additional gastrointestinal complaints Musculoskeletal: Musculoskeletal: Reports no additional musculoskeletal complaints Neurologic: Reports system reviewed and no additional complaints, except as documented Psychiatric: Psychiatric: Reports no additional psychiatric complaints Endocrine: Endocrine: Reports no additional endocrine complaints Hematologic/Lymphatic: Hematologic/Lymphatic: Reports no additional hematologic/lymphatic complaints Allergic/Immunologic: Allergic/Immunologic: Reports no additional allergic/immunologic complaints Exam Const: General: cooperative and comfortable Orientation/consciousness: oriented to person, oriented to place and oriented to time Other: Morbidly obese HENMT: Head: normal to inspection Ears: hearing grossly normal bilaterally Other: multiple dental caries with no fluctuating abscess felt Eyes: General: appearance normal, both eyes and all related structures Neck: Neck: normal visual inspection Chest: Chest palpation & inspection: normal inspection of the chest Resp: Effort & Inspection: normal respiratory effort and able to speak in complete sentences Auscultation: no crackles, no rales, no rhonchi, no wheezes and lung sounds not diminished Other: no wheezes this morning Cardio: Jugular venous distension: no JVD GI: Inspection: normal to inspection Skin: General skin exam: normal color Neuro: General: oriented to person, oriented to place and oriented to time Extrem: General: normal to inspection Psych: Appearance: grossly normal Objective Data Vital Signs Vital Signs: Vital Signs - 24 hr 04/02/25 12:00 04/02/25 14:00 04/02/25 15:08 Temperature 36.7 C Pulse Rate 110 H 118 H 86 Respiratory Rate 20 20 Blood Pressure 114/76 Pulse Oximetry 92 Oxygen Delivery Oxygen Flow Rate Fraction of Inspired Oxygen 04/02/25 15:15 04/02/25 16:00 04/02/25 20:00 Temperature Pulse Rate 90 115 H 110 H Respiratory Rate 20 20 Blood Pressure Pulse Oximetry 91 Oxygen Delivery Nasal Cannula Oxygen Flow Rate 3 Fraction of Inspired Oxygen 28 04/02/25 20:00 04/02/25 20:25 04/02/25 21:00 Temperature 36.6 C Pulse Rate 110 H 110 H 111 H Respiratory Rate 17 20 Blood Pressure 130/67 Pulse Oximetry 90 Oxygen Delivery Oxygen Flow Rate Fraction of Inspired Oxygen 04/02/25 21:04 04/02/25 21:09 04/03/25 00:00 Temperature Pulse Rate 110 H 105 H Respiratory Rate 20 Blood Pressure Pulse Oximetry 91 Oxygen Delivery Nasal Cannula Oxygen Flow Rate 2 Fraction of Inspired Oxygen 04/03/25 02:24 04/03/25 02:33 04/03/25 04:00 Temperature Pulse Rate 111 H 111 H 92 Respiratory Rate 20 20 Blood Pressure Pulse Oximetry Oxygen Delivery Oxygen Flow Rate Fraction of Inspired Oxygen 04/03/25 04:58 04/03/25 07:32 04/03/25 07:32 Temperature 36.7 C Pulse Rate 92 90 Respiratory Rate 18 20 Blood Pressure 127/77 Pulse Oximetry 94 95 Oxygen Delivery Nasal Cannula Oxygen Flow Rate 3 Fraction of Inspired Oxygen 04/03/25 07:41 Temperature Pulse Rate 93 Respiratory Rate 20 Blood Pressure Pulse Oximetry Oxygen Delivery Oxygen Flow Rate Fraction of Inspired Oxygen Intake/Output Intake/Output: Intake & Output 03/31/25 04/01/25 04/02/25 04/03/25 23:59 23:59 23:59 23:59 Intake Total 1428 640 Balance 1428 640 Meds/Results Medications: Active Medications Generic Name Dose Route Start Last Admin Trade Name Freq PRN Reason Stop Dose Admin Acetaminophen 650 mg 04/01/25 22:21 04/02/25 21:22 Acetaminophen 325 Mg Tablet PO 650 mg Q4H PRN Administration Mild Pain (1-3) or Fever Budesonide 0.5 mg 04/03/25 20:00 Budesonide Respule Neb 0.5 Mg/2 Ml Amp INHALATION Q12HRT [facility] Enoxaparin Sodium 40 mg 04/03/25 09:45 Enoxaparin 40 Mg/0.4 Ml Syringe SUB-Q DAILY [facility] Guaifenesin 1,200 mg 04/02/25 09:00 04/03/25 09:02 Guaifenesin 12 Hr 600 Mg Tabcr PO 1,200 mg Q12HR [facility] Administration Ipratropium [place] 0.5 mg 04/02/25 14:00 04/03/25 07:32 Ipratropium Br 0.02% Inh Soln 0.5 Mg/2.5 Ml Vial INHALATION 0.5 mg Q6HRT [facility] Administration Lisinopril 10 mg 04/02/25 21:00 04/02/25 21:22 Lisinopril 10 Mg Tablet PO 10 mg HS NIURKA Administration Radiology Results: ITS Impressions Chest X-Ray 04/01/25 19:57 IMPRESSION: 1. No acute findings of lungs limited portable AP chest. Sinuses CT 04/02/25 14:12 IMPRESSION: Sinusitis detailed above Labs Labs: Laboratory Results - last 24 hr 04/02/25 04/03/25 14:20 05:28 WBC 14.7 H RBC 5.55 H Hgb 14.8 Hct 48.4 H MCV 87.2 MCH 26.7 MCHC 30.6 L RDW 14.1 Plt Count 278 MPV 9.6 Sodium 137 Potassium 4.7 Chloride 103 Carbon Dioxide 25 Anion Gap 9 BUN 22 H Creatinine 0.64 L Estim Creat Clear Calc Not Reportable Estimated GFR > 60 Glucose 154 H Calcium 9.4 Legionella Source Cancelled Legionella Culture Cancelled Legionella Cult Status Cancelled
[2025-04-03] MEDS: BUDESONIDE RESPULE NEB 0.5 MG/2 ML AMP INHALATION (20:24)
[2025-04-03] MEDS: ACETAMINOPHEN 325 MG TABLET 650 MG PO (20:33)
[2025-04-04] VITALS (18 sets, daily range): BP systolic 116–159; BP diastolic 77–99; PULSE 80–113; RESP 17–20; TEMP 35.9–36.5; O2SAT 93–97
[2025-04-04] MEDS: IPRATROPIUM BR 0.02% INH SOLN 0.5 MG/2.5 ML VIAL INHALATION ×5 (01:45→20:19)
--- NOTE | 2025-04-04 01:45 | PCRCNOTE ---
0200 tx omitted, pt having apnea link procedure. RCS to resume tx's at 0800
[2025-04-04 06:13] LABS: Hematocrit 50.3 % (37.0-47.0); Hemoglobin 14.7 g/dL (12.0-15.0); Mean Corpuscular HGB Conc 29.2 g/dl (32-36); Mean Corpuscular Hemoglobin 26.7 pg (26-34); Mean Corpuscular Volume 91.5 fl (80-100); Platelet Count Result 284 k/mm3 (150-375); Red Blood Count 5.50 M/mm3 (4.2-5.4); White Blood Count 13.3 K/mm3 (4.5-10.0)
[2025-04-04 06:28] LABS: Anion Gap 10 mmol/L (4-12); Blood Urea Nitrogen 25 mg/dL (7-17); Calcium 9.2 mg/dL (8.4-10.2); Carbon Dioxide 22 mmol/L (22-30); Chloride 106 mmol/L (98-107); Estimated Glomerular Filt Rate > 60; Glucose 113 mg/dL (65-110); Potassium 4.4 mmol/L (3.4-5.0); Sodium 138 mmol/L (137-145)
[2025-04-04] MEDS: BUDESONIDE RESPULE NEB 0.5 MG/2 ML AMP INHALATION ×2 (07:17→20:19)
[2025-04-04] MEDS: guaiFENesin 12 HR 600 MG TABCR 1200 MG PO ×2 (09:11→20:14)
--- NOTE | 2025-04-04 10:09 | PM.PNPUL ---
Progress Note: A&P Assessment and Plan (1) Chronic sinusitis: Code(s): J32.9 - Chronic sinusitis, unspecified Status: Acute Assessment and Plan: Regarding her chronic sinusitis she has declined Flonase, antihistamines, ipratropium nasal spray in the past. She has been followed by ENT and was last seen on 01/19/[address] scan of the sinuses showed moderate pansinusitis. She was prescribed Bactrim and recommended to have bilateral frontal sinus balloon dilation, bilateral complete ethmoidectomy, bilateral maxillary antrostomy, bilateral inferior turbinate submucous resection , and septoplasty. despite me reminding her to call ENT since 01/19/2025 she has not done this. P.r.n. she will take Sudafed at home. 03/28/2025: Today the patient tells me that her sinuses are 50% back to her normal. Her breathing is back to her normal and she has no rest shortness of breath and her dyspnea on exertion when she walks to the bathroom is improved. Her room air saturations are 95%. Her white blood cell count is 9.2, creatinine is 0.69. Procalcitonin is 0.0, BNP is 63. She tells me she is ready for discharge. Regarding her chronic sinusitis the patient has never had a reliable trial of antihistamine and entered nasal corticosteroids because she has been reluctant to this treatment. She now agrees to this treatment as an improved on Flonase, Claritin, guaifenesin and ceftriaxone and azithromycin. 04/02/2025: Patient is convinced that the medicines are making her worse. She says the antihistamines make her dizzy and the Flonase does not help her congestion and makes her worse. Patient was seen by ENT on 01/19/2025. plan: I will discontinue Claritin and Flonase. I will order a CT scan of the sinuses and follow the patient clinically. patient has declined again to call ENT for follow-up appointment. May consider ENT consult in the hospital. Load in the day the patient had a CT scan of the sinuses which showed evidence of sinusitis with no osseous destruction. No air-fluid levels. No comparison made to CT of the sinuses on 12/14/2024 04/03/2025: Patient states her sinus congestion is the same to slightly better. She says she the oxygen makes her breathe breathe worse at times and have weaned her to room air during the day. Plan: I will perform overnight oximetry on room air kelight to see if she needs oxygen at night. 04/04/25: Overall the patient tells me she has improved. She has no rest shortness of breath. She is walking to the bathroom and has normal dyspnea on exertion. She denies wheezing. Her cough is more pronounced than when she was admitted and she relates this to a postnasal drip. She has thick phlegm. She has right greater than left nasal congestion that is the same as yesterday. Patient is on room air with saturations 94%. She is afebrile. White blood cell count 13.3, creatinine 0.67. Plan: Will formally consult ENT. Patient says she is resistant to taking any intranasal medicines or antihistamines as she has had reactions to these in the past and states that any intranasal medicine makes her worse. Discussed with Neena Bailey, will follow with you. (2) Daytime hypersomnia: Code(s): G47.10 - Hypersomnia, unspecified Status: Acute Assessment and Plan: Patient is morbidly obese with a BMI of 53.0, she snores, no sleeping partner but has never been told she stops breathing in her sleep, she takes 1 nap a day. ABG on 3 L 7.40/46/69. TSH 4.92 on 10/22/2023. patient has nocturnal hypoxia on room air which was corrected with 2 L nasal cannula. 12/15/24: Patient had an overnight oximetry on room air with recording duration of 7 hours and 22 minutes. Average saturation 89%. Low saturation 81%. Time with saturation less than or equal to 88% was 153 minutes. Oxygen desaturation index 6.2. 12/16/24: Patient had an overnight oximetry on 2 L with recording duration 6 hours and 29 minutes. Average saturation 94%. Low saturation 88%. Time with saturation less than or equal to 88% was 0 minutes. Oxygen desaturation index 1.5. 01/06/25: Plan: I will order split night sleep study, I have told the patient not to take a nap on the day of the study. I will prescribed Lunesta 2 mg to take with her to the sleep lab in case she has insomnia. 01/19/25: Sleep Lab called the patient to schedule and the patient stated she would call the Sleep lab back when she was ready to schedule her sleep study. 03/08/25: Patient says she has not called the Sleep Lab back to schedule her appointment because she is concerned that if she has sleep apnea a mask will irritate her sinuses. The sister who is in the room says that she will never do a sleep study. Plan: I again recommend the patient have a split night sleep study to assess for untreated obstructive sleep apnea. The patient says she will consider this. 03/28/2025: On discharge I paid told the patient to call the sleep lab to reschedule her sleep appointment. 04/02/2025: The patient has not scheduled her split night sleep study. On presentation patient had a blood gas of 7.36/55/68. Last admission her PaCO2 after she had improved was 49 and she did not qualify for nocturnal noninvasive ventilation for obesity hypoventilation syndrome. plan: I will continue 2 L nasal cannula at night. Once the patient is back to her baseline will check an ABG to assess if she has obesity hypoventilation syndrome. 04/03/25: patient With slight improvement. Will continue to monitor her clinically. Plan: When she is at her baseline will repeat ABG to assess for chronic hypercarbic respiratory failure. I will perform overnight oximetry on room air to assess need for oxygen at night as she complains that oxygen sometimes makes her breathe worse and makes her sinus congestion worse. 04/04/25: Patient an overnight oximetry on room air with recording duration of 8 hours and 43 minutes. Average saturation 91%. Low saturation 77%. Time with saturation less than or equal to 88% was 18 minutes. Oxygen desaturation index 4.3. Plan: Patient states that oxygen either during the day or at night makes her feel worse and she is reluctant to wearing oxygen. I will perform overnight oximetry on 1 L nasal cannula to see if this can correct her. We talked about sleep relating breathing disorder and the treatment would be CPAP or BiPAP and at this time she does not know she would be able to tolerate that. (3) Reactive airway disease: Code(s): J45.909 - Unspecified asthma, uncomplicated Status: Acute Assessment and Plan: Patient has a history of reactive airways disease with intermittent wheezing. PFTs demonstrate prism but no fixed obstruction. She has not been able to tolerate multiple inhalers because of jitteriness and tachycardia and beta agonists have been held in the past. Workup for autoimmune disease, connective tissue disorder and immuno deficiency have been largely negative. other factors that continue image to her reactive airways disease include multiple dental caries and she has declined to set up a dental appointment despite multiple reminders by myself. Possible cat allergies and she has cats. Untreated obstructive sleep apnea and she has failed to schedule her sleep study despite multiple reminders for her to do this by myself. 02/07/2025:? Rheumatoid factor less than 12, anti CCP antibody 17, GALILEA screen borderline positive at 1:80, anti DNA DS antibody negative, TYPING ELEMENT MACHINE OPERATOR antibody, Zayas antibody, Zayas-TYPING ELEMENT MACHINE OPERATOR antibodies, anti scleroderma 70 antibodies, anti SSA, anti SSB, anti chromatin antibodies, anti ribosomal P antibodies, anti Rosie 1 antibodies, anti centromere B antibodies all negative.? C Anca antibody negative, atypical p-ANCA antibody negative, p-ANCA antibody negative. ?Aldolase 4.2, negative, total CPK 40, hypersensitivity pneumonitis panel negative.? Myositis panel negative. 02/05/2025:? Total IgG = 1270.? IgG subclass 1 = 695.? IgG subclass 2 = 382.? IgG subclass 3 = 46.? IgG subclass 4 = 75. All normal. Total IgG 1266.? Total IgA 434 (elevated), total IgM 66.? Total IgE 50.? IgA elevated and others are normal. 02/11/25:? Referral placed to Allergy and immunology, Dr. Kong, for recurrent sinusitis, pulmonary infections and only 2 of 23 strep pneumonia titers positive. We confirmed Dr. Maddox office has all the appropriate documentation and they are waiting on the patient to call them to make an appointment and she is still not done this despite multiple reminders. Plan on 03/28/2025 was to give her a trial of nebulized ipratropium and nebulized budesonide. She took 1 nebulized ipratropium treatment On 04/01 at home and said that she had shortness of breath and shaking. 04/02/2025: Patient has been getting DuoNebs and says that they do make her shake and she is tachycardic today. Since discharge On 03/28/2025 she still has not called Allergy and immunology to schedule appointment. Plan: She had wheezing on presentation and I will continue Solu-Medrol 60 q.6. I will discontinue beta agonist. I will discontinue azithromycin. I will place her on ipratropium nebulizer q.6 hours. I will continue guaifenesin 1200 mg p.o. b.i.d.. 04/03/2025: overall the patient states she is doing a little bit better. She complains that she gets hot feelings with the steroids and is requesting them to be discontinued. She says she has no wheezing. She has no rest shortness of breath. When she walks to the bathroom she has slight dyspnea on exertion. She denies phlegm or hemoptysis. Her sinus congestion is about the same to a little bit better. When I entered the room she was on 3 L nasal cannula saturations 95%. I I decreased her to room air and after 13 minutes her saturations were 93%. She is afebrile. White blood cell count 14.7, creatinine 0.64. Plan: Patient says she had no adverse reactions from ipratropium while she was receiving the ipratropium nebulizer, 5 minutes later and no rebound symptoms prior to her next scheduled treatment. No wheezing and I will discontinue systemic steroids and place her on budesonide nebulizer starting 20:00. 04/04/25: Overall the patient tells me she has improved. She has no rest shortness of breath. She is walking to the bathroom and has normal dyspnea on exertion. She denies wheezing. Her cough is more pronounced than when she was admitted and she relates this to a postnasal drip. She has thick phlegm. She has right greater than left nasal congestion that is the same as yesterday. Patient is on room air with saturations 94%. She is afebrile. White blood cell count 13.3, creatinine 0.67. Patient states that after she gets the nebulized albuterol and budesonide she has dizziness for 2-3 minutes afterwards. This is tolerable for her. Plan: I will change her nebulizers ipratropium to q.4 hours while awake, continue budesonide 500 q.12 hours, continue guaifenesin 1200 b.i.d.. Subjective Date/time seen: 04/04/25 10:09 Interval history: 04/02/2025: This is a new pulmonary consult for sinusitis and hypoxia. 64-year-old with a history of chronic sinusitis, reactive airways disease, pneumonia, daytime hypersomnia, morbid obesity with a BMI of 50.2. Patient is followed in the [facility] in last seen on 03/08/2025: On 03/08/2025, regarding her pneumonia, She has had 3 pneumonias on 10/29/2024, 12/16/2024 and 02/05/2025. She is admitted treated with IV antibiotics and improves. She goes home finishing a course of oral levofloxacin on 12/16/2024 and 02/05/2025 and does well until she stops taking her antibiotics. She then developed sinus congestion and will worsening postnasal drip followed by respiratory symptoms. Regarding her chronic dyspnea on exertion she had PFTs with prism, no significant bronchodilator response, hyperinflation and normal DLCO that was increased when adjusted for alveolar volume. She is a never smoker. she said she has had multiple reactions to previous inhalers and is resistant to taking medicines and oxygen. She did say that bronchodilators help her but she cannot tolerate short-acting or long-acting beta agonists and I gave her therapeutic trial of nebulized ipratropium and nebulized budesonide 500 twice a day. Regarding her chronic sinusitis she has declined Flonase, antihistamines, ipratropium nasal spray in the past. She has been followed by ENT and was last seen on 01/19/[address] scan of the sinuses showed moderate pansinusitis. She was prescribed Bactrim and recommended to have bilateral frontal sinus balloon dilation, bilateral complete ethmoidectomy, bilateral maxillary antrostomy, bilateral inferior turbinate submucous resection , and septoplasty. Despite me reminding her to call ENT since 01/19/2025 she has not done this. P.r.n. she will take Sudafed at home. Patient has very poor dentition with sore cracked and rotten teeth and has not made it appointment with a dentist despite multiple reminders by myself. She says the teeth cost sinus pain and congestion as well. Regarding her daytime hypersomnia split night sleep study was ordered on 01/03/2025 and the sleep blood called the patient but she declined to schedule.? Her sister in the room said she will never do a sleep study.? Patient said she would consider this and I recommended 2 L at night.? [place] score was 1.?? Weight was 257.7 lb.? 02/07/2025:? For mosaic attenuation and chronic infiltrates:? Rheumatoid factor less than 12, anti CCP antibody 17, GALILEA screen borderline positive at 1:80, anti DNA DS antibody negative, TYPING ELEMENT MACHINE OPERATOR antibody, Zayas antibody, Zayas-TYPING ELEMENT MACHINE OPERATOR antibodies, anti scleroderma 70 antibodies, anti SSA, anti SSB, anti chromatin antibodies, anti ribosomal P antibodies, anti Rosie 1 antibodies, anti centromere B antibodies all negative.? C Anca antibody negative, atypical p-ANCA antibody negative, p-ANCA antibody negative. ?Aldolase 4.2, negative, total CPK 40, hypersensitivity pneumonitis panel negative.? Myositis panel negative. 02/05/2025:? Total IgG = 1270.? IgG subclass 1 = 695.? IgG subclass 2 = 382.? IgG subclass 3 = 46.? IgG subclass 4 = 75. All normal. Total IgG 1266.? Total IgA 434 (elevated), total IgM 66.? Total IgE 50.? IgA elevated and others are normal. 02/11/25:? Referral placed to Allergy and immunology, Dr. Kong, for recurrent sinusitis, pulmonary infections and only 2 of 23 strep pneumonia titers positive. We confirmed Dr. Maddox office has all the appropriate documentation and they are waiting on the patient to call them to make an appointment and she is still not done this despite multiple reminders. 03/25/2025 through 03/28/2025:? Admitted to [facility] with worsening sinus congestion, worsening postnasal drip unresponsive to Sudafed, minimal nebulization use at home. Patient was seen in the emergency department with a white blood cell count 70 moist 0, 2.5 L nasal cannula ABG 7.38/49/67. CT angiogram of the chest showed no PE and compared to 12/12/2024 the right upper lobe infiltrates and improved and the left upper lobe infiltrates were worse. Patient was admitted to the hospital and treated with ceftriaxone, azithromycin, DuoNebs and budesonide nebulizer. She was also in agreement to Claritin 10 a day, Flonase 2 sprays each nostril twice a day and guaifenesin 1200 p.o. b.i.d..? Patient had a home O2 assessment on 03/28/2025 and required no oxygen at rest or with activity. On 03/29 2025 patient did not excelsior picker her azithromycin and stop taking any home nebulizers. She did continue Claritin 10 and Flonase 2 sprays each nostril and guaifenesin 1200 mg p.o. b.i.d. and 2 L at night. Patient was in her usual state of health on 03/29 and 03 30. On 03/30 she went shopping and used to card in the store and was exposed to cold air. She said she slept okay on 03/30. On 03/31/2025 she woke up and felt she was shaky and had worsening balance. She had no rest shortness of breath, some dyspnea on exertion, wheezing, slightly more postnasal drip and a little bit of phlegm production. Early she slept poorly. 04/01/2025: Patient states her shakiness, dyspnea on exertion small amount of wheezing, same postnasal drip and same phlegm production with present and she presented to the ER. In the emergency department her blood pressure is 158/130, heart rate 124, respirations 22, saturations on 5 L nasal cannula 95%. White blood cell count was 21.1 with eosinophils 1% equals 211 per micro L. creatinine 0.65. BNP 1-155, troponin negative x3, D-dimer 0.31, COVID influenza and RSV RT PCR assay negative. ABG on 4 L 7.36/55/68. Chest x-ray was clear. Patient was admitted to the hospital and treated for reactive airways disease with Solu-Medrol, DuoNebs and her azithromycin 250 q.day was continued. 04/02/2025: Overall the patient states she feels a little bit better. In her mind all of her problems were started by the antihistamines which she says makes her shaky and dizzy. She is also uncomfortable with any nasal inhalers and wishes the Claritin and Flonase to be discontinued. She denies fever, phlegm from the chest, hemoptysis. She does have persistent postnasal drip. When I enter the room she was on 2 L oxygen with saturation 95% I decreased her to room air her saturations were 92%. Her weight is 112.8 with a overweight on 03/25/2025 of 112.2 kg. Claritin was discontinued, Flonase was discontinued, albuterol was discontinued. Antibiotics were discontinued 04/03/2025: overall the patient states she is doing a little bit better. She complains that she gets hot feelings with the steroids and is requesting them to be discontinued. She says she has no wheezing. She has no rest shortness of breath. When she walks to the bathroom she has slight dyspnea on exertion. She denies phlegm or hemoptysis. Her sinus congestion is about the same to a little bit better. When I entered the room she was on 3 L nasal cannula saturations 95%. I I decreased her to room air and after 13 minutes her saturations were 93%. She is afebrile. White blood cell count 14.7, creatinine 0.64. 04/04/2025: Overall the patient tells me she has improved. She has no rest shortness of breath. She is walking to the bathroom and has normal dyspnea on exertion. She denies wheezing. Her cough is more pronounced than when she was admitted and she relates this to a postnasal drip. She has thick phlegm. She has right greater than left nasal congestion that is the same as yesterday. Patient is on room air with saturations 94%. She is afebrile. White blood cell count 13.3, creatinine 0.67. Patient an overnight oximetry on room air with recording duration of 8 hours and 43 minutes. Average saturation 91%. Low saturation 77%. Time with saturation less than or equal to 88% was 18 minutes. Oxygen desaturation index 4.3. DATA: 04/04/25: Patient an overnight oximetry on room air with recording duration of 8 hours and 43 minutes. Average saturation 91%. Low saturation 77%. Time with saturation less than or equal to 88% was 18 minutes. Oxygen desaturation index 4.3. 04/02/25: EXAMINATION: CT sinus wo con COMPARISON: None HISTORY: chronic sinusitis TECHNIQUE: Axial images were obtained without IV contrast. Sagittal, coronal reconstruction images were obtained from the axial views. CT scan performed using dose optimization techniques including the following automated exposure control; adjustment of mA and/or kV; use of iterative reconstruction technique. Automatic exposure control was used to reduce radiation dose. Permanent radiation dose record is archived to PACS. FINDINGS: Visualized brain parenchyma optic globes and soft tissues appear unremarkable There is severe mucosal thickening in the frontal sinuses bilaterally, the right frontal sinuses are diminutive. Moderate mucosal thickening in the ethmoidal air cells bilaterally in the maxillary sinuses with moderate mucosal thickening noted also in the sphenoid sinuses. The ostiomeatal complex on the left is obstructed. The ostiomeatal complex on the right is narrowed. The nasal septum is posteriorly deviated to the left with mild thickening of the turbinates with no significant narrowing of the nasal cavities. There is no osseous destruction or wall thickening identified. IMPRESSION: Sinusitis detailed above 03/28/2025: Home O2 assessment: Rest room air saturation 95%. Exercise room air saturation 93%. Patient ambulated 122 meters. Patient requires no oxygen at rest and no with activity. 03/25/25: CTA CHEST CLINICAL HISTORY: shortness of breath, tachy, r/o pe . COMPARISON: Chest x-ray today CTA chest 12/12/2024 TECHNIQUE: Helical CTA performed from thoracic inlet to upper abdomen IV contrast information not listed in PACS Coronal, sagittal reformats. Multiplanar MIPS CT images acquired with automatic exposure control for dose reduction DLP: 757 mGy-cm FINDINGS: Respiratory motion artifact could obscure small PE. Pulmonary arteries: No PE identified. Thoracic Aorta: No dissection or aneurysm. Heart/pericardium: Unremarkable. RV/LV ratio: Normal. Lungs/Pleura: Scattered foci bilateral airspace disease, worst right upper lobe. Tracheobronchial tree: Patent. Nodes: No enlarged nodes. Small mediastinal and hilar nodes Bones: No acute bony abnormality. Soft tissues: Unremarkable. Visualized upper abdomen: Cirrhosis, hepatomegaly, steatosis. Gallstones. IMPRESSION: 1. Multifocal bilateral pneumonitis and/or airspace disease, progressed from December. 2. No PE identified. 02/07/2025:? Rheumatoid factor less than 12, , anti CCP antibody 17, Anca screen borderline at positive 1:80, anti DNA DS antibody negative, TYPING ELEMENT MACHINE OPERATOR antibody, Zayas antibody, Zayas-TYPING ELEMENT MACHINE OPERATOR antibodies, anti scleroderma 70 antibodies, anti SSA, anti SSB, anti chromatin antibodies, anti ribosomal P antibodies, anti Rosie 1 antibodies, anti centromere B antibodies all negative.? C Anca antibody negative, atypical p-ANCA antibody negative, p-ANCA antibody negative.? Aldolase 4.2, negative, total CPK 40, hypersensitivity pneumonitis panel negative.? Myositis panel pending. 02/05/2025:? Total IgG = 1270.? IgG subclass 1 = 695.? IgG subclass 2 = 382.? IgG subclass 3 = 46.? IgG subclass 4 = 75. All normal. Total IgG 1266.? Total IgA 434 (elevated), total IgM 66.? Total IgE 50.? IgA elevated and others are normal. 01/21/25:? Strep pneumonia titers:? Strep pneumonia 2 = 2.8 (positive greater than 1.3).? Strep pneumonia 14= 2.8, (positive greater than 1.3).? Strep pneumonia 1, 3, 4, 5, 8, 9, 12, 17, 19, 20, 22, 23, 26, 34, 43, 51, 54, 56, 57, 68, and 70 all are low. On 12/14/2024:? Total IgG 1248, total IgA 425.? Total IgM 63. --------- 02/05/25: EXAMINATION: CT diagnostic chest wo con, 02/05/2025 12:50 CDT HISTORY: pneumonia COMPARISON: No comparisons available. TECHNIQUE: CT scan of the chest was performed without IV contrast. One or more of the following dose reduction techniques were used: automated exposure control, adjustment of the mA and/or kV according to patient size, use of iterative reconstruction technique. FINDINGS: No significant coronary calcification is present ([id number]) LUNGS: No tracheomalacia. No bronchiectasis. Minimal emphysematous changes. Minimal pulmonary fibrotic changes. There are bilateral groundglass attenuation infiltrates with mild associated bronchial wall thickening most marked involving the upper lobes. Elevation noted of the right hemidiaphragm. HEART AND PERICARDIUM: Within normal limits. AORTA: Normal caliber aorta. ADENOPATHY/MEDIASTINUM: None. LIMITED VIEWS OF THE ABDOMEN: Cholelithiasis. OSSEOUS STRUCTURES: No acute osseous abnormality.No suspicious lesions. OVERLYING SOFT TISSUES: Unremarkable. THYROID: The thyroid is unremarkable. IMPRESSION: Mild bilateral bronchopneumonia 12/16/24: Patient had an overnight oximetry on 2 L with recording duration 6 hours and 29 minutes. Average saturation 94%. Low saturation 88%. Time with saturation less than or equal to 88% was 0 minutes. Oxygen desaturation index 1.5. 12/15/24: Patient had an overnight oximetry on room air with recording duration of 7 hours and 22 minutes. Average saturation 89%. Low saturation 81%. Time with saturation less than or equal to 88% was 153 minutes. Oxygen desaturation index 6.2. 12/15/24: Echo Summary 1. Definity contrast administered improved wall motion interpretation. 2. Left ventricular chamber dimension is normal. 3. Left ventricular systolic function is normal, estimated at 65-70. 4. There is mild concentric increased left ventricular wall thickness. 5. The left ventricular diastolic function is grade I diastolic dysfunction. 6. E/e' 11 is mildly elevated. 7. Dilated inferior vena cava with >50% collapse upon inspiration consistent with elevated right atrial pressure, 10 mmHg. Left Ventricle E/e' 11 is mildly elevated. Left ventricular chamber dimension is normal. Left ventricular systolic function is normal, estimated at 65-70. There is mild concentric increased left ventricular wall thickness. The left ventricular diastolic function is grade I diastolic dysfunction. Definity contrast administered improved wall motion interpretation. Right Ventricle Right ventricular chamber dimension is not well visualized. Left Atria Left atrial chamber dimension is normal. Right Atria Right atrial chamber dimension is normal. DATE: 12/12/2024 18:37 EXAMINATION: CTA chest PE protocol INDICATION: hypoxia, tachy, recent hospitalization COMPARISON: None. FINDINGS: Lung parenchyma and airways: Considerable motion artifact. Calcified right lower lobe granuloma. Subsegmental areas of peribronchovascular consolidation and groundglass in the bilateral upper lobes. Pleura: Unremarkable. Thoracic inlet, axillae and chest wall: Unremarkable. Thoracic aorta: No significant dilation. No dissection. Minimal arch calcification. Mediastinum: Dilated central pulmonary arteries. Calcified nodes. Heart and pericardium: Normal. Coronary artery calcifications: Absent. Upper abdomen: Cholelithiasis, without inflammatory change. Small hiatal hernia. Mild bilateral renal cortical thinning and scarring. Bones: No acute osseous finding. Pulmonary arteries: Study quality: Significant motion artifact, beam hardening, and quantum mottle limits this study. Nondiagnostic imaging of the subsegmental pulmonary arteries. No central or definite segmental pulmonary emboli detected. IMPRESSION: Limited examination. No central embolus. No definite segmental embolus noting that evaluation is somewhat limited. Nondiagnostic imaging of the subsegmental pulmonary arteries. Upper lobe opacities may represent edema or infection. Review of Systems Constitutional: Constitutional: Reports no additional constitutional complaints Eyes: Eyes: Reports no additional eye complaints ENT: Reports system reviewed and no additional complaints, except as documented Cardiovascular: Cardiovascular: Reports no additional cardiovascular complaints Respiratory: Respiratory: Reports no additional respiratory complaints Gastrointestinal: Gastrointestinal: Reports no additional gastrointestinal complaints Musculoskeletal: Musculoskeletal: Reports no additional musculoskeletal complaints Neurologic: Reports system reviewed and no additional complaints, except as documented Psychiatric: Psychiatric: Reports no additional psychiatric complaints Endocrine: Endocrine: Reports no additional endocrine complaints Hematologic/Lymphatic: Hematologic/Lymphatic: Reports no additional hematologic/lymphatic complaints Allergic/Immunologic: Allergic/Immunologic: Reports no additional allergic/immunologic complaints Exam Const: General: cooperative and comfortable Orientation/consciousness: oriented to person, oriented to place and oriented to time Other: Morbidly obese HENMT: Head: normal to inspection Ears: hearing grossly normal bilaterally Other: multiple dental caries with no fluctuating abscess felt Eyes: General: appearance normal, both eyes and all related structures Neck: Neck: normal visual inspection Chest: Chest palpation & inspection: normal inspection of the chest Resp: Effort & Inspection: normal respiratory effort and able to speak in complete sentences Auscultation: no crackles, no rales, no rhonchi, no wheezes and lung sounds not diminished Other: no wheezes this morning Cardio: Jugular venous distension: no JVD GI: Inspection: normal to inspection Skin: General skin exam: normal color Neuro: General: oriented to person, oriented to place and oriented to time Extrem: General: normal to inspection Psych: Appearance: grossly normal Objective Data Vital Signs Vital Signs: Vital Signs - 24 hr 04/03/25 12:00 04/03/25 13:09 04/03/25 13:15 Temperature Pulse Rate 106 H 104 H 102 H Respiratory Rate 20 20 Blood Pressure Pulse Oximetry Oxygen Delivery Fraction of Inspired Oxygen 04/03/25 13:35 04/03/25 16:00 04/03/25 20:00 Temperature 36.9 C Pulse Rate 107 H 86 100 Respiratory Rate 18 18 Blood Pressure 126/66 Pulse Oximetry 91 93 Oxygen Delivery Room Air Fraction of Inspired Oxygen 28 04/03/25 20:00 04/03/25 20:24 04/03/25 20:34 Temperature Pulse Rate 100 102 H 102 H Respiratory Rate 20 20 Blood Pressure Pulse Oximetry Oxygen Delivery Fraction of Inspired Oxygen 04/03/25 20:46 04/03/25 21:02 04/04/25 00:00 Temperature 36.7 C Pulse Rate 100 83 Respiratory Rate 18 Blood Pressure 170/86 H Pulse Oximetry 94 93 Oxygen Delivery Room Air Fraction of Inspired Oxygen 04/04/25 04:00 04/04/25 05:47 04/04/25 07:15 Temperature 36.3 C L Pulse Rate 84 86 89 Respiratory Rate 17 20 Blood Pressure 159/99 H Pulse Oximetry 94 Oxygen Delivery Fraction of Inspired Oxygen 04/04/25 07:15 04/04/25 07:25 Temperature Pulse Rate 92 Respiratory Rate 20 Blood Pressure Pulse Oximetry 93 Oxygen Delivery Room Air Fraction of Inspired Oxygen 21 Intake/Output Intake/Output: Intake & Output 04/01/25 04/02/25 04/03/25 04/04/25 23:59 23:59 23:59 23:59 Intake Total 1428 1120 910 Balance 1428 1120 910 Meds/Results Medications: Active Medications Generic Name Dose Route Start Last Admin Trade Name Freq PRN Reason Stop Dose Admin Acetaminophen 650 mg 04/01/25 22:21 04/03/25 20:33 Acetaminophen 325 Mg Tablet PO 650 mg Q4H PRN Administration Mild Pain (1-3) or Fever Budesonide 0.5 mg 04/03/25 20:00 04/04/25 07:17 Budesonide Respule Neb 0.5 Mg/2 Ml Amp INHALATION 0.5 mg Q12HRT NIURKA Administration Enoxaparin Sodium 40 mg 04/03/25 09:45 04/04/25 09:12 Enoxaparin 40 Mg/0.4 Ml Syringe SUB-Q Not Given DAILY NIURKA Guaifenesin 1,200 mg 04/02/25 09:00 04/04/25 09:11 Guaifenesin 12 Hr 600 Mg Tabcr PO 1,200 mg Q12HR NIURKA Administration Ipratropium [place] 0.5 mg 04/02/25 14:00 04/04/25 07:17 Ipratropium Br 0.02% Inh Soln 0.5 Mg/2.5 Ml Vial INHALATION 0.5 mg Q6HRT NIURKA Administration Lisinopril 10 mg 04/02/25 21:00 04/03/25 20:33 Lisinopril 10 Mg Tablet PO 10 mg HS NIURKA Administration Radiology Results: ITS Impressions Chest X-Ray 04/01/25 19:57 IMPRESSION: 1. No acute findings of lungs limited portable AP chest. Sinuses CT 04/02/25 14:12 IMPRESSION: Sinusitis detailed above Labs Labs: Laboratory Results - last 24 hr 04/04/25 04/04/25 06:03 06:04 WBC 13.3 H RBC 5.50 H Hgb 14.7 Hct 50.3 H MCV 91.5 MCH 26.7 MCHC 29.2 L RDW 14.3 Plt Count 284 MPV 9.3 Sodium 138 Potassium 4.4 Chloride 106 Carbon Dioxide 22 Anion Gap 10 BUN 25 H Creatinine 0.67 L Estim Creat Clear Calc Not Reportable Estimated GFR > 60 Glucose 113 H Calcium 9.2
[2025-04-04 10:47] LABS: Alveolar/Arterial O2 Gradient 25.1 mmHg; Carboxyhemoglobin 0.6 % THb (0-2.0); Fractional Inspired Oxygen 21 %; HCO3 ABG 29.3 mEq/l (22.0-26.0); Methemoglobin ABG 0.1 %THb (0-1.5); Oxygen Content ABG 21.2 %vol (16.0-22.0); Oxygen Saturation ABG 94.7 % (95.0-100.0); PCO2 ABG 44.6 mmHg (35.0-45.0); PO2 ABG 71.2 mmHg (80.0-100.0); PO2 FiO2 Ratio Arterial Blood 3.39 %; Reduced Hemoglobin 5.4 %THb (0-5.0)
[2025-04-04 10:54] LABS: Modified Allen's Test Pass; Site Drawn RIGHT RADIAL
[2025-04-04 11:10] LABS: NT Pro B Type Natriuretic Pept 305 pg/mL (19.9-100)
--- NOTE | 2025-04-04 11:18 | P.PNIM_ITS ---
Progress Note: A&P Assessment and Plan (1) Acute on chronic respiratory failure with hypoxia and hypercapnia: Code(s): J96.21 - Acute and chronic respiratory failure with hypoxia; J96.22 - Acute and chronic respiratory failure with hypercapnia Status: Acute Assessment and Plan: Patient recently admitted and treated for bilateral pneumonia with frequent recurrences likely secondary to patient's chronic sinusitis and postnasal drip. I also discussed current findings and treatment plan with Dr. Whittington pulmonology. Medication is limited as patient has requested not to take antihistamine or Flonase to assist with her chronic Sinusitis and has not yet followed up with ENT. Patient likely with obesity induced hypoventilation syndrome and was suppose to have a sleep study outpatient but reported she has yet to do so. * Pulmonology following please refer to their consult notes for full timeline and treatments per patient diagnosis including attempted treatments and recommendations * Sputum order * patient on budesonide and ipratropium nebulizers * Legionella/pneumonphila Ur * WBC was 21.1 on admission likely due to steroids POA, CXR clear after discussion with Dr. Whittington do not believe to be Pneumonia will monitor closely d/C ABX at this time * continue with the Mucinex * patient felt worse with steroids methylprednisone was discontinued * Flonase and Claritin discontinued as requested from patient she does not want to take these she feels they are worsening her problems * Oxygen 2 L at night. No oxygen at rest or with activity per formal home O2 assessment which was performed on 03/28/2025. * Patient is also reluctant on needing supplemental oxygen concern she will become dependent on it. A sleep study has been recommended on multiple visit she currently is reluctant to follow-up. * Overnight Pulse oximetry plan for tonight with 1 L nasal cannula (2) Chronic sinusitis: Code(s): J32.9 - Chronic sinusitis, unspecified Status: Acute Assessment and Plan: Per Pulmonology: Regarding her chronic sinusitis she has declined Flonase, antihistamines, ipratropium nasal spray in the past. She has been followed by ENT and was last seen on 01/19/[address] scan of the sinuses showed moderate pansinusitis. She was prescribed Bactrim and recommended to have bilateral frontal sinus balloon dilation, bilateral complete ethmoidectomy, bilateral maxillary antrostomy, bilateral inferior turbinate submucous resection , and septoplasty. despite me reminding her to call ENT since 01/19/2025 she has not done this. P.r.n. she will take Sudafed at home. After speaking with patient she stated to me that the medicines are making her worse. She says the antihistamines make her dizzy and the Flonase does not help her congestion and makes her worse. Patient was seen by ENT on 01/19/2025 who at that time recommended surgical repair patient had declined requesting to continue with medical management she was prescribed Bactrim inhaled steroids. * CT sinusis: There is severe mucosal thickening in the frontal sinuses bilaterally, the right frontal sinuses are diminutive. Moderate mucosal thickening in the ethmoidal air cells bilaterally in the maxillary sinuses with moderate mucosal thickening noted also in the sphenoid sinuses. The ostiomeatal complex on the left is obstructed. The ostiomeatal complex on the right is narrowed. The nasal septum is posteriorly deviated to the left with mild thickening of the turbinates with no significant narrowing of the nasal cavities. There is no osseous destruction or wall thickening identified. * ENT consulted appreciate any further recommendations * continue Nebs and Mucinex * patient does times refused Flonase Claritin (3) Hypertension: Qualifiers: Hypertension type: primary hypertension Qualified Code(s): I10 - Essential (primary) hypertension Code(s): I10 - Essential (primary) hypertension Status: Chronic Assessment and Plan: * continue lisinopril * monitor BP per unit protocol (4) Morbid obesity with BMI of 50.0-59.9, adult: Code(s): E66.01 - Morbid (severe) obesity due to excess calories; Z68.43 - Body mass index [BMI] 50.0-59.9, adult Status: Acute Assessment and Plan: * encourage diet changes into increase activity Plan Code status: Full code per patient DVT prophylaxis: Lovenox Stress ulcer prophylaxis: NA PT/OT notes: Ambulatory Disposition: patient continues admission for acute on chronic respiratory failure with hypercapnia hypoxia likely secondary to chronic sinusitis and obesity induced hypoventilation syndrome. Patient is being followed by Pulmonary, consulted ENT continue with current treatment plan pending cultures. Time Spent With Patient Time with patient: 15 - 25 minutes Subjective Date/time seen: 04/04/25 11:18 Interval history: Patient is a 64-year-old female admitted for further evaluation of acute on chronic respiratory failure with hypoxia and hypercapnia with chronic sinusitis. patient with significant history recurrent episodes of pneumonia. 04/04/2025: Patient postnasal drip improving only complaint is fatigue has agreed to 1L O2 oximetry monitoring overnight. Review of Systems Review of Systems: All systems reviewed & are unremarkable except as noted in HPI and below Exam Const: General: comfortable, no acute distress and obese Nutritional Appearance: obese morbidly obese HENMT: Mouth: Yes dry mucous membranes Eyes: General: appearance normal, both eyes and all related structures Neck: Neck: supple Resp: Effort & Inspection: normal respiratory effort Auscultation: clear to auscultation bilaterally Other: productive cough Cardio: Rate: regular rate Rhythm: regular rhythm GI: Auscultation: normal bowel sounds Other: Obese/round Skin: General skin exam: normal color and no rashes or lesions noted Wounds: no wounds Neuro: General: gait normal Speech: normal speech Motor exam (neuro): 5/5 motor strength present throughout Sensory Exam: normal sensation Extrem: General: normal to inspection Psych: Mental Status: mental status grossly normal Affect: normal affect Objective Data Vital Signs Vital Signs: Vital Signs - 24 hr 04/03/25 12:00 04/03/25 13:09 04/03/25 13:15 Temperature Pulse Rate 106 H 104 H 102 H Respiratory Rate 20 20 Blood Pressure Pulse Oximetry Oxygen Delivery Fraction of Inspired Oxygen 04/03/25 13:35 04/03/25 16:00 04/03/25 20:00 Temperature 98.5 F Pulse Rate 107 H 86 100 Respiratory Rate 18 18 Blood Pressure 126/66 Pulse Oximetry 91 93 Oxygen Delivery Room Air Fraction of Inspired Oxygen 28 04/03/25 20:00 04/03/25 20:24 04/03/25 20:34 Temperature Pulse Rate 100 102 H 102 H Respiratory Rate 20 20 Blood Pressure Pulse Oximetry Oxygen Delivery Fraction of Inspired Oxygen 04/03/25 20:46 04/03/25 21:02 04/04/25 00:00 Temperature 98.0 F Pulse Rate 100 83 Respiratory Rate 18 Blood Pressure 170/86 H Pulse Oximetry 94 93 Oxygen Delivery Room Air Fraction of Inspired Oxygen 04/04/25 04:00 04/04/25 05:47 04/04/25 07:15 Temperature 97.3 F L Pulse Rate 84 86 89 Respiratory Rate 17 20 Blood Pressure 159/99 H Pulse Oximetry 94 Oxygen Delivery Fraction of Inspired Oxygen 04/04/25 07:15 04/04/25 07:25 04/04/25 09:10 Temperature Pulse Rate 92 Respiratory Rate 20 Blood Pressure Pulse Oximetry 93 Oxygen Delivery Room Air Room Air Fraction of Inspired Oxygen 21 Intake/Output Intake/Output: Intake & Output 04/01/25 04/02/25 04/03/25 04/04/25 23:59 23:59 23:59 23:59 Intake Total 1428 1120 910 Balance 1428 1120 910 Meds/Results Medications: Active Medications Generic Name Dose Route Start Last Admin Trade Name Freq PRN Reason Stop Dose Admin Acetaminophen 650 mg 04/01/25 22:21 04/03/25 20:33 Acetaminophen 325 Mg Tablet PO 650 mg Q4H PRN Administration Mild Pain (1-3) or Fever Budesonide 0.5 mg 04/03/25 20:00 04/04/25 07:17 Budesonide Respule Neb 0.5 Mg/2 Ml Amp INHALATION 0.5 mg Q12HRT NIURKA Administration Enoxaparin Sodium 40 mg 04/03/25 09:45 04/04/25 09:12 Enoxaparin 40 Mg/0.4 Ml Syringe SUB-Q Not Given DAILY [facility] Guaifenesin 1,200 mg 04/02/25 09:00 04/04/25 09:11 Guaifenesin 12 Hr 600 Mg Tabcr PO 1,200 mg Q12HR NIURKA Administration Ipratropium [place] 0.5 mg 04/04/25 12:00 Ipratropium Br 0.02% Inh Soln 0.5 Mg/2.5 Ml Vial INHALATION [id number] [facility] Lisinopril 10 mg 04/02/25 21:00 04/03/25 20:33 Lisinopril 10 Mg Tablet PO 10 mg HS NIURKA Administration Radiology Results: ITS Impressions Chest X-Ray 04/01/25 19:57 IMPRESSION: 1. No acute findings of lungs limited portable AP chest. Sinuses CT 04/02/25 14:12 IMPRESSION: Sinusitis detailed above Labs Labs: Laboratory Results - last 24 hr 04/04/25 04/04/25 04/04/25 06:03 06:04 10:27 WBC 13.3 H RBC 5.50 H Hgb 14.7 Hct 50.3 H MCV 91.5 MCH 26.7 MCHC 29.2 L RDW 14.3 Plt Count 284 MPV 9.3 Puncture Site Right radial ABG pH 7.435 ABG pCO2 44.6 ABG pO2 71.2 L ABG PO2/FiO2 Ratio 3.39 ABG HCO3 29.3 H ABG O2 Saturation 94.7 L ABG O2 Content 21.2 ABG Base Excess 4.3 A-a Gradient 25.1 Oxyhemoglobin 93.9 Carboxyhemoglobin 0.6 Methemoglobin 0.1 Reduced Hemoglobin 5.4 H Total Hemoglobin 16.1 O2 Delivery Device Room air O2 Liters/Min Not Reportable FiO2 21 Sodium 138 Potassium 4.4 Chloride 106 Carbon Dioxide 22 Anion Gap 10 BUN 25 H Creatinine 0.67 L Estim Creat Clear Calc Not Reportable Estimated GFR > 60 Glucose 113 H Calcium 9.2 NT-Pro-B Natriuret Pep 305 H Quality VTE Prophylaxis VTE prophylaxis: mechanical ordered -Patient's previous records reviewed on admission -ER notes reviewed in detail on admission -discussed all findings and current treatment plan with patient/Family/POA -Consultations reviewed for recommendations -Patient's disposition for safe discharge discussed with field nurse case manager -radiology imaging, EKG and test results I have personally reviewed and interpreted unless otherwise specified Dictation performed by [employer] direct speech recognition software, therefore geometry professor variants and typographical errors may occur. Hospitalist MIPS Advance Care Plan I have confirmed that the patient's Advanced Care Plan is present, code status is documented, or surrogate decision maker is listed in patient medical record.: Yes Medication Reconciliation I have utilized all available resources to obtain, update and review the patients current medications (includes all prescriptions, OTC, herbals, cannabis, and nutritional supplements).: Yes The patient is not eligible for med reconciliation; the patient is in a emergent medical situation where delaying treatment would jeopardize the patients health.: No
--- NOTE | 2025-04-04 18:53 | WPDCN ---
Assessment and Plan Assessment and plan (1) Chronic sinusitis: Qualifiers: Sinusitis location: unspecified location Qualified Code(s): J32.9 - Chronic sinusitis, unspecified Code(s): J32.9 - Chronic sinusitis, unspecified Status: Acute Plan Patient has chronic sinusitis, however her symptoms are relatively mild. She denies significant facial pain or pressure or headaches. She reports more right sided jaw pain that radiates to her right ear which she attributes to a right mandibular molar that needs to be extracted. This has been a longstanding problem; she has not seen a dentist in many years. She reports nasal congestion but she can breathe okay through her nose and she can smell okay. She reports some postnasal drainage with phlegm in the back of her throat but she denies any significant cough or frequent throat clearing. She has been treated previously with abx, steroids, nasal saline rinses, flonase, and oral antihistamines. She is convinced that not only do these interventions not help, they actually make her symptoms worse. She believes that even nasal saline worsens her symptoms. After reviewing her chart, it appears that she has never had an adequate course of nasal sprays or antihistamines. She is not interested in trying any new medications. Discussed with the patient that we could try a different nasal steroid besides flonase. We could try ipratropium or azelastine nasal sprays. We could try a different antihistamine besides claritin. We could try montelukast. And we could try a different abx such as doxycycline. The patient is not interested in any medical intervention for her nose or sinuses at this time. Additionally, discussed with the patient that often times, thick phlegm or mucous in the back of the throat can be the result of silent reflux rather than postnasal drip. Discussed trialing reflux medication but the patient isn't interested. Recent CT sinus reviewed. This shows mild to moderate mucosal thickening in the paranasal sinuses and no significant septal deviation. This scan is actually improved compared to her prior scan in December. Previously, sinus surgery was recommended by Dr. Warren. However, I do not believe that she is a good candidate for sinus surgery, neither inpatient or outpatient. First, she has not adequately trialed medical management. Second, given her non-compliance, I do not believe that she would do well postoperatively. Additionally, the patient is not interested in surgery. Ultimately, I do not believe that her sinusitis is contributing to her dyspnea or hypoxia. Certainly, sinusitis with significant postnasal drip can lead to bronchitis or pneumonia. However, the patient does not currently have pneumonia. At this time, there is nothing more for ENT to offer. She does not need to follow-up with ENT outpatient unless she decides that she is interested in an intervention. ENT is available both inpatient or outpatient if anything changes. Please call with any questions or concerns. HPI Data of Consult Date/Time: 04/04/25 18:53 Requesting Physician: Alexis Prince MD Primary Care Provider: Guido Aquino, Consult Narrative Narrative: Patient is currently admitted for shortness of breath and hypoxia. She has a Hx of chronic sinusitis and ENT is consulted for this today. She reports a long Hx of sinus problems. Symptoms include mild facial fullness and pressure with some congestion and drainage. She has been treated with multiple courses of abx and steroids. She has tried nasal saline rinses, flonase, ipratropium, and oral antihistamines. She reports that she could not tolerate any of these medications. She prefers holistic treatments. She has had multiple sinus CTs showing sinus disease, and she has been offered sinus surgery by Dr. Warren, but she is not interested in surgery. Review of Systems Review of Systems: All systems reviewed & are unremarkable except as noted in HPI and below PMFSH Past Medical History Medical History Hypoxemia requiring supplemental oxygen Polycythemia Nasal septal deviation Nasal mucosa dry Morbid obesity with BMI of 50.0-59.9, adult Hypertension Maxillary sinus polyp Surgical History Surgical History H/O: hysterectomy History of appendectomy Family History Family History Mother Diabetes mellitus Heart attack Hypertension Cerebrovascular accident Sibling Acute myocardial infarction Father Prostate carcinoma Grandparent Congestive heart failure Hypertension Social History Social History (Updated 04/03/25 @ 21:38 by Batsheva Simon APRN) Social History: She is 1 of 10 children. She and her younger brother live together. She is single and has never been and does not have any children. 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 She denies any history of alcohol, tobacco or illicit substance use. Code status: Full code Surrogate decision maker: Dora Peres (sister) Caffeine-green tea, occasional soda Smoking status: Never smoker Second hand tobacco smoke exposure: No Alcohol intake: never Substance use: never Substance use type: does not use Do You Feel Safe in your Home?: Yes Lack of Transportation: No Lack of Food: Never True Current Housing: I Do Not Have Housing Concerned About Future Housing: No Difficulty Paying Gas/Electric Bills: No Difficulty Paying for Meds: No Currently Unemployed: No Education: Associate Degree Difficulty w/ Childcare or Family Care: No Spiritual care concerns: No Meds Home Medications and Allergies Home Medications ?Medication ?Instructions ?Recorded ?Confirmed ?Type lisinopril 20 mg tablet 10 mg PO HS 10/26/24 04/02/25 History ipratropium bromide 0.02 % 0.5 mg (2.5 mL) inhalation Q6HRT 02/07/25 04/02/25 Rx solution for inhalation #75 mL nebulizer and compressor #1 ea 02/07/25 04/02/25 Rx azithromycin 250 mg tablet 250 mg PO DAILY #3 tabs 03/28/25 04/02/25 Rx fluticasone propionate 50 2 spray intranasal BID #16 grams 03/28/25 04/02/25 Rx mcg/actuation nasal spray,suspension guaifenesin 600 mg tablet, 1,200 mg (2 x 600 mg) PO Q12HR #30 03/28/25 04/02/25 Rx extended release 12 hr (Mucus tabs Relief ER) loratadine 10 mg tablet 10 mg PO QAM #15 tabs 03/28/25 04/02/25 Rx Allergies Allergy/AdvReac Type Severity Reaction Status Date / Time amoxicillin (From Augmentin) Allergy Intermediate Hives Verified 04/02/25 00:54 clavulanic acid (From Allergy Intermediate Hives Verified 04/02/25 00:54 Augmentin) Penicillins Allergy Intermediate Itching Verified 04/02/25 00:54 Vital Signs Vital Signs - 24 hr 04/03/25 20:00 04/03/25 20:00 04/03/25 20:24 Temperature Pulse Rate 100 100 102 H Respiratory Rate 18 20 Blood Pressure Pulse Oximetry 93 Oxygen Delivery Room Air Fraction of Inspired Oxygen 28 04/03/25 20:34 04/03/25 20:46 04/03/25 21:02 Temperature 36.7 C Pulse Rate 102 H 100 Respiratory Rate 20 18 Blood Pressure 170/86 H Pulse Oximetry 94 93 Oxygen Delivery Room Air Fraction of Inspired Oxygen 04/04/25 00:00 04/04/25 04:00 04/04/25 05:47 Temperature 36.3 C L Pulse Rate 83 84 86 Respiratory Rate 17 Blood Pressure 159/99 H Pulse Oximetry 94 Oxygen Delivery Fraction of Inspired Oxygen 04/04/25 07:15 04/04/25 07:15 04/04/25 07:25 Temperature Pulse Rate 89 92 Respiratory Rate 20 20 Blood Pressure Pulse Oximetry 93 Oxygen Delivery Room Air Fraction of Inspired Oxygen 21 04/04/25 08:00 04/04/25 09:00 04/04/25 09:10 Temperature Pulse Rate 113 H 80 Respiratory Rate Blood Pressure 116/85 Pulse Oximetry 96 Oxygen Delivery Room Air Fraction of Inspired Oxygen 04/04/25 12:00 04/04/25 13:05 04/04/25 13:15 Temperature Pulse Rate 87 86 92 Respiratory Rate 20 20 Blood Pressure Pulse Oximetry Oxygen Delivery Fraction of Inspired Oxygen 04/04/25 14:00 04/04/25 16:00 04/04/25 17:10 Temperature 36.5 C Pulse Rate 86 80 88 Respiratory Rate 20 20 Blood Pressure 136/77 Pulse Oximetry 95 Oxygen Delivery Fraction of Inspired Oxygen 04/04/25 17:18 Temperature Pulse Rate 90 Respiratory Rate 20 Blood Pressure Pulse Oximetry Oxygen Delivery Fraction of Inspired Oxygen Exam Narrative: General: Well developed, well nourished. No apparent distress. Voice strong. Head: Normocephalic, atraumatic. Eyes: Sclerae and conjunctivae clear. Pupils equal and round. Full extraocular motility. Ears: Normal pinnae. Nose: Nasal dorsum is straight. No drainage or crusting at nares. Normal mucosa. Oral Cavity / Oropharynx: Moist mucous membranes. No suspicious lesions. Posterior pharynx is clear without drainage. Poor dentition. Neck: Supple, nontender. No palpable lymphadenopathy, neck mass, or thyromegaly. Lungs: Respirations unlabored. Cardiovascular: Extremities warm and well perfused. Neurologic: Alert, oriented. Moves all extremities. Facial sensation intact to light touch. Face symmetric. Palate elevates symmetrically. Tongue midline. Results Labs 04/04/25 06:04 04/04/25 06:03 Labs: Short CBC 04/04/25 Range/Units 06:04 WBC 13.3 H (4.5-10.0) K/mm3 Hgb 14.7 (12.0-15.0) g/dL Hct 50.3 H (37.0-47.0) % Plt Count 284 (150-375) k/mm3 [facility] 04/04/25 06:03 Sodium 138 Potassium 4.4 Chloride 106 Carbon Dioxide 22 BUN 25 H Creatinine 0.67 L Glucose 113 H Calcium 9.2
[2025-04-05] VITALS: PULSE 85
[2025-04-05 04:00] VITALS: PULSE 83
[2025-04-05 04:55] VITALS: BP 149/94; PULSE 86; RESP 20; TEMP 36.3; O2SAT 97
[2025-04-05 08:00] VITALS: PULSE 92
--- NOTE | 2025-04-05 08:40 | P.PNPL_ITS ---
Progress Note: A&P Assessment and Plan (1) Chronic sinusitis: Qualifiers: Sinusitis location: unspecified location Qualified Code(s): J32.9 - Chronic sinusitis, unspecified Code(s): J32.9 - Chronic sinusitis, unspecified Status: Acute Assessment and Plan: Regarding her chronic sinusitis she has declined Flonase, antihistamines, ipratropium nasal spray in the past. She has been followed by ENT and was last seen on 01/19/[address] scan of the sinuses showed moderate pansinusitis. She was prescribed Bactrim and recommended to have bilateral frontal sinus balloon dilation, bilateral complete ethmoidectomy, bilateral maxillary antrostomy, bilateral inferior turbinate submucous resection , and septoplasty. despite me reminding her to call ENT since 01/19/2025 she has not done this. P.r.n. she will take Sudafed at home. 03/28/2025: Today the patient tells me that her sinuses are 50% back to her normal. Her breathing is back to her normal and she has no rest shortness of breath and her dyspnea on exertion when she walks to the bathroom is improved. Her room air saturations are 95%. Her white blood cell count is 9.2, creatinine is 0.69. Procalcitonin is 0.0, BNP is 63. She tells me she is ready for discharge. Regarding her chronic sinusitis the patient has never had a reliable trial of antihistamine and entered nasal corticosteroids because she has been reluctant to this treatment. She now agrees to this treatment as an improved on Flonase, Claritin, guaifenesin and ceftriaxone and azithromycin. 04/02/2025: Patient is convinced that the medicines are making her worse. She says the antihistamines make her dizzy and the Flonase does not help her congestion and makes her worse. Patient was seen by ENT on 01/19/2025. plan: I will discontinue Claritin and Flonase. I will order a CT scan of the sinuses and follow the patient clinically. patient has declined again to call ENT for follow-up appointment. May consider ENT consult in the hospital. Load in the day the patient had a CT scan of the sinuses which showed evidence of sinusitis with no osseous destruction. No air-fluid levels. No comparison made to CT of the sinuses on 12/14/2024 04/03/2025: Patient states her sinus congestion is the same to slightly better. She says she the oxygen makes her breathe breathe worse at times and have weaned her to room air during the day. Plan: I will perform overnight oximetry on room air tonight to see if she needs oxygen at night. 04/04/25: Overall the patient tells me she has improved. She has no rest shortness of breath. She is walking to the bathroom and has normal dyspnea on exertion. She denies wheezing. Her cough is more pronounced than when she was admitted and she relates this to a postnasal drip. She has thick phlegm. She has right greater than left nasal congestion that is the same as yesterday. Patient is on room air with saturations 94%. She is afebrile. White blood cell count 13.3, creatinine 0.67. Plan: Will formally consult ENT. Patient says she is resistant to taking any intranasal medicines or antihistamines as she has had reactions to these in the past and states that any intranasal medicine makes her worse. 04/05/25: Appreciate very thorough and detailed consult by ENT. Review of her CT scan of the sinuses compared to 12/14/2024 shows mild improvement in her sinusitis. Patient declined treatment with antihistamines, nasal steroids, nasal antihistamines, nasal saline, montelukast, or antibiotics. There is no current indication for surgery and the patient says she would not have surgery in the future. Since the patient declines treatment for her condition there is no need for further ENT follow-up at this time. When asked the patient about this she says she will try fish oil supplementation. Discussed with Neena Bailey, will follow with you. (2) Daytime hypersomnia: Code(s): G47.10 - Hypersomnia, unspecified Status: Acute Assessment and Plan: Patient is morbidly obese with a BMI of 53.0, she snores, no sleeping partner but has never been told she stops breathing in her sleep, she takes 1 nap a day. ABG on 3 L 7.40/46/69. TSH 4.92 on 10/22/2023. patient has nocturnal hypoxia on room air which was corrected with 2 L nasal cannula. 12/15/24: Patient had an overnight oximetry on room air with recording duration of 7 hours and 22 minutes. Average saturation 89%. Low saturation 81%. Time with saturation less than or equal to 88% was 153 minutes. Oxygen desaturation index 6.2. 12/16/24: Patient had an overnight oximetry on 2 L with recording duration 6 hours and 29 minutes. Average saturation 94%. Low saturation 88%. Time with saturation less than or equal to 88% was 0 minutes. Oxygen desaturation index 1.5. 01/06/25: Plan: I will order split night sleep study, I have told the patient not to take a nap on the day of the study. I will prescribed Lunesta 2 mg to take with her to the sleep lab in case she has insomnia. 01/19/25: Sleep Lab called the patient to schedule and the patient stated she would call the Sleep lab back when she was ready to schedule her sleep study. 03/08/25: Patient says she has not called the Sleep Lab back to schedule her appointment because she is concerned that if she has sleep apnea a mask will irritate her sinuses. The sister who is in the room says that she will never do a sleep study. Plan: I again recommend the patient have a split night sleep study to assess for untreated obstructive sleep apnea. The patient says she will consider this. 03/28/2025: On discharge I paid told the patient to call the sleep lab to reschedule her sleep appointment. 04/02/2025: The patient has not scheduled her split night sleep study. On presentation patient had a blood gas of 7.36/55/68. Last admission her PaCO2 after she had improved was 49 and she did not qualify for nocturnal noninvasive ventilation for obesity hypoventilation syndrome. plan: I will continue 2 L nasal cannula at night. Once the patient is back to her baseline will check an ABG to assess if she has obesity hypoventilation syndrome. 04/03/25: patient With slight improvement. Will continue to monitor her clinically. Plan: When she is at her baseline will repeat ABG to assess for chronic hypercarbic respiratory failure. I will perform overnight oximetry on room air to assess need for oxygen at night as she complains that oxygen sometimes makes her breathe worse and makes her sinus congestion worse. 04/04/25: Patient an overnight oximetry on room air with recording duration of 8 hours and 43 minutes. Average saturation 91%. Low saturation 77%. Time with saturation less than or equal to 88% was 18 minutes. Oxygen desaturation index 4.3. Plan: Patient states that oxygen either during the day or at night makes her feel worse and she is reluctant to wearing oxygen. I will perform overnight oximetry on 1 L nasal cannula to see if this can correct her. We talked about sleep relating breathing disorder and the treatment would be CPAP or BiPAP and at this time she does not know she would be able to tolerate that. Later in the day the patient had an Room air ABG with a pH of 7.44/45/71. 04/05/2025: Patient had an overnight oximetry on 1 L nasal cannula and says that she tolerated the 1 L nasal cannula and that it did not significantly change her nasal congestion. duration of 6 hours and 11 minutes. Average saturation 95%. Low saturation 91%. Time with saturation less than or equal to 88% was 0 minutes. Oxygen desaturation index 1.5. Plan: Recommend 1 L nasal cannula at night. I told the patient that if this 1 L nasal cannula at night is making her worse at home that she should discontinue this. She has previously declined to perform her split night sleep study. (3) Reactive airway disease: Code(s): J45.909 - Unspecified asthma, uncomplicated Status: Acute Assessment and Plan: Patient has a history of reactive airways disease with intermittent wheezing. PFTs demonstrate PRISm but no fixed obstruction. She has not been able to tolerate multiple inhalers because of jitteriness and tachycardia and beta agonists have been held in the past. Workup for autoimmune disease, connective tissue disorder and immuno deficiency have been largely negative. Other factors that continue image to her reactive airways disease include multiple dental caries and she has declined to set up a dental appointment despite multiple reminders by myself. Possible cat allergies and she has cats. Untreated obstructive sleep apnea and she has failed to schedule her sleep study despite multiple reminders for her to do this by myself. 02/07/2025:? Rheumatoid factor less than 12, anti CCP antibody 17, GALILEA screen borderline positive at 1:80, anti DNA DS antibody negative, FILTER PRESS TENDER HEAD antibody, Zayas antibody, Zayas-FILTER PRESS TENDER HEAD antibodies, anti scleroderma 70 antibodies, anti SSA, anti SSB, anti chromatin antibodies, anti ribosomal P antibodies, anti Rosie 1 antibodies, anti centromere B antibodies all negative.? C Anca antibody negative, atypical p-ANCA antibody negative, p-ANCA antibody negative. ?Aldolase 4.2, negative, total CPK 40, hypersensitivity pneumonitis panel negative.? Myositis panel negative. 02/05/2025:? Total IgG = 1270.? IgG subclass 1 = 695.? IgG subclass 2 = 382.? IgG subclass 3 = 46.? IgG subclass 4 = 75. All normal. Total IgG 1266.? Total IgA 434 (elevated), total IgM 66.? Total IgE 50.? IgA elevated and others are normal. 02/11/25:? Referral placed to Allergy and immunology, Dr. Kong, for recurrent sinusitis, pulmonary infections and only 2 of 23 strep pneumonia titers positive. We confirmed Dr. Kong's office has all the appropriate documentation and they are waiting on the patient to call them to make an appointment and she is still not done this despite multiple reminders. Plan on 03/28/2025 was to give her a trial of nebulized ipratropium and nebulized budesonide. She took 1 nebulized ipratropium treatment On 04/01 at home and said that she had shortness of breath and shaking. 04/02/2025: Patient has been getting DuoNebs and says that they do make her shake and she is tachycardic today. Since discharge On 03/28/2025 she still has not called Allergy and immunology to schedule appointment. Plan: She had wheezing on presentation and I will continue Solu-Medrol 60 q.6. I will discontinue beta agonist. I will discontinue azithromycin. I will place her on ipratropium nebulizer q.6 hours. I will continue guaifenesin 1200 mg p.o. b.i.d.. 04/03/2025: overall the patient states she is doing a little bit better. She complains that she gets hot feelings with the steroids and is requesting them to be discontinued. She says she has no wheezing. She has no rest shortness of breath. When she walks to the bathroom she has slight dyspnea on exertion. She denies phlegm or hemoptysis. Her sinus congestion is about the same to a little bit better. When I entered the room she was on 3 L nasal cannula saturations 95%. I I decreased her to room air and after 13 minutes her saturations were 93%. She is afebrile. White blood cell count 14.7, creatinine 0.64. Plan: Patient says she had no adverse reactions from ipratropium while she was receiving the ipratropium nebulizer, 5 minutes later and no rebound symptoms prior to her next scheduled treatment. No wheezing and I will discontinue systemic steroids and place her on budesonide nebulizer starting 20:00. 04/04/25: Overall the patient tells me she has improved. She has no rest shortness of breath. She is walking to the bathroom and has normal dyspnea on exertion. She denies wheezing. Her cough is more pronounced than when she was admitted and she relates this to a postnasal drip. She has thick phlegm. She has right greater than left nasal congestion that is the same as yesterday. Patient is on room air with saturations 94%. She is afebrile. White blood cell count 13.3, creatinine 0.67. Patient states that after she gets the nebulized albuterol and budesonide she has dizziness for 2-3 minutes afterwards. This is tolerable for her. Plan: I will change her nebulizers ipratropium to q.4 hours while awake, continue budesonide 500 q.12 hours, continue guaifenesin 1200 b.i.d.. 04/05/25: Overall the patient tells me she is breathing normal at rest. She has no dyspnea on exertion with walking to the bathroom but has not been walking in the hallway. Her phlegm is improved but persists. She describes it now is thick spit. the patient tells me she is having no significant side effects or reactions to the ipratropium or budesonide nebulizer. She states the gua ifenesin causes her to have continued congestion, phlegm production and cough. She has no wheezing. She has minimal cough. Her nasal congestion is slightly improved from yesterday. Room air saturations 97%. She is afebrile. Her weight today is 105.6 kg. I would like to try a therapeutic trial of ipratropium and budesonide for her reactive airways disease with PRISm spirometry. Plan: From a pulmonary perspective patient is ready to be discharged on these pulmonary medications Ipratropium nebulizer 0.5 mg q.i.d.. Budesonide 500 mcg nebulized q.12 hours. Guaifenesin 1200 mg p.o. b.i.d. p.r.n. congestion No oxygen at rest or with activity. 1 L nasal cannula at night. follow-up in the Pulmonary Clinic in 2-4 weeks, I gave her our business card and informed our skiver welt end. Discussed with Dr. Prince, will sign off, call with questions. Subjective Date/time seen: 04/05/25 08:40 Interval history: 04/02/2025: This is a new pulmonary consult for sinusitis and hypoxia. 64-year-old with a history of chronic sinusitis, reactive airways disease, pneumonia, daytime hypersomnia, morbid obesity with a BMI of 50.2. Patient is followed in the Pulmonary Clinic in last seen on 03/08/2025: On 03/08/2025, regarding her pneumonia, She has had 3 pneumonias on 10/29/2024, 12/16/2024 and 02/05/2025. She is admitted treated with IV antibiotics and improves. She goes home finishing a course of oral levofloxacin on 12/16/2024 and 02/05/2025 and does well until she stops taking her antibiotics. She then developed sinus congestion and will worsening postnasal drip followed by respiratory symptoms. Regarding her chronic dyspnea on exertion she had PFTs with prism, no significant bronchodilator response, hyperinflation and normal DLCO that was increased when adjusted for alveolar volume. She is a never smoker. she said she has had multiple reactions to previous inhalers and is resistant to taking medicines and oxygen. She did say that bronchodilators help her but she cannot tolerate short-acting or long-acting beta agonists and I gave her therapeutic trial of nebulized ipratropium and nebulized budesonide 500 twice a day. Regarding her chronic sinusitis she has declined Flonase, antihistamines, ipratropium nasal spray in the past. She has been followed by ENT and was last seen on 01/19/[address] scan of the sinuses showed moderate pansinusitis. She was prescribed Bactrim and recommended to have bilateral frontal sinus balloon dilation, bilateral complete ethmoidectomy, bilateral maxillary antrostomy, bilateral inferior turbinate submucous resection , and septoplasty. Despite me reminding her to call ENT since 01/19/2025 she has not done this. P.r.n. she will take Sudafed at home. Patient has very poor dentition with sore cracked and rotten teeth and has not made it appointment with a dentist despite multiple reminders by myself. She says the teeth cost sinus pain and congestion as well. Regarding her daytime hypersomnia split night sleep study was ordered on 01/03/2025 and the sleep blood called the patient but she declined to schedule.? Her sister in the room said she will never do a sleep study.? Patient said she would consider this and I recommended 2 L at night.? Lyle score was 1.?? Weight was 257.7 lb.? 02/07/2025:? For mosaic attenuation and chronic infiltrates:? Rheumatoid factor less than 12, anti CCP antibody 17, GALILEA screen borderline positive at 1:80, anti DNA DS antibody negative, FILTER PRESS TENDER HEAD antibody, Zayas antibody, Zayas-FILTER PRESS TENDER HEAD antibodies, anti scleroderma 70 antibodies, anti SSA, anti SSB, anti chromatin antibodies, anti ribosomal P antibodies, anti Rosie 1 antibodies, anti centromere B antibodies all negative.? C Anca antibody negative, atypical p-ANCA antibody negative, p- ANCA antibody negative. ?Aldolase 4.2, negative, total CPK 40, hypersensitivity pneumonitis panel negative.? Myositis panel negative. 02/05/2025:? Total IgG = 1270.? IgG subclass 1 = 695.? IgG subclass 2 = 382.? IgG subclass 3 = 46.? IgG subclass 4 = 75. All normal. Total IgG 1266.? Total IgA 434 (elevated), total IgM 66.? Total IgE 50.? IgA elevated and others are normal. 02/11/25:? Referral placed to Allergy and immunology, Dr. Kong, for recurrent sinusitis, pulmonary infections and only 2 of 23 strep pneumonia titers positive. We confirmed Dr. Maddox office has all the appropriate documentation and they are waiting on the patient to call them to make an appointment and she is still not done this despite multiple reminders. 03/25/2025 through 03/28/2025:? Admitted to [facility] with worsening sinus congestion, worsening postnasal drip unresponsive to Sudafed, minimal nebulization use at home. Patient was seen in the emergency department with a white blood cell count 70 moist 0, 2.5 L nasal cannula ABG 7.38/49/67. CT angiogram of the chest showed no PE and compared to 12/12/2024 the right upper lobe infiltrates and improved and the left upper lobe infiltrates were worse. Patient was admitted to the hospital and treated with ceftriaxone, azithromycin, DuoNebs and budesonide nebulizer. She was also in agreement to Claritin 10 a day, Flonase 2 sprays each nostril twice a day and guaifenesin 1200 p.o. b.i.d..? Patient had a home O2 assessment on 03/28/2025 and required no oxygen at rest or with activity. On 03/29 2025 patient did not pick up operator her azithromycin and stop taking any home nebulizers. She did continue Claritin 10 and Flonase 2 sprays each nostril and guaifenesin 1200 mg p.o. b.i.d. and 2 L at night. Patient was in her usual state of health on 03/29 and 03 30. On 03/30 she went shopping and used to card in the store and was exposed to cold air. She said she slept okay on 03/30. On 03/31/2025 she woke up and felt she was shaky and had worsening balance. She had no rest shortness of breath, some dyspnea on exertion, wheezing, slightly more postnasal drip and a little bit of phlegm production. Early she slept poorly. 04/01/2025: Patient states her shakiness, dyspnea on exertion small amount of wheezing, same postnasal drip and same phlegm production with present and she presented to the ER. In the emergency department her blood pressure is 158/130, heart rate 124, respirations 22, saturations on 5 L nasal cannula 95%. White blood cell count was 21.1 with eosinophils 1% equals 211 per micro L. creatinine 0.65. BNP 1-155, troponin negative x3, D-dimer 0.31, COVID influenza and RSV RT PCR assay negative. ABG on 4 L 7.36/55/68. Chest x-ray was clear. Patient was admitted to the hospital and treated for reactive airways disease with Solu-Medrol, DuoNebs and her azithromycin 250 q.day was continued. 04/02/2025: Overall the patient states she feels a little bit better. In her mind all of her problems were started by the antihistamines which she says makes her shaky and dizzy. She is also uncomfortable with any nasal inhalers and wishes the Claritin and Flonase to be discontinued. She denies fever, phlegm from the chest, hemoptysis. She does have persistent postnasal drip. When I enter the room she was on 2 L oxygen with saturation 95% I decreased her to room air her saturations were 92%. Her weight is 112.8 with a overweight on 03/25/2025 of 112.2 kg. Claritin was discontinued, Flonase was discontinued, albuterol was discontinued. Antibiotics were discontinued 04/03/2025: overall the patient states she is doing a little bit better. She complains that she gets hot feelings with the steroids and is requesting them to be discontinued. She says she has no wheezing. She has no rest shortness of breath. When she walks to the bathroom she has slight dyspnea on exertion. She denies phlegm or hemoptysis. Her sinus congestion is about the same to a little bit better. When I entered the room she was on 3 L nasal cannula saturations 95%. I I decreased her to room air and after 13 minutes her saturations were 93%. She is afebrile. White blood cell count 14.7, creatinine 0.64. 04/04/2025: Overall the patient tells me she has improved. She has no rest shortness of breath. She is walking to the bathroom and has normal dyspnea on exertion. She denies wheezing. Her cough is more pronounced than when she was admitted and she relates this to a postnasal drip. She has thick phlegm. She has right greater than left nasal congestion that is the same as yesterday. Patient is on room air with saturations 94%. She is afebrile. White blood cell count 13.3, creatinine 0.67. Patient an overnight oximetry on room air with recording duration of 8 hours and 43 minutes. Average saturation 91%. Low saturation 77%. Time with saturation less than or equal to 88% was 18 minutes. Oxygen desaturation index 4.3. Later in the day the patient had an Room air ABG with a pH of 7.44/45/71. 04/05/2025: Overall the patient tells me she is breathing normal at rest. She has no dyspnea on exertion with walking to the bathroom but has not been walking in the hallway. Her phlegm is improved but persists. She describes it now is thick spit. the patient tells me she is having no significant side effects or reactions to the ipratropium or budesonide nebulizer. She states the guaifenesin causes her to have continued congestion, phlegm production and cough. She has no wheezing. She has minimal cough. Her nasal congestion is slightly improved from yesterday. Room air saturations 97%. She is afebrile. Her weight today is 105.6 kg. Patient had an overnight oximetry on 1 L nasal cannula With regarding duration of 6 hours and 11 minutes. Average saturation 95%. Low saturation 91%. Time with saturation less than or equal to 88% was 0 minutes. Oxygen desaturation index 1.5. DATA: 04/05/25: Patient had an overnight oximetry on 1 L nasal cannula With regarding duration of 6 hours and 11 minutes. Average saturation 95%. Low saturation 91%. Time with saturation less than or equal to 88% was 0 minutes. Oxygen desaturation index 1.5. 04/04/25: ABG on room air with pH of 7.44/45/71. 04/04/25: Patient an overnight oximetry on room air with recording duration of 8 hours and 43 minutes. Average saturation 91%. Low saturation 77%. Time with saturation less than or equal to 88% was 18 minutes. Oxygen desaturation index 4.3. 04/02/25: EXAMINATION: CT sinus wo con COMPARISON: None HISTORY: chronic sinusitis TECHNIQUE: Axial images were obtained without IV contrast. Sagittal, coronal reconstruction images were obtained from the axial views. CT scan performed using dose optimization techniques including the following automated exposure control; adjustment of mA and/or kV; use of iterative reconstruction technique. Automatic exposure control was used to reduce radiation dose. Permanent radiation dose record is archived to PACS. FINDINGS: Visualized brain parenchyma optic globes and soft tissues appear unremarkable There is severe mucosal thickening in the frontal sinuses bilaterally, the right frontal sinuses are diminutive. Moderate mucosal thickening in the ethmoidal air cells bilaterally in the maxillary sinuses with moderate mucosal thickening noted also in the sphenoid sinuses. The ostiomeatal complex on the left is obstructed. The ostiomeatal complex on the right is narrowed. The nasal septum is posteriorly deviated to the left with mild thickening of the turbinates with no significant narrowing of the nasal cavities. There is no osseous destruction or wall thickening identified. IMPRESSION: Sinusitis detailed above 03/28/2025: Home O2 assessment: Rest room air saturation 95%. Exercise room air saturation 93%. Patient ambulated 122 meters. Patient requires no oxygen at rest and no with activity. 03/25/25: CTA CHEST CLINICAL HISTORY: shortness of breath, tachy, r/o pe . COMPARISON: Chest x-ray today CTA chest 12/12/2024 TECHNIQUE: Helical CTA performed from thoracic inlet to upper abdomen IV contrast information not listed in PACS Coronal, sagittal reformats. Multiplanar MIPS CT images acquired with automatic exposure control for dose reduction DLP: 757 mGy-cm FINDINGS: Respiratory motion artifact could obscure small PE. Pulmonary arteries: No PE identified. Thoracic Aorta: No dissection or aneurysm. Heart/pericardium: Unremarkable. RV/LV ratio: Normal. Lungs/Pleura: Scattered foci bilateral airspace disease, worst right upper lobe. Tracheobronchial tree: Patent. Nodes: No enlarged nodes. Small mediastinal and hilar nodes Bones: No acute bony abnormality. Soft tissues: Unremarkable. Visualized upper abdomen: Cirrhosis, hepatomegaly, steatosis. Gallstones. IMPRESSION: 1. Multifocal bilateral pneumonitis and/or airspace disease, progressed from December. 2. No PE identified. 02/07/2025:? Rheumatoid factor less than 12, , anti CCP antibody 17, Anca screen borderline at positive 1:80, anti DNA DS antibody negative, FILTER PRESS TENDER HEAD antibody, Zayas antibody, Zayas-FILTER PRESS TENDER HEAD antibodies, anti scleroderma 70 antibodies, anti SSA, anti SSB, anti chromatin antibodies, anti ribosomal P antibodies, anti Rosie 1 antibodies, anti centromere B antibodies all negative.? C Anca antibody negative, atypical p-ANCA antibody negative, p-ANCA antibody negative.? Aldolase 4.2, negative, total CPK 40, hypersensitivity pneumonitis panel negative.? Myositis panel pending. 02/05/2025:? Total IgG = 1270.? IgG subclass 1 = 695.? IgG subclass 2 = 382.? IgG subclass 3 = 46.? IgG subclass 4 = 75. All normal. Total IgG 1266.? Total IgA 434 (elevated), total IgM 66.? Total IgE 50.? IgA elevated and others are normal. 01/21/25:? Strep pneumonia titers:? Strep pneumonia 2 = 2.8 (positive greater than 1.3).? Strep pneumonia 14= 2.8, (positive greater than 1.3).? Strep pneumonia 1, 3, 4, 5, 8, 9, 12, 17, 19, 20, 22, 23, 26, 34, 43, 51, 54, 56, 57, 68, and 70 all are low. On 12/14/2024:? Total IgG 1248, total IgA 425.? Total IgM 63. --------- 02/05/25: EXAMINATION: CT diagnostic chest wo con, 02/05/2025 12:50 CDT HISTORY: pneumonia COMPARISON: No comparisons available. TECHNIQUE: CT scan of the chest was performed without IV contrast. One or more of the following dose reduction techniques were used: automated exposure control, adjustment of the mA and/or kV according to patient size, use of iterative reconstruction technique. FINDINGS: No significant coronary calcification is present ([id number]) LUNGS: No tracheomalacia. No bronchiectasis. Minimal emphysematous changes. Minimal pulmonary fibrotic changes. There are bilateral groundglass attenuation infiltrates with mild associated bronchial wall thickening most marked involving the upper lobes. Elevation noted of the right hemidiaphragm. HEART AND PERICARDIUM: Within normal limits. AORTA: Normal caliber aorta. ADENOPATHY/MEDIASTINUM: None. LIMITED VIEWS OF THE ABDOMEN: Cholelithiasis. OSSEOUS STRUCTURES: No acute osseous abnormality.No suspicious lesions. OVERLYING SOFT TISSUES: Unremarkable. THYROID: The thyroid is unremarkable. IMPRESSION: Mild bilateral bronchopneumonia 12/16/24: Patient had an overnight oximetry on 2 L with recording duration 6 hours and 29 minutes. Average saturation 94%. Low saturation 88%. Time with saturation less than or equal to 88% was 0 minutes. Oxygen desaturation index 1.5. 12/15/24: Patient had an overnight oximetry on room air with recording duration of 7 hours and 22 minutes. Average saturation 89%. Low saturation 81%. Time with saturation less than or equal to 88% was 153 minutes. Oxygen desaturation index 6.2. 12/15/24: Echo Summary 1. Definity contrast administered improved wall motion interpretation. 2. Left ventricular chamber dimension is normal. 3. Left ventricular systolic function is normal, estimated at 65-70. 4. There is mild concentric increased left ventricular wall thickness. 5. The left ventricular diastolic function is grade I diastolic dysfunction. 6. E/e' 11 is mildly elevated. 7. Dilated inferior vena cava with >50% collapse upon inspiration consistent with elevated right atrial pressure, 10 mmHg. Left Ventricle E/e' 11 is mildly elevated. Left ventricular chamber dimension is normal. Left ventricular systolic function is normal, estimated at 65-70. There is mild concentric increased left ventricular wall thickness. The left ventricular diastolic function is grade I diastolic dysfunction. Definity contrast administered improved wall motion interpretation. Right Ventricle Right ventricular chamber dimension is not well visualized. Left Atria Left atrial chamber dimension is normal. Right Atria Right atrial chamber dimension is normal. DATE: 12/12/2024 18:37 EXAMINATION: CTA chest PE protocol INDICATION: hypoxia, tachy, recent hospitalization COMPARISON: None. FINDINGS: Lung parenchyma and airways: Considerable motion artifact. Calcified right lower lobe granuloma. Subsegmental areas of peribronchovascular consolidation and groundglass in the bilateral upper lobes. Pleura: Unremarkable. Thoracic inlet, axillae and chest wall: Unremarkable. Thoracic aorta: No significant dilation. No dissection. Minimal arch calcification. Mediastinum: Dilated central pulmonary arteries. Calcified nodes. Heart and pericardium: Normal. Coronary artery calcifications: Absent. Upper abdomen: Cholelithiasis, without inflammatory change. Small hiatal hernia. Mild bilateral renal cortical thinning and scarring. Bones: No acute osseous finding. Pulmonary arteries: Study quality: Significant motion artifact, beam hardening, and quantum mottle limits this study. Nondiagnostic imaging of the subsegmental pulmonary arteries. No central or definite segmental pulmonary emboli detected. IMPRESSION: Limited examination. No central embolus. No definite segmental embolus noting that evaluation is somewhat limited. Nondiagnostic imaging of the subsegmental pulmonary arteries. Upper lobe opacities may represent edema or infection. Review of Systems Constitutional: Constitutional: Reports no additional constitutional complaints Eyes: Eyes: Reports no additional eye complaints ENT: Reports system reviewed and no additional complaints, except as documented Cardiovascular: Cardiovascular: Reports no additional cardiovascular complaints Respiratory: Respiratory: Reports no additional respiratory complaints Gastrointestinal: Gastrointestinal: Reports no additional gastrointestinal complaints Musculoskeletal: Musculoskeletal: Reports no additional musculoskeletal complaints Neurologic: Reports system reviewed and no additional complaints, except as documented Psychiatric: Psychiatric: Reports no additional psychiatric complaints Endocrine: Endocrine: Reports no additional endocrine complaints Hematologic/Lymphatic: Hematologic/Lymphatic: Reports no additional hematologic/lymphatic complaints Allergic/Immunologic: Allergic/Immunologic: Reports no additional allergic/immunologic complaints Exam Const: General: cooperative and comfortable Orientation/consciousness: oriented to person, oriented to place and oriented to time Other: Morbidly obese HENMT: Head: normal to inspection Ears: hearing grossly normal bilaterally Other: multiple dental caries with no fluctuating abscess felt Eyes: General: appearance normal, both eyes and all related structures Neck: Neck: normal visual inspection Chest: Chest palpation & inspection: normal inspection of the chest Resp: Effort & Inspection: normal respiratory effort and able to speak in complete sentences Auscultation: no crackles, no rales, no rhonchi, no wheezes and lung sounds not diminished Other: no wheezes this morning Cardio: Jugular venous distension: no JVD GI: Inspection: normal to inspection Skin: General skin exam: normal color Neuro: General: oriented to person, oriented to place and oriented to time Extrem: General: normal to inspection Psych: Appearance: grossly normal Objective Data Vital Signs Vital Signs: Vital Signs - 24 hr 04/04/25 09:00 04/04/25 09:10 04/04/25 12:00 Temperature Pulse Rate 80 87 Respiratory Rate Blood Pressure 116/85 Pulse Oximetry 96 Oxygen Delivery Room Air Oxygen Flow Rate Fraction of Inspired Oxygen 04/04/25 13:05 04/04/25 13:15 04/04/25 14:00 Temperature 36.5 C Pulse Rate 86 92 86 Respiratory Rate 20 20 20 Blood Pressure 136/77 Pulse Oximetry 95 Oxygen Delivery Oxygen Flow Rate Fraction of Inspired Oxygen 04/04/25 16:00 04/04/25 17:10 04/04/25 17:18 Temperature Pulse Rate 80 88 90 Respiratory Rate 20 20 Blood Pressure Pulse Oximetry Oxygen Delivery Oxygen Flow Rate Fraction of Inspired Oxygen 04/04/25 20:00 04/04/25 20:00 04/04/25 20:19 Temperature Pulse Rate 83 86 Respiratory Rate 20 Blood Pressure Pulse Oximetry 95 Oxygen Delivery Room Air Room Air Oxygen Flow Rate Fraction of Inspired Oxygen 21 04/04/25 20:19 04/04/25 20:40 04/04/25 23:10 Temperature 35.9 C L Pulse Rate 86 83 Respiratory Rate 20 20 Blood Pressure 155/87 H Pulse Oximetry 96 97 Oxygen Delivery Nasal Cannula Oxygen Flow Rate 1 Fraction of Inspired Oxygen 04/05/25 00:00 04/05/25 04:00 04/05/25 04:50 Temperature Pulse Rate 85 83 Respiratory Rate Blood Pressure Pulse Oximetry Oxygen Delivery Room Air Oxygen Flow Rate Fraction of Inspired Oxygen 04/05/25 04:55 Temperature 36.3 C L Pulse Rate 86 Respiratory Rate 20 Blood Pressure 149/94 H Pulse Oximetry 97 Oxygen Delivery Oxygen Flow Rate Fraction of Inspired Oxygen Intake/Output Intake/Output: Intake & Output 04/02/25 04/03/25 04/04/25 04/05/25 23:59 23:59 23:59 23:59 Intake Total 1428 1120 3270 537 Balance 1428 1120 3270 537 Meds/Results Medications: Active Medications Generic Name Dose Route Start Last Admin Trade Name Freq PRN Reason Stop Dose Admin Acetaminophen 650 mg 04/01/25 22:21 04/03/25 20:33 Acetaminophen 325 Mg Tablet PO 650 mg Q4H PRN Administration Mild Pain (1-3) or Fever Budesonide 0.5 mg 04/03/25 20:00 04/04/25 20:19 Budesonide Respule Neb 0.5 Mg/2 Ml Amp INHALATION 0.5 mg Q12HRT NIURKA Administration Guaifenesin 1,200 mg 04/02/25 09:00 04/04/25 20:14 Guaifenesin 12 Hr 600 Mg Tabcr PO 1,200 mg Q12HR NIURKA Administration Ipratropium [place] 0.5 mg 04/04/25 12:00 04/04/25 20:19 Ipratropium Br 0.02% Inh Soln 0.5 Mg/2.5 Ml Vial INHALATION 0.5 mg [id number] NIURKA Administration Lisinopril 10 mg 04/02/25 21:00 04/04/25 20:14 Lisinopril 10 Mg Tablet PO 10 mg HS NIURKA Administration Radiology Results: ITS Impressions Chest X-Ray 04/01/25 19:57 IMPRESSION: 1. No acute findings of lungs limited portable AP chest. Sinuses CT 04/02/25 14:12 IMPRESSION: Sinusitis detailed above Labs Labs: Laboratory Results - last 24 hr 04/04/25 04/04/25 06:03 10:27 Puncture Site Right radial ABG pH 7.435 ABG pCO2 44.6 ABG pO2 71.2 L ABG PO2/FiO2 Ratio 3.39 ABG HCO3 29.3 H ABG O2 Saturation 94.7 L ABG O2 Content 21.2 ABG Base Excess 4.3 A-a Gradient 25.1 Oxyhemoglobin 93.9 Carboxyhemoglobin 0.6 Methemoglobin 0.1 Reduced Hemoglobin 5.4 H Total Hemoglobin 16.1 O2 Delivery Device Room air O2 Liters/Min Not Reportable FiO2 21 NT-Pro-B Natriuret Pep 305 H
[2025-04-05] MEDS: ACETAMINOPHEN 325 MG TABLET 650 MG PO (08:47)
[2025-04-05] MEDS: guaiFENesin 12 HR 600 MG TABCR 1200 MG PO (08:48)
[2025-04-05 08:49] VITALS: PULSE 93; RESP 18; O2SAT 97
[2025-04-05] MEDS: IPRATROPIUM BR 0.02% INH SOLN 0.5 MG/2.5 ML VIAL INHALATION (08:49)
[2025-04-05] MEDS: BUDESONIDE RESPULE NEB 0.5 MG/2 ML AMP INHALATION (08:49)
[2025-04-05 09:00] VITALS: PULSE 95; RESP 18
--- NOTE | 2025-04-05 10:54 | P.DS_ITS ---
DS: Admitting Diagnosis Discharge Date 04/05/25 Admitting Diagnosis Shortness of breath DS: Discharge Diagnosis Discharge Diagnosis (1) Acute on chronic respiratory failure with hypoxia and hypercapnia: Code(s): J96.21 - Acute and chronic respiratory failure with hypoxia; J96.22 - Acute and chronic respiratory failure with hypercapnia Status: Acute (2) Chronic sinusitis: Qualifiers: Sinusitis location: unspecified location Qualified Code(s): J32.9 - Chronic sinusitis, unspecified Code(s): J32.9 - Chronic sinusitis, unspecified Status: Acute (3) Hypertension: Qualifiers: Hypertension type: primary hypertension Qualified Code(s): I10 - Essential (primary) hypertension Code(s): I10 - Essential (primary) hypertension Status: Chronic (4) Morbid obesity with BMI of 50.0-59.9, adult: Code(s): E66.01 - Morbid (severe) obesity due to excess calories; Z68.43 - Body mass index [BMI] 50.0-59.9, adult Status: Acute DS: Summary Hospital Course Reason for hospitalization: 64yo female patient with chronic sinusitis, morbid obesitiy and chronic hypoxic respiratory failure requiring 2 L per nasal cannula overnight who was discharged from this hospital approximately 5 days ago with community-acquired pneumonia who returns for SOB. Jordan see H&P for details. Hospital Course: The following medical conditions were addressed during her hospital course: (1) Acute on chronic hypoxemic respiratory failure: The patient is on O2 at night chronically and has chronic hypercapnia c/w hypoventilation syndrome. ABG showing 7.36/55/68 on 4L. CXR was clear. Pulmonary was consulted and medications adjusted. Influenza, RSV and gacria PCR were negative. She was stared on Duonebs, Azithromycin and Soku-Medrol. She had cl inical improvement and was able to be weaned to room air. ABG at timeof discharge was 7.43/45/71 on RA. (2) Chronic sinusitis: Regarding her chronic sinusitis, she has declined Flonase, antihistamines, ipratropium nasal spray in the past. She has been followed by ENT. CT sinuses here showing severe mucosal thickening in the frontal sinuses bilaterally, the right frontal sinuses are diminutive. Moderate mucosal thickening in the ethmoidal air cells bilaterally in the maxillary sinuses with moderate mucosal thickening noted also in the sphenoid sinuses. The ostiomeatal complex on the left is obstructed. The ostiomeatal complex on the right is narrowed. The nasal septum is posteriorly deviated to the left with mild thickening of the turbinates with no significant narrowing of the nasal cavities. There is no osseous destruction or wall thickening identified. ENT consulted and they felt that patient was not a good candidate for sinus surgery because she has not adequately trialed medical management, she is non-compliance, and that she would not do well postoperatively. The patient declines surgery as well. Continue to encourage medical management. (3) Pneumonia: CXR clear. WBC was elevated at 21K but felt stress related. This normalized the following day. She received 1 dose of azithromycin but not continued. Urine antigens and sputum culture pending. It was not felt that she had pneumonia. Pneumonia ruled out (4) Hypertension: Blood pressure monitored per protocol. Blood pressure remained well controlled a majority of the time. The patient overall did well and was able to be discharged home on 04/05/25. Discharge instructions discussed including medication side effects and all questions answered. Status at Discharge Cognitive/behavioral status at discharge: stable Time Spent with Patient Time attestation: Total time spent providing and/or coordinating discharge services: 38 minutes Time spent: Greater than 30 minutes Exam Narrative: AF 97.4 149/94 92 20 97% ra Gen - NARD Chest - CTA bilaterally, nml RR CV - RRR S1/S2. Tele showing no signifincat dysrhythmias Abd - Soft, obese, NT Ext - No pedal edema Psych - Nml mood and affect Skin - Warm and dry DS: Data Data Completed and Pending Labs on day of discharge: Labs from last 24 hours 04/04/25 04/04/25 10:27 06:03 Puncture Site Right radial ABG pH 7.435 ABG pCO2 44.6 ABG pO2 71.2 L ABG PO2/FiO2 Ratio 3.39 ABG HCO3 29.3 H ABG O2 Saturation 94.7 L ABG O2 Content 21.2 ABG Base Excess 4.3 A-a Gradient 25.1 Oxyhemoglobin 93.9 Carboxyhemoglobin 0.6 Methemoglobin 0.1 Reduced Hemoglobin 5.4 H Total Hemoglobin 16.1 O2 Delivery Device Room air O2 Liters/Min Not Reportable FiO2 21 NT-Pro-B Natriuret Pep 305 H Discharge Plan Discharge Attending physician on discharge: Gabriel Prince Consulting providers: Neena Bailey; Chris Muhammad; Mannie Aldrich Discharging Clinician: Gabriel Prince Anticipated Discharge Date/Time: 04/05/25 11:14 Patient Disposition: Home Activity: as tolerated Diet: heart healthy Discharge Instructions: Continue to wear 1L Oxygen at night and with naps. You do not need oxygen at rest or with activity. Check blood pressure 1 to 2 times a day. Record and bring into your doctor for review. Call your doctor if your blood pressure is greater than 180/110. Take precautions to avoid falls. Rise slowly from a lying or sitting position. Pause before standing or walking. Contact your doctor or call 911 and come to the Emergency Room if you have increasing shortness of breath or other worrisome symptoms. Avoid NSAIDs (ibuprofen, naproxen, Aleve). Tylenol is safe to take. Follow-up with your primary care provider in 1-2 weeks. Please call for appointment. Follow-up with Pulmonary Clinic in 2-4 weeks. Please call for an appointment. Thank you for using [facility] for your health care needs. Patient Instructions: Antibiotic Form Patient Language: R[place] Stand Alone Forms: General Discharge Information Follow-up/Referrals: Kenia,MD Guido [Primary Care Provider, Unknown] - Call for Appointment Chris Muhammad MD [Physician, Pulmonology] - Call for Appointment Discharge Medications: New budesonide [Pulmicort] 0.5 mg/2 mL Suspension For Nebulization 0.5 mg inhalation Q12HRT Qty: 60 0RF Continued lisinopril 20 mg tablet 10 mg PO HS (DME) nebulizer and compressor Device See Rx Instructions .Route Qty: 1 0RF Rx Instructions: As directed ipratropium bromide 0.02 % Solution 0.5 mg inhalation Q6HRT Qty: 75 0RF guaifenesin [Mucus Relief ER] 600 mg Tablet Extended Release 12hr 1,200 mg PO Q12HR Qty: 30 0RF Discontinued fluticasone propionate 50 mcg/actuation [place],Suspension 2 spray intranasal BID Qty: 16 0RF loratadine 10 mg Tablet 10 mg PO QAM Qty: 15 0RF azithromycin 250 mg tablet 250 mg PO DAILY Qty: 3 0RF Patient Comments: Started 04/01/25 Date of admission: 04/03/25 15:02 Primary Care Provider: KeniaGuido Admitting Provider: Gabriel Prince Attending physician on admission: Gabriel Prince Condition: Stable Hospitalist MIPS Heart Failure (Exclusion) Patient has history of Heart Transplant or Left Ventricular Assistive Device?: No IF YES, STOP HERE Heart Failure (Qualifier) Patient has current or prior documentation of LVEF less than or equal to 40%, or mod/servere depressed LVSF?: No IF NO, STOP HERE
--- NOTE | 2025-04-11 08:04 | PC.NURSE ---
Sputum cx shows routine respiratory suri. Dr. Suresh stone.
--- NOTE | 2025-04-11 08:06 | PC.NURSE ---
Urine legionella Ag is negative. Dr. Suresh stone.
== END 2025-04-05 12:47 | disposition home or self-care (01) | DRG 189 ==
LOC: ANHED 22:17 → ANH3MEDSUR 23:19
PROVIDERS: Internal Medicine Pulmonary Disease; Nurse Practitioner; Admitting Provider Internal Medicine; Emergency Provider Emergency Medicine; PCP Hospitalist; Visit Provider Internal Medicine
DX: J96.21 Acute and chronic respiratory failure with hypoxia (principal); E66.2 Morbid (severe) obesity with alveolar hypoventilation; Z68.43 Body mass index [BMI] 50.0-59.9, adult; J32.9 Chronic sinusitis, unspecified; J96.22 Acute and chronic respiratory failure with hypercapnia; J34.2 Deviated nasal septum; D75.1 Secondary polycythemia; G47.10 Hypersomnia, unspecified; J45.909 Unspecified asthma, uncomplicated; R42 Dizziness and giddiness; T45.0X5A Adverse effect of antiallergic and antiemetic drugs, initial encounter; T49.6X5A Adverse effect of otorhinolaryngological drugs and preparations, initial encounter; R23.2 Flushing; I10 Essential (primary) hypertension; K02.9 Dental caries, unspecified; Z20.822 Contact with and (suspected) exposure to COVID-19; Z87.01 Personal history of pneumonia (recurrent); Z91.148 Patient's other noncompliance with medication regimen for other reason; Z79.51 Long term (current) use of inhaled steroids; Z99.81 Dependence on supplemental oxygen
CPT/HCPCS: 36415; 36600; 70486; 71045; 80048; 82375; 82805; 83050; 83880; 84145; 84484; 85018; 85025; 85027; 85380; 85610; 85730; 86140; 87070; 87081; 87205; 87449; 87637; 93005; 94640; 94762; 96374; 96376; 99285; A9270; G0378; J2919